=== PATIENT | female | born 1940 | race Caucasian/White ===

== ENCOUNTER 2016-05-06 10:27 | Inpatient (IN) | payer MEDICARE, OTHER ==
[2016-05-06 11:56] LABS: Glucose,Whole Blood 160 mg/dL (75-99)
--- NOTE | 2016-05-06 14:18 | XR ---
EXAMINATION TYPE: XR chest 2V DATE OF EXAM: 05/06/2016 2:14 PM COMPARISON: 09/24/2015 HISTORY: Cough and congestion FINDINGS: The lungs are clear and there is no pneumothorax, pleural effusion, or focal pneumonia. The heart is enlarged. Hypertrophic and degenerative changes spine noted. Postsurgical change in the right upper quadrant. No overt failure. IMPRESSION: 1. No acute process.
[2016-05-06] MEDS: BUDESONIDE 0.5 MG/2 ML NEBU INHALATION SCH ×2 (15:05→19:31)
[2016-05-06] MEDS: SODIUM CHLORIDE 0.9% 1,000 ML IV SCH (15:09)
[2016-05-06] MEDS: methylPREDNISolone SOD SUCCI 125 MG/2 ML VIAL IV SCH ×3 (15:10→18:05)
[2016-05-06] MEDS: HEPARIN SODIUM,PORCINE 5,000 UNIT/ML 1 ML VIAL SQ SCH (15:11)
[2016-05-06] MEDS: FAMOTIDINE 20 MG TAB PO SCH (15:11)
[2016-05-06] MEDS: IPRATROPIUM-ALBUTEROL 3 ML NEB INHALATION SCH ×2 (15:38→19:31)
[2016-05-06 15:57] LABS: Basophils % (A) 1 %; CH 28.9; Eosinophils # (A) 0.2 k/uL (0-0.7); Eosinophils % (A) 4 %; HDW 2.58; HGB 11.7 gm/dL (11.4-16.0); Luc # (Auto) 0.14; Luc % (Auto) 4; Lymphocytes # (A) 0.8 k/uL (1.0-4.8); Lymphocytes % (A) 20 %; MCH 28.5 pg (25.0-35.0); MCHC 32.4 g/dL (31.0-37.0); Mean Platelet Volume 7.7; Monocytes # (A) 0.3 k/uL (0-1.0); Monocytes % (A) 8 %; Neutrophils # (A) 2.5 k/uL (1.3-7.7); Neutrophils % (A) 63 %; RBC 4.09 m/uL (3.80-5.40); RDW 15.6 % (11.5-15.5); WBC 3.9 k/uL (3.8-10.6); WBC (Perox) 3.89
[2016-05-06 16:11] LABS: Potassium 5.2 mmol/L (3.5-5.1); Total Bilirubin 0.6 mg/dL (0.2-1.3); Total Protein 6.2 g/dL (6.3-8.2)
[2016-05-06] MEDS ORDERED: REPAGLINIDE 1 MG TAB PO SCH ×2 (17:30→20:25)
[2016-05-06 17:39] LABS: Glucose,Whole Blood 237 mg/dL (75-99)
[2016-05-06] MEDS ORDERED: LEVOFLOXACIN 500MG-D5W PMX 500 MG in DEXTROSE/WATER 1 100ML.BAG IVPB SCH (18:30)
[2016-05-06 20:15] LABS: Glucose,Whole Blood 384 mg/dL (75-99)
[2016-05-06] MEDS: MONTELUKAST 10 MG TAB PO SCH (20:36)
[2016-05-06] MEDS ORDERED: INSULIN LISPRO (humaLOG) 300 UNIT/3 ML VIAL SQ SCH (21:00)
[2016-05-06 21:25] LABS: Hemoglobin A1C 7.6 % (4.2-6.1)
[2016-05-06 21:32] LABS: Glucose,Whole Blood 418 mg/dL (75-99)
[2016-05-06] MEDS ORDERED: INSULIN REGULAR BOLUS (FROM DRIP BAG) IV ONE (21:33)
[2016-05-06 22:24] LABS: Glucose,Whole Blood 400 mg/dL (75-99)
[2016-05-06] MEDS: INSULIN REGULAR 100 UNIT in SODIUM CHLORIDE 0.9% 100 ML IV SCH (22:27)
[2016-05-06 22:51] LABS: Glucose,Whole Blood 397 mg/dL (75-99)
[2016-05-06 23:35] LABS: Glucose,Whole Blood 352 mg/dL (75-99)
[2016-05-06 23:50] LABS: Glucose,Whole Blood 350 mg/dL (75-99)
[2016-05-07 00:29] LABS: Glucose,Whole Blood 252 mg/dL (75-99)
[2016-05-07 01:02] LABS: Glucose,Whole Blood 240 mg/dL (75-99)
[2016-05-07] MEDS: methylPREDNISolone SOD SUCCI 125 MG/2 ML VIAL IV SCH ×4 (02:17→17:24)
[2016-05-07] MEDS: HEPARIN SODIUM,PORCINE 5,000 UNIT/ML 1 ML VIAL SQ SCH ×3 (02:17→15:50)
[2016-05-07 02:56] LABS: Glucose,Whole Blood 143 mg/dL (75-99)
[2016-05-07 05:05] LABS: Glucose,Whole Blood 168 mg/dL (75-99)
[2016-05-07] MEDS: SODIUM CHLORIDE 0.9% 1,000 ML IV SCH ×2 (05:13→16:49)
[2016-05-07 06:32] LABS: Glucose,Whole Blood 222 mg/dL (75-99)
[2016-05-07] MEDS: IPRATROPIUM-ALBUTEROL 3 ML NEB INHALATION SCH ×4 (07:29→19:30)
[2016-05-07] MEDS: BUDESONIDE 0.5 MG/2 ML NEBU INHALATION SCH ×2 (07:29→19:30)
[2016-05-07] MEDS ORDERED: INSULIN LISPRO (humaLOG) 300 UNIT/3 ML VIAL SQ SCH (07:30)
[2016-05-07] MEDS: amLODIPine 5 MG TAB PO SCH (08:14)
[2016-05-07] MEDS: ATORVASTATIN 40 MG TAB PO SCH (08:14)
[2016-05-07] MEDS: FAMOTIDINE 20 MG TAB PO SCH (08:15)
[2016-05-07] MEDS: VALSARTAN 160 MG TAB PO SCH (08:15)
[2016-05-07] MEDS: INSULIN LISPRO (humaLOG) 300 UNIT/3 ML VIAL SQ SCH ×3 (08:16→17:26)
[2016-05-07 08:21] LABS: Glucose,Whole Blood 237 mg/dL (75-99)
[2016-05-07 10:37] LABS: Glucose,Whole Blood 186 mg/dL (75-99)
--- NOTE | 2016-05-07 10:58 | HP ---
DATE OF ADMISSION: CHIEF COMPLAINT: A 76-year-old white female with significant respiratory distress. HISTORY OF PRESENT ILLNESS: This is a 76-year-old white female who failed outpatient treatment with antibiotics and steroids and updraft treatments. She developed audible wheezing and shortness of breath. Seen in my office due to significant shortness of breath. She was sent to the hospital due to significant audible wheezing and near syncope. Boyfriend states he has never seen her with this short of breath before. Respiratory rate was increased to 25 to 35 and she was sent to the hospital for direct admission for acute COPD exacerbation/asthma exacerbation after failing outpatient treatment and significant audible wheezing, respiratory distress. She has a history of proliferative drop in her breathing on a short-term basis and needs admission for IV steroids and antibiotics at this time and close monitoring for 24 to 48 hours. Cough is with brown-green phlegm over the past week worsening. As mentioned, she failed multiple outpatient medications prior to admission. She has history of asthma, COPD, for which she sees Dr. Valdivia. No hemoptysis. Increased tachypnea, tachycardia. No chest pain. Near syncope, lightheadedness, dizziness. Allergies to PENICILLIN, LATEX, CODEINE, BENADRYL, ERYTHROMYCIN, IODINE, SULFA, TETANUS, ASPIRIN. MEDICATIONS AT HOME: 1. Albuterol and Atrovent q.i.d. 2. Pulmicort 0.5 b.i.d. 3. Pepcid 20 b.i.d. 4. Atorvastatin 40 daily. 5. Amlodipine 5 mg daily. 6. Singulair 10 mg daily. 7. Diovan 320 daily. History of hypertension, asthma/COPD, dyslipidemia, diabetes mellitus, osteopenia. REVIEW OF SYSTEMS: Fourteen-point review of systems negative except for as mentioned in HPI. PHYSICAL EXAM: Blood pressure is 140 over 60 to 70. O2 sat was 92 on room air, temp 97.5, pulse is in the 80s to 90s. CARDIOVASCULAR: S1, S2. Regular rate and rhythm. Lungs show scattered wheeze x4. Decreased breath sounds x4. Audible wheezing is heard with any talking. Lightheaded, dizziness with ambulation out of a chair. CONSTITUTIONAL: She looks weak, tired, and fatigued from breathing. ABDOMEN: Distended due to obesity. No mass or organomegaly. EXTREMITIES: 1 to 2+ pedal edema bilaterally. MUSCULOSKELETAL: Range of motion full x4. ENT shows some mild thyromegaly. Integument shows decreased skin turgor, dry mucous membranes. ASSESSMENT: 1. Acute asthma/chronic obstructive pulmonary disease exacerbation. 2. Dehydration. 3. Failed outpatient therapy. 4. Diabetes mellitus. 5. Acute respiratory distress secondary to asthma and chronic obstructive pulmonary disease exacerbation. 6. Acute tracheobronchitis, rule out pneumonia. PLAN: IV steroids, updrafts with albuterol and Atrovent and Pulmicort will be needed, IV antibiotics. [facility] Home medicines will be reordered.
[2016-05-07 12:30] LABS: Glucose,Whole Blood 162 mg/dL (75-99)
[2016-05-07 17:02] LABS: Glucose,Whole Blood 315 mg/dL (75-99)
[2016-05-07] MEDS: LEVOFLOXACIN 250 MG TAB PO SCH (17:23)
--- NOTE | 2016-05-07 18:29 | P.CNPUL ---
History of Present Illness Consult date: 05/07/16 Reason for consult: COPD History of present illness: 76-year-old female patient an ex-smoker, coming in for increased shortness of breath. The patient started expressing shortness of breath approximately 3-4 days ago and her breathing progressively got worse to include symptoms of cough congestion wheezing along with dyspnea. No chest pain. No pleurisy. It is a phone acute COPD exacerbation was approximately 6 months ago. She follows up with Dr. Valdivia. Apparently, during this current episode, the patient had taken outpatient antibiotics and steroids and nebulized albuterol treatment without much of an help and for that reason she decided to come into the hospital for further treatment. At this point in time, the patient is on bronchodilators and systemic steroids. Clinically improved. She has still some hyperglycemia and for that reason she was placed on insulin drip at 2 units an hour for tighter blood sugar control. Review of Systems 12 point review of system was done and the positive findings are almost above Past Medical History Past Medical History: COPD, Diabetes Mellitus, Hyperlipidemia, Hypertension, Osteoarthritis (OA), Renal Disease Additional Past Medical History / Comment(s): COPD, NIDDM type II, diverticulitis, lower GI bleed, bowel obstructions with surgery, ckd stage I History of Any Multi-Drug Resistant Organisms: None Reported Past Surgical History: Cholecystectomy, Hysterectomy, Tonsillectomy, Tubal Ligation Additional Past Surgical History / Comment(s): EGDs/colonoscopies, bowel resections due to obstruction x2, bilateral cataracts removed. Past Anesthesia/Blood Transfusion Reactions: No Reported Reaction Past Psychological History: No Psychological Hx Reported Additional Psychological History / Comment(s): Pt resides alone in an apartment. She uses no assistive device. She drives. Smoking Status: Never smoker Past Alcohol Use History: None Reported Past Drug Use History: None Reported - Past Family History Mother Family Medical History: No Reported History Additional Family Medical History / Comment(s): Mother was healthy and lived to be 79yrs old. Brother(s) Family Medical History: Diabetes Mellitus Medications and Allergies Home Medications Medication Instructions Recorded Confirmed Type amLODIPine/VALSARTAN 1 tab PO DAILY 09/24/15 05/06/16 History [amLODIPine/VALSARTAN 5-320 mg] Atorvastatin [Lipitor] 40 mg PO DAILY 09/25/15 05/06/16 History Calcium Carbonate [Calcium] 600 mg PO DAILY 05/06/16 05/06/16 History Linagliptin/Metformin HCl 1 tab PO BID 05/06/16 05/06/16 History [Jentadueto 2.5 mg-500 mg Tab] Repaglinide [Prandin] 4 mg PO AC-TID 05/06/16 05/06/16 History Allergies Allergy/AdvReac Type Severity Reaction Status Date / Time Penicillins Allergy Severe Rash/Hives Verified 05/06/16 20:13 latex Allergy Unknown Rash/Hives/ Verified 05/06/16 20:13 Blisters codeine Allergy Rash/Hives Verified 05/06/16 20:13 diphenhydramine HCl Allergy Swelling Verified 05/06/16 20:13 [From Benadryl] erythromycin base Allergy Rash/Hives Verified 05/06/16 20:13 Iodinated Contrast Media - Allergy Rash/Hives Verified 05/06/16 20:13 Oral and [Iodinated Contrast Media - IV Dye] iodine Allergy Rash/Hives Verified 05/06/16 20:13 Sulfa (Sulfonamide Allergy Rash/Hives Verified 05/06/16 20:13 Antibiotics) Tetanus Vaccines and Toxoid Allergy Unknown Verified 05/06/16 20:13 [Tetanus Vaccines & Toxoid] Tetracyclines Allergy Rash/Hives Verified 05/06/16 20:13 aspirin AdvReac GI Bleed Verified 05/06/16 20:13 Physical Exam Vitals: Vital Signs Temp Pulse Pulse Pulse Resp BP Pulse Ox 05/07/16 16:00 101 H 84 18 05/07/16 14:27 97.7 F 84 18 136/67 94 L 05/07/16 11:31 80 05/07/16 11:20 80 95 05/07/16 08:00 101 H 75 18 05/07/16 07:00 97.5 F L 75 18 134/64 95 05/06/16 21:40 98.7 F 98 16 136/68 96 05/06/16 19:47 81 05/06/16 19:34 81 Intake and Output 05/07/16 05/07/16 05/07/16 06:59 14:59 22:59 Intake Total 676.791 22.709 1.5 Balance 676.791 22.709 1.5 Intake: IV 600 Sodium Chloride 0.9% 1, 600 000 ml @ 75 mls/hr IV . [id number] [facility] Rx#:[id number] Intake, IV Titration 76.791 22.709 1.5 Amount Insulin Regular 100 unit 76.791 22.709 1.5 In Sodium Chloride 0.9% 100 ml @ Titrate IV .Q0M [facility] Rx#:[id number] Other: Voiding Method Toilet Toilet # Voids 2 1 Head exam was generally normal. There was no scleral icterus or corneal arcus. Mucous membranes were moist.Neck was supple and without jugular venous distension, thyromegaly, or carotid bruits. Carotids were easily palpable bilaterally. There was no adenopathy. Lung sounds are diminished bilaterally along with some few scattered external wheeze.Cardiac exam revealed the PMI to be normally situated and sized. The rhythm was regular and no extrasystoles were noted during several minutes of auscultation. The first and second heart sounds were normal and physiologic splitting of the second heart sound was noted. There were no murmurs, rubs, clicks, or gallops.Abdominal exam revealed normal bowel sounds. The abdomen was soft, non-tender, and without masses, organomegaly, or appreciable enlargement of the abdominal aorta.Examination of the extremities revealed easily palpable radial, femoral and pedal pulses. There was no cyanosis, clubbing or edema. Results - Laboratory Findings CBC and BMP: 05/06/16 15:31 05/06/16 15:31 Abnormal lab findings: Abnormal Labs 05/06/16 05/06/16 05/06/16 11:48 15:31 15:31 RDW 15.6 H Lymphocytes # 0.8 L Potassium 5.2 H BUN 30 H Creatinine 1.58 H Glucose 248 H POC Glucose (mg/dL) 160 H Hemoglobin A1c Total Protein 6.2 L 05/06/16 05/06/16 05/06/16 15:31 17:27 20:13 RDW Lymphocytes # Potassium BUN Creatinine Glucose POC Glucose (mg/dL) 237 H 384 H Hemoglobin A1c 7.6 H Total Protein 05/06/16 05/06/16 05/06/16 21:30 22:23 22:50 RDW Lymphocytes # Potassium BUN Creatinine Glucose POC Glucose (mg/dL) 418 H 400 H 397 H Hemoglobin A1c Total Protein 05/06/16 05/06/16 05/07/16 23:34 23:49 00:27 RDW Lymphocytes # Potassium BUN Creatinine Glucose POC Glucose (mg/dL) 352 H 350 H 252 H Hemoglobin A1c Total Protein 05/07/16 05/07/16 05/07/16 01:01 02:44 04:59 RDW Lymphocytes # Potassium BUN Creatinine Glucose POC Glucose (mg/dL) 240 H 143 H 168 H Hemoglobin A1c Total Protein 05/07/16 05/07/16 05/07/16 06:27 08:20 10:34 RDW Lymphocytes # Potassium BUN Creatinine Glucose POC Glucose (mg/dL) 222 H 237 H 186 H Hemoglobin A1c Total Protein 05/07/16 05/07/16 12:29 17:00 RDW Lymphocytes # Potassium BUN Creatinine Glucose POC Glucose (mg/dL) 162 H 315 H Hemoglobin A1c Total Protein - Diagnostic Findings Chest x-ray: image reviewed Assessment and Plan Plan: Assessment 1 acute COPD exacerbation, recovering 2 shortness of breath secondary to above, recovering 3 chronic renal insufficiency, currently stable 4 diabetes mellitus currently on insulin drip for blood sugar control due to steroid-induced hyperglycemia 5 hypertension 6 hyperlipidemia Plan Agree on the current treatment. Recommend outpatient maintenance medication for this patient and my recommendation would include Spiriva 1 addition day along albuterol nebulized treatments or HFA on an as needed basis. Clinically much improved and the patient can be switched to prednisone burst taper with the next 24 hours. Encourage ablation in the hallway. We'll likely, of insulin drip once the IV Solu Medrol was discontinued. We'll follow.
[2016-05-07 18:59] LABS: Glucose,Whole Blood 301 mg/dL (75-99)
[2016-05-07] MEDS: INSULIN REGULAR 100 UNIT in SODIUM CHLORIDE 0.9% 100 ML IV SCH (19:27)
[2016-05-07] MEDS: MONTELUKAST 10 MG TAB PO SCH (19:30)
[2016-05-07] MEDS ORDERED: SODIUM CHLORIDE 0.65% NASAL SPRAY 44 ML BTL NASAL PRN (21:01)
[2016-05-07 21:04] LABS: Glucose,Whole Blood 238 mg/dL (75-99)
[2016-05-07 22:55] LABS: Glucose,Whole Blood 170 mg/dL (75-99)
[2016-05-08] MEDS: methylPREDNISolone SOD SUCCI 125 MG/2 ML VIAL IV SCH ×5 (00:02→23:08)
[2016-05-08] MEDS: HEPARIN SODIUM,PORCINE 5,000 UNIT/ML 1 ML VIAL SQ SCH ×4 (00:02→23:08)
[2016-05-08 01:00] LABS: Glucose,Whole Blood 177 mg/dL (75-99)
[2016-05-08 03:02] LABS: Glucose,Whole Blood 183 mg/dL (75-99)
[2016-05-08] MEDS: IPRATROPIUM-ALBUTEROL 3 ML NEB INHALATION SCH ×5 (04:14→19:35)
[2016-05-08 05:04] LABS: Glucose,Whole Blood 190 mg/dL (75-99)
[2016-05-08] MEDS: INSULIN REGULAR 100 UNIT in SODIUM CHLORIDE 0.9% 100 ML IV SCH ×2 (05:21→21:24)
[2016-05-08] MEDS: SODIUM CHLORIDE 0.9% 1,000 ML IV SCH ×2 (06:08→20:30)
[2016-05-08 07:50] LABS: Glucose,Whole Blood 221 mg/dL (75-99)
[2016-05-08] MEDS: BUDESONIDE 0.5 MG/2 ML NEBU INHALATION SCH ×2 (08:07→19:33)
[2016-05-08] MEDS: FAMOTIDINE 20 MG TAB PO SCH (08:42)
[2016-05-08] MEDS: INSULIN LISPRO (humaLOG) 300 UNIT/3 ML VIAL SQ SCH ×3 (08:42→17:16)
[2016-05-08] MEDS: amLODIPine 5 MG TAB PO SCH (08:44)
[2016-05-08] MEDS: ATORVASTATIN 40 MG TAB PO SCH (08:44)
[2016-05-08] MEDS: VALSARTAN 160 MG TAB PO SCH (08:44)
[2016-05-08 09:29] LABS: Glucose,Whole Blood 322 mg/dL (75-99)
--- NOTE | 2016-05-08 10:13 | CDI ---
In responding to this query, please exercise your independent professional judgment. The [facility] Coding Staff and Clinical Documentation Specialists appreciate your assistance in clarifying documentation, maintaining compliance with coding guidelines, accurately documenting patients condition and capturing severity of illness. The fact that a question is asked does not imply that any particular answer is desired or expected. Communication forms are a method of clarifying documentation and are not made part of the Legal Health Record. Thank you in advance for your clarification. Last Revision, June 2015 Judy Wilkes [address] [facility] [place] [address] Documentation Clarification Form Date: 05/08/2016 9:54:00 AM From: Kristen Khan Admit Date: 05/06/2016 11:00:00 AM Patient Name: Page Travis Visit Number: [id number] Discharge Date: Dr. Alexander Sarkar/Tata Welch [employer] Asthma is documented in the H&P Patient history/risk factors: Asthma, COPD, Diabetes mellitus, Hypertension Clinical Indicators: Developed audible wheezing and shortness of breath, Cough productive. Chest x-ray: no acute process Vital Signs: 136/77 101 18 97.0 98 RA Treatment: Updrafts: with Albuterol and Atrovent and Pulmicort Solu-Medrol IV Levaquin PO IV @ 75/ml hrs Singular PO Consults: Pulmonary: Acute COPD exacerbation In your professional opinion, can you please further specify Asthma, if known? With Acute Exacerbation Status asthmaticus Acute lower respiratory infection COPD (specify with or without exacerbation) Chronic obstructive bronchitis Other, please specify Unable to determine Severity Mild intermittent Mild persistent Moderate persistent Severe persistent Other, please specify Unable to determine Form or Type Cough variant Childhood Exercise induced bronchospasm Extrinsic allergic Idiosyncratic Intrinsic nonallergic Late-onset Mixed Other, please specify Unable to determine Please document in your progress notes and discharge summary in order to capture severity of illness and risk of mortality. Include clinical findings that support your diagnosis. FYI: Press F11 to launch patient chart. Place X here if this finding has no clinical significance, is not applicable or if you are not able to provide any additional documentation. MTDD
[2016-05-08 11:47] LABS: Glucose,Whole Blood 370 mg/dL (75-99)
--- NOTE | 2016-05-08 13:48 | P.PN ---
Subjective 76-year-old being seen with the attending. Patient stated that she had a bad night last night with very short of breath. Patient has audible wheezing noted this morning. Patients being followed by pulmonology service for acute exacerbation COPD currently patient is on an insulin drip per protocol secondary to steroid-induced hyperglycemia. Currently on IV Solu-Medrol 60 every 6 hours per pulmonology's recommendation Patient is stating that she lives in an apartment complex in which the patient states is exposed to secondhand smoke Objective - Vital Signs Vital signs: Vital Signs Temp 97.5 F L 05/08/16 07:00 Pulse 92 05/08/16 11:08 Resp 18 05/08/16 08:00 BP 131/70 05/08/16 07:00 Pulse Ox 97 05/08/16 07:00 Intake & Output 05/07/16 05/08/16 05/08/16 18:59 06:59 18:59 Intake Total 24.209 794.991 32.078 Balance 24.209 794.991 32.078 Intake: Intake, IV Titration 24.209 34.991 32.078 Amount Insulin Regular 100 unit 24.209 34.991 32.078 In Sodium Chloride 0.9% 100 ml @ Titrate IV .Q0M [facility] Rx#:[id number] Oral 760 Other: Voiding Method Toilet Toilet Toilet # Voids 1 2 - Exam Physical exam 76-year-old female sitting up in bed currently taking a lunch diet talkative states feels short of breath with any exertion Lungs coarse rhonchi throughout with audible prolonged expiratory wheezing noted current nasal cannula 2 L Heart S1-S2 audible regular no murmur abdomen soft nondistended no nausea vomiting Extremities no edema noted - Labs CBC & Chem 7: 05/06/16 15:31 05/06/16 15:31 Labs: Abnormal Lab Results - Last 24 Hours (Table) 05/07/16 05/07/16 05/07/16 Range/Units 17:00 18:57 20:52 POC Glucose (mg/dL) 315 H 301 H 238 H (75-99) mg/dL 05/07/16 05/08/16 05/08/16 Range/Units 22:53 00:56 03:01 POC Glucose (mg/dL) 170 H 177 H 183 H (75-99) mg/dL 05/08/16 05/08/16 05/08/16 Range/Units 04:59 07:25 09:21 POC Glucose (mg/dL) 190 H 221 H 322 H (75-99) mg/dL 05/08/16 Range/Units 11:42 POC Glucose (mg/dL) 370 H (75-99) mg/dL Assessment and Plan Plan: Impression Hypertension Present on admission shortness of breath due to an acute exacerbation of COPD Hyperglycemic episodes suspect due to IV steroids Hyperlipidemia Present on admission shortness of breath suspect due to an exacerbation COPD Anxiety disorder nonspecified suspect worse with IV Solu-Medrol Shortness of breath suspect unspecified bronchial asthma triggered by exposure to secondhand smoke Plan Continue with recommendations by pulmonology service defer to Continue IV Solu-Medrol per pulmonology's recommendations DVT and GI prophylaxis Resume home meds as appropriate Further recommendations pending will follow The above dictated assessment and findings were discussed with dr altamirano Impression and the plan of care have been dictated as directed. Tata Welch nurse practitioner acting as a scribe for dr altamirano
[2016-05-08 14:26] LABS: Glucose,Whole Blood 375 mg/dL (75-99)
--- NOTE | 2016-05-08 16:03 | P.PN ---
Subjective This is a very pleasant 76-year-old female patient who follows with Dr. Alexander Sarkar as her primary care physician. She also follows with Dr. Valdivia in our office for chronic obstructive pulmonary disease. She presented here with complaints of increasing shortness of breath cough and congestion. She is treated for COPD exacerbation. She is seen again today 05/08/2016 in follow- up. She is awake and alert in no acute distress. She states she does have a continued tightness in her chest and shortness of breath on exertion. She is a dry nonproductive cough. No chills or night sweats. She is maintaining good O2 saturations in the upper 90s on room air. She is afebrile. Objective - Vital Signs Vital signs: Vital Signs Temp 98.1 F 05/08/16 15:00 Pulse 96 05/08/16 15:41 Resp 18 05/08/16 15:00 BP 117/58 05/08/16 15:00 Pulse Ox 98 05/08/16 15:00 Intake & Output 05/07/16 05/08/16 05/08/16 18:59 06:59 18:59 Intake Total 24.209 794.991 32.078 Balance 24.209 794.991 32.078 Intake: Intake, IV Titration 24.209 34.991 32.078 Amount Insulin Regular 100 unit 24.209 34.991 32.078 In Sodium Chloride 0.9% 100 ml @ Titrate IV .Q0M [facility] Rx#:[id number] Oral 760 Other: Voiding Method Toilet Toilet Toilet # Voids 1 2 3 - Exam GENERAL EXAM: Alert, comfortable in no apparent distress. HEAD: Normocephalic. EYES: Normal reaction of pupils, equal size. NOSE: Clear with pink turbinates. THROAT: No erythema or exudates. NECK: No masses, no JVD. CHEST: No chest wall deformity. LUNGS: Equal air entry with no crackles, wheeze, rhonchi or dullness. CVS: S1 and S2 normal with no audible mumurs, regular rhythm. ABDOMEN: No hepatosplenomegaly, normal bowel sounds, no guarding or rigidity. SPINE: No scoliosis or deformity SKIN: No rashes CENTRAL NERVOUS SYSTEM: No focal deficits, tone is normal in all 4 extremities. Extremities: There is no significant peripheral edema. No clubbing, no cyanosis. Peripheral pulses are intact. - Labs CBC & Chem 7: 05/06/16 15:31 05/06/16 15:31 Labs: Abnormal Lab Results - Last 24 Hours (Table) 05/07/16 05/07/16 05/07/16 Range/Units 17:00 18:57 20:52 POC Glucose (mg/dL) 315 H 301 H 238 H (75-99) mg/dL 05/07/16 05/08/16 05/08/16 Range/Units 22:53 00:56 03:01 POC Glucose (mg/dL) 170 H 177 H 183 H (75-99) mg/dL 05/08/16 05/08/16 05/08/16 Range/Units 04:59 07:25 09:21 POC Glucose (mg/dL) 190 H 221 H 322 H (75-99) mg/dL 05/08/16 05/08/16 Range/Units 11:42 14:21 POC Glucose (mg/dL) 370 H 375 H (75-99) mg/dL Assessment and Plan Plan: Impression: #1 Acute exacerbation of chronic obstructive pulmonary disease. #2 Dyspnea secondary to above. #3 Chronic renal insufficiency, currently stable. #4 Diabetes mellitus with steroid-induced hyperglycemia maintained on insulin drip. #5 Hypertension. #6 Hyperlipidemia. Plan: The patient was seen and evaluated by Dr. Rodriguez. She is improved today as compared to yesterday but not quite back to her baseline. We'll continue with her current pulmonary medications. We will increase her activity as tolerated. We'll continue to follow make further recommendations based on her clinical status.
[2016-05-08 17:12] LABS: Glucose,Whole Blood 349 mg/dL (75-99)
[2016-05-08] MEDS: LEVOFLOXACIN 250 MG TAB PO SCH (17:16)
[2016-05-08 19:07] LABS: Glucose,Whole Blood 296 mg/dL (75-99)
[2016-05-08] MEDS: MONTELUKAST 10 MG TAB PO SCH (20:29)
[2016-05-08 21:18] LABS: Glucose,Whole Blood 282 mg/dL (75-99)
[2016-05-08 23:08] LABS: Glucose,Whole Blood 293 mg/dL (75-99)
[2016-05-08] MEDS: IPRATROPIUM-ALBUTEROL 3 ML NEB INHALATION PRN (23:20)
[2016-05-09 01:10] LABS: Glucose,Whole Blood 282 mg/dL (75-99)
[2016-05-09] MEDS: IPRATROPIUM-ALBUTEROL 3 ML NEB INHALATION PRN (03:50)
[2016-05-09 04:12] LABS: Glucose,Whole Blood 197 mg/dL (75-99)
[2016-05-09 05:11] LABS: Glucose,Whole Blood 183 mg/dL (75-99)
[2016-05-09] MEDS: methylPREDNISolone SOD SUCCI 125 MG/2 ML VIAL IV SCH ×3 (05:15→17:08)
[2016-05-09 07:13] LABS: Glucose,Whole Blood 214 mg/dL (75-99)
[2016-05-09] MEDS: IPRATROPIUM-ALBUTEROL 3 ML NEB INHALATION SCH ×4 (07:31→19:53)
[2016-05-09] MEDS: BUDESONIDE 0.5 MG/2 ML NEBU INHALATION SCH ×2 (07:31→19:52)
[2016-05-09] MEDS: INSULIN LISPRO (humaLOG) 300 UNIT/3 ML VIAL SQ SCH ×3 (08:13→17:07)
[2016-05-09] MEDS: HEPARIN SODIUM,PORCINE 5,000 UNIT/ML 1 ML VIAL SQ SCH ×2 (08:14→17:07)
[2016-05-09 08:15] LABS: Calcium 9.2 mg/dL (8.4-10.2); Potassium 4.9 mmol/L (3.5-5.1); Total Bilirubin 0.4 mg/dL (0.2-1.3); Total Protein 5.7 g/dL (6.3-8.2)
[2016-05-09] MEDS: ATORVASTATIN 40 MG TAB PO SCH (08:15)
[2016-05-09] MEDS: FAMOTIDINE 20 MG TAB PO SCH (08:15)
[2016-05-09] MEDS: amLODIPine 5 MG TAB PO SCH (08:16)
[2016-05-09] MEDS: VALSARTAN 160 MG TAB PO SCH (08:17)
[2016-05-09 10:52] LABS: Glucose,Whole Blood 300 mg/dL (75-99)
[2016-05-09] MEDS: SODIUM CHLORIDE 0.9% 1,000 ML IV SCH (10:53)
[2016-05-09] MEDS ORDERED: FUROSEMIDE 10 MG/ML 4 ML VIAL IV STA (11:08)
[2016-05-09] MEDS ORDERED: guaiFENesin-DM 100-10MG/5ML 10 ML CUP PO SCH (11:15)
--- NOTE | 2016-05-09 11:43 | P.PN ---
Subjective Principal diagnosis: Acute exacerbation of COPD Patient seen and examined covering for Dr. Alexander Sarkar. The patient states that she does not feel good. Her breathing is worse today. She does not feel better since coming in. She does follow with Dr. Rodriguez. Objective - Vital Signs Vital signs: Vital Signs Temp 97.5 F L 05/09/16 07:00 Pulse 88 05/09/16 11:35 Resp 18 05/09/16 08:00 BP 135/65 05/09/16 07:00 Pulse Ox 98 05/09/16 07:00 Intake & Output 05/08/16 05/09/16 05/09/16 18:59 06:59 18:59 Intake Total 82.578 271.982 16.386 Balance 82.578 271.982 16.386 Intake: IV 160 Sodium Chloride 0.9% 1, 160 000 ml @ 75 mls/hr IV . [id number] [facility] Rx#:[id number] Intake, IV Titration 82.578 61.982 16.386 Amount Insulin Regular 100 unit 82.578 61.982 16.386 In Sodium Chloride 0.9% 100 ml @ Titrate IV .Q0M [facility] Rx#:[id number] Oral 50 Other: Voiding Method Toilet Toilet Toilet # Voids 3 1 - Exam Gen.: Patient is retired 3, no acute distress, overweight Cardiovascular: Regular rate and rhythm, S1/S2 Lungs: Coarse breath sounds bilaterally with expiratory wheezing Abdomen: Soft nontender nondistended positive bowel sounds Extremities: No edema - Labs CBC & Chem 7: 05/06/16 15:31 05/09/16 07:14 Labs: Abnormal Lab Results - Last 24 Hours (Table) 05/08/16 05/08/16 05/08/16 Range/Units 11:42 14:21 17:10 Sodium (137-145) mmol/L Carbon Dioxide (22-30) mmol/L BUN (7-17) mg/dL Creatinine (0.52-1.04) mg/dL Glucose (74-99) mg/dL POC Glucose (mg/dL) 370 H 375 H 349 H (75-99) mg/dL Total Protein (6.3-8.2) g/dL 05/08/16 05/08/16 05/08/16 Range/Units 19:03 20:57 23:07 Sodium (137-145) mmol/L Carbon Dioxide (22-30) mmol/L BUN (7-17) mg/dL Creatinine (0.52-1.04) mg/dL Glucose (74-99) mg/dL POC Glucose (mg/dL) 296 H 282 H 293 H (75-99) mg/dL Total Protein (6.3-8.2) g/dL 05/09/16 05/09/16 05/09/16 Range/Units 00:56 04:10 04:59 Sodium (137-145) mmol/L Carbon Dioxide (22-30) mmol/L BUN (7-17) mg/dL Creatinine (0.52-1.04) mg/dL Glucose (74-99) mg/dL POC Glucose (mg/dL) 282 H 197 H 183 H (75-99) mg/dL Total Protein (6.3-8.2) g/dL 05/09/16 05/09/16 05/09/16 Range/Units 07:04 07:14 10:50 Sodium 136 L (137-145) mmol/L Carbon Dioxide 18 L (22-30) mmol/L BUN 45 H (7-17) mg/dL Creatinine 1.76 H (0.52-1.04) mg/dL Glucose 205 H (74-99) mg/dL POC Glucose (mg/dL) 214 H 300 H (75-99) mg/dL Total Protein 5.7 L (6.3-8.2) g/dL Assessment and Plan Plan: Acute exacerbation of COPD Hypertension Present on admission shortness of breath due to an acute exacerbation of COPD Hyperglycemic episodes suspect due to IV steroids Hyperlipidemia Anxiety disorder nonspecified suspect worse with IV Solu-Medrol Shortness of breath suspect unspecified bronchial asthma triggered by exposure to secondhand smoke Plan Continue with recommendations by pulmonology service defer to Continue IV Solu-Medrol per pulmonology's recommendations DVT and GI prophylaxis Resume home meds as appropriate Further recommendations pending will follow
[2016-05-09] MEDS: guaiFENesin-DM 100-10MG/5ML 10 ML CUP PO SCH ×2 (12:17→17:08)
--- NOTE | 2016-05-09 12:47 | XR ---
EXAMINATION TYPE: XR chest 2V DATE OF EXAM: 05/09/2016 12:03 PM COMPARISON: 05/06/2016 HISTORY: 76 year-old female shortness of breath, dyspnea TECHNIQUE: Frontal and lateral views FINDINGS: Heart remains borderline enlarged with elongation of the thoracic aorta. Diffuse interstitial promine nce persists. No consolidation or pleural effusion. IMPRESSION: Overall stable borderline cardiomegaly and diffuse interstitial prominence. Correlate for possible et iologies including mild CHF, bronchitis, or chronic asthma.
[2016-05-09 13:47] LABS: Glucose,Whole Blood 246 mg/dL (75-99)
--- NOTE | 2016-05-09 13:59 | P.PN ---
Subjective This is a very pleasant 76-year-old female patient who follows with Dr. Alexander Sarkar as her primary care physician. She also follows with Dr. Valdivia in our office for chronic obstructive pulmonary disease. She presented here with complaints of increasing shortness of breath cough and congestion. She is treated for COPD exacerbation. She is seen again today 05/09/2016 in follow- up. She is awake and alert in no acute distress. she does state that she is not much improved today as compared to yesterday. She states she does have trouble in the evening and needs to request additional updraft treatments. Her chest x-ray today remains without acute pulmonary process. She is still bronchospastic and wheezy. She has a dry nonproductive cough. Objective - Vital Signs Vital signs: Vital Signs Temp 97.5 F L 05/09/16 07:00 Pulse 88 05/09/16 11:35 Resp 18 05/09/16 08:00 BP 135/65 05/09/16 07:00 Pulse Ox 98 05/09/16 07:00 Intake & Output 05/08/16 05/09/16 05/09/16 18:59 06:59 18:59 Intake Total 82.578 271.982 16.386 Balance 82.578 271.982 16.386 Intake: IV 160 Sodium Chloride 0.9% 1, 160 000 ml @ 75 mls/hr IV . [id number] [facility] Rx#:[id number] Intake, IV Titration 82.578 61.982 16.386 Amount Insulin Regular 100 unit 82.578 61.982 16.386 In Sodium Chloride 0.9% 100 ml @ Titrate IV .Q0M [facility] Rx#:[id number] Oral 50 Other: Voiding Method Toilet Toilet Toilet # Voids 3 1 - Exam GENERAL EXAM: Alert, comfortable in no apparent distress. HEAD: Normocephalic. EYES: Normal reaction of pupils, equal size. NOSE: Clear with pink turbinates. THROAT: No erythema or exudates. NECK: No masses, no JVD. CHEST: No chest wall deformity. LUNGS: Equal air entry with bilateral wheeze. CVS: S1 and S2 normal with no audible murmurs, regular rhythm. ABDOMEN: No hepatosplenomegaly, normal bowel sounds, no guarding or rigidity. SPINE: No scoliosis or deformity SKIN: No rashes CENTRAL NERVOUS SYSTEM: No focal deficits, tone is normal in all 4 extremities. Extremities: There is no significant peripheral edema. No clubbing, no cyanosis. Peripheral pulses are intact. - Labs CBC & Chem 7: 05/06/16 15:31 05/09/16 07:14 Labs: Abnormal Lab Results - Last 24 Hours (Table) 05/08/16 05/08/16 05/08/16 Range/Units 14:21 17:10 19:03 Sodium (137-145) mmol/L Carbon Dioxide (22-30) mmol/L BUN (7-17) mg/dL Creatinine (0.52-1.04) mg/dL Glucose (74-99) mg/dL POC Glucose (mg/dL) 375 H 349 H 296 H (75-99) mg/dL Total Protein (6.3-8.2) g/dL 05/08/16 05/08/16 05/09/16 Range/Units 20:57 23:07 00:56 Sodium (137-145) mmol/L Carbon Dioxide (22-30) mmol/L BUN (7-17) mg/dL Creatinine (0.52-1.04) mg/dL Glucose (74-99) mg/dL POC Glucose (mg/dL) 282 H 293 H 282 H (75-99) mg/dL Total Protein (6.3-8.2) g/dL 05/09/16 05/09/16 05/09/16 Range/Units 04:10 04:59 07:04 Sodium (137-145) mmol/L Carbon Dioxide (22-30) mmol/L BUN (7-17) mg/dL Creatinine (0.52-1.04) mg/dL Glucose (74-99) mg/dL POC Glucose (mg/dL) 197 H 183 H 214 H (75-99) mg/dL Total Protein (6.3-8.2) g/dL 05/09/16 05/09/16 Range/Units 07:14 10:50 Sodium 136 L (137-145) mmol/L Carbon Dioxide 18 L (22-30) mmol/L BUN 45 H (7-17) mg/dL Creatinine 1.76 H (0.52-1.04) mg/dL Glucose 205 H (74-99) mg/dL POC Glucose (mg/dL) 300 H (75-99) mg/dL Total Protein 5.7 L (6.3-8.2) g/dL Assessment and Plan Plan: Impression: #1 Acute exacerbation of chronic obstructive pulmonary disease. On 05/09/2016 she continues to be bronchospastic and wheezing. Chest x-ray reveals no acute pulmonary process. #2 Dyspnea secondary to above. #3 Chronic renal insufficiency, currently stable. #4 Diabetes mellitus with steroid-induced hyperglycemia maintained on insulin drip. #5 Hypertension. #6 Hyperlipidemia. Plan: The patient was seen and evaluated by Dr. Rodriguez. She continues with a dry nonproductive cough and wheezing. Chest x-ray reveals no acute pulmonary process. We'll continue with her current pulmonary medications including DuoNeb inhalations 4 times a day and when necessary, IV Solu-Medrol 60 mg every 6 hours, empiric antibiotics in the form of Levaquin. We'll add Pulmicort and Perforomist inhalations twice a day. We'll also add Robitussin-DM every 6 hours. We will increase her activity as tolerated. We'll continue to follow and make further recommendations based on her clinical status.
[2016-05-09 15:26] LABS: Glucose,Whole Blood 253 mg/dL (75-99)
[2016-05-09] MEDS: INSULIN REGULAR 100 UNIT in SODIUM CHLORIDE 0.9% 100 ML IV SCH (17:03)
[2016-05-09] MEDS: LEVOFLOXACIN 250 MG TAB PO SCH (17:08)
[2016-05-09 17:17] LABS: Glucose,Whole Blood 277 mg/dL (75-99)
[2016-05-09 19:16] LABS: Glucose,Whole Blood 309 mg/dL (75-99)
[2016-05-09] MEDS: FORMOTEROL FUMARATE 20 MCG/2 ML NEBU INHALATION SCH (19:52)
[2016-05-09] MEDS ORDERED: BUDESONIDE 0.5 MG/2 ML NEBU INHALATION SCH (20:00)
[2016-05-09] MEDS: MONTELUKAST 10 MG TAB PO SCH (20:53)
[2016-05-09 21:02] LABS: Glucose,Whole Blood 330 mg/dL (75-99)
[2016-05-09 23:07] LABS: Glucose,Whole Blood 279 mg/dL (75-99)
[2016-05-10] MEDS: HEPARIN SODIUM,PORCINE 5,000 UNIT/ML 1 ML VIAL SQ SCH ×3 (00:08→15:17)
[2016-05-10] MEDS: guaiFENesin-DM 100-10MG/5ML 10 ML CUP PO SCH ×4 (00:08→17:02)
[2016-05-10] MEDS: methylPREDNISolone SOD SUCCI 125 MG/2 ML VIAL IV SCH ×4 (00:08→17:02)
[2016-05-10 01:26] LABS: Glucose,Whole Blood 186 mg/dL (75-99)
[2016-05-10 03:13] LABS: Glucose,Whole Blood 159 mg/dL (75-99)
[2016-05-10 05:09] LABS: Glucose,Whole Blood 162 mg/dL (75-99)
[2016-05-10] MEDS: SODIUM CHLORIDE 0.9% 1,000 ML IV SCH ×4 (05:13→15:16)
[2016-05-10] MEDS: IPRATROPIUM-ALBUTEROL 3 ML NEB INHALATION SCH ×4 (07:21→19:22)
[2016-05-10] MEDS: BUDESONIDE 0.5 MG/2 ML NEBU INHALATION SCH ×2 (07:21→19:22)
[2016-05-10] MEDS: FORMOTEROL FUMARATE 20 MCG/2 ML NEBU INHALATION SCH ×2 (07:21→19:22)
[2016-05-10 07:22] LABS: Glucose,Whole Blood 190 mg/dL (75-99)
[2016-05-10] MEDS: FAMOTIDINE 20 MG TAB PO SCH (07:24)
[2016-05-10] MEDS: VALSARTAN 160 MG TAB PO SCH (07:25)
[2016-05-10] MEDS: ATORVASTATIN 40 MG TAB PO SCH (07:25)
[2016-05-10] MEDS: amLODIPine 5 MG TAB PO SCH (07:25)
[2016-05-10] MEDS: INSULIN LISPRO (humaLOG) 300 UNIT/3 ML VIAL SQ SCH ×3 (07:25→17:02)
[2016-05-10 09:14] LABS: Glucose,Whole Blood 251 mg/dL (75-99)
[2016-05-10 11:31] LABS: Glucose,Whole Blood 247 mg/dL (75-99)
[2016-05-10 13:32] LABS: Glucose,Whole Blood 211 mg/dL (75-99)
--- NOTE | 2016-05-10 14:50 | P.PN ---
Subjective 76-year-old female patient an ex-smoker, coming in for increased shortness of breath. The patient started expressing shortness of breath approximately 3-4 days ago and her breathing progressively got worse to include symptoms of cough congestion wheezing along with dyspnea. No chest pain. No pleurisy. It is a phone acute COPD exacerbation was approximately 6 months ago. She follows up with Dr. Valdivia. Apparently, during this current episode, the patient had taken outpatient antibiotics and steroids and nebulized albuterol treatment without much of an help and for that reason she decided to come into the hospital for further treatment. At this point in time, the patient is on bronchodilators and systemic steroids. Clinically improved. She has still some hyperglycemia and for that reason she was placed on insulin drip at 2 units an hour for tighter blood sugar control. On 05/10/2016, the patient is being seen in follow-up. She remains bronchus spastic and wheezy and there is been limited improvement in her acute COPD exacerbation with a past 24-48 hours. He is on this, I opted to put the patient a combination of Perforomist and Pulmicort neb last treatment twice a day, albuterol and Atrovent about treatments 4 times a day, IV Solu-Medrol. The patient remains on 40 units of insulin for blood sugar control. Chest x- ray remains free of any pulmonary infiltrates or pneumonia. Objective - Vital Signs Vital signs: Vital Signs Temp 97 F L 05/10/16 07:00 Pulse 84 05/10/16 11:15 Resp 20 05/10/16 07:59 BP 154/78 05/10/16 07:00 Pulse Ox 100 05/10/16 07:00 Intake & Output 05/09/16 05/10/16 05/10/16 18:59 06:59 18:59 Intake Total 120.558 67.705 96.731 Balance 120.558 67.705 96.731 Intake: IV 70 70 Sodium Chloride 0.9% 1, 70 70 000 ml @ 10 mls/hr IV . Q24H [facility] Rx#:[id number] Intake, IV Titration 50.558 67.705 26.731 Amount Insulin Regular 100 unit 50.558 67.705 26.731 In Sodium Chloride 0.9% 100 ml @ Titrate IV .Q0M [facility] Rx#:[id number] Other: Voiding Method Toilet Toilet Toilet # Voids 1 - Exam Head exam was generally normal. There was no scleral icterus or corneal arcus. Mucous membranes were moist.Neck was supple and without jugular venous distension, thyromegaly, or carotid bruits. Carotids were easily palpable bilaterally. There was no adenopathy. Lung sounds are diminished bilaterally along with diffuse expiratory wheezes throughout the lung grimes.Cardiac exam revealed the PMI to be normally situated and sized. The rhythm was regular and no extrasystoles were noted during several minutes of auscultation. The first and second heart sounds were normal and physiologic splitting of the second heart sound was noted. There were no murmurs, rubs, clicks, or gallops.Abdominal exam revealed normal bowel sounds. The abdomen was soft, non- tender, and without masses, organomegaly, or appreciable enlargement of the abdominal aorta.Examination of the extremities revealed easily palpable radial, femoral and pedal pulses. There was no cyanosis, clubbing or edema. - Labs CBC & Chem 7: 05/06/16 15:31 05/09/16 07:14 Labs: Abnormal Lab Results - Last 24 Hours (Table) 05/09/16 05/09/16 05/09/16 Range/Units 15:23 17:00 19:12 POC Glucose (mg/dL) 253 H 277 H 309 H (75-99) mg/dL 05/09/16 05/09/16 05/10/16 Range/Units 21:00 22:52 01:13 POC Glucose (mg/dL) 330 H 279 H 186 H (75-99) mg/dL 05/10/16 05/10/16 05/10/16 Range/Units 03:00 05:01 07:15 POC Glucose (mg/dL) 159 H 162 H 190 H (75-99) mg/dL 05/10/16 05/10/16 05/10/16 Range/Units 09:11 11:29 13:31 POC Glucose (mg/dL) 251 H 247 H 211 H (75-99) mg/dL Assessment and Plan Plan: Assessment 1 acute COPD exacerbation On 05/10/2016, the patient has showed limited improvement in her COPD exacerbation. She still quite bronchospastic and wheezy and short of breath. Chest x-ray remains clear. Rule out acute viral bronchitis with secondary to COPD exacerbation. 2 shortness of breath secondary to above, recovering 3 chronic renal insufficiency, currently stable 4 diabetes mellitus currently on insulin drip for blood sugar control due to steroid-induced hyperglycemia 5 hypertension 6 hyperlipidemia Plan Into same treatment. Reevaluate this patient in a.m. Solu-Medrol be kept at a high dose. Continue the insulin drip for blood sugar control. Anticipate improvement with the next 24-48 hours.
[2016-05-10] MEDS: INSULIN REGULAR 100 UNIT in SODIUM CHLORIDE 0.9% 100 ML IV SCH (15:07)
[2016-05-10 15:14] LABS: Glucose,Whole Blood 232 mg/dL (75-99)
[2016-05-10 16:58] LABS: Glucose,Whole Blood 288 mg/dL (75-99)
--- NOTE | 2016-05-10 16:59 | P.PN ---
Subjective Principal diagnosis: Acute exacerbation of COPD Patient seen and examined. Patient states that her breathing is still not good. She still wheezing and having shortness of breath. She states she feels like she cannot go home because her shortness of breath with exertion. Objective - Vital Signs Vital signs: Vital Signs Temp 98 F 05/10/16 15:00 Pulse 82 05/10/16 15:15 Resp 16 05/10/16 15:14 BP 148/80 05/10/16 15:00 Pulse Ox 94 L 05/10/16 15:00 Intake & Output 05/09/16 05/10/16 05/10/16 18:59 06:59 18:59 Intake Total 120.558 67.705 102.033 Balance 120.558 67.705 102.033 Intake: IV 70 70 Sodium Chloride 0.9% 1, 70 70 000 ml @ 10 mls/hr IV . Q24H [facility] Rx#:[id number] Intake, IV Titration 50.558 67.705 32.033 Amount Insulin Regular 100 unit 50.558 67.705 32.033 In Sodium Chloride 0.9% 100 ml @ Titrate IV .Q0M [facility] Rx#:[id number] Other: Voiding Method Toilet Toilet Toilet # Voids 1 - Exam Gen.: Patient is retired 3, no acute distress, overweight Cardiovascular: Regular rate and rhythm, S1/S2 Lungs: Coarse breath sounds bilaterally with expiratory wheezing Abdomen: Soft nontender nondistended positive bowel sounds Extremities: No edema - Labs CBC & Chem 7: 05/06/16 15:31 05/09/16 07:14 Labs: Abnormal Lab Results - Last 24 Hours (Table) 05/09/16 05/09/16 05/09/16 Range/Units 17:00 19:12 21:00 POC Glucose (mg/dL) 277 H 309 H 330 H (75-99) mg/dL 05/09/16 05/10/16 05/10/16 Range/Units 22:52 01:13 03:00 POC Glucose (mg/dL) 279 H 186 H 159 H (75-99) mg/dL 05/10/16 05/10/16 05/10/16 Range/Units 05:01 07:15 09:11 POC Glucose (mg/dL) 162 H 190 H 251 H (75-99) mg/dL 05/10/16 05/10/16 05/10/16 Range/Units 11:29 13:31 15:13 POC Glucose (mg/dL) 247 H 211 H 232 H (75-99) mg/dL Assessment and Plan Plan: Acute exacerbation of COPD Hypertension Present on admission shortness of breath due to an acute exacerbation of COPD Hyperglycemic episodes suspect due to IV steroids Hyperlipidemia Anxiety disorder nonspecified suspect worse with IV Solu-Medrol Shortness of breath suspect unspecified bronchial asthma triggered by exposure to secondhand smoke Plan Continue with recommendations by pulmonology service defer to Continue IV Solu-Medrol per pulmonology's recommendations DVT and GI prophylaxis Resume home meds as appropriate Blood sugar control
[2016-05-10] MEDS: LEVOFLOXACIN 250 MG TAB PO SCH (17:02)
[2016-05-10 19:14] LABS: Glucose,Whole Blood 285 mg/dL (75-99)
[2016-05-10 21:03] LABS: Glucose,Whole Blood 359 mg/dL (75-99)
[2016-05-10] MEDS: MONTELUKAST 10 MG TAB PO SCH (21:14)
[2016-05-10 23:08] LABS: Glucose,Whole Blood 213 mg/dL (75-99)
[2016-05-11] MEDS: methylPREDNISolone SOD SUCCI 125 MG/2 ML VIAL IV SCH ×5 (00:09→23:37)
[2016-05-11] MEDS: HEPARIN SODIUM,PORCINE 5,000 UNIT/ML 1 ML VIAL SQ SCH ×4 (00:09→23:37)
[2016-05-11] MEDS: guaiFENesin-DM 100-10MG/5ML 10 ML CUP PO SCH ×5 (00:09→23:37)
[2016-05-11 01:06] LABS: Glucose,Whole Blood 162 mg/dL (75-99)
[2016-05-11 03:08] LABS: Glucose,Whole Blood 143 mg/dL (75-99)
[2016-05-11 05:03] LABS: Glucose,Whole Blood 184 mg/dL (75-99)
[2016-05-11] MEDS: BUDESONIDE 0.5 MG/2 ML NEBU INHALATION SCH ×2 (07:49→20:34)
[2016-05-11] MEDS: FORMOTEROL FUMARATE 20 MCG/2 ML NEBU INHALATION SCH ×2 (07:49→20:34)
[2016-05-11] MEDS: IPRATROPIUM-ALBUTEROL 3 ML NEB INHALATION SCH ×4 (07:50→20:34)
[2016-05-11 08:03] LABS: Glucose,Whole Blood 172 mg/dL (75-99)
[2016-05-11] MEDS: INSULIN LISPRO (humaLOG) 300 UNIT/3 ML VIAL SQ SCH ×3 (08:14→17:41)
[2016-05-11] MEDS: ATORVASTATIN 40 MG TAB PO SCH ×2 (08:15→08:20)
[2016-05-11] MEDS: amLODIPine 5 MG TAB PO SCH (08:15)
[2016-05-11] MEDS: FAMOTIDINE 20 MG TAB PO SCH (08:15)
[2016-05-11] MEDS: VALSARTAN 160 MG TAB PO SCH (08:15)
[2016-05-11 09:14] LABS: Glucose,Whole Blood 186 mg/dL (75-99)
[2016-05-11 11:21] LABS: Glucose,Whole Blood 159 mg/dL (75-99)
[2016-05-11 13:22] LABS: Glucose,Whole Blood 147 mg/dL (75-99)
--- NOTE | 2016-05-11 13:34 | P.PN ---
Subjective 76-year-old female being seen on rounds this morning currently is sitting up in bed. Continues to report having shortness of breath with any exertion. Patient states the symptoms are the same. Patient states she is audibly wheezing. Patient currently is on an insulin drip per protocol for hyperglycemic episodes suspect due to IV Solu-Medrol being used. Patient states she's still not ready to go home. Patients being followed by pulmonology service Objective - Vital Signs Vital signs: Vital Signs Temp 98.1 F 05/11/16 07:00 Pulse 88 05/11/16 08:08 Resp 16 05/11/16 07:00 BP 142/73 05/11/16 07:00 Pulse Ox 100 05/11/16 07:00 Intake & Output 05/10/16 05/11/16 05/11/16 18:59 06:59 18:59 Intake Total 109.103 895.763 13.325 Balance 109.103 895.763 13.325 Intake: IV 70 130 Sodium Chloride 0.9% 1, 70 130 000 ml @ 10 mls/hr IV . Q24H [facility] Rx#:[id number] Intake, IV Titration 39.103 125.763 13.325 Amount Insulin Regular 100 unit 39.103 65.763 13.325 In Sodium Chloride 0.9% 100 ml @ Titrate IV .Q0M [facility] Rx#:[id number] Sodium Chloride 0.9% 1, 60 000 ml @ 10 mls/hr IV . Q24H [facility] Rx#:[id number] Oral 640 Other: Voiding Method Toilet Toilet Toilet # Voids 2 - Exam Physical exam Alert and oriented 3 sitting up in bed talkative appears in no acute distress Lungs forced bilateral prolonged expiratory wheezing noted coarse rhonchi no cough noted no use of accessory muscles to breathe Heart S1 and S2 audible and regular Abdomen soft nontender reports no nausea vomiting Extremities no edema noted - Labs CBC & Chem 7: 05/06/16 15:31 05/09/16 07:14 Labs: Abnormal Lab Results - Last 24 Hours (Table) 05/10/16 05/10/16 05/10/16 Range/Units 13:31 15:13 16:57 POC Glucose (mg/dL) 211 H 232 H 288 H (75-99) mg/dL 05/10/16 05/10/16 05/10/16 Range/Units 19:11 21:01 23:06 POC Glucose (mg/dL) 285 H 359 H 213 H (75-99) mg/dL 05/11/16 05/11/16 05/11/16 Range/Units 01:02 03:05 05:02 POC Glucose (mg/dL) 162 H 143 H 184 H (75-99) mg/dL 05/11/16 05/11/16 05/11/16 Range/Units 07:51 09:06 11:20 POC Glucose (mg/dL) 172 H 186 H 159 H (75-99) mg/dL 05/11/16 Range/Units 13:19 POC Glucose (mg/dL) 147 H (75-99) mg/dL Assessment and Plan Plan: Impression Hypertension Present on admission shortness of breath due to an acute exacerbation of COPD Hyperglycemic episodes suspect due to IV steroids Hyperlipidemia Present on admission shortness of breath suspect due to an exacerbation COPD Anxiety disorder nonspecified suspect worse with IV Solu-Medrol Shortness of breath suspect unspecified bronchial asthma triggered by exposure to secondhand smoke Plan The timing of the discharge defer to pulmonology service Continue with recommendations by pulmonology service defer to Continue IV Solu-Medrol per pulmonology's recommendations DVT and GI prophylaxis Resume home meds as appropriate Further recommendations pending will follow The above dictated assessment and findings were discussed with dr summers covering for dr altamirano Impression and the plan of care have been dictated as directed. Tata Welch nurse practitioner acting as a scribe for dr summers covering for dr altamirano
[2016-05-11] MEDS: SODIUM CHLORIDE 0.9% 1,000 ML IV SCH (15:19)
[2016-05-11 15:21] LABS: Glucose,Whole Blood 114 mg/dL (75-99)
--- NOTE | 2016-05-11 15:34 | P.PN ---
Subjective Principal diagnosis: Acute exacerbation of COPD 76-year-old female patient an ex-smoker, coming in for increased shortness of breath. The patient started expressing shortness of breath approximately 3-4 days ago and her breathing progressively got worse to include symptoms of cough congestion wheezing along with dyspnea. No chest pain. No pleurisy. It is a phone acute COPD exacerbation was approximately 6 months ago. She follows up with Dr. Valdivia. Apparently, during this current episode, the patient had taken outpatient antibiotics and steroids and nebulized albuterol treatment without much of an help and for that reason she decided to come into the hospital for further treatment. At this point in time, the patient is on bronchodilators and systemic steroids. Clinically improved. She has still some hyperglycemia and for that reason she was placed on insulin drip at 2 units an hour for tighter blood sugar control. On 05/10/2016, the patient is being seen in follow-up. She remains bronchus spastic and wheezy and there is been limited improvement in her acute COPD exacerbation with a past 24-48 hours. He is on this, I opted to put the patient a combination of Perforomist and Pulmicort neb last treatment twice a day, albuterol and Atrovent about treatments 4 times a day, IV Solu-Medrol. The patient remains on 40 units of insulin for blood sugar control. Chest x- ray remains free of any pulmonary infiltrates or pneumonia. On 05/11/2016, patient continues to have cough wheezing shortness of breath, and on physical examination continues to have significant wheezing, patient is back on Solu-Medrol, and she is not quite ready for discharge planning at this point. Objective - Vital Signs Vital signs: Vital Signs Temp 98.1 F 05/11/16 07:00 Pulse 88 05/11/16 08:08 Resp 16 05/11/16 07:00 BP 142/73 05/11/16 07:00 Pulse Ox 100 05/11/16 07:00 Intake & Output 05/10/16 05/11/16 05/11/16 18:59 06:59 18:59 Intake Total 109.103 895.763 20.108 Balance 109.103 895.763 20.108 Intake: IV 70 130 Sodium Chloride 0.9% 1, 70 130 000 ml @ 10 mls/hr IV . Q24H [facility] Rx#:[id number] Intake, IV Titration 39.103 125.763 20.108 Amount Insulin Regular 100 unit 39.103 65.763 20.108 In Sodium Chloride 0.9% 100 ml @ Titrate IV .Q0M [facility] Rx#:[id number] Sodium Chloride 0.9% 1, 60 000 ml @ 10 mls/hr IV . Q24H [facility] Rx#:[id number] Oral 640 Other: Voiding Method Toilet Toilet Toilet # Voids 2 - Exam Head exam was generally normal. There was no scleral icterus or corneal arcus. Mucous membranes were moist.Neck was supple and without jugular venous distension, thyromegaly, or carotid bruits. Carotids were easily palpable bilaterally. There was no adenopathy. Lung sounds are diminished bilaterally along with diffuse expiratory wheezes throughout the lung grimes.Cardiac exam revealed the PMI to be normally situated and sized. The rhythm was regular and no extrasystoles were noted during several minutes of auscultation. The first and second heart sounds were normal and physiologic splitting of the second heart sound was noted. There were no murmurs, rubs, clicks, or gallops.Abdominal exam revealed normal bowel sounds. The abdomen was soft, non- tender, and without masses, organomegaly, or appreciable enlargement of the abdominal aorta.Examination of the extremities revealed easily palpable radial, femoral and pedal pulses. There was no cyanosis, clubbing or edema. - Labs CBC & Chem 7: 05/06/16 15:31 05/09/16 07:14 Labs: Abnormal Lab Results - Last 24 Hours (Table) 05/10/16 05/10/16 05/10/16 Range/Units 16:57 19:11 21:01 POC Glucose (mg/dL) 288 H 285 H 359 H (75-99) mg/dL 05/10/16 05/11/16 05/11/16 Range/Units 23:06 01:02 03:05 POC Glucose (mg/dL) 213 H 162 H 143 H (75-99) mg/dL 05/11/16 05/11/16 05/11/16 Range/Units 05:02 07:51 09:06 POC Glucose (mg/dL) 184 H 172 H 186 H (75-99) mg/dL 05/11/16 05/11/16 05/11/16 Range/Units 11:20 13:19 15:13 POC Glucose (mg/dL) 159 H 147 H 114 H (75-99) mg/dL Assessment and Plan Plan: 1 acute COPD exacerbation On 05/10/2016, the patient has showed limited improvement in her COPD exacerbation. She still quite bronchospastic and wheezy and short of breath. Chest x-ray remains clear. Rule out acute viral bronchitis with secondary to COPD exacerbation. On 05/11/2016, continues to have symptoms of acute exacerbation of COPD, not quite ready for any discharge planning. 2 shortness of breath secondary to above, recovering 3 chronic renal insufficiency, currently stable 4 diabetes mellitus currently on insulin drip for blood sugar control due to steroid-induced hyperglycemia 5 hypertension 6 hyperlipidemia Plan Into same treatment. Reevaluate this patient in a.m. Solu-Medrol be kept at a high dose. Continue the insulin drip for blood sugar control. Anticipate improvement with the next 24-48 hours. Time with Patient: Less than 30
[2016-05-11 16:32] LABS: Glucose,Whole Blood 114 mg/dL (75-99)
[2016-05-11 17:10] LABS: Glucose,Whole Blood 121 mg/dL (75-99)
[2016-05-11] MEDS: LEVOFLOXACIN 250 MG TAB PO SCH (17:39)
[2016-05-11 18:30] LABS: Glucose,Whole Blood 171 mg/dL (75-99)
[2016-05-11 21:07] LABS: Glucose,Whole Blood 162 mg/dL (75-99)
[2016-05-11] MEDS: INSULIN REGULAR 100 UNIT in SODIUM CHLORIDE 0.9% 100 ML IV SCH (21:48)
[2016-05-11] MEDS: MONTELUKAST 10 MG TAB PO SCH (21:49)
[2016-05-11 23:17] LABS: Glucose,Whole Blood 217 mg/dL (75-99)
[2016-05-12 01:14] LABS: Glucose,Whole Blood 210 mg/dL (75-99)
[2016-05-12 03:17] LABS: Glucose,Whole Blood 213 mg/dL (75-99)
[2016-05-12 05:17] LABS: Glucose,Whole Blood 213 mg/dL (75-99)
[2016-05-12] MEDS: methylPREDNISolone SOD SUCCI 125 MG/2 ML VIAL IV SCH (05:32)
[2016-05-12] MEDS: guaiFENesin-DM 100-10MG/5ML 10 ML CUP PO SCH ×3 (05:34→17:49)
[2016-05-12] MEDS: IPRATROPIUM-ALBUTEROL 3 ML NEB INHALATION SCH ×4 (07:07→19:00)
[2016-05-12] MEDS: BUDESONIDE 0.5 MG/2 ML NEBU INHALATION SCH ×2 (07:07→18:59)
[2016-05-12] MEDS: FORMOTEROL FUMARATE 20 MCG/2 ML NEBU INHALATION SCH ×2 (07:08→19:00)
[2016-05-12 07:40] LABS: Glucose,Whole Blood 195 mg/dL (75-99)
[2016-05-12] MEDS: INSULIN LISPRO (humaLOG) 300 UNIT/3 ML VIAL SQ SCH ×3 (08:17→17:49)
[2016-05-12] MEDS: amLODIPine 5 MG TAB PO SCH (08:17)
[2016-05-12] MEDS: HEPARIN SODIUM,PORCINE 5,000 UNIT/ML 1 ML VIAL SQ SCH ×2 (08:17→15:52)
[2016-05-12] MEDS: ATORVASTATIN 40 MG TAB PO SCH (08:18)
[2016-05-12] MEDS: FAMOTIDINE 20 MG TAB PO SCH (08:18)
[2016-05-12] MEDS: VALSARTAN 160 MG TAB PO SCH (08:18)
[2016-05-12 09:18] LABS: Glucose,Whole Blood 233 mg/dL (75-99)
--- NOTE | 2016-05-12 11:04 | P.PN ---
Subjective 76-year-old female sitting up in bed. Patient continues to report having shortness of breath with exertion. Patient states her breathing feels slightly improved but "still feeling short of breath not ready to go home. Patients being followed by pulmonology for management of acute exacerbation of COPD. Currently patient continues on Solu-Medrol per recommendations of pulmonology. Hyperglycemic episodes persist patient's on protocol to address the hyperglycemic episodes. Objective - Vital Signs Vital signs: Vital Signs Temp 97.6 F 05/12/16 07:00 Pulse 94 05/12/16 10:50 Resp 16 05/12/16 08:00 BP 172/81 05/12/16 07:00 Pulse Ox 95 05/12/16 07:00 Intake & Output 05/11/16 05/12/16 05/12/16 18:59 06:59 18:59 Intake Total 100.108 218.344 12.799 Balance 100.108 218.344 12.799 Intake: IV 80 Sodium Chloride 0.9% 1, 80 000 ml @ 10 mls/hr IV . Q24H [facility] Rx#:[id number] Intake, IV Titration 20.108 18.344 12.799 Amount Insulin Regular 100 unit 20.108 18.344 12.799 In Sodium Chloride 0.9% 100 ml @ Titrate IV .Q0M [facility] Rx#:[id number] Oral 200 Other: Voiding Method Toilet Toilet # Voids 1 - Exam Physical exam 76 -year-old female sitting up in bed does not appear in any acute distress watching television talkative Lungs bilateral forced prolonged expiratory wheezing noted no cough noted on room air Heart S1-S2 audible and regular no murmur noted denying chest pain Abdomen soft nontender no reports frequent stooling no nausea vomiting Extremities no edema noted - Labs CBC & Chem 7: 05/06/16 15:31 05/09/16 07:14 Labs: Abnormal Lab Results - Last 24 Hours (Table) 05/11/16 05/11/16 05/11/16 Range/Units 11:20 13:19 15:13 POC Glucose (mg/dL) 159 H 147 H 114 H (75-99) mg/dL 05/11/16 05/11/16 05/11/16 Range/Units 16:28 17:00 18:28 POC Glucose (mg/dL) 114 H 121 H 171 H (75-99) mg/dL 05/11/16 05/11/16 05/12/16 Range/Units 21:06 23:14 01:12 POC Glucose (mg/dL) 162 H 217 H 210 H (75-99) mg/dL 05/12/16 05/12/16 05/12/16 Range/Units 03:13 05:15 07:10 POC Glucose (mg/dL) 213 H 213 H 195 H (75-99) mg/dL 05/12/16 Range/Units 09:06 POC Glucose (mg/dL) 233 H (75-99) mg/dL Assessment and Plan Plan: Impression Hypertension Present on admission shortness of breath due to an acute exacerbation of COPD Hyperglycemic episodes suspect due to IV steroids Hyperlipidemia Present on admission shortness of breath suspect due to an exacerbation COPD Anxiety disorder nonspecified suspect worse with IV Solu-Medrol Shortness of breath suspect unspecified bronchial asthma triggered by exposure to secondhand smoke Plan Increase Humalog to 12 units before meals and monitor the response The timing of the discharge defer to pulmonology service Continue with recommendations by pulmonology service defer to Continue IV Solu-Medrol per pulmonology's recommendations DVT and GI prophylaxis Resume home meds as appropriate Further recommendations pending will follow The above dictated assessment and findings were discussed with dr summers covering for dr altamirano Impression and the plan of care have been dictated as directed. Tata Welch nurse practitioner acting as a scribe for dr summers covering for dr altamirano
[2016-05-12 11:07] LABS: Glucose,Whole Blood 183 mg/dL (75-99)
--- NOTE | 2016-05-12 11:54 | P.PN ---
Subjective This is a very pleasant 76-year-old female patient who follows with Dr. Alexander Sarkar as her primary care physician. She also follows with Dr. Valdivia in our office for chronic obstructive pulmonary disease. She presented here with complaints of increasing shortness of breath cough and congestion. She is treated for COPD exacerbation. She is seen again today 05/12/2016 in follow- up. She is awake and alert in no acute distress. She is doing better today as compared to yesterday. She is still dyspneic on minimal exertion. She still has a faint end expiratory wheeze but definitely with improved aeration. She remains afebrile. She is maintaining good O2 saturations in the mid 90s on room air. Objective - Vital Signs Vital signs: Vital Signs Temp 97.6 F 05/12/16 07:00 Pulse 94 05/12/16 10:50 Resp 16 05/12/16 08:00 BP 172/81 05/12/16 07:00 Pulse Ox 95 05/12/16 07:00 Intake & Output 05/11/16 05/12/16 05/12/16 18:59 06:59 18:59 Intake Total 100.108 218.344 19.332 Balance 100.108 218.344 19.332 Intake: IV 80 Sodium Chloride 0.9% 1, 80 000 ml @ 10 mls/hr IV . Q24H DORI Rx#:[id number] Intake, IV Titration 20.108 18.344 19.332 Amount Insulin Regular 100 unit 20.108 18.344 19.332 In Sodium Chloride 0.9% 100 ml @ Titrate IV .Q0M DORI Rx#:[id number] Oral 200 Other: Voiding Method Toilet Toilet # Voids 1 - Exam GENERAL EXAM: Alert, comfortable in no apparent distress. HEAD: Normocephalic. EYES: Normal reaction of pupils, equal size. NOSE: Clear with pink turbinates. THROAT: No erythema or exudates. NECK: No masses, no JVD. CHEST: No chest wall deformity. LUNGS: Equal air entry with bilateral wheeze. CVS: S1 and S2 normal with no audible murmurs, regular rhythm. ABDOMEN: No hepatosplenomegaly, normal bowel sounds, no guarding or rigidity. SPINE: No scoliosis or deformity SKIN: No rashes CENTRAL NERVOUS SYSTEM: No focal deficits, tone is normal in all 4 extremities. Extremities: There is no significant peripheral edema. No clubbing, no cyanosis. Peripheral pulses are intact. - Labs CBC & Chem 7: 05/06/16 15:31 05/09/16 07:14 Labs: Abnormal Lab Results - Last 24 Hours (Table) 05/11/16 05/11/16 05/11/16 Range/Units 13:19 15:13 16:28 POC Glucose (mg/dL) 147 H 114 H 114 H (75-99) mg/dL 05/11/16 05/11/16 05/11/16 Range/Units 17:00 18:28 21:06 POC Glucose (mg/dL) 121 H 171 H 162 H (75-99) mg/dL 05/11/16 05/12/16 05/12/16 Range/Units 23:14 01:12 03:13 POC Glucose (mg/dL) 217 H 210 H 213 H (75-99) mg/dL 05/12/16 05/12/16 05/12/16 Range/Units 05:15 07:10 09:06 POC Glucose (mg/dL) 213 H 195 H 233 H (75-99) mg/dL 05/12/16 Range/Units 11:05 POC Glucose (mg/dL) 183 H (75-99) mg/dL Assessment and Plan Plan: Impression: #1 Acute exacerbation of chronic obstructive pulmonary disease. Chest x-ray revealed no acute cardiopulmonary process. There is evidence of cardiomegaly and diffuse interstitial prominence secondary to suspected bronchitis/chronic asthma. #2 Dyspnea secondary to above. #3 Chronic renal insufficiency, currently stable. #4 Diabetes mellitus with steroid-induced hyperglycemia maintained on insulin drip currently at 3.5 units per hour. #5 Hypertension. #6 Hyperlipidemia. Plan: The patient was seen and evaluated by Dr. Valdivia. She continues with a dry nonproductive cough and mild wheezing. Chest x-ray reveals no acute pulmonary process. We'll continue with her current pulmonary medications including DuoNeb inhalations 4 times a day and when necessary, empiric antibiotics in the form of Levaquin. We'll add Pulmicort and Perforomist inhalations twice a day. We'll also add Robitussin-DM every 6 hours. We'll start to titrate down her IV Solu-Medrol to 40 mg every 8 hours. We will increase her activity as tolerated. We'll continue to follow and make further recommendations based on her clinical status.
[2016-05-12 13:23] LABS: Glucose,Whole Blood 219 mg/dL (75-99)
[2016-05-12] MEDS: SODIUM CHLORIDE 0.9% 1,000 ML IV SCH (15:50)
[2016-05-12] MEDS: methylPREDNISolone SOD SUCCI 40 MG/ML 1 ML VIAL IV SCH (15:54)
[2016-05-12 15:57] LABS: Glucose,Whole Blood 145 mg/dL (75-99)
[2016-05-12] MEDS: LEVOFLOXACIN 250 MG TAB PO SCH (17:49)
[2016-05-12 17:52] LABS: Glucose,Whole Blood 140 mg/dL (75-99)
[2016-05-12 19:17] LABS: Glucose,Whole Blood 129 mg/dL (75-99)
[2016-05-12 20:10] LABS: Glucose,Whole Blood 111 mg/dL (75-99)
[2016-05-12] MEDS: MONTELUKAST 10 MG TAB PO SCH (20:15)
[2016-05-12 21:23] LABS: Glucose,Whole Blood 134 mg/dL (75-99)
[2016-05-12 22:10] LABS: Glucose,Whole Blood 177 mg/dL (75-99)
[2016-05-13 00:11] LABS: Glucose,Whole Blood 225 mg/dL (75-99)
[2016-05-13] MEDS: guaiFENesin-DM 100-10MG/5ML 10 ML CUP PO SCH ×5 (00:22→23:31)
[2016-05-13] MEDS: HEPARIN SODIUM,PORCINE 5,000 UNIT/ML 1 ML VIAL SQ SCH ×4 (00:22→23:31)
[2016-05-13] MEDS: methylPREDNISolone SOD SUCCI 40 MG/ML 1 ML VIAL IV SCH ×2 (00:23→07:50)
[2016-05-13 01:14] LABS: Glucose,Whole Blood 222 mg/dL (75-99)
[2016-05-13 03:12] LABS: Glucose,Whole Blood 219 mg/dL (75-99)
[2016-05-13 05:02] LABS: Glucose,Whole Blood 220 mg/dL (75-99)
[2016-05-13] MEDS: FORMOTEROL FUMARATE 20 MCG/2 ML NEBU INHALATION SCH ×2 (07:31→19:22)
[2016-05-13] MEDS: BUDESONIDE 0.5 MG/2 ML NEBU INHALATION SCH ×2 (07:32→19:22)
[2016-05-13] MEDS: IPRATROPIUM-ALBUTEROL 3 ML NEB INHALATION SCH ×4 (07:32→19:22)
[2016-05-13 07:46] LABS: Glucose,Whole Blood 213 mg/dL (75-99)
[2016-05-13] MEDS: VALSARTAN 160 MG TAB PO SCH (07:51)
[2016-05-13] MEDS: ATORVASTATIN 40 MG TAB PO SCH (07:51)
[2016-05-13] MEDS: amLODIPine 5 MG TAB PO SCH (07:51)
[2016-05-13] MEDS: FAMOTIDINE 20 MG TAB PO SCH (07:51)
[2016-05-13] MEDS: INSULIN LISPRO (humaLOG) 300 UNIT/3 ML VIAL SQ SCH ×3 (07:52→17:49)
[2016-05-13 09:42] LABS: Glucose,Whole Blood 196 mg/dL (75-99)
--- NOTE | 2016-05-13 10:54 | P.PN ---
Subjective This is a very pleasant 76-year-old female patient who follows with Dr. Alexander Sarkar as her primary care physician. She also follows with Dr. Valdivia in our office for chronic obstructive pulmonary disease. She presented here with complaints of increasing shortness of breath cough and congestion. She is treated for COPD exacerbation. She is seen again today 05/13/2016 in follow- up. She is awake and alert in no acute distress. She is doing better today as compared to yesterday. She is still dyspneic on minimal exertion. She still has a faint end expiratory wheeze but definitely with improved aeration. She remains afebrile. She is maintaining good O2 saturations in the mid 90s on room air. She continues with some element of anxiety. She is to be up in the shower today and out in the hallway. The plan is for discharge in the a.m. Objective - Vital Signs Vital signs: Vital Signs Temp 96.8 F L 05/13/16 07:00 Pulse 92 05/13/16 08:00 Resp 18 05/13/16 07:00 BP 159/89 05/13/16 07:00 Pulse Ox 98 05/13/16 07:00 Intake & Output 05/12/16 05/13/16 05/13/16 18:59 06:59 18:59 Intake Total 113.173 365.200 248.766 Balance 113.173 365.200 248.766 Intake: IV 80 110 Sodium Chloride 0.9% 1, 80 110 000 ml @ 10 mls/hr IV . Q24H DORI Rx#:[id number] Intake, IV Titration 33.173 15.200 8.766 Amount Insulin Regular 100 unit 33.173 15.200 8.766 In Sodium Chloride 0.9% 100 ml @ Titrate IV .Q0M DORI Rx#:[id number] Oral 240 240 Other: Voiding Method Toilet Toilet # Voids 2 # Bowel Movements 1 - Exam GENERAL EXAM: Alert, comfortable in no apparent distress. HEAD: Normocephalic. EYES: Normal reaction of pupils, equal size. NOSE: Clear with pink turbinates. THROAT: No erythema or exudates. NECK: No masses, no JVD. CHEST: No chest wall deformity. LUNGS: Equal air entry with bilateral wheeze. CVS: S1 and S2 normal with no audible murmurs, regular rhythm. ABDOMEN: No hepatosplenomegaly, normal bowel sounds, no guarding or rigidity. SPINE: No scoliosis or deformity SKIN: No rashes CENTRAL NERVOUS SYSTEM: No focal deficits, tone is normal in all 4 extremities. Extremities: There is no significant peripheral edema. No clubbing, no cyanosis. Peripheral pulses are intact. - Labs CBC & Chem 7: 05/06/16 15:31 05/09/16 07:14 Labs: Abnormal Lab Results - Last 24 Hours (Table) 05/12/16 05/12/16 05/12/16 Range/Units 11:05 13:03 15:45 POC Glucose (mg/dL) 183 H 219 H 145 H (75-99) mg/dL 05/12/16 05/12/16 05/12/16 Range/Units 17:06 19:04 20:09 POC Glucose (mg/dL) 140 H 129 H 111 H (75-99) mg/dL 05/12/16 05/12/16 05/13/16 Range/Units 21:06 22:08 00:00 POC Glucose (mg/dL) 134 H 177 H 225 H (75-99) mg/dL 05/13/16 05/13/16 05/13/16 Range/Units 01:02 03:11 04:59 POC Glucose (mg/dL) 222 H 219 H 220 H (75-99) mg/dL 05/13/16 05/13/16 Range/Units 07:45 09:33 POC Glucose (mg/dL) 213 H 196 H (75-99) mg/dL Assessment and Plan Plan: Impression: #1 Acute exacerbation of chronic obstructive pulmonary disease. Chest x-ray revealed no acute cardiopulmonary process. There is evidence of cardiomegaly and diffuse interstitial prominence secondary to suspected bronchitis/chronic asthma. Slow to improve but better today as compared to yesterday. #2 Dyspnea secondary to above. #3 Chronic renal insufficiency, currently stable. #4 Diabetes mellitus with steroid-induced hyperglycemia maintained on insulin drip currently at 3.5 units per hour. #5 Hypertension. #6 Hyperlipidemia. Plan: The patient was seen and evaluated by Dr. Valdivia. She continues with a dry nonproductive cough and mild wheezing. Chest x-ray reveals no acute pulmonary process. We'll continue with her current pulmonary medications including DuoNeb inhalations 4 times a day and when necessary, empiric antibiotics in the form of Levaquin. We'll continue Pulmicort and Perforomist inhalations twice a day. We'll also continue Robitussin-DM every 6 hours. We'll continue to titrate down her IV Solu-Medrol to 40 mg every 12 hours. We will increase her activity as tolerated. She is encouraged to be up into the shower. Up in the hallway ambulating. The plan is for discharge home tomorrow. We'll continue to follow and make further recommendations based on her clinical status.
[2016-05-13 11:27] LABS: Glucose,Whole Blood 171 mg/dL (75-99)
--- NOTE | 2016-05-13 12:36 | P.PN ---
Subjective 76-year-old female being seen on rounds this morning sitting up in bed. Patient stating that "I feel very anxious about going home. I don't want to come back. Patient states steroids make her anxious. Patient states she feels like her breathing is better compared to yesterday. Patient is stating issues given 1 more day the steroids are stopped and switched to oral will Tiffany ready to go home tomorrow. Patient states she has been up ambulating in the esquivel. Patient appears anxious. Pulmonology at the bedside. They agree that the patient could be discharged within the next 24 hours we'll stop the IV Solu- Medrol and start oral prednisone. The plan of care was discussed with the patient receptive to the plan questions answered Objective - Vital Signs Vital signs: Vital Signs Temp 96.8 F L 05/13/16 07:00 Pulse 88 05/13/16 12:21 Resp 18 05/13/16 07:00 BP 159/89 05/13/16 07:00 Pulse Ox 98 05/13/16 07:00 Intake & Output 05/12/16 05/13/16 05/13/16 18:59 06:59 18:59 Intake Total 113.173 365.200 252.591 Balance 113.173 365.200 252.591 Intake: IV 80 110 Sodium Chloride 0.9% 1, 80 110 000 ml @ 10 mls/hr IV . Q24H [facility]ORI Rx#:[id number] Intake, IV Titration 33.173 15.200 12.591 Amount Insulin Regular 100 unit 33.173 15.200 12.591 In Sodium Chloride 0.9% 100 ml @ Titrate IV .Q0M DORI Rx#:[id number] Oral 240 240 Other: Voiding Method Toilet Toilet # Voids 2 # Bowel Movements 1 - Exam Physical exam 76 year old female sitting up on the edge of the bed appears comfortable talkative oriented 3 Lungs bilateral forced faint expiratory wheezing noted no use of accessory muscles to breathe no cough noted currently on room air sats greater than 95% Heart S1-S2 audible and regular denying chest pain Abdomen soft nontender reports no nausea vomiting Extremities no edema noted - Labs CBC & Chem 7: 05/06/16 15:31 05/09/16 07:14 Labs: Abnormal Lab Results - Last 24 Hours (Table) 05/12/16 05/12/16 05/12/16 Range/Units 13:03 15:45 17:06 POC Glucose (mg/dL) 219 H 145 H 140 H (75-99) mg/dL 05/12/16 05/12/16 05/12/16 Range/Units 19:04 20:09 21:06 POC Glucose (mg/dL) 129 H 111 H 134 H (75-99) mg/dL 05/12/16 05/13/16 05/13/16 Range/Units 22:08 00:00 01:02 POC Glucose (mg/dL) 177 H 225 H 222 H (75-99) mg/dL 05/13/16 05/13/16 05/13/16 Range/Units 03:11 04:59 07:45 POC Glucose (mg/dL) 219 H 220 H 213 H (75-99) mg/dL 05/13/16 05/13/16 Range/Units 09:33 11:22 POC Glucose (mg/dL) 196 H 171 H (75-99) mg/dL Assessment and Plan Plan: Impression Hypertension Present on admission shortness of breath due to an acute exacerbation of COPD Hyperglycemic episodes suspect due to IV steroids Hyperlipidemia Present on admission shortness of breath suspect due to an exacerbation COPD Anxiety disorder nonspecified suspect worse with IV Solu-Medrol Shortness of breath suspect unspecified bronchial asthma triggered by exposure to secondhand smoke Plan Increase Humalog to 12 units before meals and monitor the response The timing of the discharge defer to pulmonology service Prepped for discharge in the next 24 hours Solu-Medrol 40 IV every 12 DVT and GI prophylaxis Resume home meds as appropriate Further recommendations pending will follow The above dictated assessment and findings were discussed with dr summers covering for dr altamirano Impression and the plan of care have been dictated as directed. Tata Welch nurse practitioner acting as a scribe for dr summers covering for dr altamirano
[2016-05-13 13:15] LABS: Glucose,Whole Blood 247 mg/dL (75-99)
[2016-05-13 14:28] VITALS: BMI 29.2
[2016-05-13 16:04] LABS: Glucose,Whole Blood 169 mg/dL (75-99)
[2016-05-13] MEDS: SODIUM CHLORIDE 0.9% 1,000 ML IV SCH (16:34)
[2016-05-13] MEDS: predniSONE 10 MG TAB PO SCH (16:34)
[2016-05-13 17:05] LABS: Glucose,Whole Blood 186 mg/dL (75-99)
[2016-05-13] MEDS: LEVOFLOXACIN 250 MG TAB PO SCH (17:49)
[2016-05-13 19:41] LABS: Glucose,Whole Blood 113 mg/dL (75-99)
[2016-05-13] MEDS: MONTELUKAST 10 MG TAB PO SCH (20:31)
[2016-05-13] MEDS ORDERED: methylPREDNISolone SOD SUCCI 40 MG/ML 1 ML VIAL IV SCH (21:00)
[2016-05-13 21:24] LABS: Glucose,Whole Blood 136 mg/dL (75-99)
[2016-05-13 22:26] VITALS: RESP 18
[2016-05-13 22:43] LABS: Glucose,Whole Blood 189 mg/dL (75-99)
[2016-05-14 00:01] LABS: Glucose,Whole Blood 175 mg/dL (75-99)
[2016-05-14 02:04] LABS: Glucose,Whole Blood 199 mg/dL (75-99)
[2016-05-14] MEDS: INSULIN REGULAR 100 UNIT in SODIUM CHLORIDE 0.9% 100 ML IV SCH (03:05)
[2016-05-14 04:16] LABS: Glucose,Whole Blood 201 mg/dL (75-99)
[2016-05-14] MEDS: guaiFENesin-DM 100-10MG/5ML 10 ML CUP PO SCH ×2 (06:07→13:09)
[2016-05-14 06:16] LABS: Glucose,Whole Blood 185 mg/dL (75-99)
[2016-05-14 07:47] LABS: Glucose,Whole Blood 201 mg/dL (75-99)
[2016-05-14] MEDS: amLODIPine 5 MG TAB PO SCH (07:52)
[2016-05-14] MEDS: VALSARTAN 160 MG TAB PO SCH (07:52)
[2016-05-14] MEDS: FAMOTIDINE 20 MG TAB PO SCH (07:52)
[2016-05-14] MEDS: predniSONE 10 MG TAB PO SCH (07:53)
[2016-05-14] MEDS: HEPARIN SODIUM,PORCINE 5,000 UNIT/ML 1 ML VIAL SQ SCH (07:53)
[2016-05-14] MEDS: ATORVASTATIN 40 MG TAB PO SCH (07:53)
[2016-05-14] MEDS: INSULIN LISPRO (humaLOG) 300 UNIT/3 ML VIAL SQ SCH ×2 (08:30→13:09)
[2016-05-14] MEDS: BUDESONIDE 0.5 MG/2 ML NEBU INHALATION SCH (08:36)
[2016-05-14] MEDS: IPRATROPIUM-ALBUTEROL 3 ML NEB INHALATION SCH ×2 (08:36→12:33)
[2016-05-14] MEDS: FORMOTEROL FUMARATE 20 MCG/2 ML NEBU INHALATION SCH (08:37)
[2016-05-14 09:59] LABS: Glucose,Whole Blood 140 mg/dL (75-99)
[2016-05-14 11:52] LABS: Glucose,Whole Blood 123 mg/dL (75-99)
--- NOTE | 2016-05-14 12:11 | P.DS ---
Providers Date of admission: 05/06/16 11:00 Expected date of discharge: 05/14/16 Attending physician: Alexander Sarkar Consults: 05/06/16 13:29 Consult Physician Urgent Consulting Provider: Yulissa Valdivia Consult Reason/Comments: copd Do you want consulting provider notified?: Yes Primary care physician: [facility] Course: 76-year-old female patient an ex-smoker, coming in for increased shortness of breath. The patient started expressing shortness of breath approximately 3-4 days ago and her breathing progressively got worse to include symptoms of cough congestion wheezing along with dyspnea. Patient states she lives in the apartment complex and is exposed to secondhand smo No chest pain. No pleurisy. Treated for acute COPD exacerbation last admission was approximately 6 months ago. She follows up with Dr. Valdivia. Apparently, during this current episode, the patient had taken outpatient antibiotics and steroids and nebulized albuterol treatment without much of an help and for that reason she decided to come into the hospital for further treatment. , the patient was started on bronchodilators and systemic steroids. A pulmonology consultation request Clinically improved. She has still some hyperglycemia and was started on an insulin drip per protocol. Chest x-rays remained free of any pneumonia. Over the course of the hospitalization patient's symptoms significantly improved. The insulin drip was able to be stopped and patient was started on oral steroids on the day of discharge was felt to be stable and appropriate to proceed Patient was discharged on 30 mg of prednisone daily in which pulmonology will address and taper in the outpatient setting and a follow-up visit Impression discharge diagnosed Present on admission acute COPD exacerbation Shortness of breath suspect unspecified bronchial moderate persistent asthma triggered by exposure to secondhand smoke . History of bronchospasms chronic renal insufficiency, currently stable diabetes mellitus currently on insulin drip for blood sugar control due to steroid-induced hyperglycemia hypertension hyperlipidemia Hyperglycemic episodes likely due to IV steroids Anxiety disorder nonspecified worse on steroids The above dictated assessment and findings were discussed with dr juarez covering for Dr. Sarkar Impression and the plan of care have been dictated as directed. Tata Welch nurse practitioner acting as a scribe for dr juarez Plan - Discharge Summary New Discharge Prescriptions: Levofloxacin [Levaquin] 250 mg PO DAILY@1800 #5 tab Montelukast [Singulair] 10 mg PO HS #30 tab predniSONE 30 mg PO DAILY #60 tab Discharge Medication List amLODIPine/VALSARTAN [amLODIPine/VALSARTAN 5-320 mg] 1 tab PO DAILY 09/24/15 [ History] Atorvastatin [Lipitor] 40 mg PO DAILY 09/25/15 [History] Calcium Carbonate [Calcium] 600 mg PO DAILY 05/06/16 [History] Linagliptin/Metformin HCl [Jentadueto 2.5 mg-500 mg Tab] 1 tab PO BID 05/06/16 [ History] Repaglinide [Prandin] 4 mg PO AC-TID 05/06/16 [History] Formoterol Fumarate [Perforomist] 20 mcg INHALATION RT-BID nebu 05/14/16 [Rx] Levofloxacin [Levaquin] 250 mg PO DAILY@1800 #5 tab 05/14/16 [Rx] Montelukast [Singulair] 10 mg PO HS #30 tab 05/14/16 [Rx] predniSONE 30 mg PO DAILY #60 tab 05/14/16 [Rx] Follow up Appointment(s)/Referral(s): Alexander Sarkar MD [Primary Care Provider] - 1 Week Yulissa Valdivia MD [STAFF PHYSICIAN] - 1 Week Discharge Disposition: HOME SELF-CARE
[2016-05-14] MEDS: SODIUM CHLORIDE 0.9% 1,000 ML IV SCH (13:08)
--- NOTE | 2016-05-14 13:16 | P.PN ---
Subjective Principal diagnosis: Acute exacerbation of COPD 76-year-old female patient an ex-smoker, coming in for increased shortness of breath. The patient started expressing shortness of breath approximately 3-4 days ago and her breathing progressively got worse to include symptoms of cough congestion wheezing along with dyspnea. No chest pain. No pleurisy. It is a phone acute COPD exacerbation was approximately 6 months ago. She follows up with Dr. Valdivia. Apparently, during this current episode, the patient had taken outpatient antibiotics and steroids and nebulized albuterol treatment without much of an help and for that reason she decided to come into the hospital for further treatment. At this point in time, the patient is on bronchodilators and systemic steroids. Clinically improved. She has still some hyperglycemia and for that reason she was placed on insulin drip at 2 units an hour for tighter blood sugar control. On 05/10/2016, the patient is being seen in follow-up. She remains bronchus spastic and wheezy and there is been limited improvement in her acute COPD exacerbation with a past 24-48 hours. He is on this, I opted to put the patient a combination of Perforomist and Pulmicort neb last treatment twice a day, albuterol and Atrovent about treatments 4 times a day, IV Solu-Medrol. The patient remains on 40 units of insulin for blood sugar control. Chest x- ray remains free of any pulmonary infiltrates or pneumonia. On 05/11/2016, patient continues to have cough wheezing shortness of breath, and on physical examination continues to have significant wheezing, patient is back on Solu-Medrol, and she is not quite ready for discharge planning at this point. Reevaluated today on 05/14/2016, patient is doing quite well, and I have even clear the patient for discharge yesterday. Today the patient even sounds better , and I will clear her again for discharge today. Patient is walking down the hallway, no cough no wheezing no shortness of breath. Objective - Vital Signs Vital signs: Vital Signs Temp 97.8 F 05/14/16 07:00 Pulse 96 05/14/16 12:55 Resp 18 05/14/16 07:00 BP 165/89 05/14/16 07:00 Pulse Ox 94 L 05/14/16 07:00 Intake & Output 05/13/16 05/14/16 05/14/16 18:59 06:59 18:59 Intake Total 343.474 495.982 493.167 Balance 343.474 495.982 493.167 Weight 72.575 kg Intake: IV 80 Sodium Chloride 0.9% 1, 80 000 ml @ 10 mls/hr IV . Q24H DORI Rx#:[id number] Intake, IV Titration 23.474 15.982 13.167 Amount Insulin Regular 100 unit 23.474 15.982 13.167 In Sodium Chloride 0.9% 100 ml @ Titrate IV .Q0M DORI Rx#:[id number] Oral 240 480 480 Other: Voiding Method Toilet Toilet # Voids 3 2 - Exam Physical Exam HEENT:[Neck is supple.] [No neck masses.] [No thyromegaly.] [No JVD.] Chest: [Clear throughout, no crackles, no rhonchi, no wheezes.] Cardiac Exam: [Normal S1 and S2, no S3 gallop, no murmur.] Abdomen: [Soft, nontender, no megaly, no rebound, no guarding, normal bowel sounds.] Extremities: [No clubbing, no edema, no cyanosis.] Neurological Exam: [No focal neurologic deficit.] - Labs CBC & Chem 7: 05/06/16 15:31 05/09/16 07:14 Labs: Abnormal Lab Results - Last 24 Hours (Table) 05/13/16 05/13/16 05/13/16 Range/Units 13:11 15:59 17:03 POC Glucose (mg/dL) 247 H 169 H 186 H (75-99) mg/dL 05/13/16 05/13/16 05/13/16 Range/Units 19:39 21:23 22:32 POC Glucose (mg/dL) 113 H 136 H 189 H (75-99) mg/dL 05/13/16 05/14/16 05/14/16 Range/Units 23:49 01:58 04:05 POC Glucose (mg/dL) 175 H 199 H 201 H (75-99) mg/dL 05/14/16 05/14/16 05/14/16 Range/Units 06:04 07:46 09:53 POC Glucose (mg/dL) 185 H 201 H 140 H (75-99) mg/dL 01/19/17 Range/Units 11:42 POC Glucose (mg/dL) 123 H (75-99) mg/dL Assessment and Plan Plan: 1 acute COPD exacerbation On 05/10/2016, the patient has showed limited improvement in her COPD exacerbation. She still quite bronchospastic and wheezy and short of breath. Chest x-ray remains clear. Rule out acute viral bronchitis with secondary to COPD exacerbation. On 05/11/2016, continues to have symptoms of acute exacerbation of COPD, not quite ready for any discharge planning. On 05/14/2016, patient is doing well, and she'll be cleared for discharge today. 2 shortness of breath secondary to above, recovering 3 chronic renal insufficiency, currently stable 4 diabetes mellitus currently on insulin drip for blood sugar control due to steroid-induced hyperglycemia 5 hypertension 6 hyperlipidemia Plan Switch patient to oral prednisone at 30 mg daily, continue the rest of the bronchodilators, discharge home today, and follow-up with me on outpatient basis. Discussed her condition with Tata Welch. Time with Patient: Less than 30
[2016-05-14 14:18] VITALS: BP 176/82; PULSE 107; TEMP 97.7
== END 2016-05-14 15:15 | disposition home or self-care (01) | DRG 191 ==
LOC: 5MS5E 11:00
PROVIDERS: ADMIT Family Medicine; ATTEND Family Medicine
DX: J44.1 Chronic obstructive pulmonary disease with (acute) exacerbation (principal); J45.41 Moderate persistent asthma with (acute) exacerbation; E11.22 Type 2 diabetes mellitus with diabetic chronic kidney disease; E11.65 Type 2 diabetes mellitus with hyperglycemia; E78.5 Hyperlipidemia, unspecified; E86.0 Dehydration; F41.9 Anxiety disorder, unspecified; I51.7 Cardiomegaly; M19.90 Unspecified osteoarthritis, unspecified site; M85.80 Other specified disorders of bone density and structure, unspecified site; I12.9 Hypertensive chronic kidney disease with stage 1 through stage 4 chronic kidney disease, or unspecified chronic kidney disease; N18.1 Chronic kidney disease, stage 1; T38.0X5A Adverse effect of glucocorticoids and synthetic analogues, initial encounter; Z87.891 Personal history of nicotine dependence; Z88.0 Allergy status to penicillin; Z79.899 Other long term (current) drug therapy; Z88.5 Allergy status to narcotic agent; Z88.7 Allergy status to serum and vaccine; Z88.1 Allergy status to other antibiotic agents; Z91.040 Latex allergy status
CPT/HCPCS: 71020; 80053; 82009; 83036; 85025; 87502; 94640; 94760

== ENCOUNTER 2017-04-25 22:58 | Emergency (ER) | payer MEDICARE, OTHER ==
[2017-04-25 23:16] VITALS: RESP 18; TEMP 96.8
[2017-04-25] MEDS ORDERED: ONDANSETRON 4 MG/2 ML VIAL IVP STA (23:19)
[2017-04-25] MEDS ORDERED: SODIUM CHLORIDE 0.9% 1,000 ML IV STA (23:19)
--- NOTE | 2017-04-25 23:25 | ED ---
General Adult HPI - General Chief complaint: Alcohol Stated complaint: ETOH Time Seen by Provider: 04/25/17 23:08 Source: patient, family, EMS, RN notes reviewed Mode of arrival: EMS Limitations: altered mental status, physical limitation - History of Present Illness Initial comments: 77-year-old female presents to the emergency department with a chief complaint of EtOH intoxication. The patient does not drink on a regular basis and she was at the [facility]. She was given 4 glasses of mild low. The daughter states that she proceeded to vomit for the last hour or so and then she appeared to pass out. She states that she was hard to arouse so she became concerned about her safety. She states she brought her here just to have her evaluated to ensure safety. The patient is sleepy in the room. She is unable to give a history.Patient denies any recent fever, chills, shortness of breath, chest pain, back pain, abdominal pain, nausea vomiting, numbness or tingling, dysuria or hematuria, constipation or diarrhea, headaches or visual changes, or any other current symptoms. - Related Data Home Medications Medication Instructions Recorded Confirmed Amlodipine Besylate/Valsartan 1 tab PO DAILY 09/24/15 05/06/16 [amLODIPine/VALSARTAN 5-320 mg] Atorvastatin [Lipitor] 40 mg PO DAILY 09/25/15 05/06/16 Calcium Carbonate [Calcium] 600 mg PO DAILY 05/06/16 05/06/16 Linagliptin/Metformin HCl 1 tab PO BID 05/06/16 05/06/16 [Jentadueto 2.5 mg-500 mg Tab] Repaglinide [Prandin] 4 mg PO AC-TID 05/06/16 05/06/16 Previous Rx's Medication Instructions Recorded Formoterol Fumarate [Perforomist] 20 mcg INHALATION RT-BID nebu 05/14/16 Levofloxacin [Levaquin] 250 mg PO DAILY@1800 #5 tab 05/14/16 Montelukast [Singulair] 10 mg PO HS #30 tab 05/14/16 predniSONE 30 mg PO DAILY #60 tab 05/14/16 Allergies Allergy/AdvReac Type Severity Reaction Status Date / Time Penicillins Allergy Severe Rash/Hives Verified 04/25/17 23:27 latex Allergy Unknown Rash/Hives/ Verified 04/25/17 23:27 Blisters codeine Allergy Rash/Hives Verified 04/25/17 23:27 diphenhydramine HCl Allergy Swelling Verified 04/25/17 23:27 [From Benadryl] erythromycin base Allergy Rash/Hives Verified 04/25/17 23:27 Iodinated Contrast- Oral and Allergy Rash/Hives Verified 04/25/17 23:27 IV Dye [Iodinated Contrast Media - IV Dye] iodine Allergy Rash/Hives Verified 04/25/17 23:27 Sulfa (Sulfonamide Allergy Rash/Hives Verified 04/25/17 23:27 Antibiotics) Tetanus Vaccines and Toxoid Allergy Unknown Verified 04/25/17 23:27 [Tetanus Vaccines & Toxoid] Tetracyclines Allergy Rash/Hives Verified 04/25/17 23:27 aspirin AdvReac GI Bleed Verified 04/25/17 23:27 Review of Systems ROS Statement: Those systems with pertinent positive or pertinent negative responses have been documented in the HPI. ROS Other: All systems not noted in ROS Statement are negative. Past Medical History Past Medical History: COPD, Diabetes Mellitus, Hyperlipidemia, Hypertension, Osteoarthritis (OA), Renal Disease Additional Past Medical History / Comment(s): COPD, NIDDM type II, diverticulitis, lower GI bleed, bowel obstructions with surgery, ckd stage I History of Any Multi-Drug Resistant Organisms: None Reported Past Surgical History: Cholecystectomy, Hysterectomy, Tonsillectomy, Tubal Ligation Additional Past Surgical History / Comment(s): EGDs/colonoscopies, bowel resections due to obstruction x2, bilateral cataracts removed. Past Anesthesia/Blood Transfusion Reactions: No Reported Reaction Past Psychological History: No Psychological Hx Reported Smoking Status: Never smoker Past Alcohol Use History: None Reported Past Drug Use History: None Reported - Past Family History Mother Family Medical History: No Reported History Additional Family Medical History / Comment(s): Mother was healthy and lived to be 79yrs old. Brother(s) Family Medical History: Diabetes Mellitus General Exam Limitations: altered mental status, physical limitation General appearance: alert Head exam: Present: atraumatic, normocephalic, normal inspection Eye exam: Present: normal appearance, PERRL, EOMI. Absent: scleral icterus, conjunctival injection, periorbital swelling ENT exam: Present: normal exam, mucous membranes moist Respiratory exam: Present: normal lung sounds bilaterally. Absent: respiratory distress, wheezes, rales, rhonchi, stridor Cardiovascular Exam: Present: regular rate, normal rhythm, normal heart sounds. Absent: systolic murmur, diastolic murmur, rubs, gallop, clicks GI/Abdominal exam: Present: soft, normal bowel sounds. Absent: distended, tenderness, guarding, rebound, rigid Neurological exam: Present: alert, oriented X3 Psychiatric exam: Present: normal affect, normal mood Skin exam: Present: warm, dry, intact, normal color. Absent: rash Course Vital Signs 04/25/17 04/26/17 23:11 03:10 Temperature 96.8 F L Pulse Rate 94 75 Respiratory 18 18 Rate Blood Pressure 160/83 126/69 O2 Sat by Pulse 95 92 L Oximetry Medical Decision Making - Medical Decision Making 77-year-old female presents for EtOH intoxication. At this time patient's nausea vomiting has subsided. We did give her liter of fluid. Patient is resting bed however she is still very tired. At this time we did discuss fci. We did discuss return parameters discussed outpatient family's questions. They stated they understood and management this plan. All questions have been answered. This time the patient and family will be discharged. - Lab Data Result diagrams: 04/26/17 00:04 04/26/17 00:04 Lab Results 04/26/17 04/26/17 04/26/17 Range/Units 00:04 00:04 00:04 WBC 6.9 (3.8-10.6) k/uL RBC 3.85 (3.80-5.40) m/uL Hgb 11.3 L (11.4-16.0) gm/dL Hct 35.2 (34.0-46.0) % MCV 91.4 (80.0-100.0) fL MCH 29.4 (25.0-35.0) pg MCHC 32.1 (31.0-37.0) g/dL RDW 15.6 H (11.5-15.5) % Plt Count 312 (150-450) k/uL Neutrophils % 71 % Lymphocytes % 20 % Monocytes % 5 % Eosinophils % 2 % Basophils % 1 % Neutrophils # 4.9 (1.3-7.7) k/uL Lymphocytes # 1.4 (1.0-4.8) k/uL Monocytes # 0.3 (0-1.0) k/uL Eosinophils # 0.2 (0-0.7) k/uL Basophils # 0.1 (0-0.2) k/uL PT 10.3 (9.0-12.0) sec INR 1.1 (<1.2) APTT 21.4 L (22.0-30.0) sec Sodium 140 (137-145) mmol/L Potassium 4.6 (3.5-5.1) mmol/L Chloride 104 (98-107) mmol/L Carbon Dioxide 24 (22-30) mmol/L Anion Gap 12 mmol/L BUN 26 H (7-17) mg/dL Creatinine 1.50 H (0.52-1.04) mg/dL Est GFR (MDRD) Af Amer 41 (>60 ml/min/1.73 sqM) Est GFR (MDRD) Non-Af 34 (>60 ml/min/1.73 sqM) Glucose 210 H (74-99) mg/dL Calcium 8.9 (8.4-10.2) mg/dL Phosphorus 4.3 (2.5-4.5) mg/dL Magnesium 1.8 (1.6-2.3) mg/dL Total Bilirubin 0.4 (0.2-1.3) mg/dL AST 24 (14-36) U/L ALT 42 (9-52) U/L Alkaline Phosphatase 100 (38-126) U/L Total Protein 6.3 (6.3-8.2) g/dL Albumin 4.0 (3.5-5.0) g/dL Amylase 75 (30-110) U/L Lipase 736 H (23-300) U/L Serum Alcohol 152 mg/dL Disposition Clinical Impression: Alcohol intoxication, Elevated lipase Disposition: HOME SELF-CARE Condition: Stable Instructions: Alcohol Intoxication (ED) Additional Instructions: Please use medication as discussed. Please follow up with family doctor if symptoms have not improved over the next two days. Please return to the emergency room if your symptoms increase or worsen or for any other concerns. If she starts to complain of abdominal pain please return to the emergency department. Referrals: Alexander Sarkar MD [Primary Care Provider] - 1-2 days
[2017-04-26] MEDS ORDERED: LORazepam 2 MG/ML INJ IV STA
[2017-04-26 00:30] LABS: Basophils # (A) 0.1 k/uL (0-0.2); Basophils % (A) 1 %; Eosinophils # (A) 0.2 k/uL (0-0.7); Eosinophils % (A) 2 %; HCT 35.2 % (34.0-46.0); HGB 11.3 gm/dL (11.4-16.0); Lymphocytes # (A) 1.4 k/uL (1.0-4.8); Lymphocytes % (A) 20 %; MCH 29.4 pg (25.0-35.0); MCHC 32.1 g/dL (31.0-37.0); MCV 91.4 fL (80.0-100.0); Mean Platelet Volume 7.6; Monocytes # (A) 0.3 k/uL (0-1.0); Monocytes % (A) 5 %; Neutrophils # (A) 4.9 k/uL (1.3-7.7); Neutrophils % (A) 71 %; Platelet Count 312 k/uL (150-450); RBC 3.85 m/uL (3.80-5.40); RDW 15.6 % (11.5-15.5); WBC 6.9 k/uL (3.8-10.6)
[2017-04-26 00:39] LABS: Calcium 8.9 mg/dL (8.4-10.2); Magnesium 1.8 mg/dL (1.6-2.3); Phosphorus 4.3 mg/dL (2.5-4.5); Total Bilirubin 0.4 mg/dL (0.2-1.3); Total Protein 6.3 g/dL (6.3-8.2)
[2017-04-26 00:41] LABS: INR 1.1 (<1.2); Prothrombin Time 10.3 sec (9.0-12.0)
[2017-04-26 00:56] LABS: Potassium 4.6 mmol/L (3.5-5.1)
[2017-04-26 01:29] LABS: Partial Thromboplastin Time 21.4 sec (22.0-30.0)
[2017-04-26 04:32] VITALS: BP 139/81; PULSE 65
== END 2017-04-26 04:46 | disposition home or self-care (01) ==
LOC: EC 22:58
DX: F10.129 Alcohol abuse with intoxication, unspecified (principal); R74.8 Abnormal levels of other serum enzymes; E78.5 Hyperlipidemia, unspecified; E11.22 Type 2 diabetes mellitus with diabetic chronic kidney disease; I12.9 Hypertensive chronic kidney disease with stage 1 through stage 4 chronic kidney disease, or unspecified chronic kidney disease; N18.1 Chronic kidney disease, stage 1; Z88.5 Allergy status to narcotic agent; Z88.0 Allergy status to penicillin; Z91.040 Latex allergy status; Z88.1 Allergy status to other antibiotic agents; Z91.041 Radiographic dye allergy status; Z91.048 Other nonmedicinal substance allergy status; Z88.2 Allergy status to sulfonamides; Z88.7 Allergy status to serum and vaccine; Z88.6 Allergy status to analgesic agent; Z79.84 Long term (current) use of oral hypoglycemic drugs; Z79.899 Other long term (current) drug therapy
CPT/HCPCS: 36415; 80053; 82150; 83690; 83735; 84100; 85025; 85610; 85730; 80320; 99284; 96374; 96375; 96361; J2060; J2405

== ENCOUNTER 2018-08-11 18:53 | Emergency (ER) | payer MEDICARE, OTHER ==
[2018-08-11 19:03] VITALS: BP 160/81; PULSE 82; RESP 18; TEMP 98.8
[2018-08-11] MEDS ORDERED: ACETAMINOPHEN TAB 500 MG TAB PO STA (19:22)
--- NOTE | 2018-08-11 19:52 | XR ---
EXAMINATION TYPE: XR ankle complete RT DATE OF EXAM: 08/11/2018 COMPARISON: NONE HISTORY: Pain TECHNIQUE: 3 views FINDINGS: There is a plantar calcaneal spur. Ankle mortise is anatomic. I see no fracture. IMPRESSION: Calcaneal spurring. No fracture seen.
--- NOTE | 2018-08-11 19:53 | XR ---
EXAMINATION TYPE: XR foot complete RT DATE OF EXAM: 08/11/2018 COMPARISON: NONE HISTORY: Pain TECHNIQUE: 3 views FINDINGS: There is a plantar calcaneal spur. Metatarsals are intact. I see no fracture nor dislocatio n. There are no erosions. IMPRESSION: Calcaneal spurring. No fracture seen.
--- NOTE | 2018-08-11 20:26 | ED ---
General Adult HPI - General Chief complaint: Extremity Injury, Lower Stated complaint: Fall, ankle pain Time Seen by Provider: 08/11/18 19:04 Source: patient, RN notes reviewed Mode of arrival: wheelchair Limitations: no limitations - History of Present Illness Initial comments: 78-year-old female presents to the emergency department for a chief complaint of right foot pain. Patient states that about one hour prior to arrival she was in the parking lot of the hospital when she stepped in a pot hole and twisted her right foot. Patient did not hit her head or sustain any other injuries. Patient states she is able to walk on it but it is somewhat painful.Patient has no other complaints at this time including shortness of breath, chest pain, abdo josephine pain, nausea or vomiting, headache, or visual changes. - Related Data Home Medications Medication Instructions Recorded Confirmed Amlodipine Besylate/Valsartan 1 tab PO DAILY 09/24/15 05/06/16 [amLODIPine/VALSARTAN 5-320 mg] Atorvastatin [Lipitor] 40 mg PO DAILY 09/25/15 05/06/16 Calcium Carbonate [Calcium] 600 mg PO DAILY 05/06/16 05/06/16 Linagliptin/Metformin HCl 1 tab PO BID 05/06/16 05/06/16 [Jentadueto 2.5 mg-500 mg Tab] Repaglinide [Prandin] 4 mg PO AC-TID 05/06/16 05/06/16 Previous Rx's Medication Instructions Recorded Formoterol Fumarate [Perforomist] 20 mcg INHALATION RT-BID nebu 05/14/16 Levofloxacin [Levaquin] 250 mg PO DAILY@1800 #5 tab 05/14/16 Montelukast [Singulair] 10 mg PO HS #30 tab 05/14/16 predniSONE 30 mg PO DAILY #60 tab 05/14/16 Allergies Allergy/AdvReac Type Severity Reaction Status Date / Time Penicillins Allergy Severe Rash/Hives Verified 08/11/18 19:03 latex Allergy Unknown Rash/Hives/ Verified 08/11/18 19:03 Blisters codeine Allergy Rash/Hives Verified 08/11/18 19:03 diphenhydramine HCl Allergy Swelling Verified 08/11/18 19:03 [From Benadryl] erythromycin base Allergy Rash/Hives Verified 08/11/18 19:03 Iodinated Contrast- Oral and Allergy Rash/Hives Verified 08/11/18 19:03 IV Dye [Iodinated Contrast Media - IV Dye] iodine Allergy Rash/Hives Verified 08/11/18 19:03 Sulfa (Sulfonamide Allergy Rash/Hives Verified 08/11/18 19:03 Antibiotics) Tetanus Vaccines and Toxoid Allergy Unknown Verified 08/11/18 19:03 [Tetanus Vaccines & Toxoid] Tetracyclines Allergy Rash/Hives Verified 08/11/18 19:03 aspirin AdvReac GI Bleed Verified 08/11/18 19:03 Review of Systems ROS Statement: Those systems with pertinent positive or pertinent negative responses have been documented in the HPI. ROS Other: All systems not noted in ROS Statement are negative. Past Medical History Past Medical History: COPD, Diabetes Mellitus, Hyperlipidemia, Hypertension, Osteoarthritis (OA), Renal Disease Additional Past Medical History / Comment(s): COPD, NIDDM type II, diverticulitis, lower GI bleed, bowel obstructions with surgery, ckd stage I History of Any Multi-Drug Resistant Organisms: None Reported Past Surgical History: Cholecystectomy, Hysterectomy, Tonsillectomy, Tubal Ligat ion Additional Past Surgical History / Comment(s): EGDs/colonoscopies, bowel resections due to obstruction x2, bilateral cataracts removed. Past Anesthesia/Blood Transfusion Reactions: No Reported Reaction Past Psychological History: No Psychological Hx Reported Smoking Status: Never smoker Past Alcohol Use History: None Reported Past Drug Use History: None Reported - Past Family History Mother Family Medical History: No Reported History Additional Family Medical History / Comment(s): Mother was healthy and lived to be 79yrs old. Brother(s) Family Medical History: Diabetes Mellitus General Exam Limitations: no limitations General appearance: alert, in no apparent distress Head exam: Present: atraumatic, normocephalic, normal inspection Eye exam: Present: normal appearance, PERRL, EOMI. Absent: scleral icterus, conjunctival injection, periorbital swelling ENT exam: Present: normal exam, mucous membranes moist Neck exam: Present: normal inspection, full ROM. Absent: tenderness, meningismus, lymphadenopathy Respiratory exam: Present: normal lung sounds bilaterally. Absent: respiratory distress, wheezes, rales, rhonchi, stridor Cardiovascular Exam: Present: regular rate, normal rhythm, normal heart sounds. Absent: systolic murmur, diastolic murmur, rubs, gallop, clicks Extremities exam: Present: full ROM (Full range motion of the right ankle and digits in the right foot), tenderness (Tenderness to the lateral malleolus and just inferior to the right lateral malleolus), normal capillary refill (Capillary refill less than 2 seconds, PT pulse 2+ in the right lower extremity), joint swelling (Patient does have some edema noted to the left lateral malleolus and just inferior to the lateral malleolus), other (Sensation intact and right lower extremity, no abrasions or lacerations.). Absent: calf tenderness Neurological exam: Present: alert, oriented X3, CN II-XII intact Psychiatric exam: Present: normal affect, normal mood Course Vital Signs 08/11/18 19:01 Temperature 98.8 F Pulse Rate 82 Respiratory 18 Rate Blood Pressure 160/81 O2 Sat by Pulse 98 Oximetry Medical Decision Making - Medical Decision Making 78-year-old female presents for right foot and ankle pain after fall in parking lot. Patient stepped in a pothole. Did not sustain any other injuries. Minimal edema noted to the lateral aspect of the right foot. Patient is able to him today. Neurovascular is intact. X-ray of the right foot and ankle show no acute fractures she likely has a sprain. Dr. Vazquez also examined the patient. Patient will follow up with orthopedics in one to 2 days. She will return here if she has any worsening symptoms. Disposition Clinical Impression: Ankle pain, right Disposition: HOME SELF-CARE Condition: Good Instructions (If sedation given, give patient instructions): Ankle Sprain (ED) Additional Instructions: Please take Tylenol or Motrin for pain. Please rest ice and elevate the right ankle. Use Juan wrap to apply compression. Follow-up with primary care or orthopedics in one to 2 days. Return here to the emergency department if you have any worsening symptoms. Is patient prescribed a controlled substance at d/c from ED?: No Referrals: Alexander Sarkar MD [Primary Care Provider] - 1-2 days Dipesh Chavez DO [Medical Doctor] - 1-2 days Time of Disposition: 20:26
== END 2018-08-11 20:35 | disposition home or self-care (01) ==
LOC: EC 18:53
DX: M25.571 Pain in right ankle and joints of right foot (principal); E78.5 Hyperlipidemia, unspecified; E11.22 Type 2 diabetes mellitus with diabetic chronic kidney disease; I12.9 Hypertensive chronic kidney disease with stage 1 through stage 4 chronic kidney disease, or unspecified chronic kidney disease; N18.1 Chronic kidney disease, stage 1; Z79.84 Long term (current) use of oral hypoglycemic drugs; Z79.899 Other long term (current) drug therapy; Z91.040 Latex allergy status; Z88.0 Allergy status to penicillin; Z91.041 Radiographic dye allergy status; Z88.7 Allergy status to serum and vaccine; Z88.1 Allergy status to other antibiotic agents; Z88.5 Allergy status to narcotic agent; Z88.6 Allergy status to analgesic agent; Z88.8 Allergy status to other drugs, medicaments and biological substances; Z88.2 Allergy status to sulfonamides; W01.0XXA Fall on same level from slipping, tripping and stumbling without subsequent striking against object, initial encounter; Y92.481 Parking lot as the place of occurrence of the external cause
CPT/HCPCS: 99283

== ENCOUNTER → 2018-09-21 | Outpatient (CLI) | payer MEDICARE, OTHER ==
--- NOTE | 2018-09-22 08:54 | XR ---
Right foot and right ankle HISTORY: Trauma and pain 3 views of the right foot and 3 views of the right ankle correlated to previous exam dated 08/11/2018 Exam is stable. There is a plantar calcaneal spur present. Bone mineralization is reduced. There is s oft tissue swelling present. IMPRESSION: No fracture or dislocation of the right foot or ankle.
== END ==
LOC: RADXRMAIN 16:09
PROVIDERS: ATTEND Family Medicine
DX: T14.90XA Injury, unspecified, initial encounter (principal)

== ENCOUNTER 2019-05-03 11:11 | Inpatient (IN) | payer MEDICARE, OTHER ==
[2019-05-03] MEDS: SODIUM CHLORIDE 0.9% 1,000 ML IV SCH (14:06)
[2019-05-03] MEDS ORDERED: IPRATROPIUM-ALBUTEROL 3 ML NEB INHALATION PRN (14:24)
[2019-05-03] MEDS: IPRATROPIUM-ALBUTEROL 3 ML NEB INHALATION SCH ×2 (15:09→20:45)
[2019-05-03] MEDS: methylPREDNISolone SOD SUCCI 125 MG/2 ML VIAL IV SCH (15:35)
[2019-05-03] MEDS: PANTOPRAZOLE 40 MG/10 ML VIAL IVP SCH (15:35)
[2019-05-03] MEDS: FUROSEMIDE 40 MG TAB PO SCH (15:47)
[2019-05-03] MEDS: ACETAMINOPHEN TAB 325 MG TAB PO PRN ×2 (16:02→22:35)
[2019-05-03 16:49] LABS: Glucose,Whole Blood 184 mg/dL (75-99)
[2019-05-03 20:26] LABS: Glucose,Whole Blood 430 mg/dL (75-99)
[2019-05-03 20:41] LABS: Glucose,Whole Blood 444 mg/dL (75-99)
[2019-05-03] MEDS: INSULIN ASPART (NovoLOG) 100 UNIT/ML VIAL SQ SCH (21:35)
[2019-05-04] MEDS: methylPREDNISolone SOD SUCCI 125 MG/2 ML VIAL IV SCH ×3 (00:19→16:05)
[2019-05-04] MEDS: SODIUM CHLORIDE 0.9% 1,000 ML IV SCH ×2 (06:44→08:23)
[2019-05-04 07:04] LABS: Glucose,Whole Blood 360 mg/dL (75-99)
[2019-05-04] MEDS: INSULIN ASPART (NovoLOG) 100 UNIT/ML VIAL SQ SCH ×4 (07:12→21:24)
--- NOTE | 2019-05-04 07:48 | XR ---
EXAMINATION TYPE: XR chest 2V DATE OF EXAM: 05/04/2019 COMPARISON: Chest x-ray May 09, 2016. HISTORY: History of COPD with chest pain. TECHNIQUE: Frontal and lateral views of the chest are obtained. FINDINGS: There is chronic parenchymal changes without suspicious new focal air space opacity, pleur al effusion, or pneumothorax seen. Some eventration anterior aspect right hemidiaphragm redemonstrat ed. The cardiac silhouette size remains enlarged with slightly ectatic thoracic aorta. The osseous structures are demineralized. Cholecystectomy clips are redemonstrated. IMPRESSION: Chronic changes and cardiomegaly without acute pulmonary process.
[2019-05-04 07:57] LABS: Basophils # (A) 0.1 k/uL (0-0.2); Basophils % (A) 1 %; Eosinophils % (A) 0 %; HCT 32.9 % (34.0-46.0); HGB 10.6 gm/dL (11.4-16.0); Lymphocytes # (A) 0.7 k/uL (1.0-4.8); Lymphocytes % (A) 8 %; MCH 29.7 pg (25.0-35.0); MCHC 32.4 g/dL (31.0-37.0); MCV 91.9 fL (80.0-100.0); Mean Platelet Volume 7.9; Monocytes # (A) 0.1 k/uL (0-1.0); Monocytes % (A) 1 %; Neutrophils # (A) 7.6 k/uL (1.3-7.7); Neutrophils % (A) 89 %; Platelet Count 376 k/uL (150-450); RBC 3.58 m/uL (3.80-5.40); RDW 13.8 % (11.5-15.5); WBC 8.6 k/uL (3.8-10.6)
[2019-05-04 08:04] LABS: Albumin 3.6 g/dL (3.5-5.0); Calcium 9.1 mg/dL (8.4-10.2); Potassium 5.7 mmol/L (3.5-5.1); Total Bilirubin 0.3 mg/dL (0.2-1.3); Total Protein 6.2 g/dL (6.3-8.2)
[2019-05-04] MEDS: POTASSIUM CHLORIDE ER 20 MEQ TAB.ER PO SCH (08:16)
[2019-05-04] MEDS: FUROSEMIDE 40 MG TAB PO SCH ×2 (08:16→16:05)
[2019-05-04] MEDS: PANTOPRAZOLE 40 MG/10 ML VIAL IVP SCH (08:17)
[2019-05-04] MEDS: IPRATROPIUM-ALBUTEROL 3 ML NEB INHALATION SCH ×4 (08:23→19:42)
--- NOTE | 2019-05-04 09:17 | HP ---
HISTORY AND PHYSICAL This is a 79-year-old, white female with past medical history of hypertension who developed cough, congestion, severe shortness of breath at rest, saturating in the high 80s to low 90s on room air, failing outpatient treatment with antibiotics and steroids. She came in to the hospital with possible community-acquired pneumonia versus tracheobronchitis with possible COPD exacerbation. The patient was started on IV Solu- Medrol, DuoNeb, and IV antibiotics. The patient was extremely short of breath. Home medications were reordered for hypertension. Due to significant shortness of breath, she was admitted to the hospital. REVIEW OF SYSTEMS: Fourteen-point review of systems, weakness, fatigue, near syncope, congested cough nonstop, unable to breathe at rest. Fourteen-point review of systems negative except for mentioned in HPI. PHYSICAL EXAMINATION: LUNGS: Scattered rhonchi and wheeze, severe, with shortness of breath at rest. CARDIOVASCULAR: S1, S2. Tachycardic. HEMATOLOGIC: Negative Homans. PSYCH: Anxious and nervous. NEUROLOGIC: Cranial nerves are intact. OPHTHALMOLOGIC: Pupils equal, round, and reactive to light and accommodation. GI: Soft, distended, obesity. ASSESSMENT: Acute hypoxic respiratory failure secondary to community-acquired pneumonia versus tracheobronchitis and asthma/chronic obstructive pulmonary disease exacerbation. Chest x-ray was ordered. IV steroids were ordered. IV antibiotics were ordered. The patient was started on broad-spectrum antibiotics. Please see further orders. Possible pulmonary consult if patient does not improve. Order a D-dimer. MMODL / IJN: [id number] /
[2019-05-04 11:52] LABS: Glucose,Whole Blood 245 mg/dL (75-99)
--- NOTE | 2019-05-04 13:05 | NM ---
EXAMINATION TYPE: NM pul vent and perfuse DATE OF EXAM: 05/04/2019 COMPARISON: Chest x-ray 05/04/2019, VQ scan 09/26/2015 HISTORY: Shortness of breath TECHNIQUE: Utilizing inhalation of 34.9 mCi Tc 99m DTPA aerosol and intravenous injection of 5.06 mC i of Tc 99m MAA, ventilation and perfusion images are acquired post injection in multiple projections . FINDINGS: Ventilation images are somewhat limited due to central clumping of radiotracer. There are no sizable mismatch ventilation perfusion defects. There is a tiny subsegmental matched defect right lower lobe. IMPRESSION: Low probability for pulmonary embolism
[2019-05-04] MEDS: ACETAMINOPHEN TAB 325 MG TAB PO PRN ×2 (14:21→23:03)
[2019-05-04] MEDS: PIOGLITAZONE 30 MG TAB PO SCH (16:35)
[2019-05-04 16:38] LABS: Glucose,Whole Blood 457 mg/dL (75-99)
[2019-05-04 20:04] LABS: Glucose,Whole Blood 414 mg/dL (75-99)
[2019-05-04] MEDS: methylPREDNISolone SOD SUCCI 40 MG/ML 1 ML VIAL IV SCH (23:06)
[2019-05-05] MEDS: SODIUM CHLORIDE 0.9% 1,000 ML IV SCH (03:03)
[2019-05-05 07:11] LABS: Glucose,Whole Blood 296 mg/dL (75-99)
[2019-05-05] MEDS: INSULIN ASPART (NovoLOG) 100 UNIT/ML VIAL SQ SCH ×4 (07:27→20:18)
[2019-05-05] MEDS: FUROSEMIDE 40 MG TAB PO SCH (07:28)
[2019-05-05] MEDS: PANTOPRAZOLE 40 MG TABLET PO SCH (07:28)
[2019-05-05] MEDS: ACETAMINOPHEN TAB 325 MG TAB PO PRN ×2 (07:28→20:10)
[2019-05-05] MEDS: ATORVASTATIN 40 MG TAB PO SCH (07:28)
[2019-05-05] MEDS: VALSARTAN 160 MG TAB PO SCH (07:28)
[2019-05-05] MEDS: amLODIPine 5 MG TAB PO SCH (07:29)
[2019-05-05] MEDS: PIOGLITAZONE 30 MG TAB PO SCH (07:29)
[2019-05-05] MEDS: POTASSIUM CHLORIDE ER 20 MEQ TAB.ER PO SCH (07:32)
[2019-05-05] MEDS: methylPREDNISolone SOD SUCCI 40 MG/ML 1 ML VIAL IV SCH ×3 (07:33→23:39)
[2019-05-05] MEDS: IPRATROPIUM-ALBUTEROL 3 ML NEB INHALATION SCH ×4 (07:44→20:49)
[2019-05-05 08:03] LABS: Basophils % (A) 0 %; Eosinophils % (A) 0 %; HCT 31.5 % (34.0-46.0); HGB 10.3 gm/dL (11.4-16.0); Lymphocytes # (A) 0.8 k/uL (1.0-4.8); Lymphocytes % (A) 6 %; MCH 29.6 pg (25.0-35.0); MCHC 32.7 g/dL (31.0-37.0); MCV 90.6 fL (80.0-100.0); Mean Platelet Volume 7.8; Monocytes # (A) 0.2 k/uL (0-1.0); Monocytes % (A) 2 %; Neutrophils % (A) 92 %; Platelet Count 444 k/uL (150-450); RBC 3.48 m/uL (3.80-5.40); RDW 13.6 % (11.5-15.5); WBC 15.2 k/uL (3.8-10.6)
[2019-05-05 08:21] LABS: Albumin 3.5 g/dL (3.5-5.0); Potassium 5.4 mmol/L (3.5-5.1); Total Bilirubin 0.3 mg/dL (0.2-1.3)
[2019-05-05] MEDS ORDERED: AMLODIPINE PO SCH (09:00)
[2019-05-05] MEDS ORDERED: VALSARTAN PO SCH (09:00)
--- NOTE | 2019-05-05 10:56 | P.NPCON ---
History of Present Illness - Reason for Consult acute renal failure, chronic renal failure - History of Present Illness Reason for consultation: Acute kidney injury on chronic kidney disease History of present illness: Patient is a 79-year-old female seen in renal consultation for acute kidney injury on chronic kidney disease. Patient has chronic kidney disease stage III with baseline creatinine near 1.5 from April 2017. This admission her kidney function has been stable with creatinine near 2.4. Patient presented to the hospital with dyspnea. She is currently maintained on IV steroids and bro nchodilators for COPD exacerbation. Patient has history of diabetes mellitus and is maintained on oral medications. She denies use of nonsteroidals. Denies family history of renal disease. No hematuria or dysuria. She admits to good urine output. Patient is also receiving Lasix 40 mg orally twice daily which she takes at home as well. Chest x-ray is not suggestive of fluid overload. She denies history of coronary artery disease. No vomiting or diarrhea. Oral intake is good. 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 Vital signs are stable. General: The patient appeared well nourished and normally developed. HEENT: Head exam is unremarkable. Neck is without jugular venous distension. LUNGS: Breath sounds decreased. HEART: Rate and Rhythm are regular. First and second heart sounds normal. No murmurs, rubs or gallops. ABDOMEN: Abdominal exam reveals normal bowel sounds. Non-tender and non- distended. No evidence of peritonitis. EXTREMITITES: No clubbing, cyanosis, or edema. Past Medical History Past Medical History: COPD, Diabetes Mellitus, Hyperlipidemia, Hypertension, Osteoarthritis (OA), Renal Disease Additional Past Medical History / Comment(s): COPD, NIDDM type II, diverticulitis, lower GI bleed, bowel obstructions with surgery, ckd stage I History of Any Multi-Drug Resistant Organisms: None Reported Past Surgical History: Cholecystectomy, Hysterectomy, Tonsillectomy, Tubal Ligation Additional Past Surgical History / Comment(s): EGDs/colonoscopies, bowel resections due to obstruction x2, bilateral cataracts removed. Past Anesthesia/Blood Transfusion Reactions: No Reported Reaction Past Psychological History: No Psychological Hx Reported Additional Psychological History / Comment(s): Pt resides alone in an apartment. She uses no assistive device. She drives. Smoking Status: Never smoker Past Alcohol Use History: None Reported Past Drug Use History: None Reported - Past Family History Mother Family Medical History: No Reported History Additional Family Medical History / Comment(s): Mother was healthy and lived to be 79yrs old. Brother(s) Family Medical History: Diabetes Mellitus Medications and Allergies Home Medications Medication Instructions Recorded Confirmed Type Furosemide [Lasix] 40 mg PO BID 05/03/19 05/03/19 History Potassium Chloride ER [K-Dur 20] 20 meq PO DAILY 05/03/19 05/03/19 History Atorvastatin [Lipitor] 40 mg PO DAILY 05/04/19 05/04/19 History Pioglitazone [Actos] 1 tab PO DAILY 05/04/19 05/04/19 History amLODIPine/VALSARTAN [Exforge 1 tab PO DAILY 05/04/19 05/04/19 History 5-320 MG] Allergies Allergy/AdvReac Type Severity Reaction Status Date / Time Penicillins Allergy Severe Rash/Hives Verified 05/03/19 13:56 latex Allergy Unknown Rash/Hives/ Verified 05/03/19 13:56 Blisters codeine Allergy Rash/Hives Verified 05/03/19 13:56 diphenhydramine HCl Allergy Swelling Verified 05/03/19 13:56 [From Benadryl] erythromycin base Allergy Rash/Hives Verified 05/03/19 13:56 Iodinated Contrast Media Allergy Rash/Hives Verified 05/03/19 13:56 [Iodinated Contrast Media - IV Dye] iodine Allergy Rash/Hives Verified 05/03/19 13:56 Sulfa (Sulfonamide Allergy Rash/Hives Verified 05/03/19 13:56 Antibiotics) Tetanus Vaccines and Toxoid Allergy Unknown Verified 05/03/19 13:56 [Tetanus Vaccines & Toxoid] Tetracyclines Allergy Rash/Hives Verified 05/03/19 13:56 aspirin AdvReac GI Bleed Verified 05/03/19 13:56 Physical Exam Vitals: Vital Signs Temp Pulse Pulse Resp BP Pulse Ox 05/05/19 08:00 16 05/05/19 07:56 96 05/05/19 07:44 94 05/05/19 06:31 98.0 F 115 H 16 178/86 94 L 05/05/19 01:56 98.0 F 88 19 128/72 94 L 05/05/19 00:00 99 19 05/04/19 21:30 99 19 05/04/19 19:59 102 H 01/09/20 19:43 102 H 05/04/19 19:37 98.1 F 99 19 138/62 96 05/04/19 16:07 100 05/04/19 15:57 100 05/04/19 15:00 97.8 F 99 17 139/65 93 L 05/04/19 13:28 110 H 05/04/19 13:15 92 Intake and Output 05/04/19 05/05/19 05/05/19 22:59 06:59 14:59 Intake Total 540 Balance 540 Intake: Intake, IV Titration 300 Amount Sodium Chloride 0.9% 1, 300 000 ml @ 100 mls/hr IV . Q10H [facility] Rx#:[id number] Oral 240 Other: Voiding Method Toilet Toilet Toilet # Voids 1 2 Results - Lab Results Most recent lab results Calcium 9.0 mg/dL (8.4-10.2) 05/05/19 07:12 05/05/19 07:12 05/05/19 07:12 Assessment and Plan Plan: Assessment: 1. Acute kidney injury mostly prerenal secondary to diuresis. Concern for progression of underlying chronic kidney disease. Renal function stable. Creatinine 2.4 today. 2. Chronic kidney disease stage III with baseline creatinine near 1.5 from April 2017. 3. Dyspnea secondary to acute COPD exacerbation. 4. Hyponatremia secondary to hyperglycemia and diuresis. 5. Metabolic acidosis secondary to acute kidney injury. 6. Diabetes mellitus. Plan: Hep-Lock IV fluids. Discontinue diuretics. Check urinalysis. Check renal ultrasound. Repeat electrolytes in the morning. Avoid nephrotoxins. Maintain Diovan for now as blood pressure is high. Tight blood sugar control. Thank you for the consultation. I will continue to follow the patient with you during her hospital stay.
[2019-05-05 11:33] LABS: Glucose,Whole Blood 284 mg/dL (75-99)
--- NOTE | 2019-05-05 13:24 | US ---
EXAMINATION TYPE: US kidneys/renal and bladder DATE OF EXAM: 05/05/2019 COMPARISON: NONE CLINICAL HISTORY: pablo. PABLO renal failure EXAM MEASUREMENTS: Right Kidney: 9.3 x 5.4 x 4.3 cm Left Kidney: 8.0 x 4.5 x 3.3 cm Right Kidney: Cortical thinning Left Kidney: Cortical thinning anechoic area seen mid pole 1.5 cm. Suggestive of of a simple cyst. Bladder: Anechoic . Bladder is limited due to incomplete distention Bilateral Jets seen: No No nephrolithiasis is seen. The urinary bladder is anechoic. IMPRESSION: Findings compatible with chronic medical renal disease.
[2019-05-05 16:57] LABS: Glucose,Whole Blood 370 mg/dL (75-99)
[2019-05-05 20:16] LABS: Glucose,Whole Blood 368 mg/dL (75-99)
[2019-05-05 20:25] LABS: Appearance,Urine Clear (Clear); Bilirubin,Urine Negative (Negative); Blood,Urine Negative (Negative); Color,Urine Light Yellow; Glucose,Urine (UA) Trace (Negative); Ketones,Urine Negative (Negative); Leukocyte Esterase,Urine Negative (Negative); Nitrite,Urine Negative (Negative); Protein,Urine Trace (Negative); Specific Gravity,Urine 1.006 (1.001-1.035); Urobilinogen,Urine <2.0 mg/dL (<2.0)
--- NOTE | 2019-05-05 21:08 | PN ---
PROGRESS NOTE 79-year-old white female admitted with bronchospasm and dyspnea. She has large amounts of expiratory and inspiratory wheezing. CARDIOVASCULAR: S1, S2. She feels slightly improved since yesterday. Respiratory rate is 25-30. Vital signs otherwise reviewed. Her sodium is 131, potassium 5.4, white count 15.2, hemoglobin 10.3. She had abdominal ultrasound for chronic renal failure stage 4, shows chronic medical renal disease. Chest x-ray now suggestive of fluid overload. She denies history of coronary artery disease. No vomiting or diarrhea. She is for COPD exacerbation, tracheobronchitis, history of diabetes mellitus. Renal ultrasound as mentioned above. Plan is Hep-Lock IV fluids. Discontinue diuretics. Check urinalysis. Renal ultrasound as mentioned above, Diovan for blood pressure. Tight sugar control. ASSESSMENT: 1. Acute renal injury secondary to diuresis. 2. 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 3. Chronic obstructive pulmonary disease exacerbation. 4. Tracheobronchitis. 5. Hyponatremia. 6. Metabolic acidosis. 7. Diabetes mellitus. Please see further orders in the chart. MMODL / IJN: [id number] /
[2019-05-06 06:41] LABS: Basophils # (A) 0.1 k/uL (0-0.2); Basophils % (A) 0 %; Eosinophils % (A) 0 %; HCT 29.7 % (34.0-46.0); HGB 9.7 gm/dL (11.4-16.0); Lymphocytes # (A) 0.5 k/uL (1.0-4.8); Lymphocytes % (A) 4 %; MCH 29.8 pg (25.0-35.0); MCHC 32.6 g/dL (31.0-37.0); MCV 91.2 fL (80.0-100.0); Mean Platelet Volume 7.8; Monocytes # (A) 0.3 k/uL (0-1.0); Monocytes % (A) 3 %; Neutrophils # (A) 10.8 k/uL (1.3-7.7); Neutrophils % (A) 92 %; Platelet Count 395 k/uL (150-450); RBC 3.26 m/uL (3.80-5.40); RDW 13.9 % (11.5-15.5); WBC 11.7 k/uL (3.8-10.6)
[2019-05-06 06:50] LABS: Glucose,Whole Blood 361 mg/dL (75-99)
[2019-05-06 07:05] LABS: Albumin 3.4 g/dL (3.5-5.0); Calcium 8.8 mg/dL (8.4-10.2); Magnesium 2.1 mg/dL (1.6-2.3); Potassium 5.8 mmol/L (3.5-5.1); Total Bilirubin 0.3 mg/dL (0.2-1.3); Total Protein 5.7 g/dL (6.3-8.2)
[2019-05-06] MEDS: IPRATROPIUM-ALBUTEROL 3 ML NEB INHALATION SCH ×4 (07:31→19:02)
[2019-05-06] MEDS: INSULIN ASPART (NovoLOG) 100 UNIT/ML VIAL SQ SCH ×4 (07:58→21:16)
[2019-05-06] MEDS: methylPREDNISolone SOD SUCCI 40 MG/ML 1 ML VIAL IV SCH ×3 (07:58→23:42)
[2019-05-06] MEDS: PANTOPRAZOLE 40 MG TABLET PO SCH (07:59)
[2019-05-06] MEDS: ATORVASTATIN 40 MG TAB PO SCH (07:59)
[2019-05-06] MEDS: POTASSIUM CHLORIDE ER 20 MEQ TAB.ER PO SCH ×2 (07:59→10:37)
[2019-05-06] MEDS: amLODIPine 5 MG TAB PO SCH (07:59)
[2019-05-06] MEDS: PIOGLITAZONE 30 MG TAB PO SCH (08:00)
[2019-05-06] MEDS: VALSARTAN 160 MG TAB PO SCH (08:00)
[2019-05-06] MEDS ORDERED: FUROSEMIDE 10 MG/ML 4 ML VIAL IV STA (09:53)
--- NOTE | 2019-05-06 09:55 | P.PN ---
Subjective Patient is seen in follow-up for acute kidney injury on chronic kidney disease. Patient has chronic kidney disease stage III with baseline creatinine near 1.5 from April 2017. Renal function fairly stable. Creatinine 2.47 today. She admits to swelling in her legs. She's been drinking quite a bit of water. Blood sugars are on the higher side. Sodium level 126 today. States she became short of breath last night and improved with breathing treatments. Vital signs are stable. General: The patient appeared well nourished and normally developed. HEENT: Head exam is unremarkable. Neck is without jugular venous distension. LUNGS: Breath sounds decreased. HEART: Rate and Rhythm are regular. First and second heart sounds normal. No murmurs, rubs or gallops. ABDOMEN: Abdominal exam reveals normal bowel sounds. Non-tender and non-diste nded. No evidence of peritonitis. EXTREMITITES: No clubbing, cyanosis, or edema. Objective - Vital Signs Vital signs: Vital Signs Temp 98.7 F 05/06/19 07:09 Pulse 107 H 05/06/19 07:44 Resp 20 05/06/19 07:09 BP 160/88 05/06/19 07:09 Pulse Ox 98 05/06/19 07:09 Intake & Output 05/05/19 05/06/19 05/06/19 18:59 06:59 18:59 Intake Total 450 900 Balance 450 900 Intake: Intake, IV Titration 450 Amount Sodium Chloride 0.9% 1, 400 000 ml @ 100 mls/hr IV . Q10H DORI Rx#:[id number] cefTRIAXone 1 gm In 50 Sodium Chloride 0.9% 50 ml @ 100 mls/hr IVPB Q24HR DORI Rx#:[id number] Oral 900 Other: Voiding Method Toilet Toilet # Voids 1 - Labs CBC & Chem 7: 05/06/19 06:13 05/06/19 06:13 Labs: Abnormal Lab Results - Last 24 Hours (Table) 05/05/19 05/05/19 05/05/19 Range/Units 11:28 16:55 16:59 WBC (3.8-10.6) k/uL RBC (3.80-5.40) m/uL Hgb (11.4-16.0) gm/dL Hct (34.0-46.0) % Neutrophils # (1.3-7.7) k/uL Lymphocytes # (1.0-4.8) k/uL Sodium (137-145) mmol/L Potassium (3.5-5.1) mmol/L Chloride (98-107) mmol/L Carbon Dioxide (22-30) mmol/L BUN (7-17) mg/dL Creatinine (0.52-1.04) mg/dL Glucose (74-99) mg/dL POC Glucose (mg/dL) 284 H 370 H (75-99) mg/dL Total Protein (6.3-8.2) g/dL Albumin (3.5-5.0) g/dL Urine Protein Trace H (Negative) Urine Glucose (UA) Trace H (Negative) 05/05/19 05/06/19 05/06/19 Range/Units 20:13 06:13 06:13 WBC 11.7 H (3.8-10.6) k/uL RBC 3.26 L (3.80-5.40) m/uL Hgb 9.7 L (11.4-16.0) gm/dL Hct 29.7 L (34.0-46.0) % Neutrophils # 10.8 H (1.3-7.7) k/uL Lymphocytes # 0.5 L (1.0-4.8) k/uL Sodium 126 L (137-145) mmol/L Potassium 5.8 H (3.5-5.1) mmol/L Chloride 95 L (98-107) mmol/L Carbon Dioxide 20 L (22-30) mmol/L BUN 59 H (7-17) mg/dL Creatinine 2.47 H (0.52-1.04) mg/dL Glucose 325 H (74-99) mg/dL POC Glucose (mg/dL) 368 H (75-99) mg/dL Total Protein 5.7 L (6.3-8.2) g/dL Albumin 3.4 L (3.5-5.0) g/dL Urine Protein (Negative) Urine Glucose (UA) (Negative) 05/06/19 Range/Units 06:42 WBC (3.8-10.6) k/uL RBC (3.80-5.40) m/uL Hgb (11.4-16.0) gm/dL Hct (34.0-46.0) % Neutrophils # (1.3-7.7) k/uL Lymphocytes # (1.0-4.8) k/uL Sodium (137-145) mmol/L Potassium (3.5-5.1) mmol/L Chloride (98-107) mmol/L Carbon Dioxide (22-30) mmol/L BUN (7-17) mg/dL Creatinine (0.52-1.04) mg/dL Glucose (74-99) mg/dL POC Glucose (mg/dL) 361 H (75-99) mg/dL Total Protein (6.3-8.2) g/dL Albumin (3.5-5.0) g/dL Urine Protein (Negative) Urine Glucose (UA) (Negative) Assessment and Plan Plan: Assessment: 1. Acute kidney injury mostly prerenal secondary to diuresis. Concern for progression of underlying chronic kidney disease. Renal function stable. Creatinine 2.47 today. No hydronephrosis noted on kidney ultrasound. Left kidney noted to be small in size. 2. Chronic kidney disease stage III with baseline creatinine near 1.5 from April 2017. Trace proteinuria noted on UA. 3. Dyspnea secondary to acute COPD exacerbation. 4. Hyponatremia secondary to hyperglycemia, metabolic acidosis and potassium supplementation. Patient is also on valsartan. 5. Metabolic acidosis secondary to acute kidney injury. 6. Diabetes mellitus. Plan: Lasix 40 mg IV once today. 1200 mL fluid restriction. Discontinue potassium supplementation. Maintain Diovan for now as blood pressure is high. Tight blood sugar control. Check urine osmolality and urine sodium level. Repeat potassium level this evening. Add oral sodium bicarbonate.
[2019-05-06] MEDS: SODIUM BICARBONATE TAB 650 MG TAB PO SCH ×2 (10:29→21:16)
[2019-05-06] MEDS: ACETAMINOPHEN TAB 325 MG TAB PO PRN (10:32)
[2019-05-06 12:14] LABS: Glucose,Whole Blood 444 mg/dL (75-99)
[2019-05-06] MEDS ORDERED: INSULIN ASPART (NovoLOG) 100 UNIT/ML VIAL SQ ONE ×2 (12:30→18:09)
[2019-05-06 17:07] LABS: Glucose,Whole Blood 413 mg/dL (75-99)
[2019-05-06 20:50] LABS: Glucose,Whole Blood 334 mg/dL (75-99)
--- NOTE | 2019-05-06 22:08 | CT ---
EXAMINATION TYPE: CT chest wo con DATE OF EXAM: 05/06/2019 COMPARISON: None HISTORY: dyspnea, cough CT DLP: 319.8 mGycm Automated exposure control for dose reduction was used. Multiple axial sections were obtained from the thoracic inlet to the diaphragm with no contrast. The lungs are clear of consolidation. There is no pleural effusion. There is mild subsegmental atelec tasis left lung base. There is no pericardial effusion. There is coronary artery calcification. There is bronchial cartilage calcification. There is no mediastinal adenopathy. There are no hilar masses. There is no evidence of a pulmonary mass. Thoracic spine is intact. Ribs appear intact. IMPRESSION: Mild atherosclerotic vascular disease. Minimal scarring and subsegmental atelectasis left lung base. No evidence of a pulmonary mass.
--- NOTE | 2019-05-06 22:27 | PN ---
PROGRESS NOTE This is a 79-year-old white female with tracheobronchitis, cough, congestion, shortness of breath; continues to improve. Her wheezing has diminished since yesterday. She admits to swelling in her legs. Creatinine is 2.47. Sugars are high due to steroids. Sodium 126. Short of breath last night with breathing treatments. Heart: S1, S2. Abdomen is soft, nontender. Extremities with no cyanosis, clubbing, edema. Temp 98.7, pulse 107, respiratory rate 20, blood pressure 160/88, O2 98. LABS: Are reviewed. Sodium 126, potassium 5.8, BUN is 59, white count 11.7, hemoglobin is 9.7, creatinine is 2.47, glucose 325, albumin is 3.4, glucose 361. ASSESSMENT: 1. Acute kidney injury, most likely prerenal secondary to diuresis. 2. Chronic kidney disease stage 3. 3. Chronic obstructive pulmonary disease exacerbation. 4. Hyponatremia secondary to hyperglycemia. 5. Metabolic acidosis. 6. Diabetes mellitus. 7. Fluid restriction and diuresis. 8. Hypertension, controlled. Diabetes will be controlled. Continue with IV antibiotics, IV steroids, updraft treatments for breathing difficulties due to her tracheobronchitis and COPD exacerbation, as she has chronic kidney disease which is made worse possibly by infection and shortness of breath due to COPD exacerbation. MMODL / IJN: [id number] /
[2019-05-07 06:58] LABS: Glucose,Whole Blood 323 mg/dL (75-99)
[2019-05-07 07:13] LABS: Magnesium 2.2 mg/dL (1.6-2.3); Potassium 5.5 mmol/L (3.5-5.1)
[2019-05-07] MEDS: PANTOPRAZOLE 40 MG TABLET PO SCH (07:14)
[2019-05-07] MEDS: INSULIN ASPART (NovoLOG) 100 UNIT/ML VIAL SQ SCH ×4 (07:14→17:55)
[2019-05-07] MEDS: methylPREDNISolone SOD SUCCI 40 MG/ML 1 ML VIAL IV SCH ×2 (07:14→17:54)
[2019-05-07] MEDS: IPRATROPIUM-ALBUTEROL 3 ML NEB INHALATION SCH ×4 (08:04→19:42)
[2019-05-07] MEDS: SODIUM BICARBONATE TAB 650 MG TAB PO SCH ×2 (09:46→21:02)
[2019-05-07] MEDS: ATORVASTATIN 40 MG TAB PO SCH (09:46)
[2019-05-07] MEDS: amLODIPine 5 MG TAB PO SCH (09:46)
[2019-05-07] MEDS: PIOGLITAZONE 30 MG TAB PO SCH (09:46)
[2019-05-07] MEDS: VALSARTAN 160 MG TAB PO SCH (09:46)
--- NOTE | 2019-05-07 10:14 | P.PN ---
Subjective Patient is seen in follow-up for acute kidney injury on chronic kidney disease. Patient has chronic kidney disease stage III with baseline creatinine near 1.5 from April 2017. Renal function is worse today which is due to diuresis. She admits to heavy legs. She received Lasix 40 mg IV once yesterday. Complaining of a nonproductive cough. Blood sugars remain elevated. Vital signs are stable. General: The patient appeared well nourished and normally developed. HEENT: Head exam is unremarkable. Neck is without jugular venous distension. LUNGS: Breath sounds decreased. Scattered wheezing. HEART: Rate and Rhythm are regular. First and second heart sounds normal. No murmurs, rubs or gallops. ABDOMEN: Abdominal exam reveals normal bowel sounds. Non-tender and non- distended. No evidence of peritonitis. EXTREMITITES: Trace edema. Objective - Vital Signs Vital signs: Vital Signs Temp 98.2 F 05/07/19 07:00 Pulse 99 05/07/19 08:06 Resp 16 05/07/19 07:00 BP 155/75 05/07/19 07:00 Pulse Ox 96 05/07/19 07:00 Intake & Output 05/06/19 05/07/19 05/07/19 18:59 06:59 18:59 Intake Total 480 120 Balance 480 120 Intake: Oral 480 120 Other: Voiding Method Toilet Toilet # Voids 1 1 - Labs CBC & Chem 7: 05/06/19 06:13 05/07/19 06:40 Labs: Abnormal Lab Results - Last 24 Hours (Table) 05/06/19 05/06/19 05/06/19 Range/Units 11:28 16:47 17:41 Sodium (137-145) mmol/L Potassium 5.7 H (3.5-5.1) mmol/L Carbon Dioxide (22-30) mmol/L BUN (7-17) mg/dL Creatinine (0.52-1.04) mg/dL Glucose (74-99) mg/dL POC Glucose (mg/dL) 444 H 413 H (75-99) mg/dL 05/06/19 05/07/19 05/07/19 Range/Units 20:48 06:40 06:54 Sodium 130 L (137-145) mmol/L Potassium 5.5 H (3.5-5.1) mmol/L Carbon Dioxide 21 L (22-30) mmol/L BUN 72 H (7-17) mg/dL Creatinine 2.95 H (0.52-1.04) mg/dL Glucose 279 H (74-99) mg/dL POC Glucose (mg/dL) 334 H 323 H (75-99) mg/dL Assessment and Plan Plan: Assessment: 1. Acute kidney injury mostly prerenal secondary to diuresis. Concern for progression of underlying chronic kidney disease. Cr 2.95 today. No hydronephrosis noted on kidney ultrasound. Left kidney noted to be small in size. 2. Chronic kidney disease stage III with baseline creatinine near 1.5 from Alexandr garcia 2018. Trace proteinuria noted on UA. 3. Dyspnea secondary to acute COPD exacerbation. 4. Hyperkalemia secondary to hyperglycemia, metabolic acidosis and potassium supplementation. Patient is also on valsartan. Better. 5. Metabolic acidosis secondary to acute kidney injury maintained on oral sodium bicarbonate. 6. Diabetes mellitus. Blood sugars high partially due to IV steroids. 7. Hyponatremia secondary to hyperglycemia and poor solute intake. Urine osmolality noted to be on the lower side at 238. Better with fluid restriction. Plan: Hold diuretics today. 1200 mL fluid restriction. Discontinued potassium supplementation. Maintain Diovan for now as blood pressure is high. Tight blood sugar control. Low potassium diet. Repeat electrolytes in the morning.
[2019-05-07 11:49] LABS: Glucose,Whole Blood 368 mg/dL (75-99)
[2019-05-07] MEDS: BENZONATATE 100 MG CAP PO SCH ×3 (12:05→21:02)
[2019-05-07] MEDS ORDERED: INSULIN REGULAR BOLUS (FROM DRIP BAG) IV ONE (12:34)
--- NOTE | 2019-05-07 12:34 | P.CNPUL ---
History of Present Illness Consult date: 05/07/19 Reason for consult: dyspnea History of present illness: 79-year-old female patient was hospitalized with symptoms and acute bronchitis. No clear-cut history of COPD or asthma. She is a lifetime nonsmoker. She had a similar hospitalization approximately 2 years ago when she developed taken bronchitis with reactive bronchospasm wheezing. She has been using any follow make necessary medication outpatient basis. She is known to have chronic stage III kidney disease. Creatinine approximately is out 1.5 back in general 2018. She is diabetic. She has been taken Lasix 40 mg twice a day on outpatient basis. Since admission, the patient was subjected to a combination of bronchodilators and steroids and antibiotics. Her renal functions got a worsening creatinine is up to 2.9 and diuretics has been stopped. She has developed some hyperglycemia in the blood sugars are still running high above 300. No significant sputum production. CAT scan of the chest SHOWS NO EVIDENCE OF A PNEUMONIA OR CHRONIC LUNG DISEASE. Review of Systems Constitutional: Denies chills, Denies fever Eyes: denies as per HPI, denies blurred vision, denies bulging eye, denies decreased vision, denies diplopia, denies discharge, denies dry eye, denies irritation, denies itching, denies pain, denies photophobia, denies loss of peripheral vision, denies loss of vision, denies tunnel vision/blind spots Ears: deny: decreased hearing, ear discharge, earache, tinnitus Ears, nose, mouth and throat: Denies headache, Denies sore throat Breasts: right: as per HPI, absent: change in shape, gynecomastia, masses, nipple discharge, pain, skin changes, swelling Cardiovascular: Reports leg edema, Reports shortness of breath Respiratory: Reports cough, Reports dyspnea, Reports wheezing Gastrointestinal: Reports as per HPI Genitourinary: Reports as per HPI Menstruation: Reports as per HPI Musculoskeletal: Reports as per HPI Musculoskeletal: bilateral: ankle swelling, absent: ankle pain, ankle stiffness Neurological: Reports as per HPI Psychiatric: Reports as per HPI Endocrine: Reports as per HPI Hematologic/Lymphatic: Reports as per HPI Allergic/Immunologic: Reports as per HPI Past Medical History Past Medical History: COPD, Diabetes Mellitus, Hyperlipidemia, Hypertension, Ost eoarthritis (OA), Renal Disease Additional Past Medical History / Comment(s): COPD, NIDDM type II, diverticulitis, lower GI bleed, bowel obstructions with surgery, ckd stage 3 History of Any Multi-Drug Resistant Organisms: None Reported Past Surgical History: Cholecystectomy, Hysterectomy, Tonsillectomy, Tubal Ligation Additional Past Surgical History / Comment(s): EGDs/colonoscopies, bowel resect ions due to obstruction x2, bilateral cataracts removed. Past Anesthesia/Blood Transfusion Reactions: No Reported Reaction Past Psychological History: No Psychological Hx Reported Additional Psychological History / Comment(s): Pt resides alone in an apartment. She uses no assistive device. She drives. Smoking Status: Never smoker Past Alcohol Use History: None Reported Past Drug Use History: None Reported - Past Family History Mother Family Medical History: No Reported History Additional Family Medical History / Comment(s): Mother was healthy and lived to be 79yrs old. Brother(s) Family Medical History: Diabetes Mellitus Medications and Allergies Home Medications Medication Instructions Recorded Confirmed Type Furosemide [Lasix] 40 mg PO BID 05/03/19 05/03/19 History Potassium Chloride ER [K-Dur 20] 20 meq PO DAILY 05/03/19 05/03/19 History Atorvastatin [Lipitor] 40 mg PO DAILY 05/04/19 05/04/19 History Pioglitazone [Actos] 1 tab PO DAILY 05/04/19 05/04/19 History amLODIPine/VALSARTAN [Exforge 1 tab PO DAILY 05/04/19 05/04/19 History 5-320 MG] Allergies Allergy/AdvReac Type Severity Reaction Status Date / Time Penicillins Allergy Severe Rash/Hives Verified 05/03/19 13:56 latex Allergy Unknown Rash/Hives/ Verified 05/03/19 13:56 Blisters codeine Allergy Rash/Hives Verified 05/03/19 13:56 diphenhydramine HCl Allergy Swelling Verified 05/03/19 13:56 [From Benadryl] erythromycin base Allergy Rash/Hives Verified 05/03/19 13:56 Iodinated Contrast Media Allergy Rash/Hives Verified 05/03/19 13:56 [Iodinated Contrast Media - IV Dye] iodine Allergy Rash/Hives Verified 05/03/19 13:56 Sulfa (Sulfonamide Allergy Rash/Hives Verified 05/03/19 13:56 Antibiotics) Tetanus Vaccines and Toxoid Allergy Unknown Verified 05/03/19 13:56 [Tetanus Vaccines & Toxoid] Tetracyclines Allergy Rash/Hives Verified 05/03/19 13:56 aspirin AdvReac GI Bleed Verified 05/03/19 13:56 Physical Exam Vitals: Vital Signs Temp Pulse Pulse Resp BP Pulse Ox 05/07/19 11:52 100 05/07/19 11:44 96 05/07/19 08:15 100 05/07/19 08:06 99 05/07/19 07:00 98.2 F 100 16 155/75 96 05/07/19 02:25 97.8 F 78 137/69 96 05/06/19 19:35 98.1 F 108 H 18 168/77 96 05/06/19 19:16 100 05/06/19 19:03 100 05/06/19 15:26 100 05/06/19 15:14 100 05/06/19 15:00 98.6 F 99 18 158/88 99 Intake and Output 05/06/19 05/07/19 05/07/19 22:59 06:59 14:59 Intake Total 600 Balance 600 Intake: Oral 600 Other: Voiding Method Toilet Toilet # Voids 1 GENERAL EXAM: Alert, comfortable in no apparent distress. HEAD: Normocephalic. EYES: Normal reaction of pupils, equal size. NOSE: Clear with pink turbinates. THROAT: No erythema or exudates. NECK: No masses, no JVD. CHEST: No chest wall deformity. LUNGS: Equal air entry with bilateral wheeze. CVS: S1 and S2 normal with no audible murmurs, regular rhythm. ABDOMEN: No hepatosplenomegaly, normal bowel sounds, no guarding or rigidity. SPINE: No scoliosis or deformity SKIN: No rashes CENTRAL NERVOUS SYSTEM: No focal deficits, tone is normal in all 4 extremities. Extremities: There is significant peripheral edema. No clubbing, no cyanosis. Peripheral pulses are intact. Results - Laboratory Findings CBC and BMP: 05/06/19 06:13 05/07/19 06:40 PT/INR, D-dimer D-Dimer 0.66 mg/L FEU (<0.60) H 05/04/19 07:23 Abnormal lab findings: Abnormal Labs 05/03/19 05/03/19 05/03/19 16:41 20:24 20:31 WBC RBC Hgb Hct Neutrophils # Lymphocytes # D-Dimer Sodium Potassium Chloride Carbon Dioxide BUN Creatinine Glucose POC Glucose (mg/dL) 184 H 430 H 444 H Plasma Lactic Acid Brendan Total Protein Albumin Urine Protein Urine Glucose (UA) 05/04/19 05/04/19 05/04/19 07:02 07:23 07:23 WBC RBC 3.58 L Hgb 10.6 L Hct 32.9 L Neutrophils # Lymphocytes # 0.7 L D-Dimer 0.66 H Sodium Potassium Chloride Carbon Dioxide BUN Creatinine Glucose POC Glucose (mg/dL) 360 H Plasma Lactic Acid Brendan Total Protein Albumin Urine Protein Urine Glucose (UA) 05/04/19 05/04/19 05/04/19 07:23 07:23 11:17 WBC RBC Hgb Hct Neutrophils # Lymphocytes # D-Dimer Sodium 133 L Potassium 5.7 H Chloride Carbon Dioxide BUN 41 H Creatinine 2.41 H Glucose 302 H POC Glucose (mg/dL) Plasma Lactic Acid Brendan 3.3 H* 2.1 H* Total Protein 6.2 L Albumin Urine Protein Urine Glucose (UA) 05/04/19 05/04/19 05/04/19 11:50 16:34 20:01 WBC RBC Hgb Hct Neutrophils # Lymphocytes # D-Dimer Sodium Potassium Chloride Carbon Dioxide BUN Creatinine Glucose POC Glucose (mg/dL) 245 H 457 H 414 H Plasma Lactic Acid Brendan Total Protein Albumin Urine Protein Urine Glucose (UA) 05/05/19 05/05/19 05/05/19 07:07 07:12 07:12 WBC 15.2 H RBC 3.48 L Hgb 10.3 L Hct 31.5 L Neutrophils # 14.0 H Lymphocytes # 0.8 L D-Dimer Sodium 131 L Potassium 5.4 H Chloride Carbon Dioxide 19 L BUN 46 H Creatinine 2.40 H Glucose 255 H POC Glucose (mg/dL) 296 H Plasma Lactic Acid Brendan Total Protein 6.0 L Albumin Urine Protein Urine Glucose (UA) 05/05/19 05/05/19 05/05/19 11:28 16:55 16:59 WBC RBC Hgb Hct Neutrophils # Lymphocytes # D-Dimer Sodium Potassium Chloride Carbon Dioxide BUN Creatinine Glucose POC Glucose (mg/dL) 284 H 370 H Plasma Lactic Acid Brendan Total Protein Albumin Urine Protein Trace H Urine Glucose (UA) Trace H 05/05/19 05/06/19 05/06/19 20:13 06:13 06:13 WBC 11.7 H RBC 3.26 L Hgb 9.7 L Hct 29.7 L Neutrophils # 10.8 H Lymphocytes # 0.5 L D-Dimer Sodium 126 L Potassium 5.8 H Chloride 95 L Carbon Dioxide 20 L BUN 59 H Creatinine 2.47 H Glucose 325 H POC Glucose (mg/dL) 368 H Plasma Lactic Acid Brendan Total Protein 5.7 L Albumin 3.4 L Urine Protein Urine Glucose (UA) 05/06/19 05/06/19 05/06/19 06:42 11:28 16:47 WBC RBC Hgb Hct Neutrophils # Lymphocytes # D-Dimer Sodium Potassium Chloride Carbon Dioxide BUN Creatinine Glucose POC Glucose (mg/dL) 361 H 444 H 413 H Plasma Lactic Acid Brendan Total Protein Albumin Urine Protein Urine Glucose (UA) 05/06/19 05/06/19 05/07/19 17:41 20:48 06:40 WBC RBC Hgb Hct Neutrophils # Lymphocytes # D-Dimer Sodium 130 L Potassium 5.7 H 5.5 H Chloride Carbon Dioxide 21 L BUN 72 H Creatinine 2.95 H Glucose 279 H POC Glucose (mg/dL) 334 H Plasma Lactic Acid Brendan Total Protein Albumin Urine Protein Urine Glucose (UA) 05/07/19 05/07/19 06:54 11:40 WBC RBC Hgb Hct Neutrophils # Lymphocytes # D-Dimer Sodium Potassium Chloride Carbon Dioxide BUN Creatinine Glucose POC Glucose (mg/dL) 323 H 368 H Plasma Lactic Acid Brendan Total Protein Albumin Urine Protein Urine Glucose (UA) Assessment and Plan Plan: #1 Acute Tracheobronchitis. There is no evidence of any pneumonia. The possibility of a chronic lung disease such as COPD and asthma is possible although less likely. The patient similar episode back in 2016 and she recovered nicely. She will need a pulmonary function test following her for recovery. She is currently on a combination of bronchodilators and steroids. #2 Dyspnea secondary to above. #3 Chronic renal insufficiency, the patient is an acute on top of chronic renal insufficiency and currently she is under the care of nephrology. #4 Diabetes mellitus with steroid-induced hyperglycemia #5 Hypertension. #6 Hyperlipidemia. #7 lower extremity edema Plan Continue same treatment. Monitor renal function. Continue steroids. Insulin drip for blood sugar control. Influenza screen has not been done at time of admission. This will be ordered although intermittently but at least it may indicate influenza positive.Bronchoscopy if there is no improvement.
[2019-05-07] MEDS ORDERED: INSULIN REGULAR 100 UNIT in SODIUM CHLORIDE 0.9% 100 ML IV SCH (13:00)
[2019-05-07] MEDS: LEVOFLOXACIN 250MG-D5W PMX 250 MG in DEXTROSE/WATER 1 50ML.BAG IVPB SCH (13:58)
--- NOTE | 2019-05-07 16:12 | PN ---
PROGRESS NOTE 79-year-old white female has large amount wheezing, cough, congestion, persistent. I ordered Tessalon Perles and added low-dose second antibiotic for tracheobronchitis as she does not appear to be responding for 2 to 3 days. Lungs show scattered rhonchi and wheeze. Hematology negative Homans. Psych: Fair mood and affect. Neurological: Alert and oriented x3. ASSESSMENT: 1. Tracheobronchitis. 2. Bronchospasm. 3. Possible chronic obstructive pulmonary disease. 4. Chronic renal disease stage 3-4. Continue current treatment. Steroids. Antibiotics. Updrafts. Discussed Dr. Rodriguez's and Dr. Aguiar's reports with the patient. Hopefully the patient will improve over the next 24 to 48 hours. MMCINDYL / ENEN: [id number] /
[2019-05-07 17:08] LABS: Glucose,Whole Blood 204 mg/dL (75-99)
[2019-05-07 18:23] LABS: Glucose,Whole Blood 242 mg/dL (75-99)
[2019-05-07 19:08] LABS: Glucose,Whole Blood 183 mg/dL (75-99)
[2019-05-07 20:56] LABS: Glucose,Whole Blood 133 mg/dL (75-99)
[2019-05-07 22:19] LABS: Glucose,Whole Blood 159 mg/dL (75-99)
[2019-05-07 23:32] LABS: Glucose,Whole Blood 207 mg/dL (75-99)
[2019-05-08] MEDS: methylPREDNISolone SOD SUCCI 40 MG/ML 1 ML VIAL IV SCH ×3 (00:35→17:43)
[2019-05-08 01:45] LABS: Glucose,Whole Blood 146 mg/dL (75-99)
[2019-05-08 03:43] LABS: Glucose,Whole Blood 198 mg/dL (75-99)
[2019-05-08 05:47] LABS: Glucose,Whole Blood 144 mg/dL (75-99)
[2019-05-08] MEDS: IPRATROPIUM-ALBUTEROL 3 ML NEB INHALATION SCH ×4 (07:52→20:36)
[2019-05-08 07:53] LABS: Glucose,Whole Blood 145 mg/dL (75-99)
[2019-05-08] MEDS: INSULIN ASPART (NovoLOG) 100 UNIT/ML VIAL SQ SCH ×5 (08:04→22:09)
[2019-05-08] MEDS: ATORVASTATIN 40 MG TAB PO SCH (08:05)
[2019-05-08] MEDS: PANTOPRAZOLE 40 MG TABLET PO SCH (08:05)
[2019-05-08] MEDS: BENZONATATE 100 MG CAP PO SCH ×3 (08:05→21:09)
[2019-05-08] MEDS: SODIUM BICARBONATE TAB 650 MG TAB PO SCH ×2 (08:05→21:09)
[2019-05-08] MEDS: amLODIPine 5 MG TAB PO SCH (08:05)
[2019-05-08 08:06] LABS: Calcium 9.3 mg/dL (8.4-10.2); Potassium 5.8 mmol/L (3.5-5.1)
[2019-05-08] MEDS: VALSARTAN 160 MG TAB PO SCH (08:06)
[2019-05-08] MEDS: PIOGLITAZONE 30 MG TAB PO SCH (08:06)
[2019-05-08 10:05] LABS: Glucose,Whole Blood 225 mg/dL (75-99)
[2019-05-08 11:29] VITALS: BMI 32.4
[2019-05-08 11:53] LABS: Glucose,Whole Blood 208 mg/dL (75-99)
--- NOTE | 2019-05-08 12:07 | P.PN ---
Subjective Progress Note Date: 05/08/19 Principal diagnosis: acute tracheobronchitis, without evidence of any pneumonia, dyspnea 79-year-old female patient was hospitalized with symptoms and acute bronchitis. No clear-cut history of COPD or asthma. She is a lifetime nonsmoker. She had a similar hospitalization approximately 2 years ago when she developed taken bronchitis with reactive bronchospasm wheezing. She has been using any follow make necessary medication outpatient basis. She is known to have chronic stage III kidney disease. Creatinine approximately is out 1.5 back in general 2018. She is diabetic. She has been taken Lasix 40 mg twice a day on outpatient basis. Since admission, the patient was subjected to a combination of bronchodilators and steroids and antibiotics. Her renal functions got a worsening creatinine is up to 2.9 and diuretics has been stopped. She has developed some hyperglycemia in the blood sugars are still running high above 300. No significant sputum production. CAT scan of the chest SHOWS NO EVIDENCE OF A PNEUMONIA OR CHRONIC LUNG DISEASE. On 05/08/2019 patient is seen in follow-up on the surgical floor. Patient was able to get up and get in the shower, she still complains of coughing and wheezing, room air pulse ox is 95%, she is afebrile, hemodynamically stable, patient seems to be somewhat agitated this morning, and upset regarding the type of breakfast she got, and her infiltrated IV and about water from the tap. We'll have the manager of community relations speak to her. physical exam reveals bronchospastic lung sounds, and patient is complaining of increased lower extremity swelling, his labs have been reviewed, showing worsening of patient's renal profile, nephrology is following, Lasix remains on hold, CT chest on 05/06/2019 showed minimal scarring and subsegmental atelectasis at the lung bases no evidence of a pulmonary mass. Objective - Vital Signs Vital signs: Vital Signs Temp 98.5 F 05/08/19 07:00 Pulse 94 05/08/19 11:27 Resp 16 05/08/19 07:00 BP 176/91 05/08/19 07:00 Pulse Ox 95 05/08/19 07:00 Intake & Output 05/07/19 05/08/19 05/08/19 18:59 06:59 18:59 Intake Total 720 1190.817 248.733 Balance 720 1190.817 248.733 Weight 80.5 kg Intake: Intake, IV Titration 330.817 8.733 Amount Insulin Regular 100 unit 30.817 8.733 In Sodium Chloride 0.9% 100 ml @ Titrate IV .Q0M DORI Rx#:[id number] Levofloxacin 250Mg-D5w 300 Pmx 250 mg In Dextrose/ Water 1 50ml.bag @ 50 mls /hr IVPB Q48H DORI Rx#: [id number] Oral 720 860 240 Other: Voiding Method Toilet Toilet # Voids 1 - Exam GENERAL EXAM: Alert, 79-year-old white female, on room air, quite agitated and upset, but comfortable in no apparent distress. HEAD: Normocephalic/atraumatic. EYES: Normal reaction of pupils, equal size. Conjunctiva pink, sclera white. NOSE: Clear with pink turbinates. THROAT: No erythema or exudates. NECK: No masses, no JVD, no thyroid enlargement, no adenopathy. CHEST: No chest wall deformity. Symmetrical expansion. LUNGS: Equal air entry with diffuse wheezes CVS: Regular rate and rhythm, normal S1 and S2, no gallops, no murmurs, no rubs ABDOMEN: Soft, nontender. No hepatosplenomegaly, normal bowel sounds, no gua rding or rigidity. EXTREMITIES: No clubbing, mild pretibial edema, no cyanosis, 2+ pulses and upper and lower extremities. MUSCULOSKELETAL: Muscle strength and tone normal. SPINE: No scoliosis or deformity SKIN: No rashes CENTRAL NERVOUS SYSTEM: Alert and oriented -3. No focal deficits, tone is no rmal in all 4 extremities. PSYCHIATRIC: Alert and oriented -3. Appropriate affect. Intact judgment and insight. - Labs CBC & Chem 7: 05/06/19 06:13 05/08/19 07:18 Labs: Abnormal Lab Results - Last 24 Hours (Table) 05/07/19 05/07/19 05/07/19 Range/Units 16:33 16:56 18:13 Sodium (137-145) mmol/L Potassium 5.3 H (3.5-5.1) mmol/L Carbon Dioxide (22-30) mmol/L BUN (7-17) mg/dL Creatinine (0.52-1.04) mg/dL Glucose (74-99) mg/dL POC Glucose (mg/dL) 204 H 242 H (75-99) mg/dL 05/07/19 05/07/19 05/07/19 Range/Units 19:03 20:55 22:18 Sodium (137-145) mmol/L Potassium (3.5-5.1) mmol/L Carbon Dioxide (22-30) mmol/L BUN (7-17) mg/dL Creatinine (0.52-1.04) mg/dL Glucose (74-99) mg/dL POC Glucose (mg/dL) 183 H 133 H 159 H (75-99) mg/dL 05/07/19 05/08/19 05/08/19 Range/Units 23:30 01:44 03:42 Sodium (137-145) mmol/L Potassium (3.5-5.1) mmol/L Carbon Dioxide (22-30) mmol/L BUN (7-17) mg/dL Creatinine (0.52-1.04) mg/dL Glucose (74-99) mg/dL POC Glucose (mg/dL) 207 H 146 H 198 H (75-99) mg/dL 05/08/19 05/08/19 05/08/19 Range/Units 05:46 07:18 07:51 Sodium 135 L (137-145) mmol/L Potassium 5.8 H (3.5-5.1) mmol/L Carbon Dioxide 21 L (22-30) mmol/L BUN 86 H (7-17) mg/dL Creatinine 3.20 H (0.52-1.04) mg/dL Glucose 126 H (74-99) mg/dL POC Glucose (mg/dL) 144 H 145 H (75-99) mg/dL 05/08/19 Range/Units 10:03 Sodium (137-145) mmol/L Potassium (3.5-5.1) mmol/L Carbon Dioxide (22-30) mmol/L BUN (7-17) mg/dL Creatinine (0.52-1.04) mg/dL Glucose (74-99) mg/dL POC Glucose (mg/dL) 225 H (75-99) mg/dL Assessment and Plan Plan: #1 Acute Tracheobronchitis. There is no evidence of any pneumonia. The possibility of a chronic lung disease such as COPD and asthma is possible although less likely. The patient similar episode back in 2017 and she recovered nicely. She will need a pulmonary function test following her for recovery. She is currently on a combination of bronchodilators and steroids. #2 Dyspnea secondary to above. #3 Chronic renal insufficiency, the patient is an acute on top of chronic renal insufficiency and currently she is under the care of nephrology. #4 Diabetes mellitus with steroid-induced hyperglycemia #5 Hypertension. #6 Hyperlipidemia. #7 lower extremity edema Plan: We'll obtain a follow-up chest x-ray today, she is still coughing and bronchospastic on today's exam. There is a concern about worsening renal function, and patient is complaining of increasing lower extremity edema. Nephrology is following, she may need Lasix for signs of fluid overload. Will add BNP. Echocardiogram is pending. I performed a history & physical examination of the patient and discussed their management with my nurse practitioner, Zulma Rasheed. I reviewed the nurse practitioner's note and agree with the documented findings and plan of care. Lung sounds are positive for diffuse wheezes throughout the lung grimes. The findings and the impression was discussed with the patient. I attest to the documentation by the nurse practitioner. Time with Patient: Less than 30
--- NOTE | 2019-05-08 12:49 | ECHOF ---
Referral Reason:chf MEASUREMENTS -------- HEIGHT: 157.5 cm WEIGHT: 80.3 kg BP: RVIDd: 2.4 cm (< 3.3) IVSd: 1.5 cm (0.6 - 1.1) LVIDd: 2.4 cm (3.9 - 5.3) LVPWd: 1.7 cm (0.6 - 1.1) IVSs: 2.0 cm LVIDs: 1.9 cm LVPWs: 1.7 cm LAESV Index (A-L): 30.54 ml/m Ao Diam: 2.4 cm (2.0 - 3.7) AV Cusp: 1.3 cm (1.5 - 2.6) LA Diam: 3.9 cm (2.7 - 3.8) MV EXCURSION: 13.883 mm (> 18.000) MV EF SLOPE: 65 mm/s (70 - 150) EPSS: 0.4 cm MV E Maldonado: 1.51 m/s MV DecT: 126 ms MV A Maldonado: 0.97 m/s MV E/A Ratio: 1.56 AV maxP.08 mmHg AV meanP.28 mmHg RAP: 5.00 mmHg RVSP: 55.53 mmHg TAPSE: 29.15 mm FINDINGS -------- Resting tachycardia (HR>100bpm). This was a technically good study. The left ventricular size is normal. There is severe concentric left ventricular hypertrophy. Ove rall left ventricular systolic function is normal with, an EF between 60 - 65 %. Increased LAP Grad e 2 Diastolic Dysfunction. The right ventricle is normal in size. The right ventricular systolic function is normal. LA is midly dilated 29-33ml/m2. The right atrial size is normal. Aortic valve is trileaflet and is moderately thickened. Trace amount of aortic regurgitation. Th ere is moderate aortic stenosis present. Peak/mean gradient across the Aortic Valve is 29.08mmHg / 18.28mmHg. The mitral valve is normal. The mitral valve leaflets are mildly thickened. Mild mitral regurgita tion is present. The tricuspid valve appears structurally normal. Mild tricuspid regurgitation present. There is m oderate pulmonary hypertension. The right ventricular systolic pressure, as measured by Doppler, is 55.53mmHg. There is no pulmonic regurgitation present. The aortic root size is normal. Normal inferior vena cava with normal inspiratory collapse consistent with estimated right atrial pre ssure of 5 mmHg. There is no pericardial effusion. CONCLUSIONS -------- 1. Resting tachycardia (HR>100bpm). 2. This was a technically good study. 3. The left ventricular size is normal. 4. There is severe concentric left ventricular hypertrophy. 5. Overall left ventricular systolic function is normal with, an EF between 60 - 65 %. 6. Increased LAP Grade 2 Diastolic Dysfunction. 7. The right ventricle is normal in size. 8. The right ventricular systolic function is normal. 9. LA is midly dilated 29-33ml/m2. 10. The right atrial size is normal. 11. Aortic valve is trileaflet and is moderately thickened. 12. Trace amount of aortic regurgitation. 13. There is moderate aortic stenosis present. 14. Peak/mean gradient across the Aortic Valve is 29.08mmHg / 18.28mmHg. 15. The mitral valve is normal. 16. The mitral valve leaflets are mildly thickened. 17. Mild mitral regurgitation is present. 18. The tricuspid valve appears structurally normal. 19. Mild tricuspid regurgitation present. 20. There is moderate pulmonary hypertension. 21. The right ventricular systolic pressure, as measured by Doppler, is 55.53mmHg. 22. There is no pulmonic regurgitation present. 23. The aortic root size is normal. 24. Normal inferior vena cava with normal inspiratory collapse consistent with estimated right atrial pressure of 5 mmHg. 25. There is no pericardial effusion. PURSE SEINER: Jennifer Garrido RDCS
[2019-05-08 14:52] LABS: Glucose,Whole Blood 192 mg/dL (75-99)
--- NOTE | 2019-05-08 15:50 | XR ---
EXAMINATION TYPE: XR chest 2V DATE OF EXAM: 05/08/2019 COMPARISON: Prior chest x-ray 05/04/2019 HISTORY: Shortness of breath TECHNIQUE: Frontal and lateral views of the chest are obtained. FINDINGS: There is eventration of the right hemidiaphragm as on prior. There is retrocardiac density with obscured posterior aspect of the left hemidiaphragm which is developed in the interval. The card iac silhouette size is stable, enlarged. The osseous structures are intact. Surgical clips are pres ent in the right upper quadrant. IMPRESSION: Left lower lobe atelectasis, correlate to exclude pneumonia. Cardiomegaly.
--- NOTE | 2019-05-08 15:58 | PN ---
PROGRESS NOTE Patient is seen for followup for chronic kidney disease and acute kidney injury. Patient was being diuresed. However, her Lasix was held yesterday. The serum creatinine is at 3.2 from 2.9 yesterday. Initial creatinine was 2.4. This morning patient is complaining of her diet not being appropriate. She feels she is getting significantly less food. PHYSICAL EXAMINATION: On examination today, blood pressure was 176/91 heart rate of 102 per minute. Patient is afebrile. EXAMINATION OF THE HEART: S1 and S2. EXAMINATION OF LUNGS: Bilateral breath sounds are heard. ABDOMEN: Soft, non-tender. Examination of lower extremities shows edema 1+ bilaterally. ELECTRONIC GLUER exam is grossly intact. LABS: Sodium 135, potassium 5.8, chloride 102, BUN 86, creatinine 3.2 today. ASSESSMENT: 1. Acute kidney injury, cardiorenal. Lasix was held yesterday. We can resume her diuretics, possibly tomorrow. 2. Chronic kidney disease, stage III. Baseline creatinine about 1.5 secondary to nephrosclerosis. 3. Chronic obstructive pulmonary disease exacerbation, now improved. 4. Hyperkalemia associated with acute kidney injury and hyperglycemia and metabolic acidosis, currently off of potassium supplementation, maintained on low-potassium diet, currently maintained on Diovan, as her blood pressure has been uncontrolled. If the serum potassium continues to remain elevated, we may have to discontinue the Diovan. In the meantime, I have discussed with nursing staff to maintain adequate blood sugar control. There are no nephrotoxic medications on board or medications to induce hyperkalemia. 5. Possible pneumonia, maintained on antibiotics. PLAN: Continue to hold diuretics today. Repeat labs in a.m. Agree with chest x-ray. If patient remains hyperkalemic, we may need to discontinue the Diovan. MMODL / IJN: [id number] /
[2019-05-08 17:00] LABS: Glucose,Whole Blood 159 mg/dL (75-99)
[2019-05-08 20:01] LABS: Glucose,Whole Blood 215 mg/dL (75-99)
[2019-05-08 22:09] LABS: Glucose,Whole Blood 257 mg/dL (75-99)
[2019-05-08] MEDS: ATENOLOL 25 MG TAB PO SCH (23:36)
--- NOTE | 2019-05-09 05:15 | PN ---
PROGRESS NOTE SUBJECTIVE: A 79-year-old white female with chronic renal disease, stage 3 to 4 with tracheobronchitis, pulmonary bronchospasm. She is still remains with large amount wheezing. She wants all of her IV steroids. She wants fluid restriction. She wants carb restriction stopped. She wants to get some real food. She wants to get some real care from the nurses. She is frustrated with everything. She started getting all the specialists in here. She wants to go home. I am going to try to wean her off the steroids. Take her off all her restrictions. Stop her Solu-Medrol, give her an oral prednisone. Get her moving around. Continue with antibiotics and oral steroids, insulin to scale. Stop Diovan due to hyperkalemia. Add Tenormin as when she is upset and screaming her pulses goes up to 140. beta debbie and Norvasc for hypertension. Take her off Diovan due to hyperkalemia and worsening renal failure. , I believe she is dehydrated, give her normal saline at 75 an hour. LUNGS: Show wheezes moderate, rhonchi moderate, cough is better with Tessalon Perles. HEART: S1, S2. Tachycardic. ABDOMEN: Soft. HEMATOLOGY: Shows edematous lower legs. Possible restart Lasix tomorrow. Will talk to renal physician. Possible discharge home next 24 to 48 hours. ROSSL / ENEN: [id number] /
[2019-05-09 06:59] LABS: Glucose,Whole Blood 262 mg/dL (75-99)
[2019-05-09] MEDS: SODIUM CHLORIDE 0.9% 1,000 ML IV SCH ×2 (07:23→12:21)
[2019-05-09] MEDS: INSULIN ASPART (NovoLOG) 100 UNIT/ML VIAL SQ SCH ×7 (07:34→20:54)
[2019-05-09] MEDS: PANTOPRAZOLE 40 MG TABLET PO SCH (07:35)
[2019-05-09 07:39] LABS: Basophils # (A) 0.1 k/uL (0-0.2); Basophils % (A) 1 %; Eosinophils % (A) 0 %; HCT 30.4 % (34.0-46.0); HGB 9.6 gm/dL (11.4-16.0); Lymphocytes # (A) 0.3 k/uL (1.0-4.8); Lymphocytes % (A) 3 %; MCH 28.9 pg (25.0-35.0); MCHC 31.7 g/dL (31.0-37.0); MCV 91.3 fL (80.0-100.0); Monocytes # (A) 0.4 k/uL (0-1.0); Monocytes % (A) 4 %; Neutrophils # (A) 8.8 k/uL (1.3-7.7); Neutrophils % (A) 90 %; Platelet Count 366 k/uL (150-450); RBC 3.33 m/uL (3.80-5.40); RDW 14.5 % (11.5-15.5); WBC 9.9 k/uL (3.8-10.6)
[2019-05-09 08:00] LABS: Albumin 3.2 g/dL (3.5-5.0); Calcium 8.6 mg/dL (8.4-10.2); Total Bilirubin 0.4 mg/dL (0.2-1.3); Total Protein 5.4 g/dL (6.3-8.2)
[2019-05-09 08:10] LABS: Potassium 6.2 mmol/L (3.5-5.1)
[2019-05-09] MEDS: IPRATROPIUM-ALBUTEROL 3 ML NEB INHALATION SCH ×4 (08:27→21:24)
[2019-05-09] MEDS: ATENOLOL 25 MG TAB PO SCH ×2 (09:41→20:54)
[2019-05-09] MEDS: PIOGLITAZONE 30 MG TAB PO SCH (09:43)
[2019-05-09] MEDS: amLODIPine 5 MG TAB PO SCH (09:43)
[2019-05-09] MEDS: BENZONATATE 100 MG CAP PO SCH ×3 (09:45→20:54)
[2019-05-09] MEDS: ATORVASTATIN 40 MG TAB PO SCH (09:45)
[2019-05-09] MEDS: predniSONE 20 MG TAB PO SCH ×2 (09:46→20:54)
[2019-05-09] MEDS: SODIUM BICARBONATE TAB 650 MG TAB PO SCH ×2 (09:46→20:54)
[2019-05-09] MEDS ORDERED: SODIUM POLYSTYRENE SULFONATE 15 GM/60 ML BOTTLE PO STA (09:54)
[2019-05-09] MEDS ORDERED: FUROSEMIDE 10 MG/ML 4 ML VIAL IV STA (09:55)
[2019-05-09 11:30] LABS: Glucose,Whole Blood 222 mg/dL (75-99)
[2019-05-09] MEDS: LEVOFLOXACIN 250MG-D5W PMX 250 MG in DEXTROSE/WATER 1 50ML.BAG IVPB SCH (12:20)
--- NOTE | 2019-05-09 12:23 | P.PN ---
Subjective Progress Note Date: 05/09/19 Principal diagnosis: acute tracheobronchitis, without evidence of any pneumonia, dyspnea 79-year-old female patient was hospitalized with symptoms and acute bronchitis. No clear-cut history of COPD or asthma. She is a lifetime nonsmoker. She had a similar hospitalization approximately 2 years ago when she developed taken bronchitis with reactive bronchospasm wheezing. She has been using any follow make necessary medication outpatient basis. She is known to have chronic stage III kidney disease. Creatinine approximately is out 1.5 back in general 2018. She is diabetic. She has been taken Lasix 40 mg twice a day on outpatient basis. Since admission, the patient was subjected to a combination of bronchodilators and steroids and antibiotics. Her renal functions got a worsening creatinine is up to 2.9 and diuretics has been stopped. She has developed some hyperglycemia in the blood sugars are still running high above 300. No significant sputum production. CAT scan of the chest SHOWS NO EVIDENCE OF A PNEUMONIA OR CHRONIC LUNG DISEASE. On 05/08/2019 patient is seen in follow-up on the surgical floor. Patient was able to get up and get in the shower, she still complains of coughing and wheezing, room air pulse ox is 95%, she is afebrile, hemodynamically stable, patient seems to be somewhat agitated this morning, and upset regarding the type of breakfast she got, and her infiltrated IV and about water from the tap. We'll have the hospital unit clerk speak to her. physical exam reveals bronchospastic lung sounds, and patient is complaining of increased lower extremity swelling, his labs have been reviewed, showing worsening of patient's renal profile, nephrology is following, Lasix remains on hold, CT chest on 05/06/2019 showed minimal scarring and subsegmental atelectasis at the lung bases no evidence of a pulmonary mass. On 05/09/2019 patient seen in follow-up on medical surgical floor. He sounds better on today's exam, less bronchospastic, although there are still some scattered wheezes, she states she is breathing easier, there have been no fever, no chills. Labs have been reviewed, showing no leukocytosis, low blood cell count is 9.9, hemoglobin is 9.6, serum sodium was 131, potassium is 6.2, and patient was given a dose of Kayexalate, nephrology is following, patient's renal profile is somewhat improved on today's labs, with B1 of 94 and creatinine is 2.8, IV steroids have been transitioned to oral prednisone, patient remains on room air sats of 95%, no fever, no chills, no complaints of chest pain, since echocardiogram has been reviewed showing preserved EF of 60-65%, trace aortic regurg, moderate aortic stenosis, with peak/mean gradient across the aortic valve of 29 mmHg/18.2 mmHg. Mild mitral regurgitation, and mild tricuspid regurgitation with moderate pulmonary hypertension with right-sided pressures of 55.5 mmHg. Objective - Vital Signs Vital signs: Vital Signs Temp 97.8 F 05/09/19 07:00 Pulse 90 05/09/19 08:49 Resp 15 05/09/19 07:00 BP 168/74 05/09/19 07:00 Pulse Ox 95 05/09/19 07:00 Intake & Output 05/08/19 05/09/19 05/09/19 18:59 06:59 18:59 Intake Total 267.667 200 Balance 267.667 200 Weight 80.5 kg Intake: Intake, IV Titration 27.667 Amount Insulin Regular 100 unit 27.667 In Sodium Chloride 0.9% 100 ml @ Titrate IV .Q0M DORI Rx#:[id number] Oral 240 200 Other: # Voids 1 1 - Exam GENERAL EXAM: Alert, 79-year-old white female, on room air, comfortable in no apparent distress. HEAD: Normocephalic/atraumatic. EYES: Normal reaction of pupils, equal size. Conjunctiva pink, sclera white. NOSE: Clear with pink turbinates. THROAT: No erythema or exudates. NECK: No masses, no JVD, no thyroid enlargement, no adenopathy. CHEST: No chest wall deformity. Symmetrical expansion. LUNGS: Equal air entry with scattered wheezes CVS: Regular rate and rhythm, normal S1 and S2, no gallops, positive systolic murmur, no rubs ABDOMEN: Soft, nontender. No hepatosplenomegaly, normal bowel sounds, no guard ing or rigidity. EXTREMITIES: No clubbing, mild pretibial edema, no cyanosis, 2+ pulses and upper and lower extremities. MUSCULOSKELETAL: Muscle strength and tone normal. SPINE: No scoliosis or deformity SKIN: No rashes CENTRAL NERVOUS SYSTEM: Alert and oriented -3. No focal deficits, tone is norm al in all 4 extremities. PSYCHIATRIC: Alert and oriented -3. Appropriate affect. Intact judgment and insight. - Labs CBC & Chem 7: 05/09/19 07:06 05/09/19 07:06 Labs: Abnormal Lab Results - Last 24 Hours (Table) 05/08/19 05/08/19 05/08/19 Range/Units 14:49 16:57 17:56 RBC (3.80-5.40) m/uL Hgb (11.4-16.0) gm/dL Hct (34.0-46.0) % Neutrophils # (1.3-7.7) k/uL Lymphocytes # (1.0-4.8) k/uL Sodium (137-145) mmol/L Potassium 5.6 H (3.5-5.1) mmol/L Carbon Dioxide (22-30) mmol/L BUN (7-17) mg/dL Creatinine (0.52-1.04) mg/dL Glucose (74-99) mg/dL POC Glucose (mg/dL) 192 H 159 H (75-99) mg/dL Total Protein (6.3-8.2) g/dL Albumin (3.5-5.0) g/dL 05/08/19 05/08/19 05/09/19 Range/Units 19:59 22:08 06:58 RBC (3.80-5.40) m/uL Hgb (11.4-16.0) gm/dL Hct (34.0-46.0) % Neutrophils # (1.3-7.7) k/uL Lymphocytes # (1.0-4.8) k/uL Sodium (137-145) mmol/L Potassium (3.5-5.1) mmol/L Carbon Dioxide (22-30) mmol/L BUN (7-17) mg/dL Creatinine (0.52-1.04) mg/dL Glucose (74-99) mg/dL POC Glucose (mg/dL) 215 H 257 H 262 H (75-99) mg/dL Total Protein (6.3-8.2) g/dL Albumin (3.5-5.0) g/dL 05/09/19 05/09/19 05/09/19 Range/Units 07:06 07:06 11:28 RBC 3.33 L (3.80-5.40) m/uL Hgb 9.6 L (11.4-16.0) gm/dL Hct 30.4 L (34.0-46.0) % Neutrophils # 8.8 H (1.3-7.7) k/uL Lymphocytes # 0.3 L (1.0-4.8) k/uL Sodium 131 L (137-145) mmol/L Potassium 6.2 H* (3.5-5.1) mmol/L Carbon Dioxide 20 L (22-30) mmol/L BUN 94 H (7-17) mg/dL Creatinine 2.80 H (0.52-1.04) mg/dL Glucose 241 H (74-99) mg/dL POC Glucose (mg/dL) 222 H (75-99) mg/dL Total Protein 5.4 L (6.3-8.2) g/dL Albumin 3.2 L (3.5-5.0) g/dL Assessment and Plan Plan: #1 Acute Tracheobronchitis. There is no evidence of any pneumonia. The possibility of a chronic lung disease such as COPD and asthma is possible although less likely. The patient similar episode back in 2017 and she recovered nicely. She will need a pulmonary function test following her for recovery. She is currently on a combination of bronchodilators and steroids. #2 Dyspnea secondary to above. #3 Chronic renal insufficiency, the patient is an acute on top of chronic renal insufficiency and currently she is under the care of nephrology. #4 Diabetes mellitus with steroid-induced hyperglycemia #5 Hypertension. #6 Hyperlipidemia. #7 lower extremity edema Plan: Continue current medical treatment, patient seems to be improving on today's exam, still somewhat bronchospastic, less dyspneic, renal profile is improving, hyperkalemia has been treated, nephrology is following, will continue with steroids and bronchodilators. Yesterday chest x-ray has been reviewed showing some left lower lobe atelectasis. Doubt pneumonia. Patient continues on empiric antibiotics with a combination of Rocephin and Levaquin, we can stop the Rocephin. Patient will need outpatient follow-up in the office for outpatient PFT, underlying chronic bronchial asthma is suspected. I performed a history & physical examination of the patient and discussed their management with my nurse practitioner, Zulma Wili. I reviewed the nurse practitioner's note and agree with the documented findings and plan of care. Lung sounds are positive for diffuse wheezes throughout the lung grimes. The findings and the impression was discussed with the patient. I attest to the documentation by the nurse practitioner. Time with Patient: Less than 30
--- NOTE | 2019-05-09 12:31 | PN ---
PROGRESS NOTE Patient is seen for followup for chronic kidney disease and acute kidney injury and hyperkalemia. Her serum creatinine has improved. However, potassium was noted to be 6.2 today. The Diovan was held secondary to persistent hyperkalemia. PHYSICAL EXAMINATION: On examination today, blood pressure was 168/74, heart rate 92 per minute, patient is afebrile. Examination of the heart S1, S2. Examination of the lungs, bilateral breath sounds are heard. Abdomen is soft, non-tender. Examination of lower extremities shows edema 1+ bilaterally. TITLE I DIRECTOR exam is grossly intact. LABS: Show sodium 131, potassium 6.2, chloride 102 BUN 94, creatinine 2.8, hemoglobin 9.6 g/dL. ASSESSMENT: 1. Chronic kidney disease, NKF stage III. Baseline creatinine about 1.5 secondary to nephrosclerosis. 2. Acute kidney injury mainly cardiorenal and status post recent diuresis, given the significant hyperkalemia, I will resume the Lasix. She may continue with the sodium bicarb as well. 3. Hyperkalemia associated with acute kidney injury, hyperglycemia and metabolic acidosis currently off of potassium supplements. Potassium remains elevated. Agree with discontinuation of Diovan and we will continue the low-potassium diet. I will also add loop diuretics to help with the hyperkalemia and I will give her a dose of Kayexalate today. 4. Chronic obstructive pulmonary disease exacerbation, now improved. 5. Possible pneumonia, maintained on antibiotics. PLAN: Continue off IV fluids. Resume loop diuretics. Continue off Diovan. Blood pressure remains elevated. We can continue with the Tenormin and Norvasc. I will increase the Norvasc to 10 mg and repeat labs in a.m. Continue low-potassium diet. MMODL / IJN: [id number] /
--- NOTE | 2019-05-09 15:00 | P.CRDCN ---
History of Present Illness History of present illness: HISTORY OF PRESENTING ILLNESS This is a pleasant 79-year-old female past medical history significant for COPD, diabetes mellitus, hypertension, dyslipidemia and chronic kidney dise ase. She denies prior history of coronary artery disease and does not follow with a gas leak inspector for any reason. We have been asked to see in consultation for valvular heart disease. She presented to the hospital on Wednesday of last week as a direct admit from Dr. Sarkar's office for cough, hypoxia and shortness of breath. She had been initiated on steroids and antibiotics in the outpatient setting with little to no improvement. On arrival she was noted to have acute on chronic renal failure. She is being treated for tracheobronchitis. Echocardiogram obtained revealed preserved LV systolic function with EF 60-65%, grade II diastolic dysfunction, mildly dilated LA, moderate with mean grad ient of 18 mmHg, mild MR, mild TR and moderate pulmonary hypertension with RVSP 55 mmHg. DIAGNOSTICS No EKG on admission. Chest xray on admission unremarkable, repeat yesterday showed left lower lobe atelectasis, correlate to exclude pneumonia. Chest CT reveals mild atherosclerotic vascular disease, minimal scarring of the left lung base and no evidence of pulmonary mass. VQ scan low probability for PE. Laboratory reviewed, WBC 9.9, hgb 9.6, plt 366, sodium 131, potassium 6.2, creatinine 2.8, NTproBNP 5800, lactic acid on admission 3.3 repeat on 1.7. Current cardiac medications include amlodipine/valsartan 5/320 mg daily, atorvastatin 40 mg daily and lasix 40 mg BID. REVIEW OF SYSTEMS At the time of my exam: CONSTITUTIONAL: Denies fever or chills. CARDIOVASCULAR: Denies chest pain, shortness of breath, orthopnea, PND or palpitations. RESPIRATORY: Denies cough. GASTROINTESTINAL: Denies abdominal pain, diarrhea, constipation, nausea or vomiting. MUSCULOSKELETAL: Denies myalgias. NEUROLOGIC: Denies numbness, tingling or weakness. ENDOCRINE: Denies fatigue, weight change, polydipsia or polyurina. GENITOURINARY: Denies burning, hematuria or urgency with micturation. HEMATOLOGIC: Denies history of anemia or bleeding. PHYSICAL EXAMINATION Blood pressure 146/69 heart rate 71 afebrile and maintaining oxygen saturation on room air. CONSTITUTIONAL: No apparent distress. HEENT: Head is normocephalic. Pupils are equal, round. Sclerae anicteric. Mucous membranes of the mouth are moist. No JVD. No carotid bruit. CHEST EXAMINATION: Scattered rhonchi and expiratory wheezes, no rales. No chest wall tenderness is noted on palpation or with deep breathing. HEART EXAMINATION: Regular rate and rhythm. S1, S2 heard. Systolic ejection murmur at the base, no gallops or rub. ABDOMEN: Soft, nontender. Positive bowel sounds. EXTREMITIES: 2+ peripheral pulses, no lower extremity edema and no calf tenderness. NEUROLOGIC EXAMINATION: Patient is awake, alert and oriented x3. ASSESSMENT Aortic stenosis, mild-moderate Acute hypoxic respiratory failure secondary to tracheobronchitis Acute on chronic renal failure Hyperkalemia Diabetes mellitus Hypertension Dyslipidemia PLAN Obtain baseline EKG. Ongoing medical management and treatment of underlying respiratory illness and acute kidney injury and diuretic management per nephrology. Aortic stenosis is only mild and not the etiology of her shortness of breath. Thank you kindly for this consultation. Nurse Practitioner note has been reviewed, I agree with a documented findings and plan of care. Patient was seen and examined. Past Medical History Past Medical History: COPD, Diabetes Mellitus, Hyperlipidemia, Hypertension, Osteoarthritis (OA), Renal Disease Additional Past Medical History / Comment(s): COPD, NIDDM type II, diverticulitis, lower GI bleed, bowel obstructions with surgery, ckd stage 3 History of Any Multi-Drug Resistant Organisms: None Reported Past Surgical History: Cholecystectomy, Hysterectomy, Tonsillectomy, Tubal Ligation Additional Past Surgical History / Comment(s): EGDs/colonoscopies, bowel resections due to obstruction x2, bilateral cataracts removed. Past Anesthesia/Blood Transfusion Reactions: No Reported Reaction Past Psychological History: No Psychological Hx Reported Additional Psychological History / Comment(s): Pt resides alone in an apartment. She uses no assistive device. She drives. Smoking Status: Never smoker Past Alcohol Use History: None Reported Past Drug Use History: None Reported - Past Family History Mother Family Medical History: No Reported History Additional Family Medical History / Comment(s): Mother was healthy and lived to be 79yrs old. Brother(s) Family Medical History: Diabetes Mellitus Medications and Allergies Home Medications Medication Instructions Recorded Confirmed Type Furosemide [Lasix] 40 mg PO BID 05/03/19 05/03/19 History Potassium Chloride ER [K-Dur 20] 20 meq PO DAILY 05/03/19 05/03/19 History Atorvastatin [Lipitor] 40 mg PO DAILY 05/04/19 05/04/19 History Pioglitazone [Actos] 1 tab PO DAILY 05/04/19 05/04/19 History amLODIPine/VALSARTAN [Exforge 1 tab PO DAILY 05/04/19 05/04/19 History 5-320 MG] Allergies Allergy/AdvReac Type Severity Reaction Status Date / Time Penicillins Allergy Severe Rash/Hives Verified 05/03/19 13:56 latex Allergy Unknown Rash/Hives/ Verified 05/03/19 13:56 Blisters codeine Allergy Rash/Hives Verified 05/03/19 13:56 diphenhydramine HCl Allergy Swelling Verified 05/03/19 13:56 [From Benadryl] erythromycin base Allergy Rash/Hives Verified 05/03/19 13:56 Iodinated Contrast Media Allergy Rash/Hives Verified 05/03/19 13:56 [Iodinated Contrast Media - IV Dye] iodine Allergy Rash/Hives Verified 05/03/19 13:56 Sulfa (Sulfonamide Allergy Rash/Hives Verified 05/03/19 13:56 Antibiotics) Tetanus Vaccines and Toxoid Allergy Unknown Verified 05/03/19 13:56 [Tetanus Vaccines & Toxoid] Tetracyclines Allergy Rash/Hives Verified 05/03/19 13:56 aspirin AdvReac GI Bleed Verified 05/03/19 13:56 Physical Exam Vitals: Vital Signs Temp Pulse Pulse Resp BP Pulse Ox 05/09/19 12:42 84 05/09/19 12:28 88 05/09/19 08:49 90 05/09/19 08:27 92 05/09/19 07:00 97.8 F 65 15 168/74 95 05/09/19 02:35 97.6 F 75 165/85 96 05/08/19 20:45 100 05/08/19 20:36 100 05/08/19 19:50 98.2 F 96 141/67 95 05/08/19 16:15 98 05/08/19 16:03 96 05/08/19 15:00 98.1 F 90 16 153/73 97 Intake and Output 05/08/19 05/09/19 05/09/19 22:59 06:59 14:59 Intake Total 211.267 Balance 211.267 Intake: Intake, IV Titration 11.267 Amount Insulin Regular 100 unit 11.267 In Sodium Chloride 0.9% 100 ml @ Titrate IV .Q0M [facility] Rx#:[id number] Oral 200 Other: # Voids 1 1 1 Results 05/09/19 07:06 05/09/19 07:06 Cardiac Enzymes 05/09/19 Range/Units 07:06 AST 20 (14-36) U/L CBC 05/09/19 Range/Units 07:06 WBC 9.9 (3.8-10.6) k/uL RBC 3.33 L (3.80-5.40) m/uL Hgb 9.6 L (11.4-16.0) gm/dL Hct 30.4 L (34.0-46.0) % Plt Count 366 (150-450) k/uL Comprehensive Metabolic Panel 05/08/19 05/09/19 Range/Units 17:56 07:06 Sodium 131 L (137-145) mmol/L Potassium 5.6 H 6.2 H* (3.5-5.1) mmol/L Chloride 102 (98-107) mmol/L Carbon Dioxide 20 L (22-30) mmol/L BUN 94 H (7-17) mg/dL Creatinine 2.80 H (0.52-1.04) mg/dL Glucose 241 H (74-99) mg/dL Calcium 8.6 (8.4-10.2) mg/dL AST 20 (14-36) U/L ALT 24 (4-34) U/L Alkaline Phosphatase 47 (38-126) U/L Total Protein 5.4 L (6.3-8.2) g/dL Albumin 3.2 L (3.5-5.0) g/dL Current Medications Generic Name Dose Route Start Last Admin Trade Name Freq PRN Reason Stop Dose Admin Acetaminophen 650 mg 05/03/19 15:52 05/06/19 10:32 Tylenol Tab PO 650 mg Q6HR PRN Administration Fever and/ or Pain Albuterol/Ipratropium 3 ml 05/03/19 14:24 05/06/19 01:41 Duoneb 0.5 Mg-3 Mg/3 Ml Soln INHALATION 3 ml RT-Q2H PRN Administration Shortness Of Breath Or Wheezing Albuterol/Ipratropium 3 ml 05/04/19 08:00 05/09/19 12:28 Duoneb 0.5 Mg-3 Mg/3 Ml Soln INHALATION 3 ml RT-QID DORI Administration Amlodipine Besylate 10 mg 05/10/19 09:00 Norvasc PO DAILY [facility] Atenolol 25 mg 05/08/19 23:15 05/09/19 09:41 Tenormin PO Not Given BID [facility] Atorvastatin Calcium 40 mg 05/05/19 09:00 05/09/19 09:45 Lipitor PO 40 mg DAILY [facility] Administration Benzonatate 100 mg 05/07/19 11:30 05/09/19 09:45 Tessalon Perles PO 100 mg TID [facility] Administration Furosemide 40 mg 05/10/19 09:00 Lasix PO DAILY [facility] Levofloxacin/Dextrose 250 mg/ 50 mls @ 50 mls/hr 05/07/19 12:00 05/09/19 12:20 IV Solution IVPB 50 mls/hr Q48H DORI Administration Sodium Chloride 1,000 mls @ 75 mls/hr 05/08/19 23:00 05/09/19 12:21 Saline 0.9% IV Not Given .[id number] [facility] Insulin Aspart 0 unit 05/08/19 17:30 05/09/19 12:20 Novolog SQ 3 unit ACHS [facility] Administration Protocol Insulin Aspart 5 unit 05/08/19 17:30 05/09/19 12:20 Novolog SQ 5 unit AC-TID DORI Administration Pantoprazole Sodium 40 mg 05/05/19 07:30 05/09/19 07:35 Protonix PO 40 mg AC-BRKFST DORI Administration Pioglitazone HCl 30 mg 05/04/19 15:30 05/09/19 09:43 Actos PO 30 mg DAILY [facility] Administration Prednisone 20 mg 05/09/19 09:00 05/09/19 09:46 PO 20 mg BID DORI Administration Sodium Bicarbonate 650 mg 05/06/19 10:00 05/09/19 09:46 Sodium Bicarbonate Tab PO 650 mg BID DORI Administration Intake and Output 05/08/19 05/09/19 05/09/19 22:59 06:59 14:59 Intake Total 211.267 Balance 211.267 Intake: Intake, IV Titration 11.267 Amount Insulin Regular 100 unit 11.267 In Sodium Chloride 0.9% 100 ml @ Titrate IV .Q0M [facility] Rx#:[id number] Oral 200 Other: # Voids 1 1 1 05/09/19 07:06 05/09/19 07:06
[2019-05-09 16:41] LABS: Glucose,Whole Blood 213 mg/dL (75-99)
[2019-05-09 20:37] LABS: Glucose,Whole Blood 191 mg/dL (75-99)
--- NOTE | 2019-05-09 22:14 | PN ---
PROGRESS NOTE Creatinine is down to 2.9 today. She feels much better since I gave her fluids overnight with normal saline. She was started back on her Lasix for peripheral edema and swelling in her lower extremities. We will check electrolytes in the morning and renal function. She was switched to oral prednisone and ACEs and arbs stopped due to hyperkalemia. Kayexalate was given 10 mg x1 today due to hyperkalemia. Cardiovascular: S1-S2. Lungs clear. GI soft. Hematology negative Homans. Psych: Fair mood and affect. ASSESSMENT: 1. Hyperkalemia. 2. Tracheobronchitis. 3. Bronchospasm. 4. Acute tubular necrosis. 5. Chronic renal failure 3B. Continue current treatment. Follow up in the next 24-48 hours for possible discharge as patient is slowly improving. MMODL / IJN: [id number] /
[2019-05-10 06:53] LABS: Glucose,Whole Blood 239 mg/dL (75-99)
[2019-05-10] MEDS: SODIUM CHLORIDE 0.9% 1,000 ML IV SCH ×3 (06:55→23:20)
[2019-05-10 07:20] LABS: Calcium 8.4 mg/dL (8.4-10.2); Potassium 5.7 mmol/L (3.5-5.1); Total Bilirubin 0.4 mg/dL (0.2-1.3); Total Protein 5.2 g/dL (6.3-8.2)
[2019-05-10 07:27] LABS: Basophils # (A) 0.1 k/uL (0-0.2); Basophils % (A) 1 %; Eosinophils % (A) 0 %; HCT 31.5 % (34.0-46.0); HGB 10.3 gm/dL (11.4-16.0); Lymphocytes # (A) 0.3 k/uL (1.0-4.8); Lymphocytes % (A) 3 %; MCH 29.8 pg (25.0-35.0); MCHC 32.7 g/dL (31.0-37.0); MCV 91.1 fL (80.0-100.0); Mean Platelet Volume 7.8; Monocytes # (A) 0.3 k/uL (0-1.0); Monocytes % (A) 3 %; Neutrophils # (A) 8.6 k/uL (1.3-7.7); Neutrophils % (A) 92 %; Platelet Count 364 k/uL (150-450); RBC 3.45 m/uL (3.80-5.40); RDW 14.6 % (11.5-15.5); WBC 9.4 k/uL (3.8-10.6)
[2019-05-10] MEDS: SODIUM BICARBONATE TAB 650 MG TAB PO SCH ×2 (07:58→21:51)
[2019-05-10] MEDS: PANTOPRAZOLE 40 MG TABLET PO SCH (07:58)
[2019-05-10] MEDS: predniSONE 20 MG TAB PO SCH ×2 (07:58→21:51)
[2019-05-10] MEDS: INSULIN ASPART (NovoLOG) 100 UNIT/ML VIAL SQ SCH ×7 (07:59→21:53)
[2019-05-10] MEDS: BENZONATATE 100 MG CAP PO SCH ×3 (07:59→21:51)
[2019-05-10] MEDS: ATORVASTATIN 40 MG TAB PO SCH (07:59)
[2019-05-10] MEDS: FUROSEMIDE 40 MG TAB PO SCH (07:59)
[2019-05-10] MEDS: ATENOLOL 25 MG TAB PO SCH ×2 (07:59→21:51)
[2019-05-10] MEDS: amLODIPine 10 MG TAB PO SCH (07:59)
[2019-05-10] MEDS: PIOGLITAZONE 30 MG TAB PO SCH (08:00)
[2019-05-10] MEDS: IPRATROPIUM-ALBUTEROL 3 ML NEB INHALATION SCH ×4 (08:29→21:08)
[2019-05-10 11:47] LABS: Glucose,Whole Blood 241 mg/dL (75-99)
--- NOTE | 2019-05-10 15:41 | PN ---
PROGRESS NOTE Patient was seen this morning. However, she was in the shower. Patient was upset that her renal function had worsened. Her BUN was elevated at 105. However, her serum creatinine was down to 2.69 mg/dL. Patient is also maintained on steroids, which will cause her BUN to be higher. The serum potassium still is staying at about 5.8-5.7 mEq/L. The patient could not be examined. Her blood pressure this morning was noted to be 92/53, heart rate 72 per minute. LABS: Show sodium of 134, potassium 5.7, chloride 103, BUN 105, creatinine 2.69. ASSESSMENT: 1. Acute kidney injury with improvement in renal function as creatinine has decreased to 2.69. BUN is disproportionately elevated secondary to steroids. Need to rule out underlying gastrointestinal bleed as well. I will send out stool for occult blood. Patient should continue at least with 40 mg of Lasix p.o. daily. This will help with the hyperkalemia as well. 2. Volume overload, currently somewhat improved. 3. Hyperkalemia associated with chronic kidney disease. Rule out underlying gastrointestinal bleed. 4. Anemia of chronic disease. Hemoglobin is at 10.3. PLAN: Check stool for occult blood. Continue off of IV fluids. Continue Lasix 40 mg daily p.o. and consider decreasing prednisone secondary to disproportionately elevated BUN. MMODL / IJN: [id number] /
[2019-05-10 16:39] LABS: Glucose,Whole Blood 276 mg/dL (75-99)
[2019-05-10 20:26] LABS: Glucose,Whole Blood 178 mg/dL (75-99)
--- NOTE | 2019-05-11 04:56 | PN ---
PROGRESS NOTE This is a 79-year-old white female is improving with breathing, less cough, congestion. Her BUN is 105, creatinine down to 2.69, which is improved since yesterday. Sugars in the mid 200s. Blood pressure is 130s to 140s over 60 to 70, oxygen level is 92 on room air, temp 98.4, pulse 60s to 70s, respiratory rate 16 to 20. LUNGS: Show scattered wheeze and rhonchi. HEMATOLOGY: Negative Homans. PSYCH: Better mood or affect. NEURO EXAM: Alert and oriented x3. ASSESSMENT: Acute renal injury, worsening renal function is improving since yesterday. The IV steroids have been switched to oral steroids. for occult blood. Continue with Lasix. Volume overload is improving. Anemia chronic disease. Hemoglobin is 10.3. Possible discharge home in next 24 to 48 hours. MMODL / IJN: [id number] /
[2019-05-11] MEDS: FUROSEMIDE 40 MG TAB PO SCH (06:36)
[2019-05-11 06:45] LABS: Glucose,Whole Blood 276 mg/dL (75-99)
[2019-05-11 07:03] LABS: Basophils % (A) 0 %; Eosinophils % (A) 0 %; HCT 30.1 % (34.0-46.0); HGB 9.8 gm/dL (11.4-16.0); Lymphocytes # (A) 0.3 k/uL (1.0-4.8); Lymphocytes % (A) 3 %; MCH 29.7 pg (25.0-35.0); MCHC 32.5 g/dL (31.0-37.0); MCV 91.3 fL (80.0-100.0); Mean Platelet Volume 8.1; Monocytes # (A) 0.3 k/uL (0-1.0); Monocytes % (A) 4 %; Neutrophils % (A) 92 %; Platelet Count 338 k/uL (150-450); RBC 3.29 m/uL (3.80-5.40); RDW 14.4 % (11.5-15.5); WBC 9.8 k/uL (3.8-10.6)
[2019-05-11 07:16] LABS: Albumin 3.1 g/dL (3.5-5.0); Calcium 8.2 mg/dL (8.4-10.2); Total Bilirubin 0.5 mg/dL (0.2-1.3); Total Protein 5.3 g/dL (6.3-8.2)
[2019-05-11] MEDS: ATORVASTATIN 40 MG TAB PO SCH (07:49)
[2019-05-11] MEDS: predniSONE 20 MG TAB PO SCH (07:49)
[2019-05-11] MEDS: amLODIPine 10 MG TAB PO SCH (07:49)
[2019-05-11] MEDS: SODIUM BICARBONATE TAB 650 MG TAB PO SCH (07:49)
[2019-05-11] MEDS: ATENOLOL 25 MG TAB PO SCH (07:49)
[2019-05-11] MEDS: PIOGLITAZONE 30 MG TAB PO SCH (07:50)
[2019-05-11] MEDS: BENZONATATE 100 MG CAP PO SCH ×2 (07:50→16:31)
[2019-05-11] MEDS: INSULIN ASPART (NovoLOG) 100 UNIT/ML VIAL SQ SCH ×4 (07:50→12:04)
[2019-05-11] MEDS: PANTOPRAZOLE 40 MG TABLET PO SCH (07:50)
[2019-05-11] MEDS: IPRATROPIUM-ALBUTEROL 3 ML NEB INHALATION SCH ×3 (10:14→16:40)
[2019-05-11 11:46] LABS: Glucose,Whole Blood 305 mg/dL (75-99)
[2019-05-11] MEDS ORDERED: LEVOFLOXACIN 250 MG TAB PO SCH (12:00)
[2019-05-11 15:44] VITALS: BP 145/73; PULSE 62; RESP 16; TEMP 98.6
--- NOTE | 2019-05-11 15:45 | P.DS ---
Providers Date of admission: 05/03/19 11:57 Expected date of discharge: 05/11/19 Attending physician: Alexander Sarkar Consults: 05/04/19 14:47 Consult Physician Routine Consulting Provider: Eliza Fontana Consult Reason/Comments: renal insufficiency Do you want consulting provider notified?: Yes 05/07/19 11:11 Consult Physician Routine Consulting Provider: Pan Rodriguez Consult Reason/Comments: copd/tracheobronchitis Do you want consulting provider notified?: Yes 05/08/19 15:57 Consult Physician Routine Consulting Provider: Zaire Collier Consult Reason/Comments: valvular heart dz Do you want consulting provider notified?: Yes, Notify in am 05/08/19 16:26 Consult Physician Routine Consulting Provider: Chema Coronel Consult Reason/Comments: as,pulm htn Do you want consulting provider notified?: Yes Primary care physician: [facility] Hospital Course: Final Diagnoses: - Acute Tracheobronchitis. No pneumonia as per pulmonary. -Possible acute COPD exacerbation. -Acute on chronic renal failure, stage IV -Anemia of chronic disease - Diabetes mellitus with steroid-induced hyperglycemia -Hypertension. -Hyperlipidemia. Hospital course: This a 75-year-old female admitted with dyspnea, acute tracheobronchitis, acute renal failure and multiple other medical issues. Evaluated by nephrology, cardiology, pulmonary. Please refer to H&P and consult notes for specific details. Significant clinical improvement. Cleared for discharge by cardiology, pulmonary. Patient will be discharged home in a stable condition with fair prognosis pending nephrology clearance. EXAM: GEN: Alert and oriented 3, no acute distress CV: Regular S1, S2, positive systolic murmur LUNGS: Essentially clear to auscultation, occasional expiratory scattered wheeze ABD: Soft, nontender, positive bowel sounds NEURO: No focal deficits The impression and plan of care has been dictated as directed. : I performed a history and examination of this patient, discussed the same with the dictator. I agree with the dictator's note ,documented as a scribe. Any additional findings or plans will be noted. Patient Condition at Discharge: Stable Plan - Discharge Summary Discharge Rx Participant: Yes New Discharge Prescriptions: New Levofloxacin [Levaquin] 250 mg PO Q48H #5 tab Pantoprazole [Protonix] 40 mg PO AC-BRKFST #30 tablet. Sodium Bicarbonate Tab 650 mg PO BID #20 tab amLODIPine [Norvasc] 10 mg PO DAILY #30 tab predniSONE 10 mg PO DIRECTED #18 tab Atenolol [Tenormin] 25 mg PO BID #30 tab Continue Potassium Chloride ER [K-Dur 20] 20 meq PO DAILY Pioglitazone [Actos] 1 tab PO DAILY Atorvastatin [Lipitor] 40 mg PO DAILY Changed Furosemide [Lasix] 40 mg PO DAILY #0 Discontinued amLODIPine/VALSARTAN [Exforge 5-320 MG] 1 tab PO DAILY Discharge Medication List Potassium Chloride ER [K-Dur 20] 20 meq PO DAILY 05/03/19 [History] Atorvastatin [Lipitor] 40 mg PO DAILY 05/04/19 [History] Pioglitazone [Actos] 1 tab PO DAILY 05/04/19 [History] Atenolol [Tenormin] 25 mg PO BID #30 tab 05/11/19 [Rx] Furosemide [Lasix] 40 mg PO DAILY #0 05/11/19 [Rx] Levofloxacin [Levaquin] 250 mg PO Q48H #5 tab 05/11/19 [Rx] Pantoprazole [Protonix] 40 mg PO AC-BRKFST #30 tablet. 05/11/19 [Rx] Sodium Bicarbonate Tab 650 mg PO BID #20 tab 05/11/19 [Rx] amLODIPine [Norvasc] 10 mg PO DAILY #30 tab 05/11/19 [Rx] predniSONE 10 mg PO DIRECTED #18 tab 05/11/19 [Rx] Follow up Appointment(s)/Referral(s): Eliza Fontana MD [STAFF PHYSICIAN] - 05/17/19 2:00 pm Alexander Sarkar MD [Primary Care Provider] - 3 Days Pan Rodriguez MD [STAFF PHYSICIAN] - 05/29/19 3:00 pm (With kendall ) Trisha Russell MD [STAFF PHYSICIAN] - 2 Weeks Ambulatory/Diagnostic Orders: Complete Blood Count w/diff [LAB.AMB] Time Frame: 3 Days, Location: None Selected
--- NOTE | 2019-05-11 15:57 | PN ---
PROGRESS NOTE Patient is seen for followup for chronic kidney disease and acute kidney injury. Her creatinine has decreased over the last 3 days. However, BUN is disproportionately elevated. Patient received a dose of IV Lasix 2 days ago and is maintained on oral Lasix 40 mg daily. Volume status has improved. This is also helping with the hyperkalemia. The patient is maintained on steroids for COPD exacerbation. She states she continues to feel congested and has a cough with wheezing. PHYSICAL EXAMINATION: On examination today, blood pressure was 150/72, heart rate 68 per minute. She is afebrile. EXAMINATION OF THE HEART: S1 and S2. EXAMINATION OF LUNGS: Decreased breath sounds at bases. ABDOMEN: Soft, non-tender. Examination of lower extremities shows trace edema bilaterally. [employer]INEERING [employer]ER exam is grossly intact. LABS: Sodium 134, potassium 5.0, chloride 103. CO2 is 21, BUN 112, creatinine 2.7. ASSESSMENT: 1. Acute kidney injury, cardiorenal, with serum creatinine slightly better, down from 3.2 to 2.6 and 2.7 for the last couple of days. BUN is disproportionately elevated secondary to steroids. Consider GI bleed, given the anemia. However, stool for occult blood has been ordered and there is no active bleeding noted. I will hold the p.o. Lasix dose tomorrow. However, it has helped with the hyperkalemia. 2. Hyperkalemia associated with chronic kidney disease, maintained on sodium bicarb and oral Lasix along with potassium restriction and diet. Currently improved. However, blood sugars remain elevated, which will contribute to the hyperkalemia as well. 3. Tracheobronchitis, maintained on updraft treatments and steroids with consideration for possible underlying chronic obstructive pulmonary disease; being followed by Pulmonology. 4. Type 2 diabetes. 5. Hyperglycemia associated with steroids. 6. Volume overload, now improved. PLAN: Hold Lasix in a.m. Continue low-potassium diet. Follow up with Pulmonology. Check chest x-ray. At this time, I believe her volume status has improved and is most likely not contributing significantly to her ongoing dyspnea. She is maintained on steroids and updraft treatments. MMODL / IJN: [id number] /
== END 2019-05-11 17:44 | disposition home or self-care (01) | DRG 190 ==
LOC: 4SSUR 11:57
PROVIDERS: ADMIT Family Medicine; ATTEND Family Medicine
DX: J44.0 Chronic obstructive pulmonary disease with (acute) lower respiratory infection (principal); J96.01 Acute respiratory failure with hypoxia; N17.0 Acute kidney failure with tubular necrosis; N18.4 Chronic kidney disease, stage 4 (severe); E87.1 Hypo-osmolality and hyponatremia; E87.2 Acidosis; J98.11 Atelectasis; J44.1 Chronic obstructive pulmonary disease with (acute) exacerbation; I27.20 Pulmonary hypertension, unspecified; E11.22 Type 2 diabetes mellitus with diabetic chronic kidney disease; D63.1 Anemia in chronic kidney disease; J20.9 Acute bronchitis, unspecified; E66.9 Obesity, unspecified; I12.9 Hypertensive chronic kidney disease with stage 1 through stage 4 chronic kidney disease, or unspecified chronic kidney disease; E78.5 Hyperlipidemia, unspecified; T50.2X5A Adverse effect of carbonic-anhydrase inhibitors, benzothiadiazides and other diuretics, initial encounter; E11.65 Type 2 diabetes mellitus with hyperglycemia; T38.0X5A Adverse effect of glucocorticoids and synthetic analogues, initial encounter; I08.3 Combined rheumatic disorders of mitral, aortic and tricuspid valves; E87.5 Hyperkalemia; E86.0 Dehydration; E87.70 Fluid overload, unspecified; M19.90 Unspecified osteoarthritis, unspecified site; Z68.32 Body mass index [BMI] 32.0-32.9, adult; Z79.84 Long term (current) use of oral hypoglycemic drugs; Z79.899 Other long term (current) drug therapy; Z90.710 Acquired absence of both cervix and uterus; Z90.49 Acquired absence of other specified parts of digestive tract; Z98.890 Other specified postprocedural states; Z87.19 Personal history of other diseases of the digestive system; Z98.42 Cataract extraction status, left eye; Z98.41 Cataract extraction status, right eye; Z88.5 Allergy status to narcotic agent; Z88.0 Allergy status to penicillin; Z88.2 Allergy status to sulfonamides; Z88.7 Allergy status to serum and vaccine; Z88.8 Allergy status to other drugs, medicaments and biological substances; Z91.041 Radiographic dye allergy status; Z88.1 Allergy status to other antibiotic agents; Z91.040 Latex allergy status; Z83.3 Family history of diabetes mellitus
CPT/HCPCS: 71046; 71250; 76770; 78582; 80048; 80053; 81003; 83036; 83605; 83735; 83880; 83930; 83935; 84132; 84300; 85025; 85379; 87502; 93005; 93306; 94640; 94760

== ENCOUNTER 2019-05-23 11:55 | Inpatient (IN) | payer MEDICARE, OTHER ==
[2019-05-23] MEDS ORDERED: IPRATROPIUM-ALBUTEROL 3 ML NEB INHALATION PRN (13:45)
[2019-05-23 14:33] LABS: Basophils % (A) 0 %; Eosinophils # (A) 0.1 k/uL (0-0.7); Eosinophils % (A) 2 %; HCT 31.8 % (34.0-46.0); HGB 10.5 gm/dL (11.4-16.0); Lymphocytes # (A) 0.5 k/uL (1.0-4.8); Lymphocytes % (A) 7 %; MCH 29.6 pg (25.0-35.0); MCV 89.7 fL (80.0-100.0); Mean Platelet Volume 8.8; Monocytes # (A) 0.3 k/uL (0-1.0); Monocytes % (A) 4 %; Neutrophils % (A) 87 %; Platelet Count 191 k/uL (150-450); RBC 3.54 m/uL (3.80-5.40); RDW 15.1 % (11.5-15.5); WBC 6.9 k/uL (3.8-10.6)
[2019-05-23 14:43] LABS: Albumin 3.5 g/dL (3.5-5.0); Calcium 8.3 mg/dL (8.4-10.2); Potassium 5.1 mmol/L (3.5-5.1); Total Bilirubin 1.1 mg/dL (0.2-1.3); Total Protein 5.8 g/dL (6.3-8.2)
[2019-05-23] MEDS: IPRATROPIUM-ALBUTEROL 3 ML NEB INHALATION SCH ×2 (15:38→19:21)
[2019-05-23] MEDS: SODIUM CHLORIDE 0.9% 1,000 ML IV SCH (15:50)
[2019-05-23] MEDS: FUROSEMIDE 40 MG TAB PO SCH (15:50)
--- NOTE | 2019-05-23 16:07 | XR ---
EXAMINATION TYPE: XR chest 2V DATE OF EXAM: 05/23/2019 COMPARISON: Prior chest x-ray 05/08/[address] 05/06/2019 HISTORY: Hypoxia TECHNIQUE: Frontal and lateral views of the chest are obtained. FINDINGS: Heart is enlarged. Probable subsegmental basilar atelectatic changes are present. No evide nt pneumothorax. Aorta is dense. No evident pleural effusion. Prominent lung volumes and lidocaine he midiaphragms may be indicative of underlying COPD. Surgical clips present right upper quadrant. Thora cic spondylosis is present. There are overlying artifacts. IMPRESSION: Cardiomegaly, correlate for COPD, probable subsegmental basilar atelectatic changes
--- NOTE | 2019-05-23 16:52 | P.CNPUL ---
History of Present Illness Consult date: 05/23/19 Requesting physician: Alexander Sarkar Reason for consult: dyspnea Chief complaint: Shortness of breath, weakness History of present illness: 79-year-old white female patient of Dr. Alexander Sarkar, with past medical history of hypertension, hyperlipidemia, osteoarthritis, diabetes mellitus type 2, chronic kidney disease stage III, lifetime nonsmoker, chronic congestive heart failure with diastolic dysfunction with EF between 60-65%, moderate aortic stenosis, mild MR, mild TR, moderate pulmonary hypertension with right-sided pressures of 55 mmHg. Patient was recently hospitalized in early April for shortness of breath related to acute tracheobronchitis. Patient was managed with IV steroids, nebulized bronchodilators. Patient also had worsening of her renal function during that admission related to diuretic therapy, she follows with Dr. Fontana for her history of CK-MB, she clinically improved and was discharged home. On 05/23/2019 patient presented to her PCPs office with complaints of worsening dyspnea, fatigue, exertional dyspnea and orthopnea, she denies any chest pain, denies any fever or chills, she states she has no appetite, but no nausea vomiting or diarrhea. She states she can hardly get dressed because she is so fatigued and weak. She denies any weight gain, howev er she has significant amount of lower extremity edema 2+ pitting edema. Chest x-ray was obtained, showing cardiomegaly, and probable subsegmental basilar atelectatic changes. No acute pulmonary process, lab work showed a white blood cell count is 6.9, hemoglobin of 10.5, sodium is 131, the rest of the electrolytes were within normal limits, BUN 62, creatinine is 2.23 glucose was 323, proBNP was 8840. Room air pulse ox is 91%, patient is afebrile, hemodynamically patient is stable. D-dimer and troponins are pending, patient has some end expiratory wheezes, no significant cough or congestion. Breathing treatments have been started. Review of Systems All systems: negative Constitutional: Reports sweats, Denies chills, Denies fever Eyes: denies blurred vision, denies pain Ears, nose, mouth and throat: Denies headache, Denies sore throat Cardiovascular: Reports dyspnea on exertion, Reports edema, Reports leg edema, Reports orthopnea, Reports shortness of breath, Denies chest pain Respiratory: Reports dyspnea, Denies cough Gastrointestinal: Denies abdominal pain, Denies diarrhea, Denies nausea, Denies vomiting Genitourinary: Denies dysuria, Denies hematuria Musculoskeletal: Denies myalgias Integumentary: Denies pruritus, Denies rash Neurological: Denies numbness, Denies weakness Psychiatric: Denies anxiety, Denies depression Endocrine: Denies fatigue, Denies weight change Past Medical History Past Medical History: COPD, Diabetes Mellitus, Hyperlipidemia, Hypertension, Osteoarthritis (OA), Pneumonia, Renal Disease Additional Past Medical History / Comment(s): COPD, NIDDM type II, diverticulitis, lower GI bleed, bowel obstructions with surgery, ckd stage 3 History of Any Multi-Drug Resistant Organisms: None Reported Past Surgical History: Cholecystectomy, Hysterectomy, Tonsillectomy, Tubal Ligation Additional Past Surgical History / Comment(s): EGDs/colonoscopies, bowel resections due to obstruction x2, bilateral cataracts removed. Past Anesthesia/Blood Transfusion Reactions: No Reported Reaction Past Psychological History: No Psychological Hx Reported Additional Psychological History / Comment(s): Pt resides alone in an apartment. She uses no assistive device. She drives. Smoking Status: Never smoker Past Alcohol Use History: None Reported Past Drug Use History: None Reported - Past Family History Mother Family Medical History: No Reported History Additional Family Medical History / Comment(s): Mother was healthy and lived to be 79yrs old. Brother(s) Family Medical History: Diabetes Mellitus Medications and Allergies Home Medications Medication Instructions Recorded Confirmed Type Potassium Chloride ER [K-Dur 20] 20 meq PO DAILY 05/03/19 05/23/19 History Atorvastatin [Lipitor] 40 mg PO DAILY 05/04/19 05/23/19 History Pioglitazone [Actos] 30 mg PO DAILY 05/04/19 05/23/19 History Atenolol [Tenormin] 25 mg PO BID #30 tab 05/11/19 05/23/19 Rx Pantoprazole [Protonix] 40 mg PO ASTRID-CAMIKFSRobert #30 isidro. 05/11/19 05/23/19 Rx Sodium Bicarbonate Tab 650 mg PO BID #20 tab 05/11/19 05/23/19 Rx amLODIPine [Norvasc] 10 mg PO DAILY #30 tab 05/11/19 05/23/19 Rx Albuterol Nebulized [Ventolin 2.5 mg INHALATION RT-TID PRN 05/23/19 05/23/19 History Nebulized] Benzonatate [Tessalon Perles] 100 mg PO TID PRN 05/23/19 05/23/19 History Furosemide [Lasix] 40 mg PO AC-BID 05/23/19 05/23/19 History Allergies Allergy/AdvReac Type Severity Reaction Status Date / Time Penicillins Allergy Severe Rash/Hives Verified 05/23/19 14:04 latex Allergy Unknown Rash/Hives/ Verified 05/23/19 14:04 Blisters codeine Allergy Rash/Hives Verified 05/23/19 14:04 diphenhydramine HCl Allergy Swelling Verified 05/23/19 14:04 [From Benadryl] erythromycin base Allergy Rash/Hives Verified 05/23/19 14:04 Iodinated Contrast Media Allergy Rash/Hives Verified 05/23/19 14:04 [Iodinated Contrast Media - IV Dye] iodine Allergy Rash/Hives Verified 05/23/19 14:04 Sulfa (Sulfonamide Allergy Rash/Hives Verified 05/23/19 14:04 Antibiotics) Tetanus Vaccines and Toxoid Allergy Unknown Verified 05/23/19 14:04 [Tetanus Vaccines & Toxoid] Tetracyclines Allergy Rash/Hives Verified 05/23/19 14:04 aspirin AdvReac GI Bleed Verified 05/23/19 14:04 Physical Exam Vitals: Vital Signs Temp Pulse Pulse Resp BP Pulse Ox 05/23/19 15:48 68 16 05/23/19 15:38 68 16 05/23/19 13:30 98.0 F 71 16 145/71 91 L Intake and Output 05/23/19 05/23/19 05/23/19 06:59 14:59 22:59 Other: Weight 84 kg GENERAL EXAM: Alert, very pleasant, 79-year-old white female, speaks with a [place] accent room air pulse ox is 91% comfortable in no apparent distress. HEAD: Normocephalic/atraumatic. EYES: Normal reaction of pupils, equal size. Conjunctiva pink, sclera white. NOSE: Clear with pink turbinates. THROAT: No erythema or exudates. NECK: No masses, no JVD, no thyroid enlargement, no adenopathy. CHEST: No chest wall deformity. Symmetrical expansion. LUNGS: Diminished air entry with end expiratory wheezes CVS: Regular rate and rhythm, normal S1 and S2, no gallops, no murmurs, no rubs ABDOMEN: Soft, nontender. No hepatosplenomegaly, normal bowel sounds, no guarding or rigidity. EXTREMITIES: No clubbing, significant lower extremity edema no cyanosis, 2+ pulses and upper and lower extremities. MUSCULOSKELETAL: Muscle strength and tone normal. SPINE: No scoliosis or deformity SKIN: No rashes CENTRAL NERVOUS SYSTEM: Alert and oriented -3. No focal deficits, tone is nor mal in all 4 extremities. PSYCHIATRIC: Alert and oriented -3. Appropriate affect. Intact judgment and insight. Results - Laboratory Findings CBC and BMP: 05/23/19 14:20 05/23/19 14:20 Abnormal lab findings: Abnormal Labs 05/23/19 05/23/19 14:20 14:20 RBC 3.54 L Hgb 10.5 L Hct 31.8 L Lymphocytes # 0.5 L Sodium 131 L BUN 62 H Creatinine 2.23 H Glucose 323 H Calcium 8.3 L ALT 37 H Total Protein 5.8 L - Diagnostic Findings Chest x-ray: report reviewed, image reviewed Assessment and Plan Plan: Assessment: #1. Acute dyspnea related to acute exacerbation of diastolic congestive heart failure #2. Recent hospitalization for acute tracheobronchitis #3. Suspect underlying bronchial asthma, however patient has not been following up in the outpatient clinic for outpatient PFT #4. Moderate aortic stenosis #5. Chronic congestive heart failure with diastolic dysfunction and EF of 60- 65% #6. Diabetes mellitus type 2, poorly controlled #7. Chronic kidney disease stage III #8. Lifetime nonsmoker #9. History of diverticulitis #10. History of bowel obstruction with surgical repair #11. Hypertension #12. Hyperlipidemia #13. Lower extremity edema Plan: We'll decrease IV fluids to 10 ML per hour, continue oral dose Lasix, patient is on room air, chest x-ray did not show any acute pulmonary process, troponin and EKG as well as a d-dimer are pending. Continue nebulized bronchodilators, we'll hold off on IV steroids in view of patient's hyperglycemia, and having recently completed a course of steroids. No fever or chills, no cough or congestion, no evidence of leukocytosis. We will continue to follow. I performed a history & physical examination of the patient and discussed their management with my nurse practitioner, Zulma Rasheed. I reviewed the nurse practitioner's note and agree with the documented findings and plan of care. Lung sounds are positive for diminished breath sounds with end expiratory wheezing. The findings and the impression was discussed with the patient. I attest to the documentation by the nurse practitioner. Time with Patient: Greater than 30
[2019-05-23 17:09] LABS: Glucose,Whole Blood 315 mg/dL (75-99)
[2019-05-23] MEDS ORDERED: FUROSEMIDE 40 MG TAB PO SCH (17:30)
[2019-05-23] MEDS: INSULIN ASPART (NovoLOG) 100 UNIT/ML VIAL SQ SCH ×2 (17:49→22:23)
[2019-05-23] MEDS: SODIUM BICARBONATE TAB 650 MG TAB PO SCH (19:32)
[2019-05-23] MEDS: ATENOLOL 25 MG TAB PO SCH (19:32)
[2019-05-23 20:27] LABS: Glucose,Whole Blood 172 mg/dL (75-99)
[2019-05-23 22:06] LABS: Glucose,Whole Blood 162 mg/dL (75-99)
[2019-05-24 07:13] LABS: Glucose,Whole Blood 180 mg/dL (75-99)
[2019-05-24] MEDS: IPRATROPIUM-ALBUTEROL 3 ML NEB INHALATION SCH ×4 (08:21→21:40)
[2019-05-24] MEDS: ATENOLOL 25 MG TAB PO SCH ×2 (08:52→21:06)
[2019-05-24] MEDS: PANTOPRAZOLE 40 MG TABLET PO SCH (08:52)
[2019-05-24] MEDS: POTASSIUM CHLORIDE ER 20 MEQ TAB.ER PO SCH (08:52)
[2019-05-24] MEDS: SODIUM BICARBONATE TAB 650 MG TAB PO SCH ×2 (08:52→21:06)
[2019-05-24] MEDS: amLODIPine 10 MG TAB PO SCH (08:52)
[2019-05-24] MEDS: FUROSEMIDE 40 MG TAB PO SCH ×2 (08:52→09:01)
[2019-05-24] MEDS: PIOGLITAZONE 30 MG TAB PO SCH (08:53)
[2019-05-24] MEDS: ATORVASTATIN 40 MG TAB PO SCH (08:53)
[2019-05-24] MEDS: INSULIN ASPART (NovoLOG) 100 UNIT/ML VIAL SQ SCH ×4 (08:53→21:10)
[2019-05-24] MEDS: FUROSEMIDE 10 MG/ML 10 ML VIAL IV SCH ×2 (10:00→21:06)
[2019-05-24] MEDS: hydrALAZINE HCL 50 MG TAB PO SCH ×3 (10:00→21:10)
[2019-05-24] MEDS: ISOSORBIDE MONONITRATE ER 30 MG TAB.ER.24H PO SCH (11:24)
[2019-05-24] MEDS: SODIUM CHLORIDE 0.9% 1,000 ML IV SCH (11:25)
--- NOTE | 2019-05-24 11:36 | P.CRDCN ---
History of Present Illness History of present illness: HISTORY OF PRESENTING ILLNESS This is a pleasant 79-year-old female past medical history significant for COPD, diabetes mellitus, hypertension, chronic kidney disease, chronic [place] heart failure, pulmonary hypertension and aortic stenosis. She denies prior history of coronary artery disease and does not follow in the office with a tilt tray driver. We have been asked to see in consultation for elevated troponin. She was sent in as a direct admit from her PCP. She is seen and examined sitting up in bed in no acute distress. She states she has been feeling increasingly short of breath, weak, fatigued, lower extremity edema and having orthopnea. She was recently admitted in the hospital with tracheobronchitis and had adjustments made to her diuretics due to worsening renal function. She is concerned regarding her renal function and is unaware of having this issue in the past. Review of her records indicate her creatinine has been chronically elevated since 2014. She denies chest pain, dizziness or palpitations. Echocardiogram obtained 05/09/2019 reveals preserved LV systolic function with ejection fraction 60-65%, severe concentric LVH, grade 2 diastolic dysfunction, mildly dilated left atrium, moderate aortic stenosis with a mean gradient of 18 mmHg, mild MR, mild TR and moderate pulmonary hypertension with an RVSP of 55 mmHg. During her last admission she was non-compliant with medications and refusing to take certain medications or have her blood drawn. DIAGNOSTICS EKG reveals sinus mechansim with no acute ST or T-wave changes. Chest xray cardiomegaly, subsegmental basilar atelectasis and COPD. Laboratory reviewed, troponin 0.039, 0.036 and 0.038, WBC 6.9, hgb 10.5, plt 191, sodium 131, potassium 5.1, creatinine 2.23, NTpro BNP 8840 and d-dimer 3 .14. Current cardiac medications include atenolol 25 mg BID, atorvastatin 40 mg daily, lasix 40 mg BID and amlodipine 10 mg daily. REVIEW OF SYSTEMS At the time of my exam: CONSTITUTIONAL: Denies fever or chills. CARDIOVASCULAR: Complains of shortness of breath and orthopnea. Denies chest pain, PND or palpitations. RESPIRATORY: Denies cough. GASTROINTESTINAL: Denies abdominal pain, diarrhea, constipation, nausea or vomiting. MUSCULOSKELETAL: Denies myalgias. NEUROLOGIC: Denies numbness, tingling or weakness. ENDOCRINE: Denies fatigue, weight change, polydipsia or polyurina. GENITOURINARY: Denies burning, hematuria or urgency with micturation. HEMATOLOGIC: Denies history of anemia or bleeding. PHYSICAL EXAMINATION Blood pressure 150/70 heart rate 72 afebrile and maintaining oxygen saturation on nasal cannula. CONSTITUTIONAL: No apparent distress. HEENT: Head is normocephalic. Pupils are equal, round. Sclerae anicteric. Mucous membranes of the mouth are moist. JVD is evident bilaterally. No carotid bruit. CHEST EXAMINATION: Lungs are clear to auscultation. No chest wall tenderness is noted on palpation or with deep breathing. HEART EXAMINATION: Regular rate and rhythm. S1, S2 heard. Systolic ejection murmur at the base, no gallops or rub. ABDOMEN: Soft, nontender. Positive bowel sounds. EXTREMITIES: 2+ peripheral pulses, 2+ bilateral lower extremity pitting edema and no calf tenderness. NEUROLOGIC EXAMINATION: Patient is awake, alert and oriented x3. ASSESSMENT Acute on chronic diastolic heart failure Hypertension, uncontrolled Acute on chronic renal failure Elevated troponin secondary to chronic renal failure. Enzymes are flat and not suggestive of an acute event. Diabetes mellitus Valvular heart disease Pulmonary hypertension COPD PLAN Change lasix to 60 mg IV BID. Initiate hydralazine 50 mg TID and imdur 30 mg daily for blood pressure control. Follow renal function and electrolytes in the morning. Advised her of strict compliance with this regimen in order to improve her blood pressure and remove excess fluid. She verbalized understanding and is in agreement. Further recommendations to follow based on clinical course. Thank you kindly for this consultation. Nurse Practitioner note has been reviewed, I agree with a documented findings and plan of care. Patient was seen and examined. Past Medical History Past Medical History: COPD, Diabetes Mellitus, Hyperlipidemia, Hypertension, Osteoarthritis (OA), Pneumonia, Renal Disease Additional Past Medical History / Comment(s): COPD, NIDDM type II, diverticulitis, lower GI bleed, bowel obstructions with surgery, ckd stage 3 History of Any Multi-Drug Resistant Organisms: None Reported Past Surgical History: Cholecystectomy, Hysterectomy, Tonsillectomy, Tubal Ligation Additional Past Surgical History / Comment(s): EGDs/colonoscopies, bowel resecti ons due to obstruction x2, bilateral cataracts removed. Past Anesthesia/Blood Transfusion Reactions: No Reported Reaction Past Psychological History: No Psychological Hx Reported Additional Psychological History / Comment(s): Pt resides alone in an apartment. She uses no assistive device. She drives. Smoking Status: Never smoker Past Alcohol Use History: None Reported Past Drug Use History: None Reported - Past Family History Mother Family Medical History: No Reported History Additional Family Medical History / Comment(s): Mother was healthy and lived to be 79yrs old. Brother(s) Family Medical History: Diabetes Mellitus Medications and Allergies Home Medications Medication Instructions Recorded Confirmed Type Potassium Chloride ER [K-Dur 20] 20 meq PO DAILY 05/03/19 05/23/19 History Atorvastatin [Lipitor] 40 mg PO DAILY 05/04/19 05/23/19 History Pioglitazone [Actos] 30 mg PO DAILY 05/04/19 05/23/19 History Atenolol [Tenormin] 25 mg PO BID #30 tab 05/11/19 05/23/19 Rx Pantoprazole [Protonix] 40 mg PO AC-BRKFST #30 tablet.dr 05/11/19 05/23/19 Rx Sodium Bicarbonate Tab 650 mg PO BID #20 tab 05/11/19 05/23/19 Rx amLODIPine [Norvasc] 10 mg PO DAILY #30 tab 05/11/19 05/23/19 Rx Albuterol Nebulized [Ventolin 2.5 mg INHALATION RT-TID PRN 05/23/19 05/23/19 His tory Nebulized] Benzonatate [Tessalon Perles] 100 mg PO TID PRN 05/23/19 05/23/19 History Furosemide [Lasix] 40 mg PO AC-BID 05/23/19 05/23/19 History Allergies Allergy/AdvReac Type Severity Reaction Status Date / Time Penicillins Allergy Severe Rash/Hives Verified 05/23/19 14:04 latex Allergy Unknown Rash/Hives/ Verified 05/23/19 14:04 Blisters codeine Allergy Rash/Hives Verified 05/23/19 14:04 diphenhydramine HCl Allergy Swelling Verified 05/23/19 14:04 [From Benadryl] erythromycin base Allergy Rash/Hives Verified 05/23/19 14:04 Iodinated Contrast Media Allergy Rash/Hives Verified 05/23/19 14:04 [Iodinated Contrast Media - IV Dye] iodine Allergy Rash/Hives Verified 05/23/19 14:04 Sulfa (Sulfonamide Allergy Rash/Hives Verified 05/23/19 14:04 Antibiotics) Tetanus Vaccines and Toxoid Allergy Unknown Verified 05/23/19 14:04 [Tetanus Vaccines & Toxoid] Tetracyclines Allergy Rash/Hives Verified 05/23/19 14:04 aspirin AdvReac GI Bleed Verified 05/23/19 14:04 Physical Exam Vitals: Vital Signs Temp Pulse Pulse Resp BP Pulse Ox 05/24/19 08:33 72 05/24/19 08:21 68 05/24/19 05:00 97.0 F L 68 20 150/70 91 L 05/23/19 21:00 97.7 F 74 20 161/78 98 05/23/19 19:34 75 16 05/23/19 19:21 73 16 05/23/19 15:48 68 16 05/23/19 15:38 68 16 05/23/19 13:30 98.0 F 71 16 145/71 91 L Intake and Output 05/23/19 05/24/19 05/24/19 22:59 06:59 14:59 Intake Total 250 300 Balance 250 300 Intake: Oral 250 300 Other: Voiding Method Toilet # Voids 1 2 Results 05/23/19 14:20 05/23/19 14:20 Cardiac Enzymes 05/23/19 05/23/19 05/23/19 Range/Units 14:20 16:51 22:44 AST 17 (14-36) U/L Troponin I 0.039 H* 0.038 H* (0.000-0.034) ng/mL 05/24/19 Range/Units 05:19 AST (14-36) U/L Troponin I 0.036 H* (0.000-0.034) ng/mL CBC 05/23/19 Range/Units 14:20 WBC 6.9 (3.8-10.6) k/uL RBC 3.54 L (3.80-5.40) m/uL Hgb 10.5 L (11.4-16.0) gm/dL Hct 31.8 L (34.0-46.0) % Plt Count 191 (150-450) k/uL Comprehensive Metabolic Panel 05/23/19 Range/Units 14:20 Sodium 131 L (137-145) mmol/L Potassium 5.1 (3.5-5.1) mmol/L Chloride 100 (98-107) mmol/L Carbon Dioxide 22 (22-30) mmol/L BUN 62 H (7-17) mg/dL Creatinine 2.23 H (0.52-1.04) mg/dL Glucose 323 H (74-99) mg/dL Calcium 8.3 L (8.4-10.2) mg/dL AST 17 (14-36) U/L ALT 37 H (4-34) U/L Alkaline Phosphatase 72 (38-126) U/L Total Protein 5.8 L (6.3-8.2) g/dL Albumin 3.5 (3.5-5.0) g/dL Current Medications Generic Name Dose Route Start Last Admin Trade Name Freq PRN Reason Stop Dose Admin Albuterol/Ipratropium 3 ml 05/23/19 16:00 05/24/19 08:21 Duoneb 0.5 Mg-3 Mg/3 Ml Soln INHALATION 3 ml RT-QID DORI Administration Albuterol/Ipratropium 3 ml 05/23/19 13:45 Duoneb 0.5 Mg-3 Mg/3 Ml Soln INHALATION RT-QID PRN Shortness Of Breath Or Wheezing Amlodipine Besylate 10 mg 05/24/19 09:00 05/24/19 08:52 Norvasc PO 10 mg DAILY DORI Administration Atenolol 25 mg 05/23/19 21:00 05/24/19 08:52 Tenormin PO 25 mg BID DORI Administration Atorvastatin Calcium 40 mg 05/24/19 09:00 05/24/19 08:53 Lipitor PO 40 mg DAILY DORI Administration Benzonatate 100 mg 05/23/19 13:46 Tessalon Perles PO TID PRN Cough Furosemide 60 mg 05/24/19 09:15 Lasix IV Q12HR DORI Hydralazine HCl 50 mg 05/24/19 09:15 Apresoline PO TID DORI Sodium Chloride 1,000 mls @ 10 mls/hr 05/23/19 14:00 05/23/19 15:50 Saline 0.9% IV 50 mls/hr .Q24H DORI Administration Insulin Aspart 0 unit 05/23/19 17:30 05/24/19 08:53 Novolog SQ 2 unit ACHS DORI Administration Protocol Isosorbide Mononitrate 30 mg 05/24/19 09:15 Imdur PO DAILY DORI Pantoprazole Sodium 40 mg 05/24/19 07:30 05/24/19 08:52 Protonix PO 40 mg AC-BRKFST DORI Administration Pioglitazone HCl 30 mg 05/24/19 09:00 05/24/19 08:53 Actos PO 30 mg DAILY DORI Administration Potassium Chloride 20 meq 05/24/19 09:00 05/24/19 08:52 K-Dur 20 PO 20 meq DAILY DORI Administration Sodium Bicarbonate 650 mg 05/23/19 21:00 05/24/19 08:52 Sodium Bicarbonate Tab PO 650 mg BID DORI Administration Intake and Output 05/23/19 05/24/19 05/24/19 22:59 06:59 14:59 Intake Total 250 300 Balance 250 300 Intake: Oral 250 300 Other: Voiding Method Toilet # Voids 1 2 05/23/19 14:20 05/23/19 14:20
[2019-05-24 11:52] LABS: Glucose,Whole Blood 245 mg/dL (75-99)
--- NOTE | 2019-05-24 13:00 | P.PN ---
Subjective Progress Note Date: 05/24/19 Principal diagnosis: Shortness of breath, weakness 79-year-old white female patient of Dr. Alexander Sarkar, with past medical history of hypertension, hyperlipidemia, osteoarthritis, diabetes mellitus type 2, chronic kidney disease stage III, lifetime nonsmoker, chronic congestive heart failure with diastolic dysfunction with EF between 60-65%, moderate aortic stenosis, mild MR, mild TR, moderate pulmonary hypertension with right-sided pressures of 55 mmHg. Patient was recently hospitalized in early April for shortness of breath related to acute tracheobronchitis. Patient was managed with IV steroids, nebulized bronchodilators. Patient also had worsening of her renal function during that admission related to diuretic therapy, she follows with Dr. Fontana for her history of CK-MB, she clinically improved and was discharged home. On 05/23/2019 patient presented to her PCPs office with complaints of worsening dyspnea, fatigue, exertional dyspnea and orthopnea, she denies any chest pain, denies any fever or chills, she states she has no appetite, but no nausea vomiting or diarrhea. She states she can hardly get dressed because she is so fatigued and weak. She denies any weight gain, however she has significant amount of lower extremity edema 2+ pitting edema. Chest x-ray was obtained, showing cardiomegaly, and probable subsegmental basilar atelectatic changes. No acute pulmonary process, lab work showed a white blood cell count is 6.9, hemoglobin of 10.5, sodium is 131, the rest of the electrolytes were within normal limits, BUN 62, creatinine is 2.23 glucose was 323, proBNP was 8840. Room air pulse ox is 91%, patient is afebrile, hemodynamically patient is stable. D-dimer and troponins are pending, patient has some end expiratory wheezes, no significant cough or congestion. Breathing treatments have been started. On 05/24/2019 patient seen in follow-up on the general medical floor, she still states she is dyspneic with exertion, does not appear to be in any acute distress, she is on room air, no complaints of chest pain, still significant edema in bilateral lower extremities 1-2+, patient has been on oral diuretics, she has been transitioned to IV diuretics and 60 mg twice daily per cardiology. Lung sounds are clear, no rhonchi, no wheezing, no rales. Cardiology is following. Troponins were mildly elevated at 0.039, 0.036, 0.037. Objective - Vital Signs Vital signs: Vital Signs Temp 97.0 F L 05/24/19 05:00 Pulse 75 05/24/19 12:04 Resp 20 05/24/19 05:00 BP 150/70 05/24/19 05:00 Pulse Ox 91 L 05/24/19 05:00 Intake & Output 05/23/19 05/24/19 05/24/19 18:59 06:59 18:59 Intake Total 550 Balance 550 Weight 84 kg Intake: Oral 550 Other: Voiding Method Toilet # Voids 2 - Exam GENERAL EXAM: Alert, very pleasant, 79-year-old white female, speaks with a G erman accent room air pulse ox is 91% comfortable in no apparent distress. HEAD: Normocephalic/atraumatic. EYES: Normal reaction of pupils, equal size. Conjunctiva pink, sclera white. NOSE: Clear with pink turbinates. THROAT: No erythema or exudates. NECK: No masses, no JVD, no thyroid enlargement, no adenopathy. CHEST: No chest wall deformity. Symmetrical expansion. LUNGS: Diminished air entry with end expiratory wheezes CVS: Regular rate and rhythm, normal S1 and S2, no gallops, no murmurs, no rubs ABDOMEN: Soft, nontender. No hepatosplenomegaly, normal bowel sounds, no guarding or rigidity. EXTREMITIES: No clubbing, significant lower extremity edema no cyanosis, 2+ pulses and upper and lower extremities. MUSCULOSKELETAL: Muscle strength and tone normal. SPINE: No scoliosis or deformity SKIN: No rashes CENTRAL NERVOUS SYSTEM: Alert and oriented -3. No focal deficits, tone is norm al in all 4 extremities. PSYCHIATRIC: Alert and oriented -3. Appropriate affect. Intact judgment and insight. - Labs CBC & Chem 7: 05/23/19 14:20 05/23/19 14:20 Labs: Abnormal Lab Results - Last 24 Hours (Table) 05/23/19 05/23/19 05/23/19 Range/Units 14:20 14:20 16:51 RBC 3.54 L (3.80-5.40) m/uL Hgb 10.5 L (11.4-16.0) gm/dL Hct 31.8 L (34.0-46.0) % Lymphocytes # 0.5 L (1.0-4.8) k/uL D-Dimer 3.14 H (<0.60) mg/L FEU Sodium 131 L (137-145) mmol/L BUN 62 H (7-17) mg/dL Creatinine 2.23 H (0.52-1.04) mg/dL Glucose 323 H (74-99) mg/dL POC Glucose (mg/dL) (75-99) mg/dL Calcium 8.3 L (8.4-10.2) mg/dL ALT 37 H (4-34) U/L Troponin I (0.000-0.034) ng/mL Total Protein 5.8 L (6.3-8.2) g/dL 05/23/19 05/23/19 05/23/19 Range/Units 16:51 17:06 20:20 RBC (3.80-5.40) m/uL Hgb (11.4-16.0) gm/dL Hct (34.0-46.0) % Lymphocytes # (1.0-4.8) k/uL D-Dimer (<0.60) mg/L FEU Sodium (137-145) mmol/L BUN (7-17) mg/dL Creatinine (0.52-1.04) mg/dL Glucose (74-99) mg/dL POC Glucose (mg/dL) 315 H 172 H (75-99) mg/dL Calcium (8.4-10.2) mg/dL ALT (4-34) U/L Troponin I 0.039 H* (0.000-0.034) ng/mL Total Protein (6.3-8.2) g/dL 05/23/19 05/23/19 05/24/19 Range/Units 22:05 22:44 05:19 RBC (3.80-5.40) m/uL Hgb (11.4-16.0) gm/dL Hct (34.0-46.0) % Lymphocytes # (1.0-4.8) k/uL D-Dimer (<0.60) mg/L FEU Sodium (137-145) mmol/L BUN (7-17) mg/dL Creatinine (0.52-1.04) mg/dL Glucose (74-99) mg/dL POC Glucose (mg/dL) 162 H (75-99) mg/dL Calcium (8.4-10.2) mg/dL ALT (4-34) U/L Troponin I 0.038 H* 0.036 H* (0.000-0.034) ng/mL Total Protein (6.3-8.2) g/dL 05/24/19 05/24/19 Range/Units 07:11 11:50 RBC (3.80-5.40) m/uL Hgb (11.4-16.0) gm/dL Hct (34.0-46.0) % Lymphocytes # (1.0-4.8) k/uL D-Dimer (<0.60) mg/L FEU Sodium (137-145) mmol/L BUN (7-17) mg/dL Creatinine (0.52-1.04) mg/dL Glucose (74-99) mg/dL POC Glucose (mg/dL) 180 H 245 H (75-99) mg/dL Calcium (8.4-10.2) mg/dL ALT (4-34) U/L Troponin I (0.000-0.034) ng/mL Total Protein (6.3-8.2) g/dL Assessment and Plan Plan: Assessment: #1. Acute dyspnea related to acute exacerbation of diastolic congestive heart failure #2. Recent hospitalization for acute tracheobronchitis #3. Suspect underlying bronchial asthma, however patient has not been following up in the outpatient clinic for outpatient PFT #4. Moderate aortic stenosis #5. Chronic congestive heart failure with diastolic dysfunction and EF of 60- 65% #6. Diabetes mellitus type 2, poorly controlled #7. Chronic kidney disease stage III #8. Lifetime nonsmoker #9. History of diverticulitis #10. History of bowel obstruction with surgical repair #11. Hypertension #12. Hyperlipidemia #13. Lower extremity edema Plan: Agree with IV diuretics, continue nebulized bronchodilators, patient's asthma is stable right now, and patient's shortness of breath is explained by acute exacerbation of CHF with diastolic dysfunction, patient did have evidence of mod erate aortic stenosis on her previous echocardiogram, will await further cardiology recommendations, and possibility of transesophageal echocardiogram. I performed a history & physical examination of the patient and discussed their management with my nurse practitioner, Zulma Rasheed. I reviewed the nurse practitioner's note and agree with the documented findings and plan of care. Lung sounds are positive for diminished breath sounds with end expiratory wheezing. The findings and the impression was discussed with the patient. I attest to the documentation by the nurse practitioner. Time with Patient: Less than 30
--- NOTE | 2019-05-24 15:01 | HP ---
HISTORY AND PHYSICAL A 79-year-old white female, hypertension, dyslipidemia, osteoarthritis, diabetes mellitus, recent chronic kidney disease stage 3 to 4, recent diastolic CHF, heart failure 60% to 65%, came in with significant shortness of breath. She apparently did not get her breathing treatments ordered at home. She is not getting her medications. She apparently could not afford it. She came in with increasing respiratory distress at rest, saturating low 90s. She has a history of moderate aortic stenosis with moderate pulmonary hypertension, right-sided heart failure with pressure at 55. She was started on IV Lasix, steroids, updraft treatments, and admitted to the hospital. Labs are reviewed. Pulmonary consult is reviewed. 14 POINT REVIEW OF SYSTEMS: Negative except for as mentioned in HPI. MEDICATIONS: As mentioned. She has been noncompliant with her updraft treatments. Otherwise, see list. PAST MEDICAL HISTORY: Right-sided heart failure, COPD, hypertension, osteoarthritis, renal disease. SURGERIES: Cholecystectomy, hysterectomy, tonsillectomy, tubal ligation, bowel resection, EGD, colonoscopies, bilateral cataracts. SOCIAL HISTORY: No smoking. No alcohol. No illicit drugs. FAMILY MEDICAL HISTORY: Brother diabetes mellitus. MEDICATIONS: See list. ALLERGIES: CODEINE, BENADRYL, IV DYE, SULFAS, TETRACYCLINE, ASPIRIN Respiratory 16 to 25, pulse 60s to 70s, temperature 98, blood pressure 140s/70s, 91% on room air. She looks to be short of breath at rest. HEAD: Normocephalic, atraumatic. NECK: Supple. No JVD. Lungs show scattered rhonchi and wheeze. Rales at the bases. HEART: S1, S2. ABDOMEN: Distended due to obesity. EXTREMITIES: 2+ pedal edema. Negative Homans. Muscle strength and tone is okay. SPINE: No scoliosis. SKIN: No rashes. RED HAT ENGINEER: Cranial nerves are intact. White count 6.9, hemoglobin is 10.5, BUN 62, creatinine 2.23. ASSESSMENT: Acute diastolic heart failure, acute on chronic, acute tracheobronchitis, suspect chronic obstructive pulmonary disease. Noncompliant with updraft treatments. Monitor aortic stenosis, diabetes mellitus, chronic kidney disease stage 3 to 4, diverticulosis, history of bowel obstruction with surgical repair, hypertension, dyslipidemia. Continue medications as mentioned above. Updraft treatments. Antibiotics. Increased diuresis. Cardiology and Pulmonary consult. She has refused a V/Q scan for elevated D-dimer, possibly elevated due to renal insufficiency. Wait for Pulmonary recommendations. Continue diuresis. Make sure she gets her updraft treatments at home. MMODL / IJN: [id number] /
[2019-05-24 17:20] LABS: Glucose,Whole Blood 270 mg/dL (75-99)
[2019-05-24 20:20] LABS: Glucose,Whole Blood 247 mg/dL (75-99)
[2019-05-25 07:05] LABS: Glucose,Whole Blood 203 mg/dL (75-99)
[2019-05-25] MEDS: IPRATROPIUM-ALBUTEROL 3 ML NEB INHALATION SCH ×4 (07:22→19:21)
[2019-05-25] MEDS: SODIUM BICARBONATE TAB 650 MG TAB PO SCH ×2 (08:38→22:11)
[2019-05-25] MEDS: POTASSIUM CHLORIDE ER 20 MEQ TAB.ER PO SCH (08:39)
[2019-05-25] MEDS: PANTOPRAZOLE 40 MG TABLET PO SCH (08:39)
[2019-05-25] MEDS: ISOSORBIDE MONONITRATE ER 30 MG TAB.ER.24H PO SCH (08:40)
[2019-05-25] MEDS: ATORVASTATIN 40 MG TAB PO SCH (08:40)
[2019-05-25] MEDS: PIOGLITAZONE 30 MG TAB PO SCH (08:40)
[2019-05-25] MEDS: hydrALAZINE HCL 50 MG TAB PO SCH ×3 (08:41→22:36)
[2019-05-25] MEDS: ATENOLOL 25 MG TAB PO SCH ×2 (08:42→22:11)
[2019-05-25] MEDS: INSULIN ASPART (NovoLOG) 100 UNIT/ML VIAL SQ SCH ×4 (08:44→22:34)
[2019-05-25] MEDS: amLODIPine 10 MG TAB PO SCH (08:48)
[2019-05-25] MEDS: SODIUM CHLORIDE 0.9% 1,000 ML IV SCH (09:45)
[2019-05-25] MEDS: FUROSEMIDE 10 MG/ML 10 ML VIAL IV SCH ×2 (09:45→22:11)
[2019-05-25 09:54] LABS: Potassium 4.4 mmol/L (3.5-5.1)
[2019-05-25 12:17] LABS: Glucose,Whole Blood 294 mg/dL (75-99)
--- NOTE | 2019-05-25 13:58 | P.PN ---
Subjective Progress Note Date: 05/25/19 79-year-old white female patient of Dr. Alexander Sarkar, with past medical history of hypertension, hyperlipidemia, osteoarthritis, diabetes mellitus type 2, chronic kidney disease stage III, lifetime nonsmoker, chronic congestive heart failure with diastolic dysfunction with EF between 60-65%, moderate aortic stenosis, mild MR, mild TR, moderate pulmonary hypertension with right-sided pressures of 55 mmHg. Patient was recently hospitalized in early April for shortness of breath related to acute tracheobronchitis. Patient was managed with IV steroids, nebulized bronchodilators. Patient also had worsening of her renal function during that admission related to diuretic therapy, she follows with Dr. Fontana for her history of CK-MB, she clinically improved and was discharged home. On 05/23/2019 patient presented to her PCPs office with complaints of worsening dyspnea, fatigue, exertional dyspnea and orthopnea, she denies any chest pain, denies any fever or chills, she states she has no appet ite, but no nausea vomiting or diarrhea. She states she can hardly get dressed because she is so fatigued and weak. She denies any weight gain, however she has significant amount of lower extremity edema 2+ pitting edema. Chest x-ray was obtained, showing cardiomegaly, and probable subsegmental basilar atelectatic changes. No acute pulmonary process, lab work showed a white blood cell count is 6.9, hemoglobin of 10.5, sodium is 131, the rest of the electrolytes were within normal limits, BUN 62, creatinine is 2.23 glucose was 323, proBNP was 8840. Room air pulse ox is 91%, patient is afebrile, hemodynamically patient is stable. D-dimer and troponins are pending, patient has some end expiratory wheezes, no significant cough or congestion. Breathing treatments have been started. On 05/24/2019 patient seen in follow-up on the general medical floor, she still states she is dyspneic with exertion, does not appear to be in any acute distress, she is on room air, no complaints of chest pain, still significant edema in bilateral lower extremities 1-2+, patient has been on oral diuretics, she has been transitioned to IV diuretics and 60 mg twice daily per cardiology. Lung sounds are clear, no rhonchi, no wheezing, no rales. Cardiology is following. Troponins were mildly elevated at 0.039, 0.036, 0.037. On 05/25/2019, the patient is feeling better compared to yesterday. She still has edema in lower extremities. Over, based on the fluid balance, the patient has lost approximately 2 kg since yesterday. She is less short of breath compared to yesterday. She is on IV Lasix milligrams IV push every 12 hours. Creatinine is up to 2.5. ProBNP level was elevated in the 8000 range. No chest pain. No angina. There is a cardiac murmur that was noted and the patient has moderate degree of pulmonary hypertension along with moderate degree of aortic stenosis. Her ejection fraction is in the order of 60-65% and she has diastolic heart failure in addition to chronic stage III kidney disease. Other comorbidities including hypertension and hyperlipidemia and diabetes mellitus type 2. Objective - Vital Signs Vital signs: Vital Signs Temp 98.4 F 05/25/19 12:20 Pulse 83 05/25/19 12:20 Resp 18 05/25/19 12:20 BP 127/72 05/25/19 12:20 Pulse Ox 94 L 05/25/19 12:20 Intake & Output 05/24/19 05/25/19 05/25/19 18:59 06:59 18:59 Intake Total 450 720 Output Total 194 630 6837 Balance -450 -50 -480 Weight 86 kg 83.2 kg Intake: Oral 450 720 Output: Urine 554 378 5014 Other: Voiding Method Toilet Toilet # Voids 1 # Bowel Movements 1 - Exam GENERAL EXAM: Alert, very pleasant, 79-year-old white female, speaks with a Sammarinese accent room air pulse ox is 91% comfortable in no apparent distress. HEAD: Normocephalic/atraumatic. EYES: Normal reaction of pupils, equal size. Conjunctiva pink, sclera white. NOSE: Clear with pink turbinates. THROAT: No erythema or exudates. NECK: No masses, no JVD, no thyroid enlargement, no adenopathy. CHEST: No chest wall deformity. Symmetrical expansion. LUNGS: Diminished air entry with end expiratory wheezes CVS: Regular rate and rhythm, normal S1 and S2, no gallops, no murmurs, no rubs ABDOMEN: Soft, nontender. No hepatosplenomegaly, normal bowel sounds, no guarding or rigidity. EXTREMITIES: No clubbing, significant lower extremity edema no cyanosis, 2+ pulses and upper and lower extremities. MUSCULOSKELETAL: Muscle strength and tone normal. SPINE: No scoliosis or deformity SKIN: No rashes CENTRAL NERVOUS SYSTEM: Alert and oriented -3. No focal deficits, tone is normal in all 4 extremities. PSYCHIATRIC: Alert and oriented -3. Appropriate affect. Intact judgment and insight. - Labs CBC & Chem 7: 05/23/19 14:20 05/25/19 08:30 Labs: Abnormal Lab Results - Last 24 Hours (Table) 05/24/19 05/24/19 05/25/19 Range/Units 17:19 20:10 07:04 Sodium (137-145) mmol/L BUN (7-17) mg/dL Creatinine (0.52-1.04) mg/dL Glucose (74-99) mg/dL POC Glucose (mg/dL) 270 H 247 H 203 H (75-99) mg/dL Calcium (8.4-10.2) mg/dL 05/25/19 05/25/19 Range/Units 08:30 12:15 Sodium 134 L (137-145) mmol/L BUN 51 H (7-17) mg/dL Creatinine 2.59 H (0.52-1.04) mg/dL Glucose 225 H (74-99) mg/dL POC Glucose (mg/dL) 294 H (75-99) mg/dL Calcium 8.0 L (8.4-10.2) mg/dL Assessment and Plan Plan: #1. Acute dyspnea related to acute exacerbation of diastolic congestive heart failure , improving with diuretics #2. Recent hospitalization for acute tracheobronchitis #3. Suspect underlying bronchial asthma, however patient has not been following up in the outpatient clinic for outpatient PFT #4. Moderate aortic stenosis with moderate to severe pulmonary hypertension related to her valvular heart disease. The patient has hypertensive heart disease with concentric LVH. Left ventricular ejection fraction is preserved. #5. Chronic congestive heart failure with diastolic dysfunction and EF of 60- 65% #6. Diabetes mellitus type 2, poorly controlled #7. Chronic stage III kidney disease with a component of acute kidney injury in the creatinine is up to 2.5 currently on IV Lasix #8. Lifetime nonsmoker #9. History of diverticulitis #10. History of bowel obstruction with surgical repair #11. Hypertension #12. Hyperlipidemia #13. Lower extremity edema Plan Monitor renal function Continue IV Lasix Discussed with supply specialist the possibility of a RODRIGO regarding her ALS severity We'll continue to follow.
--- NOTE | 2019-05-25 14:49 | P.PN ---
Subjective HISTORY OF PRESENTING ILLNESS This is a pleasant 79-year-old female past medical history significant for COPD, diabetes mellitus, hypertension, chronic kidney disease, chronic diastolic heart failure, pulmonary hypertension and aortic stenosis. She denies prior history of coronary artery disease and does not follow in the office with a autoglazier. She is seen and examined sitting up in bed with daughter at the bedside. She continues to feel short of breath with exertion. In fact she is just attempting to get up to the bathroom and feels dyspneic. She denies chest pain, dizziness or palpitations. Blood pressure 127/72 heart rate 83 afebrile maintaining oxygen saturation on nasal cannula. Laboratory data reviewed, sodium 134, potassium 4.4, creatinine 2.59. Currently maintained on amlodipine 10 mg daily, atenolol 25 mg twice a day, atorvastatin 40 mg daily, Lasix 60 mg IV twice a day, hydralazine 50 mg 3 times a day and Imdur 30 mg daily. Weight is down 1 kg from admission. PHYSICAL EXAMINATION CONSTITUTIONAL: No apparent distress. HEENT: Head is normocephalic. Pupils are equal, round. Sclerae anicteric. Mucous membranes of the mouth are moist. JVD is evident bilaterally. No carotid bruit. CHEST EXAMINATION: Lungs are clear to auscultation. No chest wall tenderness is noted on palpation or with deep breathing. HEART EXAMINATION: Regular rate and rhythm. S1, S2 heard. Systolic ejection murmur at the base, no gallops or rub. EXTREMITIES: 2+ peripheral pulses, 1+ bilateral lower extremity pitting edema and no calf tenderness. ASSESSMENT Acute on chronic diastolic heart failure Hypertension, uncontrolled Acute on chronic renal failure Elevated troponin secondary to chronic renal failure. Enzymes are flat and not suggestive of an acute event. Diabetes mellitus Valvular heart disease Pulmonary hypertension COPD PLAN Continue current medical regimen and diuresis for another 24 hours. Follow renal function and electrolytes in the morning. Apply bilateral knee-high ANAI hose. Advised the patient to elevate her feet when recumbent. Nurse Practitioner note has been reviewed, I agree with a documented findings and plan of care. Patient was seen and examined. Objective - Vital Signs Vital signs: Vital Signs Temp 98.4 F 05/25/19 12:20 Pulse 83 05/25/19 12:20 Resp 18 05/25/19 12:20 BP 127/72 01/30/20 12:20 Pulse Ox 94 L 05/25/19 12:20 Intake & Output 05/24/19 05/25/19 05/25/19 18:59 06:59 18:59 Intake Total 450 1200 Output Total 282 984 7149 Balance -450 -50 0 Weight 86 kg 83.2 kg Intake: Oral 450 1200 Output: Urine 339 924 3046 Other: Voiding Method Toilet Toilet # Voids 1 # Bowel Movements 1 - Labs CBC & Chem 7: 05/23/19 14:20 05/25/19 08:30 Labs: Abnormal Lab Results - Last 24 Hours (Table) 05/24/19 05/24/19 05/25/19 Range/Units 17:19 20:10 07:04 Sodium (137-145) mmol/L BUN (7-17) mg/dL Creatinine (0.52-1.04) mg/dL Glucose (74-99) mg/dL POC Glucose (mg/dL) 270 H 247 H 203 H (75-99) mg/dL Calcium (8.4-10.2) mg/dL 05/25/19 05/25/19 Range/Units 08:30 12:15 Sodium 134 L (137-145) mmol/L BUN 51 H (7-17) mg/dL Creatinine 2.59 H (0.52-1.04) mg/dL Glucose 225 H (74-99) mg/dL POC Glucose (mg/dL) 294 H (75-99) mg/dL Calcium 8.0 L (8.4-10.2) mg/dL
--- NOTE | 2019-05-25 16:07 | P.PN ---
Subjective Progress Note Date: 05/25/19 This is a 79-year-old female admitted with acute diastolic CHF exacerbation, tracheobronchitis and multiple other medical issues. Diuresing well on Lasix IV push with 24-hour I&O reflecting a negative fluid balance. Renal function mildly worsened, creatinine 2.59. Feels better today, less shortness of breath. Denies chest pain or palpitations. Objective - Vital Signs Vital signs: Vital Signs Temp 98.4 F 05/25/19 12:20 Pulse 83 05/25/19 12:20 Resp 18 05/25/19 12:20 BP 127/72 05/25/19 12:20 Pulse Ox 94 L 05/25/19 12:20 Intake & Output 05/24/19 05/25/19 05/25/19 18:59 06:59 18:59 Intake Total 450 1200 Output Total 791 578 9501 Balance -450 -50 0 Weight 86 kg 83.2 kg Intake: Oral 450 1200 Output: Urine 541 126 9275 Other: Voiding Method Toilet Toilet # Voids 1 # Bowel Movements 1 - Exam PHYSICAL EXAM: VITAL SIGNS: As above GENERAL: Sitting up in bed, no acute distress HEENT: Conjunctivae normal. eyes normal. Oral mucosa moist NECK: No JVD. No thyroid enlargement. No LNs CARDIOVASCULAR: S1, S2 regular. Systolic murmur RESPIRATION: Breath sounds diminished in the bases. Expiratory wheezing ABDOMEN: Soft, nontender . No guarding. no masses palpable. No ascites, No hepatosplenomegaly.Bowel sounds heard. LEGS: Positive edema, 2+ pulses PSYCHIATRY: Alert and oriented X3, mood and affect normal. NERVOUS SYSTEM: Cranial N 2-12 grossly normal. Moves all 4 limbs. Diffuse weakness No focal deficits. Strength and sensation grossly intact.. Skin: no rash Lymphatic system. No LN neck axilla. - Labs CBC & Chem 7: 05/23/19 14:20 05/25/19 08:30 Labs: Abnormal Lab Results - Last 24 Hours (Table) 05/24/19 05/24/19 05/25/19 Range/Units 17:19 20:10 07:04 Sodium (137-145) mmol/L BUN (7-17) mg/dL Creatinine (0.52-1.04) mg/dL Glucose (74-99) mg/dL POC Glucose (mg/dL) 270 H 247 H 203 H (75-99) mg/dL Calcium (8.4-10.2) mg/dL 05/25/19 05/25/19 Range/Units 08:30 12:15 Sodium 134 L (137-145) mmol/L BUN 51 H (7-17) mg/dL Creatinine 2.59 H (0.52-1.04) mg/dL Glucose 225 H (74-99) mg/dL POC Glucose (mg/dL) 294 H (75-99) mg/dL Calcium 8.0 L (8.4-10.2) mg/dL Assessment and Plan Assessment: Acute on chronic CHF exacerbation, diastolic dysfunction Acute on chronic renal failure, stage IV Acute tracheobronchitis Diabetes mellitus Hypertension Dyslipidemia Moderate aortic stenosis Severe pulmonary hypertension Ongoing nicotine dependence Plan: Continue on current medication regime ,monitoring and symptomatic treatment. Patient declined VQ scan. Continue diuresing as per cardiology. P ossible RODRIGO being discussed. Thigh-high teds. Maintain nebulized bronchodilators. Close monitoring of renal function with repeat labs ordered for a.m. Increase ambulation as tolerated. The impression and plan of care has been dictated as directed. : I performed a history and examination of this patient, discussed the same with the dictator. I agree with the dictator's note ,documented as a scribe. Any additional findings or plans will be noted.
[2019-05-25 17:04] LABS: Glucose,Whole Blood 317 mg/dL (75-99)
[2019-05-25 20:55] LABS: Glucose,Whole Blood 282 mg/dL (75-99)
[2019-05-26 07:17] LABS: Glucose,Whole Blood 238 mg/dL (75-99)
[2019-05-26] MEDS: IPRATROPIUM-ALBUTEROL 3 ML NEB INHALATION SCH ×4 (07:51→19:49)
[2019-05-26] MEDS: amLODIPine 10 MG TAB PO SCH (08:26)
[2019-05-26] MEDS: SODIUM BICARBONATE TAB 650 MG TAB PO SCH ×2 (08:26→21:04)
[2019-05-26] MEDS: PIOGLITAZONE 30 MG TAB PO SCH (08:26)
[2019-05-26] MEDS: ATENOLOL 25 MG TAB PO SCH ×2 (08:26→21:04)
[2019-05-26] MEDS: FUROSEMIDE 10 MG/ML 10 ML VIAL IV SCH ×2 (08:26→21:03)
[2019-05-26] MEDS: POTASSIUM CHLORIDE ER 20 MEQ TAB.ER PO SCH (08:26)
[2019-05-26] MEDS: ATORVASTATIN 40 MG TAB PO SCH (08:27)
[2019-05-26] MEDS: ISOSORBIDE MONONITRATE ER 30 MG TAB.ER.24H PO SCH (08:27)
[2019-05-26] MEDS: INSULIN ASPART (NovoLOG) 100 UNIT/ML VIAL SQ SCH ×4 (08:27→21:05)
[2019-05-26] MEDS: hydrALAZINE HCL 50 MG TAB PO SCH ×3 (08:27→21:04)
[2019-05-26] MEDS: PANTOPRAZOLE 40 MG TABLET PO SCH (08:27)
[2019-05-26 08:34] LABS: HCT 25.7 % (34.0-46.0); MCH 28.2 pg (25.0-35.0); MCHC 31.5 g/dL (31.0-37.0); MCV 89.5 fL (80.0-100.0); Platelet Count 180 k/uL (150-450); RBC 2.87 m/uL (3.80-5.40); RDW 14.8 % (11.5-15.5); WBC 4.4 k/uL (3.8-10.6)
[2019-05-26 08:45] LABS: HGB 8.1 gm/dL (11.4-16.0)
[2019-05-26 08:48] LABS: Calcium 7.8 mg/dL (8.4-10.2); Potassium 4.5 mmol/L (3.5-5.1)
--- NOTE | 2019-05-26 10:35 | P.PN ---
Subjective Progress Note Date: 05/26/19 79-year-old white female patient of Dr. Alexander Sarkar, with past medical history of hypertension, hyperlipidemia, osteoarthritis, diabetes mellitus type 2, chronic kidney disease stage III, lifetime nonsmoker, chronic congestive heart failure with diastolic dysfunction with EF between 60-65%, moderate aortic stenosis, mild MR, mild TR, moderate pulmonary hypertension with right-sided pressures of 55 mmHg. Patient was recently hospitalized in early April for shortness of breath related to acute tracheobronchitis. Patient was managed with IV steroids, nebulized bronchodilators. Patient also had worsening of her renal function during that admission related to diuretic therapy, she follows with Dr. Fontana for her history of CK-MB, she clinically improved and was discharged home. On 05/23/2019 patient presented to her PCPs office with complaints of worsening dyspnea, fatigue, exertional dyspnea and orthopnea, she denies any chest pain, denies any fever or chills, she states she has no appet ite, but no nausea vomiting or diarrhea. She states she can hardly get dressed because she is so fatigued and weak. She denies any weight gain, however she has significant amount of lower extremity edema 2+ pitting edema. Chest x-ray was obtained, showing cardiomegaly, and probable subsegmental basilar atelectatic changes. No acute pulmonary process, lab work showed a white blood cell count is 6.9, hemoglobin of 10.5, sodium is 131, the rest of the electrolytes were within normal limits, BUN 62, creatinine is 2.23 glucose was 323, proBNP was 8840. Room air pulse ox is 91%, patient is afebrile, hemodynamically patient is stable. D-dimer and troponins are pending, patient has some end expiratory wheezes, no significant cough or congestion. Breathing treatments have been started. On 05/24/2019 patient seen in follow-up on the general medical floor, she still states she is dyspneic with exertion, does not appear to be in any acute distress, she is on room air, no complaints of chest pain, still significant edema in bilateral lower extremities 1-2+, patient has been on oral diuretics, she has been transitioned to IV diuretics and 60 mg twice daily per cardiology. Lung sounds are clear, no rhonchi, no wheezing, no rales. Cardiology is following. Troponins were mildly elevated at 0.039, 0.036, 0.037. On 05/25/2019, the patient is feeling better compared to yesterday. She still has edema in lower extremities. Over, based on the fluid balance, the patient has lost approximately 2 kg since yesterday. She is less short of breath compared to yesterday. She is on IV Lasix milligrams IV push every 12 hours. Creatinine is up to 2.5. ProBNP level was elevated in the 8000 range. No chest pain. No angina. There is a cardiac murmur that was noted and the patient has moderate degree of pulmonary hypertension along with moderate degree of aortic stenosis. Her ejection fraction is in the order of 60-65% and she has diastolic heart failure in addition to chronic stage III kidney disease. Other comorbidities including hypertension and hyperlipidemia and diabetes mellitus type 2. On 05/26/2019 and seeing the patient for a follow-up. She is resting comfortably in bed. Reportedly improvement in her shortness of breath. She is also reporting improvement in the lower extremity edema. No fever. No chills. Creatinine is stable at 2.5. She is taking Lasix 60 mg IV push every 12 hours. She had a negative fluid balance. She has diabetes another liter since yesterday. No other significant complaints. No fever. No chills. No cough. No sputum production. No symptoms of bronchitis or pneumonia at this point in time. The patient is no other complaints. Objective - Vital Signs Vital signs: Vital Signs Temp 98.4 F 05/26/19 06:58 Pulse 80 05/26/19 08:02 Resp 16 05/26/19 08:02 BP 128/72 05/26/19 06:58 Pulse Ox 96 05/26/19 07:52 Intake & Output 05/25/19 05/26/19 05/26/19 18:59 06:59 18:59 Intake Total 1200 Output Total 1600 600 Balance -400 -600 Weight 83.2 kg 82.9 kg Intake: Oral 1200 Output: Urine 1600 600 Other: Voiding Method Toilet Toilet # Voids 1 400 # Bowel Movements 0 - Exam GENERAL EXAM: Alert, very pleasant, 79-year-old white female, speaks with a [place] accent room air pulse ox is 91% comfortable in no apparent distress. HEAD: Normocephalic/atraumatic. EYES: Normal reaction of pupils, equal size. Conjunctiva pink, sclera white. NOSE: Clear with pink turbinates. THROAT: No erythema or exudates. NECK: No masses, no JVD, no thyroid enlargement, no adenopathy. CHEST: No chest wall deformity. Symmetrical expansion. LUNGS: Diminished air entry with end expiratory wheezes CVS: Regular rate and rhythm, normal S1 and S2, no gallops, no murmurs, no rubs ABDOMEN: Soft, nontender. No hepatosplenomegaly, normal bowel sounds, no guarding or rigidity. EXTREMITIES: No clubbing, significant lower extremity edema no cyanosis, 2+ pulses and upper and lower extremities. MUSCULOSKELETAL: Muscle strength and tone normal. SPINE: No scoliosis or deformity SKIN: No rashes CENTRAL NERVOUS SYSTEM: Alert and oriented -3. No focal deficits, tone is normal in all 4 extremities. PSYCHIATRIC: Alert and oriented -3. Appropriate affect. Intact judgment and insight. - Labs CBC & Chem 7: 05/26/19 07:36 05/26/19 07:36 Labs: Abnormal Lab Results - Last 24 Hours (Table) 05/25/19 05/25/19 05/25/19 Range/Units 12:15 17:03 20:53 RBC (3.80-5.40) m/uL Hgb (11.4-16.0) gm/dL Hct (34.0-46.0) % Sodium (137-145) mmol/L BUN (7-17) mg/dL Creatinine (0.52-1.04) mg/dL Glucose (74-99) mg/dL POC Glucose (mg/dL) 294 H 317 H 282 H (75-99) mg/dL Calcium (8.4-10.2) mg/dL 05/26/19 05/26/19 05/26/19 Range/Units 07:15 07:36 07:36 RBC 2.87 L (3.80-5.40) m/uL Hgb 8.1 L D (11.4-16.0) gm/dL Hct 25.7 L (34.0-46.0) % Sodium 133 L (137-145) mmol/L BUN 50 H (7-17) mg/dL Creatinine 2.52 H (0.52-1.04) mg/dL Glucose 199 H (74-99) mg/dL POC Glucose (mg/dL) 238 H (75-99) mg/dL Calcium 7.8 L (8.4-10.2) mg/dL Assessment and Plan Plan: #1. Acute dyspnea related to acute exacerbation of diastolic congestive heart failure , improving with diuretics and there is improvement in lower extremity edema. There is improvement in her shortness of breath and the patient is responding nicely to diuretics. #2. Recent hospitalization for acute tracheobronchitis #3. Suspect underlying bronchial asthma, however patient has not been following up in the outpatient clinic for outpatient PFT #4. Moderate aortic stenosis with moderate to severe pulmonary hypertension related to her valvular heart disease. The patient has hypertensive heart disease with concentric LVH. Left ventricular ejection fraction is preserved. #5. Chronic congestive heart failure with diastolic dysfunction and EF of 60- 65% #6. Diabetes mellitus type 2, poorly controlled #7. Chronic stage III kidney disease with a component of acute kidney injury in the creatinine is up to 2.5 currently on IV Lasix #8. Lifetime nonsmoker #9. History of diverticulitis #10. History of bowel obstruction with surgical repair #11. Hypertension #12. Hyperlipidemia #13. Lower extremity edema Plan Monitor renal function Continue IV Lasix Discussed with environmental health and safety manager the possibility of a RODRIGO regarding her severity Renal function is stable. Edema is improving. Shortness of breath is improving We'll continue to follow.
--- NOTE | 2019-05-26 11:11 | P.PN ---
Subjective HISTORY OF PRESENTING ILLNESS This is a pleasant 79-year-old female past medical history significant for COPD, diabetes mellitus, hypertension, chronic kidney disease, chronic diastolic heart failure, pulmonary hypertension and aortic stenosis. She denies prior history of coronary artery disease and does not follow in the office with a front end technician. She is seen and examined sitting up in bed. She continues to feel short of breath with exertion however she has noticed some slight improvement. Lower extremity edema is improving but still ongoing. Weight is down another 1 kg today for a total of 2 since admission. Maintaining negative fluid balance. Laboratory data reviewed, hgb 8.1, plt 180, sodium 133, potassium 4.5, creatinine 2.52. Blood pressure 128/72 heart rate 84 afebrile. Currently maintained on lasix 60 mg IV BID, amlodipine 10 mg daily, atenolol 25 mg BID, atorvastatin 40 mg daily, imdur 30 mg daily and hydralazine 50 mg TID. PHYSICAL EXAMINATION CONSTITUTIONAL: No apparent distress. HEENT: Head is normocephalic. Pupils are equal, round. Sclerae anicteric. Mucous membranes of the mouth are moist. JVD is evident bilaterally. No carotid bruit. CHEST EXAMINATION: Lungs are clear to auscultation. No chest wall tenderness is noted on palpation or with deep breathing. HEART EXAMINATION: Regular rate and rhythm. S1, S2 heard. Systolic ejection murmur at the base, no gallops or rub. EXTREMITIES: 2+ peripheral pulses, 1+ bilateral lower extremity pitting edema and no calf tenderness. ASSESSMENT Acute on chronic diastolic heart failure Hypertension, uncontrolled Acute on chronic renal failure Elevated troponin secondary to chronic renal failure. Enzymes are flat and not suggestive of an acute event. Diabetes mellitus Valvular heart disease Pulmonary hypertension COPD PLAN Continue to diurese. Follow renal function and electrolytes in the morning. Echocardiogram from earlier this month reviewed, aortic stenosis is mild and not significant appearing. There is no need for RODRIGO. Nurse Practitioner note has been reviewed, I agree with a documented findings and plan of care. Patient was seen and examined. Objective - Vital Signs Vital signs: Vital Signs Temp 98.4 F 05/26/19 06:58 Pulse 80 05/26/19 08:02 Resp 20 05/26/19 10:47 BP 128/72 05/26/19 06:58 Pulse Ox 89 L 05/26/19 10:47 Intake & Output 05/25/19 05/26/19 05/26/19 18:59 06:59 18:59 Intake Total 1200 Output Total 1600 600 Balance -400 -600 Weight 83.2 kg 82.9 kg Intake: Oral 1200 Output: Urine 1600 600 Other: Voiding Method Toilet Toilet # Voids 1 400 # Bowel Movements 0 - Labs CBC & Chem 7: 05/26/19 07:36 05/26/19 07:36 Labs: Abnormal Lab Results - Last 24 Hours (Table) 05/25/19 05/25/19 05/25/19 Range/Units 12:15 17:03 20:53 RBC (3.80-5.40) m/uL Hgb (11.4-16.0) gm/dL Hct (34.0-46.0) % Sodium (137-145) mmol/L BUN (7-17) mg/dL Creatinine (0.52-1.04) mg/dL Glucose (74-99) mg/dL POC Glucose (mg/dL) 294 H 317 H 282 H (75-99) mg/dL Calcium (8.4-10.2) mg/dL 05/26/19 05/26/19 05/26/19 Range/Units 07:15 07:36 07:36 RBC 2.87 L (3.80-5.40) m/uL Hgb 8.1 L D (11.4-16.0) gm/dL Hct 25.7 L (34.0-46.0) % Sodium 133 L (137-145) mmol/L BUN 50 H (7-17) mg/dL Creatinine 2.52 H (0.52-1.04) mg/dL Glucose 199 H (74-99) mg/dL POC Glucose (mg/dL) 238 H (75-99) mg/dL Calcium 7.8 L (8.4-10.2) mg/dL
--- NOTE | 2019-05-26 12:06 | P.PN ---
Subjective Progress Note Date: 05/26/19 This is a 79-year-old female admitted with acute diastolic CHF exacerbation, tracheobronchitis and multiple other medical issues. Diuresing well on Lasix IV push with 24-hour I&O reflecting a negative fluid balance. Renal function mildly worsened, creatinine 2.59. Feels better today, less shortness of breath. Denies chest pain or palpitations. 05/26/2019 diuresing well on Lasix IV push with 24-hour I&O reflecting a negative fluid balance. Breathing continues to improve. Creatinine maintaining at 2.52. Hemoglobin 8.1. Vital signs stable, maintaining O2 sats in the 90s on 2 L nasal cannula, 89% on room air. Complains of decreased appetite, nausea, no emesis. Denies chest pain, palpitations or worsening shortness of breath. Objective - Vital Signs Vital signs: Vital Signs Temp 98.4 F 05/26/19 06:58 Pulse 80 05/26/19 08:02 Resp 20 05/26/19 10:47 BP 128/72 05/26/19 06:58 Pulse Ox 89 L 05/26/19 10:47 Intake & Output 05/25/19 05/26/19 05/26/19 18:59 06:59 18:59 Intake Total 1200 Output Total 1600 600 Balance -400 -600 Weight 83.2 kg 82.9 kg Intake: Oral 1200 Output: Urine 1600 600 Other: Voiding Method Toilet Toilet # Voids 1 400 # Bowel Movements 0 - Exam PHYSICAL EXAM: VITAL SIGNS: As above GENERAL: Sitting up in bed, no acute distress HEENT: Conjunctivae normal. eyes normal. Oral mucosa moist NECK: No JVD. No thyroid enlargement. No LNs CARDIOVASCULAR: S1, S2 regular. Systolic murmur RESPIRATION: Breath sounds diminished in the bases. ABDOMEN: Soft, nontender . No guarding. no masses palpable. No ascites, No hepatosplenomegaly.Bowel sounds heard. LEGS: Decreasing edema, 2+ pulses PSYCHIATRY: Alert and oriented X3, mood and affect normal. NERVOUS SYSTEM: Cranial N 2-12 grossly normal. Moves all 4 limbs. No focal deficits. Strength and sensation grossly intact.. Skin: no rash - Labs CBC & Chem 7: 05/26/19 07:36 05/26/19 07:36 Labs: Abnormal Lab Results - Last 24 Hours (Table) 05/25/19 05/25/19 05/25/19 Range/Units 12:15 17:03 20:53 RBC (3.80-5.40) m/uL Hgb (11.4-16.0) gm/dL Hct (34.0-46.0) % Sodium (137-145) mmol/L BUN (7-17) mg/dL Creatinine (0.52-1.04) mg/dL Glucose (74-99) mg/dL POC Glucose (mg/dL) 294 H 317 H 282 H (75-99) mg/dL Calcium (8.4-10.2) mg/dL 05/26/19 05/26/19 05/26/19 Range/Units 07:15 07:36 07:36 RBC 2.87 L (3.80-5.40) m/uL Hgb 8.1 L D (11.4-16.0) gm/dL Hct 25.7 L (34.0-46.0) % Sodium 133 L (137-145) mmol/L BUN 50 H (7-17) mg/dL Creatinine 2.52 H (0.52-1.04) mg/dL Glucose 199 H (74-99) mg/dL POC Glucose (mg/dL) 238 H (75-99) mg/dL Calcium 7.8 L (8.4-10.2) mg/dL Assessment and Plan Assessment: Acute on chronic CHF exacerbation, diastolic dysfunction Acute on chronic renal failure, stage IV Elevated troponin secondary to chronic renal failure, not suggestive of cardiac event as per cardiology Acute tracheobronchitis Diabetes mellitus Hypertension Dyslipidemia Mild to Moderate aortic stenosis Severe pulmonary hypertension Ongoing nicotine dependence Plan:Continue on current medication regime ,monitoring and symptomatic treatment. Diuresing as per cardiology. Close monitoring of renal function with repeat labs ordered for a.m. No RODRIGO recommended at this time as per cardiology. Encourage patient to increase in relation as tolerated. The impression and plan of care has been dictated as directed. : I performed a history and examination of this patient, discussed the same with the dictator. I agree with the dictator's note ,documented as a scribe. Any additional findings or plans will be noted.
[2019-05-26 12:09] LABS: Glucose,Whole Blood 363 mg/dL (75-99)
[2019-05-26] MEDS: SODIUM CHLORIDE 0.9% 1,000 ML IV SCH (12:37)
[2019-05-26 17:09] LABS: Glucose,Whole Blood 184 mg/dL (75-99)
[2019-05-26 20:53] LABS: Glucose,Whole Blood 252 mg/dL (75-99)
[2019-05-27 07:10] LABS: Calcium 7.8 mg/dL (8.4-10.2); Potassium 4.2 mmol/L (3.5-5.1)
[2019-05-27 07:16] LABS: Glucose,Whole Blood 180 mg/dL (75-99)
[2019-05-27] MEDS: IPRATROPIUM-ALBUTEROL 3 ML NEB INHALATION SCH ×4 (07:19→20:04)
[2019-05-27] MEDS: PANTOPRAZOLE 40 MG TABLET PO SCH (07:22)
[2019-05-27] MEDS: INSULIN ASPART (NovoLOG) 100 UNIT/ML VIAL SQ SCH ×4 (07:33→23:04)
[2019-05-27] MEDS: SODIUM BICARBONATE TAB 650 MG TAB PO SCH ×2 (09:05→20:40)
[2019-05-27] MEDS: ATORVASTATIN 40 MG TAB PO SCH (09:06)
[2019-05-27] MEDS: POTASSIUM CHLORIDE ER 20 MEQ TAB.ER PO SCH (09:06)
[2019-05-27] MEDS: FUROSEMIDE 10 MG/ML 10 ML VIAL IV SCH ×2 (09:06→20:39)
[2019-05-27] MEDS: hydrALAZINE HCL 50 MG TAB PO SCH ×3 (09:06→23:04)
[2019-05-27] MEDS: ISOSORBIDE MONONITRATE ER 30 MG TAB.ER.24H PO SCH (09:06)
[2019-05-27] MEDS: amLODIPine 10 MG TAB PO SCH (09:06)
[2019-05-27] MEDS: PIOGLITAZONE 30 MG TAB PO SCH (09:06)
[2019-05-27] MEDS: ATENOLOL 25 MG TAB PO SCH ×2 (09:06→20:39)
--- NOTE | 2019-05-27 10:02 | P.PN ---
Subjective Progress Note Date: 05/27/19 79-year-old white female patient of Dr. Alexander Sarkar, with past medical history of hypertension, hyperlipidemia, osteoarthritis, diabetes mellitus type 2, chronic kidney disease stage III, lifetime nonsmoker, chronic congestive heart failure with diastolic dysfunction with EF between 60-65%, moderate aortic stenosis, mild MR, mild TR, moderate pulmonary hypertension with right-sided pressures of 55 mmHg. Patient was recently hospitalized in early April for shortness of breath related to acute tracheobronchitis. Patient was managed with IV steroids, nebulized bronchodilators. Patient also had worsening of her renal function during that admission related to diuretic therapy, she follows with Dr. Fontana for her history of CK-MB, she clinically improved and was discharged home. On 05/23/2019 patient presented to her PCPs office with complaints of worsening dyspnea, fatigue, exertional dyspnea and orthopnea, she denies any chest pain, denies any fever or chills, she states she has no appet ite, but no nausea vomiting or diarrhea. She states she can hardly get dressed because she is so fatigued and weak. She denies any weight gain, however she has significant amount of lower extremity edema 2+ pitting edema. Chest x-ray was obtained, showing cardiomegaly, and probable subsegmental basilar atelectatic changes. No acute pulmonary process, lab work showed a white blood cell count is 6.9, hemoglobin of 10.5, sodium is 131, the rest of the electrolytes were within normal limits, BUN 62, creatinine is 2.23 glucose was 323, proBNP was 8840. Room air pulse ox is 91%, patient is afebrile, hemodynamically patient is stable. D-dimer and troponins are pending, patient has some end expiratory wheezes, no significant cough or congestion. Breathing treatments have been started. On 05/24/2019 patient seen in follow-up on the general medical floor, she still states she is dyspneic with exertion, does not appear to be in any acute distress, she is on room air, no complaints of chest pain, still significant edema in bilateral lower extremities 1-2+, patient has been on oral diuretics, she has been transitioned to IV diuretics and 60 mg twice daily per cardiology. Lung sounds are clear, no rhonchi, no wheezing, no rales. Cardiology is following. Troponins were mildly elevated at 0.039, 0.036, 0.037. On 05/25/2019, the patient is feeling better compared to yesterday. She still has edema in lower extremities. Over, based on the fluid balance, the patient has lost approximately 2 kg since yesterday. She is less short of breath compared to yesterday. She is on IV Lasix milligrams IV push every 12 hours. Creatinine is up to 2.5. ProBNP level was elevated in the 8000 range. No chest pain. No angina. There is a cardiac murmur that was noted and the patient has moderate degree of pulmonary hypertension along with moderate degree of aortic stenosis. Her ejection fraction is in the order of 60-65% and she has diastolic heart failure in addition to chronic stage III kidney disease. Other comorbidities including hypertension and hyperlipidemia and diabetes mellitus type 2. On 05/26/2019 and seeing the patient for a follow-up. She is resting comfortably in bed. Reportedly improvement in her shortness of breath. She is also reporting improvement in the lower extremity edema. No fever. No chills. Creatinine is stable at 2.5. She is taking Lasix 60 mg IV push every 12 hours. She had a negative fluid balance. She has diabetes another liter since yesterday. No other significant complaints. No fever. No chills. No cough. No sputum production. No symptoms of bronchitis or pneumonia at this point in time. The patient is no other complaints. On 05/27/2019 and seeing the patient for a follow-up. Gradually improving. Lower extremity edema is nearly recovered. Creatinine stable at 2.6. Still on IV Lasix. Most of the shortness of breath. I took her off the oxygen and I want to see if she is able to maintain her pulse ox above 90%. No significant sputum production. No chest pain. No pleurisy. No cardiac arrhythmias. Objective - Vital Signs Vital signs: Vital Signs Temp 98.8 F 05/27/19 05:19 Pulse 80 05/27/19 07:29 Resp 15 05/27/19 05:19 BP 129/68 05/27/19 05:19 Pulse Ox 95 05/27/19 05:19 Intake & Output 05/26/19 05/27/19 05/27/19 18:59 06:59 18:59 Intake Total 480 Balance 480 Weight 85 kg Intake: Oral 480 Other: Voiding Method Toilet # Voids 2 - Exam GENERAL EXAM: Alert, very pleasant, 79-year-old white female, speaks with a [place] accent room air pulse ox is 91% comfortable in no apparent distress. HEAD: Normocephalic/atraumatic. EYES: Normal reaction of pupils, equal size. Conjunctiva pink, sclera white. NOSE: Clear with pink turbinates. THROAT: No erythema or exudates. NECK: No masses, no JVD, no thyroid enlargement, no adenopathy. CHEST: No chest wall deformity. Symmetrical expansion. LUNGS: Diminished air entry with end expiratory wheezes CVS: Regular rate and rhythm, normal S1 and S2, no gallops, no murmurs, no rubs ABDOMEN: Soft, nontender. No hepatosplenomegaly, normal bowel sounds, no guarding or rigidity. EXTREMITIES: No clubbing, no cyanosis, 2+ pulses and upper and lower extremities. Lower extremity edema is improved significantly MUSCULOSKELETAL: Muscle strength and tone normal. SPINE: No scoliosis or deformity SKIN: No rashes CENTRAL NERVOUS SYSTEM: Alert and oriented -3. No focal deficits, tone is no rmal in all 4 extremities. PSYCHIATRIC: Alert and oriented -3. Appropriate affect. Intact judgment and insight. - Labs CBC & Chem 7: 05/26/19 07:36 05/27/19 06:33 Labs: Abnormal Lab Results - Last 24 Hours (Table) 05/26/19 05/26/19 05/26/19 Range/Units 12:06 16:59 20:48 Sodium (137-145) mmol/L BUN (7-17) mg/dL Creatinine (0.52-1.04) mg/dL Glucose (74-99) mg/dL POC Glucose (mg/dL) 363 H 184 H 252 H (75-99) mg/dL Calcium (8.4-10.2) mg/dL 05/27/19 05/27/19 Range/Units 06:33 07:15 Sodium 132 L (137-145) mmol/L BUN 51 H (7-17) mg/dL Creatinine 2.60 H (0.52-1.04) mg/dL Glucose 157 H (74-99) mg/dL POC Glucose (mg/dL) 180 H (75-99) mg/dL Calcium 7.8 L (8.4-10.2) mg/dL Assessment and Plan Plan: #1. Acute dyspnea related to acute exacerbation of diastolic congestive heart failure , improving with diuretics and there is improvement in lower extremity edema. There is improvement in her shortness of breath and the patient is responding nicely to diuretics. #2. Recent hospitalization for acute tracheobronchitis #3. Suspect underlying bronchial asthma, however patient has not been following up in the outpatient clinic for outpatient PFT #4. Moderate aortic stenosis with moderate to severe pulmonary hypertension related to her valvular heart disease. The patient has hypertensive heart disease with concentric LVH. Left ventricular ejection fraction is preserved. #5. Chronic congestive heart failure with diastolic dysfunction and EF of 60- 65% #6. Diabetes mellitus type 2, poorly controlled #7. Chronic stage III kidney disease with a component of acute kidney injury in the creatinine is up to 2.5 currently on IV Lasix #8. Lifetime nonsmoker #9. History of diverticulitis #10. History of bowel obstruction with surgical repair #11. Hypertension #12. Hyperlipidemia #13. Lower extremity edema Plan Monitor renal function with creatinine stable at 2.6 Continue IV Lasix for another 24 hours and switch her to oral as of tomorrow Discussed with inside account representative the possibility of a RODRIGO regarding her severity Renal function is stable. Edema is improving. In fact lower extremity edema is much improved Shortness of breath is improving , assessment the patient's oxygenation on room air with activity and at rest We'll continue to follow.
[2019-05-27] MEDS: SODIUM CHLORIDE 0.9% 1,000 ML IV SCH (11:41)
[2019-05-27 12:12] LABS: Glucose,Whole Blood 302 mg/dL (75-99)
[2019-05-27] MEDS: ACETAMINOPHEN TAB 325 MG TAB PO PRN (16:26)
[2019-05-27 16:44] LABS: Glucose,Whole Blood 261 mg/dL (75-99)
--- NOTE | 2019-05-27 19:20 | P.PN ---
Subjective Progress Note Date: 05/27/19 This nice 79-year-old female with history of diastolic CHF is admitted to the hospital with increasing shortness of breath, wheezing and also pedal edema. Patient is treated with IV diuretics along with antibiotic and steroids. Patient is feeling better. Less short of breath. Her echo Cardigan showed p reserved LV function with moderate aortic stenosis. There is concern regarding possibility of severe aortic stenosis. A RODRIGO examination is requested. Patient however doesn't want to have any procedures. We'll continue current medical therapy. switched to by mouth diuretics Objective - Vital Signs Vital signs: Vital Signs Temp 98.5 F 05/27/19 14:29 Pulse 84 05/27/19 15:58 Resp 16 05/27/19 15:22 BP 120/71 05/27/19 14:29 Pulse Ox 91 L 05/27/19 14:29 Intake & Output 05/27/19 05/27/19 05/28/19 06:59 18:59 06:59 Weight 85 kg Other: Voiding Method Toilet Toilet # Voids 1 - Exam GENERAL EXAM: Patient is alert and oriented and doesn't appear to be in any acute distress HEENT: Normocephalic. Normal reaction of pupils, equal size, normal range of extraocular motion. No erythema or exudates in the throat. NECK: No masses, no nuchal rigidity. CHEST: No chest wall deformity. LUNGS: Expiratory wheezes but appeared to be less intense HEART: S1 and S2 normal with no audible mumurs or gallops. Regular rhythm, femorals equal on both sides.. ABDOMEN: No hepatosplenomegaly, normal bowel sounds, no guarding or rigidity. SKIN: No rashes CENTRAL NERVOUS SYSTEM: No focal deficits. EXTREMITIES: No cyanosis, clubbing or edema. - Labs CBC & Chem 7: 05/26/19 07:36 05/27/19 06:33 Labs: Abnormal Lab Results - Last 24 Hours (Table) 05/26/19 05/27/19 05/27/19 Range/Units 20:48 06:33 07:15 Sodium 132 L (137-145) mmol/L BUN 51 H (7-17) mg/dL Creatinine 2.60 H (0.52-1.04) mg/dL Glucose 157 H (74-99) mg/dL POC Glucose (mg/dL) 252 H 180 H (75-99) mg/dL Calcium 7.8 L (8.4-10.2) mg/dL 05/27/19 05/27/19 Range/Units 12:10 16:42 Sodium (137-145) mmol/L BUN (7-17) mg/dL Creatinine (0.52-1.04) mg/dL Glucose (74-99) mg/dL POC Glucose (mg/dL) 302 H 261 H (75-99) mg/dL Calcium (8.4-10.2) mg/dL Assessment and Plan (1) Aortic stenosis Current Visit: Yes Status: Acute Code(s): I35.0 - NONRHEUMATIC AORTIC (VALVE) STENOSIS SNOMED Code(s): 76308529 (2) CHF exacerbation Current Visit: Yes Status: Acute Code(s): I50.9 - HEART FAILURE, UNSPECIFIED SNOMED Code(s): 365449563 (3) Acute exacerbation of chronic obstructive airways disease Current Visit: No Status: Acute Code(s): J44.1 - CHRONIC OBSTRUCTIVE PULMONARY DISEASE W (ACUTE) EXACERBATION SNOMED Code(s): 345229804 (4) Diabetes mellitus Current Visit: No Status: Acute Code(s): E11.9 - TYPE 2 DIABETES MELLITUS WITHOUT COMPLICATIONS SNOMED Code(s): 15489234 Plan: Continue current medical therapy. Patient had lost weight and edema is down. Patient doesn't want to have a RODRIGO. Prognosis is guarded
[2019-05-27 22:22] LABS: Glucose,Whole Blood 203 mg/dL (75-99)
--- NOTE | 2019-05-27 23:16 | PN ---
PROGRESS NOTE This is a 79-year-old white female, COPD exacerbation, hypoxemia, diastolic heart failure, chronic renal disease stage IV. Leg edema is decreasing with IV Lasix. Breathing treatments are being given. Antibiotics are being given. Patient is slowly improving. Cardiovascular: S1, S2. Lungs are clear. GI soft. Hematology: Negative Homans. She has 2+ pedal edema. She has ANAI hoses on. Psych: Fair mood and affect. ASSESSMENT: 1. Acute diastolic heart failure. 2. Chronic obstructive pulmonary disease exacerbation. 3. Acute on chronic hypoxemic respiratory failure. Continue current treatment and breathing treatments, Lasix, antibiotics. PROGNOSIS: Guarded. Follow up in the next 24-48 hours. Continue PT/OT and ambulation. MMODL / IJN: [id number] /
[2019-05-28 06:40] LABS: Potassium 4.2 mmol/L (3.5-5.1)
[2019-05-28 07:10] LABS: Glucose,Whole Blood 183 mg/dL (75-99)
[2019-05-28] MEDS: IPRATROPIUM-ALBUTEROL 3 ML NEB INHALATION SCH ×4 (07:23→21:03)
[2019-05-28] MEDS: INSULIN ASPART (NovoLOG) 100 UNIT/ML VIAL SQ SCH ×4 (08:16→21:16)
[2019-05-28] MEDS: FUROSEMIDE 10 MG/ML 10 ML VIAL IV SCH (08:16)
[2019-05-28] MEDS: ISOSORBIDE MONONITRATE ER 30 MG TAB.ER.24H PO SCH (08:17)
[2019-05-28] MEDS: hydrALAZINE HCL 50 MG TAB PO SCH ×3 (08:17→21:16)
[2019-05-28] MEDS: ATORVASTATIN 40 MG TAB PO SCH (08:17)
[2019-05-28] MEDS: BENZONATATE 100 MG CAP PO PRN (08:17)
[2019-05-28] MEDS: amLODIPine 10 MG TAB PO SCH (08:17)
[2019-05-28] MEDS: PANTOPRAZOLE 40 MG TABLET PO SCH (08:17)
[2019-05-28] MEDS: POTASSIUM CHLORIDE ER 20 MEQ TAB.ER PO SCH (08:17)
[2019-05-28] MEDS: ATENOLOL 25 MG TAB PO SCH ×2 (08:17→21:15)
[2019-05-28] MEDS: SODIUM BICARBONATE TAB 650 MG TAB PO SCH ×2 (08:17→21:16)
[2019-05-28] MEDS: PIOGLITAZONE 30 MG TAB PO SCH (08:18)
[2019-05-28] MEDS ORDERED: IPRATROPIUM-ALBUTEROL 3 ML NEB INHALATION PRN (11:20)
[2019-05-28] MEDS ORDERED: guaiFENesin-Coden 100-10MG/5ML 10 ML CUP PO PRN (11:22)
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
[2019-05-28 12:20] LABS: Glucose,Whole Blood 218 mg/dL (75-99)
--- NOTE | 2019-05-28 12:23 | P.PN ---
Subjective Progress Note Date: 05/28/19 79-year-old white female patient of Dr. Alexander Sarkar, with past medical history of hypertension, hyperlipidemia, osteoarthritis, diabetes mellitus type 2, chronic kidney disease stage III, lifetime nonsmoker, chronic congestive heart failure with diastolic dysfunction with EF between 60-65%, moderate aortic stenosis, mild MR, mild TR, moderate pulmonary hypertension with right-sided pressures of 55 mmHg. Patient was recently hospitalized in early April for shortness of breath related to acute tracheobronchitis. Patient was managed with IV steroids, nebulized bronchodilators. Patient also had worsening of her renal function during that admission related to diuretic therapy, she follows with Dr. Fontana for her history of CK-MB, she clinically improved and was discharged home. On 05/23/2019 patient presented to her PCPs office with complaints of worsening dyspnea, fatigue, exertional dyspnea and orthopnea, she denies any chest pain, denies any fever or chills, she states she has no appeti te, but no nausea vomiting or diarrhea. She states she can hardly get dressed because she is so fatigued and weak. She denies any weight gain, however she has significant amount of lower extremity edema 2+ pitting edema. Chest x-ray was obtained, showing cardiomegaly, and probable subsegmental basilar atelectatic changes. No acute pulmonary process, lab work showed a white blood cell count is 6.9, hemoglobin of 10.5, sodium is 131, the rest of the electrolytes were within normal limits, BUN 62, creatinine is 2.23 glucose was 323, proBNP was 8840. Room air pulse ox is 91%, patient is afebrile, hemodynamically patient is stable. D-dimer and troponins are pending, patient has some end expiratory wheezes, no significant cough or congestion. Breathing treatments have been started. On 05/24/2019 patient seen in follow-up on the general medical floor, she still states she is dyspneic with exertion, does not appear to be in any acute distress, she is on room air, no complaints of chest pain, still significant edema in bilateral lower extremities 1-2+, patient has been on oral diuretics, she has been transitioned to IV diuretics and 60 mg twice daily per cardiology. Lung sounds are clear, no rhonchi, no wheezing, no rales. Cardiology is following. Troponins were mildly elevated at 0.039, 0.036, 0.037. On 05/25/2019, the patient is feeling better compared to yesterday. She still has edema in lower extremities. Over, based on the fluid balance, the patient has lost approximately 2 kg since yesterday. She is less short of breath compared to yesterday. She is on IV Lasix milligrams IV push every 12 hours. Creatinine is up to 2.5. ProBNP level was elevated in the 8000 range. No chest pain. No angina. There is a cardiac murmur that was noted and the patient has moderate degree of pulmonary hypertension along with moderate degree of aortic stenosis. Her ejection fraction is in the order of 60-65% and she has diastolic heart failure in addition to chronic stage III kidney disease. Other comorbidities including hypertension and hyperlipidemia and diabetes mellitus type 2. On 05/26/2019 and seeing the patient for a follow-up. She is resting comfortably in bed. Reportedly improvement in her shortness of breath. She is also reporting improvement in the lower extremity edema. No fever. No chills. Creatinine is stable at 2.5. She is taking Lasix 60 mg IV push every 12 hours. She had a negative fluid balance. She has diabetes another liter since yesterday. No other significant complaints. No fever. No chills. No cough. No sputum production. No symptoms of bronchitis or pneumonia at this point in time. The patient is no other complaints. On 05/27/2019 and seeing the patient for a follow-up. Gradually improving. Lower extremity edema is nearly recovered. Creatinine stable at 2.6. Still on IV Lasix. Most of the shortness of breath. I took her off the oxygen and I want to see if she is able to maintain her pulse ox above 90%. No significant sputum production. No chest pain. No pleurisy. No cardiac arrhythmias. The patient is seen today 05/28/2019 in follow-up on the regular medical floor. She is awake and alert in no acute distress. She is continuing to utilize oxygen at 2 L/m per nasal cannula with low O2 saturations on room air. She states her breathing is improved. She has a dry nonproductive cough. No fever, chills or night sweats. She does have worsening renal failure with a creatinine of 2.94. She is currently on Lasix 60 mg by mouth twice a day. Objective - Vital Signs Vital signs: Vital Signs Temp 98.1 F 05/28/19 06:27 Pulse 79 05/28/19 11:06 Resp 17 05/28/19 06:27 BP 135/63 05/28/19 06:27 Pulse Ox 94 L 05/28/19 07:23 Intake & Output 05/27/19 05/28/19 05/28/19 18:59 06:59 18:59 Weight 85.5 kg Other: Voiding Method Toilet Toilet Toilet # Voids 1 - Exam GENERAL EXAM: Alert, very pleasant, 79-year-old female, comfortable in no apparent distress. HEAD: Normocephalic/atraumatic. EYES: Normal reaction of pupils, equal size. Conjunctiva pink, sclera white. NOSE: Clear with pink turbinates. THROAT: No erythema or exudates. NECK: No masses, no JVD, no thyroid enlargement, no adenopathy. CHEST: No chest wall deformity. Symmetrical expansion. LUNGS: Diminished air entry with end expiratory wheezes CVS: Regular rate and rhythm, normal S1 and S2, no gallops, no murmurs, no rubs ABDOMEN: Soft, nontender. No hepatosplenomegaly, normal bowel sounds, no guarding or rigidity. EXTREMITIES: No clubbing, no cyanosis, 2+ pulses and upper and lower extremities. Lower extremity edema is improved significantly MUSCULOSKELETAL: Muscle strength and tone normal. SPINE: No scoliosis or deformity SKIN: No rashes CENTRAL NERVOUS SYSTEM: Alert and oriented -3. No focal deficits, tone is normal in all 4 extremities. PSYCHIATRIC: Alert and oriented -3. Appropriate affect. Intact judgment and insight. - Labs CBC & Chem 7: 05/26/19 07:36 05/28/19 06:06 Labs: Abnormal Lab Results - Last 24 Hours (Table) 05/27/19 05/27/19 05/28/19 Range/Units 16:42 22:17 06:06 Sodium 131 L (137-145) mmol/L BUN 51 H (7-17) mg/dL Creatinine 2.94 H (0.52-1.04) mg/dL Glucose 146 H (74-99) mg/dL POC Glucose (mg/dL) 261 H 203 H (75-99) mg/dL Calcium 8.0 L (8.4-10.2) mg/dL 05/28/19 Range/Units 07:06 Sodium (137-145) mmol/L BUN (7-17) mg/dL Creatinine (0.52-1.04) mg/dL Glucose (74-99) mg/dL POC Glucose (mg/dL) 183 H (75-99) mg/dL Calcium (8.4-10.2) mg/dL Assessment and Plan Assessment: #1. Acute dyspnea related to acute exacerbation of diastolic congestive heart failure , improving with diuretics and there is improvement in lower extremity edema. There is improvement in her shortness of breath and the patient is responding nicely to diuretics, however worsening renal failure with a creatinine of 2.94 today.. #2. Recent hospitalization for acute tracheobronchitis #3. Suspect underlying bronchial asthma, however patient has not been following up in the outpatient clinic for outpatient PFT #4. Moderate aortic stenosis with moderate to severe pulmonary hypertension related to her valvular heart disease. The patient has hypertensive heart disease with concentric LVH. Left ventricular ejection fraction is preserved. #5. Chronic congestive heart failure with diastolic dysfunction and EF of 60- 65% #6. Diabetes mellitus type 2, poorly controlled #7. Chronic stage III kidney disease with a component of acute kidney injury in the creatinine is up to 2.5 currently on IV Lasix #8. Lifetime nonsmoker #9. History of diverticulitis #10. History of bowel obstruction with surgical repair #11. Hypertension #12. Hyperlipidemia #13. Lower extremity edema Plan The patient was seen and evaluated by Dr. Rodriguez. She is stable from the pulmonary standpoint. She does have worsening renal function. Diuretics per cardiology. Continue current pulmonary medications. We'll continue to follow. She needs to be evaluated for possible home oxygen prior to discharge. I, the cosigning physician, performed a history & physical examination of the patient. Lungs sounds with faint bilateral end expiratory wheeze, diminished. Maintaining good O2 saturations in the 90s on 2 L/m per nasal cannula. I d iscussed the assessment and plan of care with my nurse practitioner, Jailene Clarke. I attest to the above note as dictated by her.
[2019-05-28] MEDS: SODIUM CHLORIDE 0.9% 1,000 ML IV SCH (13:26)
[2019-05-28] MEDS: FUROSEMIDE 20 MG TAB PO SCH (16:50)
[2019-05-28 16:55] LABS: Glucose,Whole Blood 147 mg/dL (75-99)
--- NOTE | 2019-05-28 17:32 | P.PN ---
Subjective Progress Note Date: 05/28/19 This nice 79-year-old female with history of diastolic CHF is admitted to the hospital with increasing shortness of breath, wheezing and also pedal edema. Patient is treated with IV diuretics along with antibiotic and steroids. Patient is feeling better. Less short of breath. Her echo Cardigan showed p reserved LV function with moderate aortic stenosis. There is concern regarding possibility of severe aortic stenosis. A RODRIGO examination is requested. Patient however doesn't want to have any procedures. We'll continue current medical therapy. switched to by mouth diuretics. 05/28/2019: This patient is a complaining of being tired and having cough. Clinically her lungs appeared to be clear with the less wheezing. Her heart is regular. Edema has gone down. Patient has lost weight. Patient will continue current medical therapy. IV diuretics discontinued. Patient is by mouth diur etics. Her creatinine has gone up that needs to be closely monitored. Patient doesn't want to have a RODRIGO. Continue current management and follow electrolytes Objective - Vital Signs Vital signs: Vital Signs Temp 98.6 F 05/28/19 13:27 Pulse 88 05/28/19 16:32 Resp 18 05/28/19 15:22 BP 108/60 05/28/19 13:27 Pulse Ox 94 L 05/28/19 13:27 Intake & Output 05/27/19 05/28/19 05/28/19 18:59 06:59 18:59 Weight 85.5 kg Other: Voiding Method Toilet Toilet Toilet # Voids 1 - Exam GENERAL EXAM: Patient is alert and oriented and doesn't appear to be in any acute distress HEENT: Normocephalic. Normal reaction of pupils, equal size, normal range of extraocular motion. No erythema or exudates in the throat. NECK: No masses, no nuchal rigidity. CHEST: No chest wall deformity. LUNGS: Expiratory wheezes but appeared to be less intense HEART: S1 and S2 normal with no audible mumurs or gallops. Regular rhythm, femorals equal on both sides.. ABDOMEN: No hepatosplenomegaly, normal bowel sounds, no guarding or rigidity. SKIN: No rashes CENTRAL NERVOUS SYSTEM: No focal deficits. EXTREMITIES: No cyanosis, clubbing resolving edema - Labs CBC & Chem 7: 05/26/19 07:36 05/28/19 06:06 Labs: Abnormal Lab Results - Last 24 Hours (Table) 05/27/19 05/28/19 05/28/19 Range/Units 22:17 06:06 07:06 Sodium 131 L (137-145) mmol/L BUN 51 H (7-17) mg/dL Creatinine 2.94 H (0.52-1.04) mg/dL Glucose 146 H (74-99) mg/dL POC Glucose (mg/dL) 203 H 183 H (75-99) mg/dL Calcium 8.0 L (8.4-10.2) mg/dL 05/28/19 05/28/19 Range/Units 12:17 16:53 Sodium (137-145) mmol/L BUN (7-17) mg/dL Creatinine (0.52-1.04) mg/dL Glucose (74-99) mg/dL POC Glucose (mg/dL) 218 H 147 H (75-99) mg/dL Calcium (8.4-10.2) mg/dL Assessment and Plan (1) Aortic stenosis Current Visit: Yes Status: Acute Code(s): I35.0 - NONRHEUMATIC AORTIC (VALVE) STENOSIS SNOMED Code(s): 62703564 (2) CHF exacerbation Current Visit: Yes Status: Acute Code(s): I50.9 - HEART FAILURE, UNSPECIFIED SNOMED Code(s): 206957543 (3) Acute exacerbation of chronic obstructive airways disease Current Visit: No Status: Acute Code(s): J44.1 - CHRONIC OBSTRUCTIVE PULMONARY DISEASE W (ACUTE) EXACERBATION SNOMED Code(s): 939515211 (4) Diabetes mellitus Current Visit: No Status: Acute Code(s): E11.9 - TYPE 2 DIABETES MELLITUS WITHOUT COMPLICATIONS SNOMED Code(s): 69879943 Plan: Change IV diuretics to by mouth diuretics. Increase activity. Patient doesn't want to have a RODRIGO.
[2019-05-28 20:20] LABS: Glucose,Whole Blood 261 mg/dL (75-99)
[2019-05-28] MEDS: BUDESONIDE 0.5 MG/2 ML NEBU INHALATION SCH (21:03)
--- NOTE | 2019-05-29 02:14 | XR ---
EXAMINATION TYPE: XR chest 1V portable DATE OF EXAM: 05/29/2019 COMPARISON: 05/23/2019 HISTORY: Hypoxemia TECHNIQUE: Single view FINDINGS: Heart is enlarged. There is pulmonary edema. There is some blunting of the costophrenic ang les. Bony thorax is intact. IMPRESSION: Congestive heart failure and pulmonary edema and pleural fluid that appears significantly increased compared to last exam.
[2019-05-29 03:51] LABS: Calcium 8.1 mg/dL (8.4-10.2); Potassium 4.8 mmol/L (3.5-5.1); Total Bilirubin 0.7 mg/dL (0.2-1.3); Total Protein 5.2 g/dL (6.3-8.2)
[2019-05-29 07:01] LABS: Glucose,Whole Blood 172 mg/dL (75-99)
[2019-05-29] MEDS: FUROSEMIDE 20 MG TAB PO SCH (07:32)
[2019-05-29] MEDS: ISOSORBIDE MONONITRATE ER 30 MG TAB.ER.24H PO SCH (07:32)
[2019-05-29] MEDS: INSULIN ASPART (NovoLOG) 100 UNIT/ML VIAL SQ SCH ×4 (07:32→21:35)
[2019-05-29] MEDS: ATORVASTATIN 40 MG TAB PO SCH (07:32)
[2019-05-29] MEDS: SODIUM BICARBONATE TAB 650 MG TAB PO SCH ×2 (07:32→21:34)
[2019-05-29] MEDS: ATENOLOL 25 MG TAB PO SCH ×2 (07:32→21:34)
[2019-05-29] MEDS: hydrALAZINE HCL 50 MG TAB PO SCH ×3 (07:32→21:34)
[2019-05-29] MEDS: amLODIPine 10 MG TAB PO SCH (07:32)
[2019-05-29] MEDS: POTASSIUM CHLORIDE ER 20 MEQ TAB.ER PO SCH (07:33)
[2019-05-29] MEDS: PANTOPRAZOLE 40 MG TABLET PO SCH (07:33)
[2019-05-29] MEDS: PIOGLITAZONE 30 MG TAB PO SCH (07:33)
[2019-05-29] MEDS: IPRATROPIUM-ALBUTEROL 3 ML NEB INHALATION SCH ×4 (08:35→19:35)
[2019-05-29] MEDS: BUDESONIDE 0.5 MG/2 ML NEBU INHALATION SCH ×2 (08:35→19:38)
--- NOTE | 2019-05-29 10:45 | P.NPCON ---
History of Present Illness - Reason for Consult acute renal failure, chronic renal failure - History of Present Illness Reason for consultation: Acute kidney injury on chronic kidney disease History of present illness: Patient is a 79-year-old female seen in renal consultation for acute kidney injury on chronic knee disease. Patient presented to the hospital on 05/23/2019 shortness of breath. Patient was also quite weak and was not able to ambulate even short distances. Patient also admitted to swelling in her lower extremities on admission. Patient was taking Lasix at home. This admission she was started on IV Lasix 60 mg twice daily which was then changed over to oral Lasix on 05/28/2019. This morning she received 60 mg of oral Lasix and all diuretics were discontinued due to worsening renal function. Patient's creatinine today is up to 3.22. Sodium level is also low at 128. Patient states last night she became short of breath and could not catch her. She is currently on 4 L nasal cannula. Patient's chest x-ray done last night is suggestive of pulmonary edema. She admits to good urine output. No hematuria or dysuria. Denies use of nonsteroidals. Hemodynamically she stable. Her blood pressure has been relatively well controlled this admission. Patient has history of chronic diastolic CHF with moderate aortic stenosis. Patient's son was on hemodialysis and is now . She denies fever or chills. No cough. Vital signs are stable. General: The patient appeared well nourished and normally developed. HEENT: Head exam is unremarkable. Neck is without jugular venous distension. LUNGS: Breath sounds decreased. HEART: Rate and Rhythm are regular. First and second heart sounds normal. No murmurs, rubs or gallops. ABDOMEN: Abdominal exam reveals normal bowel sounds. Non-tender and non- distended. No evidence of peritonitis. EXTREMITITES: Trace edema. Past Medical History Past Medical History: COPD, Diabetes Mellitus, Hyperlipidemia, Hypertension, Osteoarthritis (OA), Pneumonia, Renal Disease Additional Past Medical History / Comment(s): COPD, NIDDM type II, diverticulitis, lower GI bleed, bowel obstructions with surgery, ckd stage 3 History of Any Multi-Drug Resistant Organisms: None Reported Past Surgical History: Cholecystectomy, Hysterectomy, Tonsillectomy, Tubal Ligation Additional Past Surgical History / Comment(s): EGDs/colonoscopies, bowel resections due to obstruction x2, bilateral cataracts removed. Past Anesthesia/Blood Transfusion Reactions: No Reported Reaction Past Psychological History: No Psychological Hx Reported Additional Psychological History / Comment(s): Pt resides alone in an apartment. She uses no assistive device. She drives. Smoking Status: Never smoker Past Alcohol Use History: None Reported Past Drug Use History: None Reported - Past Family History Mother Family Medical History: No Reported History Additional Family Medical History / Comment(s): Mother was healthy and lived to be 79yrs old. Brother(s) Family Medical History: Diabetes Mellitus Medications and Allergies Home Medications Medication Instructions Recorded Confirmed Type Potassium Chloride ER [K-Dur 20] 20 meq PO DAILY 05/03/19 05/23/19 History Atorvastatin [Lipitor] 40 mg PO DAILY 05/04/19 05/23/19 History Pioglitazone [Actos] 30 mg PO DAILY 05/04/19 05/23/19 History Atenolol [Tenormin] 25 mg PO BID #30 tab 05/11/19 05/23/19 Rx Pantoprazole [Protonix] 40 mg PO AC-BRKFST #30 tablet. 05/11/19 05/23/19 Rx Sodium Bicarbonate Tab 650 mg PO BID #20 tab 05/11/19 05/23/19 Rx amLODIPine [Norvasc] 10 mg PO DAILY #30 tab 05/11/19 05/23/19 Rx Albuterol Nebulized [Ventolin 2.5 mg INHALATION RT-TID PRN 05/23/19 05/23/19 History Nebulized] Benzonatate [Tessalon Perles] 100 mg PO TID PRN 05/23/19 05/23/19 History Furosemide [Lasix] 40 mg PO AC-BID 05/23/19 05/23/19 History Allergies Allergy/AdvReac Type Severity Reaction Status Date / Time Penicillins Allergy Severe Rash/Hives Verified 05/23/19 14:04 codeine Allergy Rash/Hives Verified 05/23/19 14:04 diphenhydramine HCl Allergy Swelling Verified 05/23/19 14:04 [From Benadryl] erythromycin base Allergy Rash/Hives Verified 05/23/19 14:04 Iodinated Contrast Media Allergy Rash/Hives Verified 05/23/19 14:04 [Iodinated Contrast Media - IV Dye] iodine Allergy Rash/Hives Verified 05/23/19 14:04 Sulfa (Sulfonamide Allergy Rash/Hives Verified 05/23/19 14:04 Antibiotics) Tetanus Vaccines and Toxoid Allergy Unknown Verified 05/23/19 14:04 [Tetanus Vaccines & Toxoid] Tetracyclines Allergy Rash/Hives Verified 05/23/19 14:04 aspirin AdvReac GI Bleed Verified 05/23/19 14:04 Physical Exam Vitals: Vital Signs Temp Pulse Pulse Resp BP Pulse Ox 05/29/19 08:52 84 05/29/19 08:35 81 18 98 05/29/19 08:00 18 05/29/19 05:00 96.9 F L 82 20 132/73 96 05/29/19 01:46 88 05/29/19 01:37 83 L 05/29/19 01:29 84 05/28/19 21:19 84 05/28/19 21:05 80 05/28/19 21:00 99.5 F 82 20 119/65 95 05/28/19 16:32 88 05/28/19 16:23 84 05/28/19 15:22 18 05/28/19 13:27 98.6 F 82 18 108/60 94 L 05/28/19 11:06 79 05/28/19 10:55 78 Intake and Output 05/28/19 05/29/19 05/29/19 22:59 06:59 14:59 Other: Voiding Method Toilet Toilet Toilet Weight 84 kg Results - Lab Results Most recent lab results Calcium 8.1 mg/dL (8.4-10.2) L 05/29/19 03:18 Magnesium 1.8 mg/dL (1.6-2.3) 05/24/19 05:19 05/26/19 07:36 05/29/19 03:18 Assessment and Plan Plan: Assessment: 1. Acute kidney injury mostly prerenal secondary to cardiorenal syndrome. Creatinine up to 3.22 today. 2. Chronic kidney disease stage III with baseline creatinine in the range of 1.5-1.7 in April 2016 to April 2017. However this year her renal function has been worse with creatinine near 2.5. There is concern for progression of underlying chronic kidney disease. Ultrasound from earlier this month revealed small sized kidneys without any hydronephrosis. UA from earlier this month revealed trace proteinuria, otherwise benign. 3. Acute on chronic diastolic CHF with moderate aortic stenosis. 4. Volume overload with pulmonary edema. 5. Hyponatremia, currently hypervolemic. 6. Hypertension with chronic kidney disease. Controlled. 7. History of COPD. 8. Diabetes mellitus. Plan: Start Lasix drip at 5 mL an hour. Low-salt diet and 1500 mL fluid restriction. Repeat chest x-ray tomorrow. Avoid nephrotoxins. Strict I's and O's. Repeat electrolytes in the morning. Patient states that she does not want any form of renal replacement therapy if indicated. Discussed with the patient and her daughter present at bedside. Thank you for the consultation. I will continue to follow the patient with you during her hospital stay.
--- NOTE | 2019-05-29 11:57 | P.PN ---
Subjective HISTORY OF PRESENTING ILLNESS This is a pleasant 79-year-old female past medical history significant for COPD, diabetes mellitus, hypertension, chronic kidney disease, chronic diastolic heart failure, pulmonary hypertension and aortic stenosis. She denies prior history of coronary artery disease and does not follow in the office with a contract administrator. She is seen and examined sitting up in bed. She continues to feel short of breath with exertion however she has noticed some slight improvement. Lower extremity edema is improving but still ongoing. Weight is down another 1 kg today for a total of 2 since admission. Maintaining negative fluid balance. Laboratory data reviewed, hgb 8.1, plt 180, sodium 133, potassium 4.5, creatinine 2.52. Blood pressure 128/72 heart rate 84 afebrile. Currently maintained on lasix 60 mg IV BID, amlodipine 10 mg daily, atenolol 25 mg BID, atorvastatin 40 mg daily, imdur 30 mg daily and hydralazine 50 mg TID. 05/29/2019 She is seen and examined sitting up in bed with daughter at the bedside. She co ntinues to feel short of breath with minimal activity. Yesterday her IV lasix was transitioned to PO per primary care team. Laboratory data reviewed, sodium 128, potassium 4.8, creatinine 3.22 with GFR 13. Blood pressure 132/73 heart rate 84 afebrile and maintaining oxygen saturation on nasal cannula. Repeat chest xray today revealed CHF and pulmonary edema increased from previous exam. PHYSICAL EXAMINATION CONSTITUTIONAL: No apparent distress. HEENT: Head is normocephalic. Pupils are equal, round. Sclerae anicteric. Mucous membranes of the mouth are moist. JVD is evident bilaterally. No carotid bruit. CHEST EXAMINATION: Bibasilar rales, no rhonchi or wheezes. No chest wall tenderness is noted on palpation or with deep breathing. HEART EXAMINATION: Regular rate and rhythm. S1, S2 heard. Systolic ejection murmur at the base, no gallops or rub. EXTREMITIES: 2+ peripheral pulses, 1+ bilateral lower extremity pitting edema and no calf tenderness. ASSESSMENT Acute on chronic diastolic heart failure Hyponatremia Hypertension, uncontrolled Acute on chronic renal failure Elevated troponin secondary to chronic renal failure. Enzymes are flat and not suggestive of an acute event. Diabetes mellitus Valvular heart disease Pulmonary hypertension COPD PLAN Ongoing diuresis and lasix management per nephrology. Dr. Watts is recommend lasix infusion. Lengthy discussion with the patient and her daughter regarding heart failure and worsening kidney function. Follow renal function and electrolytes daily. Strict intake and output along with daily weights. Patient is being transferred to telemetry unit secondary to lasix infusion. Nurse Practitioner note has been reviewed, I agree with a documented findings and plan of care. Patient was seen and examined. Objective - Vital Signs Vital signs: Vital Signs Temp 96.9 F L 05/29/19 05:00 Pulse 84 05/29/19 08:52 Resp 18 05/29/19 08:35 BP 132/73 05/29/19 05:00 Pulse Ox 98 05/29/19 08:35 Intake & Output 05/28/19 05/29/19 05/29/19 18:59 06:59 18:59 Weight 84 kg Other: Voiding Method Toilet Toilet Toilet - Labs CBC & Chem 7: 05/26/19 07:36 05/29/19 03:18 Labs: Abnormal Lab Results - Last 24 Hours (Table) 05/28/19 05/28/19 05/28/19 Range/Units 12:17 16:53 20:18 Sodium (137-145) mmol/L Chloride (98-107) mmol/L BUN (7-17) mg/dL Creatinine (0.52-1.04) mg/dL Glucose (74-99) mg/dL POC Glucose (mg/dL) 218 H 147 H 261 H (75-99) mg/dL Calcium (8.4-10.2) mg/dL Total Protein (6.3-8.2) g/dL Albumin (3.5-5.0) g/dL 05/29/19 05/29/19 Range/Units 03:18 06:58 Sodium 128 L (137-145) mmol/L Chloride 95 L (98-107) mmol/L BUN 51 H (7-17) mg/dL Creatinine 3.22 H (0.52-1.04) mg/dL Glucose 177 H (74-99) mg/dL POC Glucose (mg/dL) 172 H (75-99) mg/dL Calcium 8.1 L (8.4-10.2) mg/dL Total Protein 5.2 L (6.3-8.2) g/dL Albumin 3.0 L (3.5-5.0) g/dL
--- NOTE | 2019-05-29 12:29 | P.PN ---
Subjective Progress Note Date: 05/29/19 79-year-old white female patient of Dr. Alexander Sarkar, with past medical history of hypertension, hyperlipidemia, osteoarthritis, diabetes mellitus type 2, chronic kidney disease stage III, lifetime nonsmoker, chronic congestive heart failure with diastolic dysfunction with EF between 60-65%, moderate aortic stenosis, mild MR, mild TR, moderate pulmonary hypertension with right-sided pressures of 55 mmHg. Patient was recently hospitalized in early April for shortness of breath related to acute tracheobronchitis. Patient was managed with IV steroids, nebulized bronchodilators. Patient also had worsening of her renal function during that admission related to diuretic therapy, she follows with Dr. Fontana for her history of CK-MB, she clinically improved and was discharged home. On 05/23/2019 patient presented to her PCPs office with complaints of worsening dyspnea, fatigue, exertional dyspnea and orthopnea, she denies any chest pain, denies any fever or chills, she states she has no appeti te, but no nausea vomiting or diarrhea. She states she can hardly get dressed because she is so fatigued and weak. She denies any weight gain, however she has significant amount of lower extremity edema 2+ pitting edema. Chest x-ray was obtained, showing cardiomegaly, and probable subsegmental basilar atelectatic changes. No acute pulmonary process, lab work showed a white blood cell count is 6.9, hemoglobin of 10.5, sodium is 131, the rest of the electrolytes were within normal limits, BUN 62, creatinine is 2.23 glucose was 323, proBNP was 8840. Room air pulse ox is 91%, patient is afebrile, hemodynamically patient is stable. D-dimer and troponins are pending, patient has some end expiratory wheezes, no significant cough or congestion. Breathing treatments have been started. On 05/24/2019 patient seen in follow-up on the general medical floor, she still states she is dyspneic with exertion, does not appear to be in any acute distress, she is on room air, no complaints of chest pain, still significant edema in bilateral lower extremities 1-2+, patient has been on oral diuretics, she has been transitioned to IV diuretics and 60 mg twice daily per cardiology. Lung sounds are clear, no rhonchi, no wheezing, no rales. Cardiology is following. Troponins were mildly elevated at 0.039, 0.036, 0.037. On 05/25/2019, the patient is feeling better compared to yesterday. She still has edema in lower extremities. Over, based on the fluid balance, the patient has lost approximately 2 kg since yesterday. She is less short of breath compared to yesterday. She is on IV Lasix milligrams IV push every 12 hours. Creatinine is up to 2.5. ProBNP level was elevated in the 8000 range. No chest pain. No angina. There is a cardiac murmur that was noted and the patient has moderate degree of pulmonary hypertension along with moderate degree of aortic stenosis. Her ejection fraction is in the order of 60-65% and she has diastolic heart failure in addition to chronic stage III kidney disease. Other comorbidities including hypertension and hyperlipidemia and diabetes mellitus type 2. On 05/26/2019 and seeing the patient for a follow-up. She is resting comfortably in bed. Reportedly improvement in her shortness of breath. She is also reporting improvement in the lower extremity edema. No fever. No chills. Creatinine is stable at 2.5. She is taking Lasix 60 mg IV push every 12 hours. She had a negative fluid balance. She has diabetes another liter since yesterday. No other significant complaints. No fever. No chills. No cough. No sputum production. No symptoms of bronchitis or pneumonia at this point in time. The patient is no other complaints. On 05/27/2019 and seeing the patient for a follow-up. Gradually improving. Lower extremity edema is nearly recovered. Creatinine stable at 2.6. Still on IV Lasix. Most of the shortness of breath. I took her off the oxygen and I want to see if she is able to maintain her pulse ox above 90%. No significant sputum production. No chest pain. No pleurisy. No cardiac arrhythmias. The patient is seen today 05/28/2019 in follow-up on the regular medical floor. She is awake and alert in no acute distress. She is continuing to utilize oxygen at 2 L/m per nasal cannula with low O2 saturations on room air. She states her breathing is improved. She has a dry nonproductive cough. No fever, chills or night sweats. She does have worsening renal failure with a creatinine of 2.94. She is currently on Lasix 60 mg by mouth twice a day. The patient is seen today 05/29/2019 in follow-up on the regular medical floor. She is currently sitting up in bed. Awake and alert in no acute distress. Nephrology is at the bedside explaining the plan of care. Her chest x-ray shows increase vascular congestion. Her creatinine is elevated. The plan is for a Lasix drip at 5 mg per hour. She is currently maintaining O2 saturations in the upper 90s on 4 L/m per nasal cannula. Lungs sounds with some crackles in the posterior bases. Diminished. Sodium 128. Potassium 4.8. Creatinine 3.22. Glucose 177. She is continued on DuoNeb inhalations, Tessalon Perles. Objective - Vital Signs Vital signs: Vital Signs Temp 96.9 F L 05/29/19 05:00 Pulse 88 05/29/19 12:04 Resp 18 05/29/19 08:35 BP 132/73 05/29/19 05:00 Pulse Ox 98 05/29/19 08:35 Intake & Output 05/28/19 05/29/19 05/29/19 18:59 06:59 18:59 Weight 84 kg Other: Voiding Method Toilet Toilet Toilet - Exam GENERAL EXAM: Alert, very pleasant, 79-year-old female, on 4 L nasal cannula, comfortable in no apparent distress. HEAD: Normocephalic/atraumatic. EYES: Normal reaction of pupils, equal size. Conjunctiva pink, sclera white. NOSE: Clear with pink turbinates. THROAT: No erythema or exudates. NECK: No masses, no JVD, no thyroid enlargement, no adenopathy. CHEST: No chest wall deformity. Symmetrical expansion. LUNGS: Diminished air entry with end expiratory wheezes, crackles in the posterior bases CVS: Regular rate and rhythm, normal S1 and S2, no gallops, no murmurs, no rubs ABDOMEN: Soft, nontender. No hepatosplenomegaly, normal bowel sounds, no guarding or rigidity. EXTREMITIES: No clubbing, no cyanosis, 2+ pulses and upper and lower extremities. Lower extremity edema is improved significantly MUSCULOSKELETAL: Muscle strength and tone normal. SPINE: No scoliosis or deformity SKIN: No rashes CENTRAL NERVOUS SYSTEM: No focal deficits, tone is normal in all 4 extremities. PSYCHIATRIC: Alert and oriented -3. Appropriate affect. Intact judgment and insight. - Labs CBC & Chem 7: 01/31/20 07:36 05/29/19 03:18 Labs: Abnormal Lab Results - Last 24 Hours (Table) 05/28/19 05/28/19 05/28/19 Range/Units 12:17 16:53 20:18 Sodium (137-145) mmol/L Chloride (98-107) mmol/L BUN (7-17) mg/dL Creatinine (0.52-1.04) mg/dL Glucose (74-99) mg/dL POC Glucose (mg/dL) 218 H 147 H 261 H (75-99) mg/dL Calcium (8.4-10.2) mg/dL Total Protein (6.3-8.2) g/dL Albumin (3.5-5.0) g/dL 05/29/19 05/29/19 Range/Units 03:18 06:58 Sodium 128 L (137-145) mmol/L Chloride 95 L (98-107) mmol/L BUN 51 H (7-17) mg/dL Creatinine 3.22 H (0.52-1.04) mg/dL Glucose 177 H (74-99) mg/dL POC Glucose (mg/dL) 172 H (75-99) mg/dL Calcium 8.1 L (8.4-10.2) mg/dL Total Protein 5.2 L (6.3-8.2) g/dL Albumin 3.0 L (3.5-5.0) g/dL Assessment and Plan Assessment: #1. Acute dyspnea related to acute exacerbation of diastolic congestive heart failure, had been improving with diuretics and there is improvement in lower extremity edema. Today's chest x-ray however showing recurrence of increased pulmonary vascular congestion. Some increased lower extremity edema on oral diuretics. Worsening creatinine. Currently 3.22. The plan is for a Lasix drip at 5 mg per hour per nephrology. #2. Recent hospitalization for acute tracheobronchitis #3. Suspect underlying bronchial asthma, however patient has not been following up in the outpatient clinic for outpatient PFT #4. Moderate aortic stenosis with moderate to severe pulmonary hypertension r elated to her valvular heart disease. The patient has hypertensive heart disease with concentric LVH. Left ventricular ejection fraction is preserved. #5. Chronic congestive heart failure with diastolic dysfunction and EF of 60- 65% #6. Diabetes mellitus type 2, poorly controlled #7. Chronic stage III kidney disease with a component of acute kidney injury in the creatinine is up to 2.5 currently on IV Lasix #8. Lifetime nonsmoker #9. History of diverticulitis #10. History of bowel obstruction with surgical repair #11. Hypertension #12. Hyperlipidemia #13. Lower extremity edema Plan The patient was seen and evaluated by Dr. Valdivia. Chest x-ray and labs reviewed. Recurrent pulmonary vascular congestion. Worsening renal function. Nephrology is on the case. Agree with a Lasix drip. Because of this however the patient would need selective care which is full and she may be an ICU overflow. She is stable from the pulmonary standpoint on 4 L/m per nasal cannula. Continue current pulmonary medications. She needs to be evaluated for possible home oxygen prior to discharge. We'll continue to follow. I, the cosigning physician, performed a history & physical examination of the patient. Lungs sounds with faint bilateral end expiratory wheeze, crackles in the posterior bases diminished. Maintaining good O2 saturations in the 90s on 4 L/m per nasal cannula. I discussed the assessment and plan of care with my nurse practitioner, Jailene Clarke. I attest to the above note as dictated by her.
[2019-05-29 12:31] LABS: Glucose,Whole Blood 204 mg/dL (75-99)
[2019-05-29] MEDS: FUROSEMIDE 100 MG in SODIUM CHLORIDE 0.9% 90 ML IV SCH (12:32)
[2019-05-29] MEDS: SODIUM CHLORIDE 0.9% 1,000 ML IV SCH (12:32)
[2019-05-29 17:01] LABS: Glucose,Whole Blood 305 mg/dL (75-99)
[2019-05-29 21:15] LABS: Glucose,Whole Blood 206 mg/dL (75-99)
[2019-05-30] MEDS: FUROSEMIDE 100 MG in SODIUM CHLORIDE 0.9% 90 ML IV SCH ×2 (04:51→21:53)
[2019-05-30 05:10] LABS: Calcium 7.9 mg/dL (8.4-10.2); Magnesium 1.7 mg/dL (1.6-2.3); Potassium 4.9 mmol/L (3.5-5.1)
[2019-05-30 06:15] LABS: Glucose,Whole Blood 185 mg/dL (75-99)
[2019-05-30] MEDS: INSULIN ASPART (NovoLOG) 100 UNIT/ML VIAL SQ SCH ×4 (06:17→20:17)
[2019-05-30] MEDS: PANTOPRAZOLE 40 MG TABLET PO SCH (06:17)
--- NOTE | 2019-05-30 07:59 | P.PN ---
Subjective Progress Note Date: 05/29/19 Principal diagnosis: Patient is being treated for hypoxic respiratory failure patient doesn't use any oxygen at home patient is presently on 2 L titrating fairly well and patient is wheezing quite a bit and patient does have COPD history as well as CHF patient was started on Pulmicort is unable to sleep because of cough put her on nighttime as needed the Robitussin with codeine. Patient is on Lasix patient is becoming hypernatremic at believe she is becoming hypovolemic has Pedal edema improved because of which I'll switch her Lasix to oral we'll repeat the labs tomorrow again . Creatinine has gone up a little bit today. Constitutional: Denied any fatigue denied any fever. Cardio vascular: denied any chest pain, palpitations Gastrointestinal denied any nausea vomiting Pulmonary: Still bit short of breath and still coughing 05/29/2019 Patient is sitting up in the bed stating that last night she was sitting up unable to sleep and had a brief few moments of feeling like she was unable to get any air and was placed on high flow oxygen and is currently on 4 L of oxygen via nasal cannula. Patient states that she does not use any oxygen at home and is concerned go home but this may happen again. Patient had a chest x-ray showing congestive heart failure and pulmonary edema and pleural fluid that appears significantly increased to prior exam. Patient was also seen by nephrology as her creatinine has worsened and is currently 3.22. Patient was receiving IV Lasix and is being placed on IV Lasix drip. The current unit that she is on does not manage Lasix drips and patient will be moved to the ICU in the selective overflow to be closely monitored. Objective - Vital Signs Vital signs: Vital Signs Temp 97.9 F 05/29/19 12:10 Pulse 95 05/29/19 12:10 Resp 22 05/29/19 12:10 BP 118/63 05/29/19 12:10 Pulse Ox 98 05/29/19 08:35 Intake & Output 05/28/19 05/29/19 05/29/19 18:59 06:59 18:59 Weight 84 kg Other: Voiding Method Toilet Toilet Toilet - Exam GENERAL: The patient is alert and oriented x3, not in any acute distress. Well developed, well nourished. HEENT: Pupils are round and equally reacting to light. EOMI. No scleral icterus. No conjunctival pallor. Normocephalic, atraumatic. No pharyngeal erythema. No thyromegaly. CARDIOVASCULAR: S1 and S2 present. No murmurs, rubs, or gallops. PULMONARY: Diminished breath sounds bilaterally with Expiratory wheezing bilateral significant on exam ABDOMEN: Soft, nontender, nondistended, normoactive bowel sounds. No palpable organomegaly. MUSCULOSKELETAL: No joint swelling or deformity. EXTREMITIES: No cyanosis, clubbing, or pedal edema. NEUROLOGICAL: Gross neurological examination did not reveal any focal deficits. SKIN: No rashes. - Labs CBC & Chem 7: 05/26/19 07:36 05/30/19 04:28 Labs: Abnormal Lab Results - Last 24 Hours (Table) 05/28/19 05/28/19 05/29/19 Range/Units 16:53 20:18 03:18 Sodium 128 L (137-145) mmol/L Chloride 95 L (98-107) mmol/L BUN 51 H (7-17) mg/dL Creatinine 3.22 H (0.52-1.04) mg/dL Glucose 177 H (74-99) mg/dL POC Glucose (mg/dL) 147 H 261 H (75-99) mg/dL Calcium 8.1 L (8.4-10.2) mg/dL Total Protein 5.2 L (6.3-8.2) g/dL Albumin 3.0 L (3.5-5.0) g/dL 05/29/19 05/29/19 Range/Units 06:58 12:29 Sodium (137-145) mmol/L Chloride (98-107) mmol/L BUN (7-17) mg/dL Creatinine (0.52-1.04) mg/dL Glucose (74-99) mg/dL POC Glucose (mg/dL) 172 H 204 H (75-99) mg/dL Calcium (8.4-10.2) mg/dL Total Protein (6.3-8.2) g/dL Albumin (3.5-5.0) g/dL Assessment and Plan Assessment: -Acute hypoxic respiratory failure secondary to congestive heart failure chronic diastolic dysfunction with acute exacerbation. patient is being placed on IV Lasix drip and will continue to monitor intake and output along with vital signs and labs closely -COPD with mild acute exacerbation -moderate carotid stenosis -type 2 diabetes mellitus -Chronic kidney disease stage IV: Current creatinine today has worsened and is 3.22, nephrology has been consulted -History of bowel obstruction with surgical repair in the past -Hypertension -Hyperlipidemia
[2019-05-30] MEDS: SODIUM BICARBONATE TAB 650 MG TAB PO SCH ×2 (08:03→20:18)
[2019-05-30] MEDS: amLODIPine 10 MG TAB PO SCH (08:03)
[2019-05-30] MEDS: ATORVASTATIN 40 MG TAB PO SCH (08:03)
[2019-05-30] MEDS: PIOGLITAZONE 30 MG TAB PO SCH (08:03)
[2019-05-30] MEDS: hydrALAZINE HCL 50 MG TAB PO SCH ×3 (08:03→21:28)
[2019-05-30] MEDS: ATENOLOL 25 MG TAB PO SCH ×2 (08:03→20:19)
[2019-05-30] MEDS: POTASSIUM CHLORIDE ER 20 MEQ TAB.ER PO SCH (08:03)
[2019-05-30] MEDS: ISOSORBIDE MONONITRATE ER 30 MG TAB.ER.24H PO SCH (08:05)
--- NOTE | 2019-05-30 08:23 | XR ---
EXAMINATION TYPE: XR chest 1V DATE OF EXAM: 05/30/2019 COMPARISON: Prior chest x-ray May 29, 2019 HISTORY: Shortness of breath, hypoxemia TECHNIQUE: Single frontal view of the chest is obtained. FINDINGS: Heart is enlarged. There is improvement in the interstitium, aeration within the lungs. No evident pneumothorax. Blunting of the costophrenic angles again seen. There are overlying cardiac le ads. Technique somewhat apical lordotic. IMPRESSION: Improvement in patient's volume status, aeration. Persistent cardiomegaly. Probable smal l pleural effusions.
[2019-05-30] MEDS: IPRATROPIUM-ALBUTEROL 3 ML NEB INHALATION SCH ×4 (08:26→20:53)
[2019-05-30] MEDS: BUDESONIDE 0.5 MG/2 ML NEBU INHALATION SCH ×2 (08:26→20:53)
--- NOTE | 2019-05-30 10:22 | P.PN ---
Subjective Progress Note Date: 05/30/19 Principal diagnosis: Patient is being treated for hypoxic respiratory failure patient doesn't use any oxygen at home patient is presently on 2 L titrating fairly well and patient is wheezing quite a bit and patient does have COPD history as well as CHF patient was started on Pulmicort is unable to sleep because of cough put her on nighttime as needed the Robitussin with codeine. Patient is on Lasix patient is becoming hypernatremic at believe she is becoming hypovolemic has Pedal edema improved because of which I'll switch her Lasix to oral we'll repeat the labs tomorrow again . Creatinine has gone up a little bit today. Constitutional: Denied any fatigue denied any fever. Cardio vascular: denied any chest pain, palpitations Gastrointestinal denied any nausea vomiting Pulmonary: Still bit short of breath and still coughing 05/29/2019 Patient is sitting up in the bed stating that last night she was sitting up unable to sleep and had a brief few moments of feeling like she was unable to get any air and was placed on high flow oxygen and is currently on 4 L of oxygen via nasal cannula. Patient states that she does not use any oxygen at home and is concerned go home but this may happen again. Patient had a chest x-ray showing congestive heart failure and pulmonary edema and pleural fluid that appears significantly increased to prior exam. Patient was also seen by nephrology as her creatinine has worsened and is currently 3.22. Patient was receiving IV Lasix and is being placed on IV Lasix drip. The current unit that she is on does not manage Lasix drips and patient will be moved to the ICU in the [facility] overflow to be closely monitored. 05/30/2019 Patient is sitting up in bed with no acute overnight issues. Patient states that her breathing has improved denies any worsening shortness of breath. Patient is maintained on Lasix drip at 5ml/hr with oxygen saturations of 95-97% on 4 L via nasal cannula. Repeat chest x-ray this morning shows improvement in the volume status any radiation with persistent cardiomegaly and probable small pleural effusions. Creatinine slightly improved this morning and is 3.12. Review of systems: Cardiovascular: Reports of chest pain or palpitations Respiratory: No reports of worsening shortness of breath, no reports of cough GI: No reports of nausea, vomiting, or diarrhea : No reports of dysuria or retention Objective - Vital Signs Vital signs: Vital Signs Temp 98.3 F 05/30/19 08:00 Pulse 82 05/30/19 08:40 Resp 19 05/30/19 08:00 BP 126/65 05/30/19 08:00 Pulse Ox 95 05/30/19 08:26 Intake & Output 05/29/19 05/30/19 05/30/19 18:59 06:59 18:59 Intake Total 171.583 Output Total 500 800 Balance -500 -628.417 Weight 87.3 kg Intake: Intake, IV Titration 171.583 Amount Furosemide 100 mg In 81.583 Sodium Chloride 0.9% 90 ml @ 5 MG/HR 5 mls/hr IV .Q20H DORI Rx#:[id number] Sodium Chloride 0.9% 1, 90 000 ml @ 10 mls/hr IV . Q24H DORI Rx#:[id number] Output: Urine 500 800 Other: Voiding Method Toilet Toilet Toilet - Exam GENERAL: The patient is alert and oriented x3, not in any acute distress. Well developed, well nourished. HEENT: Pupils are round and equally reacting to light. EOMI. No scleral icterus. No conjunctival pallor. Normocephalic, atraumatic. No pharyngeal erythema. No thyromegaly. CARDIOVASCULAR: S1 and S2 present. No murmurs, rubs, or gallops. PULMONARY: Diminished breath sounds bilaterally with scattered crackles noted at the bases and mild expiratory wheezing noted. Slight improvement from yesterday ABDOMEN: Soft, nontender, nondistended, normoactive bowel sounds. No palpable organomegaly. MUSCULOSKELETAL: No joint swelling or deformity. EXTREMITIES: No cyanosis, clubbing, or pedal edema. NEUROLOGICAL: Gross neurological examination did not reveal any focal deficits. SKIN: No rashes. - Labs CBC & Chem 7: 05/26/19 07:36 05/30/19 04:28 Labs: Abnormal Lab Results - Last 24 Hours (Table) 05/29/19 05/29/19 05/29/19 Range/Units 12:29 17:00 21:12 Sodium (137-145) mmol/L Chloride (98-107) mmol/L BUN (7-17) mg/dL Creatinine (0.52-1.04) mg/dL Glucose (74-99) mg/dL POC Glucose (mg/dL) 204 H 305 H 206 H (75-99) mg/dL Calcium (8.4-10.2) mg/dL 05/30/19 05/30/19 Range/Units 04:28 06:12 Sodium 127 L (137-145) mmol/L Chloride 94 L (98-107) mmol/L BUN 56 H (7-17) mg/dL Creatinine 3.12 H (0.52-1.04) mg/dL Glucose 161 H (74-99) mg/dL POC Glucose (mg/dL) 185 H (75-99) mg/dL Calcium 7.9 L (8.4-10.2) mg/dL Assessment and Plan Assessment: -Acute hypoxic respiratory failure secondary to congestive heart failure chronic diastolic dysfunction with acute exacerbation. Patient is maintained on a Lasix drip at 5 ML per hour and will continue at this time. Oxygen saturations 95-97% on 4 L via nasal cannula -COPD with mild acute exacerbation -moderate carotid stenosis -Hyponatremia possibly due to diuretic therapy. Sodium is 127 -type 2 diabetes mellitus -Chronic kidney disease stage IV: Current creatinine today has likely improved and is 3.12. Nephrology following -History of bowel obstruction with surgical repair in the past -Hypertension -Hyperlipidemia
--- NOTE | 2019-05-30 10:29 | P.PN ---
Subjective Patient is seen in follow-up for acute kidney injury on chronic kidney disease. Renal function is fairly stable. Creatinine 3.12 today. Currently maintained on Lasix drip. She is maintaining a negative fluid balance. She is on 3 L nasal cannula. Dyspnea a little improved. Vital signs are stable. General: The patient appeared well nourished and normally developed. HEENT: Head exam is unremarkable. Neck is without jugular venous distension. LUNGS: Scattered wheezing. Breath sounds decreased. HEART: Rate and Rhythm are regular. First and second heart sounds normal. No murmurs, rubs or gallops. ABDOMEN: Abdominal exam reveals normal bowel sounds. Non-tender and non- distended. No evidence of peritonitis. EXTREMITITES: No clubbing, cyanosis, or edema. Objective - Vital Signs Vital signs: Vital Signs Temp 98.3 F 05/30/19 08:00 Pulse 82 05/30/19 08:40 Resp 19 05/30/19 08:00 BP 126/65 05/30/19 08:00 Pulse Ox 95 05/30/19 08:26 Intake & Output 05/29/19 05/30/19 05/30/19 18:59 06:59 18:59 Intake Total 171.583 Output Total 500 800 Balance -500 -628.417 Weight 87.3 kg Intake: Intake, IV Titration 171.583 Amount Furosemide 100 mg In 81.583 Sodium Chloride 0.9% 90 ml @ 5 MG/HR 5 mls/hr IV .Q20H DORI Rx#:[id number] Sodium Chloride 0.9% 1, 90 000 ml @ 10 mls/hr IV . Q24H DORI Rx#:[id number] Output: Urine 500 800 Other: Voiding Method Toilet Toilet Toilet - Labs CBC & Chem 7: 05/26/19 07:36 05/30/19 04:28 Labs: Abnormal Lab Results - Last 24 Hours (Table) 05/29/19 05/29/19 05/29/19 Range/Units 12:29 17:00 21:12 Sodium (137-145) mmol/L Chloride (98-107) mmol/L BUN (7-17) mg/dL Creatinine (0.52-1.04) mg/dL Glucose (74-99) mg/dL POC Glucose (mg/dL) 204 H 305 H 206 H (75-99) mg/dL Calcium (8.4-10.2) mg/dL 05/30/19 05/30/19 Range/Units 04:28 06:12 Sodium 127 L (137-145) mmol/L Chloride 94 L (98-107) mmol/L BUN 56 H (7-17) mg/dL Creatinine 3.12 H (0.52-1.04) mg/dL Glucose 161 H (74-99) mg/dL POC Glucose (mg/dL) 185 H (75-99) mg/dL Calcium 7.9 L (8.4-10.2) mg/dL Assessment and Plan Plan: Assessment: 1. Acute kidney injury mostly prerenal secondary to cardiorenal syndrome. Creatinine peaked at 3.2 to this admission. 3.12 today. 2. Chronic kidney disease stage III with baseline creatinine in the range of 1.5-1.7 in April 2016 to April 2017. However this year her renal function has been worse with creatinine near 2.5. There is concern for progression of underlying chronic kidney disease. Ultrasound from earlier this month revealed small sized kidneys without any hydronephrosis. UA from earlier this month revealed trace proteinuria, otherwise benign. 3. Acute on chronic diastolic CHF with moderate aortic stenosis. 4. Volume overload with pulmonary edema. Better. 5. Hyponatremia, currently hypervolemic. 6. Hypertension with chronic kidney disease. Controlled. 7. History of COPD. 8. Diabetes mellitus. Plan: Maintain Lasix drip at 5 mL an hour. Low-salt diet and 1500 mL fluid restriction. Avoid nephrotoxins. Strict I's and O's. Repeat electrolytes in the morning. Patient states that she does not want any form of renal replacement therapy if indicated. Discussed with the patient and her daughter present at bedside.
[2019-05-30 11:38] LABS: Glucose,Whole Blood 240 mg/dL (75-99)
--- NOTE | 2019-05-30 12:35 | P.PN ---
Subjective Progress Note Date: 05/30/19 Principal diagnosis: Acute diastolic congestive heart failure 79-year-old white female patient of Dr. Alexander Sarkar, with past medical history of hypertension, hyperlipidemia, osteoarthritis, diabetes mellitus type 2, chronic kidney disease stage III, lifetime nonsmoker, chronic congestive heart failure with diastolic dysfunction with EF between 60-65%, moderate aortic stenosis, mild MR, mild TR, moderate pulmonary hypertension with right-sided pressures of 55 mmHg. Patient was recently hospitalized in early April for shortness of breath related to acute tracheobronchitis. Patient was managed with IV steroids, nebulized bronchodilators. Patient also had worsening of her renal function during that admission related to diuretic therapy, she follows with Dr. Fontana for her history of CK-MB, she clinically improved and was discharged home. On 05/23/2019 patient presented to her PCPs office with complaints of worsening dyspnea, fatigue, exertional dyspnea and orthopnea, she denies any chest pain, denies any fever or chills, she states she has no appetite, but no nausea vomiting or diarrhea. She states she can hardly get dressed because she is so fatigued and weak. She denies any weight gain, however she has significant amount of lower extremity edema 2+ pitting edema. Chest x-ray was obtained, showing cardiomegaly, and probable subsegmental basilar atelectatic changes. No acute pulmonary process, lab work showed a white blood cell count is 6.9, hemoglobin of 10.5, sodium is 131, the rest of the electrolytes were within normal limits, BUN 62, creatinine is 2.23 glucose was 323, proBNP was 8840. Room air pulse ox is 91%, patient is afebrile, hemody namically patient is stable. D-dimer and troponins are pending, patient has some end expiratory wheezes, no significant cough or congestion. Breathing treatments have been started. On 05/24/2019 patient seen in follow-up on the general medical floor, she still states she is dyspneic with exertion, does not appear to be in any acute distress, she is on room air, no complaints of chest pain, still significant edema in bilateral lower extremities 1-2+, patient has been on oral diuretics, she has been transitioned to IV diuretics and 60 mg twice daily per cardiology. Lung sounds are clear, no rhonchi, no wheezing, no rales. Cardiology is following. Troponins were mildly elevated at 0.039, 0.036, 0.037. On 05/25/2019, the patient is feeling better compared to yesterday. She still has edema in lower extremities. Over, based on the fluid balance, the patient has lost approximately 2 kg since yesterday. She is less short of breath compared to yesterday. She is on IV Lasix milligrams IV push every 12 hours. Creatinine is up to 2.5. ProBNP level was elevated in the 8000 range. No chest pain. No angina. There is a cardiac murmur that was noted and the patient has moderate degree of pulmonary hypertension along with moderate degree of aortic stenosis. Her ejection fraction is in the order of 60-65% and she has diastolic heart failure in addition to chronic stage III kidney disease. Other comorbidities including hypertension and hyperlipidemia and diabetes mellitus ty pe 2. On 05/26/2019 and seeing the patient for a follow-up. She is resting comfortably in bed. Reportedly improvement in her shortness of breath. She is also reporting improvement in the lower extremity edema. No fever. No chills. Creatinine is stable at 2.5. She is taking Lasix 60 mg IV push every 12 hours. She had a negative fluid balance. She has diabetes another liter since yesterday. No other significant complaints. No fever. No chills. No cough. No sputum production. No symptoms of bronchitis or pneumonia at this point in time. The patient is no other complaints. On 05/27/2019 and seeing the patient for a follow-up. Gradually improving. Lower extremity edema is nearly recovered. Creatinine stable at 2.6. Still on IV Lasix. Most of the shortness of breath. I took her off the oxygen and I want to see if she is able to maintain her pulse ox above 90%. No significant sputum production. No chest pain. No pleurisy. No cardiac arrhythmias. The patient is seen today 05/28/2019 in follow-up on the regular medical floor. She is awake and alert in no acute distress. She is continuing to utilize oxygen at 2 L/m per nasal cannula with low O2 saturations on room air. She states her breathing is improved. She has a dry nonproductive cough. No fever, chills or night sweats. She does have worsening renal failure with a creatinine of 2.94. She is currently on Lasix 60 mg by mouth twice a day. The patient is seen today 05/29/2019 in follow-up on the regular medical floor. She is currently sitting up in bed. Awake and alert in no acute distress. Neph rology is at the bedside explaining the plan of care. Her chest x-ray shows increase vascular congestion. Her creatinine is elevated. The plan is for a Lasix drip at 5 mg per hour. She is currently maintaining O2 saturations in the upper 90s on 4 L/m per nasal cannula. Lungs sounds with some crackles in the posterior bases. Diminished. Sodium 128. Potassium 4.8. Creatinine 3.22. Glucose 177. She is continued on DuoNeb inhalations, Tessalon Perles. Patient was reevaluated today in the ICU on 05/30/2019. He is an overflow in the ICU. Patient responded extremely well to diuretics, however she is developing worsening renal functioning. Chest x-ray is definitely improved, there is less interstitial edema. Patient is in negative fluid balance, and she is breathing a bit easier. Seen by nephrology, felt that her renal functioning is worse mostly because of a cardiorenal syndrome. Patient is also known to have chronic kidney disease stage III her creatinine normally is in the range of 1.5-1.7. Patient also has moderate aortic stenosis contributing to her diastolic congestive heart failure. And she is hyponatremic today. With a sodium of 127, being addressed by nephrology on the case. Objective - Vital Signs Vital signs: Vital Signs Temp 98.3 F 05/30/19 08:00 Pulse 82 05/30/19 12:00 Resp 19 05/30/19 08:00 BP 126/65 05/30/19 08:00 Pulse Ox 95 05/30/19 08:26 Intake & Output 05/29/19 05/30/19 05/30/19 18:59 06:59 18:59 Intake Total 171.583 Output Total 500 800 Balance -500 -628.417 Weight 87.3 kg Intake: Intake, IV Titration 171.583 Amount Furosemide 100 mg In 81.583 Sodium Chloride 0.9% 90 ml @ 5 MG/HR 5 mls/hr IV .Q20H DORI Rx#:[id number] Sodium Chloride 0.9% 1, 90 000 ml @ 10 mls/hr IV . Q24H DORI Rx#:[id number] Output: Urine 500 800 Other: Voiding Method Toilet Toilet Toilet - Exam GENERAL EXAM: Alert, very pleasant, 79-year-old female, on 3 L nasal cannula. HEENT: PERRLA, EOMI, no icterus. Dry mucous membranes. CHEST: No chest wall deformity. Symmetrical expansion. LUNGS: Minimal fine crackles at the bases. No rhonchi and no wheezes CVS: Regular rate and rhythm, normal S1 and S2, no gallops, 2/6 systolic murmur thought the precordium. ABDOMEN: Soft, nontender. No hepatosplenomegaly, normal bowel sounds, no guarding or rigidity. EXTREMITIES: No clubbing, no cyanosis, 2+ pulses and upper and lower extrem ities. 1+ bipedal edema. MUSCULOSKELETAL: Muscle strength and tone normal. SPINE: No scoliosis or deformity SKIN: No rashes CENTRAL NERVOUS SYSTEM: No focal deficits, tone is normal in all 4 extremities. PSYCHIATRIC: Alert and oriented -3. Appropriate affect. Intact judgment and insight. - Labs CBC & Chem 7: 05/26/19 07:36 05/30/19 04:28 Labs: Abnormal Lab Results - Last 24 Hours (Table) 05/29/19 05/29/19 05/29/19 Range/Units 12:29 17:00 21:12 Sodium (137-145) mmol/L Chloride (98-107) mmol/L BUN (7-17) mg/dL Creatinine (0.52-1.04) mg/dL Glucose (74-99) mg/dL POC Glucose (mg/dL) 204 H 305 H 206 H (75-99) mg/dL Calcium (8.4-10.2) mg/dL 05/30/19 05/30/19 05/30/19 Range/Units 04:28 06:12 11:37 Sodium 127 L (137-145) mmol/L Chloride 94 L (98-107) mmol/L BUN 56 H (7-17) mg/dL Creatinine 3.12 H (0.52-1.04) mg/dL Glucose 161 H (74-99) mg/dL POC Glucose (mg/dL) 185 H 240 H (75-99) mg/dL Calcium 7.9 L (8.4-10.2) mg/dL Assessment and Plan Assessment: Impression: Acute on chronic diastolic congestive heart failure Acute on chronic kidney injury Moderate aortic stenosis Mild intermittent asthma Moderate to severe pulmonary hypertension secondary to valvular heart disease Type 2 diabetes, poorly controlled Lifetime nonsmoker. Benign essential hypertension Chronic cor pulmonale Hyponatremia secondary to diuretics. History of bowel obstruction requiring surgical repair. Recommendation: Continue diuretics as per nephrology and cardiology. Continue bronchodilators. Continue to monitor electrolytes and renal profile on a daily basis. Dose of Lasix to be addressed by nephrology since the patient is developing worsening prerenal picture. Patient will remain as an overflow in the ICU, however should be transferred once a bed becomes available on the cardiac floor. We'll continue to follow. Time with Patient: Less than 30
--- NOTE | 2019-05-30 13:10 | PN ---
PROGRESS NOTE A 79-year-old lady who is admitted to hospital with congestive heart failure exacerbation, has acute worsening of the chronic renal insufficiency, currently on Lasix drip and is in the ICU for the same. She has had a negative fluid balance of about 1 L. She is on 5 mg an hour Lasix drip. Renal functions have not improved all that much since yesterday. She has shortness of breath with activity, but also has severe COPD. The patient has underlying aortic stenosis. Ejection fraction is around 45% to 50%. PHYSICAL EXAMINATION: On exam, she is comfortable at rest. Vital signs are stable. Chest exam reveals diminished air entry with wheezing. Heart exam reveals first and second heart sounds and ejection systolic murmur in the aortic area. Abdomen is soft. Exam of extremities did not reveal any edema. Peripheral pulses are palpable. LABS: Labs show that the BUN is 56, creatinine is 3.1, potassium is 4.9. Hemoglobin is 8.1, platelet count is 180. ASSESSMENT: 1. Acute exacerbation of chronic diastolic heart failure. 2. Chronic renal insufficiency. 3. Moderate aortic stenosis. PLAN: I will continue the patient on Lasix drip. Continue the nebulizers, hydralazine, Norvasc, Tenormin, and Lipitor. MMODL / IJN: [id number] /
[2019-05-30 17:09] LABS: Glucose,Whole Blood 253 mg/dL (75-99)
[2019-05-30] MEDS: SODIUM CHLORIDE 0.9% 1,000 ML IV SCH (19:08)
[2019-05-30 20:11] LABS: Glucose,Whole Blood 243 mg/dL (75-99)
[2019-05-31 05:30] LABS: Basophils % (A) 0 %; Eosinophils # (A) 0.3 k/uL (0-0.7); Eosinophils % (A) 11 %; HCT 22.9 % (34.0-46.0); HGB 7.4 gm/dL (11.4-16.0); Lymphocytes # (A) 0.5 k/uL (1.0-4.8); Lymphocytes % (A) 22 %; MCH 28.5 pg (25.0-35.0); MCHC 32.3 g/dL (31.0-37.0); MCV 88.2 fL (80.0-100.0); Mean Platelet Volume 8.3; Monocytes # (A) 0.2 k/uL (0-1.0); Monocytes % (A) 8 %; Neutrophils # (A) 1.4 k/uL (1.3-7.7); Neutrophils % (A) 57 %; Platelet Count 239 k/uL (150-450); RBC 2.59 m/uL (3.80-5.40); RDW 14.6 % (11.5-15.5); WBC 2.5 k/uL (3.8-10.6)
[2019-05-31 05:35] LABS: Calcium 8.1 mg/dL (8.4-10.2); Potassium 4.4 mmol/L (3.5-5.1)
[2019-05-31] MEDS: BUDESONIDE 0.5 MG/2 ML NEBU INHALATION SCH ×2 (06:55→20:17)
[2019-05-31] MEDS: IPRATROPIUM-ALBUTEROL 3 ML NEB INHALATION SCH ×4 (06:55→20:18)
[2019-05-31 06:58] LABS: Glucose,Whole Blood 178 mg/dL (75-99)
[2019-05-31] MEDS: INSULIN ASPART (NovoLOG) 100 UNIT/ML VIAL SQ SCH ×4 (07:00→20:44)
--- NOTE | 2019-05-31 08:27 | XR ---
EXAMINATION TYPE: XR chest 1V portable DATE OF EXAM: 05/31/2019 COMPARISON: Prior chest x-ray 05/30/2019 HISTORY: Shortness of breath TECHNIQUE: Single frontal view of the chest is obtained. FINDINGS: The heart is enlarged. There are overlying cardiac leads. Central vascularity and interst itium are increased. There is no evident pneumothorax. Bibasilar increased density is noted, left hem idiaphragm is obscured. There is blunting of the costophrenic angles. Aorta is dense, patient is rota arline. IMPRESSION: Correlate for congestive heart failure, possible pulmonary artery hypertension. There ma y be basilar effusions and associated edema versus atelectasis, pneumonia not excluded.
--- NOTE | 2019-05-31 09:07 | P.PN ---
Subjective Patient is seen in follow-up for acute kidney injury on chronic kidney disease. Renal function is fairly stable. Creatinine 3.11 today. Currently maintained on Lasix drip. She is maintaining a negative fluid balance but remains edematous. She is on 3 L nasal cannula. Dyspnea stable. Vital signs are stable. General: The patient appeared well nourished and normally developed. HEENT: Head exam is unremarkable. Neck is without jugular venous distension. LUNGS: Scattered wheezing. Breath sounds decreased. HEART: Rate and Rhythm are regular. First and second heart sounds normal. No murmurs, rubs or gallops. ABDOMEN: Abdominal exam reveals normal bowel sounds. Non-tender and non- distended. No evidence of peritonitis. EXTREMITITES: 1+ edema. Objective - Vital Signs Vital signs: Vital Signs Temp 98.9 F 05/31/19 04:00 Pulse 77 05/31/19 07:10 Resp 20 05/31/19 04:00 BP 131/74 05/31/19 04:00 Pulse Ox 93 L 05/31/19 04:35 Intake & Output 05/30/19 05/31/19 05/31/19 18:59 06:59 18:59 Intake Total 120 335.167 Output Total 575 320 Balance -455 15.167 Weight 86.9 kg 86.9 kg Intake: IV 120 250 Furosemide 100 mg In 40 100 Sodium Chloride 0.9% 90 ml @ 5 MG/HR 5 mls/hr IV .Q20H [facility] Rx#:[id number] Sodium Chloride 0.9% 1, 80 150 000 ml @ 10 mls/hr IV . Q24H [facility] Rx#:[id number] Intake, IV Titration 85.167 Amount Furosemide 100 mg In 85.167 Sodium Chloride 0.9% 90 ml @ 5 MG/HR 5 mls/hr IV .Q20H [facility]I Rx#:[id number] Output: Urine 575 320 Other: Voiding Method Toilet Toilet # Voids 1 # Bowel Movements 1 - Labs CBC & Chem 7: 05/31/19 05:10 05/31/19 05:10 Labs: Abnormal Lab Results - Last 24 Hours (Table) 05/30/19 05/30/19 05/30/19 Range/Units 11:37 17:07 20:09 WBC (3.8-10.6) k/uL RBC (3.80-5.40) m/uL Hgb (11.4-16.0) gm/dL Hct (34.0-46.0) % Lymphocytes # (1.0-4.8) k/uL Sodium (137-145) mmol/L Chloride (98-107) mmol/L BUN (7-17) mg/dL Creatinine (0.52-1.04) mg/dL Glucose (74-99) mg/dL POC Glucose (mg/dL) 240 H 253 H 243 H (75-99) mg/dL Calcium (8.4-10.2) mg/dL 05/31/19 05/31/19 05/31/19 Range/Units 05:10 05:10 06:57 WBC 2.5 L (3.8-10.6) k/uL RBC 2.59 L (3.80-5.40) m/uL Hgb 7.4 L (11.4-16.0) gm/dL Hct 22.9 L (34.0-46.0) % Lymphocytes # 0.5 L (1.0-4.8) k/uL Sodium 130 L (137-145) mmol/L Chloride 96 L (98-107) mmol/L BUN 59 H (7-17) mg/dL Creatinine 3.11 H (0.52-1.04) mg/dL Glucose 160 H (74-99) mg/dL POC Glucose (mg/dL) 178 H (75-99) mg/dL Calcium 8.1 L (8.4-10.2) mg/dL Assessment and Plan Plan: Assessment: 1. Acute kidney injury mostly prerenal secondary to cardiorenal syndrome. Creatinine peaked at 3.22 this admission. Stable at 3.11 today. 2. Chronic kidney disease stage III with baseline creatinine in the range of 1.5-1.7 in April 2016 to April 2017. However this year her renal function has been worse with creatinine near 2.5. There is concern for progression of underlying chronic kidney disease. Ultrasound from earlier this month revealed small sized kidneys without any hydronephrosis. UA from earlier this month revealed trace proteinuria, otherwise benign. 3. Acute on chronic diastolic CHF with moderate aortic stenosis. 4. Volume overload with pulmonary edema. Better. 5. Hyponatremia, currently hypervolemic. 6. Hypertension with chronic kidney disease. Controlled. 7. History of COPD. 8. Diabetes mellitus. 9. Anemia of chronic kidney disease. Rule out iron deficiency. Plan: Increase Lasix drip to 10 mL an hour. Low-salt diet and 1500 mL fluid restriction. Discontinue sodium bicarbonate. Check iron studies. Avoid nephrotoxins. Strict I's and O's. Repeat electrolytes in the morning. Patient states that she does not want any form of renal replacement therapy if indicated.
[2019-05-31] MEDS: ATENOLOL 25 MG TAB PO SCH ×2 (09:41→20:44)
[2019-05-31] MEDS: PANTOPRAZOLE 40 MG TABLET PO SCH (09:41)
[2019-05-31] MEDS: ISOSORBIDE MONONITRATE ER 30 MG TAB.ER.24H PO SCH (09:42)
[2019-05-31] MEDS: ATORVASTATIN 40 MG TAB PO SCH (09:42)
[2019-05-31] MEDS: POTASSIUM CHLORIDE ER 20 MEQ TAB.ER PO SCH (09:43)
[2019-05-31] MEDS: hydrALAZINE HCL 50 MG TAB PO SCH ×3 (09:43→21:02)
[2019-05-31] MEDS: PIOGLITAZONE 30 MG TAB PO SCH (09:43)
[2019-05-31] MEDS: amLODIPine 10 MG TAB PO SCH (09:44)
--- NOTE | 2019-05-31 10:22 | PN ---
PROGRESS NOTE Page is a 79-year-old lady who was admitted to hospital with complex and multiple medical problems including congestive heart failure, renal insufficiency and COPD exacerbation. She is currently on 10 mg an hour Lasix drip with improving urine output, but continues to be short of breath. PHYSICAL EXAMINATION: On exam, she is comfortable at rest and does not seem to be in respiratory distress. O2 saturation is 93% on 3 L. Heart rate is 70 beats per minute. Blood pressure is 130/70. Respiratory rate is 22. Chest exam reveals diminished air entry with occasional rhonchi with bilateral diffuse rhonchi, but this is improved compared to yesterday. Examination of the extremities did not reveal any edema. Abdomen is soft. LABS: Labs show a hemoglobin of 7.4, platelet count is 239, potassium is 4.4, BUN is 59, creatinine is 3.1. ASSESSMENT: 1. Acute exacerbation of chronic congestive heart failure. 2. Chronic obstructive pulmonary disease exacerbation. 3. Chronic renal failure. PLAN: Patient will continue with Lasix drip nebulizers and have optimal control of her blood pressure with Apresoline and Norvasc. MMODL / IJN: [id number] /
--- NOTE | 2019-05-31 11:52 | P.PN ---
Subjective Progress Note Date: 05/31/19 Principal diagnosis: Acute diastolic congestive heart failure 79-year-old white female patient of Dr. Alexander Sarkar, with past medical history of hypertension, hyperlipidemia, osteoarthritis, diabetes mellitus type 2, chronic kidney disease stage III, lifetime nonsmoker, chronic congestive heart failure with diastolic dysfunction with EF between 60-65%, moderate aortic stenosis, mild MR, mild TR, moderate pulmonary hypertension with right-sided pressures of 55 mmHg. Patient was recently hospitalized in early April for shortness of breath related to acute tracheobronchitis. Patient was managed with IV steroids, nebulized bronchodilators. Patient also had worsening of her renal function during that admission related to diuretic therapy, she follows with Dr. Fonatna for her history of CK-MB, she clinically improved and was discharged home. On 05/23/2019 patient presented to her PCPs office with complaints of worsening dyspnea, fatigue, exertional dyspnea and orthopnea, she denies any chest pain, denies any fever or chills, she states she has no appetite, but no nausea vomiting or diarrhea. She states she can hardly get dressed because she is so fatigued and weak. She denies any weight gain, however she has significant amount of lower extremity edema 2+ pitting edema. Chest x-ray was obtained, showing cardiomegaly, and probable subsegmental basilar atelectatic changes. No acute pulmonary process, lab work showed a white blood cell count is 6.9, hemoglobin of 10.5, sodium is 131, the rest of the electrolytes were within normal limits, BUN 62, creatinine is 2.23 glucose was 323, proBNP was 8840. Room air pulse ox is 91%, patient is afebrile, hemody namically patient is stable. D-dimer and troponins are pending, patient has some end expiratory wheezes, no significant cough or congestion. Breathing treatments have been started. On 05/24/2019 patient seen in follow-up on the general medical floor, she still states she is dyspneic with exertion, does not appear to be in any acute distress, she is on room air, no complaints of chest pain, still significant edema in bilateral lower extremities 1-2+, patient has been on oral diuretics, she has been transitioned to IV diuretics and 60 mg twice daily per cardiology. Lung sounds are clear, no rhonchi, no wheezing, no rales. Cardiology is following. Troponins were mildly elevated at 0.039, 0.036, 0.037. On 05/25/2019, the patient is feeling better compared to yesterday. She still has edema in lower extremities. Over, based on the fluid balance, the patient has lost approximately 2 kg since yesterday. She is less short of breath compared to yesterday. She is on IV Lasix milligrams IV push every 12 hours. Creatinine is up to 2.5. ProBNP level was elevated in the 8000 range. No chest pain. No angina. There is a cardiac murmur that was noted and the patient has moderate degree of pulmonary hypertension along with moderate degree of aortic stenosis. Her ejection fraction is in the order of 60-65% and she has diastolic heart failure in addition to chronic stage III kidney disease. Other comorbidities including hypertension and hyperlipidemia and diabetes mellitus ty pe 2. On 05/26/2019 and seeing the patient for a follow-up. She is resting comfortably in bed. Reportedly improvement in her shortness of breath. She is also reporting improvement in the lower extremity edema. No fever. No chills. Creatinine is stable at 2.5. She is taking Lasix 60 mg IV push every 12 hours. She had a negative fluid balance. She has diabetes another liter since yesterday. No other significant complaints. No fever. No chills. No cough. No sputum production. No symptoms of bronchitis or pneumonia at this point in time. The patient is no other complaints. On 05/27/2019 and seeing the patient for a follow-up. Gradually improving. Lower extremity edema is nearly recovered. Creatinine stable at 2.6. Still on IV Lasix. Most of the shortness of breath. I took her off the oxygen and I want to see if she is able to maintain her pulse ox above 90%. No significant sputum production. No chest pain. No pleurisy. No cardiac arrhythmias. The patient is seen today 05/28/2019 in follow-up on the regular medical floor. She is awake and alert in no acute distress. She is continuing to utilize oxygen at 2 L/m per nasal cannula with low O2 saturations on room air. She states her breathing is improved. She has a dry nonproductive cough. No fever, chills or night sweats. She does have worsening renal failure with a creatinine of 2.94. She is currently on Lasix 60 mg by mouth twice a day. The patient is seen today 05/29/2019 in follow-up on the regular medical floor. She is currently sitting up in bed. Awake and alert in no acute distress. Neph rology is at the bedside explaining the plan of care. Her chest x-ray shows increase vascular congestion. Her creatinine is elevated. The plan is for a Lasix drip at 5 mg per hour. She is currently maintaining O2 saturations in the upper 90s on 4 L/m per nasal cannula. Lungs sounds with some crackles in the posterior bases. Diminished. Sodium 128. Potassium 4.8. Creatinine 3.22. Glucose 177. She is continued on DuoNeb inhalations, Tessalon Perles. Patient was reevaluated today in the ICU on 05/30/2019. He is an overflow in the ICU. Patient responded extremely well to diuretics, however she is developing worsening renal functioning. Chest x-ray is definitely improved, there is less interstitial edema. Patient is in negative fluid balance, and she is breathing a bit easier. Seen by nephrology, felt that her renal functioning is worse mostly because of a cardiorenal syndrome. Patient is also known to have chronic kidney disease stage III her creatinine normally is in the range of 1.5-1.7. Patient also has moderate aortic stenosis contributing to her diastolic congestive heart failure. And she is hyponatremic today. With a sodium of 127, being addressed by nephrology on the case. Reevaluated today on 05/31/2019, patient remains in the ICU, she is an overflow. Continues on Lasix drip at 10 mg per hour. Good urine output, chest x-ray continues to show some improvement. Renal functioning is stable, creatinine is 3.11 today. Patient is maintaining a negative fluid balance. She is on 3 L nasal cannula. In no distress, she does have occasional cough. Objective - Vital Signs Vital signs: Vital Signs Temp 98.0 F 05/31/19 08:00 Pulse 71 05/31/19 11:15 Resp 21 05/31/19 10:00 BP 120/68 05/31/19 10:00 Pulse Ox 94 L 05/31/19 10:00 Intake & Output 05/30/19 05/31/19 05/31/19 18:59 06:59 18:59 Intake Total 120 335.167 Output Total 575 320 Balance -455 15.167 Weight 86.9 kg 86.9 kg Intake: IV 120 250 Furosemide 100 mg In 40 100 Sodium Chloride 0.9% 90 ml @ 5 MG/HR 5 mls/hr IV .Q20H [facility] Rx#:[id number] Sodium Chloride 0.9% 1, 80 150 000 ml @ 10 mls/hr IV . Q24H [facility] Rx#:[id number] Intake, IV Titration 85.167 Amount Furosemide 100 mg In 85.167 Sodium Chloride 0.9% 90 ml @ 5 MG/HR 5 mls/hr IV .Q20H [facility] Rx#:[id number] Output: Urine 575 320 Other: Voiding Method Toilet Toilet Toilet # Voids 1 # Bowel Movements 1 - Exam GENERAL EXAM: Alert, very pleasant, 79-year-old female, on 3 L nasal cannula. In no form of distress. HEENT: PERRLA, EOMI, no icterus. Dry mucous membranes. CHEST: No chest wall deformity. Symmetrical expansion. LUNGS: Minimal fine crackles at the bases. No rhonchi and no wheezes CVS: Regular rate and rhythm, normal S1 and S2, no gallops, 2/6 systolic murmur thought the precordium. ABDOMEN: Soft, nontender. No hepatosplenomegaly, normal bowel sounds, no guarding or rigidity. EXTREMITIES: No clubbing, no cyanosis, 2+ pulses and upper and lower ext remities. 1+ bipedal edema. MUSCULOSKELETAL: Muscle strength and tone normal. SPINE: No scoliosis or deformity SKIN: No rashes CENTRAL NERVOUS SYSTEM: No focal deficits, tone is normal in all 4 extremities. PSYCHIATRIC: Alert and oriented -3. Appropriate affect. Intact judgment and insight. - Labs CBC & Chem 7: 05/31/19 05:10 05/31/19 05:10 Labs: Abnormal Lab Results - Last 24 Hours (Table) 05/30/19 05/30/19 05/31/19 Range/Units 17:07 20:09 05:10 WBC 2.5 L (3.8-10.6) k/uL RBC 2.59 L (3.80-5.40) m/uL Hgb 7.4 L (11.4-16.0) gm/dL Hct 22.9 L (34.0-46.0) % Lymphocytes # 0.5 L (1.0-4.8) k/uL Sodium (137-145) mmol/L Chloride (98-107) mmol/L BUN (7-17) mg/dL Creatinine (0.52-1.04) mg/dL Glucose (74-99) mg/dL POC Glucose (mg/dL) 253 H 243 H (75-99) mg/dL Calcium (8.4-10.2) mg/dL 05/31/19 05/31/19 Range/Units 05:10 06:57 WBC (3.8-10.6) k/uL RBC (3.80-5.40) m/uL Hgb (11.4-16.0) gm/dL Hct (34.0-46.0) % Lymphocytes # (1.0-4.8) k/uL Sodium 130 L (137-145) mmol/L Chloride 96 L (98-107) mmol/L BUN 59 H (7-17) mg/dL Creatinine 3.11 H (0.52-1.04) mg/dL Glucose 160 H (74-99) mg/dL POC Glucose (mg/dL) 178 H (75-99) mg/dL Calcium 8.1 L (8.4-10.2) mg/dL Assessment and Plan Assessment: Impression: Acute on chronic diastolic congestive heart failure Acute on chronic kidney injury Moderate aortic stenosis Mild intermittent asthma, presently stable. Moderate to severe pulmonary hypertension secondary to valvular heart disease Type 2 diabetes, poorly controlled Lifetime nonsmoker. Benign essential hypertension Chronic cor pulmonale Hyponatremia secondary to diuretics. Improved, sodium is 130 today History of bowel obstruction requiring surgical repair. Recommendation: Continue diuretics as per nephrology and cardiology. Continue bronchodilators. Continue to monitor electrolytes and renal profile on a daily basis. Continue Lasix at 10 mg per hour. Continue to monitor her pulmonary status clinically and by chest x-ray. We'll continue to follow. Time with Patient: Less than 30
[2019-05-31 11:57] LABS: Glucose,Whole Blood 206 mg/dL (75-99)
[2019-05-31] MEDS: FUROSEMIDE 100 MG in SODIUM CHLORIDE 0.9% 90 ML IV SCH (12:11)
[2019-05-31] MEDS: SODIUM CHLORIDE 0.9% 1,000 ML IV SCH (13:46)
--- NOTE | 2019-05-31 16:03 | P.PN ---
Subjective Progress Note Date: 05/31/19 Principal diagnosis: Patient is being treated for hypoxic respiratory failure patient doesn't use any oxygen at home patient is presently on 2 L titrating fairly well and patient is wheezing quite a bit and patient does have COPD history as well as CHF patient was started on Pulmicort is unable to sleep because of cough put her on nighttime as needed the Robitussin with codeine. Patient is on Lasix patient is becoming hypernatremic at believe she is becoming hypovolemic has Pedal edema improved because of which I'll switch her Lasix to oral we'll repeat the labs tomorrow again . Creatinine has gone up a little bit today. Constitutional: Denied any fatigue denied any fever. Cardio vascular: denied any chest pain, palpitations Gastrointestinal denied any nausea vomiting Pulmonary: Still bit short of breath and still coughing 05/29/2019 Patient is sitting up in the bed stating that last night she was sitting up unable to sleep and had a brief few moments of feeling like she was unable to get any air and was placed on high flow oxygen and is currently on 4 L of oxygen via nasal cannula. Patient states that she does not use any oxygen at home and is concerned go home but this may happen again. Patient had a chest x-ray showing congestive heart failure and pulmonary edema and pleural fluid that appears significantly increased to prior exam. Patient was also seen by nephrology as her creatinine has worsened and is currently 3.22. Patient was receiving IV Lasix and is being placed on IV Lasix drip. The current unit that she is on does not manage Lasix drips and patient will be moved to the ICU in the [facility] overflow to be closely monitored. 05/30/2019 Patient is sitting up in bed with no acute overnight issues. Patient states that her breathing has improved denies any worsening shortness of breath. Patient is maintained on Lasix drip at 5ml/hr with oxygen saturations of 95-97% on 4 L via nasal cannula. Repeat chest x-ray this morning shows improvement in the volume status any radiation with persistent cardiomegaly and probable small pleural effusions. Creatinine slightly improved this morning and is 3.12. Review of systems: Cardiovascular: Reports of chest pain or palpitations Respiratory: No reports of worsening shortness of breath, no reports of cough GI: No reports of nausea, vomiting, or diarrhea : No reports of dysuria or retention 05/31/2019 Patient remains in the ICU as an overflow awaiting a bed on selective and is being closely monitored. Patient is currently maintained on a Lasix drip at 10 mg per hour as she continues to have shortness of breath with exertion and becomes severely hypoxic without oxygen. Creatinine slightly improved and is 3.11 today. Vision is currently on 3 L of oxygen via nasal cannula with saturations in the low 90s. Repeat chest x-ray today shows congestive heart failure, possibly pulmonary artery hypertension, basilar effusions and associated edema versus atelectasis. Objective - Vital Signs Vital signs: Vital Signs Temp 97.5 F L 05/31/19 12:00 Pulse 79 05/31/19 15:40 Resp 19 05/31/19 12:00 BP 116/59 05/31/19 12:00 Pulse Ox 93 L 05/31/19 12:00 Intake & Output 05/30/19 05/31/19 05/31/19 18:59 06:59 18:59 Intake Total 120 335.167 939.417 Output Total 768 215 7346 Balance -455 15.167 -60.583 Weight 86.9 kg 86.9 kg Intake: IV 120 250 Furosemide 100 mg In 40 100 Sodium Chloride 0.9% 90 ml @ 10 MG/HR 10 mls/hr IV .Q10H [facility] Rx#: [id number] Sodium Chloride 0.9% 1, 80 150 000 ml @ 10 mls/hr IV . Q24H [facility] Rx#:[id number] Intake, IV Titration 85.167 79.417 Amount Furosemide 100 mg In 85.167 79.417 Sodium Chloride 0.9% 90 ml @ 10 MG/HR 10 mls/hr IV .Q10H [facility]I Rx#: [id number] Blood Product 860 Output: Urine 358 294 8222 Other: Voiding Method Toilet Toilet Toilet # Voids 1 # Bowel Movements 1 1 - Exam GENERAL: The patient is alert and oriented x3, not in any acute distress. Well developed, well nourished. HEENT: Pupils are round and equally reacting to light. EOMI. No scleral icterus. No conjunctival pallor. Normocephalic, atraumatic. No pharyngeal erythema. No thyromegaly. CARDIOVASCULAR: S1 and S2 present. No murmurs, rubs, or gallops. PULMONARY: Diminished breath sounds bilaterally with scattered crackles noted at the bases and mild expiratory wheezing noted. Slight improvement from yesterday of wheezing ABDOMEN: Soft, nontender, nondistended, normoactive bowel sounds. No palpable organomegaly. MUSCULOSKELETAL: No joint swelling or deformity. EXTREMITIES: No cyanosis, clubbing, or pedal edema. Mild lower extremity edema bilaterally. Compression hose noted NEUROLOGICAL: Gross neurological examination did not reveal any focal deficits. SKIN: No rashes. - Labs CBC & Chem 7: 05/31/19 05:10 05/31/19 05:10 Labs: Abnormal Lab Results - Last 24 Hours (Table) 05/30/19 05/30/19 05/31/19 Range/Units 17:07 20:09 05:10 WBC 2.5 L (3.8-10.6) k/uL RBC 2.59 L (3.80-5.40) m/uL Hgb 7.4 L (11.4-16.0) gm/dL Hct 22.9 L (34.0-46.0) % Lymphocytes # 0.5 L (1.0-4.8) k/uL Sodium (137-145) mmol/L Chloride (98-107) mmol/L BUN (7-17) mg/dL Creatinine (0.52-1.04) mg/dL Glucose (74-99) mg/dL POC Glucose (mg/dL) 253 H 243 H (75-99) mg/dL Calcium (8.4-10.2) mg/dL 05/31/19 05/31/19 05/31/19 Range/Units 05:10 06:57 11:56 WBC (3.8-10.6) k/uL RBC (3.80-5.40) m/uL Hgb (11.4-16.0) gm/dL Hct (34.0-46.0) % Lymphocytes # (1.0-4.8) k/uL Sodium 130 L (137-145) mmol/L Chloride 96 L (98-107) mmol/L BUN 59 H (7-17) mg/dL Creatinine 3.11 H (0.52-1.04) mg/dL Glucose 160 H (74-99) mg/dL POC Glucose (mg/dL) 178 H 206 H (75-99) mg/dL Calcium 8.1 L (8.4-10.2) mg/dL Assessment and Plan Assessment: -Acute hypoxic respiratory failure secondary to congestive heart failure chronic diastolic dysfunction with acute exacerbation. Patient is maintained on a Lasix drip at 10 ML per hour and will continue at this time. Oxygen saturations 92- 94% on 3 L via nasal cannula -COPD with mild acute exacerbation -moderate carotid stenosis -Hyponatremia possibly due to diuretic therapy. Sodium is 130 -type 2 diabetes mellitus -Chronic kidney disease stage IV: Current creatinine today has slightly improved and is 3.11. Nephrology following -History of bowel obstruction with surgical repair in the past -Hypertension -Hyperlipidemia
[2019-05-31 16:25] LABS: Ferritin 158.2 ng/mL (10.0-291.0)
[2019-05-31 16:43] LABS: % Iron Saturation 7.25 (12.00-45.00)
[2019-05-31 16:56] LABS: Glucose,Whole Blood 243 mg/dL (75-99)
[2019-05-31 20:33] LABS: Glucose,Whole Blood 231 mg/dL (75-99)
[2019-06-01 06:09] LABS: Calcium 8.1 mg/dL (8.4-10.2); Potassium 4.3 mmol/L (3.5-5.1)
[2019-06-01] MEDS: PANTOPRAZOLE 40 MG TABLET PO SCH (06:41)
[2019-06-01] MEDS: INSULIN ASPART (NovoLOG) 100 UNIT/ML VIAL SQ SCH ×4 (07:17→20:41)
[2019-06-01] MEDS: IPRATROPIUM-ALBUTEROL 3 ML NEB INHALATION SCH ×4 (08:13→19:00)
[2019-06-01] MEDS: BUDESONIDE 0.5 MG/2 ML NEBU INHALATION SCH ×2 (08:13→19:00)
[2019-06-01] MEDS: FUROSEMIDE 100 MG in SODIUM CHLORIDE 0.9% 90 ML IV SCH ×2 (09:00→18:34)
[2019-06-01] MEDS: ATORVASTATIN 40 MG TAB PO SCH (09:01)
[2019-06-01] MEDS: ATENOLOL 25 MG TAB PO SCH ×2 (09:01→20:41)
[2019-06-01] MEDS: ISOSORBIDE MONONITRATE ER 30 MG TAB.ER.24H PO SCH (09:01)
[2019-06-01] MEDS: amLODIPine 10 MG TAB PO SCH (09:02)
[2019-06-01] MEDS: POTASSIUM CHLORIDE ER 20 MEQ TAB.ER PO SCH (09:02)
[2019-06-01] MEDS: hydrALAZINE HCL 50 MG TAB PO SCH ×3 (09:02→20:41)
[2019-06-01] MEDS: PIOGLITAZONE 30 MG TAB PO SCH (09:02)
[2019-06-01] MEDS: SODIUM CHLORIDE 0.9% 1,000 ML IV SCH (09:04)
--- NOTE | 2019-06-01 09:04 | P.PN ---
Subjective Patient is seen in follow-up for acute kidney injury on chronic kidney disease. Renal function is fairly stable. Creatinine 3.04 today. Currently maintained on Lasix drip. Edema is better. She is on 3 L nasal cannula. Dyspnea stable. Vital signs are stable. General: The patient appeared well nourished and normally developed. HEENT: Head exam is unremarkable. Neck is without jugular venous distension. LUNGS: Scattered wheezing. Breath sounds decreased. HEART: Rate and Rhythm are regular. First and second heart sounds normal. No murmurs, rubs or gallops. ABDOMEN: Abdominal exam reveals normal bowel sounds. Non-tender and non-distend ed. No evidence of peritonitis. EXTREMITITES: Trace edema. Objective - Vital Signs Vital signs: Vital Signs Temp 98.3 F 05/31/19 16:00 Pulse 76 06/01/19 08:25 Resp 21 06/01/19 04:00 BP 130/72 06/01/19 04:00 Pulse Ox 93 L 06/01/19 04:00 Intake & Output 05/31/19 06/01/19 06/01/19 18:59 06:59 18:59 Intake Total 939.417 650 Output Total 1000 800 Balance -60.583 -150 Weight 87.2 kg Intake: IV 170 Furosemide 100 mg In 50 Sodium Chloride 0.9% 90 ml @ 10 MG/HR 10 mls/hr IV .Q10H [facility] Rx#: [id number] Sodium Chloride 0.9% 1, 120 000 ml @ 10 mls/hr IV . Q24H [facility] Rx#:[id number] Intake, IV Titration 79.417 Amount Furosemide 100 mg In 79.417 Sodium Chloride 0.9% 90 ml @ 10 MG/HR 10 mls/hr IV .Q10H [facility] Rx#: [id number] Oral 240 Blood Product 860 240 Output: Urine 1000 800 Other: Voiding Method Toilet Toilet # Bowel Movements 1 1 - Labs CBC & Chem 7: 05/31/19 05:10 06/01/19 05:32 Labs: Abnormal Lab Results - Last 24 Hours (Table) 05/31/19 05/31/19 05/31/19 Range/Units 05:10 11:56 16:54 Sodium (137-145) mmol/L Chloride (98-107) mmol/L BUN (7-17) mg/dL Creatinine (0.52-1.04) mg/dL Glucose (74-99) mg/dL POC Glucose (mg/dL) 206 H 243 H (75-99) mg/dL Calcium (8.4-10.2) mg/dL Iron 19 L (50-170) ug/dL % Saturation 7.25 L (12.00-45.00) 05/31/19 06/01/19 Range/Units 20:32 05:32 Sodium 130 L (137-145) mmol/L Chloride 96 L (98-107) mmol/L BUN 59 H (7-17) mg/dL Creatinine 3.04 H (0.52-1.04) mg/dL Glucose 127 H (74-99) mg/dL POC Glucose (mg/dL) 231 H (75-99) mg/dL Calcium 8.1 L (8.4-10.2) mg/dL Iron (50-170) ug/dL % Saturation (12.00-45.00) Assessment and Plan Plan: Assessment: 1. Acute kidney injury mostly prerenal secondary to cardiorenal syndrome. Creatinine peaked at 3.22 this admission. Stable at 3.04 today. 2. Chronic kidney disease stage III with baseline creatinine in the range of 1.5-1.7 in April 2016 to April 2017. However this year her renal function has been worse with creatinine near 2.5. There is concern for progression of underlying chronic kidney disease. Ultrasound from earlier this month revealed small sized kidneys without any hydronephrosis. UA from earlier this month revealed trace proteinuria, otherwise benign. 3. Acute on chronic diastolic CHF with moderate aortic stenosis. 4. Volume overload with pulmonary edema. Better. 5. Hyponatremia, currently hypervolemic. 6. Hypertension with chronic kidney disease. Controlled. 7. History of COPD. 8. Diabetes mellitus. 9. Anemia of chronic kidney disease. Iron deficiency noted. Plan: Maintain Lasix drip at 10 mL an hour. Add metolazone 5 mg once daily. Check chest x-ray tomorrow. Low-salt diet and 1500 mL fluid restriction. IV iron 3 doses. First dose today. Avoid nephrotoxins. Strict I's and O's. Repeat electrolytes in the morning. Patient states that she does not want any form of renal replacement therapy if indicated.
[2019-06-01] MEDS: METOLAZONE 5 MG TAB PO SCH (09:35)
--- NOTE | 2019-06-01 09:42 | PN ---
PROGRESS NOTE Page is a 79-year-old lady who is admitted to hospital with congestive heart failure and COPD exacerbation. She is feeling better this morning. Shortness of breath has improved, but she is still short of breath with activity. Her O2 saturation is 91% on 3 L. Heart rate is 78 beats per minute. Blood pressure is 105/60, respiratory rate is 18. Chest exam reveals bilateral rhonchi. Heart exam reveals first and second heart sounds. No gallop. Abdomen is soft. Exam of extremities reveals bilateral 1+ pitting edema. LABS: Show a potassium of 4.3, creatinine is 3, BUN is 53, hemoglobin is 7.4, platelet count is 239. The patient's recent echocardiogram showed normal LV systolic function with severe concentric left ventricular hypertrophy and aortic stenosis. PHYSICAL EXAM: Vital signs are stable. Chest exam reveals diffuse bilateral rhonchi. Heart exam reveals first and second heart sounds and ejection systolic murmur in the aortic area. Examination of extremities reveals 1+ edema. ASSESSMENT: 1. Acute exacerbation of chronic diastolic heart failure. 2. Chronic obstructive pulmonary disease exacerbation. 3. Chronic renal failure. PLAN: Will continue with the Lasix drip. Continue the nebulizers. Consider adding steroids and continue the nebulizers. MMODL / IJN: [id number] /
[2019-06-01] MEDS: SODIUM FERRIC GLUCONAT-SUCROSE 125 MG in SODIUM CHLORIDE 0.9% 100 ML IVPB SCH (09:45)
[2019-06-01 12:05] LABS: Glucose,Whole Blood 269 mg/dL (75-99)
--- NOTE | 2019-06-01 13:26 | P.PN ---
Subjective Progress Note Date: 06/01/19 Principal diagnosis: Acute diastolic congestive heart failure 79-year-old white female patient of Dr. Alexander Sarkar, with past medical history of hypertension, hyperlipidemia, osteoarthritis, diabetes mellitus type 2, chronic kidney disease stage III, lifetime nonsmoker, chronic congestive heart failure with diastolic dysfunction with EF between 60-65%, moderate aortic stenosis, mild MR, mild TR, moderate pulmonary hypertension with right-sided pressures of 55 mmHg. Patient was recently hospitalized in early April for shortness of breath related to acute tracheobronchitis. Patient was managed with IV steroids, nebulized bronchodilators. Patient also had worsening of her renal function during that admission related to diuretic therapy, she follows with Dr. Fontana for her history of CK-MB, she clinically improved and was discharged home. On 05/23/2019 patient presented to her PCPs office with complaints of worsening dyspnea, fatigue, exertional dyspnea and orthopnea, she denies any chest pain, denies any fever or chills, she states she has no appetite, but no nausea vomiting or diarrhea. She states she can hardly get dressed because she is so fatigued and weak. She denies any weight gain, however she has significant amount of lower extremity edema 2+ pitting edema. Chest x-ray was obtained, showing cardiomegaly, and probable subsegmental basilar atelectatic changes. No acute pulmonary process, lab work showed a white blood cell count is 6.9, hemoglobin of 10.5, sodium is 131, the rest of the electrolytes were within normal limits, BUN 62, creatinine is 2.23 glucose was 323, proBNP was 8840. Room air pulse ox is 91%, patient is afebrile, hemody namically patient is stable. D-dimer and troponins are pending, patient has some end expiratory wheezes, no significant cough or congestion. Breathing treatments have been started. On 05/24/2019 patient seen in follow-up on the general medical floor, she still states she is dyspneic with exertion, does not appear to be in any acute distress, she is on room air, no complaints of chest pain, still significant edema in bilateral lower extremities 1-2+, patient has been on oral diuretics, she has been transitioned to IV diuretics and 60 mg twice daily per cardiology. Lung sounds are clear, no rhonchi, no wheezing, no rales. Cardiology is following. Troponins were mildly elevated at 0.039, 0.036, 0.037. On 05/25/2019, the patient is feeling better compared to yesterday. She still has edema in lower extremities. Over, based on the fluid balance, the patient has lost approximately 2 kg since yesterday. She is less short of breath compared to yesterday. She is on IV Lasix milligrams IV push every 12 hours. Creatinine is up to 2.5. ProBNP level was elevated in the 8000 range. No chest pain. No angina. There is a cardiac murmur that was noted and the patient has moderate degree of pulmonary hypertension along with moderate degree of aortic stenosis. Her ejection fraction is in the order of 60-65% and she has diastolic heart failure in addition to chronic stage III kidney disease. Other comorbidities including hypertension and hyperlipidemia and diabetes mellitus ty pe 2. On 05/26/2019 and seeing the patient for a follow-up. She is resting comfortably in bed. Reportedly improvement in her shortness of breath. She is also reporting improvement in the lower extremity edema. No fever. No chills. Creatinine is stable at 2.5. She is taking Lasix 60 mg IV push every 12 hours. She had a negative fluid balance. She has diabetes another liter since yesterday. No other significant complaints. No fever. No chills. No cough. No sputum production. No symptoms of bronchitis or pneumonia at this point in time. The patient is no other complaints. On 05/27/2019 and seeing the patient for a follow-up. Gradually improving. Lower extremity edema is nearly recovered. Creatinine stable at 2.6. Still on IV Lasix. Most of the shortness of breath. I took her off the oxygen and I want to see if she is able to maintain her pulse ox above 90%. No significant sputum production. No chest pain. No pleurisy. No cardiac arrhythmias. The patient is seen today 05/28/2019 in follow-up on the regular medical floor. She is awake and alert in no acute distress. She is continuing to utilize oxygen at 2 L/m per nasal cannula with low O2 saturations on room air. She states her breathing is improved. She has a dry nonproductive cough. No fever, chills or night sweats. She does have worsening renal failure with a creatinine of 2.94. She is currently on Lasix 60 mg by mouth twice a day. The patient is seen today 05/29/2019 in follow-up on the regular medical floor. She is currently sitting up in bed. Awake and alert in no acute distress. Neph rology is at the bedside explaining the plan of care. Her chest x-ray shows increase vascular congestion. Her creatinine is elevated. The plan is for a Lasix drip at 5 mg per hour. She is currently maintaining O2 saturations in the upper 90s on 4 L/m per nasal cannula. Lungs sounds with some crackles in the posterior bases. Diminished. Sodium 128. Potassium 4.8. Creatinine 3.22. Glucose 177. She is continued on DuoNeb inhalations, Tessalon Perles. Patient was reevaluated today in the ICU on 05/30/2019. He is an overflow in the ICU. Patient responded extremely well to diuretics, however she is developing worsening renal functioning. Chest x-ray is definitely improved, there is less interstitial edema. Patient is in negative fluid balance, and she is breathing a bit easier. Seen by nephrology, felt that her renal functioning is worse mostly because of a cardiorenal syndrome. Patient is also known to have chronic kidney disease stage III her creatinine normally is in the range of 1.5-1.7. Patient also has moderate aortic stenosis contributing to her diastolic congestive heart failure. And she is hyponatremic today. With a sodium of 127, being addressed by nephrology on the case. Reevaluated today on 05/31/2019, patient remains in the ICU, she is an overflow. Continues on Lasix drip at 10 mg per hour. Good urine output, chest x-ray continues to show some improvement. Renal functioning is stable, creatinine is 3.11 today. Patient is maintaining a negative fluid balance. She is on 3 L nasal cannula. In no distress, she does have occasional cough. Reevaluated today on , remains in the ICU as an overflow. Remains on Lasix drip at 10 mg per hour. Patient is -2 L in the last 2 days. Renal functioning seems to be holding in spite of aggressive diuresis. Pulmonary-mckinney she is feeling better breathing easier, hardly any cough, no wheezing, no s hortness of breath. Objective - Vital Signs Vital signs: Vital Signs Temp 98.0 F 02/06/20 08:00 Pulse 79 06/01/19 12:00 Resp 22 06/01/19 12:00 BP 108/66 06/01/19 12:00 Pulse Ox 94 L 06/01/19 12:00 Intake & Output 05/31/19 06/01/19 06/01/19 18:59 06:59 18:59 Intake Total 939.417 742.083 490 Output Total 1000 800 350 Balance -60.583 -57.917 140 Weight 87.2 kg Intake: IV 170 130 Furosemide 100 mg In 50 Sodium Chloride 0.9% 90 ml @ 10 MG/HR 10 mls/hr IV .Q10H [facility] Rx#: [id number] Sodium Chloride 0.9% 1, 120 30 000 ml @ 10 mls/hr IV . Q24H [facility] Rx#:[id number] Sodium Ferric Gluconat- 100 Sucrose 125 mg In Sodium Chloride 0.9% 100 ml @ 100 mls/hr IVPB DAILY [facility] Rx#:[id number] Intake, IV Titration 79.417 92.083 Amount Furosemide 100 mg In 79.417 92.083 Sodium Chloride 0.9% 90 ml @ 10 MG/HR 10 mls/hr IV .Q10H [facility] Rx#: [id number] Oral 240 360 Blood Product 860 240 Output: Urine 1000 800 350 Other: Voiding Method Toilet Toilet Toilet # Bowel Movements 1 1 - Exam GENERAL EXAM: Alert, very pleasant, 79-year-old female, in no distress. HEENT: PERRLA, EOMI, no icterus. Dry mucous membranes. CHEST: No chest wall deformity. Symmetrical expansion. LUNGS: Crackles at the bases no rhonchi no wheezes. CVS: Regular rate and rhythm, normal S1 and S2, no gallops, 2/6 systolic murmur thought the precordium. ABDOMEN: Soft, nontender. No hepatosplenomegaly, normal bowel sounds, no guarding or rigidity. EXTREMITIES: No clubbing, no cyanosis, 2+ pulses and upper and lower extremities. 1+ bipedal edema. MUSCULOSKELETAL: Muscle strength and tone normal. SPINE: No scoliosis or deformity SKIN: No rashes CENTRAL NERVOUS SYSTEM: No focal deficits, tone is normal in all 4 extremities. PSYCHIATRIC: Alert and oriented -3. Appropriate affect. Intact judgment and insight. - Labs CBC & Chem 7: 05/31/19 05:10 06/01/19 05:32 Labs: Abnormal Lab Results - Last 24 Hours (Table) 05/31/19 05/31/19 05/31/19 Range/Units 05:10 16:54 20:32 Sodium (137-145) mmol/L Chloride (98-107) mmol/L BUN (7-17) mg/dL Creatinine (0.52-1.04) mg/dL Glucose (74-99) mg/dL POC Glucose (mg/dL) 243 H 231 H (75-99) mg/dL Calcium (8.4-10.2) mg/dL Iron 19 L (50-170) ug/dL % Saturation 7.25 L (12.00-45.00) 06/01/19 06/01/19 Range/Units 05:32 12:04 Sodium 130 L (137-145) mmol/L Chloride 96 L (98-107) mmol/L BUN 59 H (7-17) mg/dL Creatinine 3.04 H (0.52-1.04) mg/dL Glucose 127 H (74-99) mg/dL POC Glucose (mg/dL) 269 H (75-99) mg/dL Calcium 8.1 L (8.4-10.2) mg/dL Iron (50-170) ug/dL % Saturation (12.00-45.00) Assessment and Plan Assessment: Impression: Acute on chronic diastolic congestive heart failure Acute on chronic kidney injury Moderate aortic stenosis Mild intermittent asthma, presently stable. Moderate to severe pulmonary hypertension secondary to valvular heart disease Type 2 diabetes, poorly controlled Lifetime nonsmoker. Benign essential hypertension Chronic cor pulmonale Hyponatremia secondary to diuretics. Improving. History of bowel obstruction requiring surgical repair. Recommendation: Continue diuretics as per nephrology and cardiology. Continue Lasix drip at 10 mg per hour Continue bronchodilators. Continue to monitor electrolytes and renal profile on a daily basis. Pulmonary mckinney, patient is improving slowly. And that's mostly with diuresis. Transfer out of the ICU once a monitor bed is available. We'll continue to follow. Time with Patient: Less than 30
--- NOTE | 2019-06-01 15:53 | P.PN ---
Subjective Progress Note Date: 06/01/19 Principal diagnosis: Patient is being treated for hypoxic respiratory failure patient doesn't use any oxygen at home patient is presently on 2 L titrating fairly well and patient is wheezing quite a bit and patient does have COPD history as well as CHF patient was started on Pulmicort is unable to sleep because of cough put her on nighttime as needed the Robitussin with codeine. Patient is on Lasix patient is becoming hypernatremic at believe she is becoming hypovolemic has Pedal edema improved because of which I'll switch her Lasix to oral we'll repeat the labs tomorrow again . Creatinine has gone up a little bit today. Constitutional: Denied any fatigue denied any fever. Cardio vascular: denied any chest pain, palpitations Gastrointestinal denied any nausea vomiting Pulmonary: Still bit short of breath and still coughing 05/29/2019 Patient is sitting up in the bed stating that last night she was sitting up unable to sleep and had a brief few moments of feeling like she was unable to get any air and was placed on high flow oxygen and is currently on 4 L of oxygen via nasal cannula. Patient states that she does not use any oxygen at home and is concerned go home but this may happen again. Patient had a chest x-ray showing congestive heart failure and pulmonary edema and pleural fluid that appears significantly increased to prior exam. Patient was also seen by nephrology as her creatinine has worsened and is currently 3.22. Patient was receiving IV Lasix and is being placed on IV Lasix drip. The current unit that she is on does not manage Lasix drips and patient will be moved to the ICU in the [facility] overflow to be closely monitored. 05/30/2019 Patient is sitting up in bed with no acute overnight issues. Patient states that her breathing has improved denies any worsening shortness of breath. Patient is maintained on Lasix drip at 5ml/hr with oxygen saturations of 95-97% on 4 L via nasal cannula. Repeat chest x-ray this morning shows improvement in the volume status any radiation with persistent cardiomegaly and probable small pleural effusions. Creatinine slightly improved this morning and is 3.12. Review of systems: Cardiovascular: Reports of chest pain or palpitations Respiratory: No reports of worsening shortness of breath, no reports of cough GI: No reports of nausea, vomiting, or diarrhea : No reports of dysuria or retention 05/31/2019 Patient remains in the ICU as an overflow awaiting a bed on selective and is being closely monitored. Patient is currently maintained on a Lasix drip at 10 mg per hour as she continues to have shortness of breath with exertion and becomes severely hypoxic without oxygen. Creatinine slightly improved and is 3.11 today. Vision is currently on 3 L of oxygen via nasal cannula with saturations in the low 90s. Repeat chest x-ray today shows congestive heart failure, possibly pulmonary artery hypertension, basilar effusions and associated edema versus atelectasis. 06/01/2019 In follow-up today patient remains in the ICU as an overflow and is being closely monitored. Patient remains on Lasix drip at 10 mg per hour and metolazone has been added. Patient remains on 3 L of oxygen via nasal cannula and continues to be quite winded with exertion and oxygen saturations drop below 88% if on room air. Creatinine today is 3.04 and slightly improved. Patient is receiving iron transfusions 1 of 3 today. Will continue to closely monitor and discuss with the patient and daughter about increasing activity as tolerated. Objective - Vital Signs Vital signs: Vital Signs Temp 98.0 F 06/01/19 08:00 Pulse 79 06/01/19 12:00 Resp 22 06/01/19 12:00 BP 108/66 06/01/19 12:00 Pulse Ox 94 L 06/01/19 12:00 Intake & Output 05/31/19 06/01/19 06/01/19 18:59 06:59 18:59 Intake Total 939.417 742.083 490 Output Total 1000 800 350 Balance -60.583 -57.917 140 Weight 87.2 kg Intake: IV 170 130 Furosemide 100 mg In 50 Sodium Chloride 0.9% 90 ml @ 10 MG/HR 10 mls/hr IV .Q10H [facility] Rx#: [id number] Sodium Chloride 0.9% 1, 120 30 000 ml @ 10 mls/hr IV . Q24H [facility] Rx#:[id number] Sodium Ferric Gluconat- 100 Sucrose 125 mg In Sodium Chloride 0.9% 100 ml @ 100 mls/hr IVPB DAILY [facility] Rx#:[id number] Intake, IV Titration 79.417 92.083 Amount Furosemide 100 mg In 79.417 92.083 Sodium Chloride 0.9% 90 ml @ 10 MG/HR 10 mls/hr IV .Q10H [facility]IR Rx#: [id number] Oral 240 360 Blood Product 860 240 Output: Urine 1000 800 350 Other: Voiding Method Toilet Toilet Toilet # Bowel Movements 1 1 - Exam GENERAL: The patient is alert and oriented x3, not in any acute distress. Well developed, well nourished. HEENT: Pupils are round and equally reacting to light. EOMI. No scleral icterus. No conjunctival pallor. Normocephalic, atraumatic. No pharyngeal erythema. No thyromegaly. CARDIOVASCULAR: S1 and S2 present. No murmurs, rubs, or gallops. PULMONARY: Diminished breath sounds bilaterally with scattered crackles noted at the bases and mild expiratory wheezing noted. Slight improvement from yesterday of wheezing ABDOMEN: Soft, nontender, nondistended, normoactive bowel sounds. No palpable organomegaly. MUSCULOSKELETAL: No joint swelling or deformity. EXTREMITIES: No cyanosis, clubbing, or pedal edema. Mild lower extremity edema bilaterally. Compression hose noted NEUROLOGICAL: Gross neurological examination did not reveal any focal deficits. SKIN: No rashes. - Labs CBC & Chem 7: 05/31/19 05:10 06/01/19 05:32 Labs: Abnormal Lab Results - Last 24 Hours (Table) 05/31/19 05/31/19 05/31/19 Range/Units 05:10 16:54 20:32 Sodium (137-145) mmol/L Chloride (98-107) mmol/L BUN (7-17) mg/dL Creatinine (0.52-1.04) mg/dL Glucose (74-99) mg/dL POC Glucose (mg/dL) 243 H 231 H (75-99) mg/dL Calcium (8.4-10.2) mg/dL Iron 19 L (50-170) ug/dL % Saturation 7.25 L (12.00-45.00) 06/01/19 06/01/19 Range/Units 05:32 12:04 Sodium 130 L (137-145) mmol/L Chloride 96 L (98-107) mmol/L BUN 59 H (7-17) mg/dL Creatinine 3.04 H (0.52-1.04) mg/dL Glucose 127 H (74-99) mg/dL POC Glucose (mg/dL) 269 H (75-99) mg/dL Calcium 8.1 L (8.4-10.2) mg/dL Iron (50-170) ug/dL % Saturation (12.00-45.00) Assessment and Plan Assessment: -Acute hypoxic respiratory failure secondary to congestive heart failure chronic diastolic dysfunction with acute exacerbation. Patient is maintained on a Lasix drip at 10 ML per hour and will continue at this time. Metolazone was added and will continue to monitor vital signs and labs closely. -COPD with mild acute exacerbation -moderate carotid stenosis -Hyponatremia possibly due to diuretic therapy. Sodium is 130 -type 2 diabetes mellitus -Chronic kidney disease stage IV: Current creatinine today has slightly improved and is 3.04. Nephrology following -History of bowel obstruction with surgical repair in the past -Hypertension -Hyperlipidemia
[2019-06-01 16:57] LABS: Glucose,Whole Blood 202 mg/dL (75-99)
[2019-06-01 20:15] LABS: Glucose,Whole Blood 269 mg/dL (75-99)
[2019-06-02] MEDS: FUROSEMIDE 100 MG in SODIUM CHLORIDE 0.9% 90 ML IV SCH ×3 (03:32→20:34)
[2019-06-02 05:40] LABS: Glucose,Whole Blood 169 mg/dL (75-99)
[2019-06-02] MEDS: PANTOPRAZOLE 40 MG TABLET PO SCH (06:31)
[2019-06-02] MEDS: INSULIN ASPART (NovoLOG) 100 UNIT/ML VIAL SQ SCH ×4 (06:31→20:34)
[2019-06-02 07:22] LABS: Basophils % (A) 1 %; Eosinophils # (A) 0.3 k/uL (0-0.7); Eosinophils % (A) 10 %; HCT 22.6 % (34.0-46.0); HGB 7.3 gm/dL (11.4-16.0); Lymphocytes # (A) 0.5 k/uL (1.0-4.8); Lymphocytes % (A) 18 %; MCH 28.7 pg (25.0-35.0); MCHC 32.3 g/dL (31.0-37.0); MCV 88.9 fL (80.0-100.0); Mean Platelet Volume 7.8; Monocytes # (A) 0.2 k/uL (0-1.0); Monocytes % (A) 7 %; Neutrophils # (A) 1.8 k/uL (1.3-7.7); Neutrophils % (A) 62 %; Platelet Count 280 k/uL (150-450); RBC 2.54 m/uL (3.80-5.40); RDW 14.5 % (11.5-15.5); WBC 2.9 k/uL (3.8-10.6)
[2019-06-02] MEDS: BUDESONIDE 0.5 MG/2 ML NEBU INHALATION SCH ×2 (07:34→20:15)
[2019-06-02] MEDS: IPRATROPIUM-ALBUTEROL 3 ML NEB INHALATION SCH ×4 (07:34→20:15)
[2019-06-02 07:43] LABS: Calcium 7.8 mg/dL (8.4-10.2)
[2019-06-02] MEDS: PIOGLITAZONE 30 MG TAB PO SCH (08:13)
[2019-06-02] MEDS: METOLAZONE 5 MG TAB PO SCH (08:13)
[2019-06-02] MEDS: ISOSORBIDE MONONITRATE ER 30 MG TAB.ER.24H PO SCH (08:14)
[2019-06-02] MEDS: ATORVASTATIN 40 MG TAB PO SCH (08:14)
[2019-06-02] MEDS: amLODIPine 10 MG TAB PO SCH (08:14)
[2019-06-02] MEDS: ATENOLOL 25 MG TAB PO SCH ×2 (08:14→20:34)
[2019-06-02] MEDS: hydrALAZINE HCL 50 MG TAB PO SCH ×3 (08:14→20:34)
[2019-06-02] MEDS: POTASSIUM CHLORIDE ER 20 MEQ TAB.ER PO SCH (08:14)
[2019-06-02] MEDS ORDERED: LIDOCAINE-PRILOCAINE 2.5-2.5% CREAM 5 GM TUBE TOPICAL STA (10:09)
--- NOTE | 2019-06-02 11:17 | P.PN ---
Subjective Patient is seen in follow-up for acute kidney injury on chronic kidney disease. Renal function is fairly stable. Creatinine 3.11 today. Currently maintained on Lasix drip. Still has lower extremity edema. Weight is trending down. She is on 3 L nasal cannula. Dyspnea stable. Vital signs are stable. General: The patient appeared well nourished and normally developed. HEENT: Head exam is unremarkable. Neck is without jugular venous distension. LUNGS: Scattered wheezing. Breath sounds decreased. HEART: Rate and Rhythm are regular. First and second heart sounds normal. No murmurs, rubs or gallops. ABDOMEN: Abdominal exam reveals normal bowel sounds. Non-tender and non- distended. No evidence of peritonitis. EXTREMITITES: 1+ edema. Objective - Vital Signs Vital signs: Vital Signs Temp 98.5 F 06/02/19 08:58 Pulse 82 06/02/19 08:58 Resp 20 06/02/19 08:58 BP 120/56 06/02/19 08:58 Pulse Ox 94 L 06/02/19 08:58 Intake & Output 06/01/19 06/02/19 06/02/19 18:59 06:59 18:59 Intake Total 665.667 249.667 120 Output Total 1150 400 Balance -484.333 -150.333 120 Weight 86.1 kg Intake: IV 210 160 Furosemide 100 mg In 80 Sodium Chloride 0.9% 90 ml @ 10 MG/HR 10 mls/hr IV .Q10H [facility] Rx#: [id number] Sodium Chloride 0.9% 1, 110 80 000 ml @ 10 mls/hr IV . Q24H [facility] Rx#:[id number] Sodium Ferric Gluconat- 100 Sucrose 125 mg In Sodium Chloride 0.9% 100 ml @ 100 mls/hr IVPB DAILY [facility] Rx#:[id number] Intake, IV Titration 95.667 89.667 Amount Furosemide 100 mg In 95.667 89.667 Sodium Chloride 0.9% 90 ml @ 10 MG/HR 10 mls/hr IV .Q10H [facility] Rx#: [id number] Oral 360 120 Output: Urine 1150 400 Other: Voiding Method Toilet Toilet # Voids 1 - Labs CBC & Chem 7: 06/02/19 07:04 06/02/19 07:04 Labs: Abnormal Lab Results - Last 24 Hours (Table) 06/01/19 06/01/19 06/01/19 Range/Units 12:04 16:54 20:13 WBC (3.8-10.6) k/uL RBC (3.80-5.40) m/uL Hgb (11.4-16.0) gm/dL Hct (34.0-46.0) % Lymphocytes # (1.0-4.8) k/uL Sodium (137-145) mmol/L Chloride (98-107) mmol/L BUN (7-17) mg/dL Creatinine (0.52-1.04) mg/dL Glucose (74-99) mg/dL POC Glucose (mg/dL) 269 H 202 H 269 H (75-99) mg/dL Calcium (8.4-10.2) mg/dL 06/02/19 06/02/19 06/02/19 Range/Units 05:39 07:04 07:04 WBC 2.9 L (3.8-10.6) k/uL RBC 2.54 L (3.80-5.40) m/uL Hgb 7.3 L (11.4-16.0) gm/dL Hct 22.6 L (34.0-46.0) % Lymphocytes # 0.5 L (1.0-4.8) k/uL Sodium 131 L (137-145) mmol/L Chloride 97 L (98-107) mmol/L BUN 63 H (7-17) mg/dL Creatinine 3.11 H (0.52-1.04) mg/dL Glucose 142 H (74-99) mg/dL POC Glucose (mg/dL) 169 H (75-99) mg/dL Calcium 7.8 L (8.4-10.2) mg/dL Assessment and Plan Plan: Assessment: 1. Acute kidney injury mostly prerenal secondary to cardiorenal syndrome. Creatinine peaked at 3.22 this admission. Stable at 3.11 today. 2. Chronic kidney disease stage III with baseline creatinine in the range of 1.5-1.7 in April 2016 to April 2017. However this year her renal function has been worse with creatinine near 2.5. There is concern for progression of underlying chronic kidney disease. Ultrasound from earlier this month revealed small sized kidneys without any hydronephrosis. UA from earlier this month revealed trace proteinuria, otherwise benign. 3. Acute on chronic diastolic CHF with moderate aortic stenosis. 4. Volume overload with pulmonary edema. Slowly improving. 5. Hyponatremia, currently hypervolemic. 6. Hypertension with chronic kidney disease. Controlled. 7. History of COPD. 8. Diabetes mellitus. 9. Anemia of chronic kidney disease. Iron deficiency noted. Plan: Increase Lasix drip to 15 mL an hour for 24 hours. Check chest x-ray tomorrow. Continue metolazone 5 mg once daily. Low-salt diet and 1500 mL fluid restriction. IV iron 3 doses. Second dose today. Avoid nephrotoxins. Strict I's and O's. Repeat electrolytes in the morning. Patient states that she does not want any form of renal replacement therapy if indicated.
[2019-06-02] MEDS: SODIUM FERRIC GLUCONAT-SUCROSE 125 MG in SODIUM CHLORIDE 0.9% 100 ML IVPB SCH (11:42)
[2019-06-02 11:48] LABS: Glucose,Whole Blood 208 mg/dL (75-99)
--- NOTE | 2019-06-02 12:43 | P.PN ---
Subjective Progress Note Date: 06/02/19 Principal diagnosis: Shortness of breath, weakness 79-year-old white female patient of Dr. Alexander Sarkar, with past medical history of hypertension, hyperlipidemia, osteoarthritis, diabetes mellitus type 2, chronic kidney disease stage III, lifetime nonsmoker, chronic congestive heart failure with diastolic dysfunction with EF between 60-65%, moderate aortic stenosis, mild MR, mild TR, moderate pulmonary hypertension with right-sided pressures of 55 mmHg. Patient was recently hospitalized in early April for shortness of breath related to acute tracheobronchitis. Patient was managed with IV steroids, nebulized bronchodilators. Patient also had worsening of her renal function during that admission related to diuretic therapy, she follows with Dr. Fontana for her history of CK-MB, she clinically improved and was discharged home. On 05/23/2019 patient presented to her PCPs office with complaints of worsening dyspnea, fatigue, exertional dyspnea and orthopnea, she denies any chest pain, denies any fever or chills, she states she has no appetite, but no nausea vomiting or diarrhea. She states she can hardly get dressed because she is so fatigued and weak. She denies any weight gain, however she has significant amount of lower extremity edema 2+ pitting edema. Chest x-ray was obtained, showing cardiomegaly, and probable subsegmental basilar atelectatic changes. No acute pulmonary process, lab work showed a white blood cell count is 6.9, hemoglobin of 10.5, sodium is 131, the rest of the electrolytes were within normal limits, BUN 62, creatinine is 2.23 glucose was 323, proBNP was 8840. Room air pulse ox is 91%, patient is afebrile, hemodynamically patient is stable. D-dimer and troponins are pending, patient has some end expiratory wheezes, no significant cough or congestion. Breathing treatments have been started. On 05/24/2019 patient seen in follow-up on the general medical floor, she still states she is dyspneic with exertion, does not appear to be in any acute distress, she is on room air, no complaints of chest pain, still significant edema in bilateral lower extremities 1-2+, patient has been on oral diuretics, she has been transitioned to IV diuretics and 60 mg twice daily per cardiology. Lung sounds are clear, no rhonchi, no wheezing, no rales. Cardiology is following. Troponins were mildly elevated at 0.039, 0.036, 0.037. On 06/02/2019 patient seen in follow-up on selective care unit, is transferred out of the intensive care unit yesterday, she is currently resting comfortably in bed, she is on 3 L of oxygen with a pulse ox of 94%, afebrile, no comparative chest pain, he is on IV diuretics, at 10 mg, and nephrology is planning on increasing it to 15 mg today, patient is in -634 mL fluid balance, and her weigh t is down by 1.1 kg in the last 24 hours, however she still has lower extremity edema, and shortness of breath and apparently earlier this morning she had a sensation of not being able to breathe, and the episode of respiratory distress. no new chest x-rays, today's labs have been reviewed. White blood cell count today is 2.9, hemoglobin is 7.3, sodium is 131, potassium 4.0, chloride is 97, B1 is 63 creatinine is 3.11. Apparently patient declined a RODRIGO. Cardiology is following. Lung sounds on today's exam are positive for diminished breath sounds with a few scattered wheezes Objective - Vital Signs Vital signs: Vital Signs Temp 98.2 F 06/02/19 12:06 Pulse 68 06/02/19 12:06 Resp 20 06/02/19 12:06 BP 119/58 06/02/19 12:06 Pulse Ox 94 L 06/02/19 12:06 Intake & Output 06/01/19 06/02/19 06/02/19 18:59 06:59 18:59 Intake Total 665.667 249.667 120 Output Total 1150 400 Balance -484.333 -150.333 120 Weight 86.1 kg Intake: IV 210 160 Furosemide 100 mg In 80 Sodium Chloride 0.9% 90 ml @ 10 MG/HR 10 mls/hr IV .Q10H [facility] Rx#: [id number] Sodium Chloride 0.9% 1, 110 80 000 ml @ 10 mls/hr IV . Q24H [facility] Rx#:[id number] Sodium Ferric Gluconat- 100 Sucrose 125 mg In Sodium Chloride 0.9% 100 ml @ 100 mls/hr IVPB DAILY [facility] Rx#:[id number] Intake, IV Titration 95.667 89.667 Amount Furosemide 100 mg In 95.667 89.667 Sodium Chloride 0.9% 90 ml @ 10 MG/HR 10 mls/hr IV .Q10H [facility] Rx#: [id number] Oral 360 120 Output: Urine 1150 400 Other: Voiding Method Toilet Toilet # Voids 1 - Exam GENERAL EXAM: Alert, very pleasant, 79-year-old white female, speaks with a [place]ian accent on 3 L of oxygen pulse ox is 94% comfortable in no apparent distress. HEAD: Normocephalic/atraumatic. EYES: Normal reaction of pupils, equal size. Conjunctiva pink, sclera white. NOSE: Clear with pink turbinates. THROAT: No erythema or exudates. NECK: No masses, no JVD, no thyroid enlargement, no adenopathy. CHEST: No chest wall deformity. Symmetrical expansion. LUNGS: Diminished air entry with end expiratory wheezes CVS: Regular rate and rhythm, normal S1 and S2, no gallops, systolic murmur loudest at the right sternal border, no rubs ABDOMEN: Soft, nontender. No hepatosplenomegaly, normal bowel sounds, no guarding or rigidity. EXTREMITIES: No clubbing, 1+lower extremity edema no cyanosis, 2+ pulses and upper and lower extremities. MUSCULOSKELETAL: Muscle strength and tone normal. SPINE: No scoliosis or deformity SKIN: No rashes CENTRAL NERVOUS SYSTEM: Alert and oriented -3. No focal deficits, tone is normal in all 4 extremities. PSYCHIATRIC: Alert and oriented -3. Appropriate affect. Intact judgment and insight. - Labs CBC & Chem 7: 06/02/19 07:04 06/02/19 07:04 Labs: Abnormal Lab Results - Last 24 Hours (Table) 06/01/19 06/01/19 06/02/19 Range/Units 16:54 20:13 05:39 WBC (3.8-10.6) k/uL RBC (3.80-5.40) m/uL Hgb (11.4-16.0) gm/dL Hct (34.0-46.0) % Lymphocytes # (1.0-4.8) k/uL Sodium (137-145) mmol/L Chloride (98-107) mmol/L BUN (7-17) mg/dL Creatinine (0.52-1.04) mg/dL Glucose (74-99) mg/dL POC Glucose (mg/dL) 202 H 269 H 169 H (75-99) mg/dL Calcium (8.4-10.2) mg/dL 06/02/19 06/02/19 06/02/19 Range/Units 07:04 07:04 11:45 WBC 2.9 L (3.8-10.6) k/uL RBC 2.54 L (3.80-5.40) m/uL Hgb 7.3 L (11.4-16.0) gm/dL Hct 22.6 L (34.0-46.0) % Lymphocytes # 0.5 L (1.0-4.8) k/uL Sodium 131 L (137-145) mmol/L Chloride 97 L (98-107) mmol/L BUN 63 H (7-17) mg/dL Creatinine 3.11 H (0.52-1.04) mg/dL Glucose 142 H (74-99) mg/dL POC Glucose (mg/dL) 208 H (75-99) mg/dL Calcium 7.8 L (8.4-10.2) mg/dL Assessment and Plan Plan: Assessment: #1. Acute dyspnea related to acute exacerbation of diastolic congestive heart failure #2. Recent hospitalization for acute tracheobronchitis #3. Probable underlying bronchial asthma, however patient has not been following up in the outpatient clinic for outpatient PFT #4. Moderate aortic stenosis #5. Chronic congestive heart failure with diastolic dysfunction and EF of 60- 65% #6. Diabetes mellitus type 2, poorly controlled #7. Chronic kidney disease stage III #8. Lifetime nonsmoker #9. History of diverticulitis #10. History of bowel obstruction with surgical repair #11. Hypertension #12. Hyperlipidemia #13. Lower extremity edema related to cor pulmonale Plan: Continue diuretics per nephrology recommendations, patient is maintaining negative fluid balance, still has some residual lower extremity edema, and does have exertional dyspnea. Continue breathing treatments. She may reconsider transesophageal echocardiogram. I performed a history & physical examination of the patient and discussed their management with my nurse practitioner, Zulma Rasheed. I reviewed the nurse practitioner's note and agree with the documented findings and plan of care. Lung sounds are positive for diminished breath sounds with end expiratory wheezing. The findings and the impression was discussed with the patient. I attest to the documentation by the nurse practitioner. Time with Patient: Less than 30
--- NOTE | 2019-06-02 13:41 | P.PN ---
Subjective Progress Note Date: 06/02/19 Patient seen and examined today on the telemetry unit, she was transferred out of the intensive care unit, resting comfortably in bed today, afebrile, continues to be on IV Lasix drip at 15 mg per hour which was increased by nephrology today. Patient continues to have evidence of lower extremity edema and is still somewhat short of breath. Blood pressure 120/60 with a heart rate in the 60s, 94% on 3 L of oxygen. Blood cell count 2.9, hemoglobin 7.3, platelet count 280. Sodium 131, potassium 4.0, BUN 63, creatinine 3.1. Objective - Vital Signs Vital signs: Vital Signs Temp 98.2 F 06/02/19 12:06 Pulse 68 06/02/19 12:06 Resp 20 06/02/19 12:06 BP 119/58 06/02/19 12:06 Pulse Ox 94 L 06/02/19 12:06 Intake & Output 06/01/19 06/02/19 06/02/19 18:59 06:59 18:59 Intake Total 665.667 249.667 240 Output Total 1150 400 1 Balance -484.333 -150.333 239 Weight 86.1 kg Intake: IV 210 160 Furosemide 100 mg In 80 Sodium Chloride 0.9% 90 ml @ 15 MG/HR 15 mls/hr IV .Q6H40M [facility] Rx#: [id number] Sodium Chloride 0.9% 1, 110 80 000 ml @ 10 mls/hr IV . Q24H [facility] Rx#:[id number] Sodium Ferric Gluconat- 100 Sucrose 125 mg In Sodium Chloride 0.9% 100 ml @ 100 mls/hr IVPB DAILY [facility] Rx#:[id number] Intake, IV Titration 95.667 89.667 Amount Furosemide 100 mg In 95.667 89.667 Sodium Chloride 0.9% 90 ml @ 15 MG/HR 15 mls/hr IV .Q6H40M [facility] Rx#: [id number] Oral 360 240 Output: Urine 1150 400 Stool 1 Other: Voiding Method Toilet Toilet # Voids 1 0 - Exam GENERAL EXAM: Alert, pleasant, 79-year-old white female, no acute distress at the time of my examination . HEAD: Normocephalic/atraumatic. EYES: Normal reaction of pupils, equal size. Conjunctiva pink, sclera white. NOSE: Clear with pink turbinates. THROAT: No erythema or exudates. NECK: No masses, no JVD, no thyroid enlargement, no adenopathy. CHEST: No chest wall deformity. Symmetrical expansion. LUNGS: Diminished air entry with end expiratory wheezes CVS: Regular rate and rhythm, normal S1 and S2, no gallops, systolic murmur loudest at the right sternal border, no rubs ABDOMEN: Soft, nontender. No hepatosplenomegaly, normal bowel sounds, no guarding or rigidity. EXTREMITIES: No clubbing, 1+lower extremity edema no cyanosis, 2+ pulses and upper and lower extremities. MUSCULOSKELETAL: Muscle strength and tone normal. SPINE: No scoliosis or deformity SKIN: No rashes CENTRAL NERVOUS SYSTEM: Alert and oriented -3. No focal deficits, tone is normal in all 4 extremities. PSYCHIATRIC: Alert and oriented -3. Appropriate affect. Intact judgment and insight. - Labs CBC & Chem 7: 06/02/19 07:04 06/02/19 07:04 Labs: Abnormal Lab Results - Last 24 Hours (Table) 06/01/19 06/01/19 06/02/19 Range/Units 16:54 20:13 05:39 WBC (3.8-10.6) k/uL RBC (3.80-5.40) m/uL Hgb (11.4-16.0) gm/dL Hct (34.0-46.0) % Lymphocytes # (1.0-4.8) k/uL Sodium (137-145) mmol/L Chloride (98-107) mmol/L BUN (7-17) mg/dL Creatinine (0.52-1.04) mg/dL Glucose (74-99) mg/dL POC Glucose (mg/dL) 202 H 269 H 169 H (75-99) mg/dL Calcium (8.4-10.2) mg/dL 06/02/19 06/02/19 06/02/19 Range/Units 07:04 07:04 11:45 WBC 2.9 L (3.8-10.6) k/uL RBC 2.54 L (3.80-5.40) m/uL Hgb 7.3 L (11.4-16.0) gm/dL Hct 22.6 L (34.0-46.0) % Lymphocytes # 0.5 L (1.0-4.8) k/uL Sodium 131 L (137-145) mmol/L Chloride 97 L (98-107) mmol/L BUN 63 H (7-17) mg/dL Creatinine 3.11 H (0.52-1.04) mg/dL Glucose 142 H (74-99) mg/dL POC Glucose (mg/dL) 208 H (75-99) mg/dL Calcium 7.8 L (8.4-10.2) mg/dL Assessment and Plan Plan: Assessment and plan: #1. Acute dyspnea related to acute exacerbation of diastolic congestive heart failure #2. Recent hospitalization for acute tracheobronchitis #3. Probable underlying bronchial asthma, however patient has not been fo llowing up in the outpatient clinic for outpatient PFT #4. Moderate aortic stenosis #5. Chronic congestive heart failure with diastolic dysfunction and EF of 60- 65% #6. Diabetes mellitus type 2, poorly controlled #7. Chronic kidney disease stage III #8. Lifetime nonsmoker #9. History of diverticulitis #10. History of bowel obstruction with surgical repair #11. Hypertension #12. Hyperlipidemia #13. Lower extremity edema related to cor pulmonale Plan From cardiology's perspective, we will continue IV Lasix drip as per nephrology. Continue to monitor the intake and output along with daily weights and daily lytes BUN and creatinine. DNP note has been reviewed, I agree with a documented findings and plan of care. Patient was seen and examined.
--- NOTE | 2019-06-02 15:19 | P.PN ---
Subjective Progress Note Date: 06/02/19 Principal diagnosis: Patient is being treated for hypoxic respiratory failure patient doesn't use any oxygen at home patient is presently on 2 L titrating fairly well and patient is wheezing quite a bit and patient does have COPD history as well as CHF patient was started on Pulmicort is unable to sleep because of cough put her on nighttime as needed the Robitussin with codeine. Patient is on Lasix patient is becoming hypernatremic at believe she is becoming hypovolemic has Pedal edema improved because of which I'll switch her Lasix to oral we'll repeat the labs tomorrow again . Creatinine has gone up a little bit today. Constitutional: Denied any fatigue denied any fever. Cardio vascular: denied any chest pain, palpitations Gastrointestinal denied any nausea vomiting Pulmonary: Still bit short of breath and still coughing 05/29/2019 Patient is sitting up in the bed stating that last night she was sitting up unable to sleep and had a brief few moments of feeling like she was unable to get any air and was placed on high flow oxygen and is currently on 4 L of oxygen via nasal cannula. Patient states that she does not use any oxygen at home and is concerned go home but this may happen again. Patient had a chest x-ray showing congestive heart failure and pulmonary edema and pleural fluid that appears significantly increased to prior exam. Patient was also seen by nephrology as her creatinine has worsened and is currently 3.22. Patient was receiving IV Lasix and is being placed on IV Lasix drip. The current unit that she is on does not manage Lasix drips and patient will be moved to the ICU in the [facility] overflow to be closely monitored. 05/30/2019 Patient is sitting up in bed with no acute overnight issues. Patient states that her breathing has improved denies any worsening shortness of breath. Patient is maintained on Lasix drip at 5ml/hr with oxygen saturations of 95-97% on 4 L via nasal cannula. Repeat chest x-ray this morning shows improvement in the volume status any radiation with persistent cardiomegaly and probable small pleural effusions. Creatinine slightly improved this morning and is 3.12. Review of systems: Cardiovascular: Reports of chest pain or palpitations Respiratory: No reports of worsening shortness of breath, no reports of cough GI: No reports of nausea, vomiting, or diarrhea : No reports of dysuria or retention 05/31/2019 Patient remains in the ICU as an overflow awaiting a bed on selective and is being closely monitored. Patient is currently maintained on a Lasix drip at 10 mg per hour as she continues to have shortness of breath with exertion and becomes severely hypoxic without oxygen. Creatinine slightly improved and is 3.11 today. Vision is currently on 3 L of oxygen via nasal cannula with saturations in the low 90s. Repeat chest x-ray today shows congestive heart failure, possibly pulmonary artery hypertension, basilar effusions and associated edema versus atelectasis. 06/01/2019 In follow-up today patient remains in the ICU as an overflow and is being closely monitored. Patient remains on Lasix drip at 10 mg per hour and metolazone has been added. Patient remains on 3 L of oxygen via nasal cannula and continues to be quite winded with exertion and oxygen saturations drop below 88% if on room air. Creatinine today is 3.04 and slightly improved. Patient is receiving iron transfusions 1 of 3 today. Will continue to closely monitor and discuss with the patient and daughter about increasing activity as tolerated. 06/02/2019 In follow-up today patient is on the selective floor being closely monitored. She has been transferred out of the ICU. Patient remains on a Lasix drip which has currently been increased to 15 mg per hour along with metolazone and is being closely monitored. Creatinine slightly worsened today and is currently 3.11 with a sodium of 131. Patient continues to have extreme shortness of breath with exertion and requiring 3 L of oxygen via nasal cannula. She is receiving IV iron transfusion 2 of 3 today. Discussed with the patient and daughter at the bedside about increasing activity as tolerated. Patient is somewhat anxious. Objective - Vital Signs Vital signs: Vital Signs Temp 98.2 F 06/02/19 12:06 Pulse 68 06/02/19 12:06 Resp 20 06/02/19 12:06 BP 119/58 06/02/19 12:06 Pulse Ox 94 L 06/02/19 12:06 Intake & Output 06/01/19 06/02/19 06/02/19 18:59 06:59 18:59 Intake Total 665.667 249.667 120 Output Total 1150 400 Balance -484.333 -150.333 120 Weight 86.1 kg Intake: IV 210 160 Furosemide 100 mg In 80 Sodium Chloride 0.9% 90 ml @ 10 MG/HR 10 mls/hr IV .Q10H [facility] Rx#: [id number] Sodium Chloride 0.9% 1, 110 80 000 ml @ 10 mls/hr IV . Q24H [facility] Rx#:[id number] Sodium Ferric Gluconat- 100 Sucrose 125 mg In Sodium Chloride 0.9% 100 ml @ 100 mls/hr IVPB DAILY [facility] Rx#:[id number] Intake, IV Titration 95.667 89.667 Amount Furosemide 100 mg In 95.667 89.667 Sodium Chloride 0.9% 90 ml @ 10 MG/HR 10 mls/hr IV .Q10H [facility] Rx#: [id number] Oral 360 120 Output: Urine 1150 400 Other: Voiding Method Toilet Toilet # Voids 1 - Exam GENERAL: The patient is alert and oriented x3, not in any acute distress. Well developed, well nourished. HEENT: Pupils are round and equally reacting to light. EOMI. No scleral icterus. No conjunctival pallor. Normocephalic, atraumatic. No pharyngeal erythema. No th yromegaly. CARDIOVASCULAR: S1 and S2 present. No murmurs, rubs, or gallops. PULMONARY: Diminished breath sounds bilaterally and mild expiratory wheezing noted. Slight improvement from yesterday of wheezing ABDOMEN: Soft, nontender, nondistended, normoactive bowel sounds. No palpable organomegaly. MUSCULOSKELETAL: No joint swelling or deformity. EXTREMITIES: No cyanosis, clubbing, or pedal edema. Mild lower extremity edema bilaterally. Compression hose noted NEUROLOGICAL: Gross neurological examination did not reveal any focal deficits. SKIN: No rashes. - Labs CBC & Chem 7: 06/02/19 07:04 06/02/19 07:04 Labs: Abnormal Lab Results - Last 24 Hours (Table) 06/01/19 06/01/19 06/02/19 Range/Units 16:54 20:13 05:39 WBC (3.8-10.6) k/uL RBC (3.80-5.40) m/uL Hgb (11.4-16.0) gm/dL Hct (34.0-46.0) % Lymphocytes # (1.0-4.8) k/uL Sodium (137-145) mmol/L Chloride (98-107) mmol/L BUN (7-17) mg/dL Creatinine (0.52-1.04) mg/dL Glucose (74-99) mg/dL POC Glucose (mg/dL) 202 H 269 H 169 H (75-99) mg/dL Calcium (8.4-10.2) mg/dL 06/02/19 06/02/19 06/02/19 Range/Units 07:04 07:04 11:45 WBC 2.9 L (3.8-10.6) k/uL RBC 2.54 L (3.80-5.40) m/uL Hgb 7.3 L (11.4-16.0) gm/dL Hct 22.6 L (34.0-46.0) % Lymphocytes # 0.5 L (1.0-4.8) k/uL Sodium 131 L (137-145) mmol/L Chloride 97 L (98-107) mmol/L BUN 63 H (7-17) mg/dL Creatinine 3.11 H (0.52-1.04) mg/dL Glucose 142 H (74-99) mg/dL POC Glucose (mg/dL) 208 H (75-99) mg/dL Calcium 7.8 L (8.4-10.2) mg/dL Assessment and Plan Assessment: -Acute hypoxic respiratory failure secondary to congestive heart failure chronic diastolic dysfunction with acute exacerbation. Patient is maintained on a Lasix drip at and is being increased to 15 mL per hour. -COPD with mild acute exacerbation -moderate carotid stenosis -Hyponatremia possibly due to diuretic therapy. Sodium is 131 -type 2 diabetes mellitus -Chronic kidney disease stage IV: Current creatinine today has slightly worsened and is 3.11. Nephrology following -History of bowel obstruction with surgical repair in the past -Hypertension -Hyperlipidemia
[2019-06-02 17:05] LABS: Glucose,Whole Blood 238 mg/dL (75-99)
[2019-06-02] MEDS: SODIUM CHLORIDE 0.9% 1,000 ML IV SCH (17:09)
[2019-06-02 20:16] LABS: Glucose,Whole Blood 288 mg/dL (75-99)
[2019-06-03] MEDS: FUROSEMIDE 100 MG in SODIUM CHLORIDE 0.9% 90 ML IV SCH ×3 (03:12→16:55)
[2019-06-03 06:09] LABS: Glucose,Whole Blood 196 mg/dL (75-99)
[2019-06-03] MEDS: PANTOPRAZOLE 40 MG TABLET PO SCH (06:09)
[2019-06-03] MEDS: INSULIN ASPART (NovoLOG) 100 UNIT/ML VIAL SQ SCH ×4 (06:09→20:36)
--- NOTE | 2019-06-03 06:53 | XR ---
EXAMINATION TYPE: XR chest 1V DATE OF EXAM: 06/03/2019 HISTORY: sob. REFERENCE: Previous study dated 05/31/2019. FINDINGS: The study is quite lordotic in its projection. The heart is enlarged. There is right basilar airspace disease. There are small, bilateral effusions. There is mild vascular congestion. I could not exclude mild edema. IMPRESSION: 1. CHANGES OF CONGESTIVE HEART FAILURE. 2. BIBASILAR AIRSPACE DISEASE MAY REPRESENT CONFLUENT EDEMA OR PNEUMONIA.
[2019-06-03 07:06] LABS: Calcium 7.8 mg/dL (8.4-10.2); Magnesium 1.8 mg/dL (1.6-2.3); Potassium 3.7 mmol/L (3.5-5.1)
[2019-06-03] MEDS: BUDESONIDE 0.5 MG/2 ML NEBU INHALATION SCH ×2 (07:58→20:11)
[2019-06-03] MEDS: IPRATROPIUM-ALBUTEROL 3 ML NEB INHALATION SCH ×4 (07:58→20:11)
--- NOTE | 2019-06-03 08:49 | P.PN ---
Subjective Progress Note Date: 06/03/1906/03: Patient seen and examined today on the telemetry unit, she was transferred out of the intensive care unit, resting comfortably in bed today, afebrile, continues to be on IV Lasix drip at 15 mg per hour which was increased by nephrology today. Patient continues to have evidence of lower extremity edema and is still somewhat short of breath. Blood pressure 120/60 with a heart rate in the 60s, 94% on 3 L of oxygen. Blood cell count 2.9, hemoglobin 7.3, platelet count 280. Sodium 131, potassium 4.0, BUN 63, creatinine 3.1. 06/04: Patient complains of continued difficulty breathing much worse with exertion and states she is only able to get up to the commode chair and is still dyspneic with normal movement. She states she has had no urine output and is very upset about being on a Lasix drip which she states does not help her. Patient is in fact having urine output with 675 out this morning. A chest x-ray reveals heart failure, bibasilar airspace disease may be confluent edema or pneumonia. She is been afebrile, heart rate 72, blood pressure 124/67, pulse ox 96% on 3 L. Magnesium 1.8, sodium 126, potassium 3.7, chloride 90, CO2 22. Renal function is worsening BUN 67 creatinine 3.39. Patient remains on Lasix drip at 15 mg per hour. Objective - Vital Signs Vital signs: Vital Signs Temp 97.9 F 06/03/19 03:27 Pulse 72 06/03/19 08:14 Resp 18 06/03/19 03:28 BP 124/67 06/03/19 03:27 Pulse Ox 96 06/03/19 03:27 Intake & Output 06/02/19 06/03/19 06/03/19 18:59 06:59 18:59 Intake Total 720 133.833 Output Total 1 675 100 Balance 719 -541.167 -100 Weight 87 kg Intake: IV 260 Furosemide 100 mg In 80 Sodium Chloride 0.9% 90 ml @ 15 MG/HR 15 mls/hr IV .Q6H40M [facility] Rx#: [id number] Sodium Chloride 0.9% 1, 80 000 ml @ 10 mls/hr IV . Q24H [facility] Rx#:[id number] Sodium Ferric Gluconat- 100 Sucrose 125 mg In Sodium Chloride 0.9% 100 ml @ 100 mls/hr IVPB DAILY [facility] Rx#:[id number] Intake, IV Titration 100 133.833 Amount Furosemide 100 mg In 100 133.833 Sodium Chloride 0.9% 90 ml @ 15 MG/HR 15 mls/hr IV .Q6H40M [facility] Rx#: [id number] Oral 360 Output: Urine 675 100 Stool 1 Other: Voiding Method Toilet # Voids 0 1 1 # Bowel Movements 1 - Exam GENERAL EXAM: Alert, pleasant, 79-year-old female, no acute distress at the time of my examination . HEAD: Normocephalic/atraumatic. EYES: Normal reaction of pupils, equal size. Conjunctiva pink, sclera white. NOSE: Clear with pink turbinates. NECK: No masses, no JVD, no thyroid enlargement, no adenopathy. LUNGS: Diminished air entry with bilateral end expiratory wheezes CVS: Regular rate and rhythm, normal S1 and S2, no gallops, systolic murmur loudest at the right sternal border, no rubs ABDOMEN: Soft, nontender. No hepatosplenomegaly, normal bowel sounds, no guarding or rigidity. EXTREMITIES: No clubbing, 1+lower extremity edema no cyanosis, 2+ pulses and upper and lower extremities. MUSCULOSKELETAL: Muscle strength and tone normal. SPINE: No scoliosis or deformity SKIN: No rashes CENTRAL NERVOUS SYSTEM: Alert and oriented x3. No focal deficits. PSYCHIATRIC: Appropriate affect. Intact judgment and insight. - Labs CBC & Chem 7: 06/02/19 07:04 06/03/19 05:57 Labs: Abnormal Lab Results - Last 24 Hours (Table) 06/02/19 06/02/19 06/02/19 Range/Units 11:45 17:02 20:12 Sodium (137-145) mmol/L Chloride (98-107) mmol/L BUN (7-17) mg/dL Creatinine (0.52-1.04) mg/dL Glucose (74-99) mg/dL POC Glucose (mg/dL) 208 H 238 H 288 H (75-99) mg/dL Calcium (8.4-10.2) mg/dL 06/03/19 06/03/19 Range/Units 05:57 06:07 Sodium 126 L (137-145) mmol/L Chloride 90 L (98-107) mmol/L BUN 67 H (7-17) mg/dL Creatinine 3.39 H (0.52-1.04) mg/dL Glucose 152 H (74-99) mg/dL POC Glucose (mg/dL) 196 H (75-99) mg/dL Calcium 7.8 L (8.4-10.2) mg/dL Assessment and Plan Plan: #1. Acute dyspnea related to acute exacerbation of diastolic heart failure #2. Recent hospitalization for acute tracheobronchitis #3. Probable underlying bronchial asthma, however patient has not been following up in the outpatient clinic for outpatient PFT #4. Moderate aortic stenosis #5. Chronic congestive heart failure with diastolic dysfunction and EF of 60- 65% #6. Diabetes mellitus type 2, poorly controlled #7. Acute kidney injury with Chronic kidney disease stage IV #8. Lifetime nonsmoker #9. History of diverticulitis #10. History of bowel obstruction with surgical repair #11. Hypertension #12. Hyperlipidemia #13. Lower extremity edema related to cor pulmonale Plan From cardiology's perspective, we will continue IV Lasix drip as per nephrology, currently on 15 mg per hour. Actos and amlodipine were discontinued due to potential for edema, hydralazine decreased to 25 mg twice a day . Continue to monitor the intake and output along with daily weights and daily, lytes BUN and creatinine. Bladder scan ordered by nephrology to rule out urinary retention. DNP note has been reviewed, I agree with a documented findings and plan of care. Patient was seen and examined.
[2019-06-03] MEDS: PIOGLITAZONE 30 MG TAB PO SCH (08:57)
[2019-06-03] MEDS: amLODIPine 10 MG TAB PO SCH (08:57)
[2019-06-03] MEDS: ATENOLOL 25 MG TAB PO SCH ×2 (08:57→19:56)
[2019-06-03] MEDS: hydrALAZINE HCL 50 MG TAB PO SCH (08:57)
[2019-06-03] MEDS: METOLAZONE 5 MG TAB PO SCH (08:57)
[2019-06-03] MEDS: ISOSORBIDE MONONITRATE ER 30 MG TAB.ER.24H PO SCH (08:57)
[2019-06-03] MEDS: POTASSIUM CHLORIDE ER 20 MEQ TAB.ER PO SCH (08:57)
[2019-06-03] MEDS: ATORVASTATIN 40 MG TAB PO SCH (08:57)
[2019-06-03] MEDS: SODIUM FERRIC GLUCONAT-SUCROSE 125 MG in SODIUM CHLORIDE 0.9% 100 ML IVPB SCH (09:32)
--- NOTE | 2019-06-03 11:19 | P.PN ---
Subjective Progress Note Date: 06/03/19 Follow-up for acute kidney injury. 700 ML's of urine output in the last 24 hours. Family at bedside. Still feeling short of breath and edema. Objective - Vital Signs Vital signs: Vital Signs Temp 97.9 F 06/03/19 03:27 Pulse 72 06/03/19 08:14 Resp 18 06/03/19 03:28 BP 124/67 06/03/19 03:27 Pulse Ox 96 06/03/19 03:27 Intake & Output 06/02/19 06/03/19 06/03/19 18:59 06:59 18:59 Intake Total 720 133.833 325 Output Total 1 675 100 Balance 719 -541.167 225 Weight 87 kg Intake: IV 260 Furosemide 100 mg In 80 Sodium Chloride 0.9% 90 ml @ 15 MG/HR 15 mls/hr IV .Q6H40M [facility] Rx#: [id number] Sodium Chloride 0.9% 1, 80 000 ml @ 10 mls/hr IV . Q24H [facility] Rx#:[id number] Sodium Ferric Gluconat- 100 Sucrose 125 mg In Sodium Chloride 0.9% 100 ml @ 100 mls/hr IVPB DAILY [facility] Rx#:[id number] Intake, IV Titration 100 133.833 95 Amount Furosemide 100 mg In 100 133.833 95 Sodium Chloride 0.9% 90 ml @ 15 MG/HR 15 mls/hr IV .Q6H40M [facility] Rx#: [id number] Oral 360 230 Output: Urine 675 100 Stool 1 Other: Voiding Method Toilet # Voids 0 1 1 # Bowel Movements 1 - Exam No acute distress S1-S2 heard Bilateral decreased breath sounds Edema - Labs CBC & Chem 7: 06/02/19 07:04 06/03/19 05:57 Labs: Abnormal Lab Results - Last 24 Hours (Table) 06/02/19 06/02/19 06/02/19 Range/Units 11:45 17:02 20:12 Sodium (137-145) mmol/L Chloride (98-107) mmol/L BUN (7-17) mg/dL Creatinine (0.52-1.04) mg/dL Glucose (74-99) mg/dL POC Glucose (mg/dL) 208 H 238 H 288 H (75-99) mg/dL Calcium (8.4-10.2) mg/dL 06/03/19 06/03/19 Range/Units 05:57 06:07 Sodium 126 L (137-145) mmol/L Chloride 90 L (98-107) mmol/L BUN 67 H (7-17) mg/dL Creatinine 3.39 H (0.52-1.04) mg/dL Glucose 152 H (74-99) mg/dL POC Glucose (mg/dL) 196 H (75-99) mg/dL Calcium 7.8 L (8.4-10.2) mg/dL Assessment and Plan Assessment: #1 acute kidney injury secondary to cardiorenal syndrome. #2 chronic kidney disease stage IV with a baseline creatinine of 2.5 MG per DL. #3 hyponatremia, suspect hypovolemic #4 volume overload #5 COPD #6 diabetes uncontrolled Plan: #1 renal function worsening. Continue Lasix drip. Stop metolazone for worsening hyponatremia. #2 stop Actos as it has the potential of edema. #3 decrease the dose of hydralazine to 25 mg twice a day, stop amlodipine for worsening edema. Maintain systolic blood pressure 130 to 140. #4 bladder scan to rule out urinary retention #5 off for dialysis has she is refractory volume overload not responding to diuretics but patient refused.
[2019-06-03 11:52] LABS: Glucose,Whole Blood 245 mg/dL (75-99)
[2019-06-03] MEDS: SODIUM CHLORIDE 0.9% 1,000 ML IV SCH (12:36)
[2019-06-03 16:42] LABS: Glucose,Whole Blood 244 mg/dL (75-99)
[2019-06-03] MEDS: BUMETANIDE 10 MG in DEXTROSE 5% IN WATER 60 ML IV SCH ×2 (19:55)
[2019-06-03] MEDS: hydrALAZINE HCL 25 MG TAB PO SCH (19:56)
[2019-06-03 20:26] LABS: Glucose,Whole Blood 237 mg/dL (75-99)
--- NOTE | 2019-06-03 23:16 | P.PN ---
Subjective Progress Note Date: 06/03/19 Principal diagnosis: CHF exacerbation and acute kidney injury Ms. Travis is a 79-year-old female who is a patient of Dr. Sarkar, with a past medical history of hypertension hyperlipidemia osteoarthritis, type 2 diabetes mellitus CKD, diastolic congestive heart failure, moderate aortic stenosis, mild mitral regurgitation, mild tricuspid regurgitation, moderate pulmonary hypertension with right-sided pressure of 55 mmHg coming in with difficulty in breathing, fatigue and exertional dyspnea. Chest x-ray which showed cardiomegaly and probable subsegmental basilar atelectatic changes. Patient was being actively diuresed and transferred to the ICU due to worsening shortness of breath. In the ICU she was continued on diuretics but developed acute kidney injury. Patient also has chronic kidney disease stage III and her creatinine is usually around 1.5-1.7. Patient was just transferred out of the ICU couple of days back. She is being continued on Lasix drip. On 06/03/2019: Patient is lying in bed appears to be mildly dyspneic. She has been complaining of wheezing and difficulty in breathing. Patient denied having any chest pain. She denies having any worsening of her lower extremity swelling. Patient denies having any abdominal pain nausea vomiting or diarrhea. No dysuria or hematuria. On reviewing patient's labs her creatinine has been slowly trending up today it is 3.39. And her sodium dropped from 1 31-1 26. Patient's hemoglobin is stable at 7.3. She is receiving IV iron therapy. Objective - Vital Signs Vital signs: Vital Signs Temp 98.0 F 06/03/19 08:00 Pulse 77 06/03/19 15:51 Resp 18 06/03/19 08:00 BP 126/63 06/03/19 08:00 Pulse Ox 97 06/03/19 08:00 Intake & Output 06/02/19 06/03/19 06/03/19 18:59 06:59 18:59 Intake Total 720 133.833 665 Output Total 1 675 101 Balance 719 -541.167 564 Weight 87 kg Intake: IV 260 Furosemide 100 mg In 80 Sodium Chloride 0.9% 90 ml @ 15 MG/HR 15 mls/hr IV .Q6H40M [facility] Rx#: [id number] Sodium Chloride 0.9% 1, 80 000 ml @ 10 mls/hr IV . Q24H [facility] Rx#:[id number] Sodium Ferric Gluconat- 100 Sucrose 125 mg In Sodium Chloride 0.9% 100 ml @ 100 mls/hr IVPB DAILY [facility] Rx#:[id number] Intake, IV Titration 100 133.833 195 Amount Furosemide 100 mg In 100 133.833 195 Sodium Chloride 0.9% 90 ml @ 15 MG/HR 15 mls/hr IV .Q6H40M [facility] Rx#: [id number] Oral 360 470 Output: Urine 675 100 Stool 1 1 Other: Voiding Method Toilet Toilet # Voids 0 1 1 # Bowel Movements 1 - Exam GEN. APPEARANCE: mild distress HEAD EXAM: atraumatic, normocephalic, normal inspection EYE EXAM: pallor, no icterus ENT EXAM: normal exam, mucous membranes moist RESPIRATORY EXAM: Decreased bilateral air entry. Wheezing in all lung grimes. CARDIOVASCULAR EXAM: regular rate, normal rhythm, normal heart sounds. GI/ABDOMINAL EXAM: soft, normal bowel sounds. Absent: distended, tenderness, guarding, rebound, rigid EXTREMITIES EXAM: bilateral pitting edema NEUROLOGICAL EXAM: alert, oriented X3, no focal deficits PSYCHIATRIC EXAM: normal affect, normal mood SKIN EXAM: no rash - Labs CBC & Chem 7: 06/02/19 07:04 06/03/19 05:57 Labs: Abnormal Lab Results - Last 24 Hours (Table) 06/02/19 06/03/19 06/03/19 Range/Units 20:12 05:57 06:07 Sodium 126 L (137-145) mmol/L Chloride 90 L (98-107) mmol/L BUN 67 H (7-17) mg/dL Creatinine 3.39 H (0.52-1.04) mg/dL Glucose 152 H (74-99) mg/dL POC Glucose (mg/dL) 288 H 196 H (75-99) mg/dL Calcium 7.8 L (8.4-10.2) mg/dL 06/03/19 06/03/19 Range/Units 11:51 16:41 Sodium (137-145) mmol/L Chloride (98-107) mmol/L BUN (7-17) mg/dL Creatinine (0.52-1.04) mg/dL Glucose (74-99) mg/dL POC Glucose (mg/dL) 245 H 244 H (75-99) mg/dL Calcium (8.4-10.2) mg/dL Assessment and Plan Assessment: ASSESSMENT Acute diastolic congestive heart failure exacerbation Acute kidney injury CKD stage III Hyponatremia Moderate aortic stenosis Hypertension Hyperlipidemia Pulmonary hypertension Type 2 diabetes mellitus poorly controlled Mild intermittent asthma History of bowel obstruction requiring surgical repair Obesity with BMI of 35 Anemia-iron deficiency PLAN: Patient is currently on IV Lasix drip but is not responding, as she is still in fluid overload. Nephrology on board and suggested dialysis. But the patient refused dialysis. She wants to talk with her primary care physician Dr. Sarkar before she can take that decision. I discussed another option of starting her on Bumex drip, nephrology agreed with it and patient is being started on a Bumex drip. Overall prognosis is poor due to chronic medical multiple conditions. The treatment plan was discussed in detail with the patient and her daughter in detail at the bedside today.
[2019-06-04] MEDS: BUMETANIDE 10 MG in DEXTROSE 5% IN WATER 60 ML IV SCH ×6 (02:29→21:36)
[2019-06-04 06:11] LABS: Glucose,Whole Blood 218 mg/dL (75-99)
[2019-06-04] MEDS: PANTOPRAZOLE 40 MG TABLET PO SCH (06:14)
[2019-06-04] MEDS: INSULIN ASPART (NovoLOG) 100 UNIT/ML VIAL SQ SCH ×4 (06:14→21:14)
[2019-06-04 08:05] LABS: HCT 22.3 % (34.0-46.0); HGB 7.3 gm/dL (11.4-16.0); MCHC 32.9 g/dL (31.0-37.0); Mean Platelet Volume 7.7; Platelet Count 330 k/uL (150-450); RBC 2.53 m/uL (3.80-5.40); RDW 14.6 % (11.5-15.5); WBC 3.4 k/uL (3.8-10.6)
[2019-06-04] MEDS: BUDESONIDE 0.5 MG/2 ML NEBU INHALATION SCH ×2 (08:05→19:12)
[2019-06-04] MEDS: IPRATROPIUM-ALBUTEROL 3 ML NEB INHALATION SCH ×4 (08:05→19:12)
[2019-06-04 08:11] LABS: Calcium 8.3 mg/dL (8.4-10.2); Potassium 3.6 mmol/L (3.5-5.1)
[2019-06-04] MEDS: SODIUM FERRIC GLUCONAT-SUCROSE 125 MG in SODIUM CHLORIDE 0.9% 100 ML IVPB SCH (08:30)
[2019-06-04] MEDS: hydrALAZINE HCL 25 MG TAB PO SCH ×2 (09:37→21:13)
[2019-06-04] MEDS: ATORVASTATIN 40 MG TAB PO SCH (09:37)
[2019-06-04] MEDS: POTASSIUM CHLORIDE ER 20 MEQ TAB.ER PO SCH (09:37)
[2019-06-04] MEDS: ISOSORBIDE MONONITRATE ER 30 MG TAB.ER.24H PO SCH (09:37)
[2019-06-04] MEDS: ATENOLOL 25 MG TAB PO SCH ×2 (09:37→21:13)
--- NOTE | 2019-06-04 10:48 | P.PN ---
Subjective Progress Note Date: 06/04/19 Patient seen and examined today on the telemetry unit, she was transferred out of the intensive care unit, resting comfortably in bed today, afebrile, continues to be on IV Lasix drip at 15 mg per hour which was increased by nephrology today. Patient continues to have evidence of lower extremity edema and is still somewhat short of breath. Blood pressure 120/60 with a heart rate in the 60s, 94% on 3 L of oxygen. Blood cell count 2.9, hemoglobin 7.3, platelet count 280. Sodium 131, potassium 4.0, BUN 63, creatinine 3.1. 06/03: Patient complains of continued difficulty breathing much worse with ex ertion and states she is only able to get up to the commode chair and is still dyspneic with normal movement. She states she has had no urine output and is very upset about being on a Lasix drip which she states does not help her. Patient is in fact having urine output with 675 out this morning. A chest x-ray reveals heart failure, bibasilar airspace disease may be confluent edema or pneumonia. She is been afebrile, heart rate 72, blood pressure 124/67, pulse ox 96% on 3 L. Magnesium 1.8, sodium 126, potassium 3.7, chloride 90, CO2 22. Renal function is worsening BUN 67 creatinine 3.39. Patient remains on Lasix drip at 15 mg per hour. 06/04: Patient has been seen in follow-up. Patient states that if she could only get her breath she would be doing fine. Patient does not seem to understand the complexity of her problems. She denies having any chest pain. She continues to have lower extremity edema No lightheadedness or dizziness. Patient states it is difficult for her to get onto the commode chair. She has worsening of her renal function with BUN of 69 creatinine 3.74, sodium 128, potassium 3.6, chloride 92, CO2 23. WBC 3.4, hemoglobin 7.3, platelet count 330. Patient has been afebrile, heart rate 84, blood pressure 135/74, pulse ox 94% on 3 L nasal cannula. Urine output 800 MLS in 24 hours. Patient has been transitioned from Lasix drip to Bumex drip by nephrology. Patient states that she does not want to undergo hemodialysis. Patient had a son that was on dialysis and has since passed. Objective - Vital Signs Vital signs: Vital Signs Temp 97.9 F 06/04/19 03:06 Pulse 84 06/04/19 08:25 Resp 16 06/04/19 03:06 BP 135/74 06/04/19 03:06 Pulse Ox 93 L 06/04/19 08:07 Intake & Output 06/03/19 06/04/19 06/04/19 18:59 06:59 18:59 Intake Total 905 65.667 100 Output Total 503 300 Balance 402 -234.333 100 Weight 89.8 kg Intake: Intake, IV Titration 195 65.667 Amount Bumetanide 10 mg In 65.667 Dextrose 5% in Water 60 ml @ 1 MG/HR 10 mls/hr IV .Q10H [facility] Rx#:[id number] Furosemide 100 mg In 195 Sodium Chloride 0.9% 90 ml @ 15 MG/HR 15 mls/hr IV .Q6H40M [facility] Rx#: [id number] Oral 710 100 Output: Urine 500 300 Stool 3 Other: Voiding Method Toilet Toilet # Voids 1 1 # Bowel Movements 1 - Exam GENERAL EXAM: Alert, pleasant, 79-year-old female, no acute distress at the time of my examination . HEAD: Normocephalic/atraumatic. EYES: Normal reaction of pupils, equal size. Conjunctiva pink, sclera white. NOSE: Clear with pink turbinates. NECK: No masses, no JVD, no thyroid enlargement, no adenopathy. LUNGS: Diminished air entry with bilateral end expiratory wheezes and scattered crackles CVS: Regular rate and rhythm, normal S1 and S2, no gallops, systolic murmur loudest at the right sternal border, no rubs ABDOMEN: Soft, nontender. No hepatosplenomegaly, normal bowel sounds, no guarding or rigidity. EXTREMITIES: No clubbing, 1+lower extremity edema no cyanosis, 2+ pulses and u pper and lower extremities. MUSCULOSKELETAL: Muscle strength and tone normal. SPINE: No scoliosis or deformity SKIN: No rashes CENTRAL NERVOUS SYSTEM: Alert and oriented x3. No focal deficits. PSYCHIATRIC: Appropriate affect. Intact judgment and insight. - Labs CBC & Chem 7: 06/04/19 07:47 06/04/19 07:47 Labs: Abnormal Lab Results - Last 24 Hours (Table) 06/03/19 06/03/19 06/03/19 Range/Units 11:51 16:41 20:25 WBC (3.8-10.6) k/uL RBC (3.80-5.40) m/uL Hgb (11.4-16.0) gm/dL Hct (34.0-46.0) % Sodium (137-145) mmol/L Chloride (98-107) mmol/L BUN (7-17) mg/dL Creatinine (0.52-1.04) mg/dL Glucose (74-99) mg/dL POC Glucose (mg/dL) 245 H 244 H 237 H (75-99) mg/dL Calcium (8.4-10.2) mg/dL 06/04/19 06/04/19 06/04/19 Range/Units 06:10 07:47 07:47 WBC 3.4 L (3.8-10.6) k/uL RBC 2.53 L (3.80-5.40) m/uL Hgb 7.3 L (11.4-16.0) gm/dL Hct 22.3 L (34.0-46.0) % Sodium 128 L (137-145) mmol/L Chloride 92 L (98-107) mmol/L BUN 69 H (7-17) mg/dL Creatinine 3.74 H (0.52-1.04) mg/dL Glucose 144 H (74-99) mg/dL POC Glucose (mg/dL) 218 H (75-99) mg/dL Calcium 8.3 L (8.4-10.2) mg/dL Assessment and Plan Plan: #1. Acute dyspnea related to acute exacerbation of diastolic heart failure #2. Recent hospitalization for acute tracheobronchitis #3. Probable underlying bronchial asthma, however patient has not been followi ng up in the outpatient clinic for outpatient PFT #4. Moderate aortic stenosis #5. Chronic congestive heart failure with diastolic dysfunction and EF of 60- 65% #6. Diabetes mellitus type 2, poorly controlled #7. Acute kidney injury with Chronic kidney disease stage IV #8. Lifetime nonsmoker #9. History of diverticulitis #10. History of bowel obstruction with surgical repair #11. Hypertension #12. Hyperlipidemia #13. Lower extremity edema related to cor pulmonale Plan From cardiology's perspective, we will continue IV Bumex drip as per nephrology. Actos and amlodipine were discontinued due to potential for edema Hydralazine decreased to 25 mg twice a day Continue to monitor the intake and output along with daily weights and daily, lytes BUN and creatinine. Bladder scan ordered by nephrology to rule out urinary retention. DNP note has been reviewed, I agree with a documented findings and plan of care. Patient was seen and examined.
--- NOTE | 2019-06-04 11:03 | P.PN ---
Subjective Progress Note Date: 06/04/19 Follow-up for acute kidney injury. 800 ML's of urine output in the last 24 hours. Family at bedside. Still feeling short of breath and edema. Objective - Vital Signs Vital signs: Vital Signs Temp 97.9 F 06/04/19 03:06 Pulse 84 06/04/19 08:25 Resp 16 06/04/19 03:06 BP 135/74 06/04/19 03:06 Pulse Ox 93 L 06/04/19 08:07 Intake & Output 06/03/19 06/04/19 06/04/19 18:59 06:59 18:59 Intake Total 905 65.667 100 Output Total 503 300 Balance 402 -234.333 100 Weight 89.8 kg Intake: Intake, IV Titration 195 65.667 Amount Bumetanide 10 mg In 65.667 Dextrose 5% in Water 60 ml @ 1 MG/HR 10 mls/hr IV .Q10H [facility] Rx#:[id number] Furosemide 100 mg In 195 Sodium Chloride 0.9% 90 ml @ 15 MG/HR 15 mls/hr IV .Q6H40M [facility] Rx#: [id number] Oral 710 100 Output: Urine 500 300 Stool 3 Other: Voiding Method Toilet Toilet # Voids 1 1 # Bowel Movements 1 - Exam No acute distress S1-S2 heard Bilateral decreased breath sounds Edema - Labs CBC & Chem 7: 06/04/19 07:47 06/04/19 07:47 Labs: Abnormal Lab Results - Last 24 Hours (Table) 06/03/19 06/03/19 06/03/19 Range/Units 11:51 16:41 20:25 WBC (3.8-10.6) k/uL RBC (3.80-5.40) m/uL Hgb (11.4-16.0) gm/dL Hct (34.0-46.0) % Sodium (137-145) mmol/L Chloride (98-107) mmol/L BUN (7-17) mg/dL Creatinine (0.52-1.04) mg/dL Glucose (74-99) mg/dL POC Glucose (mg/dL) 245 H 244 H 237 H (75-99) mg/dL Calcium (8.4-10.2) mg/dL 06/04/19 06/04/19 06/04/19 Range/Units 06:10 07:47 07:47 WBC 3.4 L (3.8-10.6) k/uL RBC 2.53 L (3.80-5.40) m/uL Hgb 7.3 L (11.4-16.0) gm/dL Hct 22.3 L (34.0-46.0) % Sodium 128 L (137-145) mmol/L Chloride 92 L (98-107) mmol/L BUN 69 H (7-17) mg/dL Creatinine 3.74 H (0.52-1.04) mg/dL Glucose 144 H (74-99) mg/dL POC Glucose (mg/dL) 218 H (75-99) mg/dL Calcium 8.3 L (8.4-10.2) mg/dL Assessment and Plan Assessment: #1 acute kidney injury secondary to cardiorenal syndrome. #2 chronic kidney disease stage IV with a baseline creatinine of 2.5 MG per DL. #3 hyponatremia, suspect hypervolemic #4 volume overload #5 COPD #6 diabetes uncontrolled Plan: #1 renal function worsening. Lasix drip was changed to Bumex yesterday for better response, but no gross change. #2 continue with hydralazine, goal systolic 130 to 140. #3 refused bladder scan yesterday. #4 patient was offered dialysis for refractory volume overload to diuretics and worsening kidney function. Patient doesn't want dialysis at this time.
[2019-06-04 12:20] LABS: Glucose,Whole Blood 207 mg/dL (75-99)
[2019-06-04 17:13] LABS: Glucose,Whole Blood 309 mg/dL (75-99)
[2019-06-04] MEDS: SODIUM CHLORIDE 0.9% 1,000 ML IV SCH (18:22)
[2019-06-04] MEDS: methylPREDNISolone SOD SUCCI 125 MG/2 ML VIAL IV SCH ×2 (18:24→23:18)
[2019-06-04 20:05] LABS: Glucose,Whole Blood 272 mg/dL (75-99)
[2019-06-05] MEDS: ACETAMINOPHEN TAB 325 MG TAB PO PRN (02:50)
[2019-06-05] MEDS: BUMETANIDE 10 MG in DEXTROSE 5% IN WATER 60 ML IV SCH ×6 (03:23→16:01)
[2019-06-05 06:09] LABS: Glucose,Whole Blood 302 mg/dL (75-99)
[2019-06-05] MEDS: methylPREDNISolone SOD SUCCI 125 MG/2 ML VIAL IV SCH ×3 (06:32→23:35)
[2019-06-05] MEDS: INSULIN ASPART (NovoLOG) 100 UNIT/ML VIAL SQ SCH ×6 (06:33→21:05)
[2019-06-05] MEDS: PANTOPRAZOLE 40 MG TABLET PO SCH (06:33)
[2019-06-05] MEDS: BUDESONIDE 0.5 MG/2 ML NEBU INHALATION SCH ×2 (09:12→19:55)
[2019-06-05] MEDS: IPRATROPIUM-ALBUTEROL 3 ML NEB INHALATION SCH ×4 (09:12→19:55)
[2019-06-05] MEDS: hydrALAZINE HCL 25 MG TAB PO SCH ×2 (09:42→21:05)
[2019-06-05] MEDS: POTASSIUM CHLORIDE ER 20 MEQ TAB.ER PO SCH (09:42)
[2019-06-05] MEDS: ATENOLOL 25 MG TAB PO SCH ×2 (09:42→21:05)
[2019-06-05] MEDS: ATORVASTATIN 40 MG TAB PO SCH (09:42)
[2019-06-05 09:44] LABS: Calcium 8.1 mg/dL (8.4-10.2)
[2019-06-05] MEDS: SODIUM CHLORIDE 0.9% 1,000 ML IV SCH ×2 (10:18→18:10)
[2019-06-05 11:51] LABS: Glucose,Whole Blood 383 mg/dL (75-99)
[2019-06-05] MEDS ORDERED: INSULIN ASPART (NovoLOG) 100 UNIT/ML VIAL SQ ONE (12:01)
[2019-06-05] MEDS: ISOSORBIDE MONONITRATE ER 30 MG TAB.ER.24H PO SCH (12:19)
[2019-06-05] MEDS: INSULIN DETEMIR (LEVEMIR) 100 UNIT/ML SYR SQ SCH (12:29)
--- NOTE | 2019-06-05 14:46 | P.PN ---
Subjective Progress Note Date: 06/05/19 Patient seen and examined today on the telemetry unit, she was transferred out of the intensive care unit, resting comfortably in bed today, afebrile, continues to be on IV Lasix drip at 15 mg per hour which was increased by nephrology today. Patient continues to have evidence of lower extremity edema and is still somewhat short of breath. Blood pressure 120/60 with a heart rate in the 60s, 94% on 3 L of oxygen. Blood cell count 2.9, hemoglobin 7.3, platelet count 280. Sodium 131, potassium 4.0, BUN 63, creatinine 3.1. 06/05/2019 Patient seen and examined this morning, continues to have bilateral lower extremity edema, mild shortness of breath, denies any chest discomfort. I pressure 127/70 with a heart rate in the 70s, 93% on 3 L of oxygen. Sodium today is down to 123, BUN 77, creatinine 3.9. Objective - Vital Signs Vital signs: Vital Signs Temp 97.8 F 06/05/19 11:57 Pulse 88 06/05/19 13:15 Resp 20 06/05/19 11:57 BP 127/73 06/05/19 11:57 Pulse Ox 93 L 06/05/19 11:57 Intake & Output 06/04/19 06/05/19 06/05/19 18:59 06:59 18:59 Intake Total 400 338.833 640 Output Total 1053 300 Balance -653 338.833 340 Weight 89.9 kg Intake: IV 120 Bumetanide 10 mg In 80 Dextrose 5% in Water 60 ml @ 1 MG/HR 10 mls/hr IV .Q10H [facility] Rx#:[id number] Sodium Chloride 0.9% 1, 40 000 ml @ 10 mls/hr IV . Q24H [facility] Rx#:[id number] Intake, IV Titration 100 98.833 100 Amount Bumetanide 10 mg In 100 98.833 100 Dextrose 5% in Water 60 ml @ 1 MG/HR 10 mls/hr IV .Q10H [facility] Rx#:[id number] Oral 300 240 420 Output: Urine 1050 300 Stool 3 Other: Voiding Method Bedside Commode Bedside Commode # Voids 1 - Exam GENERAL EXAM: Alert, pleasant, 79-year-old white female, no acute distress at the time of my examination . HEAD: Normocephalic/atraumatic. EYES: Normal reaction of pupils, equal size. Conjunctiva pink, sclera white. NOSE: Clear with pink turbinates. THROAT: No erythema or exudates. NECK: No masses, no JVD, no thyroid enlargement, no adenopathy. CHEST: No chest wall deformity. Symmetrical expansion. LUNGS: Diminished air entry with end expiratory wheezes CVS: Regular rate and rhythm, normal S1 and S2, no gallops, systolic murmur loudest at the right sternal border, no rubs ABDOMEN: Soft, nontender. No hepatosplenomegaly, normal bowel sounds, no guarding or rigidity. EXTREMITIES: No clubbing, 1+lower extremity edema no cyanosis, 2+ pulses and upper and lower extremities. MUSCULOSKELETAL: Muscle strength and tone normal. SPINE: No scoliosis or deformity SKIN: No rashes CENTRAL NERVOUS SYSTEM: Alert and oriented -3. No focal deficits, tone is normal in all 4 extremities. PSYCHIATRIC: Alert and oriented -3. Appropriate affect. Intact judgment and insight. - Labs CBC & Chem 7: 06/04/19 07:47 06/05/19 09:00 Labs: Abnormal Lab Results - Last 24 Hours (Table) 06/04/19 06/04/19 06/05/19 Range/Units 17:01 20:03 06:08 Sodium (137-145) mmol/L Chloride (98-107) mmol/L Carbon Dioxide (22-30) mmol/L BUN (7-17) mg/dL Creatinine (0.52-1.04) mg/dL Glucose (74-99) mg/dL POC Glucose (mg/dL) 309 H 272 H 302 H (75-99) mg/dL Calcium (8.4-10.2) mg/dL 06/05/19 06/05/19 Range/Units 09:00 11:48 Sodium 123 L (137-145) mmol/L Chloride 89 L (98-107) mmol/L Carbon Dioxide 20 L (22-30) mmol/L BUN 77 H (7-17) mg/dL Creatinine 3.98 H (0.52-1.04) mg/dL Glucose 309 H (74-99) mg/dL POC Glucose (mg/dL) 383 H (75-99) mg/dL Calcium 8.1 L (8.4-10.2) mg/dL Assessment and Plan Plan: Assessment and plan: #1. Acute dyspnea related to acute exacerbation of diastolic congestive heart failure #2. Recent hospitalization for acute tracheobronchitis #3. Probable underlying bronchial asthma, however patient has not been following up in the outpatient clinic for outpatient PFT #4. Moderate aortic stenosis #5. Chronic congestive heart failure with diastolic dysfunction and EF of 60- 65% #6. Diabetes mellitus type 2, poorly controlled #7. Chronic kidney disease stage III #8. Lifetime nonsmoker #9. History of diverticulitis #10. History of bowel obstruction with surgical repair #11. Hypertension #12. Hyperlipidemia #13. Lower extremity edema related to cor pulmonale Plan From cardiology's perspective, we will continue IV Bumex drip as per nephrology. Continue to monitor the intake and output along with daily weights and daily lytes BUN and creatinine. DNP note has been reviewed, I agree with a documented findings and plan of care. Patient was seen and examined.
[2019-06-05] MEDS ORDERED: TOLVAPTAN 15 MG 1/2 TABLET PO ONE (15:18)
[2019-06-05 15:23] VITALS: BMI 36.2
--- NOTE | 2019-06-05 16:10 | PN ---
PROGRESS NOTE Patient is seen for followup for acute kidney injury and volume overload. Her renal function has worsened, with serum creatinine up to 3.9 from 3.7 yesterday. The patient is currently maintained on a Bumex drip. She has been talked to regarding starting dialysis, given the persistent volume overload and worsening renal function. The patient states that she would like to wait another day and is agreeable to start dialysis if her renal function is again worse tomorrow. She is currently maintained on a Bumex drip at 1 mg/hour. PHYSICAL EXAMINATION: On examination today, blood pressure was 127/73, heart rate 77 per minute. She is afebrile. EXAMINATION OF THE HEART: S1 and S2. EXAMINATION OF LUNGS: Bilateral breath sounds are heard. Decreased breath sounds at bases. Occasional wheezing is heard bilaterally. ABDOMEN: Soft, obese, non-tender. Examination of lower extremities shows edema 2+ bilaterally. DIRECTOR ORANGE exam is grossly intact. LABS: Sodium 123, potassium 4.0, chloride 89. CO2 is 20, BUN 77, creatinine 3.9. ASSESSMENT: 1. Acute kidney injury, cardiorenal, with worsening renal function and persistent volume overload. Patient states that she is agreeable to start dialysis if her renal function is again worse by tomorrow. In the meantime, I will increase the Bumex to 2 mg/hour. 2. Chronic kidney disease, stage IV; baseline creatinine about 2.5 mg/dL. 3. Hyponatremia, hypervolemic. Continue to diurese patient. I will give her a dose of tolvaptan as well. 4. Chronic obstructive pulmonary disease exacerbation, maintained on IV steroids. 5. Diabetes, uncontrolled, secondary to steroids. PLAN: Increase Bumex drip to 2 mg/hour. Repeat labs in a.m. Start dialysis if renal function is worse tomorrow. Tolvaptan x1 for hyponatremia. MMODL / IJN: [id number] /
[2019-06-05 16:35] LABS: Glucose,Whole Blood 371 mg/dL (75-99)
--- NOTE | 2019-06-05 17:20 | P.PN ---
Subjective Progress Note Date: 06/05/19 This is a 79-year-old female admitted with acute diastolic CHF exacerbation, tracheobronchitis and multiple other medical issues. Diuresing well on Lasix IV push with 24-hour I&O reflecting a negative fluid balance. Renal function mildly worsened, creatinine 2.59. Feels better today, less shortness of breath. Denies chest pain or palpitations. 05/26/2019 diuresing well on Lasix IV push with 24-hour I&O reflecting a negative fluid balance. Breathing continues to improve. Creatinine maintaining at 2.52. Hemoglobin 8.1. Vital signs stable, maintaining O2 sats in the 90s on 2 L nasal cannula, 89% on room air. Complains of decreased appetite, nausea, no emesis. Denies chest pain, palpitations or worsening shortness of breath. 06/05/2019 maintained on Bumex drip, diuresing well with 24-hour I&O reflecting a negative fluid balance. sodium trending down, 123 with worsening renal funct ion,creatinine up to 3.98. Evaluated by nephrology, hemodialysis recommended,patient initially declining-now considering.blood sugars uncontrolled on IV steroids up to 383.afebrile, vital signs stable, maintaining O2 sats in the low 90s on 3 L nasal cannula.complains of shortness of breath and edema. Objective - Vital Signs Vital signs: Vital Signs Temp 97.8 F 06/05/19 11:57 Pulse 77 06/05/19 11:57 Resp 20 06/05/19 11:57 BP 127/73 06/05/19 11:57 Pulse Ox 93 L 06/05/19 11:57 Intake & Output 06/04/19 06/05/19 06/05/19 18:59 06:59 18:59 Intake Total 400 338.833 360 Output Total 1053 300 Balance -653 338.833 60 Weight 89.9 kg Intake: IV 120 Bumetanide 10 mg In 80 Dextrose 5% in Water 60 ml @ 1 MG/HR 10 mls/hr IV .Q10H [facility] Rx#:[id number] Sodium Chloride 0.9% 1, 40 000 ml @ 10 mls/hr IV . Q24H [facility] Rx#:[id number] Intake, IV Titration 100 98.833 Amount Bumetanide 10 mg In 100 98.833 Dextrose 5% in Water 60 ml @ 1 MG/HR 10 mls/hr IV .Q10H [facility] Rx#:[id number] Oral 300 240 240 Output: Urine 1050 300 Stool 3 Other: Voiding Method Bedside Commode Bedside Commode # Voids 1 - Exam PHYSICAL EXAM: VITAL SIGNS: As above GENERAL: Sitting up in bed, no acute distress HEENT: Conjunctivae normal. eyes normal. Oral mucosa moist NECK: No JVD. No thyroid enlargement. No LNs CARDIOVASCULAR: S1, S2 regular. Systolic murmur RESPIRATION: Breath sounds diminished in the bases. scattered crackles with fine expiratory wheezing. ABDOMEN: Soft, nontender . No guarding. no masses palpable. No ascites, No hepatosplenomegaly.Bowel sounds heard. LEGS: positive edema, 2+ pulses.no cyanosis. PSYCHIATRY: Alert and oriented X3, mood and affect normal. NERVOUS SYSTEM: Cranial N 2-12 grossly normal. Moves all 4 limbs. No focal deficits. Strength and sensation grossly intact.. Skin: no rash - Labs CBC & Chem 7: 06/04/19 07:47 06/05/19 09:00 Labs: Abnormal Lab Results - Last 24 Hours (Table) 06/04/19 06/04/19 06/04/19 Range/Units 12:04 17:01 20:03 Sodium (137-145) mmol/L Chloride (98-107) mmol/L Carbon Dioxide (22-30) mmol/L BUN (7-17) mg/dL Creatinine (0.52-1.04) mg/dL Glucose (74-99) mg/dL POC Glucose (mg/dL) 207 H 309 H 272 H (75-99) mg/dL Calcium (8.4-10.2) mg/dL 06/05/19 06/05/19 06/05/19 Range/Units 06:08 09:00 11:48 Sodium 123 L (137-145) mmol/L Chloride 89 L (98-107) mmol/L Carbon Dioxide 20 L (22-30) mmol/L BUN 77 H (7-17) mg/dL Creatinine 3.98 H (0.52-1.04) mg/dL Glucose 309 H (74-99) mg/dL POC Glucose (mg/dL) 302 H 383 H (75-99) mg/dL Calcium 8.1 L (8.4-10.2) mg/dL Assessment and Plan Assessment: Acute on chronic CHF exacerbation, diastolic dysfunction,EF 60-65% Acute on chronic renal failure, stage IV,secondary to cardiorenal syndrome. Baseline 2.5. Elevated troponin secondary to chronic renal failure, not suggestive of cardiac event as per cardiology Recently hospitalized for Acute tracheobronchitis Diabetes mellitus,uncontrolled, hyperglycemia, steroid-induced Hypertension Dyslipidemia moderate aortic stenosis Mild to Moderate aortic stenosis Severe pulmonary hypertension Ongoing nicotine dependence hyponatremia, hypervolemic,fluid volume overload. Plan:Continue on current medication regime ,monitoring and symptomatic treatme nt. maintained on IV Bumex drip as per nephrology.as mentioned above patient now considering hemodialysis as recommended per nephrology. antihypertensives adjusted as per cardiology yesterday.long-acting insulin added to med regime along with pre-meal insulin with parameters.patient refusing bladder scan.Close monitoring of renal function with repeat labs ordered for a.m.prognosis guarded given multiple complex medical issues. The impression and plan of care has been dictated as directed. : I performed a history and examination of this patient, discussed the same with the dictator. I agree with the dictator's note ,documented as a scribe. Any additional findings or plans will be noted.
[2019-06-05 20:59] LABS: Glucose,Whole Blood 375 mg/dL (75-99)
[2019-06-05] MEDS: BENZONATATE 100 MG CAP PO PRN (21:05)
--- NOTE | 2019-06-05 22:32 | P.PN ---
Subjective Progress Note Date: 06/04/19 Principal diagnosis: CHF exacerbation and acute kidney injury Ms. Travis is a 79-year-old female who is a patient of Dr. Sarkar, with a past medical history of hypertension hyperlipidemia osteoarthritis, type 2 diabetes mellitus CKD, diastolic congestive heart failure, moderate aortic stenosis, mild mitral regurgitation, mild tricuspid regurgitation, moderate pulmonary hypertension with right-sided pressure of 55 mmHg coming in with difficulty in breathing, fatigue and exertional dyspnea. Chest x-ray which showed cardiomegaly and probable subsegmental basilar atelectatic changes. Patient was being actively diuresed and transferred to the ICU due to worsening shortness of breath. In the ICU she was continued on diuretics but developed acute kidney injury. Patient also has chronic kidney disease stage III and her creatinine is usually around 1.5-1.7. Patient was just transferred out of the ICU couple of days back. She is being continued on Lasix drip. On 06/03/2019: Patient is lying in bed appears to be mildly dyspneic. She has been complaining of wheezing and difficulty in breathing. Patient denied having any chest pain. She denies having any worsening of her lower extremity swelling. Patient denies having any abdominal pain nausea vomiting or diarrhea. No dysuria or hematuria. On reviewing patient's labs her creatinine has been slowly trending up today it is 3.39. And her sodium dropped from 1 31-1 26. Patient's hemoglobin is stable at 7.3. She is receiving IV iron therapy. On 06/04/2019 : Patient is lying in bed appears to be having mild difficulty in breathing. Patient's IV Lasix drip is changed to IV Bumex drip yesterday. On reviewing her labs patient's sodium is trending down it is 128 and her creatin ine has been creeping up to 3.74. Nephrology on board and suggesting that the patient be on dialysis but she is been refusing. Objective - Vital Signs Vital signs: Vital Signs Temp 97.2 F L 06/04/19 12:00 Pulse 82 06/04/19 16:01 Resp 22 06/04/19 16:00 BP 121/60 06/04/19 12:00 Pulse Ox 91 L 06/04/19 12:00 Intake & Output 06/03/19 06/04/19 06/04/19 18:59 06:59 18:59 Intake Total 905 65.667 100 Output Total 503 300 753 Balance 402 -234.333 -653 Weight 89.8 kg Intake: Intake, IV Titration 195 65.667 Amount Bumetanide 10 mg In 65.667 Dextrose 5% in Water 60 ml @ 1 MG/HR 10 mls/hr IV .Q10H [facility] Rx#:[id number] Furosemide 100 mg In 195 Sodium Chloride 0.9% 90 ml @ 15 MG/HR 15 mls/hr IV .Q6H40M [facility] Rx#: [id number] Oral 710 100 Output: Urine 500 300 750 Stool 3 3 Other: Voiding Method Toilet Toilet Bedside Commode # Voids 1 1 1 # Bowel Movements 1 - Exam GEN. APPEARANCE: mild distress HEAD EXAM: atraumatic, normocephalic, normal inspection EYE EXAM: pallor, no icterus ENT EXAM: normal exam, mucous membranes moist RESPIRATORY EXAM: Decreased bilateral air entry. Wheezing in all lung grimes. CARDIOVASCULAR EXAM: regular rate, normal rhythm, normal heart sounds. GI/ABDOMINAL EXAM: soft, normal bowel sounds. Absent: distended, tenderness, guarding, rebound, rigid EXTREMITIES EXAM: bilateral pitting edema NEUROLOGICAL EXAM: alert, oriented X3, no focal deficits - Labs CBC & Chem 7: 06/04/19 07:47 06/05/19 09:00 Labs: Abnormal Lab Results - Last 24 Hours (Table) 06/03/19 06/04/19 06/04/19 Range/Units 20:25 06:10 07:47 WBC 3.4 L (3.8-10.6) k/uL RBC 2.53 L (3.80-5.40) m/uL Hgb 7.3 L (11.4-16.0) gm/dL Hct 22.3 L (34.0-46.0) % Sodium (137-145) mmol/L Chloride (98-107) mmol/L BUN (7-17) mg/dL Creatinine (0.52-1.04) mg/dL Glucose (74-99) mg/dL POC Glucose (mg/dL) 237 H 218 H (75-99) mg/dL Calcium (8.4-10.2) mg/dL 06/04/19 06/04/19 Range/Units 07:47 12:04 WBC (3.8-10.6) k/uL RBC (3.80-5.40) m/uL Hgb (11.4-16.0) gm/dL Hct (34.0-46.0) % Sodium 128 L (137-145) mmol/L Chloride 92 L (98-107) mmol/L BUN 69 H (7-17) mg/dL Creatinine 3.74 H (0.52-1.04) mg/dL Glucose 144 H (74-99) mg/dL POC Glucose (mg/dL) 207 H (75-99) mg/dL Calcium 8.3 L (8.4-10.2) mg/dL Assessment and Plan Assessment: ASSESSMENT Acute diastolic congestive heart failure exacerbation Acute kidney injury CKD stage III Hyponatremia Moderate aortic stenosis Hypertension Hyperlipidemia Pulmonary hypertension Type 2 diabetes mellitus poorly controlled Mild intermittent asthma History of bowel obstruction requiring surgical repair Obesity with BMI of 35 Anemia-iron deficiency PLAN: Patient's IV Lasix drip has been changed to IV Bumex drip. She seems to be responding a little better to Bumex but still in fluid overload. Nephrology suggesting dialysis but patient has been refusing it. She wants to discuss with her primary care physician Dr. Sarkar in order to take a decision regarding dialysis. She mentions that her son was on dialysis and passed after 1 year of being on dialysis and that she is concerned about it. Overall prognosis is poor due to multiple chronic medical conditions. We will continue with current treatment plan. Dr. Sarkar to follow the patient from tomorrow.
[2019-06-05] MEDS: methylPREDNISolone SOD SUCCI 40 MG/ML 1 ML VIAL IV SCH (22:51)
[2019-06-06 02:48] LABS: Hepatitis B Surface Antibody Non-Reactive (Non-Reactive); Hepatitis B Surface Antigen Non-Reactive (Non-Reactive)
[2019-06-06] MEDS: SODIUM CHLORIDE 0.9% 1,000 ML IV SCH (04:23)
[2019-06-06] MEDS: PANTOPRAZOLE 40 MG TABLET PO SCH (05:56)
[2019-06-06 06:38] LABS: Glucose,Whole Blood 340 mg/dL (75-99)
[2019-06-06 06:47] LABS: Basophils % (A) 0 %; Eosinophils % (A) 0 %; HCT 24.9 % (34.0-46.0); Lymphocytes # (A) 0.7 k/uL (1.0-4.8); Lymphocytes % (A) 9 %; MCH 28.4 pg (25.0-35.0); MCHC 32.2 g/dL (31.0-37.0); MCV 88.1 fL (80.0-100.0); Mean Platelet Volume 8.1; Monocytes # (A) 0.2 k/uL (0-1.0); Monocytes % (A) 3 %; Neutrophils # (A) 6.3 k/uL (1.3-7.7); Neutrophils % (A) 87 %; Platelet Count 535 k/uL (150-450); RBC 2.83 m/uL (3.80-5.40); RDW 14.6 % (11.5-15.5); WBC 7.3 k/uL (3.8-10.6)
[2019-06-06] MEDS: INSULIN DETEMIR (LEVEMIR) 100 UNIT/ML SYR SQ SCH ×2 (06:59→09:45)
[2019-06-06] MEDS: INSULIN ASPART (NovoLOG) 100 UNIT/ML VIAL SQ SCH ×7 (06:59→21:09)
[2019-06-06 07:06] LABS: Albumin 3.4 g/dL (3.5-5.0); Calcium 8.5 mg/dL (8.4-10.2); Potassium 4.8 mmol/L (3.5-5.1); Total Bilirubin 0.4 mg/dL (0.2-1.3); Total Protein 5.8 g/dL (6.3-8.2)
[2019-06-06] MEDS: IPRATROPIUM-ALBUTEROL 3 ML NEB INHALATION SCH ×4 (07:34→20:09)
[2019-06-06] MEDS: BUDESONIDE 0.5 MG/2 ML NEBU INHALATION SCH ×2 (07:34→20:08)
[2019-06-06] MEDS ORDERED: INSULIN DETEMIR (LEVEMIR) 100 UNIT/ML SYR SQ ONE (09:09)
[2019-06-06] MEDS: ATORVASTATIN 40 MG TAB PO SCH (09:25)
[2019-06-06] MEDS: ATENOLOL 25 MG TAB PO SCH ×2 (09:25→21:07)
[2019-06-06] MEDS: methylPREDNISolone SOD SUCCI 40 MG/ML 1 ML VIAL IV SCH ×3 (09:25→23:16)
--- NOTE | 2019-06-06 10:03 | P.PN ---
Subjective Progress Note Date: 06/06/19 This is a 79-year-old female admitted with acute diastolic CHF exacerbation, tracheobronchitis and multiple other medical issues. Diuresing well on Lasix IV push with 24-hour I&O reflecting a negative fluid balance. Renal function mildly worsened, creatinine 2.59. Feels better today, less shortness of breath. Denies chest pain or palpitations. 05/26/2019 diuresing well on Lasix IV push with 24-hour I&O reflecting a negative fluid balance. Breathing continues to improve. Creatinine maintaining at 2.52. Hemoglobin 8.1. Vital signs stable, maintaining O2 sats in the 90s on 2 L nasal cannula, 89% on room air. Complains of decreased appetite, nausea, no emesis. Denies chest pain, palpitations or worsening shortness of breath. 06/05/2019 maintained on Bumex drip, diuresing well with 24-hour I&O reflecting a negative fluid balance. sodium trending down, 123 with worsening renal funct ion,creatinine up to 3.98. Evaluated by nephrology, hemodialysis recommended,patient initially declining-now considering.blood sugars uncontrolled on IV steroids up to 383.afebrile, vital signs stable, maintaining O2 sats in the low 90s on 3 L nasal cannula.complains of shortness of breath and edema. 06/06/2019 Bumex drip discontinued last night, fluids initiated at 75 MLS per hour. Marginal urine output overnight approximately to 240 mL. nonproductive cough .complains of exertional shortness of breath .hemoglobin 8. Maintaining O2 sats in the mid 90s on 3 L nasal cannula. chest x-ray ordered, pending. Creatinine continues to worsen, 4.46. Sodium remains at 123. Hyperglycemic. Objective - Vital Signs Vital signs: Vital Signs Temp 97.4 F L 06/06/19 08:00 Pulse 76 06/06/19 08:00 Resp 10 L 06/06/19 08:00 BP 118/59 06/06/19 08:00 Pulse Ox 95 06/06/19 08:00 Intake & Output 06/05/19 06/06/19 06/06/19 18:59 06:59 18:59 Intake Total 903 525 360 Output Total 300 250 Balance 603 275 360 Weight 89.9 kg 91.4 kg Intake: IV 120 Bumetanide 10 mg In 80 Dextrose 5% in Water 60 ml @ 2 MG/HR 20 mls/hr IV .Q5H [facility] Rx#:[id number] Sodium Chloride 0.9% 1, 40 000 ml @ 5 mls/hr IV . Q24H [facility] Rx#:[id number] Intake, IV Titration 123 525 Amount Bumetanide 10 mg In 123 Dextrose 5% in Water 60 ml @ 2 MG/HR 20 mls/hr IV .Q5H [facility] Rx#:[id number] Sodium Chloride 0.9% 1, 525 000 ml @ 75 mls/hr IV . [id number] [facility] Rx#:[id number] Oral 660 360 Output: Urine 300 250 Other: Voiding Method Bedside Commode Bedside Commode # Bowel Movements 1 1 - Exam PHYSICAL EXAM: VITAL SIGNS: As above GENERAL: Sitting up in bed, no acute distress HEENT: Conjunctivae normal. eyes normal. Oral mucosa moist NECK: No JVD. No thyroid enlargement. No LNs CARDIOVASCULAR: S1, S2 regular. Systolic murmur RESPIRATION: Breath sounds diminished in the bases. scattered crackles with fine expiratory wheezing. ABDOMEN: Soft, nontender . No guarding. no masses palpable. No ascites, No hepatosplenomegaly.Bowel sounds heard. LEGS: positive edema, 2+ pulses.no cyanosis. PSYCHIATRY: Alert and oriented X3, mood and affect normal. NERVOUS SYSTEM: Cranial N 2-12 grossly normal. Moves all 4 limbs. No focal deficits. Strength and sensation grossly intact.. Skin: no rash - Labs CBC & Chem 7: 06/06/19 05:54 06/06/19 05:54 Labs: Abnormal Lab Results - Last 24 Hours (Table) 06/05/19 06/05/19 06/05/19 Range/Units 09:00 11:48 16:31 RBC (3.80-5.40) m/uL Hgb (11.4-16.0) gm/dL Hct (34.0-46.0) % Plt Count (150-450) k/uL Lymphocytes # (1.0-4.8) k/uL Sodium 123 L (137-145) mmol/L Chloride 89 L (98-107) mmol/L Carbon Dioxide 20 L (22-30) mmol/L BUN 77 H (7-17) mg/dL Creatinine 3.98 H (0.52-1.04) mg/dL Glucose 309 H (74-99) mg/dL POC Glucose (mg/dL) 383 H 371 H (75-99) mg/dL Calcium 8.1 L (8.4-10.2) mg/dL Total Protein (6.3-8.2) g/dL Albumin (3.5-5.0) g/dL 06/05/19 06/06/19 06/06/19 Range/Units 20:49 05:54 05:54 RBC 2.83 L (3.80-5.40) m/uL Hgb 8.0 L (11.4-16.0) gm/dL Hct 24.9 L (34.0-46.0) % Plt Count 535 H (150-450) k/uL Lymphocytes # 0.7 L (1.0-4.8) k/uL Sodium 123 L (137-145) mmol/L Chloride 87 L (98-107) mmol/L Carbon Dioxide 19 L (22-30) mmol/L BUN 86 H (7-17) mg/dL Creatinine 4.46 H (0.52-1.04) mg/dL Glucose 283 H (74-99) mg/dL POC Glucose (mg/dL) 375 H (75-99) mg/dL Calcium (8.4-10.2) mg/dL Total Protein 5.8 L (6.3-8.2) g/dL Albumin 3.4 L (3.5-5.0) g/dL 06/06/19 Range/Units 06:37 RBC (3.80-5.40) m/uL Hgb (11.4-16.0) gm/dL Hct (34.0-46.0) % Plt Count (150-450) k/uL Lymphocytes # (1.0-4.8) k/uL Sodium (137-145) mmol/L Chloride (98-107) mmol/L Carbon Dioxide (22-30) mmol/L BUN (7-17) mg/dL Creatinine (0.52-1.04) mg/dL Glucose (74-99) mg/dL POC Glucose (mg/dL) 340 H (75-99) mg/dL Calcium (8.4-10.2) mg/dL Total Protein (6.3-8.2) g/dL Albumin (3.5-5.0) g/dL Assessment and Plan Assessment: Acute on chronic CHF exacerbation, diastolic dysfunction,EF 60-65% Acute on chronic renal failure, stage IV,secondary to cardiorenal syndrome. Baseline 2.5. Elevated troponin secondary to chronic renal failure, not suggestive of cardiac event as per cardiology Recently hospitalized for Acute tracheobronchitis Diabetes mellitus,uncontrolled, hyperglycemia, steroid-induced Hypertension Dyslipidemia moderate aortic stenosis Mild to Moderate aortic stenosis Severe pulmonary hypertension Ongoing nicotine dependence hyponatremia, hypervolemic,fluid volume overload. Plan:Continue on current medication regime ,monitoring and symptomatic treatment.off Bumex drip, chest x-ray pending , continued worsening renal function, hemodialysis initiation/consult vascular surgery for temporary dialysis catheter, as per nephrology. hyperglycemic, increased long-acting insulin.Close monitoring of renal function with repeat labs ordered for a.m.prognosis guarded given multiple complex medical issues. The impression and plan of care has been dictated as directed. : I performed a history and examination of this patient, discussed the same with the dictator. I agree with the dictator's note ,documented as a scribe. Any additional findings or plans will be noted.
--- NOTE | 2019-06-06 10:12 | XR ---
EXAMINATION TYPE: XR chest 1V portable DATE OF EXAM: 06/06/2019 COMPARISON: Prior chest x-ray dated 06/03/2019 HISTORY: Congestive heart failure TECHNIQUE: Single frontal view of the chest is obtained. FINDINGS: The heart remains enlarged. Bibasilar increased density with obscured hemidiaphragms blunt ing of the costophrenic angles again noted. Central vascularity is increased. There is improvement in the interstitium. No pneumothorax. There are overlying cardiac leads. IMPRESSION: Improvement in aeration, volume status.
[2019-06-06 12:04] LABS: Glucose,Whole Blood 303 mg/dL (75-99)
[2019-06-06] MEDS: ISOSORBIDE MONONITRATE ER 30 MG TAB.ER.24H PO SCH (12:21)
[2019-06-06] MEDS: hydrALAZINE HCL 25 MG TAB PO SCH ×2 (12:21→21:07)
--- NOTE | 2019-06-06 12:44 | PN ---
PROGRESS NOTE Patient is seen for followup for acute kidney injury on top of chronic kidney disease. I had discussed renal replacement therapy with the patient yesterday and she was agreeable if her renal function is further worsened. Last night, patient was started on IV fluids and the Bumex drip was discontinued this morning. I have discussed with Dr. Sarkar and plan is to proceed with dialysis and we will decrease the IV fluids. I have advised the patient that this may help prevent repeated readmissions and it will help with the volume overload as well. Her renal function may actually improve down the road and she may be able to come off dialysis. PHYSICAL EXAMINATION: On examination today, blood pressure was 124/70, heart rate 74 per minute, patient is afebrile. Examination of the heart S1, S2. Examination of lungs, decreased breath sounds at the bases, basal crackles are heard. Abdomen is soft, non-tender. Examination of lower extremities shows edema 2+ bilaterally. [employer] exam grossly intact. LABS: Show sodium 123, potassium 4.8, chloride 87, BUN 86, serum creatinine 4.46, hemoglobin 8.0 g/dL. ASSESSMENT: 1. Acute kidney injury, cardiorenal with worsening renal function along with volume overload. Discussed with the patient regarding starting renal replacement therapy and at this time, she would like me to discuss with Dr. Sarkar as well. I have talked with Dr. Sarkar and he is in agreement to proceed with dialysis. I will also decrease the IV fluids. 2. Hypervolemic hyponatremia, expect worsening with IV fluids. I will discontinue the saline. 3. Anemia with evidence of severe iron deficiency with iron saturation at 7% on 05/31/2019. Patient will be started on IV iron. No active bleeding noted. 4. Non-gap metabolic acidosis secondary to renal failure. 5. Congestive heart failure volume overload, mainly diastolic dysfunction, ejection fraction 60% to 65% on echocardiogram in April of 2019. PLAN: DC IV fluids. Proceed with Vascular Surgery consult and I will discuss with the patient regarding starting possible dialysis tomorrow if she is agreeable. MMODL / IJN: [id number] /
--- NOTE | 2019-06-06 13:22 | P.PN ---
Subjective Progress Note Date: 06/06/19 Patient seen and examined today on the telemetry unit, she was transferred out of the intensive care unit, resting comfortably in bed today, afebrile, continues to be on IV Lasix drip at 15 mg per hour which was increased by nephrology today. Patient continues to have evidence of lower extremity edema and is still somewhat short of breath. Blood pressure 120/60 with a heart rate in the 60s, 94% on 3 L of oxygen. Blood cell count 2.9, hemoglobin 7.3, platelet count 280. Sodium 131, potassium 4.0, BUN 63, creatinine 3.1. 06/05/2019 Patient seen and examined this morning, continues to have bilateral lower extremity edema, mild shortness of breath, denies any chest discomfort. I pressure 127/70 with a heart rate in the 70s, 93% on 3 L of oxygen. Sodium today is down to 123, BUN 77, creatinine 3.9. 06/06/2019 Patient seen and examined this morning, her Bumex drip was discontinued and patient was initiated on IV fluids. IV fluids were stopped today, nephrology had a discussion with the patient regarding renal replacement therapy which may help to prevent recurrent readmissions and help with her fluid overload and the patient is in agreement to proceed with this. Blood pressure 124/70 with a heart rate in the 70s, 93% on 3 L of oxygen. White blood cell count 7.3, hemoglobin 8.0, platelet count 535. Sodium 123, potassium 4.8, BUN 86, creatinine 4.4. Objective - Vital Signs Vital signs: Vital Signs Temp 98 F 06/06/19 12:00 Pulse 74 06/06/19 12:00 Resp 20 06/06/19 12:00 BP 124/70 06/06/19 12:00 Pulse Ox 93 L 06/06/19 12:00 Intake & Output 06/05/19 06/06/19 06/06/19 18:59 06:59 18:59 Intake Total 903 525 360 Output Total 300 250 Balance 603 275 360 Weight 89.9 kg 91.4 kg Intake: IV 120 Bumetanide 10 mg In 80 Dextrose 5% in Water 60 ml @ 2 MG/HR 20 mls/hr IV .Q5H [facility] Rx#:[id number] Sodium Chloride 0.9% 1, 40 000 ml @ 5 mls/hr IV . Q24H [facility] Rx#:[id number] Intake, IV Titration 123 525 Amount Bumetanide 10 mg In 123 Dextrose 5% in Water 60 ml @ 2 MG/HR 20 mls/hr IV .Q5H [facility] Rx#:[id number] Sodium Chloride 0.9% 1, 525 000 ml @ 75 mls/hr IV . [id number] [facility] Rx#:[id number] Oral 660 360 Output: Urine 300 250 Other: Voiding Method Bedside Commode Bedside Commode Bedside Commode # Bowel Movements 1 1 - Exam GENERAL EXAM: Alert, pleasant, 79-year-old white female, no acute distress at the time of my examination . HEAD: Normocephalic/atraumatic. EYES: Normal reaction of pupils, equal size. Conjunctiva pink, sclera white. NOSE: Clear with pink turbinates. THROAT: No erythema or exudates. NECK: No masses, no JVD, no thyroid enlargement, no adenopathy. CHEST: No chest wall deformity. Symmetrical expansion. LUNGS: Diminished air entry with end expiratory wheezes CVS: Regular rate and rhythm, normal S1 and S2, no gallops, systolic murmur loudest at the right sternal border, no rubs ABDOMEN: Soft, nontender. No hepatosplenomegaly, normal bowel sounds, no guarding or rigidity. EXTREMITIES: No clubbing, 1+lower extremity edema no cyanosis, 2+ pulses and upper and lower extremities. MUSCULOSKELETAL: Muscle strength and tone normal. SPINE: No scoliosis or deformity SKIN: No rashes CENTRAL NERVOUS SYSTEM: Alert and oriented -3. No focal deficits, tone is normal in all 4 extremities. PSYCHIATRIC: Alert and oriented -3. Appropriate affect. Intact judgment and insight. - Labs CBC & Chem 7: 06/06/19 05:54 06/06/19 05:54 Labs: Abnormal Lab Results - Last 24 Hours (Table) 06/05/19 06/05/19 06/06/19 Range/Units 16:31 20:49 05:54 RBC 2.83 L (3.80-5.40) m/uL Hgb 8.0 L (11.4-16.0) gm/dL Hct 24.9 L (34.0-46.0) % Plt Count 535 H (150-450) k/uL Lymphocytes # 0.7 L (1.0-4.8) k/uL Sodium (137-145) mmol/L Chloride (98-107) mmol/L Carbon Dioxide (22-30) mmol/L BUN (7-17) mg/dL Creatinine (0.52-1.04) mg/dL Glucose (74-99) mg/dL POC Glucose (mg/dL) 371 H 375 H (75-99) mg/dL Total Protein (6.3-8.2) g/dL Albumin (3.5-5.0) g/dL 06/06/19 06/06/19 06/06/19 Range/Units 05:54 06:37 12:00 RBC (3.80-5.40) m/uL Hgb (11.4-16.0) gm/dL Hct (34.0-46.0) % Plt Count (150-450) k/uL Lymphocytes # (1.0-4.8) k/uL Sodium 123 L (137-145) mmol/L Chloride 87 L (98-107) mmol/L Carbon Dioxide 19 L (22-30) mmol/L BUN 86 H (7-17) mg/dL Creatinine 4.46 H (0.52-1.04) mg/dL Glucose 283 H (74-99) mg/dL POC Glucose (mg/dL) 340 H 303 H (75-99) mg/dL Total Protein 5.8 L (6.3-8.2) g/dL Albumin 3.4 L (3.5-5.0) g/dL Assessment and Plan Plan: Assessment and plan: #1. Acute dyspnea related to acute exacerbation of diastolic congestive heart failure #2. Recent hospitalization for acute tracheobronchitis #3. Probable underlying bronchial asthma, however patient has not been following up in the outpatient clinic for outpatient PFT #4. Moderate aortic stenosis #5. Chronic congestive heart failure with diastolic dysfunction and EF of 60- 65% #6. Diabetes mellitus type 2, poorly controlled #7. Chronic kidney disease stage III #8. Lifetime nonsmoker #9. History of diverticulitis #10. History of bowel obstruction with surgical repair #11. Hypertension #12. Hyperlipidemia #13. Lower extremity edema related to cor pulmonale Plan From cardiology's perspective, we'll continue this patient on her current medications. She has agreed to renal replacement therapy, which was discussed with her by nephrology. We will continue to follow. DNP note has been reviewed, I agree with a documented findings and plan of care. Patient was seen and examined.
[2019-06-06 14:20] LABS: Amorphous Sediment,Urine Rare /hpf; Appearance,Urine Cloudy (Clear); Bacteria,Urine Rare /hpf; Bilirubin,Urine Negative (Negative); Blood,Urine Negative (Negative); Color,Urine Yellow; Glucose,Urine (UA) Trace (Negative); Hyaline Casts,Urine 16 /lpf (0-2); Ketones,Urine Negative (Negative); Leukocyte Esterase,Urine Negative (Negative); Mucus,Urine Rare /hpf; Nitrite,Urine Negative (Negative); Protein,Urine 1+ (Negative); RBC,Urine 1 /hpf (0-5); Specific Gravity,Urine 1.014 (1.001-1.035); Squamous Epithelial Cell,Urine 1 /hpf (0-4); Urobilinogen,Urine <2.0 mg/dL (<2.0); WBC,Urine 4 /hpf (0-5)
[2019-06-06] MEDS: POTASSIUM CHLORIDE ER 20 MEQ TAB.ER PO SCH (15:14)
[2019-06-06 16:53] LABS: Glucose,Whole Blood 224 mg/dL (75-99)
[2019-06-06] MEDS ORDERED: MIDAZOLAM 2 MG/2 ML VIAL IV ONE (18:20)
[2019-06-06] MEDS ORDERED: LIDOCAINE 1% INJ 10MG/ML (20 ML MDV) SQ ONE (18:27)
[2019-06-06] MEDS ORDERED: IV FLUID CONTINUATION 1,000 ML IV ONE (18:27)
[2019-06-06] MEDS ORDERED: methylPREDNISolone SOD SUCCI 125 MG/2 ML VIAL IV ONE (18:41)
[2019-06-06] MEDS ORDERED: diphenhydrAMINE 50 MG/ML 1 ML VIAL IVP ONE (18:42)
[2019-06-06] MEDS ORDERED: IOPAMIDOL-370 50ML BTL INJ ONE (18:43)
[2019-06-06] MEDS ORDERED: fentaNYL (PF) 50 MCG/ML 2 ML AMP IV ONE (19:02)
--- NOTE | 2019-06-06 20:04 | XR ---
EXAMINATION TYPE: XR chest 1V portable DATE OF EXAM: 06/06/2019 COMPARISON: Today HISTORY: Possible free air. TECHNIQUE: FINDINGS: Heart is enlarged. There is pulmonary vascular congestion. There is no sign of pneumoperito neum. There is right central venous catheter with tip in the superior vena cava. There are chest lead s. IMPRESSION: Congestive heart failure with pleural effusions unchanged. No evidence of pneumoperitoneu m.
[2019-06-06 21:06] LABS: Glucose,Whole Blood 203 mg/dL (75-99)
[2019-06-06] MEDS: ACETAMINOPHEN TAB 325 MG TAB PO PRN (21:08)
--- NOTE | 2019-06-06 22:19 | IR ---
EXAMINATION TYPE: IR cvc insert central tunneled DATE OF EXAM: 06/06/2019 COMPARISON: NONE HISTORY: Fluoroscopy time. Fluoroscopy was provided to the referring clinician. 4 minutes of fluoroscopy provided.
--- NOTE | 2019-06-07 02:35 | CONS ---
CONSULTATION This is a 79-year-old female. The patient was seen on consultation for placement of dialysis catheter. The patient has an acute kidney injury and BUN and creatinine is high and patient is short of breath. MEDICAL HISTORY: History of hypertension, diabetes, acute chronic renal failure. PHYSICAL EXAMINATION: Patient was seen in her room. Patient in sitting position. Patient has some short of breath. NECK: Supple. CHEST: Few crackles at the lung bases. ABDOMEN: Soft. Femoral pulses are present. The patient has some swelling of the both lower extremities. LAB FINDINGS: Sodium is 123, potassium 4.8, BUN is 86, creatinine is 4.46, hemoglobin is 8. IMPRESSION: Acute kidney injury. PLAN: Placement of the dialysis catheter. Risks and complications of bleeding, infection, thrombosis have been discussed. MMODL / IJN: [id number] /
[2019-06-07 06:50] LABS: Basophils % (A) 0 %; Eosinophils % (A) 0 %; HCT 20.6 % (34.0-46.0); Lymphocytes # (A) 0.4 k/uL (1.0-4.8); Lymphocytes % (A) 9 %; MCH 29.4 pg (25.0-35.0); MCHC 33.8 g/dL (31.0-37.0); MCV 86.9 fL (80.0-100.0); Mean Platelet Volume 7.9; Monocytes # (A) 0.1 k/uL (0-1.0); Monocytes % (A) 3 %; Neutrophils # (A) 3.8 k/uL (1.3-7.7); Neutrophils % (A) 86 %; Platelet Count 459 k/uL (150-450); RBC 2.37 m/uL (3.80-5.40); RDW 14.8 % (11.5-15.5); WBC 4.4 k/uL (3.8-10.6)
[2019-06-07 06:58] LABS: Albumin 3.1 g/dL (3.5-5.0); Calcium 7.9 mg/dL (8.4-10.2); Potassium 5.1 mmol/L (3.5-5.1); Total Bilirubin 0.5 mg/dL (0.2-1.3)
[2019-06-07] MEDS ORDERED: INSULIN DETEMIR (LEVEMIR) 100 UNIT/ML SYR SQ SCH (07:00)
[2019-06-07 07:09] LABS: Glucose,Whole Blood 219 mg/dL (75-99)
--- NOTE | 2019-06-07 07:42 | PCN ---
PROCEDURE NOTE PREOPERATIVE DIAGNOSIS: Acute on chronic renal failure. POSTOPERATIVE DIAGNOSIS: Acute on chronic renal failure. PROCEDURE: Placement of the dialysis catheter right jugular approach, ultrasound-guided and also superior vena cavogram. DESCRIPTION OF PROCEDURE: This patient was brought to the laboratory scientist. Right side of the neck and chest was prepped and drapes were applied in the usual sterile manner and 1% lidocaine was infiltrated in the neck and chest area. Ultrasound-guided micropuncture into the right jugular vein. Micropuncture guidewire was passed. Guidewire was going to the subclavian vein. Then under fluoroscopy we changed the guidewire going towards the superior vena cava. There was some concern about any stenosis superior vena cavogram. The superior vena cava was found to be patent. Patient has a very short neck and after that we created a tunnel. Through the tunnel we brought the 19 cm dialysis catheter. After that, we passed a guidewire which was parked at the inferior vena cava. After that the dilator was brought and sheath was advanced on the top of the guidewire. Through the sheath we introduced the catheter. Tip of the catheter in superior vena cava and atrial junction. After that, we checked under fluoroscopy. The catheter was in good position. This was flushed with heparin saline and hep-locked. Incision was closed with Vicryl and nylon. Dressing applied. Patient tolerated the procedure well. MMODL / IJN: [id number] /
[2019-06-07] MEDS: methylPREDNISolone SOD SUCCI 40 MG/ML 1 ML VIAL IV SCH ×2 (07:43→17:00)
[2019-06-07] MEDS: INSULIN ASPART (NovoLOG) 100 UNIT/ML VIAL SQ SCH ×7 (07:43→22:12)
[2019-06-07] MEDS: INSULIN DETEMIR (LEVEMIR) 100 UNIT/ML SYR SQ SCH (07:43)
[2019-06-07] MEDS: PANTOPRAZOLE 40 MG TABLET PO SCH (07:44)
[2019-06-07] MEDS: ACETAMINOPHEN TAB 325 MG TAB PO PRN (07:54)
[2019-06-07] MEDS: SODIUM CHLORIDE 0.9% 1,000 ML IV SCH ×2 (07:55→22:12)
[2019-06-07] MEDS: IPRATROPIUM-ALBUTEROL 3 ML NEB INHALATION SCH ×4 (08:09→20:49)
[2019-06-07] MEDS: BUDESONIDE 0.5 MG/2 ML NEBU INHALATION SCH ×2 (08:09→20:49)
[2019-06-07] MEDS: POTASSIUM CHLORIDE ER 20 MEQ TAB.ER PO SCH (11:05)
[2019-06-07] MEDS: hydrALAZINE HCL 25 MG TAB PO SCH ×2 (11:05→22:11)
[2019-06-07] MEDS: ATENOLOL 25 MG TAB PO SCH ×2 (11:05→22:11)
[2019-06-07] MEDS: ISOSORBIDE MONONITRATE ER 30 MG TAB.ER.24H PO SCH (11:05)
[2019-06-07] MEDS: ATORVASTATIN 40 MG TAB PO SCH (11:06)
[2019-06-07 11:46] LABS: Glucose,Whole Blood 263 mg/dL (75-99)
--- NOTE | 2019-06-07 12:11 | P.PN ---
Subjective Progress Note Date: 06/07/19 Patient seen and examined today on the telemetry unit, she was transferred out of the intensive care unit, resting comfortably in bed today, afebrile, continues to be on IV Lasix drip at 15 mg per hour which was increased by nephrology today. Patient continues to have evidence of lower extremity edema and is still somewhat short of breath. Blood pressure 120/60 with a heart rate in the 60s, 94% on 3 L of oxygen. Blood cell count 2.9, hemoglobin 7.3, platelet count 280. Sodium 131, potassium 4.0, BUN 63, creatinine 3.1. 06/05/2019 Patient seen and examined this morning, continues to have bilateral lower extremity edema, mild shortness of breath, denies any chest discomfort. I pressure 127/70 with a heart rate in the 70s, 93% on 3 L of oxygen. Sodium today is down to 123, BUN 77, creatinine 3.9. 06/06/2019 Patient seen and examined this morning, her Bumex drip was discontinued and patient was initiated on IV fluids. IV fluids were stopped today, nephrology had a discussion with the patient regarding renal replacement therapy which may help to prevent recurrent readmissions and help with her fluid overload and the patient is in agreement to proceed with this. Blood pressure 124/70 with a heart rate in the 70s, 93% on 3 L of oxygen. White blood cell count 7.3, hemoglobin 8.0, platelet count 535. Sodium 123, potassium 4.8, BUN 86, creatinine 4.4. 06/07/2019 Patient seen and examined this morning, scheduled today to undergo implantation of a dialysis catheter, hemodynamically stable. White blood cell count 4.4 hemoglobin 7.0, Platelet count 459. Sodium 122, potassium 5.1, BUN 102, creatinine 4.4. Objective - Vital Signs Vital signs: Vital Signs Temp 98.3 F 06/07/19 07:56 Pulse 78 06/07/19 11:29 Resp 18 06/07/19 08:00 BP 124/63 06/07/19 07:56 Pulse Ox 91 L 06/07/19 07:56 Intake & Output 06/06/19 06/07/19 06/07/19 18:59 06:59 18:59 Intake Total 1128 40 420 Output Total 80 0 200 Balance 1048 40 220 Weight 93 kg Intake: IV 650 40 180 Sodium Chloride 0.9% 1, 600 40 180 000 ml @ 20 mls/hr IV . Q24H [facility] Rx#:[id number] Oral 478 240 Output: Urine 80 0 200 Other: Voiding Method Bedside Commode Bedside Commode - Exam GENERAL EXAM: Alert, pleasant, 79-year-old white female, no acute distress at the time of my examination . HEAD: Normocephalic/atraumatic. EYES: Normal reaction of pupils, equal size. Conjunctiva pink, sclera white. NOSE: Clear with pink turbinates. THROAT: No erythema or exudates. NECK: No masses, no JVD, no thyroid enlargement, no adenopathy. CHEST: No chest wall deformity. Symmetrical expansion. LUNGS: Diminished air entry with end expiratory wheezes CVS: Regular rate and rhythm, normal S1 and S2, no gallops, systolic murmur loudest at the right sternal border, no rubs ABDOMEN: Soft, nontender. No hepatosplenomegaly, normal bowel sounds, no guarding or rigidity. EXTREMITIES: No clubbing, 1+lower extremity edema no cyanosis, 2+ pulses and upper and lower extremities. MUSCULOSKELETAL: Muscle strength and tone normal. SPINE: No scoliosis or deformity SKIN: No rashes CENTRAL NERVOUS SYSTEM: Alert and oriented -3. No focal deficits, tone is normal in all 4 extremities. PSYCHIATRIC: Alert and oriented -3. Appropriate affect. Intact judgment and insight. - Labs CBC & Chem 7: 06/07/19 06:25 06/07/19 06:25 Labs: Abnormal Lab Results - Last 24 Hours (Table) 06/06/19 06/06/19 06/06/19 Range/Units 13:30 16:52 21:04 RBC (3.80-5.40) m/uL Hgb (11.4-16.0) gm/dL Hct (34.0-46.0) % Plt Count (150-450) k/uL Lymphocytes # (1.0-4.8) k/uL Sodium (137-145) mmol/L Chloride (98-107) mmol/L Carbon Dioxide (22-30) mmol/L BUN (7-17) mg/dL Creatinine (0.52-1.04) mg/dL Glucose (74-99) mg/dL POC Glucose (mg/dL) 224 H 203 H (75-99) mg/dL Calcium (8.4-10.2) mg/dL Total Protein (6.3-8.2) g/dL Albumin (3.5-5.0) g/dL Urine Appearance Cloudy H (Clear) Urine Protein 1+ H (Negative) Urine Glucose (UA) Trace H (Negative) Amorphous Sediment Rare H (None) /hpf Urine Bacteria Rare H (None) /hpf Hyaline Casts 16 H (0-2) /lpf Urine Mucus Rare H (None) /hpf 06/07/19 06/07/19 06/07/19 Range/Units 06:25 06:25 06:48 RBC 2.37 L (3.80-5.40) m/uL Hgb 7.0 L (11.4-16.0) gm/dL Hct 20.6 L (34.0-46.0) % Plt Count 459 H (150-450) k/uL Lymphocytes # 0.4 L (1.0-4.8) k/uL Sodium 122 L (137-145) mmol/L Chloride 90 L (98-107) mmol/L Carbon Dioxide 15 L (22-30) mmol/L BUN 102 H* (7-17) mg/dL Creatinine 4.43 H (0.52-1.04) mg/dL Glucose 166 H (74-99) mg/dL POC Glucose (mg/dL) 219 H (75-99) mg/dL Calcium 7.9 L (8.4-10.2) mg/dL Total Protein 5.0 L (6.3-8.2) g/dL Albumin 3.1 L (3.5-5.0) g/dL Urine Appearance (Clear) Urine Protein (Negative) Urine Glucose (UA) (Negative) Amorphous Sediment (None) /hpf Urine Bacteria (None) /hpf Hyaline Casts (0-2) /lpf Urine Mucus (None) /hpf 06/07/19 Range/Units 11:45 RBC (3.80-5.40) m/uL Hgb (11.4-16.0) gm/dL Hct (34.0-46.0) % Plt Count (150-450) k/uL Lymphocytes # (1.0-4.8) k/uL Sodium (137-145) mmol/L Chloride (98-107) mmol/L Carbon Dioxide (22-30) mmol/L BUN (7-17) mg/dL Creatinine (0.52-1.04) mg/dL Glucose (74-99) mg/dL POC Glucose (mg/dL) 263 H (75-99) mg/dL Calcium (8.4-10.2) mg/dL Total Protein (6.3-8.2) g/dL Albumin (3.5-5.0) g/dL Urine Appearance (Clear) Urine Protein (Negative) Urine Glucose (UA) (Negative) Amorphous Sediment (None) /hpf Urine Bacteria (None) /hpf Hyaline Casts (0-2) /lpf Urine Mucus (None) /hpf Assessment and Plan Plan: Assessment and plan: #1. Acute dyspnea related to acute exacerbation of diastolic congestive heart failure #2. Recent hospitalization for acute tracheobronchitis #3. Probable underlying bronchial asthma, however patient has not been following up in the outpatient clinic for outpatient PFT #4. Moderate aortic stenosis #5. Chronic congestive heart failure with diastolic dysfunction and EF of 60- 65% #6. Diabetes mellitus type 2, poorly controlled #7. Chronic kidney disease stage III #8. Lifetime nonsmoker #9. History of diverticulitis #10. History of bowel obstruction with surgical repair #11. Hypertension #12. Hyperlipidemia #13. Lower extremity edema related to cor pulmonale Plan From cardiology's perspective, we'll continue this patient on her current medica tions. We will go for him dialysis catheter today. We will follow along with her now on an as-needed basis only, please don't hesitate to call if you have any questions at all. DNP note has been reviewed, I agree with a documented findings and plan of care. Patient was seen and examined.
[2019-06-07 16:57] LABS: Glucose,Whole Blood 264 mg/dL (75-99)
--- NOTE | 2019-06-07 17:40 | P.PN ---
Subjective Progress Note Date: 06/07/19 This is a 79-year-old female admitted with acute diastolic CHF exacerbation, tracheobronchitis and multiple other medical issues. Diuresing well on Lasix IV push with 24-hour I&O reflecting a negative fluid balance. Renal function mildly worsened, creatinine 2.59. Feels better today, less shortness of breath. Denies chest pain or palpitations. 05/26/2019 diuresing well on Lasix IV push with 24-hour I&O reflecting a negative fluid balance. Breathing continues to improve. Creatinine maintaining at 2.52. Hemoglobin 8.1. Vital signs stable, maintaining O2 sats in the 90s on 2 L nasal cannula, 89% on room air. Complains of decreased appetite, nausea, no emesis. Denies chest pain, palpitations or worsening shortness of breath. 06/05/2019 maintained on Bumex drip, diuresing well with 24-hour I&O reflecting a negative fluid balance. sodium trending down, 123 with worsening renal funct ion,creatinine up to 3.98. Evaluated by nephrology, hemodialysis recommended,patient initially declining-now considering.blood sugars uncontrolled on IV steroids up to 383.afebrile, vital signs stable, maintaining O2 sats in the low 90s on 3 L nasal cannula.complains of shortness of breath and edema. 06/06/2019 Bumex drip discontinued last night, fluids initiated at 75 MLS per hour. Marginal urine output overnight approximately to 240 mL. nonproductive cough .complains of exertional shortness of breath .hemoglobin 8. Maintaining O2 sats in the mid 90s on 3 L nasal cannula. chest x-ray ordered, pending. Creatinine continues to worsen, 4.46. Sodium remains at 123. Hyperglycemic. 06/07/2019 status post placement of temporary dialysis catheter as per vascular surgery, tolerated procedure well. Hemodialysis scheduled for today. Creatinine 4.43, BUN 102. Hemoglobin 7. Afebrile, WBC 4.4. Objective - Vital Signs Vital signs: Vital Signs Temp 98.1 F 06/07/19 15:46 Pulse 82 06/07/19 17:02 Resp 18 06/07/19 16:00 BP 128/59 06/07/19 15:46 Pulse Ox 92 L 06/07/19 15:46 Intake & Output 02/03/1506/07/19 06/07/19 18:59 06:59 18:59 Intake Total 1128 40 740 Output Total 80 0 200 Balance 1048 40 540 Weight 93 kg Intake: IV 650 40 180 Sodium Chloride 0.9% 1, 600 40 180 000 ml @ 20 mls/hr IV . Q24H [facility] Rx#:[id number] Intake, IV Titration 80 Amount Sodium Chloride 0.9% 1, 80 000 ml @ 20 mls/hr IV . Q24H [facility] Rx#:[id number] Oral 478 480 Output: Urine 80 0 200 Other: Voiding Method Bedside Commode Bedside Commode - Exam PHYSICAL EXAM: VITAL SIGNS: As above GENERAL: Sitting up in bed, no acute distress HEENT: Conjunctivae normal. eyes normal. Oral mucosa moist NECK: No JVD. No thyroid enlargement. No LNs CARDIOVASCULAR: S1, S2 regular. Systolic murmur RESPIRATION: Breath sounds diminished in the bases. fine expiratory wheezing. ABDOMEN: Soft, nontender . No guarding. no masses palpable. No ascites, No hepatosplenomegaly.Bowel sounds heard. LEGS: positive edema, 2+ pulses.no cyanosis. PSYCHIATRY: Alert and oriented X3, mood and affect normal. NERVOUS SYSTEM: Cranial N 2-12 grossly normal. Moves all 4 limbs. No focal deficits. Strength and sensation grossly intact.. Skin: no rash - Labs CBC & Chem 7: 06/07/19 06:25 06/07/19 06:25 Labs: Abnormal Lab Results - Last 24 Hours (Table) 06/06/19 06/07/19 06/07/19 Range/Units 21:04 06:25 06:25 RBC 2.37 L (3.80-5.40) m/uL Hgb 7.0 L (11.4-16.0) gm/dL Hct 20.6 L (34.0-46.0) % Plt Count 459 H (150-450) k/uL Lymphocytes # 0.4 L (1.0-4.8) k/uL Sodium 122 L (137-145) mmol/L Chloride 90 L (98-107) mmol/L Carbon Dioxide 15 L (22-30) mmol/L BUN 102 H* (7-17) mg/dL Creatinine 4.43 H (0.52-1.04) mg/dL Glucose 166 H (74-99) mg/dL POC Glucose (mg/dL) 203 H (75-99) mg/dL Calcium 7.9 L (8.4-10.2) mg/dL Total Protein 5.0 L (6.3-8.2) g/dL Albumin 3.1 L (3.5-5.0) g/dL 06/07/19 06/07/19 06/07/19 Range/Units 06:48 11:45 16:49 RBC (3.80-5.40) m/uL Hgb (11.4-16.0) gm/dL Hct (34.0-46.0) % Plt Count (150-450) k/uL Lymphocytes # (1.0-4.8) k/uL Sodium (137-145) mmol/L Chloride (98-107) mmol/L Carbon Dioxide (22-30) mmol/L BUN (7-17) mg/dL Creatinine (0.52-1.04) mg/dL Glucose (74-99) mg/dL POC Glucose (mg/dL) 219 H 263 H 264 H (75-99) mg/dL Calcium (8.4-10.2) mg/dL Total Protein (6.3-8.2) g/dL Albumin (3.5-5.0) g/dL Assessment and Plan Assessment: Acute on chronic CHF exacerbation, diastolic dysfunction,EF 60-65% Acute on chronic renal failure, stage IV,secondary to cardiorenal syndrome. Baseline 2.5. Status post temporary dialysis catheter placement with initiation of hemodialysis Elevated troponin secondary to chronic renal failure, not suggestive of cardiac event as per cardiology Recently hospitalized for Acute tracheobronchitis Diabetes mellitus,uncontrolled, hyperglycemia, steroid-induced Hypertension Dyslipidemia moderate aortic stenosis Mild to Moderate aortic stenosis Severe pulmonary hypertension Ongoing nicotine dependence hyponatremia, hypervolemic,fluid volume overload. Plan:Continue on current medication regime ,monitoring and symptomatic treatment.hemodialysis scheduled for today. Mildly hyperglycemic, monitor how patient responds to dialysis and possibly increase long-acting insulin in a.m. Close monitoring of renal function with repeat labs ordered for a.m.prognosis guarded given multiple complex medical issues. Patient may transfer off of telemetry unit to [facility] with remote telemetry. Case management arranging outpatient dialysis center as per discussion with nephrology. Discharge planning in progress for the next 48 hours, pending nephrology clearance. The impression and plan of care has been dictated as directed. : I performed a history and examination of this patient, discussed the same with the dictator. I agree with the dictator's note ,documented as a scribe. Any additional findings or plans will be noted.
[2019-06-07] MEDS ORDERED: DARBEPOETIN ALFA 60 MCG/0.3 ML SYRINGE SQ SCH (20:00)
--- NOTE | 2019-06-07 20:05 | PN ---
PROGRESS NOTE Patient is seen for followup for acute kidney injury on top of chronic kidney disease. Patient will be started on hemodialysis today. Her BUN is up to 102. Creatinine has increased to 4.4 mg/dL. Patient continues to be quite short of breath. Her 24-hour urine output is documented at about 550 mL. Patient had her PermCath placed. She is agreeable to proceed with dialysis. PHYSICAL EXAMINATION: On examination today, blood pressure is 128/59, heart rate 80 per minute. She is afebrile. EXAMINATION OF THE HEART: S1 and S2. EXAMINATION OF LUNGS: Decreased breath sounds at bases. Crackles are heard at the bases. ABDOMEN: Soft, non-tender. Examination of lower extremities shows edema 2+ bilaterally. ANALOG IC DESIGN ENGINEER exam is grossly intact. LABS: Sodium 122, potassium 5.1, chloride 90. CO2 is 15. BUN 102, serum creatinine 4.43. ASSESSMENT: 1. Acute kidney injury; acute tubular necrosis versus cardiorenal syndrome, progressively worsening along with significant volume overload. Patient will be started on dialysis today. She will have another treatment tomorrow. At this time I am unsure if the patient will be able to come off of dialysis. However, I hope there will be recovery of renal function, as this is mostly acute kidney injury on top of chronic kidney disease. 2. Severe volume overload. Expect improvement with dialysis. Currently off of Bumex drip. 3. Hypervolemic hyponatremia. Expect improvement with dialysis. 4. Anion gap metabolic acidosis, mostly associated with renal failure. 5. Diastolic heart failure. 6. Anemia, maintained on Aranesp, with evidence of significant iron deficiency noted as well. I will give her IV iron starting tomorrow if she has not had any IV iron recently. PLAN: Repeat dialysis tomorrow. Add IV iron if the patient has not received any parenteral iron recently. Repeat labs in a.m. MMODL / IJN: [id number] /
[2019-06-07 20:25] LABS: Glucose,Whole Blood 191 mg/dL (75-99)
[2019-06-07 22:07] LABS: Glucose,Whole Blood 232 mg/dL (75-99)
[2019-06-08] MEDS: methylPREDNISolone SOD SUCCI 40 MG/ML 1 ML VIAL IV SCH ×4 (00:03→23:34)
[2019-06-08 06:58] LABS: Glucose,Whole Blood 276 mg/dL (75-99)
[2019-06-08] MEDS: INSULIN ASPART (NovoLOG) 100 UNIT/ML VIAL SQ SCH ×7 (07:12→20:26)
[2019-06-08] MEDS: PANTOPRAZOLE 40 MG TABLET PO SCH (07:12)
[2019-06-08] MEDS: INSULIN DETEMIR (LEVEMIR) 100 UNIT/ML SYR SQ SCH (07:12)
[2019-06-08] MEDS: IPRATROPIUM-ALBUTEROL 3 ML NEB INHALATION SCH ×4 (08:08→21:10)
[2019-06-08] MEDS: BUDESONIDE 0.5 MG/2 ML NEBU INHALATION SCH ×2 (08:08→21:10)
[2019-06-08 10:03] LABS: Calcium 7.6 mg/dL (8.4-10.2); Potassium 4.4 mmol/L (3.5-5.1)
[2019-06-08 10:20] LABS: HCT 21.3 % (34.0-46.0); MCH 28.5 pg (25.0-35.0); MCHC 32.7 g/dL (31.0-37.0); Mean Platelet Volume 8.2; Platelet Count 325 k/uL (150-450); RBC 2.45 m/uL (3.80-5.40); RDW 15.2 % (11.5-15.5); WBC 4.5 k/uL (3.8-10.6)
[2019-06-08] MEDS: POTASSIUM CHLORIDE ER 20 MEQ TAB.ER PO SCH (11:35)
[2019-06-08] MEDS: hydrALAZINE HCL 25 MG TAB PO SCH ×2 (11:35→20:26)
[2019-06-08] MEDS: ISOSORBIDE MONONITRATE ER 30 MG TAB.ER.24H PO SCH (11:35)
[2019-06-08] MEDS: ATORVASTATIN 40 MG TAB PO SCH (11:35)
[2019-06-08] MEDS: ATENOLOL 25 MG TAB PO SCH ×2 (11:35→20:26)
[2019-06-08 11:56] LABS: Glucose,Whole Blood 251 mg/dL (75-99)
[2019-06-08] MEDS ORDERED: INSULIN DETEMIR (LEVEMIR) 100 UNIT/ML SYR SQ ONE (15:53)
--- NOTE | 2019-06-08 15:56 | P.PN ---
Subjective Progress Note Date: 06/15/19 This is a 79-year-old female admitted with acute diastolic CHF exacerbation, tracheobronchitis and multiple other medical issues. Diuresing well on Lasix IV push with 24-hour I&O reflecting a negative fluid balance. Renal function mildly worsened, creatinine 2.59. Feels better today, less shortness of breath. Denies chest pain or palpitations. 05/26/2019 diuresing well on Lasix IV push with 24-hour I&O reflecting a negative fluid balance. Breathing continues to improve. Creatinine maintaining at 2.52. Hemoglobin 8.1. Vital signs stable, maintaining O2 sats in the 90s on 2 L nasal cannula, 89% on room air. Complains of decreased appetite, nausea, no emesis. Denies chest pain, palpitations or worsening shortness of breath. 06/05/2019 maintained on Bumex drip, diuresing well with 24-hour I&O reflecting a negative fluid balance. sodium trending down, 123 with worsening renal funct ion,creatinine up to 3.98. Evaluated by nephrology, hemodialysis recommended,patient initially declining-now considering.blood sugars uncontrolled on IV steroids up to 383.afebrile, vital signs stable, maintaining O2 sats in the low 90s on 3 L nasal cannula.complains of shortness of breath and edema. 06/06/2019 Bumex drip discontinued last night, fluids initiated at 75 MLS per hour. Marginal urine output overnight approximately to 240 mL. nonproductive cough .complains of exertional shortness of breath .hemoglobin 8. Maintaining O2 sats in the mid 90s on 3 L nasal cannula. chest x-ray ordered, pending. Creatinine continues to worsen, 4.46. Sodium remains at 123. Hyperglycemic. 06/07/2019 status post placement of temporary dialysis catheter as per vascular surgery, tolerated procedure well. Hemodialysis scheduled for today. Creatinine 4.43, BUN 102. Hemoglobin 7. Afebrile, WBC 4.4. Denies chest pain, palpitations or increasing shortness of breath. Objective - Vital Signs Vital signs: Vital Signs Temp 97.3 F L 06/08/19 07:10 Pulse 70 06/08/19 08:25 Resp 17 06/08/19 07:10 BP 151/72 06/08/19 07:10 Pulse Ox 96 06/08/19 08:08 Intake & Output 06/07/19 06/08/19 06/08/19 18:59 06:59 18:59 Intake Total 980 50 Output Total 200 2000 Balance 780 -1951 Weight 94.5 kg Intake: IV 180 Sodium Chloride 0.9% 1, 180 000 ml @ 20 mls/hr IV . Q24H [facility] Rx#:[id number] Intake, IV Titration 80 Amount Sodium Chloride 0.9% 1, 80 000 ml @ 20 mls/hr IV . Q24H [facility] Rx#:[id number] Oral 720 50 Output: Urine 200 Stool 1 Hemodialysis 1999 Other: Voiding Method Bedside Commode Bedside Commode - Exam PHYSICAL EXAM: VITAL SIGNS: As above GENERAL: Sitting up in bed, no acute distress HEENT: Conjunctivae normal. eyes normal. Oral mucosa moist NECK: No JVD. No thyroid enlargement. No LNs CARDIOVASCULAR: S1, S2 regular. Systolic murmur RESPIRATION: Breath sounds diminished in the bases. fine expiratory wheezing. ABDOMEN: Soft, nontender . No guarding. no masses palpable. Bowel sounds heard. LEGS: positive edema, 2+ pulses.no cyanosis. PSYCHIATRY: Alert and oriented X3, mood and affect normal. NERVOUS SYSTEM: Cranial N 2-12 grossly normal. Moves all 4 limbs. No focal deficits. Strength and sensation grossly intact.. Skin: no rash - Labs CBC & Chem 7: 06/08/19 10:00 06/08/19 08:15 Labs: Abnormal Lab Results - Last 24 Hours (Table) 06/07/19 06/07/19 06/07/19 Range/Units 11:45 16:49 20:23 RBC (3.80-5.40) m/uL Hgb (11.4-16.0) gm/dL Hct (34.0-46.0) % Sodium (137-145) mmol/L Chloride (98-107) mmol/L Carbon Dioxide (22-30) mmol/L BUN (7-17) mg/dL Creatinine (0.52-1.04) mg/dL Glucose (74-99) mg/dL POC Glucose (mg/dL) 263 H 264 H 191 H (75-99) mg/dL Calcium (8.4-10.2) mg/dL 06/07/19 06/08/19 06/08/19 Range/Units 22:00 06:51 08:15 RBC (3.80-5.40) m/uL Hgb (11.4-16.0) gm/dL Hct (34.0-46.0) % Sodium 127 L (137-145) mmol/L Chloride 94 L (98-107) mmol/L Carbon Dioxide 19 L (22-30) mmol/L BUN 91 H (7-17) mg/dL Creatinine 4.13 H (0.52-1.04) mg/dL Glucose 266 H (74-99) mg/dL POC Glucose (mg/dL) 232 H 276 H (75-99) mg/dL Calcium 7.6 L (8.4-10.2) mg/dL 06/08/19 Range/Units 10:00 RBC 2.45 L (3.80-5.40) m/uL Hgb 7.0 L (11.4-16.0) gm/dL Hct 21.3 L (34.0-46.0) % Sodium (137-145) mmol/L Chloride (98-107) mmol/L Carbon Dioxide (22-30) mmol/L BUN (7-17) mg/dL Creatinine (0.52-1.04) mg/dL Glucose (74-99) mg/dL POC Glucose (mg/dL) (75-99) mg/dL Calcium (8.4-10.2) mg/dL Assessment and Plan Assessment: Acute on chronic CHF exacerbation, diastolic dysfunction,EF 60-65% Acute on chronic renal failure, stage IV,secondary to cardiorenal syndrome. Baseline 2.5. Status post temporary dialysis catheter placement with initiation of hemodialysis Elevated troponin secondary to chronic renal failure, not suggestive of cardiac event as per cardiology Recently hospitalized for Acute tracheobronchitis Diabetes mellitus,uncontrolled, hyperglycemia, steroid-induced Hypertension Dyslipidemia moderate aortic stenosis Mild to Moderate aortic stenosis Severe pulmonary hypertension Ongoing nicotine dependence hyponatremia, hypervolemic,fluid volume overload. Plan:Continue on current medication regime ,monitoring and symptomatic treatment.hemodialysis scheduled for today. Blood sugars uncontrolled, Levemir insulin increased.Close monitoring of renal function, electrolytes with repeat labs ordered for a.m.prognosis guarded given multiple complex medical issues. Case management arranging outpatient dialysis center as per discussion with nephrology. The impression and plan of care has been dictated as directed. : I performed a history and examination of this patient, discussed the same with the dictator. I agree with the dictator's note ,documented as a scribe. Any additional findings or plans will be noted.
--- NOTE | 2019-06-08 16:24 | PN ---
PROGRESS NOTE Patient is seen for followup for acute kidney injury on top of chronic kidney disease and volume overload. She was dialyzed yesterday. We had about 2 L of ultrafiltration. Today we are going for about 3 L. Patient is complaining of edema. She states she may be feeling slightly better, but she is not sure. PHYSICAL EXAMINATION: On examination today, blood pressure was 128/54, heart rate 68 per minute. She is afebrile. EXAMINATION OF THE HEART: S1 and S2. EXAMINATION OF LUNGS: Decreased breath sounds at bases. ABDOMEN: Soft, obese, non-tender. Examination of lower extremities shows edema 2+ bilaterally, upper and lower extremities. WIRE COMMUNICATIONS ENGINEER exam is grossly intact. LABS: Sodium 127, potassium 4.4. CO2 is 19, BUN 91, creatinine 4.1. ASSESSMENT: 1. Acute kidney injury on top of chronic kidney disease, mainly cardiorenal, with persistent volume overload; started on dialysis. Patient tolerated her treatment very well yesterday. She is being dialyzed again today and we will plan for dialysis again tomorrow. So far we will have about 5 L of ultrafiltration and will plan for another 3-4 L tomorrow. 2. Volume overload, diastolic heart failure. Expect further improvement with ongoing dialysis and ultrafiltration. 3. Anemia. No active bleeding noted. Maintained on Aranesp, with evidence of iron deficiency, status post IV iron this hospitalization. 4. Hyponatremia which is hypervolemic, improved with dialysis. PLAN: Repeat hemodialysis in a.m. Discontinue potassium supplementation. Arrange for outpatient treatment and repeat labs in a.m. Continue with the Aranesp. MMODL / IJN: [id number] /
[2019-06-08 16:53] LABS: Glucose,Whole Blood 219 mg/dL (75-99)
[2019-06-08 20:05] LABS: Glucose,Whole Blood 249 mg/dL (75-99)
[2019-06-08] MEDS: SODIUM CHLORIDE 0.9% 1,000 ML IV SCH (20:30)
[2019-06-09 06:55] LABS: Glucose,Whole Blood 245 mg/dL (75-99)
[2019-06-09] MEDS: methylPREDNISolone SOD SUCCI 40 MG/ML 1 ML VIAL IV SCH ×2 (07:29→17:20)
[2019-06-09] MEDS: PANTOPRAZOLE 40 MG TABLET PO SCH (07:29)
[2019-06-09] MEDS: INSULIN DETEMIR (LEVEMIR) 100 UNIT/ML SYR SQ SCH (07:29)
[2019-06-09] MEDS: INSULIN ASPART (NovoLOG) 100 UNIT/ML VIAL SQ SCH ×7 (07:30→21:21)
[2019-06-09] MEDS: IPRATROPIUM-ALBUTEROL 3 ML NEB INHALATION SCH ×4 (07:54→21:45)
[2019-06-09] MEDS: BUDESONIDE 0.5 MG/2 ML NEBU INHALATION SCH ×2 (07:54→21:45)
--- NOTE | 2019-06-09 10:39 | P.PN ---
Subjective Patient is seen in follow-up for acute kidney injury on chronic kidney disease. She is currently hemodialysis dependent. Still gets short of breath intermittently. Currently seen while undergoing hemodialysis. Tolerating ultrafiltration well. Vital signs are stable. General: The patient appeared well nourished and normally developed. HEENT: Head exam is unremarkable. Neck is without jugular venous distension. LUNGS: Lungs are clear to auscultation and percussion. Breath sounds decreased. HEART: Rate and Rhythm are regular. First and second heart sounds normal. No murmurs, rubs or gallops. ABDOMEN: Abdominal exam reveals normal bowel sounds. Non-tender and non- distended. No evidence of peritonitis. EXTREMITITES: No clubbing, cyanosis, or edema. Objective - Vital Signs Vital signs: Vital Signs Temp 98.2 F 06/09/19 06:50 Pulse 64 06/09/19 08:09 Resp 15 06/09/19 06:50 BP 136/73 06/09/19 06:50 Pulse Ox 97 06/09/19 07:57 Intake & Output 06/08/19 06/09/19 06/09/19 18:59 06:59 18:59 Intake Total 60 Output Total 3250 600 Balance -3250 -540 Weight 94.5 kg Intake: IV 60 Sodium Chloride 0.9% 1, 60 000 ml @ 20 mls/hr IV . Q24H [facility] Rx#:[id number] Output: Urine 250 600 Hemodialysis 3000 Other: Voiding Method Bedside Commode # Voids 0 1 # Bowel Movements 1 - Labs CBC & Chem 7: 06/08/19 10:00 06/08/19 08:15 Labs: Abnormal Lab Results - Last 24 Hours (Table) 06/08/19 06/08/19 06/08/19 Range/Units 11:43 16:52 20:03 POC Glucose (mg/dL) 251 H 219 H 249 H (75-99) mg/dL 06/09/19 Range/Units 06:54 POC Glucose (mg/dL) 245 H (75-99) mg/dL Assessment and Plan Plan: Assessment: 1. Acute kidney injury mostly prerenal secondary to cardiorenal syndrome. Currently hemodialysis dependent. 2. Chronic kidney disease stage III with baseline creatinine in the range of 1.5-1.7 in April 2016 to April 2017. However this year her renal function has been worse with creatinine near 2.5. There is concern for progression of underlying chronic kidney disease. Ultrasound from earlier this month revealed small sized kidneys without any hydronephrosis. UA from earlier this month revealed trace proteinuria, otherwise benign. 3. Acute on chronic diastolic CHF with moderate aortic stenosis. 4. Volume overload with pulmonary edema. Improving with ultrafiltration. 5. Hyponatremia, currently hypervolemic. 6. Hypertension with chronic kidney disease. Controlled. 7. History of COPD. 8. Diabetes mellitus. 9. Anemia of chronic kidney disease. Status post IV iron. Maintained on Aranesp. Plan: Currently seen while undergoing hemodialysis. Another treatment tomorrow. She will be maintained on a Wednesday schedule outpatient. Monitor for renal recovery outpatient.
[2019-06-09 12:02] LABS: Glucose,Whole Blood 222 mg/dL (75-99)
[2019-06-09] MEDS: hydrALAZINE HCL 25 MG TAB PO SCH ×2 (12:04→21:20)
[2019-06-09] MEDS: ATENOLOL 25 MG TAB PO SCH ×2 (12:04→21:21)
[2019-06-09] MEDS: ATORVASTATIN 40 MG TAB PO SCH (12:04)
[2019-06-09] MEDS: ISOSORBIDE MONONITRATE ER 30 MG TAB.ER.24H PO SCH (12:05)
--- NOTE | 2019-06-09 14:48 | P.DS ---
Providers Date of admission: 05/23/19 12:48 Expected date of discharge: 06/09/19 Attending physician: Alexander Sarkar Consults: 05/23/19 13:49 Consult Physician Routine Consulting Provider: Yulissa Valdivia Consult Reason/Comments: hypoxia Do you want consulting provider notified?: Yes 05/23/19 18:13 Consult Physician Urgent Consulting Provider: Jaylin Vinson Consult Reason/Comments: elevated trops/d-dimer Do you want consulting provider notified?: Yes 05/29/19 08:51 Consult Physician Stat Consulting Provider: Chapo Aguiar Consult Reason/Comments: elevated creatinine Do you want consulting provider notified?: Yes 06/06/19 13:26 Consult Physician Routine Consulting Provider: Thuan Elizabeth Consult Reason/Comments: hemodialysis catheter today for HD tomorrow Do you want consulting provider notified?: Yes Primary care physician: [facility] Course: Final Diagnoses: Acute on chronic CHF exacerbation, diastolic dysfunction,EF 60-65% Acute on chronic renal failure, stage IV,secondary to cardiorenal syndrome. Baseline 2.5. Status post temporary dialysis catheter placement with initiation of hemodialysis Elevated troponin secondary to chronic renal failure, not suggestive of cardiac event as per cardiology Recently hospitalized for Acute tracheobronchitis Diabetes mellitus,uncontrolled, hyperglycemia, steroid-induced Hypertension Dyslipidemia moderate aortic stenosis Mild to Moderate aortic stenosis Severe pulmonary hypertension Ongoing nicotine dependence hyponatremia, hypervolemic,fluid volume overload. Hospital course:This is a 79-year-old female admitted with acute diastolic CHF exacerbation, tracheobronchitis and multiple other medical issues. Diuresing well on Lasix IV push with 24-hour I&O reflecting a negative fluid balance. Renal function mildly worsened, creatinine 2.59. Feels better today, less shortness of breath. Denies chest pain or palpitations. 05/26/2019 diuresing well on Lasix IV push with 24-hour I&O reflecting a negative fluid balance. Breathing continues to improve. Creatinine maintaining at 2.52. Hemoglobin 8.1. Vital signs stable, maintaining O2 sats in the 90s on 2 L nasal cannula, 89% on room air. Complains of decreased appetite, nausea, no emesis. Denies chest pain, palpitations or worsening shortness of breath. 06/05/2019 maintained on Bumex drip, diuresing well with 24-hour I&O reflecting a negative fluid balance. sodium trending down, 123 with worsening renal function,creatinine up to 3.98. Evaluated by nephrology, hemodialysis recommended,patient initially declining-now considering.blood sugars uncontrolled on IV steroids up to 383.afebrile, vital signs stable, maintaining O2 sats in the low 90s on 3 L nasal cannula.complains of shortness of breath and edema. 06/06/2019 Bumex drip discontinued last night, fluids initiated at 75 MLS per hour. Marginal urine output overnight approximately to 240 mL. nonproductive cough .complains of exertional shortness of breath .hemoglobin 8. Maintaining O2 sats in the mid 90s on 3 L nasal cannula. chest x-ray ordered, pending. Creatinine continues to worsen, 4.46. Sodium remains at 123. Hyperglycemic. 06/07/2019 status post placement of temporary dialysis catheter as per vascular surgery, tolerated procedure well. Hemodialysis scheduled for today. Creatinine 4.43, BUN 102. Hemoglobin 7. Afebrile, WBC 4.4. Denies chest pain, palpitations or increasing shortness of breath. Tolerating hemodialysis well. Case management has arranged for outpatient hemodialysis. Significant clinical improvement. Cleared by all consults for discharge. Patient is being discharged home in a stable condition with guarded prognosis. O2 sat on room air after ambulation pending. Patient being sent home on Levemir insulin, will require further dosing once steroid taper completed. General: Alert and oriented 3, no acute distress HEENT: No jugular venous distension. LUNGS: Lungs are clear to auscultation and percussion. Breath sounds decreased. HEART: Rate and Rhythm are regular. First and second heart sounds normal. No murmurs, rubs or gallops. ABDOMEN: Abdominal exam reveals normal bowel sounds. Non-tender and non- distended. No evidence of peritonitis. EXTREMITITES: No clubbing, cyanosis, or edema. The impression and plan of care has been dictated as directed. : I performed a history and examination of this patient, discussed the same with the dictator. I agree with the dictator's note ,documented as a scribe. Any additional findings or plans will be noted. Patient Condition at Discharge: Stable Plan - Discharge Summary Discharge Rx Participant: No New Discharge Prescriptions: New hydrALAZINE HCL [Apresoline] 25 mg PO BID #60 tab Darbepoetin Tien [Aranesp] 60 mcg SQ Q7D syringe Isosorbide Mononitrate ER [Imdur] 30 mg PO DAILY #30 tab.er.24h predniSONE 10 mg PO DIRECTED #30 tab Insulin Detemir (Levemir) [Levemir] 35 unit SQ DAILY@0700 #1 syr Continue Atorvastatin [Lipitor] 40 mg PO DAILY Pantoprazole [Protonix] 40 mg PO AC-BRKFST #30 tablet. Atenolol [Tenormin] 25 mg PO BID #30 tab Benzonatate [Tessalon Perles] 100 mg PO TID PRN PRN Reason: Cough Albuterol Nebulized [Ventolin Nebulized] 2.5 mg INHALATION RT-TID PRN PRN Reason: Shortness Of Breath Discontinued Potassium Chloride ER [K-Dur 20] 20 meq PO DAILY Pioglitazone [Actos] 30 mg PO DAILY Sodium Bicarbonate Tab 650 mg PO BID #20 tab amLODIPine [Norvasc] 10 mg PO DAILY #30 tab Furosemide [Lasix] 40 mg PO AC-BID Discharge Medication List Atorvastatin [Lipitor] 40 mg PO DAILY 05/04/19 [History] Atenolol [Tenormin] 25 mg PO BID #30 tab 05/11/19 [Rx] Pantoprazole [Protonix] 40 mg PO AC-BRKFST #30 tablet. 05/11/19 [Rx] Albuterol Nebulized [Ventolin Nebulized] 2.5 mg INHALATION RT-TID PRN 05/23/19 [History] Benzonatate [Tessalon Perles] 100 mg PO TID PRN 05/23/19 [History] Darbepoetin Tien [Aranesp] 60 mcg SQ Q7D syringe 06/09/19 [Rx] Insulin Detemir (Levemir) [Levemir] 35 unit SQ DAILY@0700 #1 syr 06/09/19 [Rx] Isosorbide Mononitrate ER [Imdur] 30 mg PO DAILY #30 tab.er.24h 06/09/19 [Rx] hydrALAZINE HCL [Apresoline] 25 mg PO BID #60 tab 06/09/19 [Rx] predniSONE 10 mg PO DIRECTED #30 tab 06/09/19 [Rx] Follow up Appointment(s)/Referral(s): Alexander Sarkar MD [Primary Care Provider] - 3 Days (office not answering Please call to make appointment) Trisha Russell MD [STAFF PHYSICIAN] - 06/23/19 10:15 am Patient Instructions/Handouts: Heart Failure (DC), Type 2 Diabetes in Adults: New Diagnosis (DC), COPD (Chronic Obstructive Pulmonary Disease) (DC) Activity/Diet/Wound Care/Special Instructions: Lasix 80mg bid, as per nephrology, manual RX given. Hemodialysis at [facility] on Mondays, Wednesdays, and Fridays. Address: [address] [place] [address], [place] [address]. . Chair time: 5:20 p.m. Diabetic supplies, diabetic teaching Accu-Cheks before meals and at bedtime, maintain log intake to follow-up visit with PCP for further recommendations. Will need further dose adjustment once off of steroid taper. O2 sat on room air after ambulation pending PT evaluation pending
[2019-06-09 16:55] LABS: Glucose,Whole Blood 150 mg/dL (75-99)
[2019-06-09] MEDS: SODIUM CHLORIDE 0.9% 1,000 ML IV SCH (19:50)
[2019-06-09 19:52] LABS: Glucose,Whole Blood 178 mg/dL (75-99)
[2019-06-10] MEDS: methylPREDNISolone SOD SUCCI 40 MG/ML 1 ML VIAL IV SCH ×3 (00:51→17:47)
[2019-06-10 07:04] LABS: Glucose,Whole Blood 229 mg/dL (75-99)
[2019-06-10] MEDS: IPRATROPIUM-ALBUTEROL 3 ML NEB INHALATION SCH ×4 (07:36→18:59)
[2019-06-10] MEDS: BUDESONIDE 0.5 MG/2 ML NEBU INHALATION SCH ×2 (07:36→18:59)
[2019-06-10] MEDS: hydrALAZINE HCL 25 MG TAB PO SCH ×2 (08:05→20:18)
[2019-06-10] MEDS: ATENOLOL 25 MG TAB PO SCH ×2 (08:05→20:18)
[2019-06-10] MEDS: ISOSORBIDE MONONITRATE ER 30 MG TAB.ER.24H PO SCH (08:05)
[2019-06-10] MEDS: INSULIN DETEMIR (LEVEMIR) 100 UNIT/ML SYR SQ SCH (08:05)
[2019-06-10] MEDS: PANTOPRAZOLE 40 MG TABLET PO SCH (08:06)
[2019-06-10] MEDS: INSULIN ASPART (NovoLOG) 100 UNIT/ML VIAL SQ SCH ×7 (08:06→20:18)
[2019-06-10] MEDS: ATORVASTATIN 40 MG TAB PO SCH (08:07)
--- NOTE | 2019-06-10 09:28 | P.PN ---
Subjective Patient is seen in follow-up for acute kidney injury on chronic kidney disease. She is currently hemodialysis dependent. Still gets short of breath intermittently. Currently seen while undergoing hemodialysis. Tolerating ultrafiltration well. No changes overnight. Hemodynamically stable. Vital signs are stable. General: The patient appeared well nourished and normally developed. HEENT: Head exam is unremarkable. Neck is without jugular venous distension. LUNGS: Lungs are clear to auscultation and percussion. Breath sounds decreased. HEART: Rate and Rhythm are regular. First and second heart sounds normal. No murmurs, rubs or gallops. ABDOMEN: Abdominal exam reveals normal bowel sounds. Non-tender and non- distended. No evidence of peritonitis. EXTREMITITES: 1+ edema. Objective - Vital Signs Vital signs: Vital Signs Temp 90.1 F L 06/10/19 07:00 Pulse 68 06/10/19 07:54 Resp 17 06/10/19 07:00 BP 143/70 06/10/19 07:00 Pulse Ox 93 L 06/10/19 07:00 Intake & Output 06/09/19 06/10/19 06/10/19 18:59 06:59 18:59 Output Total 3400 Balance -3400 Weight 92.5 kg Output: Urine 400 Hemodialysis 3000 Other: Voiding Method Bedside Commode # Bowel Movements 1 - Labs CBC & Chem 7: 06/08/19 10:00 06/08/19 08:15 Labs: Abnormal Lab Results - Last 24 Hours (Table) 06/09/19 06/09/19 06/09/19 Range/Units 11:54 16:53 19:51 POC Glucose (mg/dL) 222 H 150 H 178 H (75-99) mg/dL 06/10/19 Range/Units 07:00 POC Glucose (mg/dL) 229 H (75-99) mg/dL Assessment and Plan Plan: Assessment: 1. Acute kidney injury mostly prerenal secondary to cardiorenal syndrome. Currently hemodialysis dependent. 2. Chronic kidney disease stage III with baseline creatinine in the range of 1.5-1.7 in April 2016 to April 2017. However this year her renal function has been worse with creatinine near 2.5. There is concern for progression of underlying chronic kidney disease. Ultrasound from earlier this month revealed small sized kidneys without any hydronephrosis. UA from earlier this month revealed trace proteinuria, otherwise benign. 3. Acute on chronic diastolic CHF with moderate aortic stenosis. 4. Volume overload with pulmonary edema. Improving with ultrafiltration. 5. Hyponatremia, currently hypervolemic. 6. Hypertension with chronic kidney disease. Controlled. 7. History of COPD. 8. Diabetes mellitus. 9. Anemia of chronic kidney disease. Status post IV iron. Maintained on Aranesp. Plan: Currently seen while undergoing hemodialysis. She will be maintained on a Wednesday schedule outpatient. Monitor for renal recovery outpatient. Scheduled for discharge after dialysis today. Add Lasix 80 mg orally twice daily.
[2019-06-10 11:35] LABS: Glucose,Whole Blood 209 mg/dL (75-99)
[2019-06-10 16:29] LABS: Glucose,Whole Blood 174 mg/dL (75-99)
[2019-06-10] MEDS: FUROSEMIDE 80 MG TAB PO SCH (17:48)
[2019-06-10 20:13] LABS: Glucose,Whole Blood 275 mg/dL (75-99)
[2019-06-10] MEDS: SODIUM CHLORIDE 0.9% 1,000 ML IV SCH (21:12)
[2019-06-10] MEDS: predniSONE 20 MG TAB PO SCH (21:15)
--- NOTE | 2019-06-11 01:19 | PN ---
PROGRESS NOTE 79-year-old white female, crying, very aggravated, stressed out, scared about her entire health care thing including possible long-term dialysis. She qualified for oxygen today, we are starting that up. She refused a wheelchair to go home in. She has got a walker here. We are going to switch her IV prednisone to oral prednisone today. Remains on Lasix 40 b.i.d. Psych: She is very anxious, crying, complaining about everything. Respiratory rate 16-20, pulse 60-68, temp 98.4, blood pressure 160s/68, O2 97% on 2 L. Cardiovascular: S1, S2. Lungs show scattered wheeze x4, mild. Abdomen is soft, nontender. Extremities show generalized edema, 2+ stasis edema. She has ANAI hose on. ASSESSMENT: 1. Severe anxiety and adjustment disorder. 2. End-stage renal disease versus stage IV. 3. Hypertension acceleration. 4. Diastolic congestive heart failure. 5. Chronic obstructive pulmonary disease. Home oxygen will be given, Lasix is 80 b.i.d. prednisone will be switched to 20 b.i.d. orally, PT/OT, possible discharge home as soon as family can arrange everything at home, possibly tomorrow. Set up dialysis. She has a dialysis catheter temporary for which she will get temporary dialysis for 3 times a week and then possibly stop dialysis if not needed anymore. She states the renal doctor told her dialysis is permanent today, although this note does not reflect this. She wants to talk to him again before discharge. She is very anxious and crying. MMCINDYL / IJN: [id number] /
[2019-06-11 06:51] LABS: Glucose,Whole Blood 260 mg/dL (75-99)
[2019-06-11 06:57] LABS: Basophils # (A) 0.1 k/uL (0-0.2); Basophils % (A) 1 %; Eosinophils % (A) 0 %; HCT 24.6 % (34.0-46.0); Lymphocytes # (A) 0.8 k/uL (1.0-4.8); Lymphocytes % (A) 9 %; MCH 28.8 pg (25.0-35.0); MCHC 32.4 g/dL (31.0-37.0); MCV 88.8 fL (80.0-100.0); Mean Platelet Volume 8.4; Monocytes # (A) 0.5 k/uL (0-1.0); Monocytes % (A) 5 %; Neutrophils # (A) 7.3 k/uL (1.3-7.7); Neutrophils % (A) 83 %; Platelet Count 283 k/uL (150-450); RBC 2.77 m/uL (3.80-5.40); RDW 15.4 % (11.5-15.5); WBC 8.8 k/uL (3.8-10.6)
[2019-06-11 07:07] LABS: Calcium 8.3 mg/dL (8.4-10.2); Potassium 4.7 mmol/L (3.5-5.1); Total Bilirubin 0.5 mg/dL (0.2-1.3); Total Protein 5.2 g/dL (6.3-8.2)
[2019-06-11] MEDS: hydrALAZINE HCL 25 MG TAB PO SCH (07:47)
[2019-06-11] MEDS: predniSONE 20 MG TAB PO SCH (07:47)
[2019-06-11] MEDS: ATENOLOL 25 MG TAB PO SCH (07:47)
[2019-06-11] MEDS: ATORVASTATIN 40 MG TAB PO SCH (07:47)
[2019-06-11] MEDS: PANTOPRAZOLE 40 MG TABLET PO SCH (07:47)
[2019-06-11] MEDS: INSULIN ASPART (NovoLOG) 100 UNIT/ML VIAL SQ SCH ×2 (07:48)
[2019-06-11] MEDS: FUROSEMIDE 80 MG TAB PO SCH (07:48)
[2019-06-11] MEDS: ISOSORBIDE MONONITRATE ER 30 MG TAB.ER.24H PO SCH (07:48)
[2019-06-11] MEDS: INSULIN DETEMIR (LEVEMIR) 100 UNIT/ML SYR SQ SCH (07:49)
[2019-06-11] MEDS: IPRATROPIUM-ALBUTEROL 3 ML NEB INHALATION SCH (08:15)
[2019-06-11] MEDS: BUDESONIDE 0.5 MG/2 ML NEBU INHALATION SCH (08:16)
[2019-06-11 08:31] VITALS: BP 147/78; RESP 16; TEMP 98.4
[2019-06-11 08:35] VITALS: PULSE 66
--- NOTE | 2019-06-11 09:52 | P.PN ---
Subjective Patient is seen in follow-up for acute kidney injury on chronic kidney disease. She is currently hemodialysis dependent. Still gets short of breath intermittently. No changes overnight. Hemodynamically stable. Vital signs are stable. General: The patient appeared well nourished and normally developed. HEENT: Head exam is unremarkable. Neck is without jugular venous distension. LUNGS: Lungs are clear to auscultation and percussion. Breath sounds decreased. HEART: Rate and Rhythm are regular. First and second heart sounds normal. No murmurs, rubs or gallops. ABDOMEN: Abdominal exam reveals normal bowel sounds. Non-tender and non-disten ded. No evidence of peritonitis. EXTREMITITES: 1+ edema. Objective - Vital Signs Vital signs: Vital Signs Temp 98.4 F 06/11/19 07:00 Pulse 66 06/11/19 08:34 Resp 16 06/11/19 07:00 BP 147/78 06/11/19 07:00 Pulse Ox 97 06/11/19 07:00 Intake & Output 06/10/19 06/11/19 06/11/19 18:59 06:59 18:59 Intake Total 240 Output Total 3400 Balance -3400 240 Weight 90 kg Intake: Intake, IV Titration 40 Amount Sodium Chloride 0.9% 1, 40 000 ml @ 20 mls/hr IV . Q24H [facility] Rx#:[id number] Oral 200 Output: Urine 400 Hemodialysis 3000 Other: Voiding Method Bedside Commode - Labs CBC & Chem 7: 06/11/19 06:01 06/11/19 06:01 Labs: Abnormal Lab Results - Last 24 Hours (Table) 06/10/19 06/10/19 06/10/19 Range/Units 11:33 16:28 20:11 RBC (3.80-5.40) m/uL Hgb (11.4-16.0) gm/dL Hct (34.0-46.0) % Lymphocytes # (1.0-4.8) k/uL Sodium (137-145) mmol/L Chloride (98-107) mmol/L BUN (7-17) mg/dL Creatinine (0.52-1.04) mg/dL Glucose (74-99) mg/dL POC Glucose (mg/dL) 209 H 174 H 275 H (75-99) mg/dL Calcium (8.4-10.2) mg/dL Total Protein (6.3-8.2) g/dL Albumin (3.5-5.0) g/dL 06/11/19 06/11/19 06/11/19 Range/Units 06:01 06:01 06:49 RBC 2.77 L (3.80-5.40) m/uL Hgb 8.0 L (11.4-16.0) gm/dL Hct 24.6 L (34.0-46.0) % Lymphocytes # 0.8 L (1.0-4.8) k/uL Sodium 130 L (137-145) mmol/L Chloride 95 L (98-107) mmol/L BUN 68 H (7-17) mg/dL Creatinine 2.83 H (0.52-1.04) mg/dL Glucose 224 H (74-99) mg/dL POC Glucose (mg/dL) 260 H (75-99) mg/dL Calcium 8.3 L (8.4-10.2) mg/dL Total Protein 5.2 L (6.3-8.2) g/dL Albumin 3.0 L (3.5-5.0) g/dL Assessment and Plan Plan: Assessment: 1. Acute kidney injury mostly prerenal secondary to cardiorenal syndrome. Currently hemodialysis dependent. 2. Chronic kidney disease stage III with baseline creatinine in the range of 1.5-1.7 in April 2016 to April 2017. However this year her renal function has been worse with creatinine near 2.5. There is concern for progression of u nderlying chronic kidney disease. Ultrasound from earlier this month revealed small sized kidneys without any hydronephrosis. UA from earlier this month revealed trace proteinuria, otherwise benign. 3. Acute on chronic diastolic CHF with moderate aortic stenosis. 4. Volume overload with pulmonary edema. Improving with ultrafiltration. 5. Hyponatremia, currently hypervolemic. 6. Hypertension with chronic kidney disease. Controlled. 7. History of COPD. 8. Diabetes mellitus. 9. Anemia of chronic kidney disease. Status post IV iron. Maintained on Aranesp. Plan: Hemodialysis tomorrow. She will be maintained on a Wednesday schedule outpatient. Monitor for renal recovery outpatient. Maintain oral Lasix. Stable for discharge from nephrology standpoint.
== END 2019-06-11 10:57 | disposition home health service (06) | DRG 291 ==
LOC: 6NMEDSUR 12:48 → 2SICU 05-29 11:45 → 3SCARD 06-02 00:09 → 4SSUR 06-07 21:20
PROVIDERS: ADMIT Family Medicine; ATTEND Family Medicine
PROC: 0JH63XZ Insertion of Tunneled Vascular Access Device into Chest Subcutaneous Tissue and Fascia, Percutaneous Approach (ICD-10-PCS; principal; 2019-06-06 14:35)
PROC: 05HM33Z Insertion of Infusion Device into Right Internal Jugular Vein, Percutaneous Approach (ICD-10-PCS; principal; 2019-06-06 14:35)
PROC: 5A1D70Z Performance of Urinary Filtration, Intermittent, Less than 6 Hours Per Day (ICD-10-PCS; 2019-06-07)
DX: I13.0 Hypertensive heart and chronic kidney disease with heart failure and stage 1 through stage 4 chronic kidney disease, or unspecified chronic kidney disease (principal); I50.33 Acute on chronic diastolic (congestive) heart failure; J96.21 Acute and chronic respiratory failure with hypoxia; E87.0 Hyperosmolality and hypernatremia; E87.1 Hypo-osmolality and hyponatremia; E87.2 Acidosis; J44.0 Chronic obstructive pulmonary disease with (acute) lower respiratory infection; J44.1 Chronic obstructive pulmonary disease with (acute) exacerbation; J98.11 Atelectasis; N17.9 Acute kidney failure, unspecified; N18.4 Chronic kidney disease, stage 4 (severe); I15.8 Other secondary hypertension; I27.29 Other secondary pulmonary hypertension; I27.81 Cor pulmonale (chronic); I08.3 Combined rheumatic disorders of mitral, aortic and tricuspid valves; D50.9 Iron deficiency anemia, unspecified; D63.1 Anemia in chronic kidney disease; E11.22 Type 2 diabetes mellitus with diabetic chronic kidney disease; E11.65 Type 2 diabetes mellitus with hyperglycemia; E78.5 Hyperlipidemia, unspecified; E86.1 Hypovolemia; F17.210 Nicotine dependence, cigarettes, uncomplicated; R79.89 Other specified abnormal findings of blood chemistry; F43.22 Adjustment disorder with anxiety; I50.82 Biventricular heart failure; I65.29 Occlusion and stenosis of unspecified carotid artery; J20.9 Acute bronchitis, unspecified; J45.20 Mild intermittent asthma, uncomplicated; K57.90 Diverticulosis of intestine, part unspecified, without perforation or abscess without bleeding; M19.90 Unspecified osteoarthritis, unspecified site; T38.0X5A Adverse effect of glucocorticoids and synthetic analogues, initial encounter; T50.2X5A Adverse effect of carbonic-anhydrase inhibitors, benzothiadiazides and other diuretics, initial encounter; Z79.52 Long term (current) use of systemic steroids; Z79.84 Long term (current) use of oral hypoglycemic drugs; Z79.899 Other long term (current) drug therapy; Z83.3 Family history of diabetes mellitus; Z90.710 Acquired absence of both cervix and uterus; Z91.19 Patient's noncompliance with other medical treatment and regimen; Z91.120 Patient's intentional underdosing of medication regimen due to financial hardship; Z99.2 Dependence on renal dialysis; Z84.1 Family history of disorders of kidney and ureter; Z90.49 Acquired absence of other specified parts of digestive tract; Z98.51 Tubal ligation status; Z60.2 Problems related to living alone; Z98.42 Cataract extraction status, left eye; Z98.41 Cataract extraction status, right eye; Z88.5 Allergy status to narcotic agent; Z88.0 Allergy status to penicillin; Z88.2 Allergy status to sulfonamides; Z88.7 Allergy status to serum and vaccine; Z88.8 Allergy status to other drugs, medicaments and biological substances; Z88.1 Allergy status to other antibiotic agents; Z91.041 Radiographic dye allergy status; Z91.040 Latex allergy status; Z88.6 Allergy status to analgesic agent; Z87.19 Personal history of other diseases of the digestive system
CPT/HCPCS: 36558; 71045; 71046; 76937; 77001; 80048; 80053; 81001; 82728; 83540; 83550; 83735; 83880; 84484; 85025; 85027; 85379; 86704; 86706; 87340; 90935; 93005; 94640; 94760

== ENCOUNTER 2019-06-25 14:17 | Inpatient (IN) | payer MEDICARE, OTHER ==
[2019-06-25] MEDS ORDERED: NITROGLYCERIN OINT 1 INCH/GM PACKET TOPICAL STA (14:56)
--- NOTE | 2019-06-25 14:59 | ED ---
General Adult HPI - General Chief complaint: Chest Pain Stated complaint: Chest Time Seen by Provider: 06/25/19 14:32 Source: patient, family, RN notes reviewed Mode of arrival: wheelchair Limitations: no limitations - History of Present Illness Initial comments: Patient is a pleasant 79-year-old female presenting to the emergency department with family with complaints of chest discomfort. Onset of symptoms was this morning. Symptoms have been waxing and waning. Discomfort is mid chest and described as pressure. No radiation. Patient does feel a little bit short of breath at times. No nausea. Patient was a little bit sweaty earlier. No his tory of similar symptoms previously. Patient does have history of end-stage renal disease and is on dialysis. Patient also has history of congestive heart failure. - Related Data Home Medications Medication Instructions Recorded Confirmed Atorvastatin [Lipitor] 40 mg PO DAILY 05/04/19 06/25/19 Semaglutide [Ozempic] 0.25 mg SQ WE@1100 06/25/19 06/25/19 Previous Rx's Medication Instructions Recorded Atenolol [Tenormin] 25 mg PO BID #30 tab 05/11/19 Pantoprazole [Protonix] 40 mg PO AC-BRKFST #30 tablet.dr 05/11/19 Albuterol Nebulized [Ventolin 2.5 mg INHALATION RT-TID #0 06/09/19 Nebulized] Furosemide [Lasix] 80 mg PO BID #60 tablet 06/09/19 Isosorbide Mononitrate ER [Imdur] 30 mg PO DAILY #30 tab.er.24h 06/09/19 hydrALAZINE HCL [Apresoline] 25 mg PO BID #60 tab 06/09/19 Allergies Allergy/AdvReac Type Severity Reaction Status Date / Time Penicillins Allergy Severe Rash/Hives Verified 06/25/19 15:45 codeine Allergy Rash/Hives Verified 06/25/19 15:45 diphenhydramine HCl Allergy Swelling Verified 06/25/19 15:45 [From Benadryl] erythromycin base Allergy Rash/Hives Verified 06/25/19 15:45 Iodinated Contrast Media Allergy Rash/Hives Verified 06/25/19 15:45 [Iodinated Contrast Media - IV Dye] iodine Allergy Rash/Hives Verified 06/25/19 15:45 Sulfa (Sulfonamide Allergy Rash/Hives Verified 06/25/19 15:45 Antibiotics) Tetanus Vaccines and Toxoid Allergy Unknown Verified 06/25/19 15:45 [Tetanus Vaccines & Toxoid] Tetracyclines Allergy Rash/Hives Verified 06/25/19 15:45 aspirin AdvReac GI Bleed Verified 06/25/19 15:45 Review of Systems ROS Statement: Those systems with pertinent positive or pertinent negative responses have been documented in the HPI. ROS Other: All systems not noted in ROS Statement are negative. Constitutional: Denies: fever Eyes: Denies: eye pain ENT: Denies: ear pain Respiratory: Reports: as per HPI Cardiovascular: Reports: as per HPI, chest pain Endocrine: Denies: fatigue Gastrointestinal: Denies: abdominal pain Genitourinary: Denies: dysuria Musculoskeletal: Denies: back pain Skin: Denies: rash Neurological: Denies: weakness Past Medical History Past Medical History: COPD, Diabetes Mellitus, Hyperlipidemia, Hypertension, Osteoarthritis (OA), Pneumonia, Renal Disease Additional Past Medical History / Comment(s): COPD, NIDDM type II, diverticulitis, lower GI bleed, bowel obstructions with surgery, ckd stage 3 History of Any Multi-Drug Resistant Organisms: None Reported Past Surgical History: Cholecystectomy, Hysterectomy, Tonsillectomy, Tubal Ligation Additional Past Surgical History / Comment(s): EGDs/colonoscopies, bowel resections due to obstruction x2, bilateral cataracts removed. Past Anesthesia/Blood Transfusion Reactions: No Reported Reaction Past Psychological History: No Psychological Hx Reported Smoking Status: Never smoker Past Alcohol Use History: None Reported Past Drug Use History: None Reported - Past Family History Mother Family Medical History: No Reported History Additional Family Medical History / Comment(s): Mother was healthy and lived to be 79yrs old. Brother(s) Family Medical History: Diabetes Mellitus General Exam Limitations: no limitations General appearance: alert, in no apparent distress Head exam: Present: normocephalic Eye exam: Present: normal appearance Neck exam: Present: normal inspection Respiratory exam: Present: normal lung sounds bilaterally Cardiovascular Exam: Present: irregular rhythm Expanded Peripheral pulses: 2+: Radial (R), Radial (L), Dorsalis Pedis (R), Dorsalis Pedis (L) GI/Abdominal exam: Present: soft. Absent: distended, tenderness Extremities exam: Present: normal inspection. Absent: calf tenderness Neurological exam: Present: alert Psychiatric exam: Present: normal affect, normal mood Skin exam: Present: normal color Course Vital Signs 06/25/19 06/25/19 14:18 15:00 Temperature 98.9 F Pulse Rate 108 H 93 Respiratory 18 18 Rate Blood Pressure 126/66 109/77 O2 Sat by Pulse 94 L 94 L Oximetry EKG Findings - EKG Comments: EKG Findings:: Atrial flutter with a rate of 110. QRS 72. QT 348. QTC 470. Normal axis. Inferior and lateral T wave inversion. Medical Decision Making - Medical Decision Making Patient reevaluated and resting comfortably in bed. Heart rate 103. Patient and family updated. Case also discussed with Dr. Sarkar, who will admit his patient. Consults will be placed for nephrology and cardiology. - Lab Data Result diagrams: 06/25/19 14:48 06/25/19 14:48 Lab Results 06/25/19 06/25/19 06/25/19 Range/Units 14:48 14:48 14:48 WBC 5.8 (3.8-10.6) k/uL RBC 2.86 L (3.80-5.40) m/uL Hgb 8.7 L (11.4-16.0) gm/dL Hct 26.2 L (34.0-46.0) % MCV 91.6 (80.0-100.0) fL MCH 30.5 (25.0-35.0) pg MCHC 33.3 (31.0-37.0) g/dL RDW 17.3 H (11.5-15.5) % Plt Count 155 (150-450) k/uL Neutrophils % 77 % Lymphocytes % 14 % Monocytes % 4 % Eosinophils % 3 % Basophils % 0 % Neutrophils # 4.5 (1.3-7.7) k/uL Lymphocytes # 0.8 L (1.0-4.8) k/uL Monocytes # 0.2 (0-1.0) k/uL Eosinophils # 0.2 (0-0.7) k/uL Basophils # 0.0 (0-0.2) k/uL Anisocytosis Slight PT 10.9 (9.0-12.0) sec INR 1.1 (<1.2) APTT 21.6 L (22.0-30.0) sec Sodium 128 L (137-145) mmol/L Potassium 2.9 L (3.5-5.1) mmol/L Chloride 89 L (98-107) mmol/L Carbon Dioxide 28 (22-30) mmol/L Anion Gap 11 mmol/L BUN 39 H (7-17) mg/dL Creatinine 3.07 H (0.52-1.04) mg/dL Est GFR (CKD-EPI)AfAm 16 (>60 ml/min/1.73 sqM) Est GFR (CKD-EPI)NonAf 14 (>60 ml/min/1.73 sqM) Glucose 423 H (74-99) mg/dL Calcium 7.3 L (8.4-10.2) mg/dL Magnesium 1.4 L (1.6-2.3) mg/dL Total Bilirubin 1.0 (0.2-1.3) mg/dL AST 21 (14-36) U/L ALT 31 (4-34) U/L Alkaline Phosphatase 75 (38-126) U/L Troponin I (0.000-0.034) ng/mL NT-Pro-B Natriuret Pep pg/mL Total Protein 5.4 L (6.3-8.2) g/dL Albumin 3.3 L (3.5-5.0) g/dL 06/25/19 06/25/19 Range/Units 14:48 14:48 WBC (3.8-10.6) k/uL RBC (3.80-5.40) m/uL Hgb (11.4-16.0) gm/dL Hct (34.0-46.0) % MCV (80.0-100.0) fL MCH (25.0-35.0) pg MCHC (31.0-37.0) g/dL RDW (11.5-15.5) % Plt Count (150-450) k/uL Neutrophils % % Lymphocytes % % Monocytes % % Eosinophils % % Basophils % % Neutrophils # (1.3-7.7) k/uL Lymphocytes # (1.0-4.8) k/uL Monocytes # (0-1.0) k/uL Eosinophils # (0-0.7) k/uL Basophils # (0-0.2) k/uL Anisocytosis PT (9.0-12.0) sec INR (<1.2) APTT (22.0-30.0) sec Sodium (137-145) mmol/L Potassium (3.5-5.1) mmol/L Chloride (98-107) mmol/L Carbon Dioxide (22-30) mmol/L Anion Gap mmol/L BUN (7-17) mg/dL Creatinine (0.52-1.04) mg/dL Est GFR (CKD-EPI)AfAm (>60 ml/min/1.73 sqM) Est GFR (CKD-EPI)NonAf (>60 ml/min/1.73 sqM) Glucose (74-99) mg/dL Calcium (8.4-10.2) mg/dL Magnesium (1.6-2.3) mg/dL Total Bilirubin (0.2-1.3) mg/dL AST (14-36) U/L ALT (4-34) U/L Alkaline Phosphatase (38-126) U/L Troponin I 0.061 H* (0.000-0.034) ng/mL NT-Pro-B Natriuret Pep 28803 pg/mL Total Protein (6.3-8.2) g/dL Albumin (3.5-5.0) g/dL - Radiology Data Radiology results: image reviewed (Chest x-ray shows cardiomegaly without acute process.) Critical Care Time Critical Care Time: Yes Total Critical Care Time: 33 Disposition Clinical Impression: Atrial flutter, Chest pain Disposition: ADMITTED IP TO THIS [facility] Is patient prescribed a controlled substance at d/c from ED?: No Referrals: Alexander Sarkar MD [Primary Care Provider] - 1-2 days Decision Time: 16:27
[2019-06-25 15:15] LABS: Anisocytosis Slight; Basophils % (A) 0 %; Eosinophils # (A) 0.2 k/uL (0-0.7); Eosinophils % (A) 3 %; HCT 26.2 % (34.0-46.0); HGB 8.7 gm/dL (11.4-16.0); Lymphocytes # (A) 0.8 k/uL (1.0-4.8); Lymphocytes % (A) 14 %; MCH 30.5 pg (25.0-35.0); MCHC 33.3 g/dL (31.0-37.0); MCV 91.6 fL (80.0-100.0); Mean Platelet Volume 8.5; Monocytes # (A) 0.2 k/uL (0-1.0); Monocytes % (A) 4 %; Neutrophils # (A) 4.5 k/uL (1.3-7.7); Neutrophils % (A) 77 %; Platelet Count 155 k/uL (150-450); RBC 2.86 m/uL (3.80-5.40); RDW 17.3 % (11.5-15.5); WBC 5.8 k/uL (3.8-10.6)
[2019-06-25 15:26] LABS: Albumin 3.3 g/dL (3.5-5.0); Calcium 7.3 mg/dL (8.4-10.2); Magnesium 1.4 mg/dL (1.6-2.3); Potassium 2.9 mmol/L (3.5-5.1); Total Protein 5.4 g/dL (6.3-8.2)
--- NOTE | 2019-06-25 15:30 | XR ---
EXAMINATION TYPE: XR chest 2V DATE OF EXAM: 06/25/2019 COMPARISON: Chest x-ray June 06, 2009. HISTORY: Chest pain. TECHNIQUE: Frontal and lateral views of the chest are obtained. FINDINGS: Improved inspiration on current study. Stable right internal jugular dialysis catheter. Th ere is persistent cardiomegaly with improved aeration in the bases. No persistent pleural effusion on current study. The osseous structures remain demineralized. Cholecystectomy clips noted on lateral view. IMPRESSION: Cardiomegaly without acute pulmonary process on current study.
[2019-06-25 15:32] LABS: INR 1.1 (<1.2); Prothrombin Time 10.9 sec (9.0-12.0)
[2019-06-25 15:33] LABS: Partial Thromboplastin Time 21.6 sec (22.0-30.0)
[2019-06-25] MEDS ORDERED: POTASSIUM CHLORIDE ER 20 MEQ TAB.ER PO STA (16:02)
[2019-06-25] MEDS ORDERED: MAGNESIUM OXIDE 400 MG TAB PO STA (16:02)
[2019-06-25] MEDS ORDERED: HEPARIN SODIUM,PORCINE 5,000 UNIT/ML 1 ML VIAL IV ONE (16:28)
[2019-06-25] MEDS ORDERED: NITROGLYCERIN SL TABS 0.4 MG TAB SUBLINGUAL PRN (16:28)
[2019-06-25] MEDS ORDERED: HEPARIN SODIUM,PORCINE 5,000 UNIT/ML 1 ML VIAL IV PRN (16:34)
[2019-06-25] MEDS ORDERED: ASPIRIN 81 MG PO STA (16:34)
[2019-06-25] MEDS ORDERED: HEPARIN SOD,PORK IN 0.45% NACL 25,000 UNIT in 0.45% NACL 1 250ML.BAG IV SCH (16:45)
--- NOTE | 2019-06-25 20:04 | HP ---
HISTORY AND PHYSICAL A 79-year-old white female coming in with chest discomfort started this morning, waxing and waning. She was found to have new onset atrial fibrillation and atrial flutter. She was admitted to hospital. Cardiology consult and pulmonary consult. She was also found to have severely low magnesium and potassium levels. She has been getting dialysis 3 times a week as an outpatient. HOME MEDICATIONS: See list includin. Hydralazine 25 b.i.d. 2. Imdur 30 mg daily. 3. Lasix 80 b.i.d. 4. Albuterol updraft t.i.d. 5. Tenormin 25 b.i.d. 6. Protonix 40 mg daily. ALLERGIES: PENICILLIN, CODEINE, BENADRYL, ERYTHROMYCIN, IODINE, SULFA, TETANUS TOXOID, TETRACYCLINE, ASPIRIN. REVIEW OF SYMPTOMS: 14-point review of systems as mentioned. Pleuritic-type chest pain with deep breathing. Otherwise, fourteen-point review of systems negative except for mentioned in HPI. PAST MEDICAL HISTORY: COPD, diabetes mellitus, dyslipidemia, diastolic heart failure, hypertension, osteoarthritis, prior pneumonia, chronic renal disease, diverticulosis, history of GI bleed, bowel obstruction with surgery, chronic kidney disease stage 3. PAST SURGICAL HISTORY: Cholecystectomy, hysterectomy, tonsillectomy, tubal ligation. She has had a bowel resection due to obstruction x2, EGD, colonoscopies. SOCIAL HISTORY: No smoking, no alcohol. No illicit drugs. FAMILY HISTORY: Mother lived to 79, brother with diabetes mellitus. PHYSICAL EXAM: Vital signs reviewed. Psych: She appears anxious and nervous. CARDIOVASCULAR: Irregular irregularly rhythm. LUNGS shows mild wheeze at the bases. EXTREMITIES: 2 to 3+ pedal edema bilaterally. Absent calf tenderness. PSYCH: Fair mood and affect except for anxiety and agitation. SKIN: She has some pallor and dry mucous membranes. VITAL SIGNS: Temp 98.9, pulse rate is 93-108, respiratory 18-22, blood pressure 109- 126/60s to 70s, O2 94%. EKG shows atrial flutter, inferior lateral ST-T wave inversion. LABORATORY DATA: Hemoglobin is 8.7, white count 5.8. Sodium 128, potassium 2.9, BUN 39, creatinine 3.07. ASSESSMENT: 1. New onset atrial fibrillation. 2. Elevated troponin. 3. Elevated BNP. 4. Diastolic heart failure. 5. Chronic renal disease. 6. End-stage renal disease. 7. Atrial flutter, rapid ventricular response. Cardiology, Pulmonary consult. Replace potassium, magnesium for low potassium, low magnesium. Continue current medications from home. Potassium replacement protocol. Prognosis guarded. MMODL / ENEN: [id number] /
[2019-06-25] MEDS: ALBUTEROL NEBULIZED 2.5 MG/3 ML INHALATION SCH (20:12)
[2019-06-25 20:40] LABS: Glucose,Whole Blood 411 mg/dL (75-99)
[2019-06-25] MEDS: NITROGLYCERIN OINT 1 INCH/GM PACKET TOPICAL SCH (20:49)
[2019-06-25] MEDS: FUROSEMIDE 80 MG TAB PO SCH (20:49)
[2019-06-25] MEDS: INSULIN ASPART (NovoLOG) 100 UNIT/ML VIAL SQ SCH (20:49)
[2019-06-25] MEDS: POTASSIUM CHLORIDE ER 20 MEQ TAB.ER PO SCH (20:49)
[2019-06-25] MEDS: ATENOLOL 25 MG TAB PO SCH (20:49)
[2019-06-25] MEDS: hydrALAZINE HCL 25 MG TAB PO SCH (20:49)
[2019-06-26] MEDS: NITROGLYCERIN OINT 1 INCH/GM PACKET TOPICAL SCH ×2 (05:31→12:15)
[2019-06-26 06:16] LABS: Glucose,Whole Blood 280 mg/dL (75-99)
[2019-06-26] MEDS: PANTOPRAZOLE 40 MG TABLET PO SCH (06:35)
[2019-06-26] MEDS: INSULIN ASPART (NovoLOG) 100 UNIT/ML VIAL SQ SCH ×4 (06:35→20:35)
[2019-06-26 06:41] LABS: Anisocytosis Slight; Basophils % (A) 0 %; Eosinophils # (A) 0.2 k/uL (0-0.7); Eosinophils % (A) 4 %; HCT 25.4 % (34.0-46.0); HGB 8.2 gm/dL (11.4-16.0); Lymphocytes # (A) 0.8 k/uL (1.0-4.8); Lymphocytes % (A) 18 %; MCH 29.9 pg (25.0-35.0); MCHC 32.5 g/dL (31.0-37.0); MCV 92.2 fL (80.0-100.0); Mean Platelet Volume 8.2; Monocytes # (A) 0.2 k/uL (0-1.0); Monocytes % (A) 5 %; Neutrophils # (A) 3.2 k/uL (1.3-7.7); Neutrophils % (A) 71 %; Platelet Count 149 k/uL (150-450); RBC 2.75 m/uL (3.80-5.40); RDW 17.6 % (11.5-15.5); WBC 4.5 k/uL (3.8-10.6)
[2019-06-26 06:50] LABS: Calcium 7.1 mg/dL (8.4-10.2); Magnesium 1.5 mg/dL (1.6-2.3); Potassium 3.5 mmol/L (3.5-5.1); Total Bilirubin 0.6 mg/dL (0.2-1.3); Total Protein 5.1 g/dL (6.3-8.2)
[2019-06-26] MEDS: FUROSEMIDE 80 MG TAB PO SCH ×2 (08:20→20:35)
[2019-06-26] MEDS: hydrALAZINE HCL 25 MG TAB PO SCH ×2 (08:20→20:35)
[2019-06-26] MEDS: ATENOLOL 25 MG TAB PO SCH (08:20)
[2019-06-26] MEDS: POTASSIUM CHLORIDE ER 20 MEQ TAB.ER PO SCH ×2 (08:21→20:35)
[2019-06-26] MEDS: ATORVASTATIN 40 MG TAB PO SCH (08:21)
[2019-06-26] MEDS: ALBUTEROL NEBULIZED 2.5 MG/3 ML INHALATION SCH ×3 (08:53→20:25)
[2019-06-26] MEDS ORDERED: ASPIRIN 325 MG TAB PO SCH (09:00)
[2019-06-26] MEDS ORDERED: ISOSORBIDE MONONITRATE ER 30 MG TAB.ER.24H PO SCH (09:00)
--- NOTE | 2019-06-26 10:01 | P.NPCON ---
History of Present Illness - Reason for Consult end stage renal disease - History of Present Illness Reason for consultation: End-stage renal disease History of present illness: Patient is a 79-year-old female seen in renal consultation for end-stage renal disease. She is maintained on hemodialysis on Wednesday schedule. Patient was started on dialysis within the last 1 month and has been tolerating it well. Patient's edema has significantly improved. She currently denies any shortness of breath. Patient came to the hospital due to chest pain which radiates from the right side to her left. She describes the pain as sharp. She also complains of fluttering in her chest. No vomiting or diarrhea. Hemodynamically stable. She was noted to be in A. fib and is currently maintained on IV heparin. Cardiology has been consulted. Vital signs are stable. General: The patient appeared well nourished and normally developed. HEENT: Head exam is unremarkable. Neck is without jugular venous distension. LUNGS: Lungs are clear to auscultation and percussion. Breath sounds decreased. HEART: Rate and Rhythm are regular. First and second heart sounds normal. No murmurs, rubs or gallops. ABDOMEN: Abdominal exam reveals normal bowel sounds. Non-tender and non- distended. No evidence of peritonitis. EXTREMITITES: No clubbing, cyanosis, or edema. Past Medical History Past Medical History: COPD, Diabetes Mellitus, Hyperlipidemia, Hypertension, Osteoarthritis (OA), Pneumonia, Renal Disease Additional Past Medical History / Comment(s): COPD, NIDDM type II, diverticulitis, lower GI bleed, bowel obstructions with surgery, ckd stage 3 History of Any Multi-Drug Resistant Organisms: None Reported Past Surgical History: Cholecystectomy, Hysterectomy, Tonsillectomy, Tubal Ligation Additional Past Surgical History / Comment(s): EGDs/colonoscopies, bowel resections due to obstruction x2, bilateral cataracts removed. Past Anesthesia/Blood Transfusion Reactions: No Reported Reaction Past Psychological History: No Psychological Hx Reported Additional Psychological History / Comment(s): Pt resides alone in an apartment. She uses no assistive device. She drives. Smoking Status: Never smoker Past Alcohol Use History: None Reported Past Drug Use History: None Reported - Past Family History Mother Family Medical History: No Reported History Additional Family Medical History / Comment(s): Mother was healthy and lived to be 79yrs old. Brother(s) Family Medical History: Diabetes Mellitus Medications and Allergies Home Medications Medication Instructions Recorded Confirmed Type Atorvastatin [Lipitor] 40 mg PO DAILY 05/04/19 06/25/19 History Atenolol [Tenormin] 25 mg PO BID #30 tab 05/11/19 06/25/19 Rx Pantoprazole [Protonix] 40 mg PO AC-BRKFST #30 tablet.dr 05/11/19 06/25/19 Rx Albuterol Nebulized [Ventolin 2.5 mg INHALATION RT-TID #0 06/09/19 06/25/19 Rx Nebulized] Furosemide [Lasix] 80 mg PO BID #60 tablet 06/09/19 06/25/19 Rx Isosorbide Mononitrate ER [Imdur] 30 mg PO DAILY #30 tab.er.24h 06/09/1905/15 Rx hydrALAZINE HCL [Apresoline] 25 mg PO BID #60 tab 06/09/19 06/25/19 Rx Semaglutide [Ozempic] 0.25 mg SQ WE@1100 06/25/19 06/25/19 History Allergies Allergy/AdvReac Type Severity Reaction Status Date / Time Penicillins Allergy Severe Rash/Hives Verified 06/25/19 15:45 codeine Allergy Rash/Hives Verified 06/25/19 15:45 diphenhydramine HCl Allergy Swelling Verified 06/25/19 15:45 [From Benadryl] erythromycin base Allergy Rash/Hives Verified 06/25/19 15:45 Iodinated Contrast Media Allergy Rash/Hives Verified 06/25/19 15:45 [Iodinated Contrast Media - IV Dye] iodine Allergy Rash/Hives Verified 06/25/19 15:45 Sulfa (Sulfonamide Allergy Rash/Hives Verified 06/25/19 15:45 Antibiotics) Tetanus Vaccines and Toxoid Allergy Unknown Verified 06/25/19 15:45 [Tetanus Vaccines & Toxoid] Tetracyclines Allergy Rash/Hives Verified 06/25/19 15:45 aspirin AdvReac GI Bleed Verified 06/25/19 15:45 Physical Exam Vitals: Vital Signs Temp Pulse Pulse Resp BP BP Pulse Ox 06/26/19 09:05 84 06/26/19 08:56 78 95 06/26/19 08:00 98.6 F 98 16 119/76 93 L 06/26/19 02:49 99.3 F 99 18 131/86 94 L 06/26/19 00:00 98.7 F 95 18 137/77 95 06/25/19 20:21 92 06/25/19 20:12 96 06/25/19 20:00 99 F 102 H 18 120/64 95 06/25/19 17:00 94 18 122/95 94 L 06/25/19 15:00 93 18 109/77 94 L 06/25/19 14:18 98.9 F 108 H 18 126/66 94 L Intake and Output 06/25/19 06/26/19 06/26/19 22:59 06:59 14:59 Intake Total 540 240 129.177 Output Total 200 Balance 540 40 129.177 Intake: Intake, IV Titration 129.177 Amount Heparin Sod,Pork in 0.45% 129.177 NaCl 25,000 unit In 0.45 % NaCl 1 250ml.bag @ 12 UNITS/KG/HR 8.981 mls/hr IV .Q24H [facility] Rx#: [id number] Oral 540 240 Output: Urine 200 Other: # Voids 1 Weight 74.843 kg 76.3 kg Results - Lab Results Most recent lab results Calcium 7.1 mg/dL (8.4-10.2) L 06/26/19 06:08 Magnesium 1.5 mg/dL (1.6-2.3) L 06/26/19 06:08 06/26/19 06:08 06/26/19 06:08 Assessment and Plan Plan: Assessment: 1. End-stage renal disease maintained on hemodialysis on Wednesday y schedule. 2. A. fib with RVR. Currently rate controlled. Maintained on IV heparin. 3. Hypertension with chronic kidney disease. Controlled. 4. Hypokalemia secondary to diuresis. Status post placement. Better. 5. Hypomagnesemia secondary to diuresis. 6. Chronic diastolic CHF with moderate pulmonary hypertension. 7. Anemia of chronic kidney disease. Rule out iron deficiency. Plan: Hemodialysis today with goal 1-1/2-2 L of hydration. Replace magnesium. 2 g IV today. Maintain potassium supplementation. Maintain oral Lasix. Check iron studies. Add Juni. Thank you for the consultation. I will continue to follow the patient with you during her hospital stay.
[2019-06-26] MEDS: MAGNESIUM SULFATE-D5W PMX 1 GM in DEXTROSE/WATER 1 100ML.BAG IVPB SCH ×2 (10:04→12:03)
[2019-06-26 11:49] LABS: Glucose,Whole Blood 258 mg/dL (75-99)
--- NOTE | 2019-06-26 11:58 | P.CRDCN ---
History of Present Illness Consult date: 06/26/19 Requesting physician: Alexander Sarkar Consult reason: atrial fibrillation Chief complaint: Chest pain History of present illness: This is a 79-year-old female with past medical history significant for diabetes, hypertension, hyperlipidemia, chronic kidney disease, now undergoes dialysis as an outpatient, COPD, pulmonary hypertension, aortic stenosis. She had a recent admission to the hospital in April of this year, for diastolic congestive heart failure. Patient is noted to the hospital on this occasion because of symptoms of chest pain. Patient states that she had a pain in her chest which she described as a severe pain, sharp in nature, she states it was hard to take a deep breath when she had the symptoms, it appeared to make it worse. She also felt that she had very feeling in her chest, like anxiety. She came to the hospital for further evaluation and treatment. Her initial EKG on presentation here showed atrial fibrillation with a moderately rapid ventricular response. Chest x-ray showed cardiomegaly without any acute pulmonary process. Blood pressure 120/70 with a heart rate in the 70s to 80s, 93% on room air. White blood cell count 4.5, hemoglobin 8.2, platelet count 149. Sodium on admission 128 with a potassium of 2.9, BUN 39, creatinine 3.07. Magnesium 1.4, troponins 0.06, 0.06, 0.05. BNP level 23,800. At the time of my examination this morning, patient denies any chest discomfort, she still feels a mild fluttering sensation in her chest, continues to be in atrial fibrillation this morning. Past Medical History Past Medical History: COPD, Diabetes Mellitus, Hyperlipidemia, Hypertension, Osteoarthritis (OA), Pneumonia, Renal Disease Additional Past Medical History / Comment(s): COPD, NIDDM type II, diverticulitis, lower GI bleed, bowel obstructions with surgery, ckd stage 3 History of Any Multi-Drug Resistant Organisms: None Reported Past Surgical History: Cholecystectomy, Hysterectomy, Tonsillectomy, Tubal Ligation Additional Past Surgical History / Comment(s): EGDs/colonoscopies, bowel r esections due to obstruction x2, bilateral cataracts removed. Past Anesthesia/Blood Transfusion Reactions: No Reported Reaction Past Psychological History: No Psychological Hx Reported Additional Psychological History / Comment(s): Pt resides alone in an apartment. She uses no assistive device. She drives. Smoking Status: Never smoker Past Alcohol Use History: None Reported Past Drug Use History: None Reported - Past Family History Mother Family Medical History: No Reported History Additional Family Medical History / Comment(s): Mother was healthy and lived to be 79yrs old. Brother(s) Family Medical History: Diabetes Mellitus Medications and Allergies Home Medications Medication Instructions Recorded Confirmed Type Atorvastatin [Lipitor] 40 mg PO DAILY 05/04/19 06/25/19 History Atenolol [Tenormin] 25 mg PO BID #30 tab 05/11/19 06/25/19 Rx Pantoprazole [Protonix] 40 mg PO AC-BRKFST #30 tablet.dr 05/11/19 06/25/19 Rx Albuterol Nebulized [Ventolin 2.5 mg INHALATION RT-TID #0 06/09/19 06/25/19 Rx Nebulized] Furosemide [Lasix] 80 mg PO BID #60 tablet 06/09/19 06/25/19 Rx Isosorbide Mononitrate ER [Imdur] 30 mg PO DAILY #30 tab.er.24h 06/09/19 06/25/19 Rx hydrALAZINE HCL [Apresoline] 25 mg PO BID #60 tab 06/09/19 06/25/19 Rx Semaglutide [Ozempic] 0.25 mg SQ WE@1100 06/25/19 06/25/19 History Allergies Allergy/AdvReac Type Severity Reaction Status Date / Time Penicillins Allergy Severe Rash/Hives Verified 06/25/19 15:45 codeine Allergy Rash/Hives Verified 06/25/19 15:45 diphenhydramine HCl Allergy Swelling Verified 06/25/19 15:45 [From Benadryl] erythromycin base Allergy Rash/Hives Verified 06/25/19 15:45 Iodinated Contrast Media Allergy Rash/Hives Verified 06/25/19 15:45 [Iodinated Contrast Media - IV Dye] iodine Allergy Rash/Hives Verified 06/25/19 15:45 Sulfa (Sulfonamide Allergy Rash/Hives Verified 06/25/19 15:45 Antibiotics) Tetanus Vaccines and Toxoid Allergy Unknown Verified 06/25/19 15:45 [Tetanus Vaccines & Toxoid] Tetracyclines Allergy Rash/Hives Verified 06/25/19 15:45 aspirin AdvReac GI Bleed Verified 06/25/19 15:45 Physical Exam Vitals: Vital Signs Temp Pulse Pulse Resp BP BP Pulse Ox 06/26/19 09:05 84 06/26/19 08:56 78 95 06/26/19 08:00 98.6 F 98 16 119/76 93 L 06/26/19 02:49 99.3 F 99 18 131/86 94 L 06/26/19 00:00 98.7 F 95 18 137/77 95 06/25/19 20:21 92 06/25/19 20:12 96 06/25/19 20:00 99 F 102 H 18 120/64 95 06/25/19 17:00 94 18 122/95 94 L 06/25/19 15:00 93 18 109/77 94 L 06/25/19 14:18 98.9 F 108 H 18 126/66 94 L Intake and Output 06/25/19 06/26/19 06/26/19 22:59 06:59 14:59 Intake Total 540 240 129.177 Output Total 200 Balance 540 40 129.177 Intake: Intake, IV Titration 129.177 Amount Heparin Sod,Pork in 0.45% 129.177 NaCl 25,000 unit In 0.45 % NaCl 1 250ml.bag @ 12 UNITS/KG/HR 8.981 mls/hr IV .Q24H [facility] Rx#: [id number] Oral 540 240 Output: Urine 200 Other: # Voids 1 Weight 74.843 kg 76.3 kg PHYSICAL EXAMINATION: GENERAL: 79-year-old female in no acute distress at the time of my examination HEENT: Head is atraumatic, normocephalic. Pupils equal, round. Sclera anicteric. Conjunctiva are clear. Mucous membranes of the mouth are moist. Neck is supple. There is no elevated jugular venous pressure. No carotid bruit is heard. HEART EXAMINATION: Heart S1 and S2 irregularly irregular, systolic murmur is heard CHEST EXAMINATION: Lungs reveal diminished air entry to the bases bilaterally ABDOMEN: Soft, nontender. Bowel sounds are heard. No organomegaly noted. EXTREMITIES: 2+ peripheral pulses with evidence of peripheral edema and no calf tenderness noted. NEUROLOGIC patient is awake, alert and oriented 3 . Results 06/26/19 06:08 06/26/19 06:08 Cardiac Enzymes 06/25/19 06/25/19 06/25/19 Range/Units 14:48 14:48 22:07 AST 21 (14-36) U/L Troponin I 0.061 H* 0.060 H* (0.000-0.034) ng/mL 06/26/19 06/26/19 Range/Units 02:44 06:08 AST 20 (14-36) U/L Troponin I 0.059 H* (0.000-0.034) ng/mL Coagulation 06/25/19 06/25/19 06/26/19 Range/Units 14:48 22:07 06:08 PT 10.9 (9.0-12.0) sec APTT 21.6 L 56.0 H 31.6 H (22.0-30.0) sec Lipids 06/26/19 Range/Units 06:08 Triglycerides 194 H (<150) mg/dL Cholesterol 149 (<200) mg/dL HDL Cholesterol 89 H (40-60) mg/dL CBC 06/25/19 06/26/19 Range/Units 14:48 06:08 WBC 5.8 4.5 (3.8-10.6) k/uL RBC 2.86 L 2.75 L (3.80-5.40) m/uL Hgb 8.7 L 8.2 L (11.4-16.0) gm/dL Hct 26.2 L 25.4 L (34.0-46.0) % Plt Count 155 149 L (150-450) k/uL Comprehensive Metabolic Panel 06/25/19 06/26/19 Range/Units 14:48 06:08 Sodium 128 L 132 L (137-145) mmol/L Potassium 2.9 L 3.5 (3.5-5.1) mmol/L Chloride 89 L 96 L (98-107) mmol/L Carbon Dioxide 28 27 (22-30) mmol/L BUN 39 H 46 H (7-17) mg/dL Creatinine 3.07 H 3.20 H (0.52-1.04) mg/dL Glucose 423 H 252 H (74-99) mg/dL Calcium 7.3 L 7.1 L (8.4-10.2) mg/dL AST 21 20 (14-36) U/L ALT 31 28 (4-34) U/L Alkaline Phosphatase 75 68 (38-126) U/L Total Protein 5.4 L 5.1 L (6.3-8.2) g/dL Albumin 3.3 L 3.0 L (3.5-5.0) g/dL Current Medications Generic Name Dose Route Start Last Admin Trade Name Freq PRN Reason Stop Dose Admin Albuterol Sulfate 2.5 mg 06/25/19 20:00 06/26/19 08:53 Ventolin Nebulized INHALATION 2.5 mg RT-TID [facility] Administration Aspirin 325 mg 06/26/19 09:00 06/26/19 08:21 Aspirin PO 325 mg DAILY [facility] Administration Atenolol 25 mg 06/25/19 21:00 06/26/19 08:20 Tenormin PO 25 mg BID [facility] Administration Atorvastatin Calcium 40 mg 06/26/19 09:00 06/26/19 08:21 Lipitor PO 40 mg DAILY [facility] Administration Darbepoetin Tien 40 mcg 06/26/19 12:00 Aranesp SQ Q7D [facility] Furosemide 80 mg 06/25/19 21:00 06/26/19 08:20 Lasix PO 80 mg BID [facility] Administration Heparin Sodium (Porcine) 0 unit 06/25/19 16:34 Heparin IV Q6HR PRN Low PTT Protocol Hydralazine HCl 25 mg 06/25/19 21:00 06/26/19 08:20 Apresoline PO 25 mg BID [facility] Administration Heparin Sodium/Sodium Chloride 250 mls @ 8.981 mls/hr 06/25/19 16:45 06/26/19 07:08 25,000 unit/ Sodium Chloride IV 15 units/kg/hr .Q24H [facility] 11.226 mls/hr Titration Protocol 12 UNITS/KG/HR Insulin Aspart 0 unit 06/25/19 21:00 06/26/19 06:35 Novolog SQ 4 unit ACHS [facility] Administration Protocol Isosorbide Mononitrate 30 mg 06/26/19 09:00 06/26/19 08:21 Imdur PO 30 mg DAILY [facility] Administration Nitroglycerin 0.4 mg 06/25/19 16:28 Nitrostat SUBLINGUAL Q5M PRN Chest Pain Nitroglycerin 1 inch 06/25/19 22:00 06/26/19 05:31 Nitro-Bid Oint TOPICAL 1 inch Q6H [facility] Administration Non-Formulary Medication 0.25 mg 06/28/19 11:00 Semaglutide [Ozempic] SQ WE@1100 [facility] Pantoprazole Sodium 40 mg 06/26/19 07:30 06/26/19 06:35 Protonix PO 40 mg AC-BRKFST [facility] Administration Potassium Chloride 20 meq 06/25/19 21:00 06/26/19 08:21 K-Dur 20 PO 20 meq BID [facility] Administration Intake and Output 06/25/19 06/26/19 06/26/19 22:59 06:59 14:59 Intake Total 540 240 129.177 Output Total 200 Balance 540 40 129.177 Intake: Intake, IV Titration 129.177 Amount Heparin Sod,Pork in 0.45% 129.177 NaCl 25,000 unit In 0.45 % NaCl 1 250ml.bag @ 12 UNITS/KG/HR 8.981 mls/hr IV .Q24H [facility] Rx#: [id number] Oral 540 240 Output: Urine 200 Other: # Voids 1 Weight 74.843 kg 76.3 kg 06/26/19 06:08 06/26/19 06:08 EKG Interpretations (text) EKG shows atrial fibrillation with moderately rapid ventricular Assessment and Plan Plan: Assessment and plan #1 Atrial fibrillation, appears to be of new onset for the patient, paroxysmal. #2. Recent hospitalization for acute tracheobronchitis and congestive heart failure, diastolic #3. History of asthma #4. Moderate aortic stenosis #5. Chronic congestive heart failure with diastolic dysfunction and EF of 60- 65% #6. Diabetes mellitus type 2 #7. Chronic kidney disease stage III, on hemodialysis as an outpatient #8. Lifetime nonsmoker #9. History of diverticulitis #10. History of bowel obstruction with surgical repair #11. Hypertension #12. Hyperlipidemia Plan We will obtain a TSH level, patient just had an echocardiogram with Doppler study performed in April which revealed a normal left ventricular systolic function, moderate aortic stenosis, moderate pulmonary hypertension. Patient is currently on IV heparin, we will start the patient on Eliquis, discontinue the Nitropaste, discontinue the aspirin. Increase dose of beta debbie . DNP note has been reviewed, I agree with a documented findings and plan of care. Patient was seen and examined.
[2019-06-26] MEDS ORDERED: DARBEPOETIN ALFA 40 MCG/0.4 ML SYRINGE SQ SCH (12:00)
[2019-06-26] MEDS: APIXABAN 5 MG TAB PO SCH ×2 (13:01→20:35)
[2019-06-26] MEDS ORDERED: AMIODARONE 360 MG in DEXTROSE 5% IN WATER 200 ML IV ONE ×2 (14:12)
[2019-06-26] MEDS ORDERED: DEXTROSE 5% IN WATER 100 ML with AMIODARONE 150 MG IV ONE (14:12)
[2019-06-26 16:45] LABS: Glucose,Whole Blood 210 mg/dL (75-99)
--- NOTE | 2019-06-26 16:49 | P.PN ---
Subjective Progress Note Date: 06/26/19 This is a 79-year-old female admitted with new onset atrial fibrillation, atrial flutter and multiple other medical issues. Scheduled for hemodialysis today. Maintained on amiodarone / heparin drips, oral Lasix. Telemetry reporting atrial fibrillation/flutter with heart rates up into the 130s throughout the night, currently 110s. Denies any chest pain, palpitations or shortness of breath. Receiving supplementation for magnesium of 1.5. Blood sugars uncontrolled, hemoglobin A1c 9. Currently denies any chest pain, reports chest fluttering/palpitations. Denies increased shortness of breath. Objective - Vital Signs Vital signs: Vital Signs Temp 98.5 F 06/26/19 12:00 Pulse 80 06/26/19 13:24 Resp 16 06/26/19 12:00 BP 97/67 06/26/19 12:00 Pulse Ox 95 06/26/19 12:00 Intake & Output 06/25/19 06/26/19 06/26/19 18:59 06:59 18:59 Intake Total 540 240 369.177 Output Total 200 Balance 540 40 369.177 Weight 74.843 kg 76.3 kg Intake: Intake, IV Titration 129.177 Amount Heparin Sod,Pork in 0.45% 129.177 NaCl 25,000 unit In 0.45 % NaCl 1 250ml.bag @ 12 UNITS/KG/HR 8.981 mls/hr IV .Q24H [facility] Rx#: [id number] Oral 540 240 240 Output: Urine 200 Other: # Voids 1 1 - Exam PHYSICAL EXAM: VITAL SIGNS: As above GENERAL: Sitting up in bed, no acute distress HEENT: Conjunctivae normal. eyes normal. Oral mucosa moist NECK: No JVD. No thyroid enlargement. No LNs CARDIOVASCULAR: S1, S2 irregular. Systolic murmur RESPIRATION: Breath sounds diminished in the bases. ABDOMEN: Soft, nontender . No guarding. no masses palpable. Bowel sounds heard. LEGS: positive edema, 2+ pulses.no cyanosis. No tenderness. PSYCHIATRY: Alert and oriented X3, mood and affect normal. NERVOUS SYSTEM: Cranial N 2-12 grossly normal. Moves all 4 limbs. No focal deficits. Strength and sensation grossly intact.. Skin: no rash - Labs CBC & Chem 7: 06/26/19 06:08 03/02/20 06:08 Labs: Abnormal Lab Results - Last 24 Hours (Table) 06/25/19 06/25/19 06/25/19 Range/Units 14:48 20:39 22:07 RBC (3.80-5.40) m/uL Hgb (11.4-16.0) gm/dL Hct (34.0-46.0) % RDW (11.5-15.5) % Plt Count (150-450) k/uL Lymphocytes # (1.0-4.8) k/uL APTT (22.0-30.0) sec Sodium (137-145) mmol/L Chloride (98-107) mmol/L BUN (7-17) mg/dL Creatinine (0.52-1.04) mg/dL Glucose (74-99) mg/dL POC Glucose (mg/dL) 411 H (75-99) mg/dL Hemoglobin A1c (4.0-6.0) % Calcium (8.4-10.2) mg/dL Magnesium (1.6-2.3) mg/dL Troponin I 0.061 H* 0.060 H* (0.000-0.034) ng/mL Total Protein (6.3-8.2) g/dL Albumin (3.5-5.0) g/dL Triglycerides (<150) mg/dL HDL Cholesterol (40-60) mg/dL 06/25/19 06/26/19 06/26/19 Range/Units 22:07 02:44 06:08 RBC (3.80-5.40) m/uL Hgb (11.4-16.0) gm/dL Hct (34.0-46.0) % RDW (11.5-15.5) % Plt Count (150-450) k/uL Lymphocytes # (1.0-4.8) k/uL APTT 56.0 H 31.6 H (22.0-30.0) sec Sodium (137-145) mmol/L Chloride (98-107) mmol/L BUN (7-17) mg/dL Creatinine (0.52-1.04) mg/dL Glucose (74-99) mg/dL POC Glucose (mg/dL) (75-99) mg/dL Hemoglobin A1c (4.0-6.0) % Calcium (8.4-10.2) mg/dL Magnesium (1.6-2.3) mg/dL Troponin I 0.059 H* (0.000-0.034) ng/mL Total Protein (6.3-8.2) g/dL Albumin (3.5-5.0) g/dL Triglycerides (<150) mg/dL HDL Cholesterol (40-60) mg/dL 06/26/19 06/26/19 06/26/19 Range/Units 06:08 06:08 06:08 RBC 2.75 L (3.80-5.40) m/uL Hgb 8.2 L (11.4-16.0) gm/dL Hct 25.4 L (34.0-46.0) % RDW 17.6 H (11.5-15.5) % Plt Count 149 L (150-450) k/uL Lymphocytes # 0.8 L (1.0-4.8) k/uL APTT (22.0-30.0) sec Sodium 132 L (137-145) mmol/L Chloride 96 L (98-107) mmol/L BUN 46 H (7-17) mg/dL Creatinine 3.20 H (0.52-1.04) mg/dL Glucose 252 H (74-99) mg/dL POC Glucose (mg/dL) (75-99) mg/dL Hemoglobin A1c 9.0 H (4.0-6.0) % Calcium 7.1 L (8.4-10.2) mg/dL Magnesium 1.5 L (1.6-2.3) mg/dL Troponin I (0.000-0.034) ng/mL Total Protein 5.1 L (6.3-8.2) g/dL Albumin 3.0 L (3.5-5.0) g/dL Triglycerides 194 H (<150) mg/dL HDL Cholesterol 89 H (40-60) mg/dL 06/26/19 06/26/19 06/26/19 Range/Units 06:15 11:42 12:50 RBC (3.80-5.40) m/uL Hgb (11.4-16.0) gm/dL Hct (34.0-46.0) % RDW (11.5-15.5) % Plt Count (150-450) k/uL Lymphocytes # (1.0-4.8) k/uL APTT 48.6 H (22.0-30.0) sec Sodium (137-145) mmol/L Chloride (98-107) mmol/L BUN (7-17) mg/dL Creatinine (0.52-1.04) mg/dL Glucose (74-99) mg/dL POC Glucose (mg/dL) 280 H 258 H (75-99) mg/dL Hemoglobin A1c (4.0-6.0) % Calcium (8.4-10.2) mg/dL Magnesium (1.6-2.3) mg/dL Troponin I (0.000-0.034) ng/mL Total Protein (6.3-8.2) g/dL Albumin (3.5-5.0) g/dL Triglycerides (<150) mg/dL HDL Cholesterol (40-60) mg/dL Assessment and Plan Assessment: Paroxysmal atrial fibrillation, atrial flutter, new onset chronic CHF exacerbation, diastolic dysfunction,EF 60-65% End-stage renal disease, on hemodialysis Elevated troponin secondary to chronic renal failure Diabetes mellitus,uncontrolled, hyperglycemia, hemoglobin A1c 9 Hypertension Dyslipidemia moderate aortic stenosis Mild to Moderate aortic stenosis Severe pulmonary hypertension Ongoing nicotine dependence Plan: Continue on current medication regime ,monitoring and symptomatic treatment. Hemodialysis today. Diuretics as per nephrology. Lantus insulin initiated. Close monitoring of Accu-Cheks. Antiarrhythmics as per cardiology. PT/OT consulted. The impression and plan of care has been dictated as directed. : I performed a history and examination of this patient, discussed the same with the dictator. I agree with the dictator's note ,documented as a scribe. Any additional findings or plans will be noted.
[2019-06-26 17:36] LABS: % Iron Saturation 23.48 (12.00-45.00); Ferritin 656.7 ng/mL (10.0-291.0)
[2019-06-26] MEDS: AMIODARONE 300 MG in DEXTROSE 5% IN WATER 250 ML IV SCH ×2 (20:15)
[2019-06-26 20:23] LABS: Glucose,Whole Blood 314 mg/dL (75-99)
[2019-06-26] MEDS: INSULIN DETEMIR (LEVEMIR) 100 UNIT/ML SYR SQ SCH (20:35)
[2019-06-26] MEDS: ATENOLOL 50 MG TAB PO SCH (20:35)
[2019-06-27 06:08] LABS: Glucose,Whole Blood 183 mg/dL (75-99)
[2019-06-27] MEDS: PANTOPRAZOLE 40 MG TABLET PO SCH (06:37)
[2019-06-27] MEDS: AMIODARONE 300 MG in DEXTROSE 5% IN WATER 250 ML IV SCH ×2 (06:37)
[2019-06-27] MEDS: INSULIN ASPART (NovoLOG) 100 UNIT/ML VIAL SQ SCH ×4 (06:38→21:23)
[2019-06-27 07:00] LABS: Mean Platelet Volume 8.6; Platelet Count 167 k/uL (150-450)
[2019-06-27 07:16] LABS: Calcium 7.8 mg/dL (8.4-10.2); Magnesium 1.8 mg/dL (1.6-2.3); Potassium 4.4 mmol/L (3.5-5.1)
[2019-06-27] MEDS: ALBUTEROL NEBULIZED 2.5 MG/3 ML INHALATION SCH ×3 (07:59→19:26)
[2019-06-27] MEDS: ATENOLOL 50 MG TAB PO SCH ×2 (08:35→21:24)
[2019-06-27] MEDS: hydrALAZINE HCL 25 MG TAB PO SCH ×2 (08:35→21:24)
[2019-06-27] MEDS: ATORVASTATIN 40 MG TAB PO SCH (08:35)
[2019-06-27] MEDS: POTASSIUM CHLORIDE ER 20 MEQ TAB.ER PO SCH (08:36)
[2019-06-27] MEDS: APIXABAN 5 MG TAB PO SCH ×2 (08:36→21:24)
[2019-06-27] MEDS: FUROSEMIDE 80 MG TAB PO SCH ×2 (08:36→21:24)
[2019-06-27 10:37] VITALS: BMI 30.8
--- NOTE | 2019-06-27 11:20 | P.PN ---
Subjective Patient is seen in follow-up for end-stage renal disease. She is currently on amiodarone drip. Tolerated hemodialysis well yesterday. No vomiting or diarrhea. No chest pain or shortness of breath. Vital signs are stable. General: The patient appeared well nourished and normally developed. HEENT: Head exam is unremarkable. Neck is without jugular venous distension. LUNGS: Lungs are clear to auscultation and percussion. Breath sounds decreased. HEART: Irregular rate and rhythm. ABDOMEN: Abdominal exam reveals normal bowel sounds. Non-tender and non- distended. No evidence of peritonitis. EXTREMITITES: No clubbing, cyanosis, or edema. Objective - Vital Signs Vital signs: Vital Signs Temp 99.5 F 06/27/19 08:00 Pulse 118 H 06/27/19 08:11 Resp 20 06/27/19 08:00 BP 97/55 06/27/19 08:00 Pulse Ox 97 06/27/19 08:01 Intake & Output 06/26/19 06/27/19 06/27/19 18:59 06:59 18:59 Intake Total 909.177 480 240 Output Total 2000 300 Balance 909.177 -1520 -60 Weight 76.5 kg 76.5 kg Intake: IV 80 0.9 80 Intake, IV Titration 429.177 400 Amount Amiodarone 300 mg In 400 Dextrose 5% in Water 250 ml @ 0.5 MG/MIN 25 mls/hr IV .Q10H [facility] Rx#: [id number] Dextrose 5% in Water 100 100 ml @ 618 mls/hr IV .Q10M [facility] with Amiodarone 150 mg Rx#:[id number] Heparin Sod,Pork in 0.45% 129.177 NaCl 25,000 unit In 0.45 % NaCl 1 250ml.bag @ 12 UNITS/KG/HR 8.981 mls/hr IV .Q24H [facility] Rx#: [id number] Magnesium Sulfate-D5w Pmx 200 1 gm In Dextrose/Water 1 100ml.bag @ 100 mls/hr IVPB Q1H [facility] Rx#: [id number] Oral 480 240 Output: Urine 300 Hemodialysis 2000 Other: Voiding Method Toilet Toilet # Voids 1 - Labs CBC & Chem 7: 06/27/19 06:04 06/27/19 06:04 Labs: Abnormal Lab Results - Last 24 Hours (Table) 06/26/19 06/26/19 06/26/19 Range/Units 06:08 06:08 11:42 APTT (22.0-30.0) sec Sodium (137-145) mmol/L BUN (7-17) mg/dL Creatinine (0.52-1.04) mg/dL Glucose (74-99) mg/dL POC Glucose (mg/dL) 258 H (75-99) mg/dL Hemoglobin A1c 9.0 H (4.0-6.0) % Calcium (8.4-10.2) mg/dL Ferritin 656.7 H (10.0-291.0) ng/mL 06/26/19 06/26/19 06/26/19 Range/Units 12:50 16:34 20:22 APTT 48.6 H (22.0-30.0) sec Sodium (137-145) mmol/L BUN (7-17) mg/dL Creatinine (0.52-1.04) mg/dL Glucose (74-99) mg/dL POC Glucose (mg/dL) 210 H 314 H (75-99) mg/dL Hemoglobin A1c (4.0-6.0) % Calcium (8.4-10.2) mg/dL Ferritin (10.0-291.0) ng/mL 06/27/19 06/27/19 Range/Units 06:04 06:07 APTT (22.0-30.0) sec Sodium 132 L (137-145) mmol/L BUN 20 H (7-17) mg/dL Creatinine 2.36 H (0.52-1.04) mg/dL Glucose 161 H (74-99) mg/dL POC Glucose (mg/dL) 183 H (75-99) mg/dL Hemoglobin A1c (4.0-6.0) % Calcium 7.8 L (8.4-10.2) mg/dL Ferritin (10.0-291.0) ng/mL Assessment and Plan Plan: Assessment: 1. End-stage renal disease maintained on hemodialysis on Wednesday schedule. 2. A. fib with RVR. Currently rate controlled. Maintained on amiodarone and anticoagulation. 3. Hypertension with chronic kidney disease. Controlled. 4. Hypokalemia secondary to diuresis. Status post placement. Better. 5. Hypomagnesemia secondary to diuresis. Better post replacement. 6. Chronic diastolic CHF with moderate pulmonary hypertension. 7. Anemia of chronic kidney disease Maintained on Aranesp. Plan: Hemodialysis tomorrow with goal 1-1/2-2 L of hydration. Maintain oral Lasix. Decrease dose of potassium supplementation.
[2019-06-27 12:06] LABS: Glucose,Whole Blood 254 mg/dL (75-99)
--- NOTE | 2019-06-27 16:17 | P.PN ---
Subjective Progress Note Date: 06/27/19 This is a 79-year-old female with past medical history significant for diabetes, hypertension, hyperlipidemia, chronic kidney disease, now undergoes dialysis as an outpatient, COPD, pulmonary hypertension, aortic stenosis. She had a recent admission to the hospital in April of this year, for diastolic congestive heart failure. Patient is noted to the hospital on this occasion because of symptoms of chest pain. Patient states that she had a pain in her chest which she described as a severe pain, sharp in nature, she states it was hard to take a deep breath when she had the symptoms, it appeared to make it worse. She also felt that she had very feeling in her chest, like anxiety. She came to the hospital for further evaluation and treatment. Her initial EKG on presentation here showed atrial fibrillation with a moderately rapid ventricular response. Chest x-ray showed cardiomegaly without any acute pulmonary process. Blood pressure 120/70 with a heart rate in the 70s to 80s, 93% on room air. White blood cell count 4.5, hemoglobin 8.2, platelet count 149. Sodium on admis glen 128 with a potassium of 2.9, BUN 39, creatinine 3.07. Magnesium 1.4, troponins 0.06, 0.06, 0.05. BNP level 23,800. At the time of my examination this morning, patient denies any chest discomfort, she still feels a mild fluttering sensation in her chest, continues to be in atrial fibrillation this morning. 07/14/2019 Patient seen and examined this morning, sitting up at bedside today, overall looking significantly better. Denies any further discomfort in the jaws or in her chest. Blood pressure 125/70 with a heart rate in the 80s today, atrial fib/flutter. Sodium 132, potassium 4.4, BUN 20, creatinine 2.3, magnesium 1.8. Objective - Vital Signs Vital signs: Vital Signs Temp 98.7 F 06/27/19 11:25 Pulse 98 06/27/19 12:52 Resp 18 06/27/19 11:25 BP 125/72 06/27/19 11:25 Pulse Ox 97 06/27/19 11:25 Intake & Output 06/26/19 06/27/19 06/27/19 18:59 06:59 18:59 Intake Total 909.177 480 480 Output Total 2000 300 Balance 909.177 -1520 180 Weight 76.5 kg 76.5 kg Intake: IV 80 0.9 80 Intake, IV Titration 429.177 400 Amount Amiodarone 300 mg In 400 Dextrose 5% in Water 250 ml @ 0.5 MG/MIN 25 mls/hr IV .Q10H [facility] Rx#: [id number] Dextrose 5% in Water 100 100 ml @ 618 mls/hr IV .Q10M ONE with Amiodarone 150 mg Rx#:[id number] Heparin Sod,Pork in 0.45% 129.177 NaCl 25,000 unit In 0.45 % NaCl 1 250ml.bag @ 12 UNITS/KG/HR 8.981 mls/hr IV .Q24H [facility] Rx#: [id number] Magnesium Sulfate-D5w Pmx 200 1 gm In Dextrose/Water 1 100ml.bag @ 100 mls/hr IVPB Q1H [facility] Rx#: [id number] Oral 480 480 Output: Urine 300 Hemodialysis 1999 Other: Voiding Method Toilet Toilet # Voids 1 - Exam PHYSICAL EXAMINATION: GENERAL: 79-year-old female in no acute distress at the time of my examination HEENT: Head is atraumatic, normocephalic. Pupils equal, round. Sclera anicteric. Conjunctiva are clear. Mucous membranes of the mouth are moist. Neck is supple. There is no elevated jugular venous pressure. No carotid bruit is heard. HEART EXAMINATION: Heart S1 and S2 irregularly irregular, systolic murmur is heard CHEST EXAMINATION: Lungs reveal diminished air entry to the bases bilaterally ABDOMEN: Soft, nontender. Bowel sounds are heard. No organomegaly noted. EXTREMITIES: 2+ peripheral pulses with evidence of peripheral edema and no calf tenderness noted. NEUROLOGIC patient is awake, alert and oriented 3 - Labs CBC & Chem 7: 06/27/19 06:04 06/27/19 06:04 Labs: Abnormal Lab Results - Last 24 Hours (Table) 06/26/19 06/26/19 06/26/19 Range/Units 06:08 16:34 20:22 Sodium (137-145) mmol/L BUN (7-17) mg/dL Creatinine (0.52-1.04) mg/dL Glucose (74-99) mg/dL POC Glucose (mg/dL) 210 H 314 H (75-99) mg/dL Calcium (8.4-10.2) mg/dL Ferritin 656.7 H (10.0-291.0) ng/mL 06/27/19 06/27/19 06/27/19 Range/Units 06:04 06:07 11:37 Sodium 132 L (137-145) mmol/L BUN 20 H (7-17) mg/dL Creatinine 2.36 H (0.52-1.04) mg/dL Glucose 161 H (74-99) mg/dL POC Glucose (mg/dL) 183 H 254 H (75-99) mg/dL Calcium 7.8 L (8.4-10.2) mg/dL Ferritin (10.0-291.0) ng/mL Assessment and Plan Plan: Assessment and plan #1 Atrial fibrillation, appears to be of new onset for the patient, paroxysmal. #2. Recent hospitalization for acute tracheobronchitis and congestive heart failure, diastolic #3. History of asthma #4. Moderate aortic stenosis #5. Chronic congestive heart failure with diastolic dysfunction and EF of 60- 65% #6. Diabetes mellitus type 2 #7. Chronic kidney disease stage III, on hemodialysis as an outpatient #8. Lifetime nonsmoker #9. History of diverticulitis #10. History of bowel obstruction with surgical repair #11. Hypertension #12. Hyperlipidemia Plan We will start the patient on by mouth amiodarone now that the drip was infused. Continue to monitor. DNP note has been reviewed, I agree with a documented findings and plan of care. Patient was seen and examined.
[2019-06-27 16:59] LABS: Glucose,Whole Blood 239 mg/dL (75-99)
[2019-06-27 20:41] LABS: Glucose,Whole Blood 195 mg/dL (75-99)
[2019-06-27] MEDS: AMIODARONE 200 MG TAB PO SCH (21:24)
[2019-06-27] MEDS: INSULIN DETEMIR (LEVEMIR) 100 UNIT/ML SYR SQ SCH (21:37)
[2019-06-28 06:08] LABS: Glucose,Whole Blood 130 mg/dL (75-99)
[2019-06-28 06:37] LABS: Mean Platelet Volume 8.9; Platelet Count 188 k/uL (150-450)
[2019-06-28] MEDS: INSULIN ASPART (NovoLOG) 100 UNIT/ML VIAL SQ SCH ×5 (06:44→21:07)
[2019-06-28] MEDS: PANTOPRAZOLE 40 MG TABLET PO SCH (06:44)
[2019-06-28] MEDS: hydrALAZINE HCL 25 MG TAB PO SCH ×2 (08:01→21:06)
[2019-06-28] MEDS: AMIODARONE 200 MG TAB PO SCH ×2 (08:01→21:06)
[2019-06-28] MEDS: APIXABAN 5 MG TAB PO SCH ×2 (08:01→21:06)
[2019-06-28] MEDS: POTASSIUM CHLORIDE ER 20 MEQ TAB.ER PO SCH (08:01)
[2019-06-28] MEDS: ATORVASTATIN 40 MG TAB PO SCH (08:01)
[2019-06-28] MEDS: FUROSEMIDE 80 MG TAB PO SCH ×2 (08:02→21:06)
[2019-06-28] MEDS: ATENOLOL 50 MG TAB PO SCH ×2 (08:02→21:07)
[2019-06-28] MEDS: ALBUTEROL NEBULIZED 2.5 MG/3 ML INHALATION SCH ×3 (08:17→19:44)
--- NOTE | 2019-06-28 10:48 | P.PN ---
Subjective Patient is seen in follow-up for end-stage renal disease. Heart rate is controlled. She is maintained on oral atenolol and amiodarone. No vomiting or diarrhea. No chest pain or shortness of breath. Does complain of left-sided neck pain. Vital signs are stable. General: The patient appeared well nourished and normally developed. HEENT: Head exam is unremarkable. Neck is without jugular venous distension. LUNGS: Lungs are clear to auscultation and percussion. Breath sounds decreased. HEART: Irregular rate and rhythm. ABDOMEN: Abdominal exam reveals normal bowel sounds. Non-tender and non- distended. No evidence of peritonitis. EXTREMITITES: No clubbing, cyanosis, or edema. Objective - Vital Signs Vital signs: Vital Signs Temp 98.2 F 06/28/19 07:59 Pulse 88 06/28/19 08:29 Resp 18 06/28/19 08:00 BP 113/67 06/28/19 07:59 Pulse Ox 97 06/28/19 07:59 Intake & Output 06/27/19 06/28/19 06/28/19 18:59 06:59 18:59 Intake Total 720 360 240 Output Total 400 400 Balance 320 360 -160 Weight 76.5 kg 76.4 kg Intake: Oral 720 360 240 Output: Urine 400 400 Other: Voiding Method Toilet Toilet Toilet # Voids 0 # Bowel Movements 1 - Labs CBC & Chem 7: 06/28/19 05:29 06/27/19 06:04 Labs: Abnormal Lab Results - Last 24 Hours (Table) 06/27/19 06/27/19 06/27/19 Range/Units 11:37 16:49 20:39 POC Glucose (mg/dL) 254 H 239 H 195 H (75-99) mg/dL 06/28/19 Range/Units 06:07 POC Glucose (mg/dL) 130 H (75-99) mg/dL Assessment and Plan Plan: Assessment: 1. End-stage renal disease maintained on hemodialysis on Wednesday schedule. 2. A. fib with RVR. Currently rate controlled. Maintained on amiodarone and anticoagulation. 3. Hypertension with chronic kidney disease. Controlled. 4. Hypokalemia secondary to diuresis. Status post placement. Better. 5. Hypomagnesemia secondary to diuresis. Better post replacement. 6. Chronic diastolic CHF with moderate pulmonary hypertension. 7. Anemia of chronic kidney disease Maintained on Aranesp. Plan: Hemodialysis today with goal 1-1/2-2 L of hydration. Maintain oral Lasix. Check carotid ultrasound.
[2019-06-28 11:39] LABS: Glucose,Whole Blood 164 mg/dL (75-99)
--- NOTE | 2019-06-28 12:20 | P.PN ---
Subjective Progress Note Date: 06/28/19 This is a 79-year-old female with past medical history significant for diabetes, hypertension, hyperlipidemia, chronic kidney disease, now undergoes dialysis as an outpatient, COPD, pulmonary hypertension, aortic stenosis. She had a recent admission to the hospital in April of this year, for diastolic congestive heart failure. Patient is noted to the hospital on this occasion because of symptoms of chest pain. Patient states that she had a pain in her chest which she described as a severe pain, sharp in nature, she states it was hard to take a deep breath when she had the symptoms, it appeared to make it worse. She also felt that she had very feeling in her chest, like anxiety. She came to the hospital for further evaluation and treatment. Her initial EKG on presentation here showed atrial fibrillation with a moderately rapid ventricular response. Chest x-ray showed cardiomegaly without any acute pulmonary process. Blood pressure 120/70 with a heart rate in the 70s to 80s, 93% on room air. White blood cell count 4.5, hemoglobin 8.2, platelet count 149. Sodium on admis [place] 128 with a potassium of 2.9, BUN 39, creatinine 3.07. Magnesium 1.4, troponins 0.06, 0.06, 0.05. BNP level 23,800. At the time of my examination this morning, patient denies any chest discomfort, she still feels a mild fluttering sensation in her chest, continues to be in atrial fibrillation this morning. 06/27/2019 Patient seen and examined this morning, sitting up at bedside today, overall looking significantly better. Denies any further discomfort in the jaws or in her chest. Blood pressure 125/70 with a heart rate in the 80s today, atrial fib/flutter. Sodium 132, potassium 4.4, BUN 20, creatinine 2.3, magnesium 1.8. 06/28/2019 Patient was seen and examined this morning, currently undergoing dialysis. She does state to the night last night that she had some pain in her neck and one episode of a sharp pain in her chest. Because of the recurrence of discomfort in the chest and neck and jaw region with the abnormality in troponin patient has been advised to undergo stress testing. We will schedule the patient for Persantine stress test tomorrow. Objective - Vital Signs Vital signs: Vital Signs Temp 98 F 03/04/20 11:51 Pulse 76 06/28/19 11:52 Resp 18 06/28/19 11:52 BP 108/71 06/28/19 11:51 Pulse Ox 96 06/28/19 11:51 Intake & Output 06/27/19 06/28/19 06/28/19 18:59 06:59 18:59 Intake Total 720 360 240 Output Total 400 400 Balance 320 360 -160 Weight 76.5 kg 76.4 kg Intake: Oral 720 360 240 Output: Urine 400 400 Other: Voiding Method Toilet Toilet Toilet # Voids 0 # Bowel Movements 1 - Exam PHYSICAL EXAMINATION: GENERAL: 79-year-old female in no acute distress at the time of my examination HEENT: Head is atraumatic, normocephalic. Pupils equal, round. Sclera anicteric. Conjunctiva are clear. Mucous membranes of the mouth are moist. Neck is supple. There is no elevated jugular venous pressure. No carotid bruit is heard. HEART EXAMINATION: Heart S1 and S2 irregularly irregular, systolic murmur is heard CHEST EXAMINATION: Lungs reveal diminished air entry to the bases bilaterally ABDOMEN: Soft, nontender. Bowel sounds are heard. No organomegaly noted. EXTREMITIES: 2+ peripheral pulses with evidence of peripheral edema and no calf tenderness noted. NEUROLOGIC patient is awake, alert and oriented 3 - Labs CBC & Chem 7: 06/28/19 05:29 06/27/19 06:04 Labs: Abnormal Lab Results - Last 24 Hours (Table) 06/27/19 06/27/19 06/28/19 Range/Units 16:49 20:39 06:07 POC Glucose (mg/dL) 239 H 195 H 130 H (75-99) mg/dL 06/28/19 Range/Units 11:31 POC Glucose (mg/dL) 164 H (75-99) mg/dL Assessment and Plan Plan: Assessment and plan #1 Atrial fibrillation, appears to be of new onset for the patient, paroxysmal. #2. Recent hospitalization for acute tracheobronchitis and congestive heart failure, diastolic #3. History of asthma #4. Moderate aortic stenosis #5. Chronic congestive heart failure with diastolic dysfunction and EF of 60- 65% #6. Diabetes mellitus type 2 #7. Chronic kidney disease stage III, on hemodialysis as an outpatient #8. Lifetime nonsmoker #9. History of diverticulitis #10. History of bowel obstruction with surgical repair #11. Hypertension #12. Hyperlipidemia Plan Patient will be scheduled tomorrow to undergo a Persantine stress test. Continue current medications. DNP note has been reviewed, I agree with a documented findings and plan of care. Patient was seen and examined.
--- NOTE | 2019-06-28 12:41 | US ---
EXAMINATION TYPE: US carotid duplex BILAT DATE OF EXAM: 06/28/2019 COMPARISON: NONE CLINICAL HISTORY: Left sided neck pain; syncope. IJV catheter right neck for renal dialysis and was p laced here 06/06/19. EXAM MEASUREMENTS: RIGHT: Peak Systolic Velocity (PSV) cm/sec ----- Right CCA: 77.3 ----- Right ICA: 61.6 ----- Right ECA: 29.6 ICA/CCA ratio: 0.8 RIGHT: End Diastole cm/sec ----- Right CCA: 30.2 ----- Right ICA: 21.5 ----- Right ECA: 0.0 LEFT: Peak Systolic Velocity (PSV) cm/sec ----- Left CCA: 43.3 ----- Left ICA: 80.8 ----- Left ECA: 43.3 ICA/CCA ratio: 1.9 LEFT: End Diastole cm/sec ----- Left CCA: 11.9 ----- Left ICA: 31.1 ----- Left ECA: 0.0 VERTEBRALS (direction of flow): Right Vertebral: Antegrade Left Vertebral: Antegrade Rhythm: Arrhythmia Mild to moderate intimal wall changes are noted in bilateral carotid bifurcations, but PSV is wnl paul aterally. Incidental finding of internal IJV echoes (thrombosis) noted surrounding indwelling IJV catheter site w/cuff. Venous flow is noted around IJV thrombosis. Renal dialysis technologist stated flow is perfu sing still in Right IJV catheter. IMPRESSION: 1. No significant hemodynamic stenosis. Intimal thickening noted. 2. 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 Correlate clinically. 3. Cardiac dysrhythmia Criteria for Assigning % of Stenosis / Diameter reduction (Estimation based on the indirect measurements of the internal carotid artery velocities (ICA PSV). 1. Normal (no stenosis)=ICA PSV < 125 cm/s: ratio < 2.0: ICA EDV<40 cm/s. 2. Less than 50% stenosis=ICA PSV < 125 cm/s: ratio < 2.0: ICA EDV<40 cm/s. 3. 50 to 69% stenosis=ICA PSV of 125 to 230 cm/s: ration 2.0 ? 4.0: ICA EDV 40-100 cm/s. 4. Greater than 70% stenosis to near occlusion= ICA PSV > 230 cm/s: ratio > 4.0: ICA EDV > 100 cm/s. 5. Near occlusion= ICA PSV velocities may be low or undetectable: variable ratio and ICA EDV. 6. Total occlusion=unable to detect flow.
--- NOTE | 2019-06-28 14:00 | P.PN ---
Subjective Progress Note Date: 06/27/19 This is a 79-year-old female admitted with new onset atrial fibrillation, atrial flutter and multiple other medical issues. Scheduled for hemodialysis today. Maintained on amiodarone / heparin drips, oral Lasix. Telemetry reporting atrial fibrillation/flutter with heart rates up into the 130s throughout the night, currently 110s. Denies any chest pain, palpitations or shortness of breath. Receiving supplementation for magnesium of 1.5. Blood sugars uncontrolled, hemoglobin A1c 9. Currently denies any chest pain, reports chest fluttering/palpitations. Denies increased shortness of breath. 06/27/2019 yesterday afternoon amiodarone drip initiated related to heart rate uncontrolled. Telemetry atrial fibrillation/flutter with rate controlled currently. IV drip being converted to oral amiodarone. Continues on oral Lasix, Tolerated hemodialysis yesterday well. Denies chest pain, shortness of breath. Objective - Vital Signs Vital signs: Vital Signs Temp 98.7 F 06/27/19 11:25 Pulse 98 06/27/19 12:52 Resp 18 06/27/19 11:25 BP 125/72 06/27/19 11:25 Pulse Ox 97 06/27/19 11:25 Intake & Output 06/26/19 06/27/19 06/27/19 18:59 06:59 18:59 Intake Total 909.177 480 480 Output Total 2000 300 Balance 909.177 -1520 180 Weight 76.5 kg 76.5 kg Intake: IV 80 0.9 80 Intake, IV Titration 429.177 400 Amount Amiodarone 300 mg In 400 Dextrose 5% in Water 250 ml @ 0.5 MG/MIN 25 mls/hr IV .Q10H DORI Rx#: [id number] Dextrose 5% in Water 100 100 ml @ 618 mls/hr IV .Q10M ONE with Amiodarone 150 mg Rx#:[id number] Heparin Sod,Pork in 0.45% 129.177 NaCl 25,000 unit In 0.45 % NaCl 1 250ml.bag @ 12 UNITS/KG/HR 8.981 mls/hr IV .Q24H DORI Rx#: [id number] Magnesium Sulfate-D5w Pmx 200 1 gm In Dextrose/Water 1 100ml.bag @ 100 mls/hr IVPB Q1H DORI Rx#: [id number] Oral 480 480 Output: Urine 300 Hemodialysis 2000 Other: Voiding Method Toilet Toilet # Voids 1 - Exam PHYSICAL EXAM: VITAL SIGNS: As above GENERAL: Sitting up in bed, no acute distress HEENT: Conjunctivae normal. eyes normal. Oral mucosa moist NECK: No JVD. No thyroid enlargement. No LNs CARDIOVASCULAR: S1, S2 irregular. Systolic murmur. RESPIRATION: Breath sounds diminished in the bases. ABDOMEN: Soft, nontender . No guarding. no masses palpable. Bowel sounds heard . LEGS: positive edema, 2+ pulses.no cyanosis. No tenderness. PSYCHIATRY: Alert and oriented X3, mood and affect normal. NERVOUS SYSTEM: Cranial N 2-12 grossly normal. Moves all 4 limbs. No focal de ficits. Strength and sensation grossly intact.. Skin: no rash - Labs CBC & Chem 7: 06/28/19 05:29 06/27/19 06:04 Labs: Abnormal Lab Results - Last 24 Hours (Table) 06/26/19 06/26/19 06/26/19 Range/Units 06:08 06:08 16:34 Sodium (137-145) mmol/L BUN (7-17) mg/dL Creatinine (0.52-1.04) mg/dL Glucose (74-99) mg/dL POC Glucose (mg/dL) 210 H (75-99) mg/dL Hemoglobin A1c 9.0 H (4.0-6.0) % Calcium (8.4-10.2) mg/dL Ferritin 656.7 H (10.0-291.0) ng/mL 06/26/19 06/27/19 06/27/19 Range/Units 20:22 06:04 06:07 Sodium 132 L (137-145) mmol/L BUN 20 H (7-17) mg/dL Creatinine 2.36 H (0.52-1.04) mg/dL Glucose 161 H (74-99) mg/dL POC Glucose (mg/dL) 314 H 183 H (75-99) mg/dL Hemoglobin A1c (4.0-6.0) % Calcium 7.8 L (8.4-10.2) mg/dL Ferritin (10.0-291.0) ng/mL 06/27/19 Range/Units 11:37 Sodium (137-145) mmol/L BUN (7-17) mg/dL Creatinine (0.52-1.04) mg/dL Glucose (74-99) mg/dL POC Glucose (mg/dL) 254 H (75-99) mg/dL Hemoglobin A1c (4.0-6.0) % Calcium (8.4-10.2) mg/dL Ferritin (10.0-291.0) ng/mL Assessment and Plan Assessment: Paroxysmal atrial fibrillation, atrial flutter, new onset chronic CHF exacerbation, diastolic dysfunction,EF 60-65% End-stage renal disease, on hemodialysis Elevated troponin secondary to chronic renal failure Diabetes mellitus,uncontrolled, hyperglycemia, hemoglobin A1c 9 Hypertension Dyslipidemia moderate aortic stenosis Mild to Moderate aortic stenosis Severe pulmonary hypertension Ongoing nicotine dependence Plan: Continue on current medication regime ,monitoring and symptomatic treatment. Antiarrhythmics as per cardiology. Diuretics/hemodialysis as per nephrology. PT. The impression and plan of care has been dictated as directed. .: I performed a history and examination of this patient, discussed the same with the dictator. I agree with the dictator's note ,documented as a scribe. Any additional findings or plans will be noted.
--- NOTE | 2019-06-28 14:14 | P.PN ---
Subjective Progress Note Date: 06/28/19 This is a 79-year-old female admitted with new onset atrial fibrillation, atrial flutter and multiple other medical issues. Scheduled for hemodialysis today. Maintained on amiodarone / heparin drips, oral Lasix. Telemetry reporting atrial fibrillation/flutter with heart rates up into the 130s throughout the night, currently 110s. Denies any chest pain, palpitations or shortness of breath. Receiving supplementation for magnesium of 1.5. Blood sugars uncontrolled, hemoglobin A1c 9. Currently denies any chest pain, reports chest fluttering/palpitations. Denies increased shortness of breath. 06/27/2019 yesterday afternoon amiodarone drip initiated related to heart rate uncontrolled. Telemetry atrial fibrillation/flutter with rate controlled currently. IV drip being converted to oral amiodarone. Continues on oral Lasix, Tolerated hemodialysis yesterday well. Denies chest pain, shortness of breath. 06/28/2019 currently receiving hemodialysis, tolerating well. Complains of right neck pain, carotid ultrasound completed, results pending. Telemetry A. fib /Rate controlled on oral amiodarone and atenolol. Anticoagulated on Eliquis. Currently denies chest pain, states she did have some last night which resolved. Radiology recommending Persantine stress test. Objective - Vital Signs Vital signs: Vital Signs Temp 98 F 06/28/19 11:51 Pulse 76 06/28/19 11:52 Resp 18 06/28/19 11:52 BP 108/71 06/28/19 11:51 Pulse Ox 96 06/28/19 11:51 Intake & Output 06/27/19 06/28/19 06/28/19 18:59 06:59 18:59 Intake Total 720 360 240 Output Total 400 400 Balance 320 360 -160 Weight 76.5 kg 76.4 kg Intake: Oral 720 360 240 Output: Urine 400 400 Other: Voiding Method Toilet Toilet Toilet # Voids 0 # Bowel Movements 1 - Exam PHYSICAL EXAM: VITAL SIGNS: As above GENERAL: Sitting up in bed, no acute distress HEENT: Conjunctivae normal. eyes normal. Oral mucosa moist NECK: No JVD. No thyroid enlargement. No LNs. CARDIOVASCULAR: S1, S2 irregular. Systolic murmur. RESPIRATION: Breath sounds diminished in the bases. ABDOMEN: Soft, nontender . No guarding. no masses palpable. Bowel sounds heard. LEGS: positive edema, 2+ pulses.no cyanosis. No tenderness. PSYCHIATRY: Alert and oriented X3, mood and affect normal. NERVOUS SYSTEM: Cranial N 2-12 grossly normal. Moves all 4 limbs. No focal deficits. Skin: no rash - Labs CBC & Chem 7: 06/28/19 05:29 06/27/19 06:04 Labs: Abnormal Lab Results - Last 24 Hours (Table) 06/27/19 06/27/19 06/28/19 Range/Units 16:49 20:39 06:07 POC Glucose (mg/dL) 239 H 195 H 130 H (75-99) mg/dL 06/28/19 Range/Units 11:31 POC Glucose (mg/dL) 164 H (75-99) mg/dL Assessment and Plan Assessment: Paroxysmal atrial fibrillation, atrial flutter, new onset chronic CHF exacerbation, diastolic dysfunction,EF 60-65% End-stage renal disease, on hemodialysis Elevated troponin secondary to chronic renal failure Diabetes mellitus,uncontrolled, hyperglycemia, hemoglobin A1c 9 Hypertension Dyslipidemia moderate aortic stenosis Mild to Moderate aortic stenosis Severe pulmonary hypertension Ongoing nicotine dependence Plan: Continue on current medication regime ,monitoring and symptomatic treatment. Carotid ultrasound results pending. Persantine stress test scheduled for tomorrow. Anticoagulation/antiarrhythmics as per cardiology. Hemodialysis as per nephrology. Close monitoring of electrolytes, renal function with repeat labs ordered for a.m. The impression and plan of care has been dictated as directed. : I performed a history and examination of this patient, discussed the same with the dictator. I agree with the dictator's note ,documented as a scribe. Any additional findings or plans will be noted.
[2019-06-28 16:32] LABS: Glucose,Whole Blood 183 mg/dL (75-99)
[2019-06-28 20:36] LABS: Glucose,Whole Blood 220 mg/dL (75-99)
--- NOTE | 2019-06-28 21:06 | CONS ---
DATE OF CONSULTATION: 06/28/2019 This is a 79-year-old female. The patient is known to me. Patient came with acute renal failure. We put a dialysis catheter 2 weeks ago. The patient came with new onset of atrial fibrillation with rapid ventricular response. Patient was anticoagulated by Cardiology and she had an ultrasound of the carotid which was found to be normal. There was some clot seen along the dialysis catheter. Today, patient had dialysis without any problem and the patient has no symptom of chest pain. PHYSICAL EXAMINATION: Patient was seen in her room, lying comfortably in bed. NECK: Supple. Trachea central. CHEST: Clear. ABDOMEN: Soft. Femoral pulses are present. Patient is on anticoagulation. We will watch very closely. Follow with you. Thank you for the consultation. MMCINDYL / ENEN: [id number] / MTDD
[2019-06-28] MEDS: INSULIN DETEMIR (LEVEMIR) 100 UNIT/ML SYR SQ SCH (21:07)
[2019-06-29 05:47] LABS: Glucose,Whole Blood 142 mg/dL (75-99)
[2019-06-29] MEDS: PANTOPRAZOLE 40 MG TABLET PO SCH (06:09)
[2019-06-29] MEDS: INSULIN ASPART (NovoLOG) 100 UNIT/ML VIAL SQ SCH ×4 (06:14→20:20)
[2019-06-29 06:19] LABS: Anisocytosis Slight; Basophils % (A) 1 %; Eosinophils # (A) 0.2 k/uL (0-0.7); Eosinophils % (A) 6 %; HCT 27.1 % (34.0-46.0); HGB 8.7 gm/dL (11.4-16.0); Lymphocytes # (A) 0.9 k/uL (1.0-4.8); Lymphocytes % (A) 27 %; MCH 29.9 pg (25.0-35.0); MCHC 31.9 g/dL (31.0-37.0); MCV 93.7 fL (80.0-100.0); Mean Platelet Volume 8.6; Monocytes # (A) 0.2 k/uL (0-1.0); Monocytes % (A) 7 %; Neutrophils # (A) 1.9 k/uL (1.3-7.7); Neutrophils % (A) 56 %; Platelet Count 197 k/uL (150-450); RDW 17.6 % (11.5-15.5); WBC 3.4 k/uL (3.8-10.6)
[2019-06-29 06:33] LABS: Calcium 8.4 mg/dL (8.4-10.2); Potassium 4.8 mmol/L (3.5-5.1)
[2019-06-29] MEDS: ALBUTEROL NEBULIZED 2.5 MG/3 ML INHALATION SCH ×3 (08:32→20:55)
[2019-06-29] MEDS ORDERED: DIPYRIDAMOLE 44 MG in SODIUM CHLORIDE 0.9% 41.2 ML IV ONE (09:00)
[2019-06-29] MEDS ORDERED: CAFFEINE CITRATE 60 MG/3 ML VIAL IV PRN (09:00)
[2019-06-29] MEDS ORDERED: AMINOPHYLLINE 500 MG/20 ML VIAL IV PRN (09:00)
[2019-06-29] MEDS ORDERED: AMINOPHYLLINE 500 MG/20 ML VIAL IV ONE (11:10)
[2019-06-29] MEDS ORDERED: ONDANSETRON 4 MG/2 ML VIAL ONE (11:10)
--- NOTE | 2019-06-29 11:53 | NM ---
EXAMINATION TYPE: NM stress persantine cardiolit DATE OF EXAM: 06/29/2019 COMPARISON: NONE HISTORY: Chest pain TECHNIQUE: After the intravenous administration of 10.2 mCi Tc 99m Sestamibi - Cardiolite resting SP ECT images acquired 85 minutes post injection. The patient received 44 mg Persantine, 24.6 mCi Tc 99m Sestamibi - Stress images obtained 30 minutes post injection FINDINGS: Review of stress and rest SPECT images demonstrates no distinct perfusion abnormality. Gated analysi s shows normal wall motion with an estimated left ventricular ejection fraction of 60 %. IMPRESSION: No scintigraphic evidence for reversible ischemia.
[2019-06-29] MEDS: ATENOLOL 50 MG TAB PO SCH ×2 (11:56→20:19)
[2019-06-29] MEDS: APIXABAN 5 MG TAB PO SCH ×2 (11:56→20:19)
[2019-06-29] MEDS: AMIODARONE 200 MG TAB PO SCH ×2 (11:56→20:19)
[2019-06-29 12:02] LABS: Glucose,Whole Blood 149 mg/dL (75-99)
--- NOTE | 2019-06-29 12:07 | EST ---
EXERCISE STRESS AGE: 79 SEX: F HT: 62" WT: 168 PROTOCOL: Persantine Cardiolite Stress Test HEART RATE REST: 102 BLOOD PRESSURE REST: 121/70 MAXIMUM HEART RATE ACHIEVED: 97 MAXIMUM BLOOD PRESSURE: 121/70 INDICATIONS: Atrial flutter CLINICAL INFORMATION: Baseline EKG shows atrial fibrillation with atypical atrial flutter with nonspecific ST- T wave changes. Patient was given intravenous Lexiscan as per protocol. Did not have chest pain or diagnostic ST-segment depression. CONCLUSION: 1. Inconclusive EKG part of the stress test due to baseline EKG abnormalities. 2. Cardiolite portion of the stress test will be reported separately. MMODL / IJN: [id number] /
[2019-06-29] MEDS: hydrALAZINE HCL 25 MG TAB PO SCH ×2 (12:13→20:19)
[2019-06-29] MEDS: ATORVASTATIN 40 MG TAB PO SCH (12:17)
[2019-06-29] MEDS: FUROSEMIDE 80 MG TAB PO SCH ×2 (12:17→20:19)
[2019-06-29] MEDS: POTASSIUM CHLORIDE ER 20 MEQ TAB.ER PO SCH (12:17)
--- NOTE | 2019-06-29 12:59 | PN ---
PROGRESS NOTE Ms. Travis is a 79-year-old female with end-stage renal disease, on hemodialysis, who presented with atrial fibrillation and rapid ventricular response. She had mild jaw and chest discomfort. She is feeling better today. Her breathing is stable. She denies any dizziness. No palpitation. She denies any nausea. She continued to be in atrial fibrillation with controlled ventricular response. She underwent a myocardial perfusion imaging today that revealed no evidence of inducible ischemia. She continues to be on amiodarone 200 mg twice a day, Eliquis 2.5 mg twice a day, Tenormin 50 mg twice a day, Lipitor 40 mg daily, furosemide 80 mg twice a day, hydralazine 25 mg twice a day, isosorbide mononitrate 30 mg daily, Protonix and Ozempic. PHYSICAL EXAMINATION: Blood pressure 119/70 with a heart rate in the 70s. LUNGS: Clear. HEART: Irregular, regular, S1, S2. No S3 with systolic murmur, no diastolic murmur, no rub. ABDOMEN: Soft, nontender. EXTREMITIES: No edema. IMPRESSION: 1. Atrial fibrillation, rate controlled, anticoagulated. 2. End-stage renal disease, on hemodialysis. 3. Hypertension. 4. Diabetes mellitus. 5. Moderate aortic stenosis. RECOMMENDATION: From the cardiac standpoint, she is stable. Will continue present therapy. Probable discharge home soon and follow up as an outpatient. MMODL / IJN: [id number] /
--- NOTE | 2019-06-29 13:30 | P.PN ---
Subjective Progress Note Date: 06/29/19 This is a 79-year-old female admitted with new onset atrial fibrillation, atrial flutter and multiple other medical issues. Scheduled for hemodialysis today. Maintained on amiodarone / heparin drips, oral Lasix. Telemetry reporting atrial fibrillation/flutter with heart rates up into the 130s throughout the night, currently 110s. Denies any chest pain, palpitations or shortness of breath. Receiving supplementation for magnesium of 1.5. Blood sugars uncontrolled, hemoglobin A1c 9. Currently denies any chest pain, reports chest fluttering/palpitations. Denies increased shortness of breath. 06/27/2019 yesterday afternoon amiodarone drip initiated related to heart rate uncontrolled. Telemetry atrial fibrillation/flutter with rate controlled currently. IV drip being converted to oral amiodarone. Continues on oral Lasix, Tolerated hemodialysis yesterday well. Denies chest pain, shortness of breath. 06/28/2019 currently receiving hemodialysis, tolerating well. Complains of right neck pain, carotid ultrasound completed, results pending. Telemetry A. fib /Rate controlled on oral amiodarone and atenolol. Anticoagulated on Eliquis. Currently denies chest pain, states she did have some last night which resolved. Radiology recommending Persantine stress test. 06/29/2019 maintained on Tenormin, amiodarone, rate controlled. Diuresing well on oral Lasix. Creatinine 2.45. 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 Anticoagulated on Eliquis. Evaluated by vascular surgery with recommendations to continue monitoring on current anticoagulation. Neck Feels better today .Stress test reported inconclusive EKG due to the baseline EKG abnormalities. Persantine stress reporting no scintigraphic evidence for reversible ischemia. Denies any chest pain, palpitations or shortness of breath. Denies any nausea, vomiting, diarrhea. Denies any lightheadedness dizziness focal deficits. Objective - Vital Signs Vital signs: Vital Signs Temp 97.6 F 06/29/19 11:52 Pulse 75 06/29/19 11:52 Resp 20 06/29/19 11:52 BP 119/77 06/29/19 11:52 Pulse Ox 96 06/29/19 11:52 Intake & Output 06/28/19 06/29/19 06/29/19 18:59 06:59 18:59 Intake Total 240 360 Output Total 2400 250 Balance -2160 360 -250 Weight 74.7 kg 74.7 kg Intake: Oral 240 360 Output: Urine 400 250 Hemodialysis 2000 Other: Voiding Method Toilet Toilet Toilet # Bowel Movements 1 - Exam PHYSICAL EXAM: VITAL SIGNS: As above GENERAL: Sitting up in bed, no acute distress HEENT: Conjunctivae normal. eyes normal. Oral mucosa moist NECK: No JVD. No thyroid enlargement. No LNs. CARDIOVASCULAR: S1, S2 irregular. Systolic murmur. RESPIRATION: Breath sounds diminished in the bases. ABDOMEN: Soft, nontender . No guarding. no masses palpable. Bowel sounds heard. LEGS: positive edema, 2+ pulses.no cyanosis. No tenderness. PSYCHIATRY: Alert and oriented X3, mood and affect normal. NERVOUS SYSTEM: Cranial N 2-12 grossly normal. Moves all 4 limbs. No focal deficits. Skin: no rash - Labs CBC & Chem 7: 06/29/19 05:42 06/29/19 05:42 Labs: Abnormal Lab Results - Last 24 Hours (Table) 06/28/19 06/28/19 06/29/19 Range/Units 16:19 20:34 05:42 WBC 3.4 L (3.8-10.6) k/uL RBC 2.90 L (3.80-5.40) m/uL Hgb 8.7 L (11.4-16.0) gm/dL Hct 27.1 L (34.0-46.0) % RDW 17.6 H (11.5-15.5) % Lymphocytes # 0.9 L (1.0-4.8) k/uL Sodium (137-145) mmol/L Creatinine (0.52-1.04) mg/dL Glucose (74-99) mg/dL POC Glucose (mg/dL) 183 H 220 H (75-99) mg/dL 06/29/19 06/29/19 06/29/19 Range/Units 05:42 05:46 12:00 WBC (3.8-10.6) k/uL RBC (3.80-5.40) m/uL Hgb (11.4-16.0) gm/dL Hct (34.0-46.0) % RDW (11.5-15.5) % Lymphocytes # (1.0-4.8) k/uL Sodium 134 L (137-145) mmol/L Creatinine 2.45 H (0.52-1.04) mg/dL Glucose 135 H (74-99) mg/dL POC Glucose (mg/dL) 142 H 149 H (75-99) mg/dL Assessment and Plan Assessment: Paroxysmal atrial fibrillation, atrial flutter, new onset chronic CHF exacerbation, diastolic dysfunction,EF 60-65% Thrombus around dialysis catheter End-stage renal disease, on hemodialysis Elevated troponin secondary to chronic renal failure Diabetes mellitus,uncontrolled, hyperglycemia, hemoglobin A1c 9 Hypertension Dyslipidemia moderate aortic stenosis Severe pulmonary hypertension Ongoing nicotine dependence Plan: Continue on current medication regime ,monitoring and symptomatic treatment. Continue on anticoagulation with close monitoring dialysis cath.as per vascular surgery. Discharge planning in progress pending clearance from cardiology, nephrology. The impression and plan of care has been dictated as directed. : I performed a history and examination of this patient, discussed the same with the dictator. I agree with the dictator's note ,documented as a scribe. Any additional findings or plans will be noted.
[2019-06-29 17:16] LABS: Glucose,Whole Blood 217 mg/dL (75-99)
--- NOTE | 2019-06-29 18:34 | PN ---
PROGRESS NOTE Patient is seen for followup for end-stage renal disease. She is maintained on dialysis on a Wednesday, Wednesday, Wednesday schedule. The patient is going for a stress test today. She denies any significant complaints. PHYSICAL EXAMINATION: This morning blood pressure was 117/69. Patient is afebrile. Heart rate about 70 per minute. Examination of the heart S1, S2. Examination of the lungs, bilateral breath sounds are heard. ABDOMEN: Soft, nontender. Examination of lower extremities shows trace edema bilaterally. FEDERAL MEDIATOR exam grossly intact. LABS SHOW: Hemoglobin 8.7, sodium 134, potassium 4.8, BUN 16, creatinine 2.45. ASSESSMENT: 1. End-stage renal disease, currently on hemodialysis on a Wednesday, Wednesday, Wednesday schedule. We will plan for dialysis in a.m. 2. Volume overload from last admission currently improved. 3. Hypokalemia currently maintained on supplementation. 4. Atrial fibrillation with RVR now with controlled ventricular response. 5. Moderate pulmonary hypertension. 6. Anemia of chronic disease maintained on Aranesp. PLAN: Continue with dialysis for now. We will monitor for recovery of renal function as outpatient. MMODL / IJN: [id number] /
[2019-06-29 20:08] LABS: Glucose,Whole Blood 189 mg/dL (75-99)
[2019-06-29] MEDS: INSULIN DETEMIR (LEVEMIR) 100 UNIT/ML SYR SQ SCH (20:19)
[2019-06-30 06:22] LABS: Glucose,Whole Blood 169 mg/dL (75-99)
[2019-06-30] MEDS: INSULIN ASPART (NovoLOG) 100 UNIT/ML VIAL SQ SCH ×4 (06:25→20:59)
[2019-06-30] MEDS: PANTOPRAZOLE 40 MG TABLET PO SCH (06:25)
[2019-06-30] MEDS: APIXABAN 5 MG TAB PO SCH ×2 (08:30→19:24)
[2019-06-30] MEDS: ATENOLOL 50 MG TAB PO SCH ×2 (08:30→19:24)
[2019-06-30] MEDS: AMIODARONE 200 MG TAB PO SCH ×2 (08:30→19:24)
[2019-06-30] MEDS: ATORVASTATIN 40 MG TAB PO SCH (08:30)
[2019-06-30] MEDS: ALBUTEROL NEBULIZED 2.5 MG/3 ML INHALATION SCH ×3 (09:09→21:27)
[2019-06-30 11:44] LABS: Glucose,Whole Blood 156 mg/dL (75-99)
--- NOTE | 2019-06-30 12:21 | PN ---
PROGRESS NOTE Mrs. Travis is a 79-year-old female with end-stage renal disease, on hemodialysis, who presented with atrial fibrillation, rapid ventricular response. She is feeling better at this point. She underwent a myocardial perfusion imaging that she revealed no evidence of inducible ischemia. She has no chest pain. She is ambulating without difficulty. No dizziness. No palpitation. She continues to be on amiodarone 200 mg twice a day, Eliquis 2.5 mg twice a day, atenolol 50 mg twice a day, Lipitor 40 mg daily, insulin, isosorbide mononitrate 30 mg daily, and potassium. PHYSICAL EXAMINATION: Blood pressure 103/60 with a heart rate in the 80s. LUNGS: Clear. HEART: Irregular, regular, S1, S2. No S3. No rub. ABDOMEN: Soft, nontender. EXTREMITIES: No edema. IMPRESSION: 1. Atrial fibrillation with controlled ventricular response, anticoagulated. 2. End-stage renal disease, on hemodialysis. 3. Hypertension. 4. Diabetes. 5. Moderate aortic stenosis. RECOMMENDATION: From the cardiac standpoint, she is stable. I would expect she should be able to be discharged home within the next 24 hours. Will see her on as-needed basis. Please feel free to call us for any question. MMODL / IJN: [id number] /
--- NOTE | 2019-06-30 12:27 | PN ---
PROGRESS NOTE Patient is seen for followup for end-stage renal disease. She will be dialyzed today. She is currently comfortable. Patient had a stress test done yesterday which showed no evidence of reversible ischemia. PHYSICAL EXAMINATION: On examination today, blood pressure is 103/69, heart rate 63 per minute. She is afebrile Examination of the heart S1, S2. Examination of the lungs, bilateral breath sounds are heard. Abdomen is soft, non-tender. Examination of the lower extremities shows edema 1+ bilaterally. CRANKSHAFT GRINDER exam grossly intact. LABS: Show hemoglobin 8.7, sodium 134, potassium 4.8, chloride 102, CO2 is 26. ASSESSMENT: 1. End-stage renal disease, on hemodialysis on a Wednesday, Wednesday, Wednesday schedule. 2. Volume overload, now significantly improved. 3. Atrial fibrillation with controlled ventricular response. 4. CKD mineral bone disorder. 5. Hypertension, currently controlled. 6. Anemia of chronic disease, maintained on Aranesp. PLAN: Hemodialysis today. Patient can be discharged from nephrology standpoint with followup as outpatient for dialysis on Wednesday. MMODL / IJN: [id number] /
[2019-06-30] MEDS: hydrALAZINE HCL 25 MG TAB PO SCH ×2 (14:52→19:24)
[2019-06-30] MEDS: POTASSIUM CHLORIDE ER 20 MEQ TAB.ER PO SCH (14:52)
[2019-06-30] MEDS: FUROSEMIDE 80 MG TAB PO SCH ×2 (14:52→19:24)
[2019-06-30 17:01] LABS: Glucose,Whole Blood 183 mg/dL (75-99)
--- NOTE | 2019-06-30 18:06 | P.PN ---
Subjective Progress Note Date: 06/30/19 This is a 79-year-old female admitted with new onset atrial fibrillation, atrial flutter and multiple other medical issues. Scheduled for hemodialysis today. Maintained on amiodarone / heparin drips, oral Lasix. Telemetry reporting atrial fibrillation/flutter with heart rates up into the 130s throughout the night, currently 110s. Denies any chest pain, palpitations or shortness of breath. Receiving supplementation for magnesium of 1.5. Blood sugars uncontrolled, hemoglobin A1c 9. Currently denies any chest pain, reports chest fluttering/palpitations. Denies increased shortness of breath. 06/27/2019 yesterday afternoon amiodarone drip initiated related to heart rate uncontrolled. Telemetry atrial fibrillation/flutter with rate controlled currently. IV drip being converted to oral amiodarone. Continues on oral Lasix, Tolerated hemodialysis yesterday well. Denies chest pain, shortness of breath. 06/28/2019 currently receiving hemodialysis, tolerating well. Complains of right neck pain, carotid ultrasound completed, results pending. Telemetry A. fib /Rate controlled on oral amiodarone and atenolol. Anticoagulated on Eliquis. Currently denies chest pain, states she did have some last night which resolved. Radiology recommending Persantine stress test. 06/29/2019 maintained on Tenormin, amiodarone, rate controlled. Diuresing well on oral Lasix. Creatinine 2.45. 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 Anticoagulated on Eliquis. Evaluated by vascular surgery with recommendations to continue monitoring on current anticoagulation. Neck Feels better today .Stress test reported inconclusive EKG due to the baseline EKG abnormalities. Persantine stress reporting no scintigraphic evidence for reversible ischemia. Denies any chest pain, palpitations or shortness of breath. Denies any nausea, vomiting, diarrhea. Denies any lightheadedness dizziness focal deficits. 06/30/2019 ambulating without difficulty, denies lightheadedness dizziness, no focal deficits. Currently chest pain-free. Vital signs stable. Blood sugars controlled. Scheduled for hemodialysis today. Objective - Vital Signs Vital signs: Vital Signs Temp 98.4 F 06/30/19 14:24 Pulse 78 06/30/19 14:50 Resp 18 06/30/19 14:50 BP 100/52 06/30/19 14:24 Pulse Ox 95 06/30/19 08:10 Intake & Output 06/29/19 06/30/19 06/30/19 18:59 06:59 18:59 Intake Total 240 Output Total 250 3000 Balance -10 -3000 Weight 74.7 kg 75.5 kg Intake: Oral 240 Output: Urine 250 Hemodialysis 3000 Other: Voiding Method Toilet Toilet Toilet # Voids 1 # Bowel Movements 1 - Exam PHYSICAL EXAM: VITAL SIGNS: As above GENERAL: Sitting up in bed, no acute distress HEENT: Conjunctivae normal. eyes normal. Oral mucosa moist NECK: No JVD. No thyroid enlargement. No LNs. CARDIOVASCULAR: S1, S2 irregular. Systolic murmur. RESPIRATION: Breath sounds diminished in the bases. No rhonchi, no crackles, No wheezes ABDOMEN: Soft, nontender . No guarding. no masses palpable. Bowel sounds heard. LEGS: Mild edema, 2+ pulses.no cyanosis. No tenderness. PSYCHIATRY: Alert and oriented X3, mood and affect normal. NERVOUS SYSTEM: Cranial N 2-12 grossly normal. Moves all 4 limbs. No focal deficits. Skin: no rash - Labs CBC & Chem 7: 06/29/19 05:42 06/29/19 05:42 Labs: Abnormal Lab Results - Last 24 Hours (Table) 06/29/19 06/30/19 06/30/19 Range/Units 20:07 06:20 11:38 POC Glucose (mg/dL) 189 H 169 H 156 H (75-99) mg/dL 06/30/19 Range/Units 16:55 POC Glucose (mg/dL) 183 H (75-99) mg/dL Assessment and Plan Assessment: Paroxysmal atrial fibrillation, atrial flutter, new onset, with controlled ventricular rate chronic CHF exacerbation, diastolic dysfunction,EF 60-65% Thrombus around dialysis catheter End-stage renal disease, on hemodialysis Elevated troponin secondary to chronic renal failure Diabetes mellitus, hemoglobin A1c 9, currently controlled. Hypertension Dyslipidemia moderate aortic stenosis Severe pulmonary hypertension Ongoing nicotine dependence Plan: Continue on current medication regime ,monitoring and symptomatic treatment. Continue monitoring overnight as per cardiology. Hemodialysis today. Cleared for discharge as per nephrology Discharge planning in progress for tomorrow pending clearance from cardiology. The impression and plan of care has been dictated as directed. : I performed a history and examination of this patient, discussed the same with the dictator. I agree with the dictator's note ,documented as a scribe. Any additional findings or plans will be noted.
[2019-06-30 20:54] LABS: Glucose,Whole Blood 227 mg/dL (75-99)
[2019-06-30] MEDS: INSULIN DETEMIR (LEVEMIR) 100 UNIT/ML SYR SQ SCH (20:59)
[2019-07-01 06:07] LABS: Glucose,Whole Blood 99 mg/dL (75-99)
[2019-07-01] MEDS: INSULIN ASPART (NovoLOG) 100 UNIT/ML VIAL SQ SCH ×2 (06:44→12:27)
[2019-07-01] MEDS: PANTOPRAZOLE 40 MG TABLET PO SCH (06:44)
[2019-07-01] MEDS: ALBUTEROL NEBULIZED 2.5 MG/3 ML INHALATION SCH ×2 (08:12→13:38)
[2019-07-01] MEDS: hydrALAZINE HCL 25 MG TAB PO SCH (08:22)
[2019-07-01] MEDS: POTASSIUM CHLORIDE ER 20 MEQ TAB.ER PO SCH (08:22)
[2019-07-01] MEDS: ATENOLOL 50 MG TAB PO SCH (08:22)
[2019-07-01] MEDS: ATORVASTATIN 40 MG TAB PO SCH (08:22)
[2019-07-01] MEDS: AMIODARONE 200 MG TAB PO SCH (08:22)
[2019-07-01] MEDS: FUROSEMIDE 80 MG TAB PO SCH (08:23)
[2019-07-01] MEDS: APIXABAN 5 MG TAB PO SCH (08:23)
[2019-07-01 10:35] VITALS: BP 104/60; PULSE 62; RESP 18; TEMP 98.2
--- NOTE | 2019-07-01 11:11 | P.PN ---
Subjective Progress Note Date: 07/01/19 Follow-up for ESRD. Objective - Vital Signs Vital signs: Vital Signs Temp 98.2 F 07/01/19 08:35 Pulse 62 07/01/19 08:35 Resp 18 07/01/19 08:35 BP 104/60 07/01/19 08:35 Pulse Ox 100 07/01/19 08:35 Intake & Output 06/30/19 07/01/19 07/01/19 18:59 06:59 18:59 Intake Total 300 560 Output Total 3300 Balance -3000 560 Weight 77 kg Intake: Oral 300 560 Output: Urine 300 Hemodialysis 3000 Other: Voiding Method Toilet Toilet # Voids 2 - Exam No acute distress S1-S2 heard Lungs clear Right jugular permacath Trace edema - Labs CBC & Chem 7: 06/29/19 05:42 06/29/19 05:42 Labs: Abnormal Lab Results - Last 24 Hours (Table) 06/30/19 06/30/19 06/30/19 Range/Units 11:38 16:55 20:53 POC Glucose (mg/dL) 156 H 183 H 227 H (75-99) mg/dL Assessment and Plan Assessment: #1 ESRD on hemodialysis MWF schedule #2 volume overload improved with dialysis #3 atrial fibrillation #4 anemia with ESRD #5 metabolic bone disease with ESRD #6 hypertension with ESRD Plan: #1 hemodialysis MWF schedule #2 ESRD medications
[2019-07-01 11:51] LABS: Glucose,Whole Blood 135 mg/dL (75-99)
[2019-07-01] MEDS ORDERED: APIXABAN 2.5 MG TABLET PO SCH (21:00)
== END 2019-07-01 14:10 | disposition home health service (06) | DRG 308 ==
LOC: EC 14:17 → 3SCARD 16:28
PROVIDERS: ADMIT Family Medicine; ATTEND Family Medicine
PROC: 5A1D70Z Performance of Urinary Filtration, Intermittent, Less than 6 Hours Per Day (ICD-10-PCS; principal; 2019-06-26)
DX: I48.0 Paroxysmal atrial fibrillation (principal); N18.6 End stage renal disease; I50.33 Acute on chronic diastolic (congestive) heart failure; I13.2 Hypertensive heart and chronic kidney disease with heart failure and with stage 5 chronic kidney disease, or end stage renal disease; N17.9 Acute kidney failure, unspecified; I27.20 Pulmonary hypertension, unspecified; E83.9 Disorder of mineral metabolism, unspecified; D63.1 Anemia in chronic kidney disease; I48.4 Atypical atrial flutter; E11.22 Type 2 diabetes mellitus with diabetic chronic kidney disease; E11.65 Type 2 diabetes mellitus with hyperglycemia; E87.6 Hypokalemia; I35.0 Nonrheumatic aortic (valve) stenosis; E78.5 Hyperlipidemia, unspecified; J44.9 Chronic obstructive pulmonary disease, unspecified; E83.42 Hypomagnesemia; T50.2X5A Adverse effect of carbonic-anhydrase inhibitors, benzothiadiazides and other diuretics, initial encounter; M54.2 Cervicalgia; M19.90 Unspecified osteoarthritis, unspecified site; Z99.2 Dependence on renal dialysis; Z79.84 Long term (current) use of oral hypoglycemic drugs; Z79.899 Other long term (current) drug therapy; Z87.01 Personal history of pneumonia (recurrent); Z90.49 Acquired absence of other specified parts of digestive tract; Z90.710 Acquired absence of both cervix and uterus; Z98.51 Tubal ligation status; Z87.19 Personal history of other diseases of the digestive system; Z98.890 Other specified postprocedural states; Z98.42 Cataract extraction status, left eye; Z98.41 Cataract extraction status, right eye; Z88.5 Allergy status to narcotic agent; Z88.0 Allergy status to penicillin; Z88.2 Allergy status to sulfonamides; Z88.7 Allergy status to serum and vaccine; Z88.8 Allergy status to other drugs, medicaments and biological substances; Z88.6 Allergy status to analgesic agent; Z88.1 Allergy status to other antibiotic agents; Z91.041 Radiographic dye allergy status; Z83.3 Family history of diabetes mellitus
CPT/HCPCS: 36415; 71046; 78452; 80048; 80053; 80061; 82728; 83036; 83540; 83550; 83735; 83880; 84443; 84484; 85025; 85049; 85610; 85730; 90935; 93005; 93017; 93880; 94640; 94760; 96365; 96376; 99291

== ENCOUNTER 2020-06-22 16:22 | Inpatient (IN) | payer MEDICARE, OTHER ==
[2020-06-22 17:06] LABS: Glucose,Whole Blood 206 mg/dL (75-99)
--- NOTE | 2020-06-22 17:53 | ED ---
Weakness HPI - General Chief complaint: Weakness Stated complaint: Weakness, High BP Time Seen by Provider: 06/22/20 16:40 Source: patient Mode of arrival: wheelchair Limitations: no limitations - History of Present Illness Initial comments: 80-year-old female past medical history of A. fib, heart failure, COPD, diabetes, end-stage renal disease on hemodialysis who presents emergency room with reported weakness. Patient states that she's been feeling weak for the past several days. She did see her primary care in office who put her on an inhaler. He was concerned that the patient may need admission to the hospital however they were given a see if the inhaler helped the patient. Reports to shortness of breath and inability to ambulate. No fevers or chills. Does get dialysis Wednesday. Denies missing any doses. Denies any a bdominal pain. Admits nausea without vomiting. No other alleviating, precipitating or modifying factors - Related Data Home Medications Medication Instructions Recorded Confirmed Atorvastatin [Lipitor] 40 mg PO DAILY 05/04/19 06/22/20 Semaglutide [Ozempic] 0.25 mg SQ Q14D 06/25/19 06/22/20 Nephro-Rosario 0.8mg 1 tab PO DAILY 07/18/19 06/22/20 Apixaban [Eliquis] 2.5 mg PO BID 06/22/20 06/22/20 Furosemide [Lasix] 20 mg PO BID 06/22/20 06/22/20 Levothyroxine Sodium [Synthroid] 88 mcg PO DAILY 06/22/20 06/22/20 Potassium Chloride ER [K-Dur 10] 10 meq PO DAILY 06/22/20 06/22/20 Previous Rx's Medication Instructions Recorded Pantoprazole [Protonix] 40 mg PO AC-BRKFST #30 tablet.dr 05/11/19 Isosorbide Mononitrate ER [Imdur] 30 mg PO DAILY #30 tab.er.24h 06/09/19 hydrALAZINE HCL [Apresoline] 25 mg PO BID #60 tab 06/09/19 Amiodarone [Cordarone] 200 mg PO BID tab 07/01/19 Darbepoetin Tien [Aranesp] 40 mcg SQ Q7D syringe 07/01/19 Allergies Allergy/AdvReac Type Severity Reaction Status Date / Time Penicillins Allergy Severe Rash/Hives Verified 06/22/20 20:12 codeine Allergy Rash/Hives Verified 06/22/20 20:12 diphenhydramine HCl Allergy Swelling Verified 06/22/20 20:12 [From Benadryl] erythromycin base Allergy Rash/Hives Verified 06/22/20 20:12 Iodinated Contrast Media Allergy Rash/Hives Verified 06/22/20 20:12 [Iodinated Contrast Media - IV Dye] iodine Allergy Rash/Hives Verified 06/22/20 20:12 latex Allergy Rash/Hives Verified 06/22/20 20:12 Sulfa (Sulfonamide Allergy Rash/Hives Verified 06/22/20 20:12 Antibiotics) Tetanus Vaccines and Toxoid Allergy Unknown Verified 06/22/20 20:12 [Tetanus Vaccines & Toxoid] Tetracyclines Allergy Rash/Hives Verified 06/22/20 20:12 aspirin AdvReac GI Bleed Verified 06/22/20 20:12 Review of Systems ROS Statement: Those systems with pertinent positive or pertinent negative responses have been documented in the HPI. ROS Other: All systems not noted in ROS Statement are negative. Past Medical History Past Medical History: Atrial Fibrillation, Heart Failure, COPD, Diabetes Mellitus, Dialysis, Deep Vein Thrombosis (DVT), Hyperlipidemia, Hypertension, Osteoarthritis (OA), Pneumonia, Renal Disease, Syncope Additional Past Medical History / Comment(s): Pt recently admitted to [facility] on 06/25/19 with Afib RVR, diastolic heart failure, ESRD with hemodialysis, blood clot candelario port area in her chest. Other hx: NIDDM type II, ESRD with hemodialysis on //, chronic anemia, chronic CHF, moderate pulmonary HTN, diverticulitis, lower GI bleed, bowel obstructions with surgery twice. History of Any Multi-Drug Resistant Organisms: None Reported Past Surgical History: Cholecystectomy, Hysterectomy, Tonsillectomy, Tubal Ligation Additional Past Surgical History / Comment(s): R chest dialysis catheter, EGDs/colonoscopies, bowel resections due to obstruction x2, bilateral cataracts removed. Past Anesthesia/Blood Transfusion Reactions: No Reported Reaction Past Psychological History: No Psychological Hx Reported Smoking Status: Never smoker Past Alcohol Use History: None Reported Past Drug Use History: None Reported - Past Family History Mother Family Medical History: No Reported History Additional Family Medical History / Comment(s): Mother was healthy and lived to be 79yrs old. Son(s) Family Medical History: Diabetes Mellitus, Dialysis, Renal Disease Additional Family Medical History / Comment(s): Son had renal failure/dialysis and at the age of 52 yrs. Brother(s) Family Medical History: Diabetes Mellitus General Exam Limitations: no limitations General appearance: alert, in no apparent distress Head exam: Present: atraumatic, normocephalic, normal inspection Eye exam: Present: normal appearance, PERRL, EOMI. Absent: scleral icterus, conjunctival injection, periorbital swelling ENT exam: Present: normal exam, mucous membranes moist Neck exam: Present: normal inspection. Absent: tenderness, meningismus, lymphadenopathy Respiratory exam: Present: rales, other (anterior right sided dialysis catheter). Absent: respiratory distress, wheezes, rhonchi, stridor Cardiovascular Exam: Present: regular rate, normal rhythm, normal heart sounds. Absent: systolic murmur, diastolic murmur, rubs, gallop, clicks GI/Abdominal exam: Present: soft, normal bowel sounds. Absent: distended, tenderness, guarding, rebound, rigid Extremities exam: Present: normal inspection, full ROM, normal capillary refill. Absent: tenderness, pedal edema, joint swelling, calf tenderness Back exam: Present: normal inspection Neurological exam: Present: alert, oriented X3, CN II-XII intact Psychiatric exam: Present: normal affect, normal mood Skin exam: Present: warm, dry, intact, normal color. Absent: rash Course Vital Signs 06/22/20 06/22/20 06/22/20 16:38 17:10 17:14 Temperature 98.7 F Pulse Rate 79 Pulse Rate [ 68 Code Enforcement Inspector ] Respiratory 16 18 18 Rate Blood Pressure 181/79 O2 Sat by Pulse 97 Oximetry 06/22/20 06/22/20 20:00 20:01 Temperature Pulse Rate 76 Pulse Rate [ Code Enforcement Inspector ] Respiratory 18 18 Rate Blood Pressure 190/91 O2 Sat by Pulse 96 Oximetry EKG Findings - EKG Comments: EKG Findings:: EKG demonstrates sinus rhythm with PACs. Rate of 72. NE normal 186. QRS 86. QTC 399. No acute ST segment elevation or depressions Medical Decision Making - Medical Decision Making Upon arrival patient was placed into room 5. A thorough history and physical exam was performed. Laboratory studies are conducted. Patient does report to recent high blood pressure. Vitals continued to demonstrate elevated blood pressures. aboratory studies are reviewed. Sodium 131. Potassium 3.3. BNP 6580. Chest x-ray does demonstrate mild congestive heart failure. I did discuss results with the patient. Patient will need dialysis for fluid overload. I will give her 40 of Lasix to attempt diuresis that she does state she normally urinates in the morning. I spoke with Dr. Nagel who agreed to admit the patient. Will place nephro on consult. She currently awaiting a bed on the floor - Lab Data Result diagrams: 06/24/20 05:09 06/24/20 05:09 Lab Results 06/22/20 06/22/20 06/22/20 Range/Units 17:05 17:55 17:55 WBC 4.1 (3.8-10.6) k/uL RBC 3.04 L (3.80-5.40) m/uL Hgb 9.3 L (11.4-16.0) gm/dL Hct 27.5 L (34.0-46.0) % MCV 90.4 (80.0-100.0) fL MCH 30.8 (25.0-35.0) pg MCHC 34.0 (31.0-37.0) g/dL RDW 15.3 (11.5-15.5) % Plt Count 260 (150-450) k/uL MPV 7.2 Neutrophils % 69 % Lymphocytes % 16 % Monocytes % 9 % Eosinophils % 4 % Basophils % 1 % Neutrophils # 2.8 (1.3-7.7) k/uL Lymphocytes # 0.7 L (1.0-4.8) k/uL Monocytes # 0.4 (0-1.0) k/uL Eosinophils # 0.2 (0-0.7) k/uL Basophils # 0.0 (0-0.2) k/uL PT 11.9 (9.0-12.0) sec INR 1.1 (<1.2) APTT 24.2 (22.0-30.0) sec Sodium (137-145) mmol/L Potassium (3.5-5.1) mmol/L Chloride (98-107) mmol/L Carbon Dioxide (22-30) mmol/L Anion Gap mmol/L BUN (7-17) mg/dL Creatinine (0.52-1.04) mg/dL Est GFR (CKD-EPI)AfAm (>60 ml/min/1.73 sqM) Est GFR (CKD-EPI)NonAf (>60 ml/min/1.73 sqM) Glucose (74-99) mg/dL POC Glucose (mg/dL) 206 H (75-99) mg/dL POC Glu Breast Worker ID Lavere, Ali Plasma Lactic Acid Brendan (0.7-2.0) mmol/L Calcium (8.4-10.2) mg/dL Magnesium (1.6-2.3) mg/dL Total Bilirubin (0.2-1.3) mg/dL AST (14-36) U/L ALT (4-34) U/L Alkaline Phosphatase (38-126) U/L Creatine Kinase (30-135) U/L Troponin I (0.000-0.034) ng/mL NT-Pro-B Natriuret Pep pg/mL Total Protein (6.3-8.2) g/dL Albumin (3.5-5.0) g/dL TSH (0.465-4.680) mIU/L Free T4 (0.78-2.19) ng/dL 06/22/20 06/22/20 06/22/20 Range/Units 17:55 17:55 17:55 WBC (3.8-10.6) k/uL RBC (3.80-5.40) m/uL Hgb (11.4-16.0) gm/dL Hct (34.0-46.0) % MCV (80.0-100.0) fL MCH (25.0-35.0) pg MCHC (31.0-37.0) g/dL RDW (11.5-15.5) % Plt Count (150-450) k/uL MPV Neutrophils % % Lymphocytes % % Monocytes % % Eosinophils % % Basophils % % Neutrophils # (1.3-7.7) k/uL Lymphocytes # (1.0-4.8) k/uL Monocytes # (0-1.0) k/uL Eosinophils # (0-0.7) k/uL Basophils # (0-0.2) k/uL PT (9.0-12.0) sec INR (<1.2) APTT (22.0-30.0) sec Sodium 131 L (137-145) mmol/L Potassium 3.3 L (3.5-5.1) mmol/L Chloride 93 L (98-107) mmol/L Carbon Dioxide 30 (22-30) mmol/L Anion Gap 8 mmol/L BUN 21 H (7-17) mg/dL Creatinine 2.61 H (0.52-1.04) mg/dL Est GFR (CKD-EPI)AfAm 19 (>60 ml/min/1.73 sqM) Est GFR (CKD-EPI)NonAf 17 (>60 ml/min/1.73 sqM) Glucose 194 H (74-99) mg/dL POC Glucose (mg/dL) (75-99) mg/dL POC Glu Breast Worker ID Plasma Lactic Acid Brendan 1.9 (0.7-2.0) mmol/L Calcium 8.6 (8.4-10.2) mg/dL Magnesium 1.7 (1.6-2.3) mg/dL Total Bilirubin 0.9 (0.2-1.3) mg/dL AST 35 (14-36) U/L ALT 38 H (4-34) U/L Alkaline Phosphatase 87 (38-126) U/L Creatine Kinase 55 (30-135) U/L Troponin I 0.020 (0.000-0.034) ng/mL NT-Pro-B Natriuret Pep pg/mL Total Protein 6.1 L (6.3-8.2) g/dL Albumin 3.4 L (3.5-5.0) g/dL TSH 7.190 H (0.465-4.680) mIU/L Free T4 (0.78-2.19) ng/dL 06/22/20 06/22/20 Range/Units 17:55 17:55 WBC (3.8-10.6) k/uL RBC (3.80-5.40) m/uL Hgb (11.4-16.0) gm/dL Hct (34.0-46.0) % MCV (80.0-100.0) fL MCH (25.0-35.0) pg MCHC (31.0-37.0) g/dL RDW (11.5-15.5) % Plt Count (150-450) k/uL MPV Neutrophils % % Lymphocytes % % Monocytes % % Eosinophils % % Basophils % % Neutrophils # (1.3-7.7) k/uL Lymphocytes # (1.0-4.8) k/uL Monocytes # (0-1.0) k/uL Eosinophils # (0-0.7) k/uL Basophils # (0-0.2) k/uL PT (9.0-12.0) sec INR (<1.2) APTT (22.0-30.0) sec Sodium (137-145) mmol/L Potassium (3.5-5.1) mmol/L Chloride (98-107) mmol/L Carbon Dioxide (22-30) mmol/L Anion Gap mmol/L BUN (7-17) mg/dL Creatinine (0.52-1.04) mg/dL Est GFR (CKD-EPI)AfAm (>60 ml/min/1.73 sqM) Est GFR (CKD-EPI)NonAf (>60 ml/min/1.73 sqM) Glucose (74-99) mg/dL POC Glucose (mg/dL) (75-99) mg/dL POC Glu Breast Worker ID Plasma Lactic Acid Brendan (0.7-2.0) mmol/L Calcium (8.4-10.2) mg/dL Magnesium (1.6-2.3) mg/dL Total Bilirubin (0.2-1.3) mg/dL AST (14-36) U/L ALT (4-34) U/L Alkaline Phosphatase (38-126) U/L Creatine Kinase (30-135) U/L Troponin I (0.000-0.034) ng/mL NT-Pro-B Natriuret Pep 6580 pg/mL Total Protein (6.3-8.2) g/dL Albumin (3.5-5.0) g/dL TSH (0.465-4.680) mIU/L Free T4 2.14 (0.78-2.19) ng/dL Disposition Clinical Impression: CHF exacerbation, ESRD (end stage renal disease) on dialysis, Weakness, High blood pressure Disposition: ADMITTED IP TO THIS HOSP Condition: Stable Is patient prescribed a controlled substance at d/c from ED?: No Decision to Admit Reason: Admit from EC Decision Date: 06/22/20 Decision Time: 19:32
[2020-06-22 18:03] LABS: Basophils % (A) 1 %; Eosinophils # (A) 0.2 k/uL (0-0.7); Eosinophils % (A) 4 %; HCT 27.5 % (34.0-46.0); HGB 9.3 gm/dL (11.4-16.0); Lymphocytes # (A) 0.7 k/uL (1.0-4.8); Lymphocytes % (A) 16 %; MCH 30.8 pg (25.0-35.0); MCV 90.4 fL (80.0-100.0); Mean Platelet Volume 7.2; Monocytes # (A) 0.4 k/uL (0-1.0); Monocytes % (A) 9 %; Neutrophils # (A) 2.8 k/uL (1.3-7.7); Neutrophils % (A) 69 %; Platelet Count 260 k/uL (150-450); RBC 3.04 m/uL (3.80-5.40); RDW 15.3 % (11.5-15.5); WBC 4.1 k/uL (3.8-10.6)
[2020-06-22 18:13] LABS: INR 1.1 (<1.2); Partial Thromboplastin Time 24.2 sec (22.0-30.0); Prothrombin Time 11.9 sec (9.0-12.0)
[2020-06-22 18:35] LABS: Albumin 3.4 g/dL (3.5-5.0); Calcium 8.6 mg/dL (8.4-10.2); Magnesium 1.7 mg/dL (1.6-2.3); Total Bilirubin 0.9 mg/dL (0.2-1.3); Total Protein 6.1 g/dL (6.3-8.2)
--- NOTE | 2020-06-22 18:42 | XR ---
EXAMINATION TYPE: XR chest 2V DATE OF EXAM: 06/22/2020 COMPARISON: 06/25/2019 HISTORY: Chest pain TECHNIQUE: 2 views FINDINGS: Heart is enlarged. There is blunting of the costophrenic angles. There is pulmonary vascula r congestion. There is right central venous catheter with tip in the superior vena cava. The bony tho rax is intact. IMPRESSION: Mild congestive heart failure with pleural effusions. Pulmonary congestion and fluid incr eased compared to old exam.
[2020-06-22 19:01] LABS: Potassium 3.3 mmol/L (3.5-5.1)
[2020-06-22] MEDS ORDERED: NALOXONE 0.4 MG/ML 1 ML VIAL IV PRN (19:34)
[2020-06-22] MEDS ORDERED: POTASSIUM CHLORIDE 20 MEQ in WATER FOR INJECTION 1 100ML.BAG IVPB STA (21:44)
[2020-06-22] MEDS ORDERED: FUROSEMIDE 10 MG/ML 4 ML VIAL IV STA (21:44)
[2020-06-22] MEDS ORDERED: Potassium Replacement Protocol 1 EACH MISC MISCELLANE PRN (22:27)
[2020-06-22] MEDS: ATORVASTATIN 40 MG TAB PO SCH (22:35)
[2020-06-22] MEDS: APIXABAN 2.5 MG TABLET PO SCH (22:35)
[2020-06-22] MEDS: AMIODARONE 200 MG TAB PO SCH (22:35)
[2020-06-22] MEDS: hydrALAZINE HCL 25 MG TAB PO SCH (22:35)
[2020-06-23] MEDS: POTASSIUM CHLORIDE ER 20 MEQ TAB.ER PO SCH ×2 (00:23→13:48)
[2020-06-23] MEDS: POTASSIUM CHLORIDE 10 MEQ in WATER FOR INJECTION 1 100ML.BAG IVPB SCH ×2 (00:23→00:24)
[2020-06-23] MEDS ORDERED: ONDANSETRON 4 MG/2 ML VIAL IVP PRN (00:35)
[2020-06-23] MEDS: hydrALAZINE HCL 20 MG/ML 1 ML VIAL IVP PRN (00:59)
[2020-06-23] MEDS ORDERED: LEVOTHYROXINE 88 MCG TAB PO SCH (06:30)
[2020-06-23 07:21] LABS: Glucose,Whole Blood 155 mg/dL (75-99)
[2020-06-23] MEDS: ISOSORBIDE MONONITRATE ER 30 MG TAB.ER.24H PO SCH (08:07)
[2020-06-23] MEDS: ATORVASTATIN 40 MG TAB PO SCH (08:07)
[2020-06-23] MEDS: APIXABAN 2.5 MG TABLET PO SCH ×2 (08:07→21:38)
[2020-06-23] MEDS: AMIODARONE 200 MG TAB PO SCH ×2 (08:07→21:38)
[2020-06-23] MEDS: PANTOPRAZOLE 40 MG TABLET PO SCH (08:07)
[2020-06-23] MEDS: hydrALAZINE HCL 25 MG TAB PO SCH ×2 (08:07→21:38)
[2020-06-23] MEDS ORDERED: NEPHRO VITE 0.8 MG PO SCH (09:00)
[2020-06-23 09:46] LABS: African American GFR (CKD) 15.7 (60.0-200.0); Anion Gap 6.6 mmol/L (4.00-12.00); BUN/Creat Ratio 7.42 Ratio (12.00-20.00); Basophils # (A) 0.02 X 10*3/uL (0.00-0.10); Basophils % (A) 0.3 %; Calcium 8.6 mg/dL (8.7-10.3); Carbon Dioxide 31.4 mmol/L (21.6-31.8); Eosinophils # (A) 0.13 X 10*3/uL (0.04-0.35); Eosinophils % (A) 1.9 %; HCT 28.3 % (37.2-46.3); HGB 9.2 g/dL (12.0-15.0); Lymphocytes # (A) 0.51 X 10*3/uL (0.90-5.00); Lymphocytes % (A) 7.3 %; MCH 30.2 pg (27.0-32.0); MCHC 32.5 g/dL (32.0-37.0); MCV 92.8 fL (80.0-97.0); Mean Platelet Volume 10.6 fL (9.5-12.2); Monocytes # (A) 0.43 X 10*3/uL (0.20-1.00); Monocytes % (A) 6.2 %; Neutrophils # (A) 5.83 X 10*3/uL (1.80-7.70); Non-African American GFR(CKD) 13.5 (60.0-200.0); Platelet Count 291 X 10*3/uL (140-440); Potassium 4.2 mmol/L (3.5-5.5); RBC 3.05 X 10*6/uL (4.10-5.20); RDW 15.3 % (11.5-14.5); WBC 6.94 X 10*3/uL (4.50-10.00)
--- NOTE | 2020-06-23 10:33 | P.NPCON ---
History of Present Illness - Reason for Consult end stage renal disease - History of Present Illness Reason for consultation: End-stage renal disease History of present illness: Patient is a 80-year-old female seen in renal consultation for end-stage renal disease. She is maintained on hemodialysis on Wednesday schedule. Last hemodialysis was on Wednesday. Patient states she felt weak yesterday and decided to come to the hospital. Her blood pressure was over to her systolic on admission. This morning he was 135/60. She denies any dizziness or syncopal episodes. She is currently only on hydralazine and Imdur for blood pressure control. Chest x-ray was suggestive of mild CHF. Patient does have history of COPD. She is currently on 2 L nasal cannula. Afebrile. No chills. COVID PCR negative. Hemoglobin 9.2 this morning. No melena or hematochezia. No abdominal pain. Oral intake is fair. Vital signs are stable. General: The patient appeared well nourished and normally developed. HEENT: Head exam is unremarkable. Neck is without jugular venous distension. LUNGS: Breath sounds decreased. HEART: Rate and Rhythm are regular. ABDOMEN: Soft, nontender. EXTREMITITES: No edema. Past Medical History Past Medical History: Atrial Fibrillation, Heart Failure, COPD, Diabetes Mellitus, Dialysis, Deep Vein Thrombosis (DVT), Hyperlipidemia, Hypertension, Osteoarthritis (OA), Pneumonia, Renal Disease, Syncope Additional Past Medical History / Comment(s): Pt recently admitted to [facility] on 06/25/19 with Afib RVR, diastolic heart failure, ESRD with hemodialysis, blood clot candelario port area in her chest. Other hx: NIDDM type II, ESRD with hemodialysis on //, chronic anemia, chronic CHF, moderate pulmonary HTN, diverticulitis, lower GI bleed, bowel obstructions with surgery twice. History of Any Multi-Drug Resistant Organisms: None Reported Past Surgical History: Cholecystectomy, Hysterectomy, Tonsillectomy, Tubal Ligation Additional Past Surgical History / Comment(s): R chest dialysis catheter, EGDs/colonoscopies, bowel resections due to obstruction x2, bilateral cataracts removed. Past Anesthesia/Blood Transfusion Reactions: No Reported Reaction Past Psychological History: No Psychological Hx Reported Smoking Status: Never smoker Past Alcohol Use History: None Reported Past Drug Use History: None Reported - Past Family History Mother Family Medical History: No Reported History Additional Family Medical History / Comment(s): Mother was healthy and lived to be 79yrs old. Son(s) Family Medical History: Diabetes Mellitus, Dialysis, Renal Disease Additional Family Medical History / Comment(s): Son had renal failure/dialysis and at the age of 52 yrs. Brother(s) Family Medical History: Diabetes Mellitus Medications and Allergies Home Medications Medication Instructions Recorded Confirmed Type Atorvastatin [Lipitor] 40 mg PO DAILY 05/04/19 06/22/20 History Pantoprazole [Protonix] 40 mg PO AC-BRKFST #30 tablet.dr 05/11/19 06/22/20 Rx Isosorbide Mononitrate ER [Imdur] 30 mg PO DAILY #30 tab.er.24h 06/09/19 06/22/20 Rx hydrALAZINE HCL [Apresoline] 25 mg PO BID #60 tab 06/09/19 06/22/20 Rx Semaglutide [Ozempic] 0.25 mg SQ Q14D 06/25/19 06/22/20 History Amiodarone [Cordarone] 200 mg PO BID tab 07/01/19 06/22/20 Rx Darbepoetin Tien [Aranesp] 40 mcg SQ Q7D syringe 07/01/19 06/22/20 Rx Nephro-Rosario 0.8mg 1 tab PO DAILY 07/18/19 06/22/20 History Apixaban [Eliquis] 2.5 mg PO BID 06/22/20 06/22/20 History Furosemide [Lasix] 20 mg PO BID 06/22/20 06/22/20 History Levothyroxine Sodium [Synthroid] 88 mcg PO DAILY 06/22/20 06/22/20 History Potassium Chloride ER [K-Dur 10] 10 meq PO DAILY 06/22/20 06/22/20 History Allergies Allergy/AdvReac Type Severity Reaction Status Date / Time Penicillins Allergy Severe Rash/Hives Verified 06/22/20 20:12 codeine Allergy Rash/Hives Verified 06/22/20 20:12 diphenhydramine HCl Allergy Swelling Verified 06/22/20 20:12 [From Benadryl] erythromycin base Allergy Rash/Hives Verified 06/22/20 20:12 Iodinated Contrast Media Allergy Rash/Hives Verified 06/22/20 20:12 [Iodinated Contrast Media - IV Dye] iodine Allergy Rash/Hives Verified 06/22/20 20:12 latex Allergy Rash/Hives Verified 06/22/20 20:12 Sulfa (Sulfonamide Allergy Rash/Hives Verified 06/22/20 20:12 Antibiotics) Tetanus Vaccines and Toxoid Allergy Unknown Verified 06/22/20 20:12 [Tetanus Vaccines & Toxoid] Tetracyclines Allergy Rash/Hives Verified 06/22/20 20:12 aspirin AdvReac GI Bleed Verified 06/22/20 20:12 Physical Exam Vitals: Vital Signs Temp Pulse Pulse Pulse Resp BP BP 06/23/20 07:59 06/23/20 07:50 77 18 06/23/20 07:00 98.7 F 77 18 135/60 06/23/20 01:40 98.2 F 77 148/68 06/23/20 00:54 72 215/96 06/22/20 21:55 98.9 F 81 217/103 06/22/20 20:01 76 18 190/91 06/22/20 20:00 18 06/22/20 17:14 18 06/22/20 17:10 68 18 06/22/20 16:38 98.7 F 79 16 181/79 Pulse Ox 06/23/20 07:59 93 L 06/23/20 07:50 06/23/20 07:00 82 L 06/23/20 01:40 93 L 06/23/20 00:54 95 06/22/20 21:55 92 L 06/22/20 20:01 96 06/22/20 20:00 06/22/20 17:14 06/22/20 17:10 06/22/20 16:38 97 Intake and Output 06/22/20 06/23/20 06/23/20 22:59 06:59 14:59 Other: Weight 58.967 kg Results - Lab Results Most recent lab results Calcium 8.6 mg/dL (8.7-10.3) L 06/23/20 05:40 Magnesium 1.7 mg/dL (1.6-2.3) 06/22/20 17:55 06/23/20 05:40 06/23/20 05:40 Assessment and Plan Plan: Assessment: 1. End-stage renal disease maintained on hemodialysis on Wednesday schedule. 2. Anemia of chronic disease. Rule out iron deficiency. 3. Mild volume overload. 4. COPD. 5. Hypokalemia from diuretics. Status post placement. Improved. 6. Chronic diastolic CHF with moderate pulmonary hypertension. 7. Generalized weakness. Plan: Hemodialysis tomorrow with goal 1-1/2-2 L ultrafiltration as able to tolerate. Add oral Lasix. Check iron studies. Thank you for the consultation. I will continue to follow the patient with you during her hospital stay.
[2020-06-23] MEDS ORDERED: FUROSEMIDE 80 MG TAB PO SCH (10:45)
[2020-06-23 11:31] LABS: Glucose,Whole Blood 197 mg/dL (75-99)
--- NOTE | 2020-06-23 11:49 | HP ---
HISTORY AND PHYSICAL An 80-year-old white female with end-stage renal disease, maintained on hemodialysis 3 times a day. She came in with severe weakness, fatigue, hypertension acceleration, fluid overload. Chest x-ray shows CHF. She says she just does not feel good. She feels weak, fatigued, going to pass out. No melena, hematochezia. Oral intake is fair. Hemoglobin is 9.2. PAST MEDICAL HISTORY: Atrial fibrillation, heart failure, COPD, diabetes mellitus, dialysis, DVT, hypertension, dyslipidemia, osteoarthritis, chronic renal disease, syncope. PAST SURGICAL HISTORY: Cholecystectomy, hysterectomy, tonsillectomy, tubal ligation. SOCIAL HISTORY: Has never smoked. No alcohol. No drugs. FAMILY HISTORY: Mother healthy and lived to 79. Son with diabetes mellitus, dialysis, renal disease. Brother with diabetes mellitus. MEDICATIONS: Lipitor 40 mg daily, Protonix 40 mg daily, Imdur 30 mg daily, Apresoline 25 mg b.i.d., Ozempic 0.25 once a week, Cordarone 200 mg b.i.d., Aranesp 40 mcg every week, Nephro 1 tablet daily, Eliquis 2.5 b.i.d., Lasix 20 mg b.i.d., levothyroxine 88 mcg daily, potassium chloride 10 mEq daily. ALLERGIES: PENICILLIN, CODEINE, BENADRYL, ERYTHROMYCIN, IODINE, LATEX, SULFAS, TETANUS, TETRACYCLINE, ASPIRIN. PHYSICAL EXAM: Pulse 77 to 80, temp 98, respiratory rate 16-18, blood pressure is 190 up to 220 last night systolic over 90s. We gave her hydralazine through the IV last night. Calcium level is low at 8.6, magnesium 1.7, hemoglobin is 9.2, white count 6.94. LABORATORY DATA: BUN is 23, creatinine 3.1. ASSESSMENT: 1. End-stage renal disease. 2. Anemia of chronic disease. 3. Fluid overload. 4. Hypokalemia from diuretics. 5. Chronic obstructive pulmonary disease. 6. Diastolic heart failure. 7. Pulmonary hypertension. 8. Generalized weakness. Try to get a little bit more fluid off with dialysis. Has some diuresis orally with Lasix and replace potassium. Check iron studies. Prognosis guarded. MMODL / IJN: [id number] /
--- NOTE | 2020-06-23 12:20 | P.CRDCN ---
History of Present Illness Consult date: 06/23/20 Requesting physician: Alexander Sarkar Reason for Consult (text): high blood pressure Chief complaint: elevated blood pressure, shortness of breath History of present illness: A pleasant 80-year-old female patient who follows with Dr. Solares in the office. She has a history of hypertension, diabetes, hyperlipidemia, end-stage renal disease, undergoes hemodialysis, COPD, pulmonary hypertension and aortic stenosis. She presented to the emergency department with symptoms of shortness of breath, orthopnea and her blood pressure was elevated around 200 systolic at home. Chest x-ray on admission showed mild congestive heart failure with pleural effusions, pulmonary congestion and fluid increased compared to last exam. EKG on admission showed sinus rhythm. She is unsure if she has a history of arrhythmia however she is on amiodarone and anticoagulation at home. Patient's blood pressure was initially elevated following admission but this morning is much better controlled at 135/60. She is currently on amiodarone 200 mg by mouth twice a day, Eliquis 2.5 mg by mouth twice a day, Lipitor 40 mg by mouth daily, Lasix 80 mg by mouth daily, hydralazine 25 mg by mouth twice a day, isosorbide 30 mg by mouth daily, Synthroid, Protonix, potassium supplement. She did have echocardiogram with Doppler study performed in April 2019 which revealed a normal LV systolic function moderately S and moderate pulmonary hypertension. She follows regularly in the office with Dr. Coronel and saw him a couple months ago. Labs on admission showed an T proBNP of 6580 which in June 2019 was up to 23,800. Other labs show sodium 136, potassium 4.2 this morning which was 3.3 yesterday, BUN 23 and creatinine 3.1. She is ordered to undergo hemodialysis tomorrow. Upon examination patient is resting comfortably in bed. She does have the head of the bed somewhat elevated but feels her breathing is significantly better. Her blood pressure is under better control. She has had no chest discomfort or palpitations. Past Medical History Past Medical History: Atrial Fibrillation, Heart Failure, COPD, Diabetes Mellitus, Dialysis, Deep Vein Thrombosis (DVT), Hyperlipidemia, Hypertension, Osteoarthritis (OA), Pneumonia, Renal Disease, Syncope Additional Past Medical History / Comment(s): Pt recently admitted to [facility] on 06/25/19 with Afib RVR, diastolic heart failure, ESRD with hemodialysis, blood clot candelario port area in her chest. Other hx: NIDDM type II, ESRD with hemodialysis on M/W/, chronic anemia, chronic CHF, moderate pulmonary HTN, diverticulitis, lower GI bleed, bowel obstructions with surgery twice. History of Any Multi-Drug Resistant Organisms: None Reported Past Surgical History: Cholecystectomy, Hysterectomy, Tonsillectomy, Tubal Ligation Additional Past Surgical History / Comment(s): R chest dialysis catheter, EGDs/colonoscopies, bowel resections due to obstruction x2, bilateral cataracts removed. Past Anesthesia/Blood Transfusion Reactions: No Reported Reaction Past Psychological History: No Psychological Hx Reported Smoking Status: Never smoker Past Alcohol Use History: None Reported Past Drug Use History: None Reported - Past Family History Mother Family Medical History: No Reported History Additional Family Medical History / Comment(s): Mother was healthy and lived to be 79yrs old. Son(s) Family Medical History: Diabetes Mellitus, Dialysis, Renal Disease Additional Family Medical History / Comment(s): Son had renal failure/dialysis and at the age of 52 yrs. Brother(s) Family Medical History: Diabetes Mellitus Medications and Allergies Home Medications Medication Instructions Recorded Confirmed Type Atorvastatin [Lipitor] 40 mg PO DAILY 05/04/19 06/22/20 History Pantoprazole [Protonix] 40 mg PO ASTRID-CAMIKFSRobert #30 tablet. 05/11/19 06/22/20 Rx Isosorbide Mononitrate ER [Imdur] 30 mg PO DAILY #30 tab.er.24h 06/09/19 06/22/20 Rx hydrALAZINE HCL [Apresoline] 25 mg PO BID #60 tab 06/09/19 06/22/20 Rx Semaglutide [Ozempic] 0.25 mg SQ Q14D 06/25/19 06/22/20 History Amiodarone [Cordarone] 200 mg PO BID tab 07/01/19 06/22/20 Rx Darbepoetin Tien [Aranesp] 40 mcg SQ Q7D syringe 07/01/19 06/22/20 Rx Nephro-Rosario 0.8mg 1 tab PO DAILY 07/18/19 06/22/20 History Apixaban [Eliquis] 2.5 mg PO BID 06/22/20 06/22/20 History Furosemide [Lasix] 20 mg PO BID 06/22/20 06/22/20 History Levothyroxine Sodium [Synthroid] 88 mcg PO DAILY 06/22/20 06/22/20 History Potassium Chloride ER [K-Dur 10] 10 meq PO DAILY 06/22/20 06/22/20 History Allergies Allergy/AdvReac Type Severity Reaction Status Date / Time Penicillins Allergy Severe Rash/Hives Verified 06/22/20 20:12 codeine Allergy Rash/Hives Verified 06/22/20 20:12 diphenhydramine HCl Allergy Swelling Verified 06/22/20 20:12 [From Benadryl] erythromycin base Allergy Rash/Hives Verified 06/22/20 20:12 Iodinated Contrast Media Allergy Rash/Hives Verified 06/22/20 20:12 [Iodinated Contrast Media - IV Dye] iodine Allergy Rash/Hives Verified 06/22/20 20:12 latex Allergy Rash/Hives Verified 06/22/20 20:12 Sulfa (Sulfonamide Allergy Rash/Hives Verified 06/22/20 20:12 Antibiotics) Tetanus Vaccines and Toxoid Allergy Unknown Verified 06/22/20 20:12 [Tetanus Vaccines & Toxoid] Tetracyclines Allergy Rash/Hives Verified 06/22/20 20:12 aspirin AdvReac GI Bleed Verified 06/22/20 20:12 Physical Exam Vitals: Vital Signs Temp Pulse Pulse Pulse Resp BP BP 06/23/20 07:59 06/23/20 07:50 77 18 06/23/20 07:00 98.7 F 77 18 135/60 06/23/20 01:40 98.2 F 77 148/68 06/23/20 00:54 72 215/96 06/22/20 21:55 98.9 F 81 217/103 06/22/20 20:01 76 18 190/91 06/22/20 20:00 18 06/22/20 17:14 18 06/22/20 17:10 68 18 06/22/20 16:38 98.7 F 79 16 181/79 Pulse Ox 06/23/20 07:59 93 L 06/23/20 07:50 06/23/20 07:00 82 L 06/23/20 01:40 93 L 06/23/20 00:54 95 06/22/20 21:55 92 L 06/22/20 20:01 96 06/22/20 20:00 06/22/20 17:14 06/22/20 17:10 06/22/20 16:38 97 Intake and Output 06/22/20 06/23/20 06/23/20 22:59 06:59 14:59 Other: Weight 58.967 kg PHYSICAL EXAMINATION: This is a 80-year-old female in no apparent distress at the time of my examination. VITAL SIGNS: Blood pressure 135/60, heart rate 77, respirations 18, temp 98.7F. Patient is 93 % on 2 L via nasal cannula. HEENT: Head is atraumatic, normocephalic. Pupils are equal, round. Sclerae anicteric. Conjunctivae are clear. Mucous membranes of the mouth are moist. Neck is supple. There is no elevated jugular venous pressure. No carotid bruit is heard. CHEST EXAMINATION: Clear to auscultation bilaterally. No wheezes rales or rhonchi. Respirations even and nonlabored. HEART EXAMINATION: Heart regular, positive S1 and S2 with a grade 3/6 systolic ejection murmur. ABDOMEN: Soft, nontender. Bowel sounds are heard. No organomegaly noted. EXTREMITIES: 2+ peripheral pulses with no evidence of peripheral edema and no calf tenderness noted. NEUROLOGIC EXAMINATION: Patient is awake, alert and oriented x3. Results 06/23/20 05:40 06/23/20 05:40 Cardiac Enzymes 06/22/20 06/22/20 Range/Units 17:55 17:55 AST 35 (14-36) U/L Troponin I 0.020 (0.000-0.034) ng/mL Coagulation 06/22/20 Range/Units 17:55 PT 11.9 (9.0-12.0) sec APTT 24.2 (22.0-30.0) sec CBC 06/22/20 06/23/20 Range/Units 17:55 05:40 WBC 4.1 6.94 (3.8-10.6) k/uL RBC 3.04 L 3.05 L (3.80-5.40) m/uL Hgb 9.3 L 9.2 L (11.4-16.0) gm/dL Hct 27.5 L 28.3 L (34.0-46.0) % Plt Count 260 291 (150-450) k/uL Comprehensive Metabolic Panel 06/22/20 06/23/20 Range/Units 17:55 05:40 Sodium 131 L 136 (137-145) mmol/L Potassium 3.3 L 4.2 (3.5-5.1) mmol/L Chloride 93 L 98 (98-107) mmol/L Carbon Dioxide 30 31.4 (22-30) mmol/L BUN 21 H 23.0 (7-17) mg/dL Creatinine 2.61 H 3.1 H (0.52-1.04) mg/dL Glucose 194 H 150 H (74-99) mg/dL Calcium 8.6 8.6 L (8.4-10.2) mg/dL AST 35 (14-36) U/L ALT 38 H (4-34) U/L Alkaline Phosphatase 87 (38-126) U/L Total Protein 6.1 L (6.3-8.2) g/dL Albumin 3.4 L (3.5-5.0) g/dL Current Medications Generic Name Dose Route Start Last Admin Trade Name Freq PRN Reason Stop Dose Admin Amiodarone HCl 200 mg 06/22/20 21:45 06/23/20 08:07 Amiodarone 200 Mg Tab PO 200 mg BID DORI Administration Apixaban 2.5 mg 06/22/20 21:45 06/23/20 08:07 Apixaban 2.5 Mg Tablet PO 2.5 mg BID DORI Administration Atorvastatin Calcium 40 mg 06/22/20 21:45 06/23/20 08:07 Atorvastatin 40 Mg Tab PO 40 mg DAILY DORI Administration Furosemide 80 mg 06/23/20 10:45 Furosemide 80 Mg Tab PO DAILY DORI Hydralazine HCl 25 mg 06/22/20 21:45 06/23/20 08:07 Hydralazine Hcl 25 Mg Tab PO 25 mg BID DORI Administration Hydralazine HCl 10 mg 06/23/20 00:35 06/23/20 00:59 Hydralazine Hcl 20 Mg/Ml 1 Ml Vial IVP 10 mg Q6HR PRN Administration Blood Pressure - High Isosorbide Mononitrate 30 mg 06/23/20 09:00 06/23/20 08:07 Isosorbide Mononitrate Er 30 Mg Tab.Er.24h PO 30 mg DAILY DORI Administration Levothyroxine Sodium 100 mcg 06/24/20 06:30 Levothyroxine 100 Mcg Tab PO DAILY@0630 [facility] Miscellaneous Information 1 each 06/22/20 22:27 Potassium Replacement Protocol 1 Each Misc MISCELLANE DAILY PRN Per Protocol Protocol Naloxone HCl 0.2 mg 06/22/20 19:34 Naloxone 0.4 Mg/Ml 1 Ml Vial IV Q2M PRN Opioid Reversal Ondansetron HCl 4 mg 06/23/20 00:35 06/23/20 01:00 Ondansetron 4 Mg/2 Ml Vial IVP 4 mg Q6HR PRN Administration Nausea And Vomiting Pantoprazole Sodium 40 mg 06/23/20 07:30 06/23/20 08:07 Pantoprazole 40 Mg Tablet PO 40 mg [id number] DORI Administration Potassium Chloride 20 meq 06/23/20 10:45 Potassium Chloride Er 20 Meq Tab.Er PO DAILY DORI Intake and Output 06/22/20 06/23/20 06/23/20 22:59 06:59 14:59 Other: Weight 58.967 kg 06/23/20 05:40 06/23/20 05:40 Assessment and Plan Assessment: #1 end-stage renal disease, on hemodialysis, scheduled for tomorrow #2 hypertensive urgency, blood pressure improved this morning at 135/60 #3 paroxysmal atrial fibrillation, currently maintaining sinus mechanism #4 moderate aortic stenosis being followed regularly by Dr. 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 At this time no adjustments are warranted. FARM MANAGEMENT ADVISER note has been reviewed, I agree with a documented findings and plan of care. Patient was seen and examined.
[2020-06-23 13:37] LABS: % Iron Saturation 17.81 (12.00-45.00)
[2020-06-23] MEDS: FUROSEMIDE 40 MG TAB PO SCH (13:48)
[2020-06-23 13:49] LABS: Ferritin 922.7 ng/mL (10.0-291.0)
[2020-06-23 16:28] LABS: Glucose,Whole Blood 196 mg/dL (75-99)
[2020-06-23] MEDS: INSULIN ASPART (NovoLOG) 100 UNIT/ML VIAL SQ SCH ×2 (17:19→21:04)
[2020-06-23 20:43] LABS: Glucose,Whole Blood 123 mg/dL (75-99)
[2020-06-24] MEDS: LEVOTHYROXINE 100 MCG TAB PO SCH (05:09)
[2020-06-24 07:11] LABS: Glucose,Whole Blood 192 mg/dL (75-99)
[2020-06-24] MEDS: PANTOPRAZOLE 40 MG TABLET PO SCH (07:53)
[2020-06-24] MEDS: INSULIN ASPART (NovoLOG) 100 UNIT/ML VIAL SQ SCH ×4 (07:53→21:15)
[2020-06-24 11:05] LABS: Basophils # (A) 0.02 X 10*3/uL (0.00-0.10); Basophils % (A) 0.4 %; Eosinophils # (A) 0.25 X 10*3/uL (0.04-0.35); Eosinophils % (A) 4.8 %; HGB 9.2 g/dL (12.0-15.0); Lymphocytes # (A) 1.01 X 10*3/uL (0.90-5.00); Lymphocytes % (A) 19.5 %; MCH 30.4 pg (27.0-32.0); MCHC 31.7 g/dL (32.0-37.0); MCV 95.7 fL (80.0-97.0); Mean Platelet Volume 10.7 fL (9.5-12.2); Monocytes # (A) 0.43 X 10*3/uL (0.20-1.00); Monocytes % (A) 8.3 %; Neutrophils # (A) 3.46 X 10*3/uL (1.80-7.70); Neutrophils % (A) 66.6 %; Platelet Count 310 X 10*3/uL (140-440); RBC 3.03 X 10*6/uL (4.10-5.20); RDW 15.4 % (11.5-14.5); WBC 5.19 X 10*3/uL (4.50-10.00)
[2020-06-24 11:18] LABS: African American GFR (CKD) 12.3 (60.0-200.0); Albumin 3.3 g/dL (3.80-4.90); Albumin/Globulin Ratio 1.1 (1.60-3.17); BUN/Creat Ratio 7.89 Ratio (12.00-20.00); Calcium 8.6 mg/dL (8.7-10.3); Non-African American GFR(CKD) 10.6 (60.0-200.0); Total Bilirubin 0.4 mg/dL (0.3-1.2); Total Protein 6.3 g/dL (6.2-8.2)
--- NOTE | 2020-06-24 11:19 | P.PN ---
Subjective Patient is seen in follow-up for end-stage renal disease. She is maintained on hemodialysis on Wednesday schedule. Tolerating dialysis well. She is on 2 L nasal cannula. No chest pain or shortness of breath. No active complaints. Vital signs are stable. General: The patient appeared well nourished and normally developed. HEENT: Head exam is unremarkable. Neck is without jugular venous distension. LUNGS: Breath sounds decreased. HEART: Rate and Rhythm are regular. ABDOMEN: Soft, nontender. EXTREMITITES: No edema. Objective - Vital Signs Vital signs: Vital Signs Temp 98.0 F 06/24/20 06:50 Pulse 75 06/24/20 06:50 Resp 18 06/24/20 06:50 BP 188/87 06/24/20 06:50 Pulse Ox 91 L 06/24/20 06:50 Intake & Output 06/23/20 06/24/20 06/24/20 18:59 06:59 18:59 Other: # Voids 1 - Labs CBC & Chem 7: 06/24/20 05:09 06/23/20 05:40 Labs: Abnormal Lab Results - Last 24 Hours (Table) 06/23/20 06/23/20 06/23/20 Range/Units 05:40 11:23 16:22 RBC (4.10-5.20) X 10*6/uL Hgb (12.0-15.0) g/dL Hct (37.2-46.3) % MCHC (32.0-37.0) g/dL RDW (11.5-14.5) % POC Glucose (mg/dL) 197 H 196 H (75-99) mg/dL Iron 44 L (50-170) ug/dL Ferritin 922.7 H (10.0-291.0) ng/mL 06/23/20 06/24/20 06/24/20 Range/Units 20:42 05:09 06:52 RBC 3.03 L (4.10-5.20) X 10*6/uL Hgb 9.2 L (12.0-15.0) g/dL Hct 29.0 L (37.2-46.3) % MCHC 31.7 L (32.0-37.0) g/dL RDW 15.4 H (11.5-14.5) % POC Glucose (mg/dL) 123 H 192 H (75-99) mg/dL Iron (50-170) ug/dL Ferritin (10.0-291.0) ng/mL Assessment and Plan Plan: Assessment: 1. End-stage renal disease maintained on hemodialysis on Wednesday schedule. 2. Anemia of chronic disease. Iron deficiency present. 3. Mild volume overload. 4. COPD. 5. Hypokalemia from diuretics. Status post placement. Improved. 6. Chronic diastolic CHF with moderate pulmonary hypertension. 7. Generalized weakness. Plan: Currently seen while undergoing hemodialysis. Maintain oral Lasix. IV iron 2 doses. Blood pressure meds not given yet today - will be given after dialysis. Blood pressure currently 163/65.
[2020-06-24 11:41] LABS: Glucose,Whole Blood 148 mg/dL (75-99)
[2020-06-24] MEDS: AMIODARONE 200 MG TAB PO SCH ×2 (12:06→21:14)
[2020-06-24] MEDS: ISOSORBIDE MONONITRATE ER 30 MG TAB.ER.24H PO SCH (12:06)
[2020-06-24] MEDS: hydrALAZINE HCL 25 MG TAB PO SCH ×2 (12:06→21:14)
[2020-06-24] MEDS: FUROSEMIDE 40 MG TAB PO SCH (12:06)
[2020-06-24] MEDS: ATORVASTATIN 40 MG TAB PO SCH (12:06)
[2020-06-24] MEDS: APIXABAN 2.5 MG TABLET PO SCH ×2 (12:07→21:15)
[2020-06-24] MEDS: POTASSIUM CHLORIDE ER 20 MEQ TAB.ER PO SCH (12:07)
[2020-06-24] MEDS: SODIUM FERRIC GLUCONAT-SUCROSE 125 MG in SODIUM CHLORIDE 0.9% 100 ML IVPB SCH (13:04)
[2020-06-24] MEDS: PROPRANOLOL 10 MG TAB PO SCH ×2 (13:04→21:15)
--- NOTE | 2020-06-24 13:04 | PN ---
PROGRESS NOTE An 80-year-old white female who still remains with elevated hypertension for which [facility] saw the patient. She is maintaining 160s to 170s systolic. She has had dialysis extra done due to fluid overload. Blood pressure has been remaining quite high and she has headaches because of it. PSYCH: She remains anxious, nervous. CARDIOVASCULAR: S1, S2. LUNGS: Rales at the bases. ASSESSMENT: 1. Hypertensive urgency. Blood pressure variable during the day. 2. End-stage renal disease. 3. Paroxysmal atrial fibrillation. 4. Moderate aortic stenosis. 5. Chronic obstructive pulmonary disease. 6. Hypertension. 7. Mild fluid overload. I am going to add a beta debbie for anxiety as well as blood pressure and possible discharge home after dialysis. As mentioned, we will have to continue to follow the aortic stenosis and possibly have [place]. MMODL / IJN: [id number] /
--- NOTE | 2020-06-24 14:42 | P.PN ---
Subjective Progress Note Date: 06/24/20 HISTORY OF PRESENT ILLNESS: Patient examined this morning at the bedside. She is currently undergoing hemodialysis. She denies chest pain or pressure. Denies shortness of breath. Patient's blood pressure elevated this morning. However patient states she has not received her medications this morning yet secondary to hemodialysis. PHYSICAL EXAM: VITAL SIGNS: Reviewed. GENERAL: Well-developed in no acute distress. NECK: Supple. No JVD or thyromegaly LUNGS: Respirations even and unlabored. Lungs essentially clear to auscultation bilaterally. HEART: Regular rate and rhythm. S1 and S2 heard. Systolic murmur noted. EXTREMITIES: Normal range of motion. No clubbing or cyanosis. Peripheral pulses intact. No lower extremity edema ASSESSMENT: End-stage renal disease, on hemodialysis Hypertensive urgency Paroxysmal atrial fibrillation, currently maintaining sinus mechanism Moderate aortic stenosis COPD Pulmonary hypertension PLAN: Patient with elevated BP this morning. However she has not received her morning medications at the time of my examination. Continue to trend BP after medication administration and will make adjustments as needed Further recommendations pending patient course Nurse practitioner note has been reviewed by physician. Signing provider agrees with the documented findings, assessment, and plan of care. Objective - Vital Signs Vital signs: Vital Signs Temp 98.7 F 06/24/20 14:00 Pulse 62 06/24/20 14:00 Resp 17 06/24/20 14:00 BP 161/79 06/24/20 14:00 Pulse Ox 97 06/24/20 14:00 Intake & Output 06/23/20 06/24/20 06/24/20 18:59 06:59 18:59 Output Total 1500 Balance -1500 Weight 58.967 kg Output: Hemodialysis 1500 Other: # Voids 1 - Labs CBC & Chem 7: 06/24/20 05:09 06/24/20 05:09 Labs: Abnormal Lab Results - Last 24 Hours (Table) 06/23/20 06/23/20 06/24/20 Range/Units 16:22 20:42 05:09 RBC 3.03 L (4.10-5.20) X 10*6/uL Hgb 9.2 L (12.0-15.0) g/dL Hct 29.0 L (37.2-46.3) % MCHC 31.7 L (32.0-37.0) g/dL RDW 15.4 H (11.5-14.5) % BUN (9.0-27.0) mg/dL Creatinine (0.6-1.5) mg/dL Est GFR (CKD-EPI)AfAm (60.0-200.0) Est GFR (CKD-EPI)NonAf (60.0-200.0) BUN/Creatinine Ratio (12.00-20.00) Ratio Glucose (70-110) mg/dL POC Glucose (mg/dL) 196 H 123 H (75-99) mg/dL Calcium (8.7-10.3) mg/dL Albumin (3.80-4.90) g/dL Albumin/Globulin Ratio (1.60-3.17) g/dL 06/24/20 06/24/20 06/24/20 Range/Units 05:09 06:52 11:38 RBC (4.10-5.20) X 10*6/uL Hgb (12.0-15.0) g/dL Hct (37.2-46.3) % MCHC (32.0-37.0) g/dL RDW (11.5-14.5) % BUN 30.0 H (9.0-27.0) mg/dL Creatinine 3.8 H (0.6-1.5) mg/dL Est GFR (CKD-EPI)AfAm 12.3 L (60.0-200.0) Est GFR (CKD-EPI)NonAf 10.6 L (60.0-200.0) BUN/Creatinine Ratio 7.89 L (12.00-20.00) Ratio Glucose 151 H (70-110) mg/dL POC Glucose (mg/dL) 192 H 148 H (75-99) mg/dL Calcium 8.6 L (8.7-10.3) mg/dL Albumin 3.30 L (3.80-4.90) g/dL Albumin/Globulin Ratio 1.10 L (1.60-3.17) g/dL
[2020-06-24 16:45] LABS: Glucose,Whole Blood 232 mg/dL (75-99)
[2020-06-24 21:04] LABS: Glucose,Whole Blood 142 mg/dL (75-99)
[2020-06-25] MEDS: hydrALAZINE HCL 20 MG/ML 1 ML VIAL IVP PRN (02:53)
[2020-06-25] MEDS: LEVOTHYROXINE 100 MCG TAB PO SCH (05:37)
[2020-06-25 07:15] LABS: Glucose,Whole Blood 162 mg/dL (75-99)
[2020-06-25] MEDS: POTASSIUM CHLORIDE ER 20 MEQ TAB.ER PO SCH (07:51)
[2020-06-25] MEDS: PANTOPRAZOLE 40 MG TABLET PO SCH (07:51)
[2020-06-25] MEDS: hydrALAZINE HCL 25 MG TAB PO SCH (07:51)
[2020-06-25] MEDS: INSULIN ASPART (NovoLOG) 100 UNIT/ML VIAL SQ SCH ×4 (07:51→21:04)
[2020-06-25] MEDS: ATORVASTATIN 40 MG TAB PO SCH (07:51)
[2020-06-25] MEDS: APIXABAN 2.5 MG TABLET PO SCH ×2 (07:51→21:04)
[2020-06-25] MEDS: FUROSEMIDE 40 MG TAB PO SCH (07:52)
[2020-06-25] MEDS: PROPRANOLOL 10 MG TAB PO SCH ×2 (07:52→21:06)
[2020-06-25] MEDS: AMIODARONE 200 MG TAB PO SCH ×2 (07:52→21:04)
[2020-06-25] MEDS: ISOSORBIDE MONONITRATE ER 30 MG TAB.ER.24H PO SCH (07:52)
[2020-06-25] MEDS: SODIUM FERRIC GLUCONAT-SUCROSE 125 MG in SODIUM CHLORIDE 0.9% 100 ML IVPB SCH (09:51)
[2020-06-25] MEDS: amLODIPine 5 MG TAB PO SCH (10:00)
[2020-06-25] MEDS: hydrALAZINE HCL 50 MG TAB PO SCH ×3 (10:00→21:06)
--- NOTE | 2020-06-25 10:41 | P.PN ---
Subjective Progress Note Date: 06/25/20 Principal diagnosis: Hypertension emergency This is an 80-year-old female patient with end stage renal disease as well as hypertension as well as paroxysmal atrial fibrillation and aortic stenosis was admitted to the hospital with elevated blood pressure. She was diagnosed with hypertension emergency. The patient was seen today. She is asymptomatic from a cardiovascular sta ndpoint overview. The blood pressure continues to be elevated and the dose of hydralazine was increased by the nephrology service. Otherwise she continues to be on oral anticoagulation regarding the atrial fibrillation. She denies any chest pain or chest discomfort or shortness of breath or dizziness or lightheadedness. Objective - Vital Signs Vital signs: Vital Signs Temp 98.1 F 06/25/20 07:56 Pulse 60 06/25/20 09:49 Resp 16 06/25/20 07:56 BP 168/79 06/25/20 09:49 Pulse Ox 98 06/25/20 07:56 Intake & Output 06/24/20 06/25/20 06/25/20 18:59 06:59 18:59 Intake Total 100 Output Total 1500 Balance -1400 Weight 58.967 kg 63 kg Intake: Intake, IV Titration 100 Amount Sodium Ferric Gluconat- 100 Sucrose 125 mg In Sodium Chloride 0.9% 100 ml @ 100 mls/hr IVPB DAILY [facility] Rx#:[id number] Output: Hemodialysis 1500 Other: Voiding Method Toilet - Constitutional General appearance: Present: no acute distress - Respiratory Respiratory: bilateral: diminished - Cardiovascular Rhythm: regular Heart sounds: normal: S1, S2 Abnormal Heart Sounds: Present: systolic murmur - Labs CBC & Chem 7: 06/24/20 05:09 06/24/20 05:09 Labs: Abnormal Lab Results - Last 24 Hours (Table) 06/24/20 06/24/20 06/24/20 Range/Units 05:09 05:09 11:38 RBC 3.03 L (4.10-5.20) X 10*6/uL Hgb 9.2 L (12.0-15.0) g/dL Hct 29.0 L (37.2-46.3) % MCHC 31.7 L (32.0-37.0) g/dL RDW 15.4 H (11.5-14.5) % BUN 30.0 H (9.0-27.0) mg/dL Creatinine 3.8 H (0.6-1.5) mg/dL Est GFR (CKD-EPI)AfAm 12.3 L (60.0-200.0) Est GFR (CKD-EPI)NonAf 10.6 L (60.0-200.0) BUN/Creatinine Ratio 7.89 L (12.00-20.00) Ratio Glucose 151 H (70-110) mg/dL POC Glucose (mg/dL) 148 H (75-99) mg/dL Calcium 8.6 L (8.7-10.3) mg/dL Albumin 3.30 L (3.80-4.90) g/dL Albumin/Globulin Ratio 1.10 L (1.60-3.17) g/dL 06/24/20 06/24/20 06/25/20 Range/Units 16:44 21:02 06:56 RBC (4.10-5.20) X 10*6/uL Hgb (12.0-15.0) g/dL Hct (37.2-46.3) % MCHC (32.0-37.0) g/dL RDW (11.5-14.5) % BUN (9.0-27.0) mg/dL Creatinine (0.6-1.5) mg/dL Est GFR (CKD-EPI)AfAm (60.0-200.0) Est GFR (CKD-EPI)NonAf (60.0-200.0) BUN/Creatinine Ratio (12.00-20.00) Ratio Glucose (70-110) mg/dL POC Glucose (mg/dL) 232 H 142 H 162 H (75-99) mg/dL Calcium (8.7-10.3) mg/dL Albumin (3.80-4.90) g/dL Albumin/Globulin Ratio (1.60-3.17) g/dL Assessment and Plan Assessment: Assessment #1 into stage renal disease on hemodialysis #2 hypertension urgency #3 proximal atrial fibrillation #4 aortic stenosis Plan #1 the dose of hydralazine was increased by the nephrology service #2 continue monitor the blood pressure and adjust the dose accordingly #3 follow-up with the patient
[2020-06-25 11:17] LABS: Glucose,Whole Blood 119 mg/dL (75-99)
--- NOTE | 2020-06-25 11:31 | P.PN ---
Subjective Patient is seen in follow-up for end-stage renal disease. She is maintained on hemodialysis on Wednesday schedule. Tolerated dialysis well yesterday with 1.5 L ultrafiltration. She is currently on room air. No chest pain or shortness of breath. Blood pressure on the higher side. Vital signs are stable. General: The patient appeared well nourished and normally developed. HEENT: Head exam is unremarkable. Neck is without jugular venous distension. LUNGS: Breath sounds decreased. HEART: Rate and Rhythm are regular. ABDOMEN: Soft, nontender. EXTREMITITES: No edema. Objective - Vital Signs Vital signs: Vital Signs Temp 98.1 F 06/25/20 07:56 Pulse 60 06/25/20 09:49 Resp 16 06/25/20 07:56 BP 168/79 06/25/20 09:49 Pulse Ox 98 06/25/20 07:56 Intake & Output 06/24/20 06/25/20 06/25/20 18:59 06:59 18:59 Intake Total 100 Output Total 1500 Balance -1400 Weight 58.967 kg 63 kg Intake: Intake, IV Titration 100 Amount Sodium Ferric Gluconat- 100 Sucrose 125 mg In Sodium Chloride 0.9% 100 ml @ 100 mls/hr IVPB DAILY [facility] Rx#:[id number] Output: Hemodialysis 1500 Other: Voiding Method Toilet - Labs CBC & Chem 7: 06/24/20 05:09 06/24/20 05:09 Labs: Abnormal Lab Results - Last 24 Hours (Table) 06/24/20 06/24/20 06/24/20 Range/Units 11:38 16:44 21:02 POC Glucose (mg/dL) 148 H 232 H 142 H (75-99) mg/dL 06/25/20 06/25/20 Range/Units 06:56 11:05 POC Glucose (mg/dL) 162 H 119 H (75-99) mg/dL Assessment and Plan Plan: Assessment: 1. End-stage renal disease maintained on hemodialysis on Wednesday schedule. 2. Anemia of chronic disease. Iron deficiency present. 3. Mild volume overload. Improved with UF yesterday. 4. COPD. 5. Hypokalemia from diuretics. Status post placement. Improved. 6. Chronic diastolic CHF with moderate pulmonary hypertension. 7. Generalized weakness. 8. Hypertension with chronic kidney disease. Blood pressure high. Plan: Hemodialysis tomorrow. Maintain oral Lasix. IV iron 2 doses. Second dose today. Hydralazine dose was increased and amlodipine was added for blood pressure control. However the patient is refusing these blood pressure medication adjustments and wants to discuss with her primary attending. Also spoke to the patient's daughter. Nurse was also present. She will call the primary attending to get further recommendations for blood pressure control.
--- NOTE | 2020-06-25 12:20 | ECHOF ---
Referral Reason:dyspnea MEASUREMENTS -------- HEIGHT: 157.5 cm WEIGHT: 62.6 kg BP: IVSd: 1.3 cm (0.6 - 1.1) LVIDd: 4.1 cm (3.9 - 5.3) LVPWd: 1.6 cm (0.6 - 1.1) IVSs: 1.6 cm LVIDs: 3.0 cm LVPWs: 1.4 cm LA Diam: 3.7 cm (2.7 - 3.8) LAESV Index (A-L): 52.00 ml/m Ao Diam: 2.5 cm (2.0 - 3.7) AV Cusp: 1.3 cm (1.5 - 2.6) LA Diam: 5.0 cm (2.7 - 3.8) MV EXCURSION: 19.436 mm (> 18.000) MV EF SLOPE: 110 mm/s (70 - 150) EPSS: 0.7 cm AV maxP.98 mmHg AV maxP.98 mmHg AV meanP.23 mmHg RAP: 10.00 mmHg RVSP: 71.22 mmHg FINDINGS -------- Undetermined rhythm. This was a technically good study. The left ventricular size is normal. There is moderate concentric left ventricular hypertrophy. O verall left ventricular systolic function is low-normal with, an EF between 50 - 55 %. The right ventricle is normal in size. LA is severely dilated >40 ml/m2 The right atrial size is normal. There is ekgkspxt-dk-rjaomw aortic stenosis present. Peak/mean gradient across the Aortic Valve is 55.98mmHg / 30.23mmHg. Moderate mitral regurgitation is present. Mild tricuspid regurgitation present. There is moderate to severe pulmonary hypertension. The rig ht ventricular systolic pressure, as measured by Doppler, is 71.22mmHg. There is no pulmonic regurgitation present. The aortic root size is normal. There is a trivial pericardial effusion present. Large Pleural Effusion. CONCLUSIONS -------- 1. The left ventricular size is normal. 2. There is moderate concentric left ventricular hypertrophy. 3. Overall left ventricular systolic function is low-normal with, an EF between 50 - 55 %. 4. The right ventricle is normal in size. 5. LA is severely dilated >40 ml/m2 6. The right atrial size is normal. 7. There is agjhfpea-ga-diqhin aortic stenosis present. 8. Peak/mean gradient across the Aortic Valve is 55.98mmHg / 30.23mmHg. 9. Moderate mitral regurgitation is present. 10. Mild tricuspid regurgitation present. 11. There is moderate to severe pulmonary hypertension. 12. The right ventricular systolic pressure, as measured by Doppler, is 71.22mmHg. 13. There is no pulmonic regurgitation present. 14. The aortic root size is normal. 15. There is a trivial pericardial effusion present. 16. Large Pleural Effusion. CHARGE AIDE: Kaila Bishop RDCS
[2020-06-25] MEDS: ACETAMINOPHEN TAB 325 MG TAB PO PRN (15:53)
[2020-06-25 16:58] LABS: Glucose,Whole Blood 214 mg/dL (75-99)
--- NOTE | 2020-06-25 17:40 | PN ---
PROGRESS NOTE Blood pressure acceleration today. She was started on amlodipine and a diuretic due to hypertension acceleration. Plan is to discharge her home tomorrow. She had an echo today by cup setter lockstitch with ejection fraction of 50% to 55%. Left atrium is severely dilated, moderate to severe aortic stenosis, moderate mitral regurgitation and severe pulmonary hypertension, large pleural effusion. We are going to have to get Pulmonary to look at the pleural effusion and possibly do a CT scan on her lung to assess this prior to discharge. CARDIOVASCULAR: S1, S2. LUNGS: Clear. GI: Soft. HEMATOLOGY: Negative Homans. PSYCH: Fair mood and affect. ASSESSMENT: 1. Large pleural effusion. 2. Diastolic heart failure. 3. End-stage renal disease. 4. Hypertension acceleration secondary to pleural effusion. Prognosis guarded. Please see further orders. Get pulmonary consult. Get a CT scan of the lungs. MMODL / IJN: [id number] /
--- NOTE | 2020-06-25 18:26 | CT ---
EXAMINATION TYPE: CT chest wo con DATE OF EXAM: 06/25/2020 COMPARISON: 05/06/2019 HISTORY: Plueral effusion CT DLP: 241.4 mGycm Automated exposure control for dose reduction was used. Images obtained from the thoracic inlet to the diaphragm with no contrast. Heart is enlarged. There is mild to moderate bilateral pleural effusions. There is bilateral lower lo be pulmonary airspace infiltrate and atelectasis. There is mitral annulus calcification. There is no pericardial effusion. There are some enlarged paratracheal lymph nodes which measure up to almost 2 c m. There are no hilar masses. There is coronary artery calcification. Bony thorax is intact. Sternum is intact. IMPRESSION: Cardiomegaly. Bilateral moderate pleural effusions with lower lobe pulmonary airspace infiltrate and atelectasis. Lung disease is mostly new compared to old exam. There is some peritracheal lymphadenopathy which appears new compared to old exam.
[2020-06-25 20:50] LABS: Glucose,Whole Blood 155 mg/dL (75-99)
[2020-06-26] MEDS: hydrALAZINE HCL 20 MG/ML 1 ML VIAL IVP PRN (03:01)
[2020-06-26] MEDS: LEVOTHYROXINE 100 MCG TAB PO SCH (05:58)
[2020-06-26] MEDS: ACETAMINOPHEN TAB 325 MG TAB PO PRN (05:59)
[2020-06-26 07:35] LABS: Glucose,Whole Blood 185 mg/dL (75-99)
[2020-06-26] MEDS: hydrALAZINE HCL 50 MG TAB PO SCH ×3 (07:35→22:47)
[2020-06-26] MEDS: ATORVASTATIN 40 MG TAB PO SCH (07:36)
[2020-06-26] MEDS: AMIODARONE 200 MG TAB PO SCH ×2 (07:36→20:51)
[2020-06-26] MEDS: APIXABAN 2.5 MG TABLET PO SCH ×2 (07:36→20:51)
[2020-06-26] MEDS: ISOSORBIDE MONONITRATE ER 30 MG TAB.ER.24H PO SCH (07:36)
[2020-06-26] MEDS: FUROSEMIDE 40 MG TAB PO SCH (07:36)
[2020-06-26] MEDS: amLODIPine 5 MG TAB PO SCH (07:36)
[2020-06-26] MEDS: PANTOPRAZOLE 40 MG TABLET PO SCH (07:36)
[2020-06-26] MEDS: INSULIN ASPART (NovoLOG) 100 UNIT/ML VIAL SQ SCH ×4 (07:36→20:48)
[2020-06-26] MEDS: POTASSIUM CHLORIDE ER 20 MEQ TAB.ER PO SCH (07:36)
[2020-06-26] MEDS: PROPRANOLOL 10 MG TAB PO SCH ×2 (07:37→20:51)
[2020-06-26] MEDS: SODIUM FERRIC GLUCONAT-SUCROSE 125 MG in SODIUM CHLORIDE 0.9% 100 ML IVPB SCH (08:54)
--- NOTE | 2020-06-26 10:35 | P.PN ---
Subjective Progress Note Date: 06/26/20 Principal diagnosis: Hypertension emergency This is an 80-year-old female patient with end stage renal disease as well as hypertension as well as paroxysmal atrial fibrillation and aortic stenosis was admitted to the hospital with elevated blood pressure. She was diagnosed with hypertension emergency. The patient was seen today. Unfortunately the pressure continues to fluctuate. Initially we were going to increase the dose of hydralazine but then the pressure tended to be in the low 100s and because of that we are holding on increasing the dose of hydralazine at this point and we'll continue the current medical regimen and monitor the patient for additional 24 hours. She denies any chest pain or chest discomfort. Currently she is having dialysis. Objective - Vital Signs Vital signs: Vital Signs Temp 98.4 F 06/26/20 07:50 Pulse 66 06/26/20 07:50 Resp 20 06/26/20 09:30 BP 191/81 06/26/20 07:50 Pulse Ox 91 L 06/26/20 07:50 Intake & Output 06/25/20 06/26/20 06/26/20 18:59 06:59 18:59 Intake Total 100 Balance 100 Weight 62 kg Intake: Intake, IV Titration 100 Amount Sodium Ferric Gluconat- 100 Sucrose 125 mg In Sodium Chloride 0.9% 100 ml @ 100 mls/hr IVPB DAILY [facility] Rx#:[id number] Other: Voiding Method Toilet Toilet Toilet - Constitutional General appearance: Present: no acute distress - Respiratory Respiratory: bilateral: CTA - Cardiovascular Rhythm: regular Heart sounds: normal: S1, S2 Abnormal Heart Sounds: Present: systolic murmur - Labs CBC & Chem 7: 06/24/20 05:09 06/24/20 05:09 Labs: Abnormal Lab Results - Last 24 Hours (Table) 06/25/20 06/25/20 06/25/20 Range/Units 11:05 16:56 20:49 POC Glucose (mg/dL) 119 H 214 H 155 H (75-99) mg/dL 06/26/20 Range/Units 07:27 POC Glucose (mg/dL) 185 H (75-99) mg/dL Assessment and Plan Assessment: Assessment #1 into stage renal disease on hemodialysis #2 hypertension urgency #3 proximal atrial fibrillation #4 aortic stenosis Plan #1 continue the current medical regimen #2 continue monitor the blood pressure and adjust the dose accordingly #3 follow-up with the patient
--- NOTE | 2020-06-26 10:50 | P.CNPUL ---
History of Present Illness Consult date: 06/26/20 Reason for consult: dyspnea, pleural effusion Chief complaint: Shortness of breath History of present illness: this is a pleasant 80-year-old female with prior medical history of multiple complex medical problem including chronic atrial fibrillation COPD and diabetes has been on hemodialysis presented into the emergency department with increasing shortness of breath and weakness, symptoms started for several days, no fever or chills present, patient gets dialysis Wednesday, patient noted to have a hypertensive urgency on arrival with blood pressure 120/90, BUN/creatinine is 30 and 3.8, mid chest x-ray is suggestive of CHF-like changes a small pleural effusionThomas latest echocardiogram during this hospitalization revealed ejection fraction of 55% with dilated left atria severe pulmonary hypertension along with moderate to severe aortic stenosis, computed tomography scan of the chest performed revealed a small to moderate bilateral pleural effusion, no pericardial effusion noted, some mild tracheal lymphadenopathy noted no hilar masses seen, lower lobe pneumonia cannot be excluded, consider starting antibiotics like Rocephin, patient also has history of snoring in the past Review of Systems All systems: negative Past Medical History Past Medical History: Atrial Fibrillation, Heart Failure, COPD, Diabetes Mellitus, Dialysis, Deep Vein Thrombosis (DVT), Hyperlipidemia, Hypertension, Osteoarthritis (OA), Pneumonia, Renal Disease, Syncope Additional Past Medical History / Comment(s): Pt recently admitted to [facility] on 06/25/19 with Afib RVR, diastolic heart failure, ESRD with hemodialysis, blood clot candelario port area in her chest. Other hx: NIDDM type II, ESRD with hemodialysis on //, chronic anemia, chronic CHF, moderate pulmonary HTN, diverticulitis, lower GI bleed, bowel obstructions with surgery twice. History of Any Multi-Drug Resistant Organisms: None Reported Past Surgical History: Cholecystectomy, Hysterectomy, Tonsillectomy, Tubal Ligation Additional Past Surgical History / Comment(s): R chest dialysis catheter, EGDs/colonoscopies, bowel resections due to obstruction x2, bilateral cataracts removed. Past Anesthesia/Blood Transfusion Reactions: No Reported Reaction Past Psychological History: No Psychological Hx Reported Smoking Status: Never smoker Past Alcohol Use History: None Reported Past Drug Use History: None Reported - Past Family History Mother Family Medical History: No Reported History Additional Family Medical History / Comment(s): Mother was healthy and lived to be 79yrs old. Son(s) Family Medical History: Diabetes Mellitus, Dialysis, Renal Disease Additional Family Medical History / Comment(s): Son had renal failure/dialysis and at the age of 52 yrs. Brother(s) Family Medical History: Diabetes Mellitus Medications and Allergies Home Medications Medication Instructions Recorded Confirmed Type Atorvastatin [Lipitor] 40 mg PO DAILY 05/04/19 06/22/20 History Pantoprazole [Protonix] 40 mg PO AC-BRKFST #30 tablet.dr 05/11/19 06/22/20 Rx Isosorbide Mononitrate ER [Imdur] 30 mg PO DAILY #30 tab.er.24h 06/09/19 06/22/20 Rx hydrALAZINE HCL [Apresoline] 25 mg PO BID #60 tab 06/09/19 06/22/20 Rx Semaglutide [Ozempic] 0.25 mg SQ Q14D 06/25/19 06/22/20 History Amiodarone [Cordarone] 200 mg PO BID tab 07/01/19 06/22/20 Rx Darbepoetin Tien [Aranesp] 40 mcg SQ Q7D syringe 07/01/19 06/22/20 Rx Nephro-Rosario 0.8mg 1 tab PO DAILY 07/18/19 06/22/20 History Apixaban [Eliquis] 2.5 mg PO BID 06/22/20 06/22/20 History Furosemide [Lasix] 20 mg PO BID 06/22/20 06/22/20 History Levothyroxine Sodium [Synthroid] 88 mcg PO DAILY 06/22/20 06/22/20 History Potassium Chloride ER [K-Dur 10] 10 meq PO DAILY 06/22/20 06/22/20 History Allergies Allergy/AdvReac Type Severity Reaction Status Date / Time Penicillins Allergy Severe Rash/Hives Verified 06/22/20 20:12 codeine Allergy Rash/Hives Verified 06/22/20 20:12 diphenhydramine HCl Allergy Swelling Verified 06/22/20 20:12 [From Benadryl] erythromycin base Allergy Rash/Hives Verified 06/22/20 20:12 Iodinated Contrast Media Allergy Rash/Hives Verified 06/22/20 20:12 [Iodinated Contrast Media - IV Dye] iodine Allergy Rash/Hives Verified 06/22/20 20:12 latex Allergy Rash/Hives Verified 06/22/20 20:12 Sulfa (Sulfonamide Allergy Rash/Hives Verified 06/22/20 20:12 Antibiotics) Tetanus Vaccines and Toxoid Allergy Unknown Verified 06/22/20 20:12 [Tetanus Vaccines & Toxoid] Tetracyclines Allergy Rash/Hives Verified 06/22/20 20:12 aspirin AdvReac GI Bleed Verified 06/22/20 20:12 Physical Exam Vitals: Vital Signs Temp Pulse Resp BP Pulse Ox 06/26/20 09:30 20 06/26/20 07:50 98.4 F 66 20 191/81 91 L 06/26/20 04:40 166/82 06/26/20 02:41 97.7 F 53 L 199/88 97 06/25/20 19:06 98.1 F 52 L 171/80 97 06/25/20 14:00 97.3 F L 61 16 149/78 98 Intake and Output 06/25/20 06/26/20 06/26/20 22:59 06:59 14:59 Other: Voiding Method Toilet Toilet Weight 62 kg - Constitutional General appearance: average body habitus, cooperative, disheveled - EENT Eyes: PERRLA ENT: hard of hearing, other Ears: bilateral: normal - Neck Neck: normal ROM Carotids: bilateral: upstroke normal Thyroid: bilateral: normal size - Respiratory Respiratory: bilateral: diminished (at the bases), dullness (at the bases), rales (at the bases) - Cardiovascular Rhythm: irregularly irregular Heart sounds: normal: S1, S2 - Gastrointestinal General gastrointestinal: normal bowel sounds, soft - Integumentary Integumentary: normal turgor - Neurologic Neurologic: CNII-XII intact - Musculoskeletal Musculoskeletal: gait normal, generalized weakness, strength equal bilaterally - Psychiatric Psychiatric: A&O x's 3, appropriate affect, intact judgment & insight Results - Laboratory Findings CBC and BMP: 06/24/20 05:09 06/24/20 05:09 PT/INR, D-dimer PT 11.9 sec (9.0-12.0) 06/22/20 17:55 INR 1.1 (<1.2) 06/22/20 17:55 Abnormal lab findings: Abnormal Labs 06/22/20 06/22/20 06/22/20 17:05 17:55 17:55 RBC 3.04 L Hgb 9.3 L Hct 27.5 L MCHC RDW Lymphocytes # 0.7 L Sodium 131 L Potassium 3.3 L Chloride 93 L BUN 21 H Creatinine 2.61 H Est GFR (CKD-EPI)AfAm Est GFR (CKD-EPI)NonAf BUN/Creatinine Ratio Glucose 194 H POC Glucose (mg/dL) 206 H Calcium Iron Ferritin ALT 38 H Total Protein 6.1 L Albumin 3.4 L Albumin/Globulin Ratio TSH 7.190 H 06/23/20 06/23/20 06/23/20 05:40 05:40 05:40 RBC 3.05 L Hgb 9.2 L Hct 28.3 L MCHC RDW 15.3 H Lymphocytes # 0.51 L Sodium Potassium Chloride BUN Creatinine 3.1 H Est GFR (CKD-EPI)AfAm 15.7 L Est GFR (CKD-EPI)NonAf 13.5 L BUN/Creatinine Ratio 7.42 L Glucose 150 H POC Glucose (mg/dL) Calcium 8.6 L Iron 44 L Ferritin 922.7 H ALT Total Protein Albumin Albumin/Globulin Ratio TSH 06/23/20 06/23/20 06/23/20 07:20 11:23 16:22 RBC Hgb Hct MCHC RDW Lymphocytes # Sodium Potassium Chloride BUN Creatinine Est GFR (CKD-EPI)AfAm Est GFR (CKD-EPI)NonAf BUN/Creatinine Ratio Glucose POC Glucose (mg/dL) 155 H 197 H 196 H Calcium Iron Ferritin ALT Total Protein Albumin Albumin/Globulin Ratio [facility] 06/23/20 06/24/20 06/24/20 20:42 05:09 05:09 RBC 3.03 L Hgb 9.2 L Hct 29.0 L MCHC 31.7 L RDW 15.4 H Lymphocytes # Sodium Potassium Chloride BUN 30.0 H Creatinine 3.8 H Est GFR (CKD-EPI)AfAm 12.3 L Est GFR (CKD-EPI)NonAf 10.6 L BUN/Creatinine Ratio 7.89 L Glucose 151 H POC Glucose (mg/dL) 123 H Calcium 8.6 L Iron Ferritin ALT Total Protein Albumin 3.30 L Albumin/Globulin Ratio 1.10 L [facility] 06/24/20 06/24/20 06/24/20 06:52 11:38 16:44 RBC Hgb Hct MCHC RDW Lymphocytes # Sodium Potassium Chloride BUN Creatinine Est GFR (CKD-EPI)AfAm Est GFR (CKD-EPI)NonAf BUN/Creatinine Ratio Glucose POC Glucose (mg/dL) 192 H 148 H 232 H Calcium Iron Ferritin ALT Total Protein Albumin Albumin/Globulin Ratio TSH 06/24/20 06/25/20 06/25/20 21:02 06:56 11:05 RBC Hgb Hct MCHC RDW Lymphocytes # Sodium Potassium Chloride BUN Creatinine Est GFR (CKD-EPI)AfAm Est GFR (CKD-EPI)NonAf BUN/Creatinine Ratio Glucose POC Glucose (mg/dL) 142 H 162 H 119 H Calcium Iron Ferritin ALT Total Protein Albumin Albumin/Globulin Ratio TSH 06/25/20 06/25/20 06/26/20 16:56 20:49 07:27 RBC Hgb Hct MCHC RDW Lymphocytes # Sodium Potassium Chloride BUN Creatinine Est GFR (CKD-EPI)AfAm Est GFR (CKD-EPI)NonAf BUN/Creatinine Ratio Glucose POC Glucose (mg/dL) 214 H 155 H 185 H Calcium Iron Ferritin ALT Total Protein Albumin Albumin/Globulin Ratio TSH - Diagnostic Findings Chest x-ray: report reviewed, image reviewed CT scan - chest: report reviewed (finding as noted above), image reviewed Assessment and Plan Assessment: bilateral small to moderate pleural effusion left lower lobe pneumonia Acute exacerbation of congestive heart failure likely diastolic heart failure Valvular heart disease with moderate to severe aortic stenosis End-stage renal disease on hemodialysis Chronic atrial fibrillation dyslipidemia Hypertensive urgency Hypothyroidism Type 2 diabetes mellitus Plan: continue hemodialysis as planned With intent to remove more fluid Ultrasound of the chest bilateral Need to optimize control of blood pressure IV Rocephin Further recommendations pending plan of care as per clinical response of the patient Time with Patient: Greater than 30
[2020-06-26 11:28] LABS: Glucose,Whole Blood 116 mg/dL (75-99)
--- NOTE | 2020-06-26 11:28 | P.PN ---
Subjective Patient is seen in follow-up for end-stage renal disease. She is maintained on hemodialysis on Wednesday schedule. Tolerating dialysis well. She is currently on 2 L nasal cannula. No chest pain or shortness of breath. Blood pressure high this morning and she did receive the amlodipine and hydralazine. It is a little on the lower side during dialysis. Vital signs are stable. General: The patient appeared well nourished and normally developed. HEENT: Head exam is unremarkable. Neck is without jugular venous distension. LUNGS: Breath sounds decreased. HEART: Rate and Rhythm are regular. ABDOMEN: Soft, nontender. EXTREMITITES: No edema. Objective - Vital Signs Vital signs: Vital Signs Temp 98.4 F 06/26/20 07:50 Pulse 66 06/26/20 07:50 Resp 20 06/26/20 09:30 BP 127/63 06/26/20 11:23 Pulse Ox 91 L 06/26/20 07:50 Intake & Output 06/25/20 06/26/20 06/26/20 18:59 06:59 18:59 Intake Total 100 Balance 100 Weight 62 kg Intake: Intake, IV Titration 100 Amount Sodium Ferric Gluconat- 100 Sucrose 125 mg In Sodium Chloride 0.9% 100 ml @ 100 mls/hr IVPB DAILY [facility] Rx#:[id number] Other: Voiding Method Toilet Toilet Toilet - Labs CBC & Chem 7: 06/24/20 05:09 06/24/20 05:09 Labs: Abnormal Lab Results - Last 24 Hours (Table) 06/25/20 06/25/20 06/26/20 Range/Units 16:56 20:49 07:27 POC Glucose (mg/dL) 214 H 155 H 185 H (75-99) mg/dL Assessment and Plan Plan: Assessment: 1. End-stage renal disease maintained on hemodialysis on Wednesday schedule. 2. Anemia of chronic disease. Iron deficiency present. Status post IV iron. 3. Mild volume overload. 4. COPD. 5. Hypokalemia from diuretics. Status post placement. Improved. 6. Chronic diastolic CHF with moderate pulmonary hypertension. 7. Generalized weakness. 8. Hypertension with chronic kidney disease. Blood pressure better controlled. Plan: Currently seen while undergoing hemodialysis. Maintain oral Lasix. Maintain current antihypertensives. Hold hydralazine for systolic blood pressure less than 125.
--- NOTE | 2020-06-26 15:40 | CDI ---
Documentation Clarification Form Date: 06/26/2020 03:07:00 PM From: Kristen Khan RN, CCDS Admit Date: 06/26/2020 01:52:00 PM Patient Name: Page Travis Visit Number: [id number] Discharge Date: ATTENTION: The Clinical Documentation Specialists (CDI) and [facility] Coding Staff appreciate your assistance in clarifying documentation. Please respond to the clarification below the line at the bottom and electronically sign. The CDI & [facility] Coding staff will review the response and follow-up if needed. Please note: Queries are made part of the Legal Health Record. If you have any questions, please contact the author of this message via ITS. Dr. Alexander Sarkar Conflicting documentation has been found in the medical record: 06/24 Cardiology progress note: Hypertensive urgency 06/24 Attending: hypertensive urgency. Blood pressure variable during the day. 06/25 Cardiology progress note: She was diagnosed with hypertension emergency. Assessment notes hypertension urgency. 06/25 Attending: Hypertension acceleration secondary to pleural effusion. In order to capture the severity of the condition. Please render your opinion on the most appropriate diagnosis you are treating. History/Risk Factors: hypertension, end-stage renal disease on hemodialysis, Atrial Fibrillation, Heart Failure, Diabetes Mellitus Clinical Indicators:80-year-old female present to ED on 06/22 with complaints of weakness and high blood pressure. 227 at 16:38 vital signs: 181/79 79 16 98.7 97 % RA, Recheck at 21:55 vital signs 217/103 81 3/ at 06:50 vital signs: 188/87 75 18 98.0 91 % 2/L NC 3/ at 07:56 vital signs: 162 63 16 98.1 98 % RA 3/ at 07:50 vital signs: 191/81 66 20 98.4 91 % 2/L NC Treatment: Monitor blood pressure q 4 hrs and prn Apresoline 25 mg po bid Apresoline 10 mg IVP q 6 hrs prn Imdur 30 mg po daily In your opinion, what is the most clinically appropriate diagnosis for this patient? Hypertensive Urgency Hypertension accelerated with Hypertensive Urgency Other explanation of clinical findings Unable to determine (no explanation for clinical findings) (Last Revision: July 2017) MTDD
--- NOTE | 2020-06-26 16:00 | PN ---
PROGRESS NOTE An 80-year-old white female seen with end-stage renal disease. She was admitted with fluid overload. She has moderate to small pleural effusion. She was started on antibiotics for possible pneumonia but then await for tomorrow. She is currently on 2 L nasal cannula. No chest pain or shortness of breath. Blood pressure is high this morning. She is on amlodipine, hydralazine. Vital signs are stable. Afebrile. CARDIOVASCULAR: S1, S2. LUNGS: Clear. GI: Soft. EXTREMITIES: 2 to 3+ edema. ABDOMEN: Soft. Temperature 98.4, pulse 60 to 66, respiratory rate 18 to 20, blood pressure 127/63, O2 of 91% on room air. ASSESSMENT: 1. End-stage renal disease. 2. Anemia of chronic disease. 3. Mild fluid overload. 4. Chronic obstructive pulmonary disease. 5. Moderate pleural effusions and chronic obstructive pulmonary disease perfusion secondary to end-stage renal disease. 6. Hypokalemia from diuretics. 7. Hypertension acceleration, which has been ordered with new medications and stabilized on hydralazine, amlodipine per Cardiology. Possibly discharge home today if cleared by all specialties. MMODL / IJN: [id number] /
--- NOTE | 2020-06-26 16:28 | US ---
EXAMINATION TYPE: US chest DATE OF EXAM: 06/26/2020 COMPARISON: CT chest 06/25/2020 CLINICAL HISTORY: pleural effusions. TECHNIQUE: Targeted ultrasound of the posterior lower bilateral hemithoraces EXAM MEASUREMENTS: Right Pleural Effusion pocket size: 4.0 cm Right skin surface to fluid distance: 1.5 cm Left Pleural Effusion pocket size: 9.0 cm Left skin surface to fluid distance: 1.7 cm Lung seen within fluid pocket at a depth of 3.0cm Right side marked for possible thoracentesis outside the dept. Left side marked for possible thoracentesis outside the dept. Pulmonologists are able to review the images in the patient?s EMR. IMPRESSIONS: Bilateral pleural effusions, left greater than right
[2020-06-26 17:03] LABS: Glucose,Whole Blood 175 mg/dL (75-99)
[2020-06-26 20:45] LABS: Glucose,Whole Blood 134 mg/dL (75-99)
[2020-06-27] MEDS: LEVOTHYROXINE 100 MCG TAB PO SCH (05:51)
[2020-06-27 07:27] LABS: Glucose,Whole Blood 118 mg/dL (75-99)
[2020-06-27] MEDS: INSULIN ASPART (NovoLOG) 100 UNIT/ML VIAL SQ SCH ×4 (07:28→21:14)
[2020-06-27] MEDS: amLODIPine 5 MG TAB PO SCH ×2 (08:07→21:14)
[2020-06-27] MEDS: POTASSIUM CHLORIDE ER 20 MEQ TAB.ER PO SCH (08:07)
[2020-06-27] MEDS: PANTOPRAZOLE 40 MG TABLET PO SCH (08:07)
[2020-06-27] MEDS: AMIODARONE 200 MG TAB PO SCH ×2 (08:07→21:14)
[2020-06-27] MEDS: hydrALAZINE HCL 50 MG TAB PO SCH ×3 (08:07→21:13)
[2020-06-27] MEDS: ISOSORBIDE MONONITRATE ER 30 MG TAB.ER.24H PO SCH (08:07)
[2020-06-27] MEDS: FUROSEMIDE 40 MG TAB PO SCH (08:07)
[2020-06-27] MEDS: ATORVASTATIN 40 MG TAB PO SCH (08:07)
[2020-06-27] MEDS: PROPRANOLOL 10 MG TAB PO SCH ×2 (08:08→21:14)
[2020-06-27 09:10] LABS: Basophils # (A) 0.06 X 10*3/uL (0.00-0.10); Basophils % (A) 1.2 %; Eosinophils # (A) 0.27 X 10*3/uL (0.04-0.35); Eosinophils % (A) 5.3 %; HCT 25.4 % (37.2-46.3); HGB 8.3 g/dL (12.0-15.0); Lymphocytes # (A) 1.02 X 10*3/uL (0.90-5.00); Lymphocytes % (A) 19.9 %; MCH 31.1 pg (27.0-32.0); MCHC 32.7 g/dL (32.0-37.0); MCV 95.1 fL (80.0-97.0); Mean Platelet Volume 10.6 fL (9.5-12.2); Monocytes # (A) 0.52 X 10*3/uL (0.20-1.00); Monocytes % (A) 10.2 %; Neutrophils # (A) 3.21 X 10*3/uL (1.80-7.70); Neutrophils % (A) 62.6 %; Platelet Count 325 X 10*3/uL (140-440); RBC 2.67 X 10*6/uL (4.10-5.20); RDW 16.3 % (11.5-14.5); WBC 5.12 X 10*3/uL (4.50-10.00)
--- NOTE | 2020-06-27 09:49 | P.PN ---
Subjective Progress Note Date: 06/27/20 Principal diagnosis: Hypertension emergency This is an 80-year-old female patient with end stage renal disease as well as hypertension as well as paroxysmal atrial fibrillation and aortic stenosis was admitted to the hospital with elevated blood pressure. She was diagnosed with hypertension emergency. The patient was seen today 06/27/2020. She would like to go home. The blood pressure continues to be in the 150-160 mmHg. She is insisting on going home today. She denies any chest pain or chest discomfort. Objective - Vital Signs Vital signs: Vital Signs Temp 97.9 F 06/27/20 07:31 Pulse 54 L 06/27/20 07:31 Resp 20 06/27/20 07:31 BP 166/74 06/27/20 07:31 Pulse Ox 98 06/27/20 07:35 Intake & Output 06/26/20 06/27/20 06/27/20 18:59 06:59 18:59 Intake Total 200 470 200 Output Total 1500 Balance -1300 470 200 Weight 61 kg Intake: Oral 200 470 200 Output: Hemodialysis 1500 Other: Voiding Method Toilet Toilet # Voids 1 1 - Constitutional General appearance: Present: no acute distress - Respiratory Respiratory: bilateral: diminished - Cardiovascular Heart sounds: normal: S1, S2 Abnormal Heart Sounds: Present: systolic murmur - Labs CBC & Chem 7: 06/27/20 05:31 06/24/20 05:09 Labs: Abnormal Lab Results - Last 24 Hours (Table) 06/26/20 06/26/20 06/26/20 Range/Units 11:19 16:56 20:44 RBC (4.10-5.20) X 10*6/uL Hgb (12.0-15.0) g/dL Hct (37.2-46.3) % RDW (11.5-14.5) % POC Glucose (mg/dL) 116 H 175 H 134 H (75-99) mg/dL 06/27/20 06/27/20 Range/Units 05:31 07:04 RBC 2.67 L (4.10-5.20) X 10*6/uL Hgb 8.3 L (12.0-15.0) g/dL Hct 25.4 L (37.2-46.3) % RDW 16.3 H (11.5-14.5) % POC Glucose (mg/dL) 118 H (75-99) mg/dL Assessment and Plan Assessment: Assessment #1 into stage renal disease on hemodialysis #2 hypertension urgency #3 proximal atrial fibrillation #4 aortic stenosis Plan #1 continue the current medical regimen #2 the patient would like to be discharged home
--- NOTE | 2020-06-27 11:47 | P.PN ---
Subjective Progress Note Date: 06/27/20 Principal diagnosis: bilateral small to moderate pleural effusion left lower lobe pneumonia Acute exacerbation of congestive heart failure likely diastolic heart failure Valvular heart disease with moderate to severe aortic stenosis End-stage renal disease on hemodialysis Chronic atrial fibrillation dyslipidemia Hypertensive urgency Hypothyroidism Type 2 diabetes mellitus 06/27/2020, patient seen eval examined during the rounds labs reviewed medications reviewed care plan discussed with patient as well as the staff, bilateral pleural effusion more so on the left side compared to lites side, left-sided pleural effusion noted to be 59 cm however right side is 4 cm, options discussed with the patient she declined Thoracentesis on the left side however agreed for follow-up as outpatient, patient remains afebrile and white cell count is normal, patient will be monitor observed off of antibiotics, patient can be discharged home with follow-up in outpatient basis from pulmonary standpoint this is a pleasant 80-year-old female with prior medical history of multiple complex medical problem including chronic atrial fibrillation COPD and diabetes has been on hemodialysis presented into the emergency department with increasing shortness of breath and weakness, symptoms started for several days, no fever or chills present, patient gets dialysis Wednesday, patient noted to have a hypertensive urgency on arrival with blood pressure 120/90, BUN/c reatinine is 30 and 3.8, mid chest x-ray is suggestive of CHF-like changes a small pleural effusionThomas latest echocardiogram during this hospitalization revealed ejection fraction of 55% with dilated left atria severe pulmonary hypertension along with moderate to severe aortic stenosis, computed tomography scan of the chest performed revealed a small to moderate bilateral pleural effusion, no pericardial effusion noted, some mild tracheal lymphadenopathy noted no hilar masses seen, lower lobe pneumonia cannot be excluded, consider starting antibiotics like Rocephin, patient also has history of snoring in the past Objective - Vital Signs Vital signs: Vital Signs Temp 97.9 F 06/27/20 07:31 Pulse 54 L 06/27/20 07:31 Resp 20 06/27/20 07:31 BP 166/74 06/27/20 07:31 Pulse Ox 98 06/27/20 07:35 Intake & Output 06/26/20 06/27/20 06/27/20 18:59 06:59 18:59 Intake Total 200 470 200 Output Total 1500 Balance -1300 470 200 Weight 61 kg Intake: Oral 200 470 200 Output: Hemodialysis 1500 Other: Voiding Method Toilet Toilet # Voids 1 1 - Exam - Constitutional General appearance: average body habitus, cooperative, disheveled - EENT Eyes: PERRLA ENT: hard of hearing, other Ears: bilateral: normal - Neck Neck: normal ROM Carotids: bilateral: upstroke normal Thyroid: bilateral: normal size - Respiratory Respiratory: bilateral: diminished (at the bases), dullness (at the bases), rales (at the bases) - Cardiovascular Rhythm: irregularly irregular Heart sounds: normal: S1, S2 - Gastrointestinal General gastrointestinal: normal bowel sounds, soft - Integumentary Integumentary: normal turgor - Neurologic Neurologic: CNII-XII intact - Musculoskeletal Musculoskeletal: gait normal, generalized weakness, strength equal bilaterally - Psychiatric Psychiatric: A&O x's 3, appropriate affect, intact judgment & insight - Labs CBC & Chem 7: 06/27/20 05:31 06/24/20 05:09 Labs: Abnormal Lab Results - Last 24 Hours (Table) 06/26/20 06/26/20 06/27/20 Range/Units 16:56 20:44 05:31 RBC 2.67 L (4.10-5.20) X 10*6/uL Hgb 8.3 L (12.0-15.0) g/dL Hct 25.4 L (37.2-46.3) % RDW 16.3 H (11.5-14.5) % POC Glucose (mg/dL) 175 H 134 H (75-99) mg/dL 06/27/20 Range/Units 07:04 RBC (4.10-5.20) X 10*6/uL Hgb (12.0-15.0) g/dL Hct (37.2-46.3) % RDW (11.5-14.5) % POC Glucose (mg/dL) 118 H (75-99) mg/dL Assessment and Plan Assessment: bilateral small to moderate pleural effusion more so on the left side compared to right side left lower lobe pneumonia less likely Acute exacerbation of congestive heart failure likely diastolic heart failure Valvular heart disease with moderate to severe aortic stenosis End-stage renal disease on hemodialysis Chronic atrial fibrillation dyslipidemia Hypertensive urgency Hypothyroidism Type 2 diabetes mellitus Plan: continue hemodialysis as planned With intent to remove more fluid Ultrasound of the chest bilateral reviewed care plan discussed with the patient he she declined the thoracentesis we'll continue monitor her outpatient basis Need to optimize control of blood pressure monitor observe off of antibiotics Further recommendations pending plan of care as per clinical response of the patient Time with Patient: Greater than 30
--- NOTE | 2020-06-27 11:49 | P.PN ---
Subjective Patient is seen in follow-up for end-stage renal disease. She is maintained on hemodialysis on Wednesday schedule. No problems with dialysis yesterday. She is currently on 2 L nasal cannula. No chest pain or shortness of breath. Blood pressure has been quite labile ranging from systolic 113-175 in the last 24 hours. Vital signs are stable. General: The patient appeared well nourished and normally developed. HEENT: Head exam is unremarkable. Neck is without jugular venous distension. LUNGS: Breath sounds decreased. HEART: Rate and Rhythm are regular. ABDOMEN: Soft, nontender. EXTREMITITES: No edema. Objective - Vital Signs Vital signs: Vital Signs Temp 97.9 F 06/27/20 07:31 Pulse 54 L 06/27/20 07:31 Resp 20 06/27/20 07:31 BP 166/74 06/27/20 07:31 Pulse Ox 98 06/27/20 07:35 Intake & Output 06/26/20 06/27/20 06/27/20 18:59 06:59 18:59 Intake Total 200 470 200 Output Total 1500 Balance -1300 470 200 Weight 61 kg Intake: Oral 200 470 200 Output: Hemodialysis 1500 Other: Voiding Method Toilet Toilet # Voids 1 1 - Labs CBC & Chem 7: 06/27/20 05:31 06/24/20 05:09 Labs: Abnormal Lab Results - Last 24 Hours (Table) 06/26/20 06/26/20 06/27/20 Range/Units 16:56 20:44 05:31 RBC 2.67 L (4.10-5.20) X 10*6/uL Hgb 8.3 L (12.0-15.0) g/dL Hct 25.4 L (37.2-46.3) % RDW 16.3 H (11.5-14.5) % POC Glucose (mg/dL) 175 H 134 H (75-99) mg/dL 06/27/20 Range/Units 07:04 RBC (4.10-5.20) X 10*6/uL Hgb (12.0-15.0) g/dL Hct (37.2-46.3) % RDW (11.5-14.5) % POC Glucose (mg/dL) 118 H (75-99) mg/dL Assessment and Plan Plan: Assessment: 1. End-stage renal disease maintained on hemodialysis on Wednesday schedule. 2. Anemia of chronic disease. Iron deficiency present. Status post IV iron. 3. Volume overload. Improving with diuresis and ultrafiltration. She does have a large left-sided pleural effusion but has refused a thoracentesis. 4. COPD. 5. Hypokalemia from diuretics. Status post placement. Improved. 6. Chronic diastolic CHF with moderate pulmonary hypertension. 7. Generalized weakness. 8. Hypertension with chronic kidney disease. Blood pressure labile. Plan: Hemodialysis tomorrow - challenge ultrafiltration is able to tolerate. Maintain oral Lasix. Maintain current antihypertensives. Hold hydralazine for systolic blood pressure less than 125 and to take an extra 25 mg his blood pressure above 150/90.
[2020-06-27 12:03] LABS: Glucose,Whole Blood 166 mg/dL (75-99)
[2020-06-27] MEDS: APIXABAN 2.5 MG TABLET PO SCH ×2 (12:18→21:13)
[2020-06-27 14:13] VITALS: BMI 24.5
[2020-06-27 14:42] LABS: Glucose,Whole Blood 122 mg/dL (75-99)
[2020-06-27 17:08] LABS: Glucose,Whole Blood 166 mg/dL (75-99)
[2020-06-27 20:54] LABS: Glucose,Whole Blood 141 mg/dL (75-99)
[2020-06-27] MEDS: ONDANSETRON 4 MG TAB PO PRN (21:14)
[2020-06-28] MEDS: LEVOTHYROXINE 100 MCG TAB PO SCH (05:56)
[2020-06-28 06:40] LABS: Glucose,Whole Blood 116 mg/dL (75-99)
[2020-06-28] MEDS: INSULIN ASPART (NovoLOG) 100 UNIT/ML VIAL SQ SCH ×4 (07:19→21:43)
[2020-06-28] MEDS: amLODIPine 5 MG TAB PO SCH ×2 (08:19→20:05)
[2020-06-28] MEDS: APIXABAN 2.5 MG TABLET PO SCH ×2 (08:19→20:05)
[2020-06-28] MEDS: PANTOPRAZOLE 40 MG TABLET PO SCH (08:19)
[2020-06-28] MEDS: ATORVASTATIN 40 MG TAB PO SCH (08:19)
[2020-06-28] MEDS: ISOSORBIDE MONONITRATE ER 30 MG TAB.ER.24H PO SCH (08:19)
[2020-06-28] MEDS: FUROSEMIDE 40 MG TAB PO SCH (08:20)
[2020-06-28] MEDS: PROPRANOLOL 10 MG TAB PO SCH ×2 (08:20→20:05)
[2020-06-28] MEDS: POTASSIUM CHLORIDE ER 20 MEQ TAB.ER PO SCH (08:20)
[2020-06-28] MEDS: AMIODARONE 200 MG TAB PO SCH ×2 (08:20→20:05)
[2020-06-28] MEDS: hydrALAZINE HCL 50 MG TAB PO SCH ×3 (08:26→20:04)
--- NOTE | 2020-06-28 10:10 | P.PN ---
Subjective Progress Note Date: 06/28/20 Principal diagnosis: bilateral small to moderate pleural effusion left lower lobe pneumonia Acute exacerbation of congestive heart failure likely diastolic heart failure Valvular heart disease with moderate to severe aortic stenosis End-stage renal disease on hemodialysis Chronic atrial fibrillation dyslipidemia Hypertensive urgency Hypothyroidism Type 2 diabetes mellitus 06/28/2020, patient seen eval examined during the rounds labs reviewed medications reviewed, today patient is running slightly high blood pressure, due for dialysis today, denies any chest pain denies any shortness of breath, hemodynamic status stableblood pressure is now down to 145/69, oxygen saturation 96% on 2 L, options discussed patient is still do not want left thoracentesis however agreed to follow up on outpatient basis, I have discussed differential diagnoses with her 06/27/2020, patient seen eval examined during the rounds labs reviewed medications reviewed care plan discussed with patient as well as the staff, bilateral pleural effusion more so on the left side compared to lites side, left-sided pleural effusion noted to be 59 cm however right side is 4 cm, options discussed with the patient she declined Thoracentesis on the left side however agreed for follow-up as outpatient, patient remains afebrile and white cell count is normal, patient will be monitor observed off of antibiotics, patient can be discharged home with follow-up in outpatient basis from pulmonary standpoint this is a pleasant 80-year-old female with prior medical history of multiple complex medical problem including chronic atrial fibrillation COPD and diabetes has been on hemodialysis presented into the emergency department with increasing shortness of breath and weakness, symptoms started for several days, no fever or chills present, patient gets dialysis Wednesday, patient noted to have a hypertensive urgency on arrival with blood pressure 120/90, BUN/creatinine is 30 and 3.8, mid chest x-ray is suggestive of CHF-like changes a small pleural effusionThomas latest echocardiogram during this hospitalization revealed ejection fraction of 55% with dilated left atria severe pulmonary hypertension along with moderate to severe aortic stenosis, computed tomography scan of the chest performed revealed a small to moderate bilateral pleural effusion, no pericardial effusion noted, some mild tracheal lymphadenopathy noted no hilar masses seen, lower lobe pneumonia cannot be excluded, consider starting antibiotics like Rocephin, patient also has history of snoring in the past Objective - Vital Signs Vital signs: Vital Signs Temp 98.6 F 06/28/20 07:42 Pulse 54 L 06/28/20 07:42 Resp 18 06/28/20 07:42 BP 145/69 06/28/20 07:42 Pulse Ox 96 06/28/20 07:42 Intake & Output 06/27/20 06/28/20 06/28/20 18:59 06:59 18:59 Intake Total 200 200 Balance 200 200 Weight 61 kg 61 kg Intake: Oral 200 200 Other: Voiding Method Toilet Toilet # Voids 3 - Exam - Constitutional General appearance: average body habitus, cooperative, disheveled - EENT Eyes: PERRLA ENT: hard of hearing, other Ears: bilateral: normal - Neck Neck: normal ROM Carotids: bilateral: upstroke normal Thyroid: bilateral: normal size - Respiratory Respiratory: bilateral: diminished (at the bases), dullness (at the bases), rales (at the bases) - Cardiovascular Rhythm: irregularly irregular Heart sounds: normal: S1, S2 - Gastrointestinal General gastrointestinal: normal bowel sounds, soft - Integumentary Integumentary: normal turgor - Neurologic Neurologic: CNII-XII intact - Musculoskeletal Musculoskeletal: gait normal, generalized weakness, strength equal bilaterally - Psychiatric Psychiatric: A&O x's 3, appropriate affect, intact judgment & insight - Labs CBC & Chem 7: 06/27/20 05:31 06/24/20 05:09 Labs: Abnormal Lab Results - Last 24 Hours (Table) 06/27/20 06/27/20 06/27/20 Range/Units 11:41 14:39 17:02 POC Glucose (mg/dL) 166 H 122 H 166 H (75-99) mg/dL 06/27/20 06/28/20 Range/Units 20:43 06:38 POC Glucose (mg/dL) 141 H 116 H (75-99) mg/dL Assessment and Plan Assessment: bilateral small to moderate pleural effusion more so on the left side compared to right side left lower lobe pneumonia less likely Acute exacerbation of congestive heart failure likely diastolic heart failure Valvular heart disease with moderate to severe aortic stenosis End-stage renal disease on hemodialysis Chronic atrial fibrillation dyslipidemia Hypertensive urgency Hypothyroidism Type 2 diabetes mellitus Plan: continue hemodialysis as planned With intent to remove more fluid Ultrasound of the chest bilateral reviewed care plan discussed with the patient he she declined the thoracentesis we'll continue monitor her outpatient basis, I have discussed the differential diagnoses with her most likely effusion. To be related to multifactorial processes including hypertensive heart failure chronic renal failure but other etiologies like neoplasm cannot be excluded Need to optimize control of blood pressure monitor observe off of antibiotics Further recommendations pending plan of care as per clinical response of the patient Time with Patient: Greater than 30
--- NOTE | 2020-06-28 10:42 | CDI ---
Documentation Clarification Form Date: 06/26/2020 03:07:00 PM From: Kristen Khan RN, CCDS Admit Date: 06/26/2020 01:52:00 PM Patient Name: Page Travis Visit Number: [id number] Discharge Date: ATTENTION: The Clinical Documentation Specialists (CDI) and [facility] Coding Staff appreciate your assistance in clarifying documentation. Please respond to the clarification below the line at the bottom and electronically sign. The CDI & [facility] Coding staff will review the response and follow-up if needed. Please note: Queries are made part of the Legal Health Record. If you have any questions, please contact the author of this message via ITS. Dr. Alexander Sarkar Conflicting documentation has been found in the medical record: 06/24 Cardiology progress note: Hypertensive urgency 06/24 Attending: hypertensive urgency. Blood pressure variable during the day. 06/25 Cardiology progress note: She was diagnosed with hypertension emergency. Assessment notes hypertension urgency. 06/25 Attending: Hypertension acceleration secondary to pleural effusion. In order to capture the severity of the condition. Please render your opinion on the most appropriate diagnosis you are treating. History/Risk Factors: hypertension, end-stage renal disease on hemodialysis, Atrial Fibrillation, Heart Failure, Diabetes Mellitus Clinical Indicators: 80-year-old female present to ED on 06/22 with complaints of weakness and high blood pressure. 227 at 16:38 vital signs: 181/79 79 16 98.7 97 % RA, Recheck at 21:55 vital signs 217/103 81 3/ at 06:50 vital signs: 188/87 75 18 98.0 91 % 2/L NC 3/ at 07:56 vital signs: 162 63 16 98.1 98 % RA 3/ at 07:50 vital signs: 191/81 66 20 98.4 91 % 2/L NC Treatment: Monitor blood pressure q 4 hrs. and prn Apresoline 25 mg po bid Apresoline 10 mg IVP q 6 hrs prn Imdur 30 mg po daily In your opinion, what is the most clinically appropriate diagnosis for this patient? Hypertensive Urgency Hypertension accelerated with Hypertensive Urgency Other explanation of clinical findings Unable to determine (no explanation for clinical findings) (Last Revision: July 2017) MTDD
--- NOTE | 2020-06-28 11:07 | P.PN ---
Subjective Patient is seen in follow-up for end-stage renal disease. She is maintained on hemodialysis on Wednesday schedule. Scheduled for dialysis today. She is currently on 2 L nasal cannula. No chest pain or shortness of breath. Blood pressure remains labile. Amlodipine and hydralazine doses with both increased by the primary team yesterday. Vital signs are stable. Blood pressure labile. General: The patient appeared well nourished and normally developed. HEENT: Head exam is unremarkable. Neck is without jugular venous distension. LUNGS: Breath sounds decreased. HEART: Rate and Rhythm are regular. ABDOMEN: Soft, nontender. EXTREMITITES: No edema. Objective - Vital Signs Vital signs: Vital Signs Temp 98.6 F 06/28/20 07:42 Pulse 54 L 06/28/20 07:42 Resp 16 06/28/20 08:35 BP 145/69 06/28/20 07:42 Pulse Ox 96 06/28/20 07:42 Intake & Output 06/27/20 06/28/20 06/28/20 18:59 06:59 18:59 Intake Total 200 200 Balance 200 200 Weight 61 kg 61 kg Intake: Oral 200 200 Other: Voiding Method Toilet Toilet Toilet # Voids 3 - Labs CBC & Chem 7: 06/27/20 05:31 06/24/20 05:09 Labs: Abnormal Lab Results - Last 24 Hours (Table) 06/27/20 06/27/20 06/27/20 Range/Units 11:41 14:39 17:02 POC Glucose (mg/dL) 166 H 122 H 166 H (75-99) mg/dL 06/27/20 06/28/20 Range/Units 20:43 06:38 POC Glucose (mg/dL) 141 H 116 H (75-99) mg/dL Assessment and Plan Plan: Assessment: 1. End-stage renal disease maintained on hemodialysis on Wednesday schedule. 2. Anemia of chronic kidney disease. Iron deficiency present. Status post IV iron. 3. Volume overload. Improving with diuresis and ultrafiltration. She does have a large left-sided pleural effusion but has refused a thoracentesis. 4. COPD. 5. Hypokalemia from diuretics. Status post placement. Improved. 6. Chronic diastolic CHF with moderate pulmonary hypertension. 7. Generalized weakness. 8. Hypertension with chronic kidney disease. Blood pressure labile. Plan: Hemodialysis today - challenge ultrafiltration as able to tolerate. Maintain oral Lasix. Maintain current antihypertensives. Hydralazine and amlodipine dose is increased today. Hold hydralazine for systolic blood pressure less than 125 and to take an extra 25 mg his blood pressure above 150/90. Add Aranesp.
--- NOTE | 2020-06-28 11:15 | P.PN ---
Subjective Progress Note Date: 06/28/20 Principal diagnosis: Hypertension emergency This is an 80-year-old female patient with end stage renal disease as well as hypertension as well as paroxysmal atrial fibrillation and aortic stenosis was admitted to the hospital with elevated blood pressure. She was diagnosed with hypertension emergency. The patient was seen today June 282020. Unfortunately the blood pressure continues to be elevated and the dose of hydralazine as well as Norvasc was increased. The patient is staying overnight for additional 24 hour to monitor the blood pressure and hopefully she can be discharged tomorrow morning. If which she the systolic pressure around 150 mmHg to 160 mmHg the patient possibly can be discharged home. Objective - Vital Signs Vital signs: Vital Signs Temp 98.6 F 06/28/20 07:42 Pulse 54 L 06/28/20 07:42 Resp 16 06/28/20 08:35 BP 145/69 06/28/20 07:42 Pulse Ox 96 06/28/20 07:42 Intake & Output 06/27/20 06/28/20 06/28/20 18:59 06:59 18:59 Intake Total 200 200 Balance 200 200 Weight 61 kg 61 kg Intake: Oral 200 200 Other: Voiding Method Toilet Toilet Toilet # Voids 3 - Constitutional General appearance: Present: no acute distress - Respiratory Respiratory: bilateral: diminished - Cardiovascular Rhythm: regular Heart sounds: normal: S1, S2 Abnormal Heart Sounds: Present: systolic murmur - Labs CBC & Chem 7: 06/27/20 05:31 06/24/20 05:09 Labs: Abnormal Lab Results - Last 24 Hours (Table) 06/27/20 06/27/20 06/27/20 Range/Units 11:41 14:39 17:02 POC Glucose (mg/dL) 166 H 122 H 166 H (75-99) mg/dL 06/27/20 06/28/20 Range/Units 20:43 06:38 POC Glucose (mg/dL) 141 H 116 H (75-99) mg/dL Assessment and Plan Assessment: Assessment #1 into stage renal disease on hemodialysis #2 hypertension urgency #3 proximal atrial fibrillation #4 aortic stenosis Plan #1 continue the current medical regimen #2 continue monitoring the blood pressure #3 the patient possibly can be discharged home in the next 24 hours
[2020-06-28] MEDS ORDERED: DARBEPOETIN ALFA 40 MCG/0.4 ML SYRINGE SQ SCH (11:30)
[2020-06-28] MEDS: hydrALAZINE HCL 25 MG TAB PO PRN (12:37)
[2020-06-28 12:41] LABS: Glucose,Whole Blood 136 mg/dL (75-99)
[2020-06-28 16:33] LABS: Glucose,Whole Blood 138 mg/dL (75-99)
[2020-06-28 20:19] LABS: Glucose,Whole Blood 215 mg/dL (75-99)
[2020-06-29] MEDS: ACETAMINOPHEN TAB 325 MG TAB PO PRN (01:37)
[2020-06-29] MEDS: LEVOTHYROXINE 100 MCG TAB PO SCH (06:15)
[2020-06-29 07:40] LABS: Glucose,Whole Blood 135 mg/dL (75-99)
[2020-06-29] MEDS: hydrALAZINE HCL 50 MG TAB PO SCH ×3 (09:04→22:12)
[2020-06-29] MEDS: INSULIN ASPART (NovoLOG) 100 UNIT/ML VIAL SQ SCH ×4 (09:04→22:12)
[2020-06-29] MEDS: FUROSEMIDE 40 MG TAB PO SCH (09:04)
[2020-06-29] MEDS: ISOSORBIDE MONONITRATE ER 30 MG TAB.ER.24H PO SCH (09:04)
[2020-06-29] MEDS: APIXABAN 2.5 MG TABLET PO SCH ×2 (09:04→20:59)
[2020-06-29] MEDS: amLODIPine 5 MG TAB PO SCH ×2 (09:04→20:59)
[2020-06-29] MEDS: AMIODARONE 200 MG TAB PO SCH ×2 (09:04→20:59)
[2020-06-29] MEDS: ATORVASTATIN 40 MG TAB PO SCH (09:04)
[2020-06-29] MEDS: PANTOPRAZOLE 40 MG TABLET PO SCH (09:04)
[2020-06-29] MEDS: POTASSIUM CHLORIDE ER 20 MEQ TAB.ER PO SCH (09:04)
[2020-06-29] MEDS: PROPRANOLOL 10 MG TAB PO SCH ×2 (09:05→20:58)
[2020-06-29 11:14] LABS: Cholesterol 173 mg/dL (<200); HDL Cholesterol 97 mg/dL (40-60); LDL Cholesterol,Calculated 56 mg/dL (0-99); Triglycerides 102 mg/dL (<150)
[2020-06-29 11:56] LABS: Glucose,Whole Blood 159 mg/dL (75-99)
--- NOTE | 2020-06-29 12:09 | PN ---
PROGRESS NOTE ADDENDUM: Hypertensive urgency. MMODL / IJN: [id number] /
--- NOTE | 2020-06-29 12:16 | PN ---
PROGRESS NOTE DATE OF SERVICE: 06/28/2020 The patient was not sent home yesterday due to hypertension on date 06/28/2020. I increased her hydralazine and put her on Norvasc 5 mg b.i.d. due to hypertension acceleration. Otherwise, she is eating better. She still gets dizzy and orthostatic changes when she moves. Cardiovascular S1-S2. Lungs clear. GI soft. Hematology negative Homans. Psych fair mood and affect. ASSESSMENT: 1. Hypertension acceleration. 2. End-stage renal disease with fluid overload. 3. Chronic obstructive pulmonary disease. 4. Diabetes. 5. Hypertension. Prognosis guarded. Check orthostatic changes. Increase hydralazine to 50 t.i.d. and start Norvasc 5 mg b.i.d. for hypertension acceleration. MMODL / IJN: [id number] /
--- NOTE | 2020-06-29 12:16 | PN ---
PROGRESS NOTE DATE OF SERVICE: 06/29/2020 An 80-year-old white female who was kept overnight. Blood pressure is elevated. Norvasc and hydralazine were increased yesterday. Blood pressure today is 140s over 60s, pulse 54, respiratory 16-18, temperature 98.6, O2 96. Cardiovascular S1, S2. Lungs clear. GI soft. Hematology negative Homans. Psych fair mood and affect. ASSESSMENT: 1. Hypertension acceleration. 2. End-stage renal disease. 3. Hypertension. 4. Fluid overload. Check orthostatic changes. Possibly discharge home tomorrow. MMODL / IJN: [id number] /
[2020-06-29 14:24] LABS: T4, Free (Free Thyroxine) 1.86 ng/dL (0.78-2.19)
[2020-06-29 16:50] LABS: Glucose,Whole Blood 115 mg/dL (75-99)
--- NOTE | 2020-06-29 20:05 | P.PN ---
Subjective History of present illness: A pleasant 80-year-old female patient who follows with Dr. Solares in the office. She has a history of hypertension, diabetes, hyperlipidemia, end-stage renal disease, undergoes hemodialysis, COPD, pulmonary hypertension and aortic stenosis. She presented to the emergency department with symptoms of shortness of breath, orthopnea and her blood pressure was elevated around 200 systolic at home. Chest x-ray on admission showed mild congestive heart failure with pleural effusions, pulmonary congestion and fluid increased compared to last exam. EKG on admission showed sinus rhythm. She is unsure if she has a history of arrhythmia however she is on amiodarone and anticoagulation at home. Patient's blood pressure was initially elevated following admission but this morning is much better controlled at 135/60. She is currently on amiodarone 200 mg by mouth twice a day, Eliquis 2.5 mg by mouth twice a day, Lipitor 40 mg by mouth daily, Lasix 80 mg by mouth daily, hydralazine 25 mg by mouth twice a day, isosorbide 30 mg by mouth daily, Synthroid, Protonix, potassium supplement. She did have echocardiogram with Doppler study performed in April 2019 which revealed a normal LV systolic function moderately S and moderate pulmonary hypertension. She follows regularly in the office with Dr. Coronel and saw him a couple months ago. Labs on admission showed an T proBNP of 6580 which in June 2019 was up to 23,800. Other labs show sodium 136, potassium 4.2 this morning which was 3.3 yesterday, BUN 23 and creatinine 3.1. She is ordered to undergo hemodialysis tomorrow. Upon examination patient is resting comfortably in bed. She does have the head of the bed somewhat elevated but feels her breathing is significantly better. Her blood pressure is under better control. She has had no chest discomfort or palpitations. 06/29/20 Patient denies any chest pain or pressure. BP's systolics in the 130-150's. PHYSICAL EXAMINATION: This is a 80-year-old female in no apparent distress at the time of my examination. VITAL SIGNS: Blood pressure 135/60, heart rate 77, respirations 18, temp 98.7F. Patient is 93 % on 2 L via nasal cannula. HEENT: Head is atraumatic, normocephalic. Pupils are equal, round. Sclerae anicteric. Conjunctivae are clear. Mucous membranes of the mouth are moist. Neck is supple. There is no elevated jugular venous pressure. No carotid bruit is heard. CHEST EXAMINATION: Clear to auscultation bilaterally. No wheezes rales or rhonchi. Respirations even and nonlabored. HEART EXAMINATION: Heart regular, positive S1 and S2 with a grade 3/6 systolic ejection murmur. ABDOMEN: Soft, nontender. Bowel sounds are heard. No organomegaly noted. EXTREMITIES: 2+ peripheral pulses with no evidence of peripheral edema and no calf tenderness noted. NEUROLOGIC EXAMINATION: Patient is awake, alert and oriented x3. Assessment: #1 end-stage renal disease, on hemodialysis, scheduled for tomorrow #2 hypertensive urgency, blood pressure improving #3 paroxysmal atrial fibrillation, currently maintaining sinus mechanism #4 moderate aortic stenosis being followed regularly by Dr. Coronel #5 COPD #6 pulmonary hypertension #7 shortness of breath with orthopnea prior to admission with evidence of mild fluid overload on chest x-ray, breathing has improved Plan: Continue Amlodipine 5mg bid, Lasix 40mg daily, Hydralaizine 100mg TID, Imdur 30mg daily, Propronaolol 30mg bid. HD per nephro. Hopeful DC tomorrow Objective - Vital Signs Vital signs: Vital Signs Temp 98.3 F 06/29/20 14:00 Pulse 56 L 06/29/20 14:00 Resp 20 06/29/20 14:00 BP 158/73 06/29/20 14:00 Pulse Ox 96 06/29/20 14:00 Intake & Output 06/29/20 06/29/20 06/30/20 06:59 18:59 06:59 Intake Total 120 Balance 120 Weight 60.9 kg Intake: Oral 120 Other: Voiding Method Toilet Toilet # Voids 0 4 # Emeses 1 - Labs CBC & Chem 7: 06/27/20 05:31 06/24/20 05:09 Labs: Abnormal Lab Results - Last 24 Hours (Table) 06/27/20 06/28/20 06/29/20 Range/Units 05:31 20:17 06:57 POC Glucose (mg/dL) 215 H 135 H (75-99) mg/dL HDL Cholesterol 97 H (40-60) mg/dL TSH 8.160 H (0.465-4.680) mIU/L 06/29/20 06/29/20 Range/Units 11:30 16:39 POC Glucose (mg/dL) 159 H 115 H (75-99) mg/dL HDL Cholesterol (40-60) mg/dL TSH (0.465-4.680) mIU/L
[2020-06-29 21:15] LABS: Glucose,Whole Blood 149 mg/dL (75-99)
[2020-06-30] MEDS: ACETAMINOPHEN TAB 325 MG TAB PO PRN ×3 (03:11→22:35)
[2020-06-30] MEDS: hydrALAZINE HCL 25 MG TAB PO PRN (03:22)
[2020-06-30] MEDS: LEVOTHYROXINE 100 MCG TAB PO SCH (06:42)
[2020-06-30 07:20] LABS: Glucose,Whole Blood 155 mg/dL (75-99)
[2020-06-30] MEDS: POTASSIUM CHLORIDE ER 20 MEQ TAB.ER PO SCH (08:22)
[2020-06-30] MEDS: INSULIN ASPART (NovoLOG) 100 UNIT/ML VIAL SQ SCH ×4 (08:22→22:09)
[2020-06-30] MEDS: FUROSEMIDE 40 MG TAB PO SCH (08:22)
[2020-06-30] MEDS: ONDANSETRON 4 MG TAB PO PRN (08:22)
[2020-06-30] MEDS: hydrALAZINE HCL 50 MG TAB PO SCH ×3 (08:22→22:32)
[2020-06-30] MEDS: AMIODARONE 200 MG TAB PO SCH ×2 (08:23→22:11)
[2020-06-30] MEDS: PROPRANOLOL 10 MG TAB PO SCH ×2 (08:23→22:11)
[2020-06-30] MEDS: ATORVASTATIN 40 MG TAB PO SCH (08:23)
[2020-06-30] MEDS: amLODIPine 5 MG TAB PO SCH ×2 (08:23→22:11)
[2020-06-30] MEDS: APIXABAN 2.5 MG TABLET PO SCH ×2 (08:23→22:11)
[2020-06-30] MEDS: PANTOPRAZOLE 40 MG TABLET PO SCH (08:23)
[2020-06-30] MEDS: ISOSORBIDE MONONITRATE ER 30 MG TAB.ER.24H PO SCH (08:23)
--- NOTE | 2020-06-30 11:27 | P.PN ---
Subjective Progress Note Date: 06/30/20 Follow-up for ESRD. Feels better today. No nausea vomiting diarrhea. Objective - Vital Signs Vital signs: Vital Signs Temp 97.8 F 06/30/20 07:00 Pulse 54 L 06/30/20 07:23 Resp 18 06/30/20 07:00 BP 161/71 06/30/20 07:23 Pulse Ox 93 L 06/30/20 07:00 Intake & Output 06/29/20 06/30/20 06/30/20 18:59 06:59 18:59 Intake Total 120 200 Balance 120 200 Weight 59.5 kg Intake: Oral 120 200 Other: Voiding Method Toilet Toilet Toilet # Voids 4 # Emeses 1 1 - Exam No acute distress S1-S2 heard Lungs clear Right jugular permacath No edema - Labs CBC & Chem 7: 06/27/20 05:31 06/24/20 05:09 Labs: Abnormal Lab Results - Last 24 Hours (Table) 06/27/20 06/29/20 06/29/20 Range/Units 05:31 11:30 16:39 POC Glucose (mg/dL) 159 H 115 H (75-99) mg/dL HDL Cholesterol 97 H (40-60) mg/dL TSH 8.160 H (0.465-4.680) mIU/L 06/29/20 06/30/20 Range/Units 21:07 07:19 POC Glucose (mg/dL) 149 H 155 H (75-99) mg/dL HDL Cholesterol (40-60) mg/dL TSH (0.465-4.680) mIU/L Assessment and Plan Assessment: #1 ESRD MWF schedule #2 anemia with chronic kidney disease #3 volume overload improved with ultrafiltration #4 left pleural effusion, diffuse thoracentesis #5 COPD #6 hypertension with chronic kidney disease Plan: #1 hemodialysis MWF schedule. 2 ESRD medications
[2020-06-30 11:45] LABS: Basophils # (A) 0.05 X 10*3/uL (0.00-0.10); Basophils % (A) 0.8 %; Eosinophils # (A) 0.21 X 10*3/uL (0.04-0.35); Eosinophils % (A) 3.2 %; HCT 30.3 % (37.2-46.3); HGB 9.5 g/dL (12.0-15.0); Lymphocytes # (A) 0.86 X 10*3/uL (0.90-5.00); Lymphocytes % (A) 13.3 %; MCH 30.8 pg (27.0-32.0); MCHC 31.4 g/dL (32.0-37.0); MCV 98.4 fL (80.0-97.0); Mean Platelet Volume 10.6 fL (9.5-12.2); Monocytes # (A) 0.56 X 10*3/uL (0.20-1.00); Monocytes % (A) 8.6 %; Neutrophils # (A) 4.78 X 10*3/uL (1.80-7.70); Neutrophils % (A) 73.6 %; Platelet Count 363 X 10*3/uL (140-440); RBC 3.08 X 10*6/uL (4.10-5.20); RDW 16.5 % (11.5-14.5); WBC 6.49 X 10*3/uL (4.50-10.00)
[2020-06-30] MEDS ORDERED: CIPROFLOXACIN HCL 500 MG TAB PO SCH (12:00)
--- NOTE | 2020-06-30 12:10 | PN ---
PROGRESS NOTE 80-year-old white female. She is severely upset today over mistreatment by the nurse's aide and poor response from the nurses coming to her aide. She is very upset about this. Her blood pressure is still high in the 160s to 170s. We are going to increase her Imdur today and then start her on low-dose Cozaar. Await for Nephrology and Cardiology to contribute to her why her blood pressure is still very high. She is supposed to get dialysis tomorrow. I am starting her on Cipro, Cipro otic for her right eye orbital infection. Consult Dr. Reynoso. She is sitting up in bed, very hostile, upset, nervous, anxious. CARDIOVASCULAR: S1, S2. Vital signs reviewed. Lungs clear. GI soft. Apparently she had some emesis this morning, but she says her belly is fine. HEMATOLOGY: 2+ edema. ASSESSMENT: 1. End-stage renal disease. 2. Hypertensive encephalopathy. 3. Hypertensive urgency. 4. End-stage renal disease. 5. Fluid overload. 6. Anxiety. PLAN: As mentioned above. She has periorbital infection. Consult Dr. Reynoso. Start Cipro drops, Cipro pills. She is highly ALLERGIC TO ALL THE OTHER ANTIBIOTICS. We will up her Imdur, start on low-dose Cozaar. Hopefully her blood pressure will come down. Possibly she can go home after dialysis tomorrow. MMODL / ENEN: [id number] /
[2020-06-30 12:11] LABS: Glucose,Whole Blood 129 mg/dL (75-99)
[2020-06-30 12:14] LABS: African American GFR (CKD) 15.7 (60.0-200.0); Albumin 3.7 g/dL (3.80-4.90); Albumin/Globulin Ratio 1.61 (1.60-3.17); Anion Gap 8.4 mmol/L (4.00-12.00); BUN/Creat Ratio 9.68 Ratio (12.00-20.00); Calcium 8.8 mg/dL (8.7-10.3); Carbon Dioxide 27.6 mmol/L (21.6-31.8); Globulin 2.3 g/dL (1.6-3.3); Non-African American GFR(CKD) 13.5 (60.0-200.0); Total Bilirubin 0.4 mg/dL (0.2-1.2)
[2020-06-30] MEDS: LOSARTAN 25 MG TAB PO SCH (12:18)
[2020-06-30] MEDS: CIPROFLOXACIN 0.3% OPHTH SOLN 5 ML BTL RIGHT EYE SCH ×3 (12:19→22:09)
[2020-06-30] MEDS: ISOSORBIDE MONONITRATE ER 60 MG TAB.ER.24H PO SCH (12:20)
[2020-06-30 17:13] LABS: Glucose,Whole Blood 164 mg/dL (75-99)
--- NOTE | 2020-06-30 19:32 | P.PN ---
Subjective History of present illness: A pleasant 80-year-old female patient who follows with Dr. Solares in the office. She has a history of hypertension, diabetes, hyperlipidemia, end-stage renal disease, undergoes hemodialysis, COPD, pulmonary hypertension and aortic stenosis. She presented to the emergency department with symptoms of shortness of breath, orthopnea and her blood pressure was elevated around 200 systolic at home. Chest x-ray on admission showed mild congestive heart failure with pleural effusions, pulmonary congestion and fluid increased compared to last exam. EKG on admission showed sinus rhythm. She is unsure if she has a history of arrhythmia however she is on amiodarone and anticoagulation at home. Patient's blood pressure was initially elevated following admission but this morning is much better controlled at 135/60. She is currently on amiodarone 200 mg by mouth twice a day, Eliquis 2.5 mg by mouth twice a day, Lipitor 40 mg by mouth daily, Lasix 80 mg by mouth daily, hydralazine 25 mg by mouth twice a day, isosorbide 30 mg by mouth daily, Synthroid, Protonix, potassium supplement. She did have echocardiogram with Doppler study performed in April 2019 which revealed a normal LV systolic function moderately S and moderate pulmonary hypertension. She follows regularly in the office with Dr. Coronel and saw him a couple months ago. Labs on admission showed an T proBNP of 6580 which in June 2019 was up to 23,800. Other labs show sodium 136, potassium 4.2 this morning which was 3.3 yesterday, BUN 23 and creatinine 3.1. She is ordered to undergo hemodialysis tomorrow. Upon examination patient is resting comfortably in bed. She does have the head of the bed somewhat elevated but feels her breathing is significantly better. Her blood pressure is under better control. She has had no chest discomfort or palpitations. 06/30/20 Patient denies any chest pain or pressure. Patient with multiple complaints about the nursing not making her bed the right way. Scheduled for HD tomorrow. Hopes she can go home tomorrow. BP's somewhat elevated with systolics in the 160-170's. PHYSICAL EXAMINATION: This is a 80-year-old female in no apparent distress at the time of my examination. HEENT: Head is atraumatic, normocephalic. Pupils are equal, round. Sclerae anicteric. Conjunctivae are clear. Mucous membranes of the mouth are moist. Neck is supple. There is no elevated jugular venous pressure. No carotid bruit is heard. CHEST EXAMINATION: Clear to auscultation bilaterally. No wheezes rales or rhonchi. Respirations even and nonlabored. HEART EXAMINATION: Heart regular, positive S1 and S2 with a grade 3/6 systolic ejection murmur. ABDOMEN: Soft, nontender. Bowel sounds are heard. No organomegaly noted. EXTREMITIES: 2+ peripheral pulses with no evidence of peripheral edema and no calf tenderness noted. NEUROLOGIC EXAMINATION: Patient is awake, alert and oriented x3. Assessment: #1 end-stage renal disease, on hemodialysis, scheduled for tomorrow #2 hypertensive urgency, blood pressure improving #3 paroxysmal atrial fibrillation, currently maintaining sinus mechanism #4 moderate aortic stenosis being followed regularly by Dr. Coronel #5 COPD #6 pulmonary hypertension #7 shortness of breath with orthopnea prior to admission with evidence of mild fluid overload on chest x-ray, breathing has improved Plan: Continue Amlodipine 5mg bid, Lasix 40mg daily, Hydralaizine 100mg TID, Imdur 60mg daily, Propronaolol 30mg bid. Losartan 12.5mg daily added. HD per nephro. Hopeful DC tomorrow. Objective - Vital Signs Vital signs: Vital Signs Temp 97.8 F 06/30/20 16:22 Pulse 51 L 06/30/20 16:22 Resp 18 06/30/20 16:22 BP 177/87 06/30/20 16:22 Pulse Ox 96 06/30/20 16:22 Intake & Output 06/30/20 06/30/20 07/01/20 06:59 18:59 06:59 Intake Total 200 500 Balance 200 500 Weight 59.5 kg Intake: Oral 200 500 Other: Voiding Method Toilet Toilet # Voids 0 # Emeses 1 - Labs CBC & Chem 7: 06/30/20 06:44 06/30/20 06:44 Labs: Abnormal Lab Results - Last 24 Hours (Table) 06/29/20 06/30/20 06/30/20 Range/Units 21:07 06:44 06:44 RBC 3.08 L (4.10-5.20) X 10*6/uL Hgb 9.5 L (12.0-15.0) g/dL Hct 30.3 L (37.2-46.3) % MCV 98.4 H (80.0-97.0) fL MCHC 31.4 L (32.0-37.0) g/dL RDW 16.5 H (11.5-14.5) % Lymphocytes # 0.86 L (0.90-5.00) X 10*3/uL Sodium 133 L (135-145) mmol/L BUN 30.0 H (9.0-27.0) mg/dL Creatinine 3.1 H (0.6-1.5) mg/dL Est GFR (CKD-EPI)AfAm 15.7 L (60.0-200.0) Est GFR (CKD-EPI)NonAf 13.5 L (60.0-200.0) BUN/Creatinine Ratio 9.68 L (12.00-20.00) Ratio Glucose 137 H (70-110) mg/dL POC Glucose (mg/dL) 149 H (75-99) mg/dL AST 77 H (13-35) U/L ALT 88 H (8-44) U/L Total Protein 6.0 L (6.2-8.2) g/dL Albumin 3.70 L (3.80-4.90) g/dL 06/30/20 06/30/20 06/30/20 Range/Units 07:19 12:09 17:11 RBC (4.10-5.20) X 10*6/uL Hgb (12.0-15.0) g/dL Hct (37.2-46.3) % MCV (80.0-97.0) fL MCHC (32.0-37.0) g/dL RDW (11.5-14.5) % Lymphocytes # (0.90-5.00) X 10*3/uL Sodium (135-145) mmol/L BUN (9.0-27.0) mg/dL Creatinine (0.6-1.5) mg/dL Est GFR (CKD-EPI)AfAm (60.0-200.0) Est GFR (CKD-EPI)NonAf (60.0-200.0) BUN/Creatinine Ratio (12.00-20.00) Ratio Glucose (70-110) mg/dL POC Glucose (mg/dL) 155 H 129 H 164 H (75-99) mg/dL AST (13-35) U/L ALT (8-44) U/L Total Protein (6.2-8.2) g/dL Albumin (3.80-4.90) g/dL
[2020-06-30 20:45] LABS: Glucose,Whole Blood 149 mg/dL (75-99)
[2020-06-30] MEDS ORDERED: VANCOMYCIN IV PER PHARMACY 1 EACH MISC MISCELLANE PRN (21:47)
[2020-06-30] MEDS ORDERED: VANCOMYCIN 1,000 MG in SODIUM CHLORIDE 0.9% 250 ML IVPB ONE (23:00)
[2020-07-01] MEDS: CIPROFLOXACIN 0.3% OPHTH SOLN 5 ML BTL RIGHT EYE SCH ×4 (04:28→16:21)
--- NOTE | 2020-07-01 06:30 | CONS ---
CONSULTATION DATE OF SERVICE: 06/30/2020 REASON FOR FOLLOWUP: Right periorbital cellulitis. HISTORY OF PRESENT ILLNESS: The patient is an 80-year-old female, past medical history significant for end-stage renal disease, on hemodialysis Wednesday, Wednesday, Wednesday. The patient presented to the hospital more than a week ago, on the 22 of June for evaluation of feeling weak and shortness of breath. The patient denies having any fever. No chest pain. No significant cough or sputum production. No abdominal pain. No diarrhea. The patient appears to have some periorbital swelling and redness over the last day or two which prompted this infectious disease consultation. The patient did not have any fever during this hospital stay. She did have a CT of the chest with evidence of bilateral pleural effusion and some compressive atelectasis. She was offered thoracentesis but the patient refused. The patient denies any pain on movement of the eyeball. She did have some diffuse swelling and redness around the right periorbital area. The patient denies any history of any trauma. Did have mild dull aching pain 3 to 4/10 and no radiation. REVIEW OF SYSTEMS: Positive points have been mentioned in HPI. Rest of systems are negative. PAST MEDICAL HISTORY: End-stage renal disease on hemodialysis, atrial fibrillation, heart failure, COPD, diabetes mellitus, DVT, hyperlipidemia, hypertension, osteoarthritis, pneumonia. PAST SURGICAL HISTORY: Cholecystectomy, hysterectomy, tonsillectomy, tubal ligation. SOCIAL HISTORY: No history of smoking, drinking or drug use. FAMILY HISTORY: History of diabetes and renal insufficiency. ALLERGIES TO: PENICILLIN, CODEINE, ERYTHROMYCIN, IV CONTRAST DYE, LATEX. MEDICATIONS: The patient is currently on Tylenol, Norvasc, Eliquis, Lipitor, ciprofloxacin, Aricept, Lasix, hydralazine, NovoLog, Imdur, Synthroid, Cozaar. PHYSICAL EXAMINATION: VITAL SIGNS: Blood pressure 133/84, pulse of 50, temp 98. She is 98% on 2 L nasal cannula. GENERAL DESCRIPTION: An elderly female up in the bed in no distress. HEENT: Shows right periorbital swelling, minimal redness. No fluctuation, induration or drainage. NECK: Trachea central. No thyromegaly. LUNGS: Unlabored breathing, decreased breath sounds at the bases. HEART: S1, S2. Regular rate and rhythm. ABDOMEN: Soft, no tenderness. No guarding or rigidity. EXTREMITIES: No edema of the feet. SKIN: No rash or masses palpable. NEUROLOGICAL: The patient is awake, alert, oriented times three. Mood and affect normal. LABS: Hemoglobin 9.5, white count 6.49, BUN of 30, creatinine 3.1. DIAGNOSTIC IMPRESSION: 1. Patient with right periorbital swelling and redness in this patient who did have a lower eyelid stye with concern for possible streptococcal cellulitis with no evidence of any obvious cellulitis. No fever or elevated white count. 2. Patient has multiple antibiotic allergies that will limit the number of antibiotics safe to use. PLAN: 1. Discontinue oral Cipro. 2. The patient is started on vancomycin, Pharmacy to dose. 3. We will follow on her clinical condition and adjust antibiotics further if needed. Thank you for this consultation. Will follow this patient along with you. MMODL / IJN: [id number] / MTDD
[2020-07-01] MEDS: LEVOTHYROXINE 100 MCG TAB PO SCH (06:47)
[2020-07-01 07:08] LABS: Glucose,Whole Blood 162 mg/dL (75-99)
[2020-07-01] MEDS: INSULIN ASPART (NovoLOG) 100 UNIT/ML VIAL SQ SCH ×2 (09:26→12:22)
[2020-07-01] MEDS: amLODIPine 5 MG TAB PO SCH (10:23)
[2020-07-01] MEDS: AMIODARONE 200 MG TAB PO SCH (10:23)
[2020-07-01] MEDS: ISOSORBIDE MONONITRATE ER 60 MG TAB.ER.24H PO SCH (10:24)
[2020-07-01] MEDS: FUROSEMIDE 40 MG TAB PO SCH (10:24)
[2020-07-01] MEDS: LOSARTAN 25 MG TAB PO SCH (10:24)
[2020-07-01] MEDS: PROPRANOLOL 10 MG TAB PO SCH (10:24)
[2020-07-01] MEDS: hydrALAZINE HCL 50 MG TAB PO SCH ×2 (10:24→16:23)
--- NOTE | 2020-07-01 10:45 | P.PN ---
Subjective Progress Note Date: 07/01/20 Principal diagnosis: bilateral small to moderate pleural effusion left lower lobe pneumonia Acute exacerbation of congestive heart failure likely diastolic heart failure Valvular heart disease with moderate to severe aortic stenosis End-stage renal disease on hemodialysis Chronic atrial fibrillation dyslipidemia Hypertensive urgency Hypothyroidism Type 2 diabetes mellitus 07/01/2020, patient seen eval reexamined denies any chest pain or shortness of breath, slightly frustrated due to persistent elevated blood pressure, this morning slightly better patient currently undergoing hemodialysis, options discussed she continued to refuse thoracentesis on the left side will follow it as an outpatient basis 06/28/2020, patient seen evrich examined during the rounds labs reviewed medications reviewed, today patient is running slightly high blood pressure, due for dialysis today, denies any chest pain denies any shortness of breath, hemodynamic status stableblood pressure is now down to 145/69, oxygen saturation 96% on 2 L, options discussed patient is still do not want left thoracentesis however agreed to follow up on outpatient basis, I have discussed differential diagnoses with her 06/27/2020, patient seen eval examined during the rounds labs reviewed medica tions reviewed care plan discussed with patient as well as the staff, bilateral pleural effusion more so on the left side compared to lites side, left-sided pleural effusion noted to be 59 cm however right side is 4 cm, options discussed with the patient she declined Thoracentesis on the left side however agreed for follow-up as outpatient, patient remains afebrile and white cell count is normal, patient will be monitor observed off of antibiotics, patient can be discharged home with follow-up in outpatient basis from pulmonary standpoint this is a pleasant 80-year-old female with prior medical history of multiple complex medical problem including chronic atrial fibrillation COPD and diabetes has been on hemodialysis presented into the emergency department with increasing shortness of breath and weakness, symptoms started for several days, no fever or chills present, patient gets dialysis Wednesday, patient noted to have a hypertensive urgency on arrival with blood pressure 120/90, BUN/creatinine is 30 and 3.8, mid chest x-ray is suggestive of CHF-like changes a small pleural effusionThomas latest echocardiogram during this hospitalization revealed ejection fraction of 55% with dilated left atria severe pulmonary hypertension along with moderate to severe aortic stenosis, computed tomography scan of the chest performed revealed a small to moderate bilateral pleural effusion, no pericardial effusion noted, some mild tracheal lymphadenopathy noted no hilar masses seen, lower lobe pneumonia cannot be excluded, consider starting antibiotics like Rocephin, patient also has history of snoring in the past Objective - Vital Signs Vital signs: Vital Signs Temp 97.6 F 07/01/20 06:50 Pulse 52 L 07/01/20 06:50 Resp 17 07/01/20 06:50 BP 179/82 07/01/20 06:50 Pulse Ox 96 07/01/20 06:50 Intake & Output 06/30/20 07/01/20 07/01/20 18:59 06:59 18:59 Intake Total 500 Balance 500 Weight 60.5 kg Intake: Oral 500 Other: Voiding Method Toilet Toilet Toilet # Voids 0 1 # Emeses 1 - Exam - Constitutional General appearance: average body habitus, cooperative, disheveled - EENT Eyes: PERRLA ENT: hard of hearing, other Ears: bilateral: normal - Neck Neck: normal ROM Carotids: bilateral: upstroke normal Thyroid: bilateral: normal size - Respiratory Respiratory: bilateral: diminished (at the bases), dullness (at the bases), rales (at the bases) - Cardiovascular Rhythm: irregularly irregular Heart sounds: normal: S1, S2 - Gastrointestinal General gastrointestinal: normal bowel sounds, soft - Integumentary Integumentary: normal turgor - Neurologic Neurologic: CNII-XII intact - Musculoskeletal Musculoskeletal: gait normal, generalized weakness, strength equal bilaterally - Psychiatric Psychiatric: A&O x's 3, appropriate affect, intact judgment & insight - Labs CBC & Chem 7: 06/30/20 06:44 06/30/20 06:44 Labs: Abnormal Lab Results - Last 24 Hours (Table) 06/30/20 06/30/20 06/30/20 Range/Units 06:44 06:44 12:09 RBC 3.08 L (4.10-5.20) X 10*6/uL Hgb 9.5 L (12.0-15.0) g/dL Hct 30.3 L (37.2-46.3) % MCV 98.4 H (80.0-97.0) fL MCHC 31.4 L (32.0-37.0) g/dL RDW 16.5 H (11.5-14.5) % Lymphocytes # 0.86 L (0.90-5.00) X 10*3/uL Sodium 133 L (135-145) mmol/L BUN 30.0 H (9.0-27.0) mg/dL Creatinine 3.1 H (0.6-1.5) mg/dL Est GFR (CKD-EPI)AfAm 15.7 L (60.0-200.0) Est GFR (CKD-EPI)NonAf 13.5 L (60.0-200.0) BUN/Creatinine Ratio 9.68 L (12.00-20.00) Ratio Glucose 137 H (70-110) mg/dL POC Glucose (mg/dL) 129 H (75-99) mg/dL AST 77 H (13-35) U/L ALT 88 H (8-44) U/L Total Protein 6.0 L (6.2-8.2) g/dL Albumin 3.70 L (3.80-4.90) g/dL 06/30/20 06/30/20 07/01/20 Range/Units 17:11 20:44 07:02 RBC (4.10-5.20) X 10*6/uL Hgb (12.0-15.0) g/dL Hct (37.2-46.3) % MCV (80.0-97.0) fL MCHC (32.0-37.0) g/dL RDW (11.5-14.5) % Lymphocytes # (0.90-5.00) X 10*3/uL Sodium (135-145) mmol/L BUN (9.0-27.0) mg/dL Creatinine (0.6-1.5) mg/dL Est GFR (CKD-EPI)AfAm (60.0-200.0) Est GFR (CKD-EPI)NonAf (60.0-200.0) BUN/Creatinine Ratio (12.00-20.00) Ratio Glucose (70-110) mg/dL POC Glucose (mg/dL) 164 H 149 H 162 H (75-99) mg/dL AST (13-35) U/L ALT (8-44) U/L Total Protein (6.2-8.2) g/dL Albumin (3.80-4.90) g/dL Assessment and Plan Assessment: Uncontrolled hypertension with hypertensive urgency bilateral small to moderate pleural effusion more so on the left side compared to right side left lower lobe pneumonia less likely Acute exacerbation of congestive heart failure likely diastolic heart failure Valvular heart disease with moderate to severe aortic stenosis End-stage renal disease on hemodialysis Chronic atrial fibrillation dyslipidemia Hypertensive urgency Hypothyroidism Type 2 diabetes mellitus Plan: Adjust I antihypertensive agent as planned continue hemodialysis as planned With intent to remove more fluid Ultrasound of the chest bilateral reviewed care plan discussed with the patient he she declined the thoracentesis we'll continue monitor her outpatient basis, I have discussed the differential diagnoses with her most likely effusion. To be related to multifactorial processes including hypertensive heart failure chronic renal failure but other etiologies like neoplasm cannot be excluded Need to optimize control of blood pressure monitor observe off of antibiotics Further recommendations pending plan of care as per clinical response of the patient Time with Patient: Greater than 30
[2020-07-01 11:21] LABS: Glucose,Whole Blood 145 mg/dL (75-99)
[2020-07-01] MEDS: ACETAMINOPHEN TAB 325 MG TAB PO PRN (11:58)
[2020-07-01] MEDS: ATORVASTATIN 40 MG TAB PO SCH (11:59)
[2020-07-01] MEDS: PANTOPRAZOLE 40 MG TABLET PO SCH (11:59)
[2020-07-01] MEDS: APIXABAN 2.5 MG TABLET PO SCH (11:59)
[2020-07-01] MEDS: POTASSIUM CHLORIDE ER 20 MEQ TAB.ER PO SCH (12:00)
[2020-07-01] MEDS ORDERED: VANCOMYCIN 1,000 MG in SODIUM CHLORIDE 0.9% 250 ML IVPB ONE ×2 (12:00→14:00)
[2020-07-01 12:05] VITALS: RESP 16
--- NOTE | 2020-07-01 12:18 | P.PN ---
Subjective Progress Note Date: 07/01/20 HISTORY OF PRESENT ILLNESS This is an 80-year-old female patient with past medical history significant for end-stage renal disease on hemodialysis Wednesday. Patient noted to have right periorbital swelling and redness which is improved from yesterday. She has multiple antibiotic ALLERGIES which limit her options for therapy. PHYSICAL EXAMINATION Gen: This is an 80-year-old female. Patient is resting in bed appears to be comfortable. Patient is receiving hemodialysis. HEENT: Head is atraumatic, normocephalic. Pupils equal, round. Sclerae is anicteric. Mild right periorbital swelling and redness. No fluctuation, induration or drainage. NECK: Supple. LUNGS: Decreased breath sounds at the bases. No wheezes or rhonchi. No intercostal retractions. HEART: Regular rate and rhythm. ABDOMEN: Soft. No masses. No tenderness. EXTREMITIES: No pedal edema. No calf tenderness. NEUROLOGICAL: Patient is awake, alert and oriented x3. ASSESSMENT Periorbital cellulitis possible streptococcal Multiple antibiotic ALLERGIES limiting options for treatment PLAN Give 1 dose of vancomycin after dialysis today, pharmacy to dose Plan for doxycycline 100 mg twice daily for 7 day course, prescription has been sent to pharmacy Patient is cleared for discharge from infectious disease. The above dictated assessment and findings were discussed with Dr. Reynoso. The impression and plan of care have been directed as dictated. Alpa Maier nurse practitioner acting as scribe for Dr. Reynoso. Objective - Vital Signs Vital signs: Vital Signs Temp 97.6 F 07/01/20 06:50 Pulse 52 L 07/01/20 06:50 Resp 17 07/01/20 06:50 BP 179/82 07/01/20 06:50 Pulse Ox 96 07/01/20 06:50 Intake & Output 06/30/20 07/01/20 07/01/20 18:59 06:59 18:59 Intake Total 500 Balance 500 Weight 60.5 kg Intake: Oral 500 Other: Voiding Method Toilet Toilet Toilet # Voids 0 1 # Emeses 1 - Labs CBC & Chem 7: 06/30/20 06:44 06/30/20 06:44 Labs: Abnormal Lab Results - Last 24 Hours (Table) 06/30/20 06/30/20 06/30/20 Range/Units 06:44 06:44 12:09 RBC 3.08 L (4.10-5.20) X 10*6/uL Hgb 9.5 L (12.0-15.0) g/dL Hct 30.3 L (37.2-46.3) % MCV 98.4 H (80.0-97.0) fL MCHC 31.4 L (32.0-37.0) g/dL RDW 16.5 H (11.5-14.5) % Lymphocytes # 0.86 L (0.90-5.00) X 10*3/uL Sodium 133 L (135-145) mmol/L BUN 30.0 H (9.0-27.0) mg/dL Creatinine 3.1 H (0.6-1.5) mg/dL Est GFR (CKD-EPI)AfAm 15.7 L (60.0-200.0) Est GFR (CKD-EPI)NonAf 13.5 L (60.0-200.0) BUN/Creatinine Ratio 9.68 L (12.00-20.00) Ratio Glucose 137 H (70-110) mg/dL POC Glucose (mg/dL) 129 H (75-99) mg/dL AST 77 H (13-35) U/L ALT 88 H (8-44) U/L Total Protein 6.0 L (6.2-8.2) g/dL Albumin 3.70 L (3.80-4.90) g/dL 06/30/20 06/30/20 07/01/20 Range/Units 17:11 20:44 07:02 RBC (4.10-5.20) X 10*6/uL Hgb (12.0-15.0) g/dL Hct (37.2-46.3) % MCV (80.0-97.0) fL MCHC (32.0-37.0) g/dL RDW (11.5-14.5) % Lymphocytes # (0.90-5.00) X 10*3/uL Sodium (135-145) mmol/L BUN (9.0-27.0) mg/dL Creatinine (0.6-1.5) mg/dL Est GFR (CKD-EPI)AfAm (60.0-200.0) Est GFR (CKD-EPI)NonAf (60.0-200.0) BUN/Creatinine Ratio (12.00-20.00) Ratio Glucose (70-110) mg/dL POC Glucose (mg/dL) 164 H 149 H 162 H (75-99) mg/dL AST (13-35) U/L ALT (8-44) U/L Total Protein (6.2-8.2) g/dL Albumin (3.80-4.90) g/dL
[2020-07-01 14:16] VITALS: BP 131/56; PULSE 60; TEMP 98.4
--- NOTE | 2020-07-01 14:19 | P.PN ---
Subjective This is a pleasant 80-year-old female past medical history significant for hypertension, diabetes mellitus, dyslipidemia, end-stage renal disease on hemodialysis, COPD, aortic stenosis and pulmonary hypertension. She follows in the office with Dr. Coronel. She is seen and examined sitting up in bed in no acute distress. She denies symptoms of chest pain, shortness of breath, dizziness or palpitations. She underwent hemodialysis this morning and is likely being discharged this afternoon. Blood pressure remains elevated but much improved at 157/64 with a heart rate of 61 afebrile maintaining oxygen saturation on room air. She is currently frustrated regarding her blood pressure medications. Currently maintained on amiodarone 200 mg twice a day, amlodipine 5 mg twice a day, Eliquis 2.5 mg twice a day, atorvastatin 40 mg daily, Lasix 40 mg daily, hydralazine 100 mg 3 times a day, Imdur 60 mg daily, propanolol 30 mg twice a day and losartan 12.5 mg daily. GENERAL: Well-appearing, well-nourished and in no acute distress. NECK: Supple without JVD or thyromegaly. LUNGS: Breath sounds clear to auscultation bilaterally. Respiration equal and unlabored. No wheezes, rales or rhonchi. HEART: Regular rate and rhythm with systolic ejection murmur at the base, no rubs or gallops. S1 and S2 heard. EXTREMITIES: Normal range of motion, no edema. No clubbing or cyanosis. Peripheral pulses intact. ASSESSMENT End-stage renal disease on hemodialysis Hypertensive urgency, improving Paroxysmal atrial fibrillation currently maintaining sinus mechanism Aortic stenosis, moderate COPD Pulmonary hypertension PLAN Decrease amiodarone to 200 mg daily. Clinically stable on current medical regimen from a cardiac perspective. Follow-up upon discharge with Dr. Coronel. Nurse Practitioner note has been reviewed, I agree with a documented findings and plan of care. Patient was seen and examined. Objective - Vital Signs Vital signs: Vital Signs Temp 97.6 F 07/01/20 06:50 Pulse 61 07/01/20 12:04 Resp 16 07/01/20 12:04 BP 157/64 07/01/20 12:04 Pulse Ox 96 07/01/20 06:50 Intake & Output 06/30/20 07/01/20 07/01/20 18:59 06:59 18:59 Intake Total 500 Output Total 2300 Balance 500 -2300 Weight 60.5 kg Intake: Oral 500 Output: Hemodialysis 2300 Other: Voiding Method Toilet Toilet Toilet # Voids 0 1 # Emeses 1 - Labs CBC & Chem 7: 06/30/20 06:44 06/30/20 06:44 Labs: Abnormal Lab Results - Last 24 Hours (Table) 06/30/20 06/30/20 07/01/20 Range/Units 17:11 20:44 07:02 POC Glucose (mg/dL) 164 H 149 H 162 H (75-99) mg/dL 07/01/20 Range/Units 11:17 POC Glucose (mg/dL) 145 H (75-99) mg/dL
[2020-07-01 16:59] LABS: Glucose,Whole Blood 202 mg/dL (75-99)
--- NOTE | 2020-07-01 18:16 | PN ---
PROGRESS NOTE Patient is seen for followup for end-stage renal disease. She is currently seen on hemodialysis, tolerating her treatment well. Patient denies any significant complaints. PHYSICAL EXAMINATION: Blood pressure is blood pressure was 157/64, heart rate 61 per minute, patient is afebrile. Examination shows patient is euvolemic. No evidence of edema noted in her lower extremities. Abdomen is soft, nontender. LAB: Show hemoglobin 9.5, sodium 133, potassium 5.0, serum creatinine 3.1 on 06/30/2020. ASSESSMENT: 1. End-stage renal disease, on hemodialysis on a Wednesday, Wednesday, Wednesday schedule. 2. Volume overload currently improved. 3. Periorbital cellulitis, status post vancomycin. 4. Chronic kidney disease mineral bone disorder. 5. Anemia of chronic disease. PLAN: Patient is stable for discharge post hemodialysis today. Follow up as outpatient. Increase UF as tolerated as outpatient. MMODL / IJN: [id number] /
--- NOTE | 2020-07-01 22:11 | DS ---
DISCHARGE SUMMARY 80-year-old white female who was admitted with bronchiectasis, CHF exacerbation, end- stage renal disease, hypertension acceleration, periorbital cellulitis. DISCHARGE MEDS: 1. Keflex 500 b.i.d. for 7 days. 2. Cordarone 200 daily. 3. Hydralazine 100 t.i.d. 4. Ciprofloxacin ophthalmologic solution 2 drops in bilateral eyes for 5 days. 5. Cozaar 12.5 daily. 6. Imdur 60 mg daily. 7. Inderal 30 b.i.d. 8. Potassium chloride 20 mEq daily. 9. Lasix 40 mg daily. 10.Norvasc 5 mg b.i.d. 11.Synthroid 100 mcg daily. 12.Lipitor 40 daily. 13.Protonix 40 daily. 14.Ozempic 0.25 mg subcutaneously every 14 days. 15.Aranesp 40 mcg Q 7 days. 16.Nephro-Rosario 0.8 mg daily. 17.Eliquis 2.5 mg b.i.d. CONDITION: Stable. PROGNOSIS: Guarded. Ambulate as tolerated. Patient was admitted with severe hypertension acceleration, hypertensive urgency, hypertensive encephalopathy, end-stage renal disease with fluid overload, acute on chronic diastolic heart failure, bronchiectasis, periorbital cellulitis. Multiple medications were needed to be increased on the multiple days due to hypertension acceleration urgency and near syncope, CHF, diuresis was treated with end- stage renal disease, fluid overload, increased dialysis. Antibiotics were started for periorbital cellulitis, bronchiectasis. Please see further orders. Follow up in my office. Condition stable. Prognosis guarded. MMODL / IJN: [id number] /
[2020-07-02] MEDS ORDERED: VANCOMYCIN 1,000 MG in SODIUM CHLORIDE 0.9% 250 ML IVPB ONE (08:00)
[2020-07-02] MEDS ORDERED: AMIODARONE 200 MG TAB PO SCH (09:00)
== END 2020-07-01 18:43 | disposition home or self-care (01) | DRG 304 ==
LOC: EC 16:22 → 4SSUR 19:35 → OBSVTOIN 06-26 13:52
PROVIDERS: ADMIT Family Medicine; ATTEND Family Medicine
PROC: 5A1D70Z Performance of Urinary Filtration, Intermittent, Less than 6 Hours Per Day (ICD-10-PCS; principal; 2020-06-24)
DX: I16.0 Hypertensive urgency (principal); N18.6 End stage renal disease; I50.33 Acute on chronic diastolic (congestive) heart failure; J18.9 Pneumonia, unspecified organism; I67.4 Hypertensive encephalopathy; J90 Pleural effusion, not elsewhere classified; J44.0 Chronic obstructive pulmonary disease with (acute) lower respiratory infection; L03.213 Periorbital cellulitis; J98.11 Atelectasis; I16.1 Hypertensive emergency; I27.22 Pulmonary hypertension due to left heart disease; D63.1 Anemia in chronic kidney disease; E83.9 Disorder of mineral metabolism, unspecified; E11.22 Type 2 diabetes mellitus with diabetic chronic kidney disease; Z99.2 Dependence on renal dialysis; I48.0 Paroxysmal atrial fibrillation; Z20.822 Contact with and (suspected) exposure to COVID-19; I13.2 Hypertensive heart and chronic kidney disease with heart failure and with stage 5 chronic kidney disease, or end stage renal disease; E87.6 Hypokalemia; M19.90 Unspecified osteoarthritis, unspecified site; E78.5 Hyperlipidemia, unspecified; E03.9 Hypothyroidism, unspecified; F41.9 Anxiety disorder, unspecified; I08.0 Rheumatic disorders of both mitral and aortic valves; T50.1X5A Adverse effect of loop [high-ceiling] diuretics, initial encounter; Z53.29 Procedure and treatment not carried out because of patient's decision for other reasons; Z79.899 Other long term (current) drug therapy; Z79.01 Long term (current) use of anticoagulants; Z79.890 Hormone replacement therapy; Z87.01 Personal history of pneumonia (recurrent); Z86.718 Personal history of other venous thrombosis and embolism; Z87.19 Personal history of other diseases of the digestive system; Z90.710 Acquired absence of both cervix and uterus; Z98.890 Other specified postprocedural states; Z98.42 Cataract extraction status, left eye; Z98.41 Cataract extraction status, right eye; Z88.5 Allergy status to narcotic agent; Z88.0 Allergy status to penicillin; Z88.2 Allergy status to sulfonamides; Z88.7 Allergy status to serum and vaccine; Z88.1 Allergy status to other antibiotic agents; Z91.041 Radiographic dye allergy status; Z91.040 Latex allergy status; Z83.3 Family history of diabetes mellitus; Z84.1 Family history of disorders of kidney and ureter
CPT/HCPCS: 36415; 71046; 71250; 76604; 80048; 80053; 80061; 82550; 82728; 83540; 83550; 83605; 83735; 83880; 84439; 84443; 84484; 85025; 85610; 85730; 87635; 90935; 93005; 93306; 94760; 99285

== ENCOUNTER 2020-07-02 11:33 | Inpatient (IN) | payer MEDICARE, OTHER ==
[2020-07-02] MEDS ORDERED: NON FORMULARY DRUG (Semaglutide [Ozempic] 0.25 MG/0.2 ML Pen.Injctr) SQ SCH (20:30)
[2020-07-02] MEDS ORDERED: SODIUM CHLORIDE 0.9% 1,000 ML IV SCH (20:45)
[2020-07-02] MEDS ORDERED: DEXTROSE 50% SYRINGE 50 ML IVP STA (20:50)
[2020-07-02 20:54] LABS: Anisocytosis Slight; HCT 27.4 % (34.0-46.0); HGB 9.1 gm/dL (11.4-16.0); MCHC 33.3 g/dL (31.0-37.0); Mean Platelet Volume 8.5; Platelet Count 283 k/uL (150-450); RBC 2.86 m/uL (3.80-5.40); RDW 16.2 % (11.5-15.5); WBC 4.4 k/uL (3.8-10.6)
[2020-07-02 20:59] LABS: MCV 96.1 fL (80.0-100.0)
[2020-07-02] MEDS ORDERED: amLODIPine 5 MG TAB PO SCH (21:00)
[2020-07-02 21:10] LABS: ALT 149 U/L (4-34); AST 116 U/L (14-36); African American GFR (CKD) 16 (>60 ml/min/1.73 sqM); Albumin 3.3 g/dL (3.5-5.0); Albumin/Globulin Ratio 1.2; Alkaline Phosphatase 86 U/L (38-126); Anion Gap 6 mmol/L; Blood Urea Nitrogen 28 mg/dL (7-17); Calcium 8.6 mg/dL (8.4-10.2); Carbon Dioxide 27 mmol/L (22-30); Chloride 98 mmol/L (98-107); Globulin 2.7 g/dL; Glucose 213 mg/dL (74-99); Non-African American GFR(CKD) 14 (>60 ml/min/1.73 sqM); Potassium 5.6 mmol/L (3.5-5.1); Sodium 131 mmol/L (137-145); Total Bilirubin 0.7 mg/dL (0.2-1.3)
[2020-07-02] MEDS ORDERED: hydrALAZINE HCL 20 MG/ML 1 ML VIAL IVP PRN (21:22)
[2020-07-02] MEDS: CEPHALEXIN 500 MG CAP PO SCH (21:41)
[2020-07-02] MEDS: PROPRANOLOL 10 MG TAB PO SCH (21:41)
[2020-07-02] MEDS: hydrALAZINE HCL 50 MG TAB PO SCH (21:41)
[2020-07-02] MEDS: APIXABAN 2.5 MG TABLET PO SCH (21:41)
[2020-07-02] MEDS: FUROSEMIDE 10 MG/ML 4 ML VIAL IV SCH (21:42)
[2020-07-03] MEDS: CIPROFLOXACIN 0.3% OPHTH SOLN 5 ML BTL RIGHT EYE SCH ×7 (01:53→23:32)
[2020-07-03] MEDS: LEVOTHYROXINE 100 MCG TAB PO SCH (05:55)
[2020-07-03 07:23] LABS: Glucose,Whole Blood 145 mg/dL (75-99)
[2020-07-03] MEDS ORDERED: POTASSIUM CHLORIDE ER 20 MEQ TAB.ER PO SCH (09:00)
[2020-07-03] MEDS ORDERED: amLODIPine 10 MG TAB PO SCH (09:00)
--- NOTE | 2020-07-03 09:32 | P.CRDCN ---
History of Present Illness History of present illness: HISTORY OF PRESENTING ILLNESS This is a pleasant 80-year-old female past medical history significant for COPD, diabetes mellitus, hypertension, chronic kidney disease on hemodialys is, chronic diastolic heart failure, pulmonary hypertension, paroxysmal atrial fibrillation on eliquis and aortic stenosis. She denies prior history of coronary artery disease. She follows in the office with Dr. Coronel. We have been asked to see in consultation for persistent hypertension. she is seen and examined resting comfortably lying flat in bed in no acute distress. She was sent to the hospital as a direct admit from her PCP secondary to persistent hypertension. She was discharged from the hospital 2 days ago.at the time of discharge she was on amiodarone 200 mg daily, amlodipine 5 mg twice a day, Lasix 40 mg daily, hydralazine 100 mg 3 times a day, propanolol 30 mg twice a day, Imd ur 60 mg daily and losartan 12.5 mg daily. On the day of discharge her blood pressure was 131/56. On admission to the ER her blood pressure was 207/95 repeat this morning 126/66. She states she had been taking all of her prescribed medications since being discharged. She is seen and examined resting comfortably laying flat in bed in no acute distress. She denies chest pain, shortness of breath, dizziness or palpitations. She states she is due for dialysis today. DIAGNOSTICS EKG reveals sinus bradycardia heart rate [address] or T-wave abnormalities. Laboratory reviewed, WBC 4.4, hgb 9.1, plt 283, sodium 131, potassium 5.6, creatinine 3.0 and troponin negative x1. Most recent echocardiogram obtained 06/25/2020 revealed preserved LV systolic function with ejection fraction 50-55%, moderate aortic stenosis with a mean gradient of 30 mmHg, moderate mitral regurgitation, mild tricuspid regurgitation and moderate pulmonary hypertension with an RVSP of 71 mmHg. REVIEW OF SYSTEMS At the time of my exam: CONSTITUTIONAL: Denies fever or chills. CARDIOVASCULAR: Denies chest pain, shortness of breath, orthopnea, PND or palpitations. RESPIRATORY: Denies cough. GASTROINTESTINAL: Denies abdominal pain, diarrhea, constipation, nausea or vomiting. MUSCULOSKELETAL: Denies myalgias. NEUROLOGIC: Denies numbness, tingling, headacbe or weakness. ENDOCRINE: Denies fatigue, weight change, polydipsia or polyurina. GENITOURINARY: Denies burning, hematuria or urgency with micturation. HEMATOLOGIC: Denies history of anemia or bleeding. PHYSICAL EXAMINATION CONSTITUTIONAL: No apparent distress. HEENT: Head is normocephalic. Pupils are equal, round. Sclerae anicteric. Mucous membranes of the mouth are moist. No JVD. No carotid bruit. CHEST EXAMINATION: Lungs are clear to auscultation. No chest wall tenderness is noted on palpation or with deep breathing. HEART EXAMINATION: Regular rate and rhythm. S1, S2 heard. Systolic ejection murmur at the base, no gallops or rub. ABDOMEN: Soft, nontender. Positive bowel sounds. EXTREMITIES: 2+ peripheral pulses, no lower extremity edema and no calf tenderness. NEUROLOGIC EXAMINATION: Patient is awake, alert and oriented x3. ASSESSMENT Hypertension Diabetes mellitus End stage renal disease on hemodialysis Chronic diastolic heart failure Aortic stenosis Paroxysmal atrial fibrillation on eliquis, currently in SR PLAN The patient and her family are concerned about the amount of pills she takes per day. The patient states she is not going to take all these pills because she didn't need them before so what has changed. She was educated at length regarding the need for anti-hypertensives to control her blood pressure and likely the worsening blood pressure is due to her end stage renal disease. We discussed adjusting the dosing of her amlodipine to 10 mg daily rather than BID to decrease the frequency. Overall review of her med list there are not many other options to decrease her pill intake. Recommend outpatient follow up with Dr. Coronel for further medication adjustments. Thank you kindly for this consultation. Nurse Practitioner note has been reviewed, I agree with a documented findings and plan of care. Patient was seen and examined. Past Medical History Past Medical History: Atrial Fibrillation, Heart Failure, COPD, Diabetes Mellitus, Dialysis, Deep Vein Thrombosis (DVT), Hyperlipidemia, Hypertension, Osteoarthritis (OA), Pneumonia, Renal Disease, Syncope Additional Past Medical History / Comment(s): Pt recently admitted to [facility] on 06/25/19 with Afib RVR, diastolic heart failure, ESRD with hemodialysis, blood clot candelario port area in her chest. Other hx: NIDDM type II, ESRD with hemodialysis on M/W/, chronic anemia, chronic CHF, moderate pulmonary HTN, diverticulitis, lower GI bleed, bowel obstructions with surgery twice. History of Any Multi-Drug Resistant Organisms: None Reported Past Surgical History: Cholecystectomy, Hysterectomy, Tonsillectomy, Tubal Ligation Additional Past Surgical History / Comment(s): R chest dialysis catheter, EGDs/colonoscopies, bowel resections due to obstruction x2, bilateral cataracts removed. Past Anesthesia/Blood Transfusion Reactions: No Reported Reaction Past Psychological History: No Psychological Hx Reported Additional Psychological History / Comment(s): Pt resides alone in a senior apartment. She is receiving home care. She uses no assistive device. She drives. Smoking Status: Never smoker Past Alcohol Use History: None Reported Past Drug Use History: None Reported - Past Family History Mother Family Medical History: No Reported History Additional Family Medical History / Comment(s): Mother was healthy and lived to be 79yrs old. Son(s) Family Medical History: Diabetes Mellitus, Dialysis, Renal Disease Additional Family Medical History / Comment(s): Son had renal failure/dialysis and at the age of 52 yrs. Brother(s) Family Medical History: Diabetes Mellitus Medications and Allergies Home Medications Medication Instructions Recorded Confirmed Type Atorvastatin [Lipitor] 40 mg PO DAILY 05/04/19 07/02/20 History Pantoprazole [Protonix] 40 mg PO AC-BRKFST #30 tablet.dr 05/11/19 07/02/20 Rx Semaglutide [Ozempic] 0.25 mg SQ Q14D 06/25/19 07/02/20 History Darbepoetin Tien [Aranesp] 40 mcg SQ Q7D syringe 07/01/19 07/02/20 Rx Nephro-Rosario 0.8mg 1 tab PO DAILY 07/18/19 07/02/20 History Apixaban [Eliquis] 2.5 mg PO BID 06/22/20 07/02/20 History Amiodarone [Cordarone] 200 mg PO DAILY tab 07/01/20 07/02/20 Rx Cephalexin [Keflex] 500 mg PO BID 7 Days #14 cap 07/01/20 07/02/20 Rx Ciprofloxacin Ophth Soln [Ciloxan 2 drops RIGHT EYE Q4HR 10 Days #5 07/01/20 07/02/20 Rx 0.3% Ophth Soln] ml Furosemide [Lasix] 40 mg PO DAILY 90 Days #90 tab 07/01/20 07/02/20 Rx Isosorbide Mononitrate ER [Imdur] 60 mg PO DAILY 90 Days #90 07/01/20 07/02/20 Rx tab.er.24h Levothyroxine Sodium [Synthroid] 100 mcg PO DAILY@0630 90 Days #90 07/01/20 07/02/20 Rx tab Losartan [Cozaar] 12.5 mg PO DAILY 90 Days #90 tab 07/01/20 07/02/20 Rx Potassium Chloride ER [K-Dur 20] 20 meq PO DAILY 90 Days #90 07/01/20 07/02/20 Rx tab.er.prt Propranolol [Inderal] 30 mg PO BID 30 Days #60 tab 07/01/20 07/02/20 Rx amLODIPine [Norvasc] 5 mg PO BID 30 Days #60 tab 07/01/20 07/02/20 Rx hydrALAZINE HCL [Apresoline] 100 mg PO TID 30 Days #90 tab 07/01/20 07/02/20 Rx Allergies Allergy/AdvReac Type Severity Reaction Status Date / Time Penicillins Allergy Severe Rash/Hives Verified 07/02/20 19:43 codeine Allergy Rash/Hives Verified 07/02/20 19:43 diphenhydramine HCl Allergy Swelling Verified 07/02/20 19:43 [From Benadryl] erythromycin base Allergy Rash/Hives Verified 07/02/20 19:43 Iodinated Contrast Media Allergy Rash/Hives Verified 07/02/20 19:43 [Iodinated Contrast Media - IV Dye] iodine Allergy Rash/Hives Verified 07/02/20 19:43 latex Allergy Rash/Hives Verified 07/02/20 19:43 Sulfa (Sulfonamide Allergy Rash/Hives Verified 07/02/20 19:43 Antibiotics) Tetanus Vaccines and Toxoid Allergy Unknown Verified 07/02/20 19:43 [Tetanus Vaccines & Toxoid] Tetracyclines Allergy Rash/Hives Verified 07/02/20 19:43 aspirin AdvReac GI Bleed Verified 07/02/20 19:43 Physical Exam Vitals: Vital Signs Temp Pulse Resp BP Pulse Ox 07/03/20 07:47 98.8 F 56 L 18 126/66 91 L 07/03/20 02:30 98.2 F 57 L 138/69 98 07/02/20 20:00 97.3 F L 63 18 207/95 97 07/02/20 19:34 97.3 F L 63 18 207/95 97 Intake and Output 07/02/20 07/03/20 07/03/20 22:59 06:59 14:59 Other: Weight 61.2 kg 61.2 kg Results 07/02/20 20:40 07/02/20 20:40 Cardiac Enzymes 07/02/20 07/02/20 Range/Units 20:40 20:40 AST 116 H (14-36) U/L Troponin I <0.012 (0.000-0.034) ng/mL CBC 07/02/20 Range/Units 20:40 WBC 4.4 (3.8-10.6) k/uL RBC 2.86 L (3.80-5.40) m/uL Hgb 9.1 L (11.4-16.0) gm/dL Hct 27.4 L (34.0-46.0) % Plt Count 283 (150-450) k/uL Comprehensive Metabolic Panel 07/02/20 Range/Units 20:40 Sodium 131 L (137-145) mmol/L Potassium 5.6 H (3.5-5.1) mmol/L Chloride 98 (98-107) mmol/L Carbon Dioxide 27 (22-30) mmol/L BUN 28 H (7-17) mg/dL Creatinine 3.00 H (0.52-1.04) mg/dL Glucose 213 H (74-99) mg/dL Calcium 8.6 (8.4-10.2) mg/dL AST 116 H (14-36) U/L ALT 149 H (4-34) U/L Alkaline Phosphatase 86 (38-126) U/L Total Protein 6.0 L (6.3-8.2) g/dL Albumin 3.3 L (3.5-5.0) g/dL Current Medications Generic Name Dose Route Start Last Admin Trade Name Freq PRN Reason Stop Dose Admin Albuterol/Ipratropium 3 ml 07/03/20 03:17 Ipratropium-Albuterol 3 Ml Neb INHALATION RT-TID PRN Shortness Of Breath Or Wheezing Amiodarone HCl 200 mg 07/03/20 09:00 Amiodarone 200 Mg Tab PO DAILY DORI Amlodipine Besylate 5 mg 07/02/20 21:00 07/02/20 21:41 Amlodipine 5 Mg Tab PO 5 mg BID DORI Administration Apixaban 2.5 mg 07/02/20 21:00 07/02/20 21:41 Apixaban 2.5 Mg Tablet PO 2.5 mg BID DORI Administration Atorvastatin Calcium 40 mg 07/03/20 09:00 Atorvastatin 40 Mg Tab PO DAILY ON LICENSE OF [facility] Cephalexin 500 mg 07/02/20 21:00 07/02/20 21:41 Cephalexin 500 Mg Cap PO 500 mg BID DORI Administration Ciprofloxacin 2 drops 07/03/20 00:00 07/03/20 05:55 Ciprofloxacin 0.3% Ophth Soln 5 Ml Btl RIGHT EYE 2 drops Q4HR DORI Administration Darbepoetin Tien 40 mcg 07/24/20 09:00 Darbepoetin Tien 40 Mcg/0.4 Ml Syringe SQ Q7D ON LICENSE OF [facility] Furosemide 40 mg 07/02/20 21:30 07/02/20 21:42 Furosemide 10 Mg/Ml 4 Ml Vial IV Not Given Q12HR DORI Hydralazine HCl 100 mg 07/02/20 22:00 07/02/20 21:41 Hydralazine Hcl 50 Mg Tab PO 100 mg TID DORI Administration Hydralazine HCl 10 mg 07/02/20 21:22 Hydralazine Hcl 20 Mg/Ml 1 Ml Vial IVP Q6HR PRN Blood Pressure - High Insulin Aspart 0 unit 07/03/20 07:30 Insulin Aspart (Novolog) 100 Unit/Ml Vial SQ ACHS ON LICENSE OF [facility] Protocol Isosorbide Mononitrate 60 mg 07/03/20 09:00 Isosorbide Mononitrate Er 60 Mg Tab.Er.24h PO DAILY ON LICENSE OF [facility] Levothyroxine Sodium 100 mcg 07/03/20 06:30 07/03/20 05:55 Levothyroxine 100 Mcg Tab PO 100 mcg DAILY@0630 ON LICENSE OF [facility] Administration Losartan Potassium 12.5 mg 07/03/20 09:00 Losartan 25 Mg Tab PO DAILY ON LICENSE OF [facility] Multivit/Ca Carb/B Cmplx/FA/Prenat 1 each 07/03/20 09:00 Folic Acid-Vit B Complex-Vit C 1 Cap PO DAILY ON LICENSE OF [facility] Non-Formulary Medication 0.25 mg 07/02/20 20:30 07/02/20 21:27 Semaglutide [Ozempic] SQ Not Given Q14D ON LICENSE OF [facility] Pantoprazole Sodium 40 mg 07/03/20 07:30 Pantoprazole 40 Mg Tablet PO AC-BRKFST DORI Potassium Chloride 20 meq 07/03/20 09:00 Potassium Chloride Er 20 Meq Tab.Er PO DAILY DORI Propranolol HCl 30 mg 07/02/20 21:00 07/02/20 21:41 Propranolol 10 Mg Tab PO 30 mg BID DORI Administration Intake and Output 07/02/20 07/03/20 07/03/20 22:59 06:59 14:59 Other: Weight 61.2 kg 61.2 kg 07/02/20 20:40 07/02/20 20:40
[2020-07-03] MEDS: INSULIN ASPART (NovoLOG) 100 UNIT/ML VIAL SQ SCH ×4 (10:19→20:12)
[2020-07-03] MEDS: PANTOPRAZOLE 40 MG TABLET PO SCH (10:22)
--- NOTE | 2020-07-03 10:40 | P.CNPUL ---
History of Present Illness Reason for consult: dyspnea, hypoxemia, pleural effusion Chief complaint: Uncontrolled blood pressure and shortness of breath History of present illness: patient is a 80-year-old female with prior medical history significant for COPD diabetes hypertension hypertensive cardiovascular disease and chronic kidney disease has been on hemodialysis patient has component of the proximal atrial fibrillation and has been on direct oral anticoagulation and also on aortic tara nosis came into the hospital with ongoing shortness of breath and also uncontrolled hypertension, in the ER she was noted to have blood pressure 210/95, patient is well-known to me from prior medical history, she has a large left-sided pleural effusion and a small to moderate right-sided pleural effusion she insists on getting dialysis done refused thoracentesis, further workup and evaluation revealed ejection fraction of the 50-55% and moderate aortic stenosis with the mean gradient of 30 along with MR and TR significant pulmonary hypertension with RVSP of 71, patient has intermittent snoring as well she needs to be evaluated for sleep disorder breathing and sleep apnea, however patient is pretty much worked up with her uncontrolled hypertension and refused to undergo thoracentesis and sleep study at this time but may consider down the road in the future these problems do not resolve Review of Systems All systems: negative Past Medical History Past Medical History: Atrial Fibrillation, Heart Failure, COPD, Diabetes Mellitus, Dialysis, Deep Vein Thrombosis (DVT), Hyperlipidemia, Hypertension, Osteoarthritis (OA), Pneumonia, Renal Disease, Syncope Additional Past Medical History / Comment(s): Pt recently admitted to [facility] on 06/25/19 with Afib RVR, diastolic heart failure, ESRD with hemodialysis, blood clot candelario port area in her chest. Other hx: NIDDM type II, ESRD with h emodialysis on //, chronic anemia, chronic CHF, moderate pulmonary HTN, diverticulitis, lower GI bleed, bowel obstructions with surgery twice. History of Any Multi-Drug Resistant Organisms: None Reported Past Surgical History: Cholecystectomy, Hysterectomy, Tonsillectomy, Tubal Ligation Additional Past Surgical History / Comment(s): R chest dialysis catheter, EGDs/colonoscopies, bowel resections due to obstruction x2, bilateral cataracts removed. Past Anesthesia/Blood Transfusion Reactions: No Reported Reaction Past Psychological History: No Psychological Hx Reported Additional Psychological History / Comment(s): Pt resides alone in a senior apartment. She is receiving home care. She uses no assistive device. She drives. Smoking Status: Never smoker Past Alcohol Use History: None Reported Past Drug Use History: None Reported - Past Family History Mother Family Medical History: No Reported History Additional Family Medical History / Comment(s): Mother was healthy and lived to be 79yrs old. Son(s) Family Medical History: Diabetes Mellitus, Dialysis, Renal Disease Additional Family Medical History / Comment(s): Son had renal failure/dialysis and at the age of 52 yrs. Brother(s) Family Medical History: Diabetes Mellitus Medications and Allergies Home Medications Medication Instructions Recorded Confirmed Type Atorvastatin [Lipitor] 40 mg PO DAILY 05/04/19 07/02/20 History Pantoprazole [Protonix] 40 mg PO ASTRID-BRKFST #30 tablet.dr 05/11/19 07/02/20 Rx Semaglutide [Ozempic] 0.25 mg SQ Q14D 06/25/19 07/02/20 History Darbepoetin Tien [Aranesp] 40 mcg SQ Q7D syringe 07/01/19 07/02/20 Rx Nephro-Rosario 0.8mg 1 tab PO DAILY 07/18/19 07/02/20 History Apixaban [Eliquis] 2.5 mg PO BID 06/22/20 07/02/20 History Amiodarone [Cordarone] 200 mg PO DAILY tab 07/01/20 07/02/20 Rx Cephalexin [Keflex] 500 mg PO BID 7 Days #14 cap 07/01/20 07/02/20 Rx Ciprofloxacin Ophth Soln [Ciloxan 2 drops RIGHT EYE Q4HR 10 Days #5 07/01/20 07/02/20 Rx 0.3% Ophth Soln] ml Furosemide [Lasix] 40 mg PO DAILY 90 Days #90 tab 07/01/20 07/02/20 Rx Isosorbide Mononitrate ER [Imdur] 60 mg PO DAILY 90 Days #90 07/01/20 07/02/20 Rx tab.er.24h Levothyroxine Sodium [Synthroid] 100 mcg PO DAILY@0630 90 Days #90 07/01/20 07/02/20 Rx tab Losartan [Cozaar] 12.5 mg PO DAILY 90 Days #90 tab 07/01/20 07/02/20 Rx Potassium Chloride ER [K-Dur 20] 20 meq PO DAILY 90 Days #90 03/08/21 03/09/21 Rx tab.er.prt Propranolol [Inderal] 30 mg PO BID 30 Days #60 tab 07/01/20 07/02/20 Rx amLODIPine [Norvasc] 5 mg PO BID 30 Days #60 tab 07/01/20 07/02/20 Rx hydrALAZINE HCL [Apresoline] 100 mg PO TID 30 Days #90 tab 07/01/20 07/02/20 Rx Allergies Allergy/AdvReac Type Severity Reaction Status Date / Time Penicillins Allergy Severe Rash/Hives Verified 07/02/20 19:43 codeine Allergy Rash/Hives Verified 07/02/20 19:43 diphenhydramine HCl Allergy Swelling Verified 07/02/20 19:43 [From Benadryl] erythromycin base Allergy Rash/Hives Verified 07/02/20 19:43 Iodinated Contrast Media Allergy Rash/Hives Verified 07/02/20 19:43 [Iodinated Contrast Media - IV Dye] iodine Allergy Rash/Hives Verified 07/02/20 19:43 latex Allergy Rash/Hives Verified 07/02/20 19:43 Sulfa (Sulfonamide Allergy Rash/Hives Verified 07/02/20 19:43 Antibiotics) Tetanus Vaccines and Toxoid Allergy Unknown Verified 07/02/20 19:43 [Tetanus Vaccines & Toxoid] Tetracyclines Allergy Rash/Hives Verified 07/02/20 19:43 aspirin AdvReac GI Bleed Verified 07/02/20 19:43 Physical Exam Vitals: Vital Signs Temp Pulse Resp BP Pulse Ox 07/03/20 07:47 98.8 F 56 L 18 126/66 91 L 07/03/20 02:30 98.2 F 57 L 138/69 98 07/02/20 20:00 97.3 F L 63 18 207/95 97 07/02/20 19:34 97.3 F L 63 18 207/95 97 Intake and Output 07/02/20 07/03/20 07/03/20 22:59 06:59 14:59 Other: Weight 61.2 kg 61.2 kg - Constitutional General appearance: average body habitus, cooperative, disheveled, mild distress - EENT Eyes: PERRLA Ears: bilateral: normal - Neck Neck: normal ROM Carotids: bilateral: upstroke normal Thyroid: bilateral: normal size - Respiratory Respiratory: bilateral: diminished - Cardiovascular Rhythm: regular Heart sounds: normal: S1, S2 - Gastrointestinal General gastrointestinal: normal bowel sounds, soft - Neurologic Neurologic: CNII-XII intact - Musculoskeletal Musculoskeletal: gait normal, generalized weakness - Psychiatric Psychiatric: A&O x's 3, appropriate affect, intact judgment & insight Results - Laboratory Findings CBC and BMP: 07/02/20 20:40 07/02/20 20:40 Abnormal lab findings: Abnormal Labs 07/02/20 07/02/20 07/03/20 20:40 20:40 07:22 RBC 2.86 L Hgb 9.1 L Hct 27.4 L RDW 16.2 H Sodium 131 L Potassium 5.6 H BUN 28 H Creatinine 3.00 H Glucose 213 H POC Glucose (mg/dL) 145 H AST 116 H ALT 149 H Total Protein 6.0 L Albumin 3.3 L - Diagnostic Findings Chest x-ray: pending Assessment and Plan Assessment: bilateral pleural effusion left more than the right likely related to diastolic heart failure primary etiologies cannot be excluded Paroxysmal atrial fibrillation on diet control anticoagulants Hypertensive urgency Chronic renal failure on hemodialysis stage V Pulmonary hypertension of moderate to severe category Sleep disorder breathing and sleep apnea Plan: continue current medications with better control of the blood pressure supplemental oxygen deep breathing exercises incentive spirometry Hemodialysis plan continue home medications patient continued to refuse thoracentesis Will order a follow-up chest x-ray Sleep study as outpatient Time with Patient: Greater than 30
[2020-07-03] MEDS: IPRATROPIUM-ALBUTEROL 3 ML NEB INHALATION PRN ×2 (10:58→20:28)
[2020-07-03 11:39] LABS: Glucose,Whole Blood 152 mg/dL (75-99)
--- NOTE | 2020-07-03 16:07 | CONS ---
CONSULTATION Patient is an 80-year-old female with end-stage renal disease, on hemodialysis on a Wednesday, Wednesday, Wednesday schedule. She was admitted to the hospital with complaints of chest pain, not feeling well, nausea and vomiting. The patient has been complaining that she is maintained on a large amount of medications and she states that she gets nauseated after she takes the medications. At this point it is not clear which medications cause the nausea, but patient wants the medications to be decreased. This morning she was quite upset with her nursing staff. However, I tried to calm her down and I showed her that she is in good hands. No complaints of fever, chills. No diarrhea. PAST MEDICAL HISTORY: End-stage renal disease, coronary artery disease, hypertension, CKD mineral bone disorder, COPD, history of atrial fibrillation, type 2 diabetes, history of pneumonia, diverticulitis, moderate pulmonary hypertension. PAST SURGICAL HISTORY: Cholecystectomy, hysterectomy, tonsillectomy, tubal ligation, PermCath placement, EGDs, colonoscopies, cataract surgery, bowel resection for obstruction. SOCIAL HISTORY: Negative for smoking, drug abuse or alcohol abuse. MEDICATIONS: Medications at home include Lipitor, Protonix, Ozempic, Aranesp, Eliquis, Cordarone, Keflex, Lasix, Imdur, Synthroid, Cozaar, potassium, Inderal, Norvasc, hydralazine. ALLERGIES: MULTIPLE. Please see list. REVIEW OF SYSTEMS: As per HPI. Other systems negative. PHYSICAL EXAMINATION: Patient is comfortable, awake, not in any acute distress. Alert, oriented x3. Blood pressure was 126/66, heart rate 56 per minute. She is afebrile. EXAMINATION OF THE HEART: S1 and S2. EXAMINATION OF LUNGS: Bilateral breath sounds are heard. ABDOMEN: Soft, non-tender. Examination of lower extremities shows no significant edema. SCHOOL AGE PROGRAM ASSOCIATE exam is grossly intact. LABS: Sodium 131, potassium 5.6, hemoglobin 9.1 g/dL yesterday. ASSESSMENT: 1. End-stage renal disease, on hemodialysis on a Wednesday, Wednesday, Wednesday schedule. 2. Mild hyperkalemia. Expect improvement with dialysis today. 3. Hypertension; blood pressure currently not elevated, although her pressure was high in the 200 range when she first came into the hospital. I believe she was quite stressed out at that time. 4. Admission for volume overload. PLAN: Hold antihypertensive medications for now, as patient will be dialyzed. We will try to remove about 1-2 liters as tolerated. I will decrease the Norvasc to 5 mg daily so that we have room to remove more fluid on dialysis. The hydralazine dose as well can be decreased, and if more blood pressure medications are needed we can increase her angiotensin receptor blockers. I will discontinue the potassium, as patient is hyperkalemic. Plan is to discontinue potassium, decrease Norvasc to 5 mg daily. Hemodialysis today. Hold IV Lasix and consider decreasing hydralazine further, and we can increase Cozaar if blood pressure is elevated. The patient should continue her beta blockers, as they have proven to be most effective in dialysis patients. Thank you for this consultation. Will continue to follow the patient with you during her hospitalization. YUMIKO / SHIRLEY: [id number] /
[2020-07-03 17:01] LABS: Glucose,Whole Blood 268 mg/dL (75-99)
--- NOTE | 2020-07-03 17:22 | HP ---
HISTORY AND PHYSICAL This is an 80-year-old white female with dyspnea, hypoxemia, pleural effusion, uncontrolled hypertension, shortness of breath. She came with blood pressure 220 systolic. Unclear whether she took her blood pressure pills at home, but her daughter states she did. She continues to have hypertension acceleration and near-syncope. Her oxygen level drops to 80, 88 with any ambulation. She is going to need oxygen at home set up. Also possible home oxygen at night. Uncontrolled hypertension and worsening breathing. She refused thoracentesis in the past. She may have to get the fluid removed from her lungs so she can breathe better. PAST MEDICAL HISTORY: Atrial fibrillation, heart failure, COPD, diabetes mellitus, end-stage renal disease, DVT, dyslipidemia, hypertension, osteoarthritis, renal disease, syncope, atrial fibrillation with RVR, type 2 diabetes mellitus, end-stage renal disease, lower GI bleed, bowel obstruction surgery surgeries, cholecystectomy, hysterectomy, tonsillectomy, tubal ligation. Mother 79 years old, son with diabetes mellitus, dialysis, renal disease. Brother with diabetes mellitus. HOME MEDICINES: 1. Lipitor 40 mg daily. 2. Protonix 40 mg daily. 3. Ozempic 0.25 every week. 4. Aranesp 40 mcg subcutaneously q.7. 5. Nephro tabs. 6. Eliquis 2.5 b.i.d. 7. Cordarone 200 daily. 8. Keflex 500 b.i.d. 9. Cipro ophthalmologic solution in both eyes for periorbital cellulitis which she was recently treated with. 10.Lasix 40 mg daily. 11.Imdur 60 mg daily. 12.Synthroid 100 mcg daily. 13.Cozaar 12.5 daily. 14.Potassium chloride 20 mEq daily. 15.Inderal 30 b.i.d. 16.Norvasc 5 mg b.i.d. 17.Hydralazine 100 t.i.d. ALLERGIES: PENICILLIN, CODEINE, BENADRYL, ERYTHROMYCIN, IODINE, LATEX, SULFA, TETANUS, TETRACYCLINE, ASPIRIN. PHYSICAL EXAMINATION: As mentioned, blood pressure on admission was 207/95, currently it is down to 120s over 60s, temperature 98.8, pulse 96, oxygenation 91%. CONSTITUTIONAL: Dishevelled. Mild acute distress. NECK: Supple. LUNGS: Bilaterally diminished. CARDIAC: S1, S2. GI: Normal bowel sounds. Soft. NEUROLOGIC: Cranial nerves are intact. MUSCULOSKELETAL: Gait normal. Generalized weakness. PSYCH: Alert and oriented x3. LABS: White count is 4.4, hemoglobin is 9.1, BUN 28, creatinine 3, sodium 131, potassium 5.6. ASSESSMENT: 1. Bilateral pleural effusion, left more than the right secondary to diastolic heart failure. Primary etiologies cannot be excluded. 2. Paroxysmal atrial fibrillation. 3. Hypertensive urgency. 4. Chronic renal failure, stage 5. 5. Pulmonary hypertension, moderate to severe. 6. Sleep disorder. Current need for home oxygen. Possible paracentesis, thoracentesis if she will allow us. Continue with dialysis. Hypertension; will have to be taking her medicines, which she may or may not have taken. Cardiology to address them. Please see further orders. MMODL / IJN: [id number] /
[2020-07-03] MEDS ORDERED: hydrALAZINE HCL 20 MG/ML 1 ML VIAL IVP STA (17:35)
[2020-07-03] MEDS: hydrALAZINE HCL 50 MG TAB PO SCH (18:20)
[2020-07-03] MEDS: AMIODARONE 200 MG TAB PO SCH (18:43)
[2020-07-03] MEDS: APIXABAN 2.5 MG TABLET PO SCH ×2 (18:43→20:10)
[2020-07-03] MEDS: ISOSORBIDE MONONITRATE ER 60 MG TAB.ER.24H PO SCH (19:31)
[2020-07-03] MEDS: CEPHALEXIN 500 MG CAP PO SCH ×2 (19:31→20:10)
[2020-07-03] MEDS: FOLIC ACID-VIT B COMPLEX-VIT C 1 CAP PO SCH (19:31)
[2020-07-03] MEDS: ATORVASTATIN 40 MG TAB PO SCH (19:31)
[2020-07-03] MEDS: LOSARTAN 25 MG TAB PO SCH (19:32)
[2020-07-03] MEDS: PROPRANOLOL 10 MG TAB PO SCH ×2 (19:32→19:33)
[2020-07-03 20:12] LABS: Glucose,Whole Blood 165 mg/dL (75-99)
[2020-07-04] MEDS: LEVOTHYROXINE 100 MCG TAB PO SCH (06:23)
[2020-07-04] MEDS: CIPROFLOXACIN 0.3% OPHTH SOLN 5 ML BTL RIGHT EYE SCH ×5 (06:23→21:28)
[2020-07-04 07:21] LABS: Glucose,Whole Blood 151 mg/dL (75-99)
[2020-07-04] MEDS: IPRATROPIUM-ALBUTEROL 3 ML NEB INHALATION PRN ×3 (07:53→20:15)
[2020-07-04] MEDS: APIXABAN 2.5 MG TABLET PO SCH ×2 (08:04→21:27)
[2020-07-04] MEDS: ATORVASTATIN 40 MG TAB PO SCH (08:04)
[2020-07-04] MEDS: AMIODARONE 200 MG TAB PO SCH (08:04)
[2020-07-04] MEDS: ISOSORBIDE MONONITRATE ER 60 MG TAB.ER.24H PO SCH ×2 (08:04→08:12)
[2020-07-04] MEDS: LOSARTAN 25 MG TAB PO SCH (08:04)
[2020-07-04] MEDS: INSULIN ASPART (NovoLOG) 100 UNIT/ML VIAL SQ SCH ×4 (08:05→21:27)
[2020-07-04] MEDS: CEPHALEXIN 500 MG CAP PO SCH ×2 (08:05→21:27)
[2020-07-04] MEDS: PANTOPRAZOLE 40 MG TABLET PO SCH (08:05)
[2020-07-04] MEDS: hydrALAZINE HCL 50 MG TAB PO SCH ×3 (08:05→21:28)
[2020-07-04] MEDS: amLODIPine 5 MG TAB PO SCH (08:05)
[2020-07-04] MEDS: PROPRANOLOL 10 MG TAB PO SCH ×2 (08:07→21:27)
[2020-07-04] MEDS: FOLIC ACID-VIT B COMPLEX-VIT C 1 CAP PO SCH (08:08)
--- NOTE | 2020-07-04 09:04 | XR ---
EXAMINATION TYPE: XR chest 1V portable DATE OF EXAM: 07/04/2020 COMPARISON: Chest x-ray 06/22/2020 HISTORY: Pleural effusion TECHNIQUE: Single frontal view of the chest is obtained. FINDINGS: Bibasilar increased density obscures the hemidiaphragms, blunting the costophrenic angles. Interstitium and central vascularity are increased. There is no evident pneumothorax. Central venous catheter is stable. The heart is enlarged. IMPRESSION: Correlate for congestive heart failure, volume overload, there are basilar effusions and probable associated atelectasis, pneumonia not excluded.
--- NOTE | 2020-07-04 10:10 | P.PN ---
Subjective HISTORY OF PRESENTING ILLNESS This is a pleasant 80-year-old female past medical history significant for COPD, diabetes mellitus, hypertension, chronic kidney disease on hemodialysis, chronic diastolic heart failure, pulmonary hypertension, paroxysmal atrial fibrillation on eliquis and aortic stenosis. She denies prior history of coronary artery disease. She follows in the office with Dr. Coronel. We have been asked to see in consultation for persistent hypertension. she is seen and examined resting comfortably lying flat in bed in no acute distress. She was sent to the hospital as a direct admit from her PCP secondary to persistent hypertension. She was discharged from the hospital 2 days ago.at the time of discharge she was on amiodarone 200 mg daily, amlodipine 5 mg twice a day, Lasix 40 mg daily, hydralazine 100 mg 3 times a day, propanolol 30 mg twice a day, Imdur 60 mg daily and losartan 12.5 mg daily. On the day of discharge her blood pressure was 131/56. On admission to the ER her blood pressure was 207/95 repeat this morning 126/66. She states she had been taking all of her prescribed medications since being discharged. She is seen and examined resting comfortably laying flat in bed in no acute distress. She denies chest pain, shortness of breath, dizziness or palpitations. She states she is due for dialysis today. 07/04/2020 Pt seen and examined sitting up in bed in no acute distress. She states she fe els weak and tired, which is typical on the day after dialysis for her. She denies chest pain or shortness of breath. She is frustrated regarding her blood pressure regimen and feels as though she is taking too many pills. Blood pressure last night 141/68 this morning was 187/85 heart rate 76 afebrile and maintaining oxygen saturation on nasal cannula. PHYSICAL EXAMINATION CONSTITUTIONAL: No apparent distress. HEENT: Head is normocephalic. Pupils are equal, round. Sclerae anicteric. Mucous membranes of the mouth are moist. No JVD. No carotid bruit. CHEST EXAMINATION: Lungs are clear to auscultation. No chest wall tenderness is noted on palpation or with deep breathing. HEART EXAMINATION: Regular rate and rhythm. S1, S2 heard. Systolic ejection murmur at the base, no gallops or rub. EXTREMITIES: 2+ peripheral pulses, no lower extremity edema and no calf tenderness. ASSESSMENT Hypertension Diabetes mellitus End stage renal disease on hemodialysis Chronic diastolic heart failure Aortic stenosis Paroxysmal atrial fibrillation on eliquis, currently in SR PLAN Recommend discontinuation of IV anti-hypertensives. This will give a false sense of how her blood pressure is controlled on oral regimen. Continue to follow blood pressure closely and make further recommendations as warranted. No changes today. Nurse Practitioner note has been reviewed, I agree with a documented findings and plan of care. Patient was seen and examined. Objective - Vital Signs Vital signs: Vital Signs Temp 98.5 F 07/04/20 07:35 Pulse 76 07/04/20 08:08 Resp 20 07/04/20 07:35 BP 187/85 07/04/20 07:35 Pulse Ox 95 07/04/20 07:35 Intake & Output 07/03/20 07/04/20 07/04/20 18:59 06:59 18:59 Output Total 1500 Balance -1500 Weight 63.5 kg Output: Hemodialysis 1500 Other: # Voids 2 - Labs CBC & Chem 7: 07/02/20 20:40 07/02/20 20:40 Labs: Abnormal Lab Results - Last 24 Hours (Table) 07/03/20 07/03/20 07/03/20 Range/Units 11:37 17:00 20:10 POC Glucose (mg/dL) 152 H 268 H 165 H (75-99) mg/dL 07/04/20 Range/Units 06:59 POC Glucose (mg/dL) 151 H (75-99) mg/dL
[2020-07-04 11:27] LABS: African American GFR (CKD) 22.5 (60.0-200.0); Albumin 3.5 g/dL (3.80-4.90); Albumin/Globulin Ratio 1.59 (1.60-3.17); Anion Gap 8.2 mmol/L (4.00-12.00); BUN/Creat Ratio 6.52 Ratio (12.00-20.00); Calcium 8.4 mg/dL (8.7-10.3); Carbon Dioxide 26.8 mmol/L (21.6-31.8); Globulin 2.2 g/dL (1.6-3.3); Non-African American GFR(CKD) 19.4 (60.0-200.0); Total Bilirubin 0.6 mg/dL (0.2-1.2); Total Protein 5.7 g/dL (6.2-8.2)
[2020-07-04 11:34] LABS: Basophils # (A) 0.06 X 10*3/uL (0.00-0.10); Basophils % (A) 1.1 %; Eosinophils # (A) 0.26 X 10*3/uL (0.04-0.35); Eosinophils % (A) 4.9 %; HCT 29.5 % (37.2-46.3); HGB 9.3 g/dL (12.0-15.0); Lymphocytes # (A) 0.71 X 10*3/uL (0.90-5.00); Lymphocytes % (A) 13.2 %; MCH 30.9 pg (27.0-32.0); MCHC 31.5 g/dL (32.0-37.0); Mean Platelet Volume 10.4 fL (9.5-12.2); Monocytes # (A) 0.51 X 10*3/uL (0.20-1.00); Monocytes % (A) 9.5 %; Neutrophils # (A) 3.78 X 10*3/uL (1.80-7.70); Neutrophils % (A) 70.6 %; Platelet Count 292 X 10*3/uL (140-440); RBC 3.01 X 10*6/uL (4.10-5.20); RDW 16.5 % (11.5-14.5); WBC 5.36 X 10*3/uL (4.50-10.00)
[2020-07-04 11:39] LABS: Glucose,Whole Blood 136 mg/dL (75-99)
[2020-07-04] MEDS ORDERED: LOSARTAN 25 MG TAB PO ONE (12:30)
--- NOTE | 2020-07-04 15:19 | PN ---
PROGRESS NOTE Patient is seen for followup for end-stage renal disease. Yesterday patient's blood pressure was down at about 110 mmHg and she stated that she was feeling sick and that she wanted her medications decreased. Patient tolerated her dialysis well and her blood pressure was down to 110 mmHg systolic, and therefore the hydralazine was decreased. However, it appears that last night patient's blood pressure increased to about 205 mmHg systolic. I was not informed about this and this morning she has been running about 170 to 180 mmHg. Patient remains upset. She states that she is still feeling sick from the hydralazine although may not be as sick as the higher dose of 100 mg. PHYSICAL EXAMINATION: Heart rate on examination today was 64 per minute. Patient is afebrile. EXAMINATION OF THE HEART: S1 and S2. EXAMINATION OF LUNGS: Bilateral breath sounds are heard. ABDOMEN: Soft, non-tender. Examination of lower extremities shows no evidence of edema. TREATMENT COORDINATOR exam is intact. LABS: Hemoglobin 9.3, sodium 136, potassium 5.0, BUN 15, creatinine 2.3. ASSESSMENT: 1. End-stage renal disease, on hemodialysis on a Wednesday, Wednesday, Wednesday schedule. 2. Hypertension, uncontrolled. Yesterday blood pressure was significantly lower and therefore medications were decreased. However, today her pressure is high again, and therefore the Cozaar will be increased to 25 mg. Since patient is not able to tolerate the higher dose of hydralazine, we can keep it at 50 but increase the frequency to 3 times a day as well. I had a long discussion with the patient as well as her daughter Priscilla regarding her medications. Hopefully the Protonix will help with her nausea. Continue with the beta blockers as well, as they help with the hypertension significantly in patients with end-stage renal disease. 3. Chronic kidney disease mineral bone disorder. 4. Hypothyroidism. 5. Dyslipidemia. PLAN: Maintain hydralazine at 50, as patient feels sick with with the higher dose, but keep it as t.i.d. and increase Cozaar to 25 mg and if needed 50 mg, depending on the blood pressure. Agree with continuing off of IV antihypertensive medications. We will also plan for hemodialysis tomorrow. MMODL / IJN: [id number] /
[2020-07-04 17:05] LABS: Glucose,Whole Blood 187 mg/dL (75-99)
[2020-07-04 20:49] LABS: Glucose,Whole Blood 150 mg/dL (75-99)
[2020-07-05] MEDS: CIPROFLOXACIN 0.3% OPHTH SOLN 5 ML BTL RIGHT EYE SCH ×6 (03:38→20:30)
[2020-07-05] MEDS: FUROSEMIDE 10 MG/ML 4 ML VIAL IV SCH (05:31)
[2020-07-05] MEDS: hydrALAZINE HCL 50 MG TAB PO SCH ×5 (05:32→20:32)
[2020-07-05] MEDS: LEVOTHYROXINE 100 MCG TAB PO SCH (06:10)
[2020-07-05 06:56] LABS: Glucose,Whole Blood 157 mg/dL (75-99)
[2020-07-05] MEDS: IPRATROPIUM-ALBUTEROL 3 ML NEB INHALATION PRN (07:53)
[2020-07-05] MEDS: INSULIN ASPART (NovoLOG) 100 UNIT/ML VIAL SQ SCH ×4 (08:09→20:31)
[2020-07-05] MEDS: PANTOPRAZOLE 40 MG TABLET PO SCH (08:19)
[2020-07-05] MEDS: ATORVASTATIN 40 MG TAB PO SCH (08:19)
[2020-07-05] MEDS: FOLIC ACID-VIT B COMPLEX-VIT C 1 CAP PO SCH (08:19)
[2020-07-05] MEDS: CEPHALEXIN 500 MG CAP PO SCH ×2 (08:19→20:31)
[2020-07-05 11:28] LABS: Glucose,Whole Blood 131 mg/dL (75-99)
[2020-07-05] MEDS: LOSARTAN 25 MG TAB PO SCH (12:27)
--- NOTE | 2020-07-05 12:42 | XR ---
EXAMINATION TYPE: XR chest 1V portable DATE OF EXAM: 07/05/2020 COMPARISON: Chest x-ray 07/04/2020 HISTORY: Fluid overload, abnormal chest x-ray TECHNIQUE: Single frontal view of the chest is obtained. FINDINGS: There is interval improvement in the interstitium. Bibasilar density persists, there is bl unting the costophrenic angles. The heart remains enlarged. Central venous catheter is present. There is no evident pneumothorax. IMPRESSION: There is improvement in patient's volume status. There are basilar effusions and associa arline atelectasis, correlate to exclude pneumonia. Cardiomegaly.
--- NOTE | 2020-07-05 13:55 | P.PN ---
Subjective "This is a pleasant 80-year-old female past medical history significant for COPD, diabetes mellitus, hypertension, chronic kidney disease on hemodialysis, chronic diastolic heart failure, pulmonary hypertension, paroxysmal atrial fibrillation on eliquis and aortic stenosis. She denies prior history of coronary artery disease. She follows in the office with Dr. Coronel. We have been asked to see in consultation for persistent hypertension. she is seen and examined resting comfortably lying flat in bed in no acute distress. She was sent to the hospital as a direct admit from her PCP secondary to persistent hypertension. She was discharged from the hospital 2 days ago.at the time of discharge she was on amiodarone 200 mg daily, amlodipine 5 mg twice a day, Lasix 40 mg daily, hydralazine 100 mg 3 times a day, propanolol 30 mg twice a day, Imdur 60 mg daily and losartan 12.5 mg daily. On the day of discharge her blood pressure was 131/56. On admission to the ER her blood pressure was 207/95 repeat this morning 126/66. She states she had been taking all of her prescribed medications since being discharged. 07/05/2020 Pt seen and examined sitting up in bed during dialysis in no acute distress. She denies chest pain or shortness of breath. Blood pressure last night 97/63, HR 94 this morning was 126/77 heart rate 72 afebrile and maintaining oxygen saturation on 4L nasal cannula. PHYSICAL EXAMINATION CONSTITUTIONAL: No apparent distress. HEENT: Head is normocephalic. Pupils are equal, round. Sclerae anicteric. Mucous membranes of the mouth are moist. No JVD. No carotid bruit. CHEST EXAMINATION: Lungs are clear to auscultation. No chest wall tenderness is noted on palpation or with deep breathing. HEART EXAMINATION: Regular rate and rhythm. S1, S2 heard. Systolic ejection murmur at the base, no gallops or rub. EXTREMITIES: 2+ peripheral pulses, no lower extremity edema and no calf tenderness. ASSESSMENT Hypertension Diabetes mellitus End stage renal disease on hemodialysis Chronic diastolic heart failure Aortic stenosis Paroxysmal atrial fibrillation on eliquis, currently in SR PLAN -No changes today. Continue current medication regimen. -We will sign off at this time. Please reach out for further questions or concerns. Patient will follow up with Dr. Coronel outpatient. Nurse Practitioner note has been reviewed, I agree with a documented findings and plan of care. Patient was seen and examined. Objective - Vital Signs Vital signs: Vital Signs Temp 97.5 F L 07/05/20 07:30 Pulse 64 07/05/20 08:04 Resp 18 07/05/20 07:30 BP 170/82 07/05/20 07:30 Pulse Ox 91 L 07/05/20 07:54 Intake & Output 07/04/20 07/05/20 07/05/20 18:59 06:59 18:59 Intake Total 300 Balance 300 Weight 64.5 kg Intake: Oral 300 Other: Voiding Method Toilet # Voids 3 - Labs CBC & Chem 7: 07/04/20 06:36 07/04/20 06:36 Labs: Abnormal Lab Results - Last 24 Hours (Table) 07/04/20 07/04/20 07/05/20 Range/Units 16:44 20:46 06:54 POC Glucose (mg/dL) 187 H 150 H 157 H (75-99) mg/dL 07/05/20 Range/Units 11:26 POC Glucose (mg/dL) 131 H (75-99) mg/dL
[2020-07-05] MEDS: amLODIPine 5 MG TAB PO SCH (14:11)
[2020-07-05] MEDS: AMIODARONE 200 MG TAB PO SCH (14:11)
[2020-07-05] MEDS: APIXABAN 2.5 MG TABLET PO SCH ×2 (14:11→20:31)
[2020-07-05] MEDS: PROPRANOLOL 10 MG TAB PO SCH ×2 (14:12→20:32)
--- NOTE | 2020-07-05 15:48 | P.PN ---
Subjective Progress Note Date: 07/05/20 Principal diagnosis: bilateral pleural effusion left more than the right likely related to diastolic heart failure primary etiologies cannot be excluded Paroxysmal atrial fibrillation on diet control anticoagulants Hypertensive urgency Chronic renal failure on hemodialysis stage V Pulmonary hypertension of moderate to severe category Sleep disorder breathing and sleep apnea 07/05/2020, patient seen eval examined during the rounds labs reviewed medications reviewed, specific complaints besides blood pressure are present, denies any chest pain or shortness of breath, last chest x-ray performed today shows improvement in interstitial Petrin with bilateral blunting of CP angle likely due to pleural effusion, some atelectasis present as well, patient remains afebrile, on 4 L oxygen saturating well patient is a 80-year-old female with prior medical history significant for COPD diabetes hypertension hypertensive cardiovascular disease and chronic kidney disease has been on hemodialysis patient has component of the proximal atrial fibrillation and has been on direct oral anticoagulation and also on aortic stenosis came into the hospital with ongoing shortness of breath and also uncontrolled hypertension, in the ER she was noted to have blood pressure 210/95, patient is well-known to me from prior medical history, she has a large left-sided pleural effusion and a small to moderate right-sided pleural effusion she insists on getting dialysis done refused thoracentesis, further workup and evaluation revealed ejection fraction of the 50-55% and moderate aortic stenosis with the mean gradient of 30 along with MR and TR significant pulmonary hypertension with RVSP of 71, patient has intermittent snoring as well she needs to be evaluated for sleep disorder breathing and sleep apnea, however patient is pretty much worked up with her uncontrolled hypertension and refused to undergo thoracentesis and sleep study at this time but may consider down the road in the future these problems do not resolve Objective - Vital Signs Vital signs: Vital Signs Temp 98.5 F 07/05/20 14:00 Pulse 63 07/05/20 14:00 Resp 18 07/05/20 14:00 BP 166/67 07/05/20 14:00 Pulse Ox 97 07/05/20 14:00 Intake & Output 07/04/20 07/05/20 07/05/20 18:59 06:59 18:59 Intake Total 300 Output Total 3200 Balance 300 -3200 Weight 64.5 kg Intake: Oral 300 Output: Hemodialysis 3200 Other: Voiding Method Toilet # Voids 3 - Exam - Constitutional General appearance: average body habitus, cooperative, disheveled, mild distress - EENT Eyes: PERRLA Ears: bilateral: normal - Neck Neck: normal ROM Carotids: bilateral: upstroke normal Thyroid: bilateral: normal size - Respiratory Respiratory: bilateral: diminished - Cardiovascular Rhythm: regular Heart sounds: normal: S1, S2 - Gastrointestinal General gastrointestinal: normal bowel sounds, soft - Neurologic Neurologic: CNII-XII intact - Musculoskeletal Musculoskeletal: gait normal, generalized weakness - Psychiatric Psychiatric: A&O x's 3, appropriate affect, intact judgment & insight - Labs CBC & Chem 7: 07/04/20 06:36 07/04/20 06:36 Labs: Abnormal Lab Results - Last 24 Hours (Table) 07/04/20 07/04/20 07/05/20 Range/Units 16:44 20:46 06:54 POC Glucose (mg/dL) 187 H 150 H 157 H (75-99) mg/dL 07/05/20 Range/Units 11:26 POC Glucose (mg/dL) 131 H (75-99) mg/dL Assessment and Plan Assessment: bilateral pleural effusion left more than the right likely related to diastolic heart failure primary etiologies cannot be excluded Paroxysmal atrial fibrillation on diet control anticoagulants Hypertensive urgency Chronic renal failure on hemodialysis stage V Pulmonary hypertension of moderate to severe category Sleep disorder breathing and sleep apnea Plan: continue current medications with better control of the blood pressure supplemental oxygen deep breathing exercises incentive spirometry Hemodialysis plan continue home medications patient continued to refuse thoracentesis, will observe closely today follow-up chest x-ray reviewed patient continued to do well in terms of volume status Sleep study as outpatient Time with Patient: Greater than 30
[2020-07-05 16:52] LABS: Glucose,Whole Blood 209 mg/dL (75-99)
--- NOTE | 2020-07-05 17:13 | PN ---
PROGRESS NOTE Patient is seen for followup for end-stage renal disease. She is seen on hemodialysis today. Patient was quite short of breath earlier with blood pressures about 170 to 160 mmHg. Oxygen saturations had dropped down to 91%. She was started on dialysis and she has been much more comfortable and now sleeping but arousable. Blood pressure had also improved to systolic of 150s during her treatment. Goal ultrafiltration for about 3 L as tolerated. PHYSICAL EXAMINATION: On examination today, patient is comfortable. No significant edema noted in the lower extremities. She is tolerating her dialysis as well. 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 She is moving all 4 extremities. LABS: Labs are not available from today. From yesterday, potassium was 5.0 and serum creatinine 2.3. ASSESSMENT: 1. End-stage renal disease, on hemodialysis on a Wednesday, Wednesday, Wednesday schedule. 2. Volume overload, currently improving. 3. Hypertension, partly volume-sensitive. Patient was not able to tolerate the higher dose of hydralazine and therefore it was decreased. In the meantime, Cozaar was increased. I expect further improvement in her blood pressure once her volume status has improved. We will plan to dialyze her again tomorrow, mostly for volume overload. 4. Anemia of chronic disease. 5. Chronic kidney disease mineral bone disorder. PLAN: Hemodialysis today. Goal UF of about 3 L as tolerated and repeat hemodialysis again tomorrow for about 2 hours with 1-2 L as tolerated. Continue current antihypertensive medications. Repeat chest x-ray post dialysis. MMODL / IJN: [id number] /
[2020-07-05 20:27] LABS: Glucose,Whole Blood 189 mg/dL (75-99)
--- NOTE | 2020-07-05 21:20 | US ---
EXAMINATION TYPE: US chest DATE OF EXAM: 07/05/2020 COMPARISON: NONE CLINICAL HISTORY: pre thoracentesis. TECHNIQUE: Targeted ultrasound of the posterior lower bilateral hemithoraces EXAM MEASUREMENTS: Right Pleural Effusion pocket size: 1.9 cm Right skin surface to fluid distance: 2.0 cm Left Pleural Effusion pocket size: 2.2 cm Left skin surface to fluid distance: 2.1 cm Right side not marked for possible thoracentesis outside the dept. Left side not marked for possible thoracentesis outside the dept. Pulmonologists are able to review the images in the patient?s EMR. IMPRESSIONS: Bilateral pleural effusions are demonstrated that measure up to 2 cm in thickness.
--- NOTE | 2020-07-05 21:54 | PN ---
PROGRESS NOTE This is an 80-year-old white female who has worsening breathing on 4 L of oxygen currently. States she cannot breathe with any exertion. She has a large amount of pleural effusion, for which she has agreed to undergo thoracentesis with Dr. Duenas. She is still getting dialysis per Dr. Fontana and Dr. Aguiar. Blood pressure acceleration is being better controlled. Blood pressure is still 170s to 160s over 60 to 70, temperature 97 to 98, respiratory rate is 18 to 20, pulse is 61 to 63. ASSESSMENT: 1. Fluid overload. 2. Pleural effusions. 3. Hypertension acceleration. Continue current treatment. Thoracentesis will be needed. Hypertension acceleration will be treated. Dialysis will be continued. Please see further orders. Will order an ultrasound of the chest for thoracentesis. MMODL / IJN: [id number] /
[2020-07-06] MEDS: CIPROFLOXACIN 0.3% OPHTH SOLN 5 ML BTL RIGHT EYE SCH ×6 (02:02→20:50)
[2020-07-06] MEDS: LEVOTHYROXINE 100 MCG TAB PO SCH (05:27)
[2020-07-06] MEDS: IPRATROPIUM-ALBUTEROL 3 ML NEB INHALATION PRN ×2 (05:49→11:48)
[2020-07-06 06:24] LABS: Anisocytosis Slight; Basophils % (A) 1 %; Eosinophils # (A) 0.2 k/uL (0-0.7); Eosinophils % (A) 5 %; HCT 30.3 % (34.0-46.0); Lymphocytes # (A) 0.7 k/uL (1.0-4.8); Lymphocytes % (A) 14 %; MCH 31.5 pg (25.0-35.0); MCHC 33.1 g/dL (31.0-37.0); MCV 95.1 fL (80.0-100.0); Mean Platelet Volume 7.5; Monocytes # (A) 0.4 k/uL (0-1.0); Monocytes % (A) 7 %; Neutrophils # (A) 3.8 k/uL (1.3-7.7); Neutrophils % (A) 72 %; Platelet Count 269 k/uL (150-450); RBC 3.18 m/uL (3.80-5.40); WBC 5.3 k/uL (3.8-10.6)
[2020-07-06 06:33] LABS: ALT 137 U/L (4-34); AST 75 U/L (14-36); African American GFR (CKD) 21 (>60 ml/min/1.73 sqM); Albumin 3.1 g/dL (3.5-5.0); Albumin/Globulin Ratio 1.1; Alkaline Phosphatase 88 U/L (38-126); Anion Gap 6 mmol/L; Blood Urea Nitrogen 20 mg/dL (7-17); Calcium 8.7 mg/dL (8.4-10.2); Carbon Dioxide 26 mmol/L (22-30); Chloride 100 mmol/L (98-107); Globulin 2.8 g/dL; Glucose 144 mg/dL (74-99); Non-African American GFR(CKD) 18 (>60 ml/min/1.73 sqM); Potassium 4.4 mmol/L (3.5-5.1); Sodium 132 mmol/L (137-145); Total Bilirubin 0.7 mg/dL (0.2-1.3); Total Protein 5.9 g/dL (6.3-8.2)
[2020-07-06 07:15] LABS: Glucose,Whole Blood 144 mg/dL (75-99)
--- NOTE | 2020-07-06 08:19 | P.PN ---
Subjective Progress Note Date: 07/06/20 Principal diagnosis: This is a 80-year-old female with ESRD on dialysis Wednesday, came in with shortness of breath and has been dialyzed yesterday. She remained short of breath Currently on nasal cannula oxygen She complains of insomnia. No chest pain no fever chills. She is scheduled to have dialysis today. She is known with COPD, diabetes hypertension pulmonary hypertension atrial fibrillation and aortic stenosis. Objective - Vital Signs Vital signs: Vital Signs Temp 98.1 F 07/06/20 07:47 Pulse 63 07/06/20 07:47 Resp 16 07/06/20 07:47 BP 169/72 07/06/20 07:47 Pulse Ox 93 L 07/06/20 07:47 Intake & Output 07/05/20 07/06/20 07/06/20 18:59 06:59 18:59 Output Total 3200 Balance -3200 Weight 62.1 kg Output: Urine 0 Hemodialysis 3200 Other: # Voids 1 On examination awake alert oriented comfortable On nasal cannula oxygen HEENT no JVP neck is supple no facial asymmetry Lungs are significant for an occasional coarse crackle at bases good air entry bilaterally Heart sounds are remarkable for grade 2 systolic ejection murmur at the aortic area with diminished carotid upstrokes suggestive of aortic stenosis She'll permacath on the right Abdomen soft nontender Extremity exam was trace edema Neurologically awake alert oriented. - Labs CBC & Chem 7: 07/06/20 05:29 07/06/20 05:29 Labs: Abnormal Lab Results - Last 24 Hours (Table) 07/05/20 07/05/20 07/05/20 Range/Units 11:26 16:49 20:23 RBC (3.80-5.40) m/uL Hgb (11.4-16.0) gm/dL Hct (34.0-46.0) % RDW (11.5-15.5) % Lymphocytes # (1.0-4.8) k/uL Sodium (137-145) mmol/L BUN (7-17) mg/dL Creatinine (0.52-1.04) mg/dL Glucose (74-99) mg/dL POC Glucose (mg/dL) 131 H 209 H 189 H (75-99) mg/dL AST (14-36) U/L ALT (4-34) U/L Total Protein (6.3-8.2) g/dL Albumin (3.5-5.0) g/dL 07/06/20 07/06/20 07/06/20 Range/Units 05:29 05:29 07:13 RBC 3.18 L (3.80-5.40) m/uL Hgb 10.0 L (11.4-16.0) gm/dL Hct 30.3 L (34.0-46.0) % RDW 16.0 H (11.5-15.5) % Lymphocytes # 0.7 L (1.0-4.8) k/uL Sodium 132 L (137-145) mmol/L BUN 20 H (7-17) mg/dL Creatinine 2.46 H (0.52-1.04) mg/dL Glucose 144 H (74-99) mg/dL POC Glucose (mg/dL) 144 H (75-99) mg/dL AST 75 H (14-36) U/L ALT 137 H (4-34) U/L Total Protein 5.9 L (6.3-8.2) g/dL Albumin 3.1 L (3.5-5.0) g/dL Assessment and Plan Assessment: Impression 1. ESRD on dialysis Wednesday with a permacath on the right side 2. Admitted with shortness of breath and bilateral pleural effusions. 3. History of atrial flutter ablation 4. Aortic stenosis 5. Diabetes 6. COPD. 7. Anemia of chronic kidney disease hemoglobin stable at target 8. Rule out iron deficiency Recommendation 1. Check iron and TIBC 2. Maintain darbepoetin 3. To be dialyzed today as per orders written yesterday. 4. For thoracentesis today supposedly We will continue to follow thank you
[2020-07-06] MEDS: INSULIN ASPART (NovoLOG) 100 UNIT/ML VIAL SQ SCH ×4 (08:33→20:51)
[2020-07-06] MEDS: PANTOPRAZOLE 40 MG TABLET PO SCH (08:33)
[2020-07-06] MEDS: APIXABAN 2.5 MG TABLET PO SCH ×2 (08:34→20:46)
[2020-07-06] MEDS: CEPHALEXIN 500 MG CAP PO SCH ×2 (08:34→20:50)
[2020-07-06] MEDS: ATORVASTATIN 40 MG TAB PO SCH (08:35)
[2020-07-06] MEDS: AMIODARONE 200 MG TAB PO SCH ×2 (08:37→10:31)
[2020-07-06] MEDS: hydrALAZINE HCL 50 MG TAB PO SCH ×4 (08:37→20:51)
[2020-07-06] MEDS: amLODIPine 5 MG TAB PO SCH ×2 (08:37→10:31)
[2020-07-06] MEDS: ISOSORBIDE MONONITRATE ER 60 MG TAB.ER.24H PO SCH ×2 (08:44→10:31)
[2020-07-06] MEDS: PROPRANOLOL 10 MG TAB PO SCH ×3 (08:45→20:51)
[2020-07-06] MEDS: FOLIC ACID-VIT B COMPLEX-VIT C 1 CAP PO SCH ×2 (08:45→10:31)
[2020-07-06] MEDS: LOSARTAN 25 MG TAB PO SCH ×2 (08:45→10:31)
[2020-07-06 11:41] LABS: Glucose,Whole Blood 218 mg/dL (75-99)
--- NOTE | 2020-07-06 11:54 | PN ---
PROGRESS NOTE 80-year-old white female with hypertension acceleration, cephalopathy, admitted. She had a large amount of edema, pleural effusion. She does not want to get it tapped. We had to start her on home oxygen. She will be up to 4 L. She does not agree to a thoracentesis. She will have to go home on current oxygen. Discussed this with the family. History of COPD, diabetes, hypertension, atrial fibrillation, CHF, short of breath. She was ambulating to the bathroom. Blood pressure 169/72, O2 saturation 93, respiratory 16-18, pulse 63, temp 98.1. She is alert, cooperative, on 4 L oxygen, 93 at rest. Shortness of breath up to the bathroom. Heart rate 2/6 systolic murmur. PermCath in the right side of the chest. Abdomen is soft. Hemoglobin is up to 10. BUN is 20, creatinine 2.46. ASSESSMENT: 1. End-stage renal disease. 2. Shortness of breath. 3. Bilateral pleural effusion. 4. History of atrial flutter. 5. Aortic stenosis. 6. Diabetes. 7. Chronic obstructive pulmonary disease. 8. Anemia, chronic disease. 9. Rule out iron deficiency. Maintain carboplatin, possibly for dialysis and thoracentesis. Otherwise, possibly will have to discharge her home to follow up as an outpatient. PROGNOSIS: Guarded. MMODL / IJN: [id number] /
[2020-07-06 16:55] LABS: Glucose,Whole Blood 152 mg/dL (75-99)
[2020-07-06 20:22] LABS: Glucose,Whole Blood 156 mg/dL (75-99)
[2020-07-07] MEDS: CIPROFLOXACIN 0.3% OPHTH SOLN 5 ML BTL RIGHT EYE SCH ×6 (00:50→20:36)
[2020-07-07] MEDS: ACETAMINOPHEN TAB 325 MG TAB PO PRN ×2 (01:00→20:38)
[2020-07-07] MEDS: LEVOTHYROXINE 100 MCG TAB PO SCH (05:36)
[2020-07-07 07:19] LABS: Glucose,Whole Blood 124 mg/dL (75-99)
[2020-07-07] MEDS: PANTOPRAZOLE 40 MG TABLET PO SCH (07:34)
[2020-07-07] MEDS: CEPHALEXIN 500 MG CAP PO SCH ×2 (07:35→20:36)
[2020-07-07] MEDS: LOSARTAN 25 MG TAB PO SCH (07:35)
[2020-07-07] MEDS: AMIODARONE 200 MG TAB PO SCH (07:35)
[2020-07-07] MEDS: hydrALAZINE HCL 50 MG TAB PO SCH ×3 (07:35→20:36)
[2020-07-07] MEDS: PROPRANOLOL 10 MG TAB PO SCH ×2 (07:35→20:36)
[2020-07-07] MEDS: APIXABAN 2.5 MG TABLET PO SCH (07:35)
[2020-07-07] MEDS: ISOSORBIDE MONONITRATE ER 60 MG TAB.ER.24H PO SCH (07:35)
[2020-07-07] MEDS: amLODIPine 5 MG TAB PO SCH (07:35)
[2020-07-07] MEDS: ATORVASTATIN 40 MG TAB PO SCH (07:36)
[2020-07-07] MEDS: FOLIC ACID-VIT B COMPLEX-VIT C 1 CAP PO SCH (07:36)
[2020-07-07] MEDS: INSULIN ASPART (NovoLOG) 100 UNIT/ML VIAL SQ SCH ×4 (07:45→20:36)
--- NOTE | 2020-07-07 09:10 | US ---
EXAMINATION TYPE: US chest DATE OF EXAM: 07/07/2020 COMPARISON: US 2020 CLINICAL HISTORY: bilateral pleural effusion Exam done portable. TECHNIQUE: Targeted ultrasound of the posterior lower bilateral hemithoraces EXAM MEASUREMENTS: Right Pleural Effusion pocket size: 11.9 cm Right skin surface to fluid distance: 2.4 cm Lung seen within anterior portion of fluid pocket at a depth of 2.5cm Left Pleural Effusion pocket size: 10.1 cm Left skin surface to fluid distance: 2.4 cm Lung seen within anterior portion of fluid pocket at a depth of 2.4cm Right side marked for possible thoracentesis outside the dept. Left side marked for possible thoracentesis outside the dept. Pulmonologists are able to review the images in the patient?s EMR. IMPRESSIONS: Bilateral pleural effusions as described above
[2020-07-07 11:43] LABS: Glucose,Whole Blood 231 mg/dL (75-99)
--- NOTE | 2020-07-07 12:13 | P.PN ---
Subjective Progress Note Date: 07/07/20 Principal diagnosis: This is a 80-year-old female with ESRD on dialysis Wednesday, came in with shortness of breath and has been dialyzed on her scheduled day on . She remained short of breath, has pleural effusion that needs to be tapped and is being scheduled. Currently on nasal cannula oxygen She complains of insomnia. No chest pain no fever chills. She does complain of shortness of breath. Also does not like the food here and appetite is somewhat less than normal. No nausea vomiting diarrhea She is known with COPD, diabetes hypertension pulmonary hypertension atrial fibrillation and aortic stenosis. Objective - Vital Signs Vital signs: Vital Signs Temp 98.2 F 07/07/20 08:00 Pulse 60 07/07/20 08:00 Resp 19 07/07/20 08:00 BP 161/71 07/07/20 08:00 Pulse Ox 94 L 07/07/20 08:00 Intake & Output 07/06/20 07/07/20 07/07/20 17:59 06:59 18:59 Intake Total Balance Weight Intake: Oral Other: Voiding Method Toilet # Voids 1 # Bowel Movements 1 Plan she is on nasal cannula oxygen comfortable. HEENT exam no JVP neck is supple no facial asymmetry Lungs are clear to auscultation fair air entry bilaterally Heart sounds unremarkable for any murmur rub gallop Abdomen soft nontender Extremity exam was no edema Neurologically awake alert oriented - Labs CBC & Chem 7: 07/06/20 05:29 07/06/20 05:29 Labs: Abnormal Lab Results - Last 24 Hours (Table) 07/06/20 07/06/20 07/06/20 Range/Units 11:40 16:51 20:20 POC Glucose (mg/dL) 218 H 152 H 156 H (75-99) mg/dL 07/07/20 07/07/20 Range/Units 07:19 11:41 POC Glucose (mg/dL) 124 H 231 H (75-99) mg/dL Assessment and Plan Assessment: Impression 1. ESRD on dialysis Wednesday with a permacath on the right side 2. Admitted with shortness of breath and bilateral pleural effusions. 3. History of atrial flutter ablation 4. Aortic stenosis 5. Diabetes 6. COPD. 7. Anemia of chronic kidney disease hemoglobin stable at target hemoglobin is 10 8. Rule out iron deficiency Recommendation 1. Check iron and TIBC 2. Maintain darbepoetin 3. To be dialyzed tomorrow at 2 L ultrafiltration oh 3-1/2 hours 4. For thoracentesis and never scheduled We will continue to follow thank you
--- NOTE | 2020-07-07 14:21 | PN ---
PROGRESS NOTE 80-year-old white female who is suppose to get some thoracentesis due to 15 cm of fluid on her bilateral chest, otherwise large perfusion for which it is making it difficult for her to breathe or walk and ambulate in the room. She is scheduled to get this done. We are going to stop her Eliquis, just put her on subcu heparin until the procedure is done. Psych: She is very anxious, nervous, very upset with everything that has been happening and the fact that she cannot breathe. She has been unhappy with nurse aides and nurses and the kidney doctor yelled at her today. She says she is very upset about that. Cardiovascular S1-S2. Lungs decreased breath sounds at the bases. Hematology negative Homans' ASSESSMENT: 1. End-stage renal disease. 2. Chronic obstructive pulmonary disease. 3. Diastolic heart failure. 4. Large perfusion, unclear etiology. Pleural taps with thoracentesis will be done in next couple days. Eliquis is on hold. Subcu heparin until procedure. Please see further orders and then she can be discharged home for dialysis as an outpatient and oxygen as an outpatient. MMODL / IJN: [id number] /
[2020-07-07 16:39] LABS: Glucose,Whole Blood 180 mg/dL (75-99)
[2020-07-07] MEDS: HEPARIN SODIUM,PORCINE 5,000 UNIT/ML 1 ML VIAL SQ SCH (16:51)
[2020-07-07 20:09] LABS: Glucose,Whole Blood 215 mg/dL (75-99)
[2020-07-08] MEDS: CIPROFLOXACIN 0.3% OPHTH SOLN 5 ML BTL RIGHT EYE SCH ×6 (00:01→20:59)
[2020-07-08] MEDS: HEPARIN SODIUM,PORCINE 5,000 UNIT/ML 1 ML VIAL SQ SCH ×3 (00:02→16:59)
[2020-07-08] MEDS: LEVOTHYROXINE 100 MCG TAB PO SCH (05:59)
[2020-07-08 07:10] LABS: Glucose,Whole Blood 163 mg/dL (75-99)
[2020-07-08] MEDS: CEPHALEXIN 500 MG CAP PO SCH ×2 (08:27→20:55)
[2020-07-08] MEDS: PANTOPRAZOLE 40 MG TABLET PO SCH (08:28)
[2020-07-08] MEDS: INSULIN ASPART (NovoLOG) 100 UNIT/ML VIAL SQ SCH ×4 (08:32→20:58)
[2020-07-08] MEDS: FOLIC ACID-VIT B COMPLEX-VIT C 1 CAP PO SCH (08:33)
[2020-07-08] MEDS: ATORVASTATIN 40 MG TAB PO SCH (08:33)
[2020-07-08] MEDS: AMIODARONE 200 MG TAB PO SCH (08:33)
[2020-07-08] MEDS: amLODIPine 5 MG TAB PO SCH ×2 (08:33→20:55)
[2020-07-08] MEDS: hydrALAZINE HCL 50 MG TAB PO SCH (08:33)
[2020-07-08] MEDS: PROPRANOLOL 10 MG TAB PO SCH ×2 (08:34→20:58)
[2020-07-08] MEDS: ISOSORBIDE MONONITRATE ER 60 MG TAB.ER.24H PO SCH (08:34)
[2020-07-08] MEDS: LOSARTAN 25 MG TAB PO SCH (08:34)
[2020-07-08 09:47] LABS: Basophils # (A) 0.05 X 10*3/uL (0.00-0.10); Basophils % (A) 0.9 %; Eosinophils # (A) 0.33 X 10*3/uL (0.04-0.35); Eosinophils % (A) 5.7 %; HCT 28.3 % (37.2-46.3); HGB 9.2 g/dL (12.0-15.0); Lymphocytes # (A) 0.72 X 10*3/uL (0.90-5.00); Lymphocytes % (A) 12.3 %; MCH 30.9 pg (27.0-32.0); MCHC 32.5 g/dL (32.0-37.0); Mean Platelet Volume 10.2 fL (9.5-12.2); Monocytes # (A) 0.49 X 10*3/uL (0.20-1.00); Monocytes % (A) 8.4 %; Platelet Count 276 X 10*3/uL (140-440); RBC 2.98 X 10*6/uL (4.10-5.20); RDW 15.5 % (11.5-14.5); WBC 5.83 X 10*3/uL (4.50-10.00)
--- NOTE | 2020-07-08 10:57 | P.PN ---
Subjective Progress Note Date: 07/08/20 Principal diagnosis: bilateral pleural effusion left more than the right likely related to diastolic heart failure primary etiologies cannot be excluded Paroxysmal atrial fibrillation on diet control anticoagulants Hypertensive urgency Chronic renal failure on hemodialysis stage V Pulmonary hypertension of moderate to severe category Sleep disorder breathing and sleep apnea 07/08/2020, patient seen eval examined during the rounds labs reviewed medications reviewed care plan discussed, continued to have severe shortness of breath unable to titrate oxygen down from 4 L, patient has been short of breath have difficulty in sleeping at nighttime supine have to be propped up with multiple pillows, now patient is agreeable for thoracentesis, I have reviewed ultrasound images about 11 cm of fluid is present in both side much larger pocket appears to be on right side, discussed with RN as well patient explained about the procedure complication and risk she is agreeable and wants to proceed with that, currently patient is undergoing hemodialysis will plan after the rut lysis 07/05/2020, patient seen eval examined during the rounds labs reviewed medications reviewed, specific complaints besides blood pressure are present, denies any chest pain or shortness of breath, last chest x-ray performed today shows improvement in interstitial Petrin with bilateral blunting of CP angle likely due to pleural effusion, some atelectasis present as well, patient remains afebrile, on 4 L oxygen saturating well patient is a 80-year-old female with prior medical history significant for COPD diabetes hypertension hypertensive cardiovascular disease and chronic kidney disease has been on hemodialysis patient has component of the proximal atrial fibrillation and has been on direct oral anticoagulation and also on aortic stenosis came into the hospital with ongoing shortness of breath and also uncontrolled hypertension, in the ER she was noted to have blood pressure 210/95 , patient is well-known to me from prior medical history, she has a large left- sided pleural effusion and a small to moderate right-sided pleural effusion she insists on getting dialysis done refused thoracentesis, further workup and evaluation revealed ejection fraction of the 50-55% and moderate aortic stenosis with the mean gradient of 30 along with MR and TR significant pulmonary hypertension with RVSP of 71, patient has intermittent snoring as well she needs to be evaluated for sleep disorder breathing and sleep apnea, however patient is pretty much worked up with her uncontrolled hypertension and refused to undergo thoracentesis and sleep study at this time but may consider down the road in the future these problems do not resolve Objective - Vital Signs Vital signs: Vital Signs Temp 97.6 F 07/08/20 07:33 Pulse 60 07/08/20 07:33 Resp 18 07/08/20 07:33 BP 189/81 07/08/20 07:33 Pulse Ox 92 L 07/08/20 07:33 Intake & Output 07/07/20 07/08/20 07/08/20 18:59 06:59 18:59 Weight 64.5 kg Other: Voiding Method Toilet # Voids 1 # Bowel Movements 1 - Exam - Constitutional General appearance: average body habitus, cooperative, disheveled, mild distress - EENT Eyes: PERRLA Ears: bilateral: normal - Neck Neck: normal ROM Carotids: bilateral: upstroke normal Thyroid: bilateral: normal size - Respiratory Respiratory: bilateral: diminished - Cardiovascular Rhythm: regular Heart sounds: normal: S1, S2 - Gastrointestinal General gastrointestinal: normal bowel sounds, soft - Neurologic Neurologic: CNII-XII intact - Musculoskeletal Musculoskeletal: gait normal, generalized weakness - Psychiatric Psychiatric: A&O x's 3, appropriate affect, intact judgment & insight - Labs CBC & Chem 7: 07/08/20 05:38 07/06/20 05:29 Labs: Abnormal Lab Results - Last 24 Hours (Table) 07/07/20 07/07/20 07/07/20 Range/Units 11:41 16:38 20:06 RBC (4.10-5.20) X 10*6/uL Hgb (12.0-15.0) g/dL Hct (37.2-46.3) % RDW (11.5-14.5) % Lymphocytes # (0.90-5.00) X 10*3/uL POC Glucose (mg/dL) 231 H 180 H 215 H (75-99) mg/dL 07/08/20 07/08/20 Range/Units 05:38 06:53 RBC 2.98 L (4.10-5.20) X 10*6/uL Hgb 9.2 L (12.0-15.0) g/dL Hct 28.3 L (37.2-46.3) % RDW 15.5 H (11.5-14.5) % Lymphocytes # 0.72 L (0.90-5.00) X 10*3/uL POC Glucose (mg/dL) 163 H (75-99) mg/dL Assessment and Plan Assessment: bilateral pleural effusion left more than the right likely related to diastolic heart failure , end-stage renal disease, other etiologies like neoplasm cannot be excluded Paroxysmal atrial fibrillation on diet control anticoagulants, currently on hold Hypertensive urgency Chronic renal failure on hemodialysis stage V Pulmonary hypertension of moderate to severe category Sleep disorder breathing and sleep apnea Plan: continue current medications with better control of the blood pressure supplemental oxygen deep breathing exercises incentive spirometry Hemodialysis plan continue home medications patient now agreeable for thoracentesis will do right side thoracentesis today Procedure risk complication and alternative have been explained to the patient she would like to proceed Sleep study as outpatient
[2020-07-08 11:18] LABS: Glucose,Whole Blood 120 mg/dL (75-99)
[2020-07-08 11:24] LABS: African American GFR (CKD) 19.4 (60.0-200.0); Albumin 3.4 g/dL (3.80-4.90); Albumin/Globulin Ratio 1.62 (1.60-3.17); Anion Gap 11.1 mmol/L (4.00-12.00); BUN/Creat Ratio 11.15 Ratio (12.00-20.00); Calcium 8.7 mg/dL (8.7-10.3); Carbon Dioxide 22.9 mmol/L (21.6-31.8); Globulin 2.1 g/dL (1.6-3.3); Non-African American GFR(CKD) 16.7 (60.0-200.0); Potassium 4.6 mmol/L (3.5-5.5); Total Bilirubin 0.6 mg/dL (0.3-1.2); Total Protein 5.5 g/dL (6.2-8.2)
[2020-07-08] MEDS ORDERED: LIDOCAINE 1% INJ 10MG/ML (20 ML MDV) ONE (12:48)
[2020-07-08 13:17] VITALS: BMI 25.9
--- NOTE | 2020-07-08 13:32 | P.PN ---
Subjective Patient is seen in follow-up for end-stage renal disease. She is maintained on hemodialysis on Wednesday schedule. Tolerated dialysis well this morning. Scheduled for thoracentesis today. Blood pressure on the higher side. Denies chest pain or shortness of breath at this time. Vital signs are stable. Blood pressure on the higher side. General: The patient appeared well nourished and normally developed. HEENT: Head exam is unremarkable. Neck is without jugular venous distension. LUNGS: Breath sounds decreased. HEART: Rate and Rhythm are regular. ABDOMEN: Soft, nontender. EXTREMITITES: Trace edema. Objective - Vital Signs Vital signs: Vital Signs Temp 97.6 F 07/08/20 07:33 Pulse 60 07/08/20 07:33 Resp 18 07/08/20 07:33 BP 189/81 07/08/20 07:33 Pulse Ox 92 L 07/08/20 07:33 Intake & Output 07/07/20 07/08/20 07/08/20 18:59 06:59 18:59 Weight 64.5 kg 64.5 kg Other: Voiding Method Toilet Toilet # Voids 1 # Bowel Movements 1 - Labs CBC & Chem 7: 07/08/20 05:38 07/08/20 05:38 Labs: Abnormal Lab Results - Last 24 Hours (Table) 07/07/20 07/07/20 07/08/20 Range/Units 16:38 20:06 05:38 RBC 2.98 L (4.10-5.20) X 10*6/uL Hgb 9.2 L (12.0-15.0) g/dL Hct 28.3 L (37.2-46.3) % RDW 15.5 H (11.5-14.5) % Lymphocytes # 0.72 L (0.90-5.00) X 10*3/uL BUN (9.0-27.0) mg/dL Creatinine (0.6-1.5) mg/dL Est GFR (CKD-EPI)AfAm (60.0-200.0) Est GFR (CKD-EPI)NonAf (60.0-200.0) BUN/Creatinine Ratio (12.00-20.00) Ratio Glucose (70-110) mg/dL POC Glucose (mg/dL) 180 H 215 H (75-99) mg/dL AST (13-35) U/L ALT (8-44) U/L Total Protein (6.2-8.2) g/dL Albumin (3.80-4.90) g/dL 07/08/20 07/08/20 07/08/20 Range/Units 05:38 06:53 11:12 RBC (4.10-5.20) X 10*6/uL Hgb (12.0-15.0) g/dL Hct (37.2-46.3) % RDW (11.5-14.5) % Lymphocytes # (0.90-5.00) X 10*3/uL BUN 29.0 H (9.0-27.0) mg/dL Creatinine 2.6 H (0.6-1.5) mg/dL Est GFR (CKD-EPI)AfAm 19.4 L (60.0-200.0) Est GFR (CKD-EPI)NonAf 16.7 L (60.0-200.0) BUN/Creatinine Ratio 11.15 L (12.00-20.00) Ratio Glucose 134 H (70-110) mg/dL POC Glucose (mg/dL) 163 H 120 H (75-99) mg/dL AST 38 H (13-35) U/L ALT 90 H (8-44) U/L Total Protein 5.5 L (6.2-8.2) g/dL Albumin 3.40 L (3.80-4.90) g/dL Assessment and Plan Plan: Assessment: 1. End-stage renal disease maintained on hemodialysis on Wednesday y schedule. 2. Pleural effusions. Scheduled for thoracentesis today. 3. Hypertension with chronic kidney disease. 4. Anemia of chronic kidney disease. Maintained on Aranesp. 5. Diabetes mellitus. Plan: Next hemodialysis on Wednesday. Thoracentesis today. Case discussed with the patient and her daughter. They both feel that she does not tolerate hydralazine well. I will decrease dose of hydralazine to 25 mg twice daily. Increase amlodipine to 5 mg twice daily. To be held for systolic blood pressure less than 1:30. Maintain losartan. Continue to monitor.
--- NOTE | 2020-07-08 16:02 | P.PCN ---
Date of Procedure: 07/08/20 Preoperative Diagnosis: bilateral pleural effusion, chronic renal failure, uncontrolled hypertension, acute on chronic hypoxic respiratory failure Postoperative Diagnosis: as above Anesthesia: local Surgeon: Jass Duenas Estimated Blood Loss (ml): 0 Condition: stable Disposition: floor Indications for Procedure: As above Operative Findings: as below Description of Procedure: patient prepared and draped in a usual fashion, ultrasound was utilized to locate the maximum depth of the fluid, 1% lidocaine were used at eighth intercostal space mid scapular line, narrow gauge 24 were used to get access the pleural space while giving anesthesia, pleural cavity was approached clear fluid was aspirated followed by giving her remainder of local anesthetic, a stab incision of 1/8 of an inch performed through the incision catheter in needle was placed needle was withdrawn catheter left in position about 950 mL of dark yellow fluid aspirated patient tolerated procedure well no complication noted fluid is being sent for Gram stain and culture cytology cell count and differential and biochemistry chest x-rays pending
--- NOTE | 2020-07-08 16:29 | XR ---
EXAMINATION TYPE: XR chest 1V DATE OF EXAM: 07/08/2020 CLINICAL HISTORY: Right-sided thoracentesis. TECHNIQUE: Single AP portable upright view of the chest is obtained. COMPARISON: Chest x-ray from 3 days earlier FINDINGS: Improved right basilar opacity after thoracentesis. No pneumothorax seen. Stable large bor e right internal jugular dialysis catheter. Persistent cardiomegaly and stable left basilar opacity. Osseous structures remain demineralized. IMPRESSION: No pneumothorax after right-sided thoracentesis. Improved right-sided effusion. Cardiomeg karen with small left greater than right pleural effusions currently present. Associated bibasilar atel ectasis improved on the right.
[2020-07-08 16:42] LABS: Glucose,Whole Blood 300 mg/dL (75-99)
[2020-07-08 18:12] LABS: Appearance,BF Hazy; Nucleated Cells, Body Fluid 125 /uL; RBC, Body Fluid 380 /uL
--- NOTE | 2020-07-08 18:16 | PN ---
PROGRESS NOTE This is an 80-year-old white female. She is status post thoracentesis on the right side of the lung. She had 950 mL of dark yellow fluid aspirated. Tolerated the procedure. Fluid went to the lab. She is breathing better. CARDIOVASCULAR: S1, S2. LUNGS: Clear. Decreased on the left GI: Soft. She is saturating 99% on 4 L, up from 92%. Blood pressure is 150s to 160s over 70 to 80, pulse 59-60, temperature 98.1. ASSESSMENT: 1. End-stage renal disease. 2. Status post thoracentesis for pleural effusion, Possibly do the other side tomorrow. 3. End-stage renal disease. She appears to be breathing better with higher oxygen levels with amount of oxygen. Prognosis guarded. Possible discharge after another thoracentesis on the other side is done tomorrow. MMODL / IJN: [id number] /
[2020-07-08 18:26] LABS: Mononuclear WBC,Body Fluid 79 %; Polynuclear WBC,Body Fluid 21 %; Total Cells Counted,Body Fluid 100
[2020-07-08 20:47] LABS: Glucose,Whole Blood 167 mg/dL (75-99)
[2020-07-08] MEDS: hydrALAZINE HCL 25 MG TAB PO SCH (20:55)
[2020-07-08] MEDS: ACETAMINOPHEN TAB 325 MG TAB PO PRN (20:55)
[2020-07-09] MEDS: CIPROFLOXACIN 0.3% OPHTH SOLN 5 ML BTL RIGHT EYE SCH ×6 (01:02→21:42)
[2020-07-09] MEDS: HEPARIN SODIUM,PORCINE 5,000 UNIT/ML 1 ML VIAL SQ SCH ×3 (01:02→16:09)
[2020-07-09 01:23] LABS: Glucose, BF Source Pleural Fluid; Glucose, Body Fluid 179 mg/dL; LDH, Body Fluid Source Pleural Fluid
[2020-07-09] MEDS: LEVOTHYROXINE 100 MCG TAB PO SCH (05:48)
[2020-07-09 07:06] LABS: Glucose,Whole Blood 159 mg/dL (75-99)
[2020-07-09] MEDS: PANTOPRAZOLE 40 MG TABLET PO SCH (07:30)
[2020-07-09] MEDS: AMIODARONE 200 MG TAB PO SCH (07:30)
[2020-07-09] MEDS: INSULIN ASPART (NovoLOG) 100 UNIT/ML VIAL SQ SCH ×4 (07:30→21:31)
[2020-07-09] MEDS: ISOSORBIDE MONONITRATE ER 60 MG TAB.ER.24H PO SCH (07:31)
[2020-07-09] MEDS: ATORVASTATIN 40 MG TAB PO SCH (07:31)
[2020-07-09] MEDS: amLODIPine 5 MG TAB PO SCH ×2 (07:31→21:41)
[2020-07-09] MEDS: ACETAMINOPHEN TAB 325 MG TAB PO PRN (07:31)
[2020-07-09] MEDS: LOSARTAN 25 MG TAB PO SCH (07:32)
[2020-07-09] MEDS: PROPRANOLOL 10 MG TAB PO SCH ×2 (07:32→21:42)
[2020-07-09] MEDS: hydrALAZINE HCL 25 MG TAB PO SCH ×3 (07:32→21:41)
[2020-07-09] MEDS: CEPHALEXIN 500 MG CAP PO SCH ×2 (07:32→21:49)
[2020-07-09] MEDS: FOLIC ACID-VIT B COMPLEX-VIT C 1 CAP PO SCH (07:32)
[2020-07-09 09:14] LABS: Basophils # (A) 0.05 X 10*3/uL (0.00-0.10); Eosinophils # (A) 0.25 X 10*3/uL (0.04-0.35); Eosinophils % (A) 4.9 %; HCT 27.4 % (37.2-46.3); Lymphocytes # (A) 1.17 X 10*3/uL (0.90-5.00); Lymphocytes % (A) 22.7 %; MCH 31.3 pg (27.0-32.0); MCHC 32.8 g/dL (32.0-37.0); MCV 95.1 fL (80.0-97.0); Mean Platelet Volume 10.5 fL (9.5-12.2); Monocytes % (A) 9.7 %; Neutrophils # (A) 3.16 X 10*3/uL (1.80-7.70); Neutrophils % (A) 61.3 %; Platelet Count 266 X 10*3/uL (140-440); RBC 2.88 X 10*6/uL (4.10-5.20); RDW 15.9 % (11.5-14.5); WBC 5.15 X 10*3/uL (4.50-10.00)
[2020-07-09 10:26] LABS: African American GFR (CKD) 20.4 (60.0-200.0); Albumin 3.2 g/dL (3.80-4.90); Albumin/Globulin Ratio 1.68 (1.60-3.17); Anion Gap 7.4 mmol/L (4.00-12.00); BUN/Creat Ratio 7.6 Ratio (12.00-20.00); Calcium 8.3 mg/dL (8.7-10.3); Carbon Dioxide 27.6 mmol/L (21.6-31.8); Globulin 1.9 g/dL (1.6-3.3); Non-African American GFR(CKD) 17.6 (60.0-200.0); Potassium 5.2 mmol/L (3.5-5.5); Total Bilirubin 0.6 mg/dL (0.2-1.2); Total Protein 5.1 g/dL (6.2-8.2)
--- NOTE | 2020-07-09 11:15 | P.PN ---
Subjective Patient is seen in follow-up for end-stage renal disease. She is maintained on hemodialysis on Wednesday schedule. Underwent thoracentesis yesterday. Feels better today. Dyspnea improved. Blood pressure remains on the higher side. Vital signs are stable. Blood pressure on the higher side. General: The patient appeared well nourished and normally developed. HEENT: Head exam is unremarkable. Neck is without jugular venous distension. LUNGS: Breath sounds decreased. HEART: Rate and Rhythm are regular. ABDOMEN: Soft, nontender. EXTREMITITES: Trace edema. Objective - Vital Signs Vital signs: Vital Signs Temp 97.8 F 07/09/20 07:50 Pulse 56 L 07/09/20 07:50 Resp 18 07/09/20 07:50 BP 175/84 07/09/20 07:50 Pulse Ox 100 07/09/20 08:33 Intake & Output 07/08/20 07/09/20 07/09/20 18:59 06:59 18:59 Output Total 2200 Balance -2200 Weight 64.5 kg 64.4 kg Output: Hemodialysis 2200 Other: Voiding Method Toilet Toilet Toilet # Voids 0 - Labs CBC & Chem 7: 07/09/20 05:36 07/09/20 05:36 Labs: Abnormal Lab Results - Last 24 Hours (Table) 07/08/20 07/08/20 07/08/20 Range/Units 05:38 11:12 16:40 RBC (4.10-5.20) X 10*6/uL Hgb (12.0-15.0) g/dL Hct (37.2-46.3) % RDW (11.5-14.5) % BUN 29.0 H (9.0-27.0) mg/dL Creatinine 2.6 H (0.6-1.5) mg/dL Est GFR (CKD-EPI)AfAm 19.4 L (60.0-200.0) Est GFR (CKD-EPI)NonAf 16.7 L (60.0-200.0) BUN/Creatinine Ratio 11.15 L (12.00-20.00) Ratio Glucose 134 H (70-110) mg/dL POC Glucose (mg/dL) 120 H 300 H (75-99) mg/dL Calcium (8.7-10.3) mg/dL AST 38 H (13-35) U/L ALT 90 H (8-44) U/L Total Protein 5.5 L (6.2-8.2) g/dL Albumin 3.40 L (3.80-4.90) g/dL 07/08/20 07/09/20 07/09/20 Range/Units 20:45 05:36 05:36 RBC 2.88 L (4.10-5.20) X 10*6/uL Hgb 9.0 L (12.0-15.0) g/dL Hct 27.4 L (37.2-46.3) % RDW 15.9 H (11.5-14.5) % BUN (9.0-27.0) mg/dL Creatinine 2.5 H (0.6-1.5) mg/dL Est GFR (CKD-EPI)AfAm 20.4 L (60.0-200.0) Est GFR (CKD-EPI)NonAf 17.6 L (60.0-200.0) BUN/Creatinine Ratio 7.60 L (12.00-20.00) Ratio Glucose 112 H (70-110) mg/dL POC Glucose (mg/dL) 167 H (75-99) mg/dL Calcium 8.3 L (8.7-10.3) mg/dL AST (13-35) U/L ALT 69 H (8-44) U/L Total Protein 5.1 L (6.2-8.2) g/dL Albumin 3.20 L (3.80-4.90) g/dL 07/09/20 Range/Units 06:54 RBC (4.10-5.20) X 10*6/uL Hgb (12.0-15.0) g/dL Hct (37.2-46.3) % RDW (11.5-14.5) % BUN (9.0-27.0) mg/dL Creatinine (0.6-1.5) mg/dL Est GFR (CKD-EPI)AfAm (60.0-200.0) Est GFR (CKD-EPI)NonAf (60.0-200.0) BUN/Creatinine Ratio (12.00-20.00) Ratio Glucose (70-110) mg/dL POC Glucose (mg/dL) 159 H (75-99) mg/dL Calcium (8.7-10.3) mg/dL AST (13-35) U/L ALT (8-44) U/L Total Protein (6.2-8.2) g/dL Albumin (3.80-4.90) g/dL Microbiology - Last 24 Hours (Table) 07/08/20 15:30 Gram Stain - Preliminary Pleural Fluid Body Fluid Culture - Preliminary 07/08/20 15:30 Fungal Culture - Preliminary Pleural Fluid 07/08/20 15:30 Acid Fast Bacilli Culture - Preliminary Pleural Fluid Assessment and Plan Plan: Assessment: 1. End-stage renal disease maintained on hemodialysis on Wednesday schedule. 2. Pleural effusions. Status post right-sided thoracentesis on July 08 with 950 mL drained. 3. Hypertension with chronic kidney disease. 4. Anemia of chronic kidney disease. Maintained on Aranesp. 5. Diabetes mellitus. Plan: Hemodialysis tomorrow - continue to challenge UF. Left-sided thoracentesis tomorrow. Increase hydralazine to 25 mg 3 times daily. Maintain Amlodipine 5 mg twice daily. To be held for systolic blood pressure less than 130. Maintain losartan - hold off on increasing dose as potassium is 5.2. Continue to monitor.
[2020-07-09 11:42] LABS: Glucose,Whole Blood 184 mg/dL (75-99)
--- NOTE | 2020-07-09 11:57 | P.PN ---
Subjective Progress Note Date: 07/09/20 Principal diagnosis: bilateral pleural effusion left more than the right likely related to diastolic heart failure primary etiologies cannot be excluded Paroxysmal atrial fibrillation on diet control anticoagulants Hypertensive urgency Chronic renal failure on hemodialysis stage V Pulmonary hypertension of moderate to severe category Sleep disorder breathing and sleep apnea 07/09/2020, patient seen eval examined during the rounds sitting upright on the chair breathing stably, able to get some sleep last night, respiratory status significantly improved after thoracentesis and removal of almost a liter yesterday, is currently on 2 L nasal cannula ultrasound of the last chest has been ordered for tomorrow will reassess for left-sided thoracentesis tomorrow 07/08/2020, patient seen eval examined during the rounds labs reviewed medications reviewed care plan discussed, continued to have severe shortness of breath unable to titrate oxygen down from 4 L, patient has been short of breath have difficulty in sleeping at nighttime supine have to be propped up with mult iple pillows, now patient is agreeable for thoracentesis, I have reviewed ultrasound images about 11 cm of fluid is present in both side much larger pocket appears to be on right side, discussed with RN as well patient explained about the procedure complication and risk she is agreeable and wants to proceed with that, currently patient is undergoing hemodialysis will plan after the dialysis 07/05/2020, patient seen eval examined during the rounds labs reviewed medications reviewed, specific complaints besides blood pressure are present, denies any chest pain or shortness of breath, last chest x-ray performed today shows improvement in interstitial Petrin with bilateral blunting of CP angle likely due to pleural effusion, some atelectasis present as well, patient remains afebrile, on 4 L oxygen saturating well patient is a 80-year-old female with prior medical history significant for COPD diabetes hypertension hypertensive cardiovascular disease and chronic kidney disease has been on hemodialysis patient has component of the proximal atrial fibrillation and has been on direct oral anticoagulation and also on aortic stenosis came into the hospital with ongoing shortness of breath and also uncontrolled hypertension, in the ER she was noted to have blood pressure 210/95, patient is well-known to me from prior medical history, she has a large left-sided pleural effusion and a small to moderate right-sided pleural effusion she insists on getting dialysis done refused thoracentesis, further workup and evaluation revealed ejection fraction of the 50-55% and moderate aortic stenosis with the mean gradient of 30 along with MR and TR significant pulmonary hypertension with RVSP of 71, patient has intermittent snoring as well she needs to be evaluated for sleep disorder breathing and sleep apnea, however patient is pretty much worked up with her uncontrolled hypertension and refused to undergo thoracentesis and sleep study at this time but may consider down the road in the future these problems do not resolve Objective - Vital Signs Vital signs: Vital Signs Temp 97.8 F 07/09/20 07:50 Pulse 56 L 07/09/20 07:50 Resp 18 07/09/20 07:50 BP 175/84 07/09/20 07:50 Pulse Ox 100 07/09/20 08:33 Intake & Output 07/08/20 07/09/20 07/09/20 18:59 06:59 18:59 Output Total 2200 Balance -2199 Weight 64.5 kg 64.4 kg Output: Hemodialysis 2199 Other: Voiding Method Toilet Toilet Toilet # Voids 0 - Exam - Constitutional General appearance: average body habitus, cooperative, disheveled, mild distress - EENT Eyes: PERRLA Ears: bilateral: normal - Neck Neck: normal ROM Carotids: bilateral: upstroke normal Thyroid: bilateral: normal size - Respiratory Respiratory: bilateral: diminished - Cardiovascular Rhythm: regular Heart sounds: normal: S1, S2 - Gastrointestinal General gastrointestinal: normal bowel sounds, soft - Neurologic Neurologic: CNII-XII intact - Musculoskeletal Musculoskeletal: gait normal, generalized weakness - Psychiatric Psychiatric: A&O x's 3, appropriate affect, intact judgment & insight - Labs CBC & Chem 7: 07/09/20 05:36 07/09/20 05:36 Labs: Abnormal Lab Results - Last 24 Hours (Table) 07/08/20 07/08/20 07/09/20 Range/Units 16:40 20:45 05:36 RBC 2.88 L (4.10-5.20) X 10*6/uL Hgb 9.0 L (12.0-15.0) g/dL Hct 27.4 L (37.2-46.3) % RDW 15.9 H (11.5-14.5) % Creatinine (0.6-1.5) mg/dL Est GFR (CKD-EPI)AfAm (60.0-200.0) Est GFR (CKD-EPI)NonAf (60.0-200.0) BUN/Creatinine Ratio (12.00-20.00) Ratio Glucose (70-110) mg/dL POC Glucose (mg/dL) 300 H 167 H (75-99) mg/dL Calcium (8.7-10.3) mg/dL ALT (8-44) U/L Total Protein (6.2-8.2) g/dL Albumin (3.80-4.90) g/dL 07/09/20 07/09/20 07/09/20 Range/Units 05:36 06:54 11:37 RBC (4.10-5.20) X 10*6/uL Hgb (12.0-15.0) g/dL Hct (37.2-46.3) % RDW (11.5-14.5) % Creatinine 2.5 H (0.6-1.5) mg/dL Est GFR (CKD-EPI)AfAm 20.4 L (60.0-200.0) Est GFR (CKD-EPI)NonAf 17.6 L (60.0-200.0) BUN/Creatinine Ratio 7.60 L (12.00-20.00) Ratio Glucose 112 H (70-110) mg/dL POC Glucose (mg/dL) 159 H 184 H (75-99) mg/dL Calcium 8.3 L (8.7-10.3) mg/dL ALT 69 H (8-44) U/L Total Protein 5.1 L (6.2-8.2) g/dL Albumin 3.20 L (3.80-4.90) g/dL Microbiology - Last 24 Hours (Table) 07/08/20 15:30 Gram Stain - Preliminary Pleural Fluid Body Fluid Culture - Preliminary 07/08/20 15:30 Fungal Culture - Preliminary Pleural Fluid 07/08/20 15:30 Acid Fast Bacilli Culture - Preliminary Pleural Fluid Assessment and Plan Assessment: bilateral pleural effusion left more than the right likely related to diastolic heart failure , end-stage renal disease, other etiologies like neoplasm cannot be excluded, status post a right-sided thoracentesis, likely transudative effusion Paroxysmal atrial fibrillation on diet control anticoagulants, currently on hold Hypertensive urgency Chronic renal failure on hemodialysis stage V Pulmonary hypertension of moderate to severe category Sleep disorder breathing and sleep apnea Plan: continue current medications with better control of the blood pressure supplemental oxygen deep breathing exercises incentive spirometry Hemodialysis plan continue home medications we will reassess with ultrasound of the left chest tomorrow with possible thoracentesis depending upon finding Procedure risk complication and alternative have been explained to the patient she would like to proceed Sleep study as outpatient Time with Patient: Greater than 30
[2020-07-09 16:43] LABS: Glucose,Whole Blood 200 mg/dL (75-99)
--- NOTE | 2020-07-09 19:35 | PN ---
PROGRESS NOTE This is an 80-year-old white female. Breathing better. We are waiting for one more set of thoracentesis on the other side of the lung tomorrow. She had a liter drained from the right side. She is going to get it drawn from the left side tomorrow. Saturating 96% to 100% on 4 L. Temperature 97.5, pulse 63, respiratory rate 16 to 18. CARDIOVASCULAR: S1, S2. HEMATOLOGY: Negative Homans. Hemoglobin is 9, white count is 5.1, creatinine is 2.5. LUNGS: Better aeration. PSYCH: She appears more happy. Cranial nerves are intact. ASSESSMENT: 1. End-stage renal disease. 2. Severe pleural effusion, status post one paracentesis. Another thoracentesis will be done tomorrow and possibly discharge home the next day after dialysis. Prognosis guarded. Await further thoracentesis results. MMODL / IJN: [id number] /
[2020-07-09 20:49] LABS: Glucose,Whole Blood 132 mg/dL (75-99)
[2020-07-10] MEDS: HEPARIN SODIUM,PORCINE 5,000 UNIT/ML 1 ML VIAL SQ SCH ×4 (00:21→23:02)
[2020-07-10] MEDS: CIPROFLOXACIN 0.3% OPHTH SOLN 5 ML BTL RIGHT EYE SCH ×7 (00:23→22:37)
[2020-07-10] MEDS: LEVOTHYROXINE 100 MCG TAB PO SCH (06:15)
[2020-07-10 06:52] LABS: Glucose,Whole Blood 130 mg/dL (75-99)
[2020-07-10] MEDS: INSULIN ASPART (NovoLOG) 100 UNIT/ML VIAL SQ SCH ×4 (07:33→20:45)
[2020-07-10] MEDS: PANTOPRAZOLE 40 MG TABLET PO SCH (07:37)
[2020-07-10 09:09] LABS: Basophils # (A) 0.04 X 10*3/uL (0.00-0.10); Basophils % (A) 0.9 %; Eosinophils # (A) 0.23 X 10*3/uL (0.04-0.35); Eosinophils % (A) 5.1 %; HCT 25.8 % (37.2-46.3); HGB 8.3 g/dL (12.0-15.0); Lymphocytes # (A) 0.92 X 10*3/uL (0.90-5.00); Lymphocytes % (A) 20.5 %; MCH 31.1 pg (27.0-32.0); MCHC 32.2 g/dL (32.0-37.0); MCV 96.6 fL (80.0-97.0); Mean Platelet Volume 10.3 fL (9.5-12.2); Monocytes % (A) 11.2 %; Neutrophils # (A) 2.76 X 10*3/uL (1.80-7.70); Neutrophils % (A) 61.6 %; Platelet Count 246 X 10*3/uL (140-440); RBC 2.67 X 10*6/uL (4.10-5.20); RDW 15.7 % (11.5-14.5); WBC 4.48 X 10*3/uL (4.50-10.00)
[2020-07-10 09:14] LABS: African American GFR (CKD) 14.5 (60.0-200.0); Albumin 3.1 g/dL (3.80-4.90); Albumin/Globulin Ratio 1.55 (1.60-3.17); Anion Gap 8.7 mmol/L (4.00-12.00); BUN/Creat Ratio 8.79 Ratio (12.00-20.00); Calcium 8.1 mg/dL (8.7-10.3); Carbon Dioxide 26.3 mmol/L (21.6-31.8); Non-African American GFR(CKD) 12.6 (60.0-200.0); Potassium 5.1 mmol/L (3.5-5.5); Total Bilirubin 0.4 mg/dL (0.2-1.2); Total Protein 5.1 g/dL (6.2-8.2)
--- NOTE | 2020-07-10 11:03 | P.PN ---
Subjective Patient is seen in follow-up for end-stage renal disease. She is maintained on hemodialysis on Wednesday schedule. Currently seen while undergoing hemodialysis. Feels well. No chest pain or shortness of breath. Vital signs are stable. Blood pressure on the higher side. General: The patient appeared well nourished and normally developed. HEENT: Head exam is unremarkable. Neck is without jugular venous distension. LUNGS: Breath sounds decreased. HEART: Rate and Rhythm are regular. ABDOMEN: Soft, nontender. EXTREMITITES: Trace edema. Objective - Vital Signs Vital signs: Vital Signs Temp 97.5 F L 07/10/20 06:45 Pulse 61 07/10/20 06:45 Resp 17 07/10/20 06:45 BP 165/70 07/10/20 06:45 Pulse Ox 100 07/10/20 08:52 Intake & Output 07/09/20 07/10/20 07/10/20 18:59 06:59 18:59 Output Total 0 200 Balance 0 -200 Output: Urine 0 200 Other: Voiding Method Toilet Toilet Toilet - Labs CBC & Chem 7: 07/10/20 05:42 07/10/20 05:42 Labs: Abnormal Lab Results - Last 24 Hours (Table) 07/09/20 07/09/20 07/09/20 Range/Units 11:37 16:41 20:47 WBC (4.50-10.00) X 10*3/uL RBC (4.10-5.20) X 10*6/uL Hgb (12.0-15.0) g/dL Hct (37.2-46.3) % RDW (11.5-14.5) % BUN (9.0-27.0) mg/dL Creatinine (0.6-1.5) mg/dL Est GFR (CKD-EPI)AfAm (60.0-200.0) Est GFR (CKD-EPI)NonAf (60.0-200.0) BUN/Creatinine Ratio (12.00-20.00) Ratio Glucose (70-110) mg/dL POC Glucose (mg/dL) 184 H 200 H 132 H (75-99) mg/dL Calcium (8.7-10.3) mg/dL ALT (8-44) U/L Total Protein (6.2-8.2) g/dL Albumin (3.80-4.90) g/dL Albumin/Globulin Ratio (1.60-3.17) g/dL 07/10/20 07/10/20 07/10/20 Range/Units 05:42 05:42 06:50 WBC 4.48 L (4.50-10.00) X 10*3/uL RBC 2.67 L (4.10-5.20) X 10*6/uL Hgb 8.3 L (12.0-15.0) g/dL Hct 25.8 L (37.2-46.3) % RDW 15.7 H (11.5-14.5) % BUN 29.0 H (9.0-27.0) mg/dL Creatinine 3.3 H (0.6-1.5) mg/dL Est GFR (CKD-EPI)AfAm 14.5 L (60.0-200.0) Est GFR (CKD-EPI)NonAf 12.6 L (60.0-200.0) BUN/Creatinine Ratio 8.79 L (12.00-20.00) Ratio Glucose 114 H (70-110) mg/dL POC Glucose (mg/dL) 130 H (75-99) mg/dL Calcium 8.1 L (8.7-10.3) mg/dL ALT 63 H (8-44) U/L Total Protein 5.1 L (6.2-8.2) g/dL Albumin 3.10 L (3.80-4.90) g/dL Albumin/Globulin Ratio 1.55 L (1.60-3.17) g/dL Microbiology - Last 24 Hours (Table) 07/08/20 15:30 Gram Stain - Preliminary Pleural Fluid Body Fluid Culture - Preliminary 07/08/20 15:30 Acid Fast Bacilli Smear - Final Pleural Fluid Acid Fast Bacilli Culture - Preliminary Assessment and Plan Plan: Assessment: 1. End-stage renal disease maintained on hemodialysis on Wednesday schedule. 2. Pleural effusions. Status post right-sided thoracentesis on July 08 with 9 50 mL drained. 3. Hypertension with chronic kidney disease. Better controlled. 4. Anemia of chronic kidney disease. Maintained on Aranesp. 5. Diabetes mellitus. 6. Anemia of chronic kidney disease. Rule out iron deficiency. Plan: Currently seen while undergoing hemodialysis. Continue to challenge ultrafiltration. Potential left-sided thoracentesis tomorrow. Maintain current antihypertensives. Check iron studies. Continue to monitor.
[2020-07-10 11:40] LABS: Glucose,Whole Blood 133 mg/dL (75-99)
--- NOTE | 2020-07-10 12:28 | PN ---
PROGRESS NOTE An 80-year-old white female who feels much better after having thoracentesis done. She is suppose to get a second side of the lungs thoracentesis today and then possibly be discharged home tonight or tomorrow. Hypertension urgency appears to be improved. Paroxysmal atrial fibrillation, stable. Chronic renal failure, stage 4, getting dialysis. Pulmonary hypertension. She is breathing better, sleeping better. She is on 2 L nasal cannula. Ultrasound of the left chest has been ordered and possible left- sided thoracentesis tomorrow or today. CARDIOVASCULAR: S1, S2. LUNGS: Decreased breath sounds on the left side. GI: Soft. HEMATOLOGY: Negative Homans. PSYCH: Fair mood and affect. Temperature 97.8, pulse 56, respiratory 16 to 18, blood pressure 170s over 80s, O2 of 100%. ASSESSMENT: 1. Bilateral pleural effusion, left more than the right secondary to diastolic heart failure. 2. End-stage renal disease. 3. Paroxysmal atrial fibrillation. 4. Hypertensive urgency. 5. Chronic renal failure. 6. Pulmonary hypertension. 7. Sleep apnea. Control blood pressure. Supplemental oxygen. Hemodialysis continue. Continue current treatment. Follow up next 24 to 48 hours. MMODL / IJN: [id number] /
[2020-07-10] MEDS: ATORVASTATIN 40 MG TAB PO SCH (13:07)
[2020-07-10] MEDS: FOLIC ACID-VIT B COMPLEX-VIT C 1 CAP PO SCH (13:07)
[2020-07-10] MEDS: hydrALAZINE HCL 25 MG TAB PO SCH ×3 (13:07→20:45)
[2020-07-10] MEDS: ISOSORBIDE MONONITRATE ER 60 MG TAB.ER.24H PO SCH (13:07)
[2020-07-10] MEDS: AMIODARONE 200 MG TAB PO SCH (13:07)
[2020-07-10] MEDS: PROPRANOLOL 10 MG TAB PO SCH ×2 (13:07→20:45)
[2020-07-10] MEDS: amLODIPine 5 MG TAB PO SCH ×2 (13:08→20:45)
[2020-07-10] MEDS: LOSARTAN 25 MG TAB PO SCH (13:08)
--- NOTE | 2020-07-10 13:49 | US ---
EXAMINATION TYPE: US chest DATE OF EXAM: 07/10/2020 COMPARISON: NONE CLINICAL HISTORY: left lung effusion; possible thoracentesis . left pleural effusion TECHNIQUE: Targeted ultrasound of the posterior lower EXAM MEASUREMENTS: Left Pleural Effusion pocket size: 9.3 cm Left skin surface to fluid distance: 2.2 cm Right side NOT marked for possible thoracentesis outside the dept. Left side marked for possible thoracentesis outside the dept. Pulmonologists are able to review the images in the patient?s EMR. IMPRESSIONS: Left pleural effusion
--- NOTE | 2020-07-10 15:48 | P.PN ---
Subjective Progress Note Date: 07/10/20 Principal diagnosis: bilateral pleural effusion left more than the right likely related to diastolic heart failure primary etiologies cannot be excluded Paroxysmal atrial fibrillation on diet control anticoagulants Hypertensive urgency Chronic renal failure on hemodialysis stage V Pulmonary hypertension of moderate to severe category Sleep disorder breathing and sleep apnea 07/10/2020, patient seen eval examined during the rounds labs reviewed medications reviewed, status post hemodialysis earlier this morning postdialysis patient is resting, patient just had the ultrasound which is reviewed of the left chest about 9.3 cm pocket of pleural fluid has been noted, patient currently exhausted with dialysis resting will do it tomorrow morning 07/09/2020, patient seen eval examined during the rounds sitting upright on the chair breathing stably, able to get some sleep last night, respiratory status significantly improved after thoracentesis and removal of almost a liter yesterday, is currently on 2 L nasal cannula ultrasound of the last chest has been ordered for tomorrow will reassess for left-sided thoracentesis tomorrow 07/08/2020, patient seen eval examined during the rounds labs reviewed medications reviewed care plan discussed, continued to have severe shortness of breath unable to titrate oxygen down from 4 L, patient has been short of breath have difficulty in sleeping at nighttime supine have to be propped up with multiple pillows, now patient is agreeable for thoracentesis, I have reviewed ultrasound images about 11 cm of fluid is present in both side much larger pocket appears to be on right side, discussed with RN as well patient explained about the procedure complication and risk she is agreeable and wants to proceed with that, currently patient is undergoing hemodialysis will plan after the dialysis 07/05/2020, patient seen eval examined during the rounds labs reviewed medications reviewed, specific complaints besides blood pressure are present, denies any chest pain or shortness of breath, last chest x-ray performed today shows improvement in interstitial Petrin with bilateral blunting of CP angle likely due to pleural effusion, some atelectasis present as well, patient remains afebrile, on 4 L oxygen saturating well patient is a 80-year-old female with prior medical history significant for COPD diabetes hypertension hypertensive cardiovascular disease and chronic kidney disease has been on hemodialysis patient has component of the proximal atrial fibrillation and has been on direct oral anticoagulation and also on aortic stenosis came into the hospital with ongoing shortness of breath and also uncontrolled hypertension, in the ER she was noted to have blood pressure 210/95, patient is well-known to me from prior medical history, she has a large left-sided pleural effusion and a small to moderate right-sided pleural effusion she insists on getting dialysis done refused thoracentesis, further workup and evaluation revealed ejection fraction of the 50-55% and moderate aortic stenosis with the mean gradient of 30 along with MR and TR significant pulmonary hypertension with RVSP of 71, patient has intermittent snoring as well she needs to be evaluated for sleep disorder breathing and sleep apnea, however patient is pretty much worked up with her uncontrolled hypertension and refused to undergo thoracentesis and sleep study at this time but may consider down the road in the future these problems do not resolve Objective - Vital Signs Vital signs: Vital Signs Temp 97.8 F 07/10/20 12:40 Pulse 56 L 07/10/20 12:40 Resp 14 07/10/20 12:40 BP 168/75 07/10/20 12:40 Pulse Ox 100 07/10/20 08:52 Intake & Output 07/09/20 07/10/20 07/10/20 18:59 06:59 18:59 Output Total 0 200 3000 Balance 0 -200 -3000 Output: Urine 0 200 Hemodialysis 3000 Other: Voiding Method Toilet Toilet Toilet - Exam - Constitutional General appearance: average body habitus, cooperative, disheveled, mild distress - EENT Eyes: PERRLA Ears: bilateral: normal - Neck Neck: normal ROM Carotids: bilateral: upstroke normal Thyroid: bilateral: normal size - Respiratory Respiratory: bilateral: diminished - Cardiovascular Rhythm: regular Heart sounds: normal: S1, S2 - Gastrointestinal General gastrointestinal: normal bowel sounds, soft - Neurologic Neurologic: CNII-XII intact - Musculoskeletal Musculoskeletal: gait normal, generalized weakness - Psychiatric Psychiatric: A&O x's 3, appropriate affect, intact judgment & insight - Labs CBC & Chem 7: 07/10/20 05:42 07/10/20 05:42 Labs: Abnormal Lab Results - Last 24 Hours (Table) 07/09/20 07/09/20 07/10/20 Range/Units 16:41 20:47 05:42 WBC 4.48 L (4.50-10.00) X 10*3/uL RBC 2.67 L (4.10-5.20) X 10*6/uL Hgb 8.3 L (12.0-15.0) g/dL Hct 25.8 L (37.2-46.3) % RDW 15.7 H (11.5-14.5) % BUN (9.0-27.0) mg/dL Creatinine (0.6-1.5) mg/dL Est GFR (CKD-EPI)AfAm (60.0-200.0) Est GFR (CKD-EPI)NonAf (60.0-200.0) BUN/Creatinine Ratio (12.00-20.00) Ratio Glucose (70-110) mg/dL POC Glucose (mg/dL) 200 H 132 H (75-99) mg/dL Calcium (8.7-10.3) mg/dL ALT (8-44) U/L Total Protein (6.2-8.2) g/dL Albumin (3.80-4.90) g/dL Albumin/Globulin Ratio (1.60-3.17) g/dL 07/10/20 07/10/20 07/10/20 Range/Units 05:42 06:50 11:39 WBC (4.50-10.00) X 10*3/uL RBC (4.10-5.20) X 10*6/uL Hgb (12.0-15.0) g/dL Hct (37.2-46.3) % RDW (11.5-14.5) % BUN 29.0 H (9.0-27.0) mg/dL Creatinine 3.3 H (0.6-1.5) mg/dL Est GFR (CKD-EPI)AfAm 14.5 L (60.0-200.0) Est GFR (CKD-EPI)NonAf 12.6 L (60.0-200.0) BUN/Creatinine Ratio 8.79 L (12.00-20.00) Ratio Glucose 114 H (70-110) mg/dL POC Glucose (mg/dL) 130 H 133 H (75-99) mg/dL Calcium 8.1 L (8.7-10.3) mg/dL ALT 63 H (8-44) U/L Total Protein 5.1 L (6.2-8.2) g/dL Albumin 3.10 L (3.80-4.90) g/dL Albumin/Globulin Ratio 1.55 L (1.60-3.17) g/dL Microbiology - Last 24 Hours (Table) 07/08/20 15:30 Gram Stain - Preliminary Pleural Fluid Body Fluid Culture - Preliminary 07/08/20 15:30 Acid Fast Bacilli Smear - Final Pleural Fluid Acid Fast Bacilli Culture - Preliminary Assessment and Plan Assessment: Moderate to large left-sided pleural effusion likely related to renal failure heart failure Paroxysmal atrial fibrillation on diet control anticoagulants, currently on hold Hypertensive urgency Chronic renal failure on hemodialysis stage V Pulmonary hypertension of moderate to severe category Sleep disorder breathing and sleep apnea Plan: Left-sided thoracentesis tomorrow continue current medications with better control of the blood pressure supplemental oxygen deep breathing exercises incentive spirometry Hemodialysis plan continue home medications Procedure risk complication and alternative have been explained to the patient she would like to proceed Sleep study as outpatient Time with Patient: Greater than 30
[2020-07-10 16:43] LABS: Glucose,Whole Blood 201 mg/dL (75-99)
[2020-07-10 17:22] LABS: % Iron Saturation 41.51 (12.00-45.00)
[2020-07-10 20:43] LABS: Glucose,Whole Blood 165 mg/dL (75-99)
[2020-07-11] MEDS: LEVOTHYROXINE 100 MCG TAB PO SCH (05:20)
[2020-07-11 06:56] LABS: Glucose,Whole Blood 128 mg/dL (75-99)
[2020-07-11] MEDS: INSULIN ASPART (NovoLOG) 100 UNIT/ML VIAL SQ SCH ×4 (07:00→20:39)
[2020-07-11] MEDS: HEPARIN SODIUM,PORCINE 5,000 UNIT/ML 1 ML VIAL SQ SCH ×3 (07:02→23:01)
[2020-07-11] MEDS: ATORVASTATIN 40 MG TAB PO SCH (08:38)
[2020-07-11] MEDS: hydrALAZINE HCL 25 MG TAB PO SCH ×3 (08:38→23:01)
[2020-07-11] MEDS: amLODIPine 5 MG TAB PO SCH ×2 (08:38→23:01)
[2020-07-11] MEDS: LOSARTAN 25 MG TAB PO SCH (08:38)
[2020-07-11] MEDS: AMIODARONE 200 MG TAB PO SCH (08:38)
[2020-07-11] MEDS: PROPRANOLOL 10 MG TAB PO SCH ×2 (08:38→23:01)
[2020-07-11] MEDS: PANTOPRAZOLE 40 MG TABLET PO SCH (08:38)
[2020-07-11] MEDS: ISOSORBIDE MONONITRATE ER 60 MG TAB.ER.24H PO SCH (08:38)
[2020-07-11] MEDS: FOLIC ACID-VIT B COMPLEX-VIT C 1 CAP PO SCH (08:38)
[2020-07-11] MEDS: CIPROFLOXACIN 0.3% OPHTH SOLN 5 ML BTL RIGHT EYE SCH ×5 (08:40→23:04)
[2020-07-11] MEDS ORDERED: LIDOCAINE 1% INJ 10MG/ML (20 ML MDV) ONE (09:29)
--- NOTE | 2020-07-11 10:36 | P.PN ---
Subjective Progress Note Date: 07/11/20 Principal diagnosis: bilateral pleural effusion left more than the right likely related to diastolic heart failure primary etiologies cannot be excluded Paroxysmal atrial fibrillation on diet control anticoagulants Hypertensive urgency Chronic renal failure on hemodialysis stage V Pulmonary hypertension of moderate to severe category Sleep disorder breathing and sleep apnea 07/11/2020, patient seen eval examined during the rounds labs reviewed medications reviewed care plan discussed, respiratory status marginal get short of breath on activity and exertion remains on supplemental oxygen, procedure of thoracentesis on the left side explained to the patient, patient wants to proceed also discusses discussed with the nephrology service 07/10/2020, patient seen eval examined during the rounds labs reviewed medications reviewed, status post hemodialysis earlier this morning postdialysis patient is resting, patient just had the ultrasound which is reviewed of the le ft chest about 9.3 cm pocket of pleural fluid has been noted, patient currently exhausted with dialysis resting will do it tomorrow morning 07/09/2020, patient seen eval examined during the rounds sitting upright on the chair breathing stably, able to get some sleep last night, respiratory status s ignificantly improved after thoracentesis and removal of almost a liter yesterday, is currently on 2 L nasal cannula ultrasound of the last chest has been ordered for tomorrow will reassess for left-sided thoracentesis tomorrow 07/08/2020, patient seen eval examined during the rounds labs reviewed medications reviewed care plan discussed, continued to have severe shortness of breath unable to titrate oxygen down from 4 L, patient has been short of breath have difficulty in sleeping at nighttime supine have to be propped up with multiple pillows, now patient is agreeable for thoracentesis, I have reviewed ultrasound images about 11 cm of fluid is present in both side much larger pocket appears to be on right side, discussed with RN as well patient explained about the procedure complication and risk she is agreeable and wants to proceed with that, currently patient is undergoing hemodialysis will plan after the dialysis 07/05/2020, patient seen eval examined during the rounds labs reviewed medications reviewed, specific complaints besides blood pressure are present, denies any chest pain or shortness of breath, last chest x-ray performed today shows improvement in interstitial Petrin with bilateral blunting of CP angle likely due to pleural effusion, some atelectasis present as well, patient remains afebrile, on 4 L oxygen saturating well patient is a 80-year-old female with prior medical history significant for COPD diabetes hypertension hypertensive cardiovascular disease and chronic kidney disease has been on hemodialysis patient has component of the proximal atrial fibrillation and has been on direct oral anticoagulation and also on aortic stenosis came into the hospital with ongoing shortness of breath and also uncontrolled hypertension, in the ER she was noted to have blood pressure 210/95, patient is well-known to me from prior medical history, she has a large left-sided pleural effusion and a small to moderate right-sided pleural effusion she insists on getting dialysis done refused thoracentesis, further workup and evaluation revealed ejection fraction of the 50-55% and moderate aortic stenosis with the mean gradient of 30 along with MR and TR significant pulmonary hypertension with RVSP of 71, patient has intermittent snoring as well she needs to be evaluated for sleep disorder breathing and sleep apnea, however patient is pretty much worked up with her uncontrolled hypertension and refused to undergo thoracentesis and sleep study at this time but may consider down the road in the future these problems do not resolve Objective - Vital Signs Vital signs: Vital Signs Temp 98 F 07/11/20 07:05 Pulse 59 L 07/11/20 07:05 Resp 18 07/11/20 07:05 BP 155/72 07/11/20 07:05 Pulse Ox 96 07/11/20 07:05 Intake & Output 07/10/20 07/11/20 07/11/20 18:59 06:59 18:59 Output Total 3000 Balance -3000 Weight 60.5 kg Output: Hemodialysis 3000 Other: Voiding Method Toilet # Voids 0 0 - Exam - Constitutional General appearance: average body habitus, cooperative, disheveled, mild distress - EENT Eyes: PERRLA Ears: bilateral: normal - Neck Neck: normal ROM Carotids: bilateral: upstroke normal Thyroid: bilateral: normal size - Respiratory Respiratory: bilateral: diminished - Cardiovascular Rhythm: regular Heart sounds: normal: S1, S2 - Gastrointestinal General gastrointestinal: normal bowel sounds, soft - Neurologic Neurologic: CNII-XII intact - Musculoskeletal Musculoskeletal: gait normal, generalized weakness - Psychiatric Psychiatric: A&O x's 3, appropriate affect, intact judgment & insight - Labs CBC & Chem 7: 07/10/20 05:42 07/10/20 05:42 Labs: Abnormal Lab Results - Last 24 Hours (Table) 07/10/20 07/10/20 07/10/20 Range/Units 05:32 11:39 16:41 POC Glucose (mg/dL) 133 H 201 H (75-99) mg/dL TIBC 212 L (228-460) ug/dL Ferritin 796.0 H (10.0-291.0) ng/mL 07/10/20 07/11/20 Range/Units 20:41 06:54 POC Glucose (mg/dL) 165 H 128 H (75-99) mg/dL TIBC (228-460) ug/dL Ferritin (10.0-291.0) ng/mL Microbiology - Last 24 Hours (Table) 07/08/20 15:30 Gram Stain - Preliminary Pleural Fluid Body Fluid Culture - Preliminary Assessment and Plan Assessment: Moderate to large left-sided pleural effusion likely related to renal failure heart failure Paroxysmal atrial fibrillation on diet control anticoagulants, currently on hold Hypertensive urgency Chronic renal failure on hemodialysis stage V Pulmonary hypertension of moderate to severe category Sleep disorder breathing and sleep apnea Plan: Left-sided thoracentesis continue current medications with better control of the blood pressure supplemental oxygen deep breathing exercises incentive spirometry Hemodialysis plan continue home medications Procedure risk complication and alternative have been explained to the patient she would like to proceed Sleep study as outpatient Time with Patient: Greater than 30
--- NOTE | 2020-07-11 10:39 | P.PCN ---
Date of Procedure: 07/11/20 Preoperative Diagnosis: Left pleural effusion, chronic renal failure, acute on chronic diastolic heart failure, shortness of breath, acute on chronic respiratory failure Postoperative Diagnosis: As above Anesthesia: local Surgeon: Jass Duenas Disposition: floor Indications for Procedure: As above Operative Findings: As below Description of Procedure: Patient prepared and draped in a usual fashion, procedure explained to the patient at length including side effect alternate event risk, 1% lidocaine was infiltrated and eighth intercostal space mid scapular line confirming fluid with ultrasound, axis was obtained into the pleural space over the upper margin of the rib pleural fluid aspirated followed by making a stab incision of 1/8 of a centimeter catheter in needle was placed needle was withdrawn catheter left in position about 450 of dark yellow pleural fluid aspirated patient tolerated procedure well no complication noted chest x-ray postprocedure is pending, fluid is being sent for Gram stain and culture cytology microbiology as well as biochemistry
--- NOTE | 2020-07-11 10:58 | XR ---
EXAMINATION TYPE: XR chest 1V portable DATE OF EXAM: 07/11/2020 Comparison: 07/08/2020 Clinical History: 80 year-old female post thoracentesis Findings: Right-sided double-lumen hemodialysis catheter with tips at the lower SVC. Heart remains enlarged. Mi ld interstitial prominence is similar to slightly increased. Small right pleural effusion with adjacent opacity appears increased. A trace left effusion appears d ecreased. No appreciable pneumothorax. Loss of the subacromial space on the right suggesting a chronic full-thickness rotator cuff tear. Impression: 1. Cardiomegaly and interstitial change, similar to minimally increased. Correlate to exclude mild pu lmonary vascular congestion. 2. Small right pleural effusion with adjacent atelectasis and/or consolidation, increased in the inte rval. A trace left pleural effusion has decreased.
--- NOTE | 2020-07-11 11:11 | P.PN ---
Subjective Patient is seen in follow-up for end-stage renal disease. She is maintained on hemodialysis on Wednesday schedule. Tolerated dialysis well yesterday with 3 L of defecation. Just completed thoracentesis with 450 mL drained. Feels better overall. No active complaints at this time. Vital signs are stable. General: The patient appeared well nourished and normally developed. HEENT: Head exam is unremarkable. Neck is without jugular venous distension. LUNGS: Breath sounds decreased. HEART: Rate and Rhythm are regular. ABDOMEN: Soft, nontender. EXTREMITITES: Trace edema. Objective - Vital Signs Vital signs: Vital Signs Temp 98 F 07/11/20 07:05 Pulse 59 L 07/11/20 07:05 Resp 18 07/11/20 07:05 BP 155/72 07/11/20 07:05 Pulse Ox 96 07/11/20 07:05 Intake & Output 07/10/20 07/11/20 07/11/20 18:59 06:59 18:59 Output Total 3000 Balance -3000 Weight 60.5 kg Output: Hemodialysis 3000 Other: Voiding Method Toilet # Voids 0 0 - Labs CBC & Chem 7: 07/10/20 05:42 07/10/20 05:42 Labs: Abnormal Lab Results - Last 24 Hours (Table) 07/10/20 07/10/20 07/10/20 Range/Units 05:32 11:39 16:41 POC Glucose (mg/dL) 133 H 201 H (75-99) mg/dL TIBC 212 L (228-460) ug/dL Ferritin 796.0 H (10.0-291.0) ng/mL 07/10/20 07/11/20 Range/Units 20:41 06:54 POC Glucose (mg/dL) 165 H 128 H (75-99) mg/dL TIBC (228-460) ug/dL Ferritin (10.0-291.0) ng/mL Microbiology - Last 24 Hours (Table) 07/08/20 15:30 Gram Stain - Preliminary Pleural Fluid Body Fluid Culture - Preliminary Assessment and Plan Plan: Assessment: 1. End-stage renal disease maintained on hemodialysis on Wednesday schedule. 2. Pleural effusions. Status post right-sided thoracentesis on July 08 with 950 mL drained. Left-sided thoracentesis done this morning at 450 mL drained. 3. Hypertension with chronic kidney disease. Better controlled. 4. Anemia of chronic kidney disease. Maintained on Aranesp. 5. Diabetes mellitus. 6. Anemia of chronic kidney disease. Iron replete. Maintained on Aranesp. Plan: Hemodialysis tomorrow. Maintain current antihypertensives.
[2020-07-11 11:46] LABS: Glucose,Whole Blood 164 mg/dL (75-99)
[2020-07-11 12:11] LABS: Color,BF Yellow
[2020-07-11 12:12] LABS: Appearance,BF Clear; Nucleated Cells, Body Fluid 250 /uL; RBC, Body Fluid 525 /uL
[2020-07-11 12:13] LABS: Mononuclear WBC,Body Fluid 90 %; Polynuclear WBC,Body Fluid 10 %; Total Cells Counted,Body Fluid 100
[2020-07-11] MEDS: ACETAMINOPHEN TAB 325 MG TAB PO PRN (15:26)
[2020-07-11] MEDS ORDERED: OZEMPIC 2 MG/1.5 ML SQ SCH (16:00)
[2020-07-11 16:46] LABS: Glucose,Whole Blood 158 mg/dL (75-99)
[2020-07-11 20:34] LABS: Glucose,Whole Blood 163 mg/dL (75-99)
--- NOTE | 2020-07-11 21:58 | PN ---
PROGRESS NOTE This is an 80-year-old white female who was admitted with end-stage renal disease, fluid overload, bilateral pleural effusions. She had thoracentesis done today. She states she is breathing better. She has 525 red cells, 250 nucleated cells, 10 polynucleated white cells. CARDIOVASCULAR: S1, S2. LUNGS: Decreased breath sounds at the bases. VITAL SIGNS: Blood pressure 140s to 150s over 50s to 60s. She is 97 on 2 L. Temperature 98, pulse is 55 to 60. ASSESSMENT: 1. End-stage renal disease. 2. Chronic obstructive pulmonary disease. 3. Bilateral pleural effusions, status post thoracentesis bilaterally. Continue current treatments. Possible discharge home tomorrow on oxygen. MMODL / IJN: [id number] /
[2020-07-12] MEDS: CIPROFLOXACIN 0.3% OPHTH SOLN 5 ML BTL RIGHT EYE SCH ×4 (04:13→08:40)
[2020-07-12 05:05] LABS: Glucose, BF Source Pleural Fluid; Glucose, Body Fluid 154 mg/dL; LDH, Body Fluid Source Pleural Fluid
[2020-07-12] MEDS: LEVOTHYROXINE 100 MCG TAB PO SCH (05:31)
[2020-07-12 07:03] LABS: Glucose,Whole Blood 123 mg/dL (75-99)
[2020-07-12] MEDS: INSULIN ASPART (NovoLOG) 100 UNIT/ML VIAL SQ SCH ×2 (08:25→11:54)
[2020-07-12] MEDS: hydrALAZINE HCL 25 MG TAB PO SCH ×2 (08:27→15:59)
[2020-07-12] MEDS: amLODIPine 5 MG TAB PO SCH (08:27)
[2020-07-12] MEDS: LOSARTAN 25 MG TAB PO SCH (08:28)
[2020-07-12] MEDS: ISOSORBIDE MONONITRATE ER 60 MG TAB.ER.24H PO SCH (08:28)
[2020-07-12] MEDS: PROPRANOLOL 10 MG TAB PO SCH (08:29)
[2020-07-12] MEDS: AMIODARONE 200 MG TAB PO SCH (08:31)
[2020-07-12] MEDS: PANTOPRAZOLE 40 MG TABLET PO SCH (08:37)
[2020-07-12] MEDS: HEPARIN SODIUM,PORCINE 5,000 UNIT/ML 1 ML VIAL SQ SCH ×2 (08:37→15:57)
[2020-07-12] MEDS: FOLIC ACID-VIT B COMPLEX-VIT C 1 CAP PO SCH (08:37)
[2020-07-12] MEDS: ATORVASTATIN 40 MG TAB PO SCH (08:37)
--- NOTE | 2020-07-12 09:19 | P.PN ---
Subjective Progress Note Date: 07/12/20 Principal diagnosis: bilateral pleural effusion left more than the right likely related to diastolic heart failure primary etiologies cannot be excluded Paroxysmal atrial fibrillation on diet control anticoagulants Hypertensive urgency Chronic renal failure on hemodialysis stage V Pulmonary hypertension of moderate to severe category Sleep disorder breathing and sleep apnea 07/12/2020, patient seen eval reexamined during the rounds labs reviewed medications reviewed care plan discussed respiratory status significantly improved patient able to sleep better also denies any pain, status post thoracentesis yesterday 450 mL of a yellow pleural fluid removed, cytology on the left side pleural effusion is pending however on the right side is negative for any malignant cells patient is stable for pulmonary standpoint for discharge with follow-up on outpatient setting 07/11/2020, patient seen eval examined during the rounds labs reviewed medications reviewed care plan discussed, respiratory status marginal get short of breath on activity and exertion remains on supplemental oxygen, procedure of thoracentesis on the left side explained to the patient, patient wants to proceed also discusses discussed with the nephrology service 07/10/2020, patient seen eval examined during the rounds labs reviewed medications reviewed, status post hemodialysis earlier this morning postdialysis patient is resting, patient just had the ultrasound which is reviewed of the left chest about 9.3 cm pocket of pleural fluid has been noted, patient currently exhausted with dialysis resting will do it tomorrow morning 07/09/2020, patient seen eval examined during the rounds sitting upright on the chair breathing stably, able to get some sleep last night, respiratory status significantly improved after thoracentesis and removal of almost a liter yesterday, is currently on 2 L nasal cannula ultrasound of the last chest has been ordered for tomorrow will reassess for left-sided thoracentesis tomorrow 07/08/2020, patient seen eval examined during the rounds labs reviewed med ications reviewed care plan discussed, continued to have severe shortness of breath unable to titrate oxygen down from 4 L, patient has been short of breath have difficulty in sleeping at nighttime supine have to be propped up with multiple pillows, now patient is agreeable for thoracentesis, I have reviewed ultrasound images about 11 cm of fluid is present in both side much larger pocket appears to be on right side, discussed with RN as well patient explained about the procedure complication and risk she is agreeable and wants to proceed with that, currently patient is undergoing hemodialysis will plan after the dialysis 07/05/2020, patient seen eval examined during the rounds labs reviewed medications reviewed, specific complaints besides blood pressure are present, denies any chest pain or shortness of breath, last chest x-ray performed today shows improvement in interstitial Petrin with bilateral blunting of CP angle likely due to pleural effusion, some atelectasis present as well, patient remains afebrile, on 4 L oxygen saturating well patient is a 80-year-old female with prior medical history significant for COPD diabetes hypertension hypertensive cardiovascular disease and chronic kidney disease has been on hemodialysis patient has component of the proximal atrial fibrillation and has been on direct oral anticoagulation and also on aortic stenosis came into the hospital with ongoing shortness of breath and also uncontrolled hypertension, in the ER she was noted to have blood pressure 210/95, patient is well-known to me from prior medical history, she has a large left-sided pleural effusion and a small to moderate right-sided pleural effusion she insists on getting dialysis done refused thoracentesis, further workup and evaluation revealed ejection fraction of the 50-55% and moderate aortic stenosis with the mean gradient of 30 along with MR and TR significant pulmonary hypertension with RVSP of 71, patient has intermittent snoring as well she needs to be evaluated for sleep disorder breathing and sleep apnea, however patient is pretty much worked up with her uncontrolled hypertension and refused to undergo thoracentesis and sleep study at this time but may consider down the road in the future these problems do not resolve Objective - Vital Signs Vital signs: Vital Signs Temp 98.9 F 07/12/20 06:57 Pulse 57 L 07/12/20 06:57 Resp 17 07/12/20 06:57 BP 180/80 07/12/20 08:05 Pulse Ox 98 07/12/20 06:57 Intake & Output 07/11/20 07/12/20 07/12/20 18:59 06:59 18:59 Weight 61.7 kg Other: Voiding Method Toilet # Voids 0 0 # Bowel Movements 0 - Exam - Constitutional General appearance: average body habitus, cooperative, disheveled, mild distress - EENT Eyes: PERRLA Ears: bilateral: normal - Neck Neck: normal ROM Carotids: bilateral: upstroke normal Thyroid: bilateral: normal size - Respiratory Respiratory: bilateral: diminished - Cardiovascular Rhythm: regular Heart sounds: normal: S1, S2 - Gastrointestinal General gastrointestinal: normal bowel sounds, soft - Neurologic Neurologic: CNII-XII intact - Musculoskeletal Musculoskeletal: gait normal, generalized weakness - Psychiatric Psychiatric: A&O x's 3, appropriate affect, intact judgment & insight - Labs CBC & Chem 7: 07/10/20 05:42 07/10/20 05:42 Labs: Abnormal Lab Results - Last 24 Hours (Table) 07/11/20 07/11/20 07/11/20 Range/Units 11:41 16:45 20:31 POC Glucose (mg/dL) 164 H 158 H 163 H (75-99) mg/dL 07/12/20 Range/Units 07:01 POC Glucose (mg/dL) 123 H (75-99) mg/dL Microbiology - Last 24 Hours (Table) 07/11/20 09:30 Gram Stain - Preliminary Pleural Fluid Body Fluid Culture - Preliminary 07/11/20 09:30 Acid Fast Bacilli Smear - Final Pleural Fluid Acid Fast Bacilli Culture - Preliminary 07/11/20 09:30 Fungal Culture - Preliminary Pleural Fluid 07/08/20 15:30 Gram Stain - Preliminary Pleural Fluid Body Fluid Culture - Preliminary Assessment and Plan Assessment: Moderate to large left-sided pleural effusion likely related to renal failure heart failure Paroxysmal atrial fibrillation on diet control anticoagulants, currently on hold Hypertensive urgency Chronic renal failure on hemodialysis stage V Pulmonary hypertension of moderate to severe category Sleep disorder breathing and sleep apnea Plan: Status post Left-sided thoracentesis , 450 mL of pleural fluid aspirated continue current medications with better control of the blood pressure supplemental oxygen deep breathing exercises incentive spirometry Hemodialysis as per plan continue home medications Agree with discharge planning follow-up on outpatient basis Sleep study as outpatient Time with Patient: Greater than 30
[2020-07-12 11:36] LABS: Glucose,Whole Blood 105 mg/dL (75-99)
[2020-07-12 12:15] VITALS: RESP 16; TEMP 98.2
--- NOTE | 2020-07-12 13:01 | P.PN ---
Subjective Patient is seen in follow-up for end-stage renal disease. She is maintained on hemodialysis on Wednesday schedule. Tolerating dialysis well. Feels better overall. No active complaints at this time. Vital signs are stable. General: The patient appeared well nourished and normally developed. HEENT: Head exam is unremarkable. Neck is without jugular venous distension. LUNGS: Breath sounds decreased. HEART: Rate and Rhythm are regular. ABDOMEN: Soft, nontender. EXTREMITITES: Trace edema. Objective - Vital Signs Vital signs: Vital Signs Temp 98.2 F 07/12/20 12:14 Pulse 98 07/12/20 12:14 Resp 16 07/12/20 12:14 BP 160/80 07/12/20 12:14 Pulse Ox 98 07/12/20 06:57 Intake & Output 07/11/20 07/12/20 07/12/20 18:59 06:59 18:59 Output Total 1999 Balance -1999 Weight 61.7 kg Output: Hemodialysis 1999 Other: Voiding Method Toilet # Voids 0 0 # Bowel Movements 0 - Labs CBC & Chem 7: 07/10/20 05:42 07/10/20 05:42 Labs: Abnormal Lab Results - Last 24 Hours (Table) 07/11/20 07/11/20 07/12/20 Range/Units 16:45 20:31 07:01 POC Glucose (mg/dL) 158 H 163 H 123 H (75-99) mg/dL 07/12/20 Range/Units 11:35 POC Glucose (mg/dL) 105 H (75-99) mg/dL Microbiology - Last 24 Hours (Table) 07/11/20 09:30 Gram Stain - Preliminary Pleural Fluid Body Fluid Culture - Preliminary 07/11/20 09:30 Acid Fast Bacilli Smear - Final Pleural Fluid Acid Fast Bacilli Culture - Preliminary 07/11/20 09:30 Fungal Culture - Preliminary Pleural Fluid 07/08/20 15:30 Gram Stain - Preliminary Pleural Fluid Body Fluid Culture - Preliminary Assessment and Plan Plan: Assessment: 1. End-stage renal disease maintained on hemodialysis on Wednesday schedule. 2. Pleural effusions. Status post right-sided thoracentesis on July 08 with 950 mL drained. Left-sided thoracentesis done this morning at 450 mL drained. 3. Hypertension with chronic kidney disease. Blood pressure high today but she has not received any of her meds due to dialysis so far. 4. Anemia of chronic kidney disease. Maintained on Aranesp. 5. Diabetes mellitus. 6. Anemia of chronic kidney disease. Iron replete. Maintained on Aranesp. Plan: Currently seen while undergoing hemodialysis. Tolerating about 2 L ultrafi ltration. Maintain current antihypertensives. Patient advised to monitor her blood pressure closely at home and to let us know if staying above 150/90.
--- NOTE | 2020-07-12 14:47 | DS ---
DISCHARGE SUMMARY An 80-year-old white female who was admitted with severe hypoxemic respiratory distress, hypertension acceleration, found to have large amount of pleural effusions bilaterally. She had both pleural effusions tapped while in the hospital. Her breathing which was worse on admission with any exertion was much improved after thoracentesis bilaterally. She will follow up with outpatient dialysis. Medicines were altered by Cardiology, Pulmonology, renal physicians. HOME MEDICINES: 1. Apresoline 25 t.i.d. 2. Cozaar 25 daily. 3. DuoNeb q.6 hours p.r.n. for wheezing. 4. Lipitor 40 daily. 5. Protonix 40 mg daily. 6. Ozempic 0.25 every 14 days. 7. Aranesp 40 mcg every 7 days. 8. Nephro-Rosario 0.8 mg daily. 9. Eliquis 2.5 b.i.d. 10.Cordarone 200 daily. 11.Ciloxan, ciprofloxacin eye drops 2 drops right eye q.4 hours. 12.Imdur 60 mg daily. 13.Inderal 30 mg b.i.d. 14.Norvasc 5 mg b.i.d. 15.Levothyroxine 100 mcg daily. CONDITION: Stable. PROGNOSIS: Guarded. Follow up in the office. MMODL / IJN: [id number] /
[2020-07-12 16:00] VITALS: BP 179/73; PULSE 56
[2020-07-24] MEDS ORDERED: DARBEPOETIN ALFA 40 MCG/0.4 ML SYRINGE SQ SCH (09:00)
== END 2020-07-12 16:29 | disposition home or self-care (01) | DRG 291 ==
LOC: 4SSUR 19:13
PROVIDERS: ADMIT Family Medicine; ATTEND Family Medicine
PROC: 5A1D70Z Performance of Urinary Filtration, Intermittent, Less than 6 Hours Per Day (ICD-10-PCS; 2020-07-02)
PROC: 0W993ZX Drainage of Right Pleural Cavity, Percutaneous Approach, Diagnostic (ICD-10-PCS; principal; 2020-07-08)
PROC: 0W9B3ZX Drainage of Left Pleural Cavity, Percutaneous Approach, Diagnostic (ICD-10-PCS; 2020-07-11)
DX: I13.2 Hypertensive heart and chronic kidney disease with heart failure and with stage 5 chronic kidney disease, or end stage renal disease (principal); N18.6 End stage renal disease; J96.21 Acute and chronic respiratory failure with hypoxia; I50.33 Acute on chronic diastolic (congestive) heart failure; J91.8 Pleural effusion in other conditions classified elsewhere; J98.11 Atelectasis; L03.213 Periorbital cellulitis; I16.0 Hypertensive urgency; I27.20 Pulmonary hypertension, unspecified; E83.9 Disorder of mineral metabolism, unspecified; D63.1 Anemia in chronic kidney disease; E11.22 Type 2 diabetes mellitus with diabetic chronic kidney disease; I48.0 Paroxysmal atrial fibrillation; J44.9 Chronic obstructive pulmonary disease, unspecified; Z99.2 Dependence on renal dialysis; E87.5 Hyperkalemia; I08.3 Combined rheumatic disorders of mitral, aortic and tricuspid valves; R00.1 Bradycardia, unspecified; I25.10 Atherosclerotic heart disease of native coronary artery without angina pectoris; E78.5 Hyperlipidemia, unspecified; E03.9 Hypothyroidism, unspecified; G47.30 Sleep apnea, unspecified; G47.00 Insomnia, unspecified; M19.90 Unspecified osteoarthritis, unspecified site; Z79.01 Long term (current) use of anticoagulants; Z79.890 Hormone replacement therapy; Z79.899 Other long term (current) drug therapy; Z90.49 Acquired absence of other specified parts of digestive tract; Z90.710 Acquired absence of both cervix and uterus; Z90.89 Acquired absence of other organs; Z98.51 Tubal ligation status; Z87.19 Personal history of other diseases of the digestive system; Z86.718 Personal history of other venous thrombosis and embolism; Z87.42 Personal history of other diseases of the female genital tract; Z87.01 Personal history of pneumonia (recurrent); Z98.42 Cataract extraction status, left eye; Z98.41 Cataract extraction status, right eye; Z86.79 Personal history of other diseases of the circulatory system; Z98.890 Other specified postprocedural states; Z88.5 Allergy status to narcotic agent; Z88.0 Allergy status to penicillin; Z88.2 Allergy status to sulfonamides; Z88.7 Allergy status to serum and vaccine; Z88.8 Allergy status to other drugs, medicaments and biological substances; Z88.6 Allergy status to analgesic agent; Z88.1 Allergy status to other antibiotic agents; Z91.041 Radiographic dye allergy status; Z91.040 Latex allergy status; Z83.3 Family history of diabetes mellitus; Z84.1 Family history of disorders of kidney and ureter
CPT/HCPCS: 71045; 76604; 80053; 82728; 82945; 83540; 83550; 83615; 84157; 84484; 85025; 85027; 87070; 87102; 87116; 87205; 87206; 88108; 88305; 89050; 90935; 93005; 94640; 94760

== ENCOUNTER 2020-07-27 21:07 | Inpatient (IN) | payer MEDICARE, OTHER ==
--- NOTE | 2020-07-27 21:38 | ED ---
Fall HPI - General Chief Complaint: Fall Stated Complaint: Altered Mental Status Time Seen by Provider: 07/27/20 21:32 Source: patient, EMS Mode of arrival: EMS Limitations: altered mental status (Appears there is probably some underlying delirium versus acute head injury) - History of Present Illness MD Complaint: fall -: hour(s) Fall From: standing When Fall Occurred: 4-6 hours MOLDED [employer] Fall Witnessed: yes, by living facility staff Place Fall Occurred: skilled nursing/SNF Loss of Consciousness: unsure Prolonged Down Time?: unclear Location: face Severity: mild Context: tripped/slipped - Related Data Home Medications Medication Instructions Recorded Confirmed Atorvastatin [Lipitor] 40 mg PO DAILY 05/04/19 07/27/20 Semaglutide [Ozempic] 0.25 mg SQ Q14D 06/25/19 07/27/20 Nephro-Rosario 0.8mg 1 tab PO DAILY 07/18/19 07/27/20 Apixaban [Eliquis] 2.5 mg PO BID 06/22/20 07/27/20 Amiodarone [Cordarone] 100 mg PO DAILY 07/29/20 07/29/20 Isosorbide Mononitrate ER [Imdur] 30 mg PO DAILY 07/29/20 07/29/20 Previous Rx's Medication Instructions Recorded Pantoprazole [Protonix] 40 mg PO YOLANDA #30 tablet. 05/11/19 Darbepoetin Tien [Aranesp] 40 mcg SQ Q7D syringe 07/01/19 Levothyroxine Sodium [Synthroid] 100 mcg PO DAILY@0630 90 Days #90 07/01/20 tab Propranolol [Inderal] 30 mg PO BID 30 Days #60 tab 07/01/20 amLODIPine [Norvasc] 5 mg PO BID 30 Days #60 tab 07/01/20 Ipratropium-Albuterol Nebulize 3 ml INHALATION RT-TID PRN ml 07/11/20 [Duoneb 0.5 mg-3 mg/3 ml Soln] Losartan [Cozaar] 25 mg PO DAILY 90 Days #90 tab 07/11/20 hydrALAZINE HCL [Apresoline] 25 mg PO TID 90 Days #270 tab 07/11/20 Allergies Allergy/AdvReac Type Severity Reaction Status Date / Time Penicillins Allergy Severe Rash/Hives Verified 07/27/20 22:55 codeine Allergy Rash/Hives Verified 07/27/20 22:55 diphenhydramine HCl Allergy Swelling Verified 07/27/20 22:55 [From Benadryl] erythromycin base Allergy Rash/Hives Verified 07/27/20 22:55 Iodinated Contrast Media Allergy Rash/Hives Verified 07/27/20 22:55 [Iodinated Contrast Media - IV Dye] iodine Allergy Rash/Hives Verified 07/27/20 22:55 latex Allergy Rash/Hives Verified 07/27/20 22:55 Sulfa (Sulfonamide Allergy Rash/Hives Verified 07/27/20 22:55 Antibiotics) Tetanus Vaccines and Toxoid Allergy Unknown Verified 07/27/20 22:55 [Tetanus Vaccines & Toxoid] Tetracyclines Allergy Rash/Hives Verified 07/27/20 22:55 aspirin AdvReac GI Bleed Verified 07/27/20 22:55 Review of Systems ROS Statement: Those systems with pertinent positive or pertinent negative responses have been documented in the HPI. ROS Other: All systems not noted in ROS Statement are negative. Limitations: ROS unobtainable due to patients medical condition Respiratory: Denies: dyspnea Cardiovascular: Denies: chest pain Gastrointestinal: Denies: abdominal pain Musculoskeletal: Denies: back pain Neurological: Denies: headache Past Medical History Past Medical History: Atrial Fibrillation, Heart Failure, COPD, Diabetes Mellitus, Dialysis, Deep Vein Thrombosis (DVT), Hyperlipidemia, Hypertension, Osteoarthritis (OA), Pneumonia, Renal Disease, Syncope Additional Past Medical History / Comment(s): Pt recently admitted to [facility] on 06/25/19 with Afib RVR, diastolic heart failure, ESRD with hemodialysis, blood clot candelario port area in her chest. Other hx: NIDDM type II, ESRD with hemodialysis on //, chronic anemia, chronic CHF, moderate pulmonary HTN, diverticulitis, lower GI bleed, bowel obstructions with surgery twice. History of Any Multi-Drug Resistant Organisms: None Reported Past Surgical History: Cholecystectomy, Hysterectomy, Tonsillectomy, Tubal Ligat ion Additional Past Surgical History / Comment(s): R chest dialysis catheter, EGDs/colonoscopies, bowel resections due to obstruction x2, bilateral cataracts removed. Past Anesthesia/Blood Transfusion Reactions: No Reported Reaction Past Psychological History: No Psychological Hx Reported Smoking Status: Never smoker Past Alcohol Use History: None Reported Past Drug Use History: None Reported - Past Family History Mother Family Medical History: No Reported History Additional Family Medical History / Comment(s): Mother was healthy and lived to be 79yrs old. Son(s) Family Medical History: Diabetes Mellitus, Dialysis, Renal Disease Additional Family Medical History / Comment(s): Son had renal failure/dialysis and at the age of 52 yrs. Brother(s) Family Medical History: Diabetes Mellitus General Exam Limitations: altered mental status General appearance: alert, in no apparent distress Head exam: Present: atraumatic, normocephalic Eye exam: Present: normal appearance, PERRL, EOMI. Absent: scleral icterus, conjunctival injection, periorbital swelling, periorbital tenderness ENT exam: Present: mucous membranes dry, other (Patient has a contusion to the nose and there is dried blood in naris) Neck exam: Present: normal inspection, full ROM. Absent: tenderness Respiratory exam: Present: normal lung sounds bilaterally. Absent: respiratory distress, wheezes, rales, rhonchi, stridor, chest wall tenderness, accessory muscle use, decreased breath sounds Cardiovascular Exam: Present: regular rate, normal rhythm, systolic murmur (. 3/6 systolic ejection murmur). Absent: diastolic murmur, rubs, gallop GI/Abdominal exam: Present: soft. Absent: distended, tenderness, guarding, rebound, rigid, mass Extremities exam: Present: normal inspection, normal capillary refill. Absent: pedal edema, calf tenderness Back exam: Present: normal inspection. Absent: CVA tenderness (R), CVA tenderness (L) Neurological exam: Present: alert, CN II-XII intact. Absent: oriented X3 (Patient is alert and oriented to person could not state the date, she did rec ognize being in a health care facility), motor sensory deficit Skin exam: Present: warm, dry, intact, pallor. Absent: rash Course Vital Signs 07/27/20 07/27/20 07/27/20 21:09 21:20 23:23 Temperature 98 F Pulse Rate 72 65 Respiratory 20 20 Rate Blood Pressure 134/79 125/68 Blood Pressure [Right Arm] O2 Sat by Pulse 88 L 100 93 L Oximetry 07/28/20 07/28/20 07/28/20 01:23 02:35 03:50 Temperature Pulse Rate 64 Respiratory 20 Rate Blood Pressure 132/85 Blood Pressure [Right Arm] O2 Sat by Pulse 93 L 84 L 89 L Oximetry 07/28/20 07/28/20 07/28/20 05:22 06:42 08:00 Temperature 97.8 F Pulse Rate 60 62 Respiratory 16 16 Rate Blood Pressure 148/75 Blood Pressure [Right Arm] O2 Sat by Pulse 91 L 96 96 Oximetry 07/28/20 07/28/20 07/28/20 09:00 10:00 12:00 Temperature Pulse Rate 62 65 70 Respiratory 18 16 18 Rate Blood Pressure Blood Pressure [Right Arm] O2 Sat by Pulse 96 96 96 Oximetry 07/28/20 07/28/20 07/28/20 13:00 14:00 15:00 Temperature Pulse Rate 61 58 L 66 Respiratory 18 18 18 Rate Blood Pressure 159/77 136/67 Blood Pressure [Right Arm] O2 Sat by Pulse 96 96 95 Oximetry 07/28/20 07/28/20 07/29/20 21:23 22:45 04:00 Temperature 99.4 F 99.4 F Pulse Rate 68 64 68 Respiratory 18 20 16 Rate Blood Pressure 157/68 157/78 157/78 Blood Pressure [Right Arm] O2 Sat by Pulse 96 95 96 Oximetry 07/29/20 07/29/20 07/29/20 06:32 12:50 14:52 Temperature 98.7 F Pulse Rate 86 60 56 L Respiratory 18 18 18 Rate Blood Pressure 160/76 165/75 138/72 Blood Pressure [Right Arm] O2 Sat by Pulse 94 L 97 99 Oximetry 07/29/20 07/29/20 07/29/20 18:00 19:00 19:08 Temperature Pulse Rate 72 60 Respiratory 16 18 16 Rate Blood Pressure 163/76 126/78 Blood Pressure 171/77 [Right Arm] O2 Sat by Pulse 99 Oximetry Medical Decision Making - Medical Decision Making Patient is an 80-year-old woman transferred here by EMS after she was found on the floor of her residence. Initially patient not able to state what had happened. Subsequent discussion with family reveals that they had tried to reach her by phone all day and finally had staff check in her room and she was found on the floor. It is uncertain how long she had been there but suspect for some time Patient is found to have a number of lab abnormalities including elevated AST ALT, and a pattern suggestive of hepatocellular injury (suspect due to Covid infection). There is broad differential diagnosis, right upper quadrant ultrasound is obtained and additional studies are ordered, GI consult. Patient with slight elevation of troponin I, there is probably some contribution related to patient's chronic renal disease as well as the component of CHF, but concerning for possible NSTEMI. Case discussed with Dr. Sarkar admitting physician. The patient's daughter (Rupali) had visited in the department and informed of the serious condition - Lab Data Result diagrams: 08/03/20 08:37 08/03/20 08:37 Lab Results 07/27/20 07/27/20 07/27/20 Range/Units 21:38 21:38 21:38 WBC 6.4 (3.8-10.6) k/uL RBC 2.99 L (3.80-5.40) m/uL Hgb 9.4 L (11.4-16.0) gm/dL Hct 27.5 L (34.0-46.0) % MCV 92.0 (80.0-100.0) fL MCH 31.3 (25.0-35.0) pg MCHC 34.0 (31.0-37.0) g/dL RDW 14.8 (11.5-15.5) % Plt Count 275 (150-450) k/uL MPV 7.6 Neutrophils % 87 % Lymphocytes % 7 % Monocytes % 4 % Eosinophils % 1 % Basophils % 0 % Neutrophils # 5.5 (1.3-7.7) k/uL Lymphocytes # 0.4 L (1.0-4.8) k/uL Monocytes # 0.3 (0-1.0) k/uL Eosinophils # 0.1 (0-0.7) k/uL Basophils # 0.0 (0-0.2) k/uL PT 16.7 H (9.0-12.0) sec INR 1.7 H (<1.2) APTT 29.4 (22.0-30.0) sec Sodium 128 L (137-145) mmol/L Potassium 4.1 (3.5-5.1) mmol/L Chloride 91 L (98-107) mmol/L Carbon Dioxide 26 (22-30) mmol/L Anion Gap 11 mmol/L BUN 29 H (7-17) mg/dL Creatinine 3.33 H (0.52-1.04) mg/dL Est GFR (CKD-EPI)AfAm 14 (>60 ml/min/1.73 sqM) Est GFR (CKD-EPI)NonAf 12 (>60 ml/min/1.73 sqM) Glucose 176 H (74-99) mg/dL Lactic Ac Sepsis Rflx Plasma Lactic Acid Brendan (0.7-2.0) mmol/L Calcium 8.2 L (8.4-10.2) mg/dL Magnesium 2.0 (1.6-2.3) mg/dL Total Bilirubin 2.7 H (0.2-1.3) mg/dL AST 6130 H (14-36) U/L ALT 3739 H (4-34) U/L Alkaline Phosphatase 150 H (38-126) U/L CK-MB (CK-2) (0.0-2.4) ng/mL Troponin I (0.000-0.034) ng/mL NT-Pro-B Natriuret Pep pg/mL Total Protein 6.1 L (6.3-8.2) g/dL Albumin 3.2 L (3.5-5.0) g/dL 07/27/20 07/27/20 07/27/20 Range/Units 21:38 21:38 21:38 WBC (3.8-10.6) k/uL RBC (3.80-5.40) m/uL Hgb (11.4-16.0) gm/dL Hct (34.0-46.0) % MCV (80.0-100.0) fL MCH (25.0-35.0) pg MCHC (31.0-37.0) g/dL RDW (11.5-15.5) % Plt Count (150-450) k/uL MPV Neutrophils % % Lymphocytes % % Monocytes % % Eosinophils % % Basophils % % Neutrophils # (1.3-7.7) k/uL Lymphocytes # (1.0-4.8) k/uL Monocytes # (0-1.0) k/uL Eosinophils # (0-0.7) k/uL Basophils # (0-0.2) k/uL PT (9.0-12.0) sec INR (<1.2) APTT (22.0-30.0) sec Sodium (137-145) mmol/L Potassium (3.5-5.1) mmol/L Chloride (98-107) mmol/L Carbon Dioxide (22-30) mmol/L Anion Gap mmol/L BUN (7-17) mg/dL Creatinine (0.52-1.04) mg/dL Est GFR (CKD-EPI)AfAm (>60 ml/min/1.73 sqM) Est GFR (CKD-EPI)NonAf (>60 ml/min/1.73 sqM) Glucose (74-99) mg/dL Lactic Ac Sepsis Rflx Plasma Lactic Acid Brendan 2.3 H* (0.7-2.0) mmol/L Calcium (8.4-10.2) mg/dL Magnesium (1.6-2.3) mg/dL Total Bilirubin (0.2-1.3) mg/dL AST (14-36) U/L ALT (4-34) U/L Alkaline Phosphatase (38-126) U/L CK-MB (CK-2) (0.0-2.4) ng/mL Troponin I 0.208 H* (0.000-0.034) ng/mL NT-Pro-B Natriuret Pep 12153 pg/mL Total Protein (6.3-8.2) g/dL Albumin (3.5-5.0) g/dL 07/27/20 07/27/20 07/28/20 Range/Units 21:38 22:49 01:01 WBC (3.8-10.6) k/uL RBC (3.80-5.40) m/uL Hgb (11.4-16.0) gm/dL Hct (34.0-46.0) % MCV (80.0-100.0) fL MCH (25.0-35.0) pg MCHC (31.0-37.0) g/dL RDW (11.5-15.5) % Plt Count (150-450) k/uL MPV Neutrophils % % Lymphocytes % % Monocytes % % Eosinophils % % Basophils % % Neutrophils # (1.3-7.7) k/uL Lymphocytes # (1.0-4.8) k/uL Monocytes # (0-1.0) k/uL Eosinophils # (0-0.7) k/uL Basophils # (0-0.2) k/uL PT (9.0-12.0) sec INR (<1.2) APTT (22.0-30.0) sec Sodium (137-145) mmol/L Potassium (3.5-5.1) mmol/L Chloride (98-107) mmol/L Carbon Dioxide (22-30) mmol/L Anion Gap mmol/L BUN (7-17) mg/dL Creatinine (0.52-1.04) mg/dL Est GFR (CKD-EPI)AfAm (>60 ml/min/1.73 sqM) Est GFR (CKD-EPI)NonAf (>60 ml/min/1.73 sqM) Glucose (74-99) mg/dL Lactic Ac Sepsis Rflx Y Plasma Lactic Acid Brendan 1.2 (0.7-2.0) mmol/L Calcium (8.4-10.2) mg/dL Magnesium (1.6-2.3) mg/dL Total Bilirubin (0.2-1.3) mg/dL AST (14-36) U/L ALT (4-34) U/L Alkaline Phosphatase (38-126) U/L CK-MB (CK-2) 2.6 H (0.0-2.4) ng/mL Troponin I (0.000-0.034) ng/mL NT-Pro-B Natriuret Pep pg/mL Total Protein (6.3-8.2) g/dL Albumin (3.5-5.0) g/dL - EKG Data -: EKG Interpreted by [place] EKG shows normal: sinus rhythm, axis (Normal), intervals (Normal), QRS complexes (Normal), ST-T waves (Inferior ST changes, possible ischemia, though they may be present on comparison ECG) Rate: normal (Rate 67 bpm) Critical Care Time Critical Care Time: Yes (30 minutes) Disposition Clinical Impression: COVID-19, Elevated liver enzymes, Pneumonia Disposition: ADMITTED IP TO THIS [facility] Condition: Critical Is patient prescribed a controlled substance at d/c from ED?: No
[2020-07-27 21:50] LABS: Basophils % (A) 0 %; Eosinophils # (A) 0.1 k/uL (0-0.7); Eosinophils % (A) 1 %; HCT 27.5 % (34.0-46.0); HGB 9.4 gm/dL (11.4-16.0); Lymphocytes # (A) 0.4 k/uL (1.0-4.8); Lymphocytes % (A) 7 %; MCH 31.3 pg (25.0-35.0); Mean Platelet Volume 7.6; Monocytes # (A) 0.3 k/uL (0-1.0); Monocytes % (A) 4 %; Neutrophils # (A) 5.5 k/uL (1.3-7.7); Neutrophils % (A) 87 %; Platelet Count 275 k/uL (150-450); RBC 2.99 m/uL (3.80-5.40); RDW 14.8 % (11.5-15.5); WBC 6.4 k/uL (3.8-10.6)
[2020-07-27 22:05] LABS: INR 1.7 (<1.2); Partial Thromboplastin Time 29.4 sec (22.0-30.0); Prothrombin Time 16.7 sec (9.0-12.0)
[2020-07-27 22:06] LABS: Albumin 3.2 g/dL (3.5-5.0); Calcium 8.2 mg/dL (8.4-10.2); Potassium 4.1 mmol/L (3.5-5.1); Total Bilirubin 2.7 mg/dL (0.2-1.3); Total Protein 6.1 g/dL (6.3-8.2)
--- NOTE | 2020-07-27 22:13 | CT ---
EXAMINATION TYPE: CT brain jolie parham con DATE OF EXAM: 07/27/2020 COMPARISON: CT brain 06/27/2012 HISTORY: Fall with head injury. CT DLP: 1258.3 mGycm Automated exposure control for dose reduction was used. There is cerebral atrophy. There is no mass effect nor midline shift. There is no sign of intracrania l hemorrhage. There is large right side Virchow-Momo space. The calvarium is intact. The skull base is intact. Cervical vertebra have normal alignment. There is disc space narrowing at C5-6 and C6-7 with spur for mation. There is no compression fracture. The facet joints are intact. There is normal aeration of th e mastoid sinuses. Skull base is intact. There is large right-sided central venous catheter noted. Mo derate pleural effusions are present with pulmonary interstitial edema. IMPRESSION: Cerebral atrophy. No acute intracranial abnormality. Spondylotic changes in the lower cervical spine. No fracture seen.
--- NOTE | 2020-07-27 22:29 | XR ---
EXAMINATION TYPE: XR chest 2V DATE OF EXAM: 07/27/2020 COMPARISON: 07/11/2020 HISTORY: Difficulty breathing TECHNIQUE: 2 views FINDINGS: There is blunting of the costophrenic angles. There is probably vascular congestion. Heart is enlarged. There is right central venous catheter with tip in the superior vena cava. There are [address] leads. IMPRESSION: Pleural effusions with basilar pulmonary infiltrates and atelectasis that is worse than l ast exam. There is probably some heart failure.
[2020-07-28] MEDS ORDERED: NALOXONE 0.4 MG/ML 1 ML VIAL IV PRN (01:16)
--- NOTE | 2020-07-28 01:47 | US ---
EXAM: US Abdomen Limited, Right Upper Quadrant CLINICAL HISTORY: attention RUQ TECHNIQUE: Real-time ultrasound of the right upper quadrant with image documentation. COMPARISON: 05/05/19 FINDINGS: Liver: Mildly coarsened hepatic echotexture. The portal vein is patent with normal direction of flow. No focal hepatic lesions. Gallbladder: Gallbladder is absent. Common bile duct: Unremarkable as visualized. No stones. No dilation. Pancreas: Unremarkable as visualized. Right kidney: Atrophic echogenic right kidney. Note hydronephrosis. No stones. Pleural space: Right pleural effusion. IMPRESSION: 1. Cholecystectomy. No biliary dilatation. 2. Chronic renal disease. No hydronephrosis. 3. Right pleural effusion.
[2020-07-28 02:21] LABS: Amylase 105 U/L (30-110); Lipase 275 U/L (23-300)
[2020-07-28] MEDS ORDERED: DEXAMETHASONE SOD PHOSPHATE 4 MG/ML 1 ML VIAL IV STA (02:52)
[2020-07-28] MEDS: SODIUM CHLORIDE 0.9% 1,000 ML IV SCH (03:42)
[2020-07-28] MEDS ORDERED: ONDANSETRON 4 MG/2 ML VIAL IVP PRN (04:05)
[2020-07-28] MEDS: ZINC SULFATE 220 MG CAP PO SCH (08:26)
[2020-07-28] MEDS: CHOLECALCIFEROL 25 MCG (1000 IU) TABLET PO SCH (08:27)
[2020-07-28] MEDS: ASCORBIC ACID 500 MG TAB PO SCH (08:27)
[2020-07-28] MEDS: DEXAMETHASONE SOD PHOSPHATE 10 MG/ML 1 ML VIAL IV SCH (08:27)
[2020-07-28] MEDS ORDERED: ENOXAPARIN 40 MG/0.4 ML SYRINGE SQ STA (10:08)
[2020-07-28] MEDS ORDERED: IPRATROPIUM-ALBUTEROL 3 ML NEB INHALATION PRN (10:28)
[2020-07-28] MEDS: ALBUTEROL HFA INHALER INHALATION PRN (11:09)
[2020-07-28 11:10] LABS: Glucose,Whole Blood 180 mg/dL (75-99)
[2020-07-28 13:33] LABS: Hepatitis A Antibody IgM Non-Reactive (Non-Reactive); Hepatitis B Core IgM Non-Reactive (Non-Reactive); Hepatitis B Surface Antigen Non-Reactive (Non-Reactive); Hepatitis C IgG Antibody Non-Reactive (Non-Reactive)
[2020-07-28 21:35] LABS: Glucose,Whole Blood 223 mg/dL (75-99)
[2020-07-28] MEDS: APIXABAN 2.5 MG TABLET PO SCH (22:49)
[2020-07-28] MEDS: PROPRANOLOL 10 MG TAB PO SCH (22:49)
[2020-07-28] MEDS ORDERED: INSULIN ASPART (NovoLOG) 100 UNIT/ML VIAL SQ ONE (23:01)
[2020-07-29] MEDS: ACETAMINOPHEN TAB 325 MG TAB PO PRN (01:42)
[2020-07-29 03:37] LABS: Basophils % (A) 0 %; Eosinophils % (A) 0 %; HCT 28.1 % (34.0-46.0); HGB 9.8 gm/dL (11.4-16.0); Lymphocytes # (A) 0.6 k/uL (1.0-4.8); Lymphocytes % (A) 10 %; MCHC 34.8 g/dL (31.0-37.0); MCV 91.9 fL (80.0-100.0); Mean Platelet Volume 8.2; Monocytes # (A) 0.3 k/uL (0-1.0); Monocytes % (A) 5 %; Neutrophils # (A) 4.8 k/uL (1.3-7.7); Neutrophils % (A) 83 %; Platelet Count 293 k/uL (150-450); RBC 3.05 m/uL (3.80-5.40); RDW 14.5 % (11.5-15.5); WBC 5.7 k/uL (3.8-10.6)
[2020-07-29 03:53] LABS: Potassium 4.3 mmol/L (3.5-5.1)
[2020-07-29 03:54] LABS: Calcium 7.9 mg/dL (8.4-10.2); Total Bilirubin 2.2 mg/dL (0.2-1.3); Total Protein 5.7 g/dL (6.3-8.2)
--- NOTE | 2020-07-29 06:51 | HP ---
HISTORY AND PHYSICAL An 80-year-old white female who is admitted in the emergency room. Saw her in the emergency room. She is on 12 L oxygen, saturating in the mid 90s. She has shortness of breath. Positive for COVID. Severely high LFTs, CRP, and LDH. She is being treated with IV remdesivir, vitamin C, vitamin D, vitamin B, IVs, dexamethasone, IV azithromycin. Home medicines for dialysis have been reordered. All blood pressure medications are on hold due to hypotension except for beta blockers. REVIEW OF SYMPTOMS: A 14-point review of systems weakness, fatigue, cough, congestion, chest pain, shortness of breath, lightheaded, dizziness, near syncope. MEDICATIONS: Please see list. PAST SURGICAL HISTORY: See list. She has a dialysis catheter in. PHYSICAL EXAMINATION: Vital signs 12 L oxygen she is saturating in the mid 90s. Cardiovascular S1-S2. Lungs scattered rhonchi and wheeze x4. HEMATOLOGY: Negative Homans. Psych fair mood and affect. Neurologic alert and oriented x3. Ophthalmological-pupils equal, round, reactive to light and accommodation. Psych fair mood and affect. Neurologic alert and oriented x3. ASSESSMENT: 1. COVID-19. 2. Chronic obstructive pulmonary disease. 3. COVID pneumonia. 4. End-stage renal disease. 5. Elevated inflammatory markers. 6. Severe hypoxemic respiratory failure secondary to COVID pneumonia. PLAN: Continue current treatment. Add remdesivir, dexamethasone. Please see further orders. MMODL / IJN: [id number] /
--- NOTE | 2020-07-29 07:27 | CONS ---
CONSULTATION DATE OF SERVICE: 07/28/2020 REASON FOR CONSULTATION: COVID-19 infection. HISTORY OF PRESENT ILLNESS: The patient is an 80-year-old female who apparently was brought into the ER by EMS after the patient was found on the floor of her residence. Per description of the family they were trying to reach her by phone earlier and finally had staff check in her room and she was found on the floor. It is not clear how long the patient had been on the floor. With these symptoms, the patient was brought into the ER. The patient is currently extremely lethargic and unable to provide any history. On arrival to the ER, the patient was afebrile. Subsequently a low-grade fever of 99.4. The patient was hypoxic with O2 sats of 88% on room air, currently 96% on 5 L nasal cannula. The patient did have a positive COVID test. Her white count was normal. Did have lymphopenia. Also noted to have elevated troponin and significantly elevated LDH, as well as ALT and AST elevation and creatinine of 3.3. The patient did have a chest x- ray, pleural effusion, bibasilar pulmonary infiltrate and atelectasis . The patient also had an abdominal ultrasound which shows cholecystectomy, no biliary dilatation, chronic renal disease, no hydronephrosis, right pleural effusion. The patient has been admitted to the hospital. Infectious Disease was consulted for further management of underlying COVID-19 infection. Most information has been obtained from review of the chart, talking to nursing staff. The patient was not able to provide any information. REVIEW OF SYSTEMS: Positive points have been mentioned in HPI. Complete review could not be obtained because of underlying mental status. PAST MEDICAL HISTORY: Atrial fibrillation, heart failure, COPD, diabetes mellitus, end-stage renal disease, on dialysis, DVT, hyperlipidemia, hypertension, osteoarthritis. PAST SURGICAL HISTORY: Cholecystectomy, hysterectomy, tonsillectomy, tubal ligation. SOCIAL HISTORY: No history of smoking, drinking or drug use. FAMILY HISTORY: No pertinent findings noticed. ALLERGIES: PENICILLIN, CODEINE, ERYTHROMYCIN, CONTRAST DYE. MEDICATIONS: The patient is currently on Ventolin, amiodarone, Eliquis, vitamin C, Lipitor, vitamin D3, Decadron, Imdur, Synthroid, Narcan, Zofran, Protonix, Inderal, zinc sulfate. PHYSICAL EXAMINATION: VITAL SIGNS: Blood pressure 157/68 with a pulse of 69, temperature 98.4, she is 93% on 5 L nasal cannula. GENERAL DESCRIPTION: Patient is an elderly female lying in bed in no distress. No tachypnea or accessory muscles of respiration use. HEENT: Examination shows pallor, no scleral icterus. Oral mucous membrane is dry. NECK: Trachea central, no thyromegaly. LUNGS: Unlabored breathing, decreased intensity of breath sounds, no wheeze. HEART: S1-S2, regular rate and rhythm. ABDOMEN: Soft, no tenderness. No guarding or rigidity. EXTREMITIES: No edema of the feet. SKIN: No rash or mass palpable. NEUROLOGICAL: Patient is awake, however, did not offer any and orientation could not be determined. LABS: BUN of 29, creatinine 3.33. Lactic acid 2.3. Bilirubin 2.7. AST 6130, ALT was 3739. Troponin is mildly elevated. Chest x-ray report as mentioned above. DIAGNOSTIC IMPRESSION: Patient admitted to the hospital after the patient was found to be on the floor with mental status changes in this patient who did have multiple abnormalities including a positive COVID test. However, not sure for how long the patient had any symptoms. The patient did have renal insufficiency and significant elevated ALT and AST that will contraindicate the use of remdesivir in this patient whose duration of symptoms is unknown. Clinically no evidence of any secondary bacterial pneumonia. PLAN: 1. Patient to continue with Eliquis. Decadron has been added. Will also add vitamin C and zinc. 2. Patient not a candidate for remdesivir on the basis of the elevated liver enzymes which is a relative contraindication. 3. Droplet isolation and respiratory support. 4. We will follow on clinical condition and further adjust medication if needed. Thank you for this consultation. Will follow this patient along with you. MMODL / IJN: [id number] /
[2020-07-29] MEDS ORDERED: ATORVASTATIN 40 MG TAB PO SCH (09:00)
[2020-07-29] MEDS ORDERED: AMIODARONE 200 MG TAB PO SCH (09:00)
[2020-07-29] MEDS ORDERED: ISOSORBIDE MONONITRATE ER 60 MG TAB.ER.24H PO SCH (09:00)
[2020-07-29] MEDS: PANTOPRAZOLE 40 MG TABLET PO SCH ×2 (09:34→09:35)
[2020-07-29] MEDS: LEVOTHYROXINE 100 MCG TAB PO SCH (09:34)
[2020-07-29] MEDS: CHOLECALCIFEROL 25 MCG (1000 IU) TABLET PO SCH (10:14)
[2020-07-29] MEDS: ASCORBIC ACID 500 MG TAB PO SCH ×2 (10:14→10:15)
[2020-07-29] MEDS: APIXABAN 2.5 MG TABLET PO SCH ×2 (10:15→21:37)
[2020-07-29] MEDS: PROPRANOLOL 10 MG TAB PO SCH ×2 (10:15→21:44)
[2020-07-29] MEDS: ZINC SULFATE 220 MG CAP PO SCH (10:15)
[2020-07-29] MEDS: DEXAMETHASONE SOD PHOSPHATE 10 MG/ML 1 ML VIAL IV SCH (10:15)
[2020-07-29 10:18] LABS: Glucose,Whole Blood 195 mg/dL (75-99)
[2020-07-29] MEDS: INSULIN ASPART (NovoLOG) 100 UNIT/ML VIAL SQ SCH ×4 (10:25→21:36)
--- NOTE | 2020-07-29 11:46 | P.CNPUL ---
History of Present Illness Consult date: 07/29/20 Reason for consult: dyspnea, cough, hypoxemia, pneumonia, pleural effusion Chief complaint: Shortness of breath cough History of present illness: This is a pleasant 80-year-old female with chronic renal failure patient is well-known to me for recurrent pleural effusion likely related to fluid overload renal failure and heart failure, patient came into the hospital due to fall and generalized weakness, patient was found to be on floor, on arrival she was noted to have oxygen saturation of just 88% however is 6 L came up to 96%, patient found to be covert positive, patient has been started on IV in remdesivir and s teroids, still short of breath sats are mid 90s on 6 L nasal cannula, most recent chest x-ray shows bilateral pleural effusion atelectasis and infiltrate Review of Systems All systems: negative Past Medical History Past Medical History: Atrial Fibrillation, Heart Failure, COPD, Diabetes Mellitus, Deep Vein Thrombosis (DVT), Hyperlipidemia, Hypertension, Osteoarthritis (OA), Pneumonia, Renal Disease, Syncope, Thyroid Disorder Additional Past Medical History / Comment(s): Pt recently admitted to [facility] on 07/02/20 with severe hypoxic respiratory distress/bilateral large pleural effusions with bilateral thoracentesis, accelerated HTN. Pt tested covid + 07/28/20 in [facility] ER. Other hx: Afib/RVR, blood clot candelario port in chest, NIDDM type II, ESRD with hemodialysis on //, chronic anemia, chronic CHF, moderate pulmonary HTN, murmur, diverticulitis, lower GI bleed, bowel obstructions with surgery twice, hypothyroid. History of Any Multi-Drug Resistant Organisms: None Reported Past Surgical History: Cholecystectomy, Hysterectomy, Tonsillectomy, Tubal Ligation Additional Past Surgical History / Comment(s): R chest dialysis catheter, EGDs/colonoscopies, bowel resections due to obstruction x2, bilateral cataracts removed. Past Anesthesia/Blood Transfusion Reactions: No Reported Reaction Smoking Status: Never smoker - Past Family History Mother Family Medical History: No Reported History Additional Family Medical History / Comment(s): Mother was healthy and lived to be 79yrs old. Son(s) Family Medical History: Diabetes Mellitus, Dialysis, Renal Disease Additional Family Medical History / Comment(s): Son had renal failure/dialysis and at the age of 52 yrs. Brother(s) Family Medical History: Diabetes Mellitus Medications and Allergies Home Medications Medication Instructions Recorded Confirmed Type Atorvastatin [Lipitor] 40 mg PO DAILY 05/04/19 07/27/20 History Pantoprazole [Protonix] 40 mg PO YOLANDA #30 tablet. 05/11/19 07/27/20 Rx Semaglutide [Ozempic] 0.25 mg SQ Q14D 06/25/19 07/27/20 History Darbepoetin Tien [Aranesp] 40 mcg SQ Q7D syringe 07/01/19 07/27/20 Rx Nephro-Rosario 0.8mg 1 tab PO DAILY 07/18/19 07/27/20 History Apixaban [Eliquis] 2.5 mg PO BID 06/22/20 07/27/20 History Amiodarone [Cordarone] 200 mg PO DAILY tab 07/01/20 07/27/20 Rx Isosorbide Mononitrate ER [Imdur] 60 mg PO DAILY 90 Days #90 07/01/20 07/27/20 Rx tab.er.24h Levothyroxine Sodium [Synthroid] 100 mcg PO DAILY@0630 90 Days #90 07/01/20 07/27/20 Rx tab Propranolol [Inderal] 30 mg PO BID 30 Days #60 tab 07/01/20 07/27/20 Rx amLODIPine [Norvasc] 5 mg PO BID 30 Days #60 tab 07/01/20 07/27/20 Rx Ipratropium-Albuterol Nebulize 3 ml INHALATION RT-TID PRN ml 07/11/20 07/27/20 Rx [Duoneb 0.5 mg-3 mg/3 ml Soln] Losartan [Cozaar] 25 mg PO DAILY 90 Days #90 tab 07/11/20 07/27/20 Rx hydrALAZINE HCL [Apresoline] 25 mg PO TID 90 Days #270 tab 07/11/20 07/27/20 Rx Allergies Allergy/AdvReac Type Severity Reaction Status Date / Time Penicillins Allergy Severe Rash/Hives Verified 07/27/20 22:55 codeine Allergy Rash/Hives Verified 07/27/20 22:55 diphenhydramine HCl Allergy Swelling Verified 07/27/20 22:55 [From Benadryl] erythromycin base Allergy Rash/Hives Verified 07/27/20 22:55 Iodinated Contrast Media Allergy Rash/Hives Verified 07/27/20 22:55 [Iodinated Contrast Media - IV Dye] iodine Allergy Rash/Hives Verified 07/27/20 22:55 latex Allergy Rash/Hives Verified 07/27/20 22:55 Sulfa (Sulfonamide Allergy Rash/Hives Verified 07/27/20 22:55 Antibiotics) Tetanus Vaccines and Toxoid Allergy Unknown Verified 07/27/20 22:55 [Tetanus Vaccines & Toxoid] Tetracyclines Allergy Rash/Hives Verified 07/27/20 22:55 aspirin AdvReac GI Bleed Verified 07/27/20 22:55 Physical Exam Vitals: Vital Signs Temp Pulse Resp BP Pulse Ox 07/29/20 06:32 98.7 F 86 18 160/76 94 L 07/29/20 04:00 99.4 F 68 16 157/78 96 07/28/20 22:45 64 20 157/78 95 07/28/20 21:23 99.4 F 68 18 157/68 96 07/28/20 15:00 66 18 95 07/28/20 14:00 58 L 18 136/67 96 07/28/20 13:00 61 18 159/77 96 07/28/20 12:00 70 18 96 Intake and Output 07/28/20 07/29/20 07/29/20 22:59 06:59 14:59 Other: Weight 58.967 kg - Constitutional General appearance: average body habitus, cooperative, disheveled - EENT Eyes: PERRLA Ears: bilateral: normal - Neck Neck: normal ROM Carotids: bilateral: upstroke normal Thyroid: bilateral: normal size - Respiratory Respiratory: bilateral: diminished - Cardiovascular Rhythm: regular Heart sounds: normal: S1, S2 - Gastrointestinal General gastrointestinal: soft - Integumentary Integumentary: normal turgor - Neurologic Neurologic: CNII-XII intact - Musculoskeletal Musculoskeletal: gait normal, generalized weakness, strength equal bilaterally - Psychiatric Psychiatric: A&O x's 3, appropriate affect, intact judgment & insight Results - Laboratory Findings CBC and BMP: 07/29/20 03:20 07/29/20 03:20 PT/INR, D-dimer PT 16.7 sec (9.0-12.0) H 07/27/20 21:38 INR 1.7 (<1.2) H 07/27/20 21:38 Abnormal lab findings: Abnormal Labs 07/27/20 07/27/20 07/27/20 21:38 21:38 21:38 RBC 2.99 L Hgb 9.4 L Hct 27.5 L Lymphocytes # 0.4 L PT 16.7 H INR 1.7 H Sodium 128 L Chloride 91 L BUN 29 H Creatinine 3.33 H Glucose 176 H POC Glucose (mg/dL) Plasma Lactic Acid Brendan Calcium 8.2 L Total Bilirubin 2.7 H AST 6130 H ALT 3739 H Alkaline Phosphatase 150 H Lactate Dehydrogenase CK-MB (CK-2) Troponin I Total Protein 6.1 L Albumin 3.2 L Procalcitonin Coronavirus (PCR) 07/27/20 07/27/20 07/27/20 21:38 21:38 21:38 RBC Hgb Hct Lymphocytes # PT INR Sodium Chloride BUN Creatinine Glucose POC Glucose (mg/dL) Plasma Lactic Acid Brendan 2.3 H* Calcium Total Bilirubin AST ALT Alkaline Phosphatase Lactate Dehydrogenase CK-MB (CK-2) 2.6 H Troponin I 0.208 H* Total Protein Albumin Procalcitonin Coronavirus (PCR) 07/28/20 07/28/20 07/28/20 01:23 01:23 01:23 RBC Hgb Hct Lymphocytes # PT INR Sodium Chloride BUN Creatinine Glucose POC Glucose (mg/dL) Plasma Lactic Acid Brendan Calcium Total Bilirubin AST ALT Alkaline Phosphatase Lactate Dehydrogenase 10273 H CK-MB (CK-2) Troponin I Total Protein Albumin Procalcitonin 1.35 H Coronavirus (PCR) Detected A 07/28/20 07/28/20 07/28/20 03:00 11:07 21:31 RBC Hgb Hct Lymphocytes # PT INR Sodium Chloride BUN Creatinine Glucose POC Glucose (mg/dL) 180 H 223 H Plasma Lactic Acid Brendan Calcium Total Bilirubin AST ALT Alkaline Phosphatase Lactate Dehydrogenase CK-MB (CK-2) Troponin I 0.359 H* Total Protein Albumin Procalcitonin Coronavirus (PCR) 07/29/20 07/29/20 07/29/20 03:20 03:20 10:07 RBC 3.05 L Hgb 9.8 L Hct 28.1 L Lymphocytes # 0.6 L PT INR Sodium 123 L Chloride 87 L BUN 60 H Creatinine 5.04 H Glucose 168 H POC Glucose (mg/dL) 195 H Plasma Lactic Acid Brendan Calcium 7.9 L Total Bilirubin 2.2 H AST 5698 H ALT 4753 H Alkaline Phosphatase 168 H Lactate Dehydrogenase CK-MB (CK-2) Troponin I Total Protein 5.7 L Albumin 3.0 L Procalcitonin Coronavirus (PCR) - Diagnostic Findings Chest x-ray: report reviewed, image reviewed (Finding as noted above) Assessment and Plan Assessment: Acute hypoxic respiratory failure Acute covid 19 pneumonia Bilateral pleural effusion Bilateral basal atelectasis Shortness of breath and cough likely multifactorial related to above Chronic renal failure on hemodialysis Fluid overload Plan: Deep breathing exercise Incentive spirometry Supplemental oxygen Continue steroids Continue IV REMdesivir for 5 days Obtain ultrasound of the chest bilateral Continue hemodialysis Fall precautions Further plan of care and management as per clinical response of the patient Time with Patient: Greater than 30
--- NOTE | 2020-07-29 12:36 | US ---
EXAMINATION TYPE: US chest DATE OF EXAM: 07/29/2020 COMPARISON: NONE CLINICAL HISTORY: pleural effusion. TECHNIQUE: Targeted ultrasound of the posterior lower bilateral hemithoraces EXAM MEASUREMENTS: Right Pleural Effusion pocket size: 10.7 cm Right skin surface to fluid distance: 1.5 cm Lung tissue noted floating at 1.9 cm Left Pleural Effusion pocket size: 7.6 cm Left skin surface to fluid distance: 1.3 cm lung tissue noted floating at 2.5 cm. Right side marked for possible thoracentesis outside the dept. Left side marked for possible thoracentesis outside the dept. Pulmonologists are able to review the images in the patient?s EMR. IMPRESSIONS: Bilateral pleural effusion
[2020-07-29 12:53] LABS: Glucose,Whole Blood 275 mg/dL (75-99)
--- NOTE | 2020-07-29 14:05 | P.CONS ---
History of Present Illness - Reason for Consult Consult date: 07/29/20 Elevated liver enzymes Requesting physician: Alexander Sarkar - Chief Complaint Altered mental status, fall - History of Present Illness 80-year-old female with multiple medical comorbidities including end-stage renal disease on hemodialysis, COPD, atrial fibrillation on Eliquis therapy, diabetes mellitus, hyperlipidemia, hypertension, prior bowel obstructions and prior DVT who presented to the hospital due to altered mental status and mechanical fall. The patient was found to be positive for the Covid 19 Billie on presentation. Currently patient has received supplemental oxygen. The patient had a mechanical fall and it is uncertain how long the patient was on the fluoroscopy, however it is felt that the patient was down 4 hours. The gastroenterology service was counseled to see the patient due to elevation in the patient's liver enzymes with total bilirubin 2.2, alkaline phosphatase 168, AST 5698 and ALT 4753. Other laboratory evaluation significant for INR 1.7, hemoglobin 9.8, WBC 5.7 and platelet count of 293,000. Ultrasound of the abdomen performed in evaluation significant for prior cholecystectomy and with no biliary ductal dilation and chronic renal disease. The patient denies any prior history of elevated liver enzymes and on review of the electronic medical records previously there are normal. No history of viral hepatitis in acute testing was negative. Review of Systems REVIEW OF SYSTEMS: CONSTITUTIONAL: Denies any fevers, chills, weight change or fatigue. CARDIOVASCULAR: Denies any chest pain, palpitations high or low blood pressures RESPIRATORY: Denies any hemoptysis, but does report cough and shortness of breath. GENITOURINARY: End-stage renal disease on hemodialysis. MUSCULOSKELETAL: No weakness reported. SKIN: Denies any new rashes or lesions, jaundice or pallor. PSYCHIATRIC: Denies any depression or anxiety. NEUROLOGY: Denies headache, denies any new focal deficits. EARS/NOSE/THROAT: No recent hearing change, congestion, nasal discharge or sore throat. EYES: No pain in eyes, discharge or change in vision. GASTROINTESTINAL: As per HPI. Past Medical History Past Medical History: Atrial Fibrillation, Heart Failure, COPD, Diabetes Mellitus, Deep Vein Thrombosis (DVT), Hyperlipidemia, Hypertension, Osteoarthr itis (OA), Pneumonia, Renal Disease, Syncope, Thyroid Disorder Additional Past Medical History / Comment(s): Pt recently admitted to [facility] on 07/02/20 with severe hypoxic respiratory distress/bilateral large pleural effusions with bilateral thoracentesis, accelerated HTN. Pt tested covid + 07/28/20 in [facility] ER. Other hx: Afib/RVR, blood clot candelario port in chest, NIDDM type II, ESRD with hemodialysis on M/W/, chronic anemia, chronic CHF, moderate pulmonary HTN, murmur, diverticulitis, lower GI bleed, bowel obstructions with surgery twice, hypothyroid. History of Any Multi-Drug Resistant Organisms: None Reported Past Surgical History: Cholecystectomy, Hysterectomy, Tonsillectomy, Tubal Ligation Additional Past Surgical History / Comment(s): R chest dialysis catheter, EGDs/colonoscopies, bowel resections due to obstruction x2, bilateral cataracts removed. Past Anesthesia/Blood Transfusion Reactions: No Reported Reaction Smoking Status: Never smoker - Past Family History Mother Family Medical History: No Reported History Additional Family Medical History / Comment(s): Mother was healthy and lived to be 79yrs old. Son(s) Family Medical History: Diabetes Mellitus, Dialysis, Renal Disease Additional Family Medical History / Comment(s): Son had renal failure/dialysis and at the age of 52 yrs. Brother(s) Family Medical History: Diabetes Mellitus Medications and Allergies Home Medications Medication Instructions Recorded Confirmed Type Atorvastatin [Lipitor] 40 mg PO DAILY 05/04/19 07/27/20 History Pantoprazole [Protonix] 40 mg PO -BRKFST #30 tablet. 05/11/19 07/27/20 Rx Semaglutide [Ozempic] 0.25 mg SQ Q14D 06/25/19 07/27/20 History Darbepoetin Tien [Aranesp] 40 mcg SQ Q7D syringe 07/01/19 07/27/20 Rx Nephro-Rosario 0.8mg 1 tab PO DAILY 07/18/19 07/27/20 History Apixaban [Eliquis] 2.5 mg PO BID 06/22/20 07/27/20 History Levothyroxine Sodium [Synthroid] 100 mcg PO DAILY@0630 90 Days #90 07/01/20 07/27/20 Rx tab Propranolol [Inderal] 30 mg PO BID 30 Days #60 tab 07/01/20 07/27/20 Rx amLODIPine [Norvasc] 5 mg PO BID 30 Days #60 tab 07/01/20 07/27/20 Rx Ipratropium-Albuterol Nebulize 3 ml INHALATION RT-TID PRN ml 07/11/20 07/27/20 Rx [Duoneb 0.5 mg-3 mg/3 ml Soln] Losartan [Cozaar] 25 mg PO DAILY 90 Days #90 tab 07/11/20 07/27/20 Rx hydrALAZINE HCL [Apresoline] 25 mg PO TID 90 Days #270 tab 07/11/20 07/27/20 Rx Amiodarone [Cordarone] 100 mg PO DAILY 07/29/20 07/29/20 History Isosorbide Mononitrate ER [Imdur] 30 mg PO DAILY 07/29/20 07/29/20 History Allergies Allergy/AdvReac Type Severity Reaction Status Date / Time Penicillins Allergy Severe Rash/Hives Verified 07/27/20 22:55 codeine Allergy Rash/Hives Verified 07/27/20 22:55 diphenhydramine HCl Allergy Swelling Verified 07/27/20 22:55 [From Benadryl] erythromycin base Allergy Rash/Hives Verified 07/27/20 22:55 Iodinated Contrast Media Allergy Rash/Hives Verified 07/27/20 22:55 [Iodinated Contrast Media - IV Dye] iodine Allergy Rash/Hives Verified 07/27/20 22:55 latex Allergy Rash/Hives Verified 07/27/20 22:55 Sulfa (Sulfonamide Allergy Rash/Hives Verified 07/27/20 22:55 Antibiotics) Tetanus Vaccines and Toxoid Allergy Unknown Verified 07/27/20 22:55 [Tetanus Vaccines & Toxoid] Tetracyclines Allergy Rash/Hives Verified 07/27/20 22:55 aspirin AdvReac GI Bleed Verified 07/27/20 22:55 Physical Exam Vitals: Vital Signs Temp Pulse Resp BP Pulse Ox 07/29/20 06:32 98.7 F 86 18 160/76 94 L 07/29/20 04:00 99.4 F 68 16 157/78 96 07/28/20 22:45 64 20 157/78 95 07/28/20 21:23 99.4 F 68 18 157/68 96 07/28/20 15:00 66 18 95 07/28/20 14:00 58 L 18 136/67 96 07/28/20 13:00 61 18 159/77 96 07/28/20 12:00 70 18 96 Intake and Output 07/28/20 07/29/20 07/29/20 22:59 06:59 14:59 Other: Weight 58.967 kg On physical examination, patient appears comfortable in no apparent distress. HEAD: Normocephalic, atraumatic. EYES: No scleral icterus. No conjunctival injection. MOUTH: No lesions, tongue midline. NECK: Trachea midline, no gross abnormalities. CHEST: Decreased air entry in all lung grimes. HEART: S1-S2 appreciated. ABDOMEN: Soft, thin and nontender to palpation. Bowel sounds are positive. No organomegaly. No guarding or rigidity. EXTREMITIES: No pedal edema. SKIN: No rashes, no jaundice. NEUROLOGIC: Alert and oriented to person and place. No focal deficits. Results CBC & Chem 7: 07/29/20 03:20 07/29/20 03:20 Labs: Abnormal Lab Results - Last 24 Hours (Table) 07/28/20 07/28/20 07/29/20 Range/Units 01:23 21:31 03:20 RBC 3.05 L (3.80-5.40) m/uL Hgb 9.8 L (11.4-16.0) gm/dL Hct 28.1 L (34.0-46.0) % Lymphocytes # 0.6 L (1.0-4.8) k/uL Sodium (137-145) mmol/L Chloride (98-107) mmol/L BUN (7-17) mg/dL Creatinine (0.52-1.04) mg/dL Glucose (74-99) mg/dL POC Glucose (mg/dL) 223 H (75-99) mg/dL Calcium (8.4-10.2) mg/dL Total Bilirubin (0.2-1.3) mg/dL AST (14-36) U/L ALT (4-34) U/L Alkaline Phosphatase (38-126) U/L Total Protein (6.3-8.2) g/dL Albumin (3.5-5.0) g/dL Procalcitonin 1.35 H (0.02-0.09) ng/mL 07/29/20 07/29/20 Range/Units 03:20 10:07 RBC (3.80-5.40) m/uL Hgb (11.4-16.0) gm/dL Hct (34.0-46.0) % Lymphocytes # (1.0-4.8) k/uL Sodium 123 L (137-145) mmol/L Chloride 87 L (98-107) mmol/L BUN 60 H (7-17) mg/dL Creatinine 5.04 H (0.52-1.04) mg/dL Glucose 168 H (74-99) mg/dL POC Glucose (mg/dL) 195 H (75-99) mg/dL Calcium 7.9 L (8.4-10.2) mg/dL Total Bilirubin 2.2 H (0.2-1.3) mg/dL AST 5698 H (14-36) U/L ALT 4753 H (4-34) U/L Alkaline Phosphatase 168 H (38-126) U/L Total Protein 5.7 L (6.3-8.2) g/dL Albumin 3.0 L (3.5-5.0) g/dL Procalcitonin (0.02-0.09) ng/mL US - abdomen: report reviewed (Ultrasound of the abdomen with evidence of prior cholecystectomy with no ductal dilation and renal disease noted.) Assessment and Plan (1) Elevated liver enzymes Narrative/Plan: 80-year-old female with multiple medical comorbidities who presented to the hospital for evaluation of altered mental status and mechanical fall. Patient but down for hours prior to presentation. Found to have marked elevation in her liver enzymes on presentation with total bilirubin 2.2, alkaline phosphatase 168, AST 5698 and ALT 4753. No history of liver disease and prior examinations were significant for normal liver enzymes. Ultrasound was abdomen with postcholecystectomy state, with no ductal dilation and medical renal disease noted. Liver enzymes likely multifactorial secondary to hypoperfusion as well as elevated in the setting of rhabdomyolysis. Current Visit: Yes Status: Acute Code(s): R74.8 - ABNORMAL LEVELS OF OTHER SERUM ENZYMES SNOMED Code(s): 529965175 Plan: Supportive care Okay for diet as tolerated Continue monitor CBC, BMP, LFTs Ultrasound of the abdomen reviewed No plans for endoscopic evaluation at this time Acute viral hepatitis panel was negative Continue monitor liver enzymes and if no improvement full liver serologies will be ordered Thank you for allowing us to participate in the care of the patient
[2020-07-29 19:12] LABS: Glucose,Whole Blood 127 mg/dL (75-99)
--- NOTE | 2020-07-29 20:02 | PN ---
PROGRESS NOTE [id number] white female with chronic renal failure, recurrent pleural effusion, fluid overload, came in with COVID pneumonia. She is at 5 liters, high 90s, temperature 98.7, pulse 60s to 80s, respiratory rate 18-20, blood pressure 150s to 160s over 70s. She looks weak, fatigued. CARDIOVASCULAR: S1, S2. ABDOMEN: Soft. INTEGUMENT: Normal turgor. Cranial nerves are intact. LUNGS: Scattered wheeze and rhonchi. White count 5.7, hemoglobin 9.8. Sodium 123, potassium 4.3, BUN 60, creatinine 5.04 and procalcitonin 1.35. Coronavirus positive. Liver enzymes 56, 98, 47, 53. ASSESSMENT: 1. Acute COVID-19 pneumonia. 2. Bilateral pleural effusion. 3. Bilateral basal atelectasis. 4. Shortness of breath, multifactorial. 5. Chronic renal failure. 6. Fluid overload. Continue steroids for dyspnea for 5 days. Ultrasound of the chest. Possible thoracentesis will be done. Try to wean down on her oxygen. Continue with infectious disease recommendations. She started at 10.7 cm on the right pleural effusion. Possibly thoracentesis will have to be done in the next 24 to 48 hours. Please see further orders. MMODL / IJN: [id number] /
[2020-07-29] MEDS: SODIUM CHLORIDE 0.9% 1,000 ML IV SCH (20:57)
[2020-07-29 21:03] LABS: Glucose,Whole Blood 177 mg/dL (75-99)
--- NOTE | 2020-07-29 23:27 | PN ---
PROGRESS NOTE DATE OF SERVICE: 07/29/2020 REASON FOR FOLLOWUP: COVID-19 infection. INTERVAL HISTORY: Patient is currently afebrile. The patient is feeling better and mentioned she is doing well. Denies having any chest pain, shortness of breath. Occasional cough. No abdominal pain or diarrhea. PHYSICAL EXAMINATION: Blood pressure 126/78, pulse of 73, temperature 98.7. She is 99% on 5 L nasal cannula. GENERAL description is an elderly female lying in bed in no distress. RESPIRATORY system: Unlabored breathing, decreased intensity of breath sounds. No wheeze. HEART: S1, S2. Regular rate and rhythm. ABDOMEN soft, no tenderness. LABS: Hemoglobin is 9.1, white count of 5.7. Liver enzymes did show slight improvement. DIAGNOSTIC IMPRESSION AND PLAN: Patient admitted to the hospital the patient did have a fall on the floor and possibly did have down time. Presented with mental status changes and this patient did have positive Covid test. He did have renal insufficiency as well as elevated liver enzymes and did not meet criteria for Remdesivir. Currently covered with Eliquis, Decadron, zinc, ascorbic acid to continue along with respiratory support and monitor clinical course closely. MMODL / IJN: [id number] /
[2020-07-30] MEDS: SODIUM CHLORIDE 0.9% 1,000 ML IV SCH (00:41)
[2020-07-30] MEDS ORDERED: QUEtiapine 25 MG TAB PO STA ×2 (02:29→03:21)
[2020-07-30] MEDS: LORazepam 2 MG/ML INJ IV PRN (05:31)
[2020-07-30] MEDS: LEVOTHYROXINE 100 MCG TAB PO SCH (05:32)
[2020-07-30 06:31] LABS: Glucose,Whole Blood 203 mg/dL (75-99)
[2020-07-30] MEDS: INSULIN ASPART (NovoLOG) 100 UNIT/ML VIAL SQ SCH ×4 (06:40→20:09)
[2020-07-30] MEDS: ALBUTEROL HFA INHALER INHALATION PRN (07:50)
[2020-07-30] MEDS: DEXAMETHASONE SOD PHOSPHATE 10 MG/ML 1 ML VIAL IV SCH (08:46)
[2020-07-30 09:28] LABS: Albumin 2.5 g/dL (3.5-5.0); Calcium 7.6 mg/dL (8.4-10.2); Potassium 3.3 mmol/L (3.5-5.1); Total Bilirubin 1.4 mg/dL (0.2-1.3); Total Protein 4.9 g/dL (6.3-8.2)
[2020-07-30 09:29] LABS: Basophils % (A) 0 %; Eosinophils % (A) 0 %; HCT 24.9 % (34.0-46.0); HGB 8.6 gm/dL (11.4-16.0); Lymphocytes # (A) 0.3 k/uL (1.0-4.8); Lymphocytes % (A) 6 %; MCH 32.1 pg (25.0-35.0); MCHC 34.6 g/dL (31.0-37.0); MCV 92.7 fL (80.0-100.0); Mean Platelet Volume 7.6; Monocytes # (A) 0.3 k/uL (0-1.0); Monocytes % (A) 7 %; Neutrophils # (A) 3.9 k/uL (1.3-7.7); Neutrophils % (A) 86 %; Platelet Count 251 k/uL (150-450); RBC 2.69 m/uL (3.80-5.40); RDW 14.9 % (11.5-15.5); WBC 4.5 k/uL (3.8-10.6)
[2020-07-30 09:32] LABS: INR 1.3 (<1.2); Prothrombin Time 13.6 sec (9.0-12.0)
[2020-07-30 11:47] LABS: Glucose,Whole Blood 175 mg/dL (75-99)
[2020-07-30] MEDS: APIXABAN 2.5 MG TABLET PO SCH ×2 (13:04→20:09)
[2020-07-30] MEDS: CHOLECALCIFEROL 25 MCG (1000 IU) TABLET PO SCH (13:05)
[2020-07-30] MEDS: ISOSORBIDE MONONITRATE ER 30 MG TAB.ER.24H PO SCH (13:06)
[2020-07-30] MEDS: ZINC SULFATE 220 MG CAP PO SCH (13:06)
[2020-07-30] MEDS: AMIODARONE 100 MG TAB PO SCH (13:19)
[2020-07-30] MEDS: PROPRANOLOL 10 MG TAB PO SCH ×2 (13:19→20:09)
--- NOTE | 2020-07-30 14:35 | P.PN ---
Subjective Progress Note Date: 07/30/20 Principal diagnosis: Transaminitis The patient is seen and examined lying in bed. She is very drowsy, but easily arousable. She denies any abdominal pain, nausea, or vomiting. LFTs are trending down, likely all related to Covid-19 infection and recent fall. Objective - Vital Signs Vital signs: Vital Signs Temp 97.6 F 07/30/20 03:47 Pulse 59 L 07/30/20 03:47 Resp 18 07/30/20 03:47 BP 143/66 07/30/20 03:47 Pulse Ox 96 07/30/20 03:47 Intake & Output 07/29/20 07/30/20 07/30/20 18:59 06:59 18:59 Intake Total 10 Output Total 1999 -1989 Weight 58.967 kg 41.5 kg Intake: IV 10 0.9 10 Output: Urine 0 Hemodialysis 1999 Other: Voiding Method Bedpan Diaper # Voids 1 - Exam General appearance: The patient is drowsey, easily arousable, alert, appears in no acute distress. HET: Head is normocephalic and atraumatic. Conjunctiva pink. Sclera anicteric. Neck: Supple without lymphadenopathy. Abdomen: Soft, nontender, nondistended with bowel sounds. No guarding or rigidity. Extremities: Normal skin color and turgor. No pedal edema Skin: No rashes, no jaundice Neurological: No focal deficits. Alert and oriented 1-2. - Labs CBC & Chem 7: 07/30/20 07:44 07/30/20 07:44 Labs: Abnormal Lab Results - Last 24 Hours (Table) 07/29/20 07/29/20 07/29/20 Range/Units 10:07 12:51 19:09 POC Glucose (mg/dL) 195 H 275 H 127 H (75-99) mg/dL 07/29/20 07/30/20 Range/Units 21:02 06:29 POC Glucose (mg/dL) 177 H 203 H (75-99) mg/dL Assessment and Plan (1) Elevated liver enzymes Narrative/Plan: Narrative/Plan: This is an 80-year-old female with multiple medical comorbidities who presented to the hospital for evaluation of altered mental status and mechanical fall. Patient but down for hours prior to presentation. Found to have marked elevation in her liver enzymes on presentation with total bilirubin 2.2, alkaline phosphatase 168, AST 5698 and ALT 4753. No history of liver disease and prior examinations were significant for normal liver enzymes. Ultrasound was abdomen with postcholecystectomy state, with no ductal dilation and medical renal disease noted. Liver enzymes likely multifactorial secondary to hypoperfusion as well as elevated in the setting of rhabdomyolysis. Current Visit: Yes Status: Acute Code(s): R74.8 - ABNORMAL LEVELS OF OTHER SERUM ENZYMES SNOMED Code(s): 157751962 (2) COVID-19 Current Visit: Yes Status: Acute Code(s): U07.1 - COVID-19 SNOMED Code(s): 901519382 Plan: 1. Supportive care 2. Okay for diet as tolerated 3. Continue monitor CBC, BMP, LFTs 4. Ultrasound of the abdomen reviewed 5. No plans for endoscopic evaluation at this time 6. Acute viral hepatitis panel was negative Liver enzymes consistently improving, no further serological workup indicated Thank you for allowing us to participate in the care of the patient Dr. Adriana Baptiste I agree with the dictator's note, documented as a scribe by Elizabeth Leonard.
--- NOTE | 2020-07-30 14:40 | PN ---
PROGRESS NOTE An 80-year-old white female who became very confused during the middle of the night, crying now, yelling out. Seroquel was given, did not work. So we gave her the Ativan, which helped calm her down. She fell asleep. She has COVID-19 infection, severe shortness of breath which is persisting. She is on 5 L of oxygen saturation 99, temperature 97, pulse 73, blood pressure 126/78. CARDIAC: S1, S2. LUNGS: Are fairly clear. GI: Soft. Labs are reviewed. Slight improvement in the liver enzymes. ASSESSMENT: 1. COVID-19. 2. Renal insufficiency. 3. Elevated liver enzymes. Apparently did not meet remdesivir criteria. Going to continue treatment with Eliquis, Decadron, zinc, ascorbic acid and respiratory support. Prognosis extremely guarded. She has delirium secondary to dementia and end-stage renal disease for which she is getting dialysis. Prognosis is extremely guarded. MMODL / IJN: [id number] /
[2020-07-30 16:37] LABS: Glucose,Whole Blood 210 mg/dL (75-99)
--- NOTE | 2020-07-30 17:35 | CDI ---
Documentation Clarification Form Date: 07/30/2020 05:33:36 PM From: Gavi Chacon RN, CCDS Admit Date: 07/28/2020 01:16:00 AM Patient Name: Page Travis Visit Number: [id number] ATTENTION: The Clinical Documentation Specialists (CDI) and [facility] Coding Staff appreciate your assistance in clarifying documentation. Please respond to the clarification below the line at the bottom and electronically sign. The CDI & [facility] Coding staff will review the response and follow-up if needed. Please note: Queries are made part of the Legal Health Record. If you have any questions, please contact the author of this message via ITS. Dr. Alexander Sarkar Patient has a documented BMI of 16.7]. Additional clarification of clinical significance is requested. History/Risk Factors: ESRD on HD, chronic diastolic CHF, Covid 19 pneumonia, HTN, HLD, COPD Clinical Indicators: Patients weight is 41.5 Kg Patients height is 62 in. Calculated BMI is 16.7kg/m2 07/29 Pulmonary Consult: "patient came into the hospital due to fall and generalized weakness." Treatments: Dietary Consult completed 07/30 Supplements: Glucerna TID Please clarify, is there is an additional diagnosis that is clinically appropriate for this patient? Cachexia Moderate Protein calorie Malnutrition Severe Protein Calorie Malnutrition Other, please specify Unable to determine (Template Last Revised: May 2020) MTDD
--- NOTE | 2020-07-30 20:06 | P.PN ---
Subjective Progress Note Date: 07/30/20 Principal diagnosis: Acute hypoxic respiratory failure Acute covid 19 pneumonia Bilateral pleural effusion Bilateral basal atelectasis Shortness of breath and cough likely multifactorial related to above Chronic renal failure on hemodialysis Fluid overload 07/30/2020, patient seen audrey examined has been restless overnight yesterday evening had a long dialysis 2 L of fluid has been removed patient resting now did have a single dose of Ativan IV, oxygen is down to 4 L, ultrasound of the chest performed shows moderate right-sided effusion is small to moderate left-sided effusion This is a pleasant 80-year-old female with chronic renal failure patient is well-known to me for recurrent pleural effusion likely related to fluid overload renal failure and heart failure, patient came into the hospital due to fall and generalized weakness, patient was found to be on floor, on arrival she was noted to have oxygen saturation of just 88% however is 6 L came up to 96%, patient found to be covert positive, patient has been started on IV in remdesivir and steroids, still short of breath sats are mid 90s on 6 L nasal cannula, most recent chest x-ray shows bilateral pleural effusion atelectasis and infiltrate Objective - Vital Signs Vital signs: Vital Signs Temp 98.5 F 07/30/20 12:00 Pulse 61 07/30/20 16:00 Resp 16 07/30/20 16:00 BP 150/71 07/30/20 16:00 Pulse Ox 91 L 07/30/20 16:00 Intake & Output 07/30/20 07/30/20 07/31/20 06:59 18:59 06:59 Intake Total 10 360 Output Total 1999 -1989 360 Weight 41.5 kg 41.5 kg Intake: IV 10 0.9 10 Oral 360 Output: Urine 0 Hemodialysis 1999 Other: Voiding Method Bedpan Bedpan Diaper Diaper # Voids 1 1 - Exam - Constitutional General appearance: average body habitus, cooperative, disheveled - EENT Eyes: PERRLA Ears: bilateral: normal - Neck Neck: normal ROM Carotids: bilateral: upstroke normal Thyroid: bilateral: normal size - Respiratory Respiratory: bilateral: diminished - Cardiovascular Rhythm: regular Heart sounds: normal: S1, S2 - Gastrointestinal General gastrointestinal: soft - Integumentary Integumentary: normal turgor - Neurologic Neurologic: CNII-XII intact - Musculoskeletal Musculoskeletal: gait normal, generalized weakness, strength equal bilaterally - Psychiatric Psychiatric: A&O x's 3, appropriate affect, intact judgment & insight - Labs CBC & Chem 7: 07/30/20 07:44 07/30/20 07:44 Labs: Abnormal Lab Results - Last 24 Hours (Table) 07/29/20 07/30/20 07/30/20 Range/Units 21:02 06:29 07:44 RBC 2.69 L (3.80-5.40) m/uL Hgb 8.6 L (11.4-16.0) gm/dL Hct 24.9 L (34.0-46.0) % Lymphocytes # 0.3 L (1.0-4.8) k/uL PT (9.0-12.0) sec INR (<1.2) Sodium (137-145) mmol/L Potassium (3.5-5.1) mmol/L Chloride (98-107) mmol/L BUN (7-17) mg/dL Creatinine (0.52-1.04) mg/dL Glucose (74-99) mg/dL POC Glucose (mg/dL) 177 H 203 H (75-99) mg/dL Calcium (8.4-10.2) mg/dL Total Bilirubin (0.2-1.3) mg/dL AST (14-36) U/L ALT (4-34) U/L Alkaline Phosphatase (38-126) U/L Lactate Dehydrogenase (313-618) U/L C-Reactive Protein (<10.0) mg/L Total Protein (6.3-8.2) g/dL Albumin (3.5-5.0) g/dL 07/30/20 07/30/20 07/30/20 Range/Units 07:44 07:44 07:44 RBC (3.80-5.40) m/uL Hgb (11.4-16.0) gm/dL Hct (34.0-46.0) % Lymphocytes # (1.0-4.8) k/uL PT 13.6 H (9.0-12.0) sec INR 1.3 H (<1.2) Sodium 130 L (137-145) mmol/L Potassium 3.3 L (3.5-5.1) mmol/L Chloride 96 L (98-107) mmol/L BUN 37 H (7-17) mg/dL Creatinine 3.31 H (0.52-1.04) mg/dL Glucose 182 H (74-99) mg/dL POC Glucose (mg/dL) (75-99) mg/dL Calcium 7.6 L (8.4-10.2) mg/dL Total Bilirubin 1.4 H (0.2-1.3) mg/dL AST 1460 H (14-36) U/L ALT 2553 H (4-34) U/L Alkaline Phosphatase 128 H (38-126) U/L Lactate Dehydrogenase 1130 H (313-618) U/L C-Reactive Protein 21.0 H (<10.0) mg/L Total Protein 4.9 L (6.3-8.2) g/dL Albumin 2.5 L (3.5-5.0) g/dL 07/30/20 07/30/20 Range/Units 11:44 16:36 RBC (3.80-5.40) m/uL Hgb (11.4-16.0) gm/dL Hct (34.0-46.0) % Lymphocytes # (1.0-4.8) k/uL PT (9.0-12.0) sec INR (<1.2) Sodium (137-145) mmol/L Potassium (3.5-5.1) mmol/L Chloride (98-107) mmol/L BUN (7-17) mg/dL Creatinine (0.52-1.04) mg/dL Glucose (74-99) mg/dL POC Glucose (mg/dL) 175 H 210 H (75-99) mg/dL Calcium (8.4-10.2) mg/dL Total Bilirubin (0.2-1.3) mg/dL AST (14-36) U/L ALT (4-34) U/L Alkaline Phosphatase (38-126) U/L Lactate Dehydrogenase (313-618) U/L C-Reactive Protein (<10.0) mg/L Total Protein (6.3-8.2) g/dL Albumin (3.5-5.0) g/dL Assessment and Plan Assessment: Acute hypoxic respiratory failure Acute covid 19 pneumonia Bilateral pleural effusion Bilateral basal atelectasis Shortness of breath and cough likely multifactorial related to above Chronic renal failure on hemodialysis Fluid overload Plan: Deep breathing exercise Incentive spirometry Supplemental oxygen Continue steroids Continue IV REMdesivir for 5 days Reviewed ultrasound of the chest bilateral, continue hemodialysis we'll repeat ultrasound in 24-48 hours if there is no significant improvement and pleural effusion is seen than consider doing thoracentesis Continue hemodialysis Fall precautions Further plan of care and management as per clinical response of the patient Time with Patient: Greater than 30
[2020-07-30 20:09] LABS: Glucose,Whole Blood 181 mg/dL (75-99)
[2020-07-31] MEDS: SODIUM CHLORIDE 0.9% 1,000 ML IV SCH (05:17)
[2020-07-31] MEDS: PANTOPRAZOLE 40 MG TABLET PO SCH (05:18)
[2020-07-31] MEDS: LEVOTHYROXINE 100 MCG TAB PO SCH (05:18)
--- NOTE | 2020-07-31 05:44 | PN ---
PROGRESS NOTE DATE OF SERVICE: 07/30/2020 REASON FOR FOLLOWUP: COVID-19 infection. INTERVAL HISTORY: The patient is currently afebrile. The patient was slightly sleepy, lethargic today and did not provide any history. She is requiring high-flow oxygen, currently 4 L. No vomiting or diarrhea per the nursing staff. PHYSICAL EXAMINATION: Blood pressure 150/71 with a pulse of 61, temperature 98.5, she is 91% on 4 L nasal cannula. General description is an elderly female lying in bed in no distress. RESPIRATORY SYSTEM: Unlabored breathing with decreased intensity of breath sounds. No wheeze. HEART: S1, S2. Regular rate and rhythm. ABDOMEN: Soft, no tenderness. LAB: Hemoglobin 8.4, white count 4.5, BUN of 27, creatinine 3.31, elevated liver enzymes. DIAGNOSTIC IMPRESSION AND PLAN: Patient with acute COVID-19 infection in this patient with end-stage renal disease, also with significantly elevated liver enzymes. Does not qualify for remdesivir. The patient is currently on Eliquis, dexamethasone, zinc and ascorbic acid, to continue. Monitor clinical course closely. Prognosis remains to be guarded. MMODL / IJN: [id number] /
[2020-07-31 06:02] LABS: Glucose,Whole Blood 200 mg/dL (75-99)
[2020-07-31] MEDS: INSULIN ASPART (NovoLOG) 100 UNIT/ML VIAL SQ SCH ×4 (06:37→20:21)
--- NOTE | 2020-07-31 11:51 | P.PN ---
Subjective Progress Note Date: 07/31/20 Principal diagnosis: Transaminitis She was seen and examined sitting up in bed. She just underwent hemodialysis. She is denying any abdominal pain, nausea, or vomiting. Today's labs are currently pending. Objective - Vital Signs Vital signs: Vital Signs Temp 98.5 F 07/31/20 04:00 Pulse 60 07/31/20 08:00 Resp 20 07/31/20 08:00 BP 166/79 07/31/20 08:00 Pulse Ox 92 L 07/31/20 08:00 Intake & Output 07/30/20 07/31/20 07/31/20 18:59 06:59 18:59 Intake Total 360 520 118 Output Total 203 Balance 360 317 118 Weight 41.5 kg 42.2 kg Intake: Intake, IV Titration 40 Amount Sodium Chloride 0.9% 1, 40 000 ml @ 20 mls/hr IV . Q24H DORI Rx#:[id number] Oral 360 480 118 Output: Urine 200 Stool 3 Other: Voiding Method Bedpan Bedpan Bedpan Diaper Diaper Diaper # Voids 1 1 - Exam General appearance: The patient is awake and alert, appears in no acute distress. HET: Head is normocephalic and atraumatic. Conjunctiva pink. Sclera anicteric. Neck: Supple without lymphadenopathy. Abdomen: Soft, nontender, nondistended with bowel sounds. No guarding or rigidity. Extremities: Normal skin color and turgor. No pedal edema Skin: No rashes, no jaundice Neurological: No focal deficits. Alert and oriented. - Labs CBC & Chem 7: 07/30/20 07:44 07/30/20 07:44 Labs: Abnormal Lab Results - Last 24 Hours (Table) 07/30/20 07/30/20 07/30/20 Range/Units 07:44 11:44 16:36 POC Glucose (mg/dL) 175 H 210 H (75-99) mg/dL Lactate Dehydrogenase 1130 H (313-618) U/L C-Reactive Protein 21.0 H (<10.0) mg/L 07/30/20 07/31/20 Range/Units 20:08 06:01 POC Glucose (mg/dL) 181 H 200 H (75-99) mg/dL Lactate Dehydrogenase (313-618) U/L C-Reactive Protein (<10.0) mg/L Assessment and Plan (1) Elevated liver enzymes Narrative/Plan: Narrative/Plan: This is an 80-year-old female with multiple medical comorbidities who presented to the hospital for evaluation of altered mental status and mechanical fall. Patient but down for hours prior to presentation. Found to have marked elevation in her liver enzymes on presentation with total bilirubin 2.2, alkaline phosphatase 168, AST 5698 and ALT 4753. No history of liver disease and prior examinations were significant for normal liver enzymes. Ultrasound was abdomen with postcholecystectomy state, with no ductal dilation and medical renal disease noted. Liver enzymes likely multifactorial secondary to hypoperfu glen as well as elevated in the setting of rhabdomyolysis. LFTs have been trending down, today labs are pending. Current Visit: Yes Status: Acute Code(s): R74.8 - ABNORMAL LEVELS OF OTHER SERUM ENZYMES SNOMED Code(s): 858373381 (2) COVID-19 Current Visit: Yes Status: Acute Code(s): U07.1 - COVID-19 SNOMED Code(s): 089140175 Plan: 1. Supportive care 2. Okay for diet as tolerated 3. Continue monitor CBC, BMP, LFTs 4. Ultrasound of the abdomen reviewed 5. No plans for endoscopic evaluation at this time 6. Acute viral hepatitis panel was negative Liver enzymes consistently improving, no further serological workup indicated Thank you for allowing us to participate in the care of the patient Dr. Vzaquez I agree with the dictator's note, documented as a scribe by Elizabeth Leonard.
[2020-07-31 12:03] LABS: Glucose,Whole Blood 192 mg/dL (75-99)
[2020-07-31] MEDS: DEXAMETHASONE SOD PHOSPHATE 10 MG/ML 1 ML VIAL IV SCH (12:22)
[2020-07-31] MEDS: CHOLECALCIFEROL 25 MCG (1000 IU) TABLET PO SCH (12:22)
[2020-07-31] MEDS: ASCORBIC ACID 500 MG TAB PO SCH (12:23)
[2020-07-31] MEDS: APIXABAN 2.5 MG TABLET PO SCH (12:23)
[2020-07-31] MEDS: ISOSORBIDE MONONITRATE ER 30 MG TAB.ER.24H PO SCH (12:23)
[2020-07-31] MEDS: ZINC SULFATE 220 MG CAP PO SCH (12:24)
[2020-07-31] MEDS: PROPRANOLOL 10 MG TAB PO SCH ×2 (12:24→20:21)
[2020-07-31] MEDS: AMIODARONE 100 MG TAB PO SCH (12:25)
[2020-07-31] MEDS ORDERED: IPRATROPIUM-ALBUTEROL 3 ML NEB INHALATION PRN (15:22)
[2020-07-31] MEDS: SYMBICORT 160-4.5 MCG INHALER INHALATION SCH ×2 (16:11→20:08)
[2020-07-31] MEDS: BUDESONIDE 0.5 MG/2 ML NEBU INHALATION SCH ×2 (16:11→20:03)
[2020-07-31 16:39] LABS: HCT 29.9 % (34.0-46.0); HGB 10.3 gm/dL (11.4-16.0); MCH 32.3 pg (25.0-35.0); MCHC 34.3 g/dL (31.0-37.0); MCV 94.2 fL (80.0-100.0); Mean Platelet Volume 7.7; Platelet Count 279 k/uL (150-450); RBC 3.17 m/uL (3.80-5.40); RDW 15.3 % (11.5-15.5); WBC 7.6 k/uL (3.8-10.6)
[2020-07-31 16:51] LABS: Albumin 2.9 g/dL (3.5-5.0); C Reactive Protein 37.2 mg/L (<10.0); Potassium 4.4 mmol/L (3.5-5.1); Total Bilirubin 1.3 mg/dL (0.2-1.3); Total Protein 5.5 g/dL (6.3-8.2)
[2020-07-31 17:07] LABS: Glucose,Whole Blood 300 mg/dL (75-99)
--- NOTE | 2020-07-31 17:11 | P.PN ---
Subjective Progress Note Date: 07/31/20 Principal diagnosis: Acute hypoxic respiratory failure Acute covid 19 pneumonia Bilateral pleural effusion Bilateral basal atelectasis Shortness of breath and cough likely multifactorial related to above Chronic renal failure on hemodialysis Fluid overload 07/31/2020, patient seen nurysrich examined during the rounds labs reviewed medications reviewed slightly more short of breath, remains on 6 L oxygen, status post hemodialysis, prior ultrasound reviewed a repeat another ultrasound if significant fluid is still present consider doing thoracentesis 07/30/2020, patient seen audrey examined has been restless overnight yesterday evening had a long dialysis 2 L of fluid has been removed patient resting now did have a single dose of Ativan IV, oxygen is down to 4 L, ultrasound of the chest performed shows moderate right-sided effusion is small to moderate left- sided effusion This is a pleasant 80-year-old female with chronic renal failure patient is well-known to me for recurrent pleural effusion likely related to fluid overload renal failure and heart failure, patient came into the hospital due to fall and generalized weakness, patient was found to be on floor, on arrival she was noted to have oxygen saturation of just 88% however is 6 L came up to 96%, patient f ound to be covert positive, patient has been started on IV in remdesivir and steroids, still short of breath sats are mid 90s on 6 L nasal cannula, most recent chest x-ray shows bilateral pleural effusion atelectasis and infiltrate Objective - Vital Signs Vital signs: Vital Signs Temp 98.5 F 07/31/20 04:00 Pulse 67 07/31/20 12:00 Resp 14 07/31/20 12:00 BP 178/87 07/31/20 12:00 Pulse Ox 90 L 07/31/20 12:00 Intake & Output 07/30/20 07/31/20 07/31/20 18:59 06:59 18:59 Intake Total 360 520 598 Output Total 203 Balance 360 317 598 Weight 41.5 kg 42.2 kg Intake: Intake, IV Titration 40 Amount Sodium Chloride 0.9% 1, 40 000 ml @ 20 mls/hr IV . Q24H DORI Rx#:[id number] Oral 360 480 598 Output: Urine 200 Stool 3 Other: Voiding Method Bedpan Bedpan Bedpan Diaper Diaper Diaper # Voids 1 1 # Bowel Movements 1 - Exam - Constitutional General appearance: average body habitus, cooperative, disheveled - EENT Eyes: PERRLA Ears: bilateral: normal - Neck Neck: normal ROM Carotids: bilateral: upstroke normal Thyroid: bilateral: normal size - Respiratory Respiratory: bilateral: diminished - Cardiovascular Rhythm: regular Heart sounds: normal: S1, S2 - Gastrointestinal General gastrointestinal: soft - Integumentary Integumentary: normal turgor - Neurologic Neurologic: CNII-XII intact - Musculoskeletal Musculoskeletal: gait normal, generalized weakness, strength equal bilaterally - Psychiatric Psychiatric: A&O x's 3, appropriate affect, intact judgment & insight - Labs CBC & Chem 7: 07/31/20 16:01 07/30/20 07:44 Labs: Abnormal Lab Results - Last 24 Hours (Table) 07/30/20 07/31/20 07/31/20 Range/Units 20:08 06:01 11:50 RBC (3.80-5.40) m/uL Hgb (11.4-16.0) gm/dL Hct (34.0-46.0) % POC Glucose (mg/dL) 181 H 200 H 192 H (75-99) mg/dL 07/31/20 Range/Units 16:01 RBC 3.17 L (3.80-5.40) m/uL Hgb 10.3 L (11.4-16.0) gm/dL Hct 29.9 L (34.0-46.0) % POC Glucose (mg/dL) (75-99) mg/dL Assessment and Plan Assessment: Acute hypoxic respiratory failure Acute covid 19 pneumonia Bilateral pleural effusion Bilateral basal atelectasis Shortness of breath and cough likely multifactorial related to above Chronic renal failure on hemodialysis Fluid overload Plan: Deep breathing exercise Incentive spirometry Supplemental oxygen Continue steroids Continue IV REMdesivir for 5 days Reviewed ultrasound of the chest bilateral, continue hemodialysis we'll repeat ultrasound if there is no significant improvement and pleural effusion is seen than consider doing thoracentesis Continue hemodialysis Fall precautions Further plan of care and management as per clinical response of the patient Time with Patient: Greater than 30
--- NOTE | 2020-07-31 17:58 | PN ---
PROGRESS NOTE An 80-year-old white female with COVID pneumonia. She is saturating 90% on 6 L. Blood pressure is 170/80, respiratory rate 14 to 16, pulse 67, temperature 98.5. She is sleeping a lot of the time. She is obtunded. CARDIOVASCULAR: S1, S2. LUNGS: Scattered rhonchi and wheeze. GI: Soft. HEMATOLOGY: Negative Homans. ASSESSMENT: 1. End-stage dialysis, end-stage renal disease. 2. COVID-19 bilateral pneumonia. 3. Acute hypoxemic respiratory failure secondary to COVID pneumonia. 4. Sepsis secondary to COVID pneumonia. Prognosis extremely guarded. Continue on current treatments including dexamethasone, vitamin C, vitamin D, Eliquis, zinc, possibly add an inhaler of some kind, I will see if I can take an inhaler over there, maybe one of the new steroid inhalers. Prognosis guarded. MMODL / IJN: [id number] /
[2020-07-31 19:46] LABS: Glucose,Whole Blood 246 mg/dL (75-99)
[2020-07-31] MEDS: ALBUTEROL HFA INHALER INHALATION PRN (20:08)
--- NOTE | 2020-07-31 21:41 | CONS ---
CONSULTATION REASON FOR CONSULTATION: End-stage renal disease. HISTORY OF PRESENT ILLNESS: Patient is an 80-year-old female with end-stage renal disease, on hemodialysis on a Wednesday, Wednesday, Wednesday schedule. She was admitted to the hospital as she was found unresponsive at her rehab facility. The patient tested positive for Covid PCR. She had been complaining of nausea and vomiting for 3-4 days prior to admission. She is currently feeling better. The patient states that she does not have much of an appetite, but has not had any diarrhea or abdominal pain. No significant shortness of breath. PAST MEDICAL HISTORY: End-stage renal disease, CKD mineral bone disorder, hypertension, COPD, type 2 diabetes, history of DVT, atrial fibrillation, history of pleural effusions, chronic CHF, history of GI bleed previously. PAST SURGICAL HISTORY: Cholecystectomy, hysterectomy, tonsillectomy, tubal ligation, PermCath placement, EGD, colonoscopy, bowel surgery for obstruction, cataract surgeries. MEDICATIONS: Medications prior to admission include: Lipitor, Protonix, Ozempic, Aranesp, Nephro- Rosario, Eliquis, Cordarone, Imdur, Synthroid, Inderal, Norvasc, Cozaar, and hydralazine. ALLERGIES: INCLUDE PENICILLIN, CODEINE BOTH CAUSE RASH AND HIVES, ERYTHROMYCIN, IV CONTRAST, LODINE, LATEX, SULFA, AND TETRACYCLINES CAUSE RASH AND HIVES. ALSO ALLERGIC TO ASPIRIN. TETANUS SHOT AND BENADRYL. REVIEW OF SYSTEMS: As per HPI. Other systems negative. PHYSICAL EXAMINATION: The patient is currently comfortable, awake. She is seen on dialysis, tolerating her treatment well. Blood pressure was 154/86, heart rate 60 per minute. She is afebrile. Examination shows no evidence of edema lower extremities. ABDOMEN: Soft, nontender. CUT OFF SAW GRADER exam grossly intact. LAB: From yesterday show sodium 130, potassium 3.3, BUN 37, creatinine 3.3, hemoglobin 8.6 g/dL. ASSESSMENT: 1. End-stage renal disease, on hemodialysis on a Wednesday, Wednesday, Wednesday schedule. 2. COVID-19 pneumonia with bilateral pulmonary infiltrates, being followed by ID. The patient did not receive Remdesivir secondary to elevated liver enzymes. 3. Congestive heart failure/volume overload currently improved as compared to 1 week ago. 4. Severely dilated left atrium on recent echocardiogram with moderate to severe aortic stenosis and moderate to severe pulmonary hypertension with EF 50-55 percent. PLAN: Continue current antihypertensive medications. Continue Decadron and add phosphate binders. Encourage increased oral intake. Continue Aranesp for anemia as well. Thank you for this consultation. We will continue to follow the patient with you during her hospitalization. MMODL / IJN: [id number] /
--- NOTE | 2020-07-31 22:23 | PN ---
PROGRESS NOTE DATE OF SERVICE: 07/31/2020 REASON FOR FOLLOWUP: Covid 19 pneumonia. INTERVAL HISTORY: The patient is currently afebrile. Patient is breathing comfortably. The patient is sleepy, lethargic, unable to provide any history. Requiring high-flow oxygen. No vomiting, diarrhea or any other changes reported by nursing staff. PHYSICAL EXAMINATION: Blood pressure 125/64, pulse of 82, temperature 97.4. She is 90% on 10 L nasal cannula. General description is an elderly female lying in bed in no distress. Respiratory system: Unlabored breathing, decreased intensity of breath sounds. No wheeze. HEART: S1, S2. Regular rate and rhythm. ABDOMEN soft, no tenderness. LABS: Hemoglobin is 10.7, white count 7.6, BUN of 25, creatinine is 2.78. Liver enzymes have improved. DIAGNOSTIC IMPRESSION AND PLAN: Patient with acute COVID-19 infection in this patient with evidence of significant elevated liver enzymes, not a candidate for Remdesivir. The patient is currently on dexamethasone, zinc, Eliquis, ascorbic acid, to continue and monitor clinical course closely. MMODL / IJN: [id number] /
--- NOTE | 2020-07-31 23:29 | US ---
EXAMINATION TYPE: US chest DATE OF EXAM: 07/31/2020 COMPARISON: NONE CLINICAL HISTORY: for markings of fluid. Pleural effusion TECHNIQUE: Targeted ultrasound of the posterior lower bilateral hemithoraces EXAM MEASUREMENTS: Right Pleural Effusion pocket size: 1.5 cm Right skin surface to fluid distance: 1.6 cm Left Pleural Effusion pocket size: 6.5 cm Left skin surface to fluid distance: 1.4 cm Lung tissue visualized 1.2 cm in fluid pocket. Left side was still marked from previous exam. Left side marked for possible thoracentesis outside the dept. Pulmonologists are able to review the images in the patient?s EMR. IMPRESSIONS: Bilateral pleural effusions are demonstrated and larger on the left side.
[2020-08-01] MEDS: LORazepam 2 MG/ML INJ IV PRN ×2 (00:57→10:32)
[2020-08-01] MEDS: PANTOPRAZOLE 40 MG TABLET PO SCH (05:01)
[2020-08-01] MEDS: SODIUM CHLORIDE 0.9% 1,000 ML IV SCH (05:01)
[2020-08-01] MEDS: LEVOTHYROXINE 100 MCG TAB PO SCH (05:01)
[2020-08-01 06:05] LABS: Glucose,Whole Blood 111 mg/dL (75-99)
[2020-08-01] MEDS: INSULIN ASPART (NovoLOG) 100 UNIT/ML VIAL SQ SCH ×4 (06:11→20:09)
[2020-08-01 06:50] LABS: Basophils % (A) 0 %; Eosinophils % (A) 0 %; HCT 32.2 % (34.0-46.0); HGB 10.8 gm/dL (11.4-16.0); Lymphocytes # (A) 0.3 k/uL (1.0-4.8); Lymphocytes % (A) 3 %; MCH 31.4 pg (25.0-35.0); MCHC 33.6 g/dL (31.0-37.0); MCV 93.4 fL (80.0-100.0); Mean Platelet Volume 8.1; Monocytes # (A) 0.4 k/uL (0-1.0); Monocytes % (A) 5 %; Neutrophils # (A) 7.7 k/uL (1.3-7.7); Neutrophils % (A) 90 %; Platelet Count 201 k/uL (150-450); RBC 3.45 m/uL (3.80-5.40); RDW 15.2 % (11.5-15.5); WBC 8.5 k/uL (3.8-10.6)
[2020-08-01 07:05] LABS: Albumin 2.8 g/dL (3.5-5.0); Calcium 8.3 mg/dL (8.4-10.2); Potassium 4.3 mmol/L (3.5-5.1); Total Bilirubin 1.3 mg/dL (0.2-1.3); Total Protein 5.5 g/dL (6.3-8.2)
[2020-08-01] MEDS: SYMBICORT 160-4.5 MCG INHALER INHALATION SCH ×2 (08:59→20:40)
[2020-08-01] MEDS: ALBUTEROL HFA INHALER INHALATION PRN ×2 (08:59→20:45)
[2020-08-01] MEDS: BUDESONIDE 0.5 MG/2 ML NEBU INHALATION SCH ×2 (09:00→20:40)
[2020-08-01] MEDS: DEXAMETHASONE SOD PHOSPHATE 10 MG/ML 1 ML VIAL IV SCH (09:15)
[2020-08-01] MEDS: CHOLECALCIFEROL 25 MCG (1000 IU) TABLET PO SCH ×2 (09:47→09:54)
[2020-08-01] MEDS: ASCORBIC ACID 500 MG TAB PO SCH ×2 (09:47→09:54)
[2020-08-01] MEDS: ISOSORBIDE MONONITRATE ER 30 MG TAB.ER.24H PO SCH (09:48)
[2020-08-01] MEDS: ZINC SULFATE 220 MG CAP PO SCH ×2 (09:48→09:55)
[2020-08-01] MEDS: PROPRANOLOL 10 MG TAB PO SCH ×3 (09:48→20:00)
[2020-08-01] MEDS: AMIODARONE 100 MG TAB PO SCH ×2 (09:48→09:54)
[2020-08-01 12:06] LABS: Glucose,Whole Blood 135 mg/dL (75-99)
--- NOTE | 2020-08-01 13:24 | CDI ---
Documentation Clarification Form 2nd Request Date: 07/30/2020 05:33:00 PM From: Gavi Chacon RN, CCDS Admit Date: 07/28/2020 01:16:00 AM Patient Name: Page Travis Visit Number: [id number] ATTENTION: The Clinical Documentation Specialists (CDI) and [facility] Coding Staff appreciate your assistance in clarifying documentation. Please respond to the clarification below the line at the bottom and electronically sign. The CDI & [facility] Coding staff will review the response and follow-up if needed. Please note: Queries are made part of the Legal Health Record. If you have any questions, please contact the author of this message via ITS. Dr. Alexander Sarkar Patient has a documented BMI of 16.7]. Additional clarification of clinical significance is requested. History/Risk Factors: ESRD on HD, chronic diastolic CHF, Covid 19 pneumonia, HTN, HLD, COPD Clinical Indicators: Patients weight is 41.5 Kg Patients height is 62 in. Calculated BMI is 16.7kg/m2 07/29 Pulmonary Consult: "patient came into the hospital due to fall and generalized weakness." Treatments: Dietary Consult completed 07/30 Supplements: Glucerna TID Please clarify, is there is an additional diagnosis that is clinically appropriate for this patient? Cachexia Moderate Protein calorie Malnutrition Severe Protein Calorie Malnutrition Other, please specify Unable to determine (Template Last Revised: May 2020) MTDD
--- NOTE | 2020-08-01 14:18 | P.PN ---
Subjective Progress Note Date: 08/01/20 Principal diagnosis: Transaminitis Patient was seen and examined lying in bed. She is now on BiPAP. She denies any abdominal pain, nausea, or vomiting. LFTs continued to trend down. Objective - Vital Signs Vital signs: Vital Signs Temp 98.8 F 08/01/20 03:39 Pulse 70 08/01/20 03:39 Resp 24 08/01/20 03:39 BP 159/92 08/01/20 03:39 Pulse Ox 95 08/01/20 03:39 Intake & Output 07/31/20 08/01/20 08/01/20 18:59 06:59 18:59 Intake Total 716 240 0 Output Total 1999 05 Balance -1284 238 0 Weight 59.5 kg Intake: Oral 716 240 0 Output: Stool 2 Hemodialysis 1999 Other: Voiding Method Bedpan Bedpan Diaper Diaper # Voids 1 # Bowel Movements 1 0 - Exam General appearance: The patient is awake and alert, appears in no acute distress. On bipap HET: Head is normocephalic and atraumatic. Conjunctiva pink. Sclera anicteric. Neck: Supple without lymphadenopathy. Abdomen: Soft, nontender, nondistended with bowel sounds. No guarding or rigidity. Extremities: Normal skin color and turgor. No pedal edema Skin: No rashes, no jaundice Neurological: No focal deficits. Alert and oriented. - Labs CBC & Chem 7: 08/01/20 05:29 08/01/20 05:29 Labs: Abnormal Lab Results - Last 24 Hours (Table) 07/31/20 07/31/20 07/31/20 Range/Units 11:50 16:01 16:01 RBC 3.17 L (3.80-5.40) m/uL Hgb 10.3 L (11.4-16.0) gm/dL Hct 29.9 L (34.0-46.0) % Lymphocytes # (1.0-4.8) k/uL Sodium 128 L (137-145) mmol/L Chloride 94 L (98-107) mmol/L BUN 25 H (7-17) mg/dL Creatinine 2.78 H (0.52-1.04) mg/dL Glucose 301 H (74-99) mg/dL POC Glucose (mg/dL) 192 H (75-99) mg/dL Calcium 8.0 L (8.4-10.2) mg/dL AST 536 H (14-36) U/L ALT 1707 H (4-34) U/L Alkaline Phosphatase 181 H (38-126) U/L Lactate Dehydrogenase 1084 H (313-618) U/L C-Reactive Protein 37.2 H (<10.0) mg/L Total Protein 5.5 L (6.3-8.2) g/dL Albumin 2.9 L (3.5-5.0) g/dL 07/31/20 07/31/20 08/01/20 Range/Units 16:40 19:39 05:29 RBC 3.45 L (3.80-5.40) m/uL Hgb 10.8 L (11.4-16.0) gm/dL Hct 32.2 L (34.0-46.0) % Lymphocytes # 0.3 L (1.0-4.8) k/uL Sodium (137-145) mmol/L Chloride (98-107) mmol/L BUN (7-17) mg/dL Creatinine (0.52-1.04) mg/dL Glucose (74-99) mg/dL POC Glucose (mg/dL) 300 H 246 H (75-99) mg/dL Calcium (8.4-10.2) mg/dL AST (14-36) U/L ALT (4-34) U/L Alkaline Phosphatase (38-126) U/L Lactate Dehydrogenase (313-618) U/L C-Reactive Protein (<10.0) mg/L Total Protein (6.3-8.2) g/dL Albumin (3.5-5.0) g/dL 08/01/20 08/01/20 Range/Units 05:29 06:03 RBC (3.80-5.40) m/uL Hgb (11.4-16.0) gm/dL Hct (34.0-46.0) % Lymphocytes # (1.0-4.8) k/uL Sodium 128 L (137-145) mmol/L Chloride 93 L (98-107) mmol/L BUN 37 H (7-17) mg/dL Creatinine 3.49 H (0.52-1.04) mg/dL Glucose (74-99) mg/dL POC Glucose (mg/dL) 111 H (75-99) mg/dL Calcium 8.3 L (8.4-10.2) mg/dL AST 357 H (14-36) U/L ALT 1431 H (4-34) U/L Alkaline Phosphatase 139 H (38-126) U/L Lactate Dehydrogenase (313-618) U/L C-Reactive Protein (<10.0) mg/L Total Protein 5.5 L (6.3-8.2) g/dL Albumin 2.8 L (3.5-5.0) g/dL Assessment and Plan (1) Elevated liver enzymes Narrative/Plan: Narrative/Plan: This is an 80-year-old female with multiple medical comorbidities who presented to the hospital for evaluation of altered mental status and mechanical fall. Patient but down for hours prior to presentation. Found to have marked elevation in her liver enzymes on presentation with total bilirubin 2.2, alkaline phosphatase 168, AST 5698 and ALT 4753. No history of liver disease and prior examinations were significant for normal liver enzymes. Ultrasound was abdomen with postcholecystectomy state, with no ductal dilation and medical renal disease noted. Liver enzymes likely multifactorial secondary to hypoperfusion as well as elevated in the setting of rhabdomyolysis. LFTs have been trending down, today's labs total bilirubin 1.3, alkaline phosphatase 139, AST 357, ALT 1431 Current Visit: Yes Status: Acute Code(s): R74.8 - ABNORMAL LEVELS OF OTHER SERUM ENZYMES SNOMED Code(s): 135070888 (2) COVID-19 Current Visit: Yes Status: Acute Code(s): U07.1 - COVID-19 SNOMED Code(s): 708130833 Plan: 1. Supportive care 2. Okay for diet as tolerated 3. Continue monitor CBC, BMP, LFTs 4. Ultrasound of the abdomen reviewed 5. No plans for endoscopic evaluation at this time 6. Acute viral hepatitis panel was negative 7. Liver enzymes consistently improving, no further serological workup indicated Recommend outpatient labs for continued monitoring of trending of LFTs PICU for this consultation, we will remain on standby Dr. Vazquez I agree with the dictator's note, documented as a scribe by Elizabeth Leonard.
--- NOTE | 2020-08-01 14:29 | P.PN ---
Subjective Progress Note Date: 08/01/20 Principal diagnosis: Acute hypoxic respiratory failure Acute covid 19 pneumonia Bilateral pleural effusion Bilateral basal atelectasis Shortness of breath and cough likely multifactorial related to above Chronic renal failure on hemodialysis Fluid overload 08/01/2020, patient seen eval examined remains short of breath, just has been placed on BiPAP due to consistent hypoxia, ultrasound of the chest has been reviewed on the right side there is minimal effusion, left side is small effusion of 6.5 cm seen, would recommend continuation on dialysis with negative fluid balance as thoracentesis will carry are more complication, T-max is 99, respiratory rate slightly 5 today on 70% BiPAP saturation is 93% 07/31/2020, patient seen eval examined during the rounds labs reviewed medications reviewed slightly more short of breath, remains on 6 L oxygen, status post hemodialysis, prior ultrasound reviewed a repeat another ultrasound if significant fluid is still present consider doing thoracentesis 07/30/2020, patient seen eval examined has been restless overnight yesterday evening had a long dialysis 2 L of fluid has been removed patient resting now did have a single dose of Ativan IV, oxygen is down to 4 L, ultrasound of the chest performed shows moderate right-sided effusion is small to moderate left- sided effusion This is a pleasant 80-year-old female with chronic renal failure patient is well-known to me for recurrent pleural effusion likely related to fluid overload renal failure and heart failure, patient came into the hospital due to fall and generalized weakness, patient was found to be on floor, on arrival she was noted to have oxygen saturation of just 88% however is 6 L came up to 96%, patient found to be covert positive, patient has been started on IV in remdesivir and steroids, still short of breath sats are mid 90s on 6 L nasal cannula, most recent chest x-ray shows bilateral pleural effusion atelectasis and infiltrate Objective - Vital Signs Vital signs: Vital Signs Temp 99.8 F H 08/01/20 11:45 Pulse 76 08/01/20 11:45 Resp 28 H 08/01/20 11:45 BP 173/85 08/01/20 11:45 Pulse Ox 93 L 08/01/20 11:45 Intake & Output 07/31/20 08/01/20 08/01/20 18:59 06:59 18:59 Intake Total 716 240 0 Output Total 1999 2 Balance -1284 238 0 Weight 59.5 kg Intake: Oral 716 240 0 Output: Stool 2 Hemodialysis 1999 Other: Voiding Method Bedpan Bedpan Diaper Diaper # Voids 1 # Bowel Movements 1 0 - Exam - Constitutional General appearance: average body habitus, cooperative, disheveled - EENT Eyes: PERRLA Ears: bilateral: normal - Neck Neck: normal ROM Carotids: bilateral: upstroke normal Thyroid: bilateral: normal size - Respiratory Respiratory: bilateral: diminished - Cardiovascular Rhythm: regular Heart sounds: normal: S1, S2 - Gastrointestinal General gastrointestinal: soft - Integumentary Integumentary: normal turgor - Neurologic Neurologic: CNII-XII intact - Musculoskeletal Musculoskeletal: gait normal, generalized weakness, strength equal bilaterally - Psychiatric Psychiatric: A&O x's 3, appropriate affect, intact judgment & insight - Labs CBC & Chem 7: 08/01/20 05:29 08/01/20 05:29 Labs: Abnormal Lab Results - Last 24 Hours (Table) 07/31/20 07/31/20 07/31/20 Range/Units 16:01 16:01 16:40 RBC 3.17 L (3.80-5.40) m/uL Hgb 10.3 L (11.4-16.0) gm/dL Hct 29.9 L (34.0-46.0) % Lymphocytes # (1.0-4.8) k/uL Sodium 128 L (137-145) mmol/L Chloride 94 L (98-107) mmol/L BUN 25 H (7-17) mg/dL Creatinine 2.78 H (0.52-1.04) mg/dL Glucose 301 H (74-99) mg/dL POC Glucose (mg/dL) 300 H (75-99) mg/dL Calcium 8.0 L (8.4-10.2) mg/dL AST 536 H (14-36) U/L ALT 1707 H (4-34) U/L Alkaline Phosphatase 181 H (38-126) U/L Lactate Dehydrogenase 1084 H (313-618) U/L C-Reactive Protein 37.2 H (<10.0) mg/L Total Protein 5.5 L (6.3-8.2) g/dL Albumin 2.9 L (3.5-5.0) g/dL 04/07/21 04/08/21 04/08/21 Range/Units 19:39 05:29 05:29 RBC 3.45 L (3.80-5.40) m/uL Hgb 10.8 L (11.4-16.0) gm/dL Hct 32.2 L (34.0-46.0) % Lymphocytes # 0.3 L (1.0-4.8) k/uL Sodium 128 L (137-145) mmol/L Chloride 93 L (98-107) mmol/L BUN 37 H (7-17) mg/dL Creatinine 3.49 H (0.52-1.04) mg/dL Glucose (74-99) mg/dL POC Glucose (mg/dL) 246 H (75-99) mg/dL Calcium 8.3 L (8.4-10.2) mg/dL AST 357 H (14-36) U/L ALT 1431 H (4-34) U/L Alkaline Phosphatase 139 H (38-126) U/L Lactate Dehydrogenase (313-618) U/L C-Reactive Protein (<10.0) mg/L Total Protein 5.5 L (6.3-8.2) g/dL Albumin 2.8 L (3.5-5.0) g/dL 08/01/20 08/01/20 Range/Units 06:03 11:56 RBC (3.80-5.40) m/uL Hgb (11.4-16.0) gm/dL Hct (34.0-46.0) % Lymphocytes # (1.0-4.8) k/uL Sodium (137-145) mmol/L Chloride (98-107) mmol/L BUN (7-17) mg/dL Creatinine (0.52-1.04) mg/dL Glucose (74-99) mg/dL POC Glucose (mg/dL) 111 H 135 H (75-99) mg/dL Calcium (8.4-10.2) mg/dL AST (14-36) U/L ALT (4-34) U/L Alkaline Phosphatase (38-126) U/L Lactate Dehydrogenase (313-618) U/L C-Reactive Protein (<10.0) mg/L Total Protein (6.3-8.2) g/dL Albumin (3.5-5.0) g/dL Assessment and Plan Assessment: Acute hypoxic respiratory failure with worsening respiratory status due to acute Covid 19 pneumonia Acute covid 19 pneumonia Bilateral pleural effusion Bilateral basal atelectasis Shortness of breath and cough likely multifactorial related to above Chronic renal failure on hemodialysis Fluid overload Plan: We'll resume Eliquis Chest x-ray Deep breathing exercise Incentive spirometry Supplemental oxygen Continue steroids No plans for thoracentesis on the left side as effusion small hiatal likelihood of complication Continue hemodialysis Fall precautions Further plan of care and management as per clinical response of the patient Time with Patient: Greater than 30
[2020-08-01 16:33] LABS: Glucose,Whole Blood 136 mg/dL (75-99)
--- NOTE | 2020-08-01 17:15 | PN ---
PROGRESS NOTE Patient is seen for followup for end-stage renal disease. She is currently maintained on BiPAP. The patient is confused. She has had a temperature of 100.1 degrees Fahrenheit. On examination today, blood pressure was 173/85, heart rate 76 per minute. Heart and lungs are not examined. Examination of lower extremities shows no significant edema. FAMILY THERAPIST exam shows patient moving all 4 extremities, but she is confused. Labs show sodium 128, potassium 4.3, chloride 93, BUN 37, creatinine 3.49, hemoglobin 10.8 g/dL. ASSESSMENT: 1. End-stage renal disease, on hemodialysis on a Wednesday, Wednesday, Wednesday schedule. 2. COVID-19 pneumonia. 3. Acute hypoxic respiratory failure secondary to COVID pneumonia. 4. Mild fluid overload initially, currently significantly improved. 5. Anemia of chronic disease. 6. Chronic kidney disease mineral bone disorder. PLAN: Hemodialysis in a.m. We will use a higher sodium bath due to mild hyponatremia. Continue management of COVID pneumonia as per Pulmonology. MMODL / IJN: [id number] /
--- NOTE | 2020-08-01 18:07 | PN ---
PROGRESS NOTE DATE OF SERVICE: 08/01/2020 REASON FOR FOLLOWUP: COVID-19 infection. INTERVAL HISTORY: The patient did spike a fever of 100.1 this morning. The patient was slightly sleepy, lethargic on the BiPAP. Undergoing dialysis at time of evaluation. She was unable to provide any history. No vomiting or diarrhea or other changes reported by the nursing staff. PHYSICAL EXAMINATION: Blood pressure 151/78 with a pulse of 54, temperature 98.9. She is 92% on BiPAP. General description is an elderly female lying in bed in no distress. RESPIRATORY SYSTEM: Unlabored breathing with decreased intensity of breath sounds. No wheeze. HEART: S1, S2. Regular rate and rhythm. ABDOMEN: Soft. No tenderness. LABS: Hemoglobin is 10.3, white count 8.5. ALT today is 1431. DIAGNOSTIC IMPRESSION AND PLAN: Patient with acute COVID-19 infection her kidney function, elevated liver enzymes. She was not a candidate for any remdesivir. She has been treated with dexamethasone, Eliquis, zinc and ascorbic acid; to continue while monitoring her clinical course closely. Will repeat her x-ray and inflammatory markers tomorrow. Continue with supportive care. MMODL / IJN: [id number] /
[2020-08-01] MEDS: ACETAMINOPHEN TAB 325 MG TAB PO PRN (19:59)
[2020-08-01] MEDS: APIXABAN 2.5 MG TABLET PO SCH (20:00)
[2020-08-01 20:21] LABS: Glucose,Whole Blood 171 mg/dL (75-99)
[2020-08-02 05:47] LABS: Glucose,Whole Blood 141 mg/dL (75-99)
[2020-08-02] MEDS: PANTOPRAZOLE 40 MG TABLET PO SCH (05:59)
[2020-08-02] MEDS: SODIUM CHLORIDE 0.9% 1,000 ML IV SCH (05:59)
[2020-08-02] MEDS: LEVOTHYROXINE 100 MCG TAB PO SCH (05:59)
[2020-08-02] MEDS: INSULIN ASPART (NovoLOG) 100 UNIT/ML VIAL SQ SCH ×4 (06:00→20:52)
[2020-08-02] MEDS: SYMBICORT 160-4.5 MCG INHALER INHALATION SCH ×2 (08:01→20:18)
[2020-08-02] MEDS: BUDESONIDE 0.5 MG/2 ML NEBU INHALATION SCH ×2 (08:02→20:18)
[2020-08-02] MEDS: DEXAMETHASONE SOD PHOSPHATE 10 MG/ML 1 ML VIAL IV SCH (08:33)
[2020-08-02] MEDS: LORazepam 2 MG/ML INJ IV PRN (08:34)
--- NOTE | 2020-08-02 08:49 | XR ---
EXAMINATION TYPE: XR chest 1V DATE OF EXAM: 08/02/2020 COMPARISON: 07/27/2020 HISTORY: Shortness of breath TECHNIQUE: Single frontal view of the chest is obtained. FINDINGS: Dialysis catheter noted. Bilateral areas of infiltrate with consolidation and pleural effu glen. No pneumothorax. Heart size stable. Diffuse osteopenia and arthropathy of the shoulders IMPRESSION: Progressive diffuse bilateral infiltrate with pleural effusion
--- NOTE | 2020-08-02 10:30 | P.PN ---
Subjective Progress Note Date: 08/02/20 Principal diagnosis: Transaminitis Seen and examined lying in bed on BiPAP. She is currently getting hemodialysis. Liver enzymes have been trending down. Today's labs are pending. She denies any nausea, vomiting or abdominal pain. Objective - Vital Signs Vital signs: Vital Signs Temp 100.5 F H 08/02/20 09:23 Pulse 74 08/02/20 09:23 Resp 23 08/02/20 09:23 BP 134/66 08/02/20 09:23 Pulse Ox 96 08/02/20 09:23 Intake & Output 08/01/20 08/02/20 08/02/20 18:59 06:59 18:59 Intake Total 0 Output Total 2 Balance 0 -2 Weight 60.5 kg Intake: IV 0 0.9 0 Oral 0 Output: Stool 2 Other: Voiding Method Bedpan Diaper # Bowel Movements 0 - Exam General appearance: The patient is awake and alert, appears in no acute distress. On bipap HET: Head is normocephalic and atraumatic. Conjunctiva pink. Sclera anicteric. Neck: Supple without lymphadenopathy. Abdomen: Soft, nontender, nondistended with bowel sounds. No guarding or rigidity. Extremities: Normal skin color and turgor. No pedal edema Skin: No rashes, no jaundice Neurological: No focal deficits. Alert and oriented. - Labs CBC & Chem 7: 08/01/20 05:29 08/01/20 05:29 Labs: Abnormal Lab Results - Last 24 Hours (Table) 08/01/20 08/01/20 08/01/20 Range/Units 11:56 16:31 20:01 POC Glucose (mg/dL) 135 H 136 H 171 H (75-99) mg/dL 08/02/20 Range/Units 05:46 POC Glucose (mg/dL) 141 H (75-99) mg/dL Assessment and Plan (1) Elevated liver enzymes Narrative/Plan: Narrative/Plan: This is an 80-year-old female with multiple medical comorbidities who presented to the hospital for evaluation of altered mental status and mechanical fall. Patient but down for hours prior to presentation. Found to have marked elevation in her liver enzymes on presentation with total bilirubin 2.2, alkaline phosphatase 168, AST 5698 and ALT 4753. No history of liver disease and prior examinations were significant for normal liver enzymes. Ultrasound was abdomen with postcholecystectomy state, with no ductal dilation and medical renal disease noted. Liver enzymes likely multifactorial secondary to hypoperfusion as well as elevated in the setting of rhabdomyolysis. LFTs continue to trend down Current Visit: Yes Status: Acute Code(s): R74.8 - ABNORMAL LEVELS OF OTHER SERUM ENZYMES SNOMED Code(s): 139469938 (2) COVID-19 Current Visit: Yes Status: Acute Code(s): U07.1 - COVID-19 SNOMED Code(s): 252621381 Plan: 1. Supportive care 2. Okay for diet as tolerated 3. Continue monitor CBC, BMP, LFTs 4. Ultrasound of the abdomen reviewed 5. No plans for endoscopic evaluation at this time 6. Acute viral hepatitis panel was negative 7. Liver enzymes consistently improving, no further serological workup indicated Recommend outpatient labs for continued monitoring of trending of LFTs Thank you for this consultation, we will remain on standby Dr. Vazquez I agree with the dictator's note, documented as a scribe by Elizabeth Leonard.
[2020-08-02 11:37] LABS: Glucose,Whole Blood 110 mg/dL (75-99)
[2020-08-02] MEDS: APIXABAN 2.5 MG TABLET PO SCH ×2 (12:57→21:57)
[2020-08-02] MEDS: ISOSORBIDE MONONITRATE ER 30 MG TAB.ER.24H PO SCH (12:57)
[2020-08-02] MEDS: PROPRANOLOL 10 MG TAB PO SCH ×2 (12:57→21:57)
[2020-08-02] MEDS: ASCORBIC ACID 500 MG TAB PO SCH (12:57)
[2020-08-02] MEDS: ZINC SULFATE 220 MG CAP PO SCH (12:57)
[2020-08-02] MEDS: CHOLECALCIFEROL 25 MCG (1000 IU) TABLET PO SCH (12:57)
[2020-08-02] MEDS: AMIODARONE 100 MG TAB PO SCH (12:59)
[2020-08-02 13:47] VITALS: BMI 24.3
[2020-08-02] MEDS: ALBUTEROL HFA INHALER INHALATION PRN (15:17)
[2020-08-02 16:42] LABS: Glucose,Whole Blood 162 mg/dL (75-99)
--- NOTE | 2020-08-02 17:47 | PN ---
PROGRESS NOTE Patient remains severely hypoxic, on BiPAP 60% to 75%. She does answer questions. Liver enzymes have been trending down. She remains on BiPAP. She has had no oral nutrition. CARDIOVASCULAR: S1, S2. LUNGS: Scattered rhonchi and wheeze. Decreased skin turgor. BUN is 37, creatinine 3.49. Glucose in mid 100s. ASSESSMENT: 1. Elevated liver enzymes. 2. COVID pneumonia. 3. Acute hypoxemic respiratory failure. 4. End-stage renal disease. Continue current treatment. She is not a candidate for remdesivir. Possible Actemra treatment. Continue monitoring her on the mask BiPAP Dr. Reynoso's recommendation to help with her COVID-19. Prognosis extremely guarded. Dialysis p.r.n. from renal physician. MMODL / IJN: [id number] /
--- NOTE | 2020-08-02 18:01 | P.PN ---
Subjective Progress Note Date: 08/02/20 Principal diagnosis: Acute hypoxic respiratory failure Acute covid 19 pneumonia Bilateral pleural effusion Bilateral basal atelectasis Shortness of breath and cough likely multifactorial related to above Chronic renal failure on hemodialysis Fluid overload 08/02/2020, patient seen eval reexamined during the rounds somnolent but arousable denies any chest pain, remains on high flow oxygen alternating with BiPAP 15/10 and 50% oxygen throughout the day, patient has a dialysis more than 2 L have been removed, chest x-ray continued to show bilateral infiltrate along with effusion 08/01/2020, patient seen eval examined remains short of breath, just has been placed on BiPAP due to consistent hypoxia, ultrasound of the chest has been reviewed on the right side there is minimal effusion, left side is small effusion of 6.5 cm seen, would recommend continuation on dialysis with negative fluid balance as thoracentesis will carry are more complication, T-max is 99, respiratory rate slightly 5 today on 70% BiPAP saturation is 93% 07/31/2020, patient seen eval examined during the rounds labs reviewed medications reviewed slightly more short of breath, remains on 6 L oxygen, status post hemodialysis, prior ultrasound reviewed a repeat another ultrasound if significant fluid is still present consider doing thoracentesis 07/30/2020, patient seen eval examined has been restless overnight yesterday evening had a long dialysis 2 L of fluid has been removed patient resting now did have a single dose of Ativan IV, oxygen is down to 4 L, ultrasound of the chest performed shows moderate right-sided effusion is small to moderate left- sided effusion This is a pleasant 80-year-old female with chronic renal failure patient is well-known to me for recurrent pleural effusion likely related to fluid overload renal failure and heart failure, patient came into the hospital due to fall and generalized weakness, patient was found to be on floor, on arrival she was noted to have oxygen saturation of just 88% however is 6 L came up to 96%, patient found to be covert positive, patient has been started on IV in remdesivir and steroids, still short of breath sats are mid 90s on 6 L nasal cannula, most recent chest x-ray shows bilateral pleural effusion atelectasis and infiltrate Objective - Vital Signs Vital signs: Vital Signs Temp 99.0 F 08/02/20 13:03 Pulse 74 08/02/20 13:03 Resp 22 08/02/20 13:03 BP 136/65 08/02/20 13:03 Pulse Ox 88 L 08/02/20 12:14 Intake & Output 08/01/20 08/02/20 08/02/20 18:59 06:59 18:59 Intake Total 0 Output Total 2 1999 Balance 0 -2 -1999 Weight 60.5 kg 60.5 kg Intake: IV 0 0.9 0 Oral 0 Output: Stool 2 Hemodialysis 1999 Other: Voiding Method Bedpan Diaper # Voids 1 # Bowel Movements 0 - Exam - Constitutional General appearance: average body habitus, cooperative, disheveled - EENT Eyes: PERRLA Ears: bilateral: normal - Neck Neck: normal ROM Carotids: bilateral: upstroke normal Thyroid: bilateral: normal size - Respiratory Respiratory: bilateral: diminished - Cardiovascular Rhythm: regular Heart sounds: normal: S1, S2 - Gastrointestinal General gastrointestinal: soft - Integumentary Integumentary: normal turgor - Neurologic Neurologic: CNII-XII intact - Musculoskeletal Musculoskeletal: gait normal, generalized weakness, strength equal bilaterally - Psychiatric Psychiatric: A&O x's 3, appropriate affect, intact judgment & insight - Labs CBC & Chem 7: 08/01/20 05:29 08/01/20 05:29 Labs: Abnormal Lab Results - Last 24 Hours (Table) 08/01/20 08/02/20 08/02/20 Range/Units 20:01 05:46 11:35 POC Glucose (mg/dL) 171 H 141 H 110 H (75-99) mg/dL 08/02/20 Range/Units 16:40 POC Glucose (mg/dL) 162 H (75-99) mg/dL Assessment and Plan Assessment: Acute hypoxic respiratory failure with worsening respiratory status due to acute Covid 19 pneumonia Acute covid 19 pneumonia Bilateral pleural effusion Bilateral basal atelectasis Shortness of breath and cough likely multifactorial related to above Chronic renal failure on hemodialysis Fluid overload Plan: BiPAP support Continue Eliquis Chest x-ray Deep breathing exercise Incentive spirometry Supplemental oxygen Continue steroids No plans for thoracentesis on the left side as effusion small hiatal likelihood of complication Continue hemodialysis Fall precautions Further plan of care and management as per clinical response of the patient Overall prognosis very guarded Time with Patient: Greater than 30
[2020-08-02] MEDS ORDERED: ACETAMINOPHEN IV (For NPO) 1,000 MG in EMPTY BAG 1 BAG IVPB ONE (20:00)
[2020-08-02 20:04] LABS: Glucose,Whole Blood 231 mg/dL (75-99)
--- NOTE | 2020-08-02 20:10 | PN ---
PROGRESS NOTE Patient is seen for followup for end-stage renal disease. She currently has COVID pneumonia and acute hypoxic respiratory failure. Patient has been confused and currently is maintained on BiPAP. Patient is currently seen on dialysis. She is tolerating her treatment well. We are trying for about 2 L of ultrafiltration. PHYSICAL EXAMINATION: On examination today, patient has had a temperature 100.5 degrees, blood pressure 134/66, heart rate 74 per minute. She is afebrile. Examination of shows no significant edema of lower extremities. Abdomen is soft, nontender. Patient is confused, currently on BiPAP. She is moving all 4 extremities. LABS: Labs from yesterday show sodium 128, potassium 4.3. ALT and AST elevated but decreasing. ASSESSMENT: 1. End-stage renal disease, on hemodialysis on a Wednesday, Wednesday, Wednesday schedule. 2. COVID pneumonia. 3. Acute hypoxic respiratory failure secondary to COVID pneumonia. 4. Volume overload, currently improved. 5. Mental status changes and confusion, currently stable. 6. Hypertension, fairly stable, improved with ultrafiltration. PLAN: UF of about 2 L today. We will plan for an additional treatment tomorrow for a couple of hours for additional UF to help with the respiratory status. However, patient does not appear to be significantly volume-overloaded. If her blood pressure tolerates, we will try to remove another 2 L tomorrow. Continue the steroids for management of the COVID pneumonia. MMODL / IJN: [id number] /
--- NOTE | 2020-08-02 23:31 | PN ---
PROGRESS NOTE DATE OF SERVICE: 08/02/2020 REASON FOR FOLLOWUP: COVID-19 pneumonia. INTERVAL HISTORY: The patient started spiking fever last night and running a fever of 100.9 to 101 degrees Fahrenheit. The patient is lethargic, on a BiPAP. The patient is hemodynamically stable, not on pressor support. No vomiting, diarrhea or any other changes reported by the nursing staff. PHYSICAL EXAMINATION: Blood pressure 113/56, pulse of 74, temperature 100.8. She is 93% on BiPAP. General description is an elderly female lying in bed in no distress. RESPIRATORY SYSTEM: Unlabored breathing with decreased intensity of breath sounds. No wheeze. HEART: S1, S2. Regular rate and rhythm. ABDOMEN: Soft. No tenderness. LABS: No new labs have been obtained today. DIAGNOSTIC IMPRESSION AND PLAN: Patient with acute COVID-19 infection, now with evidence of a new fever, concern for possible secondary bacterial component. We will add antibiotic therapy. Choices are limited because of her PENICILLIN ALLERGY. Will repeat the cultures and monitor her clinical course closely. MMODL / IJN: [id number] /
[2020-08-03] MEDS: LORazepam 2 MG/ML INJ IV PRN (05:03)
[2020-08-03 06:10] LABS: Glucose,Whole Blood 205 mg/dL (75-99)
[2020-08-03] MEDS: LEVOTHYROXINE 100 MCG TAB PO SCH (06:21)
[2020-08-03] MEDS: SODIUM CHLORIDE 0.9% 1,000 ML IV SCH (06:21)
[2020-08-03] MEDS: PANTOPRAZOLE 40 MG TABLET PO SCH (06:21)
[2020-08-03] MEDS: INSULIN ASPART (NovoLOG) 100 UNIT/ML VIAL SQ SCH ×3 (06:35→17:22)
[2020-08-03] MEDS: BUDESONIDE 0.5 MG/2 ML NEBU INHALATION SCH ×2 (08:34→21:05)
[2020-08-03] MEDS ORDERED: ACETAMINOPHEN IV (For NPO) 1,000 MG in EMPTY BAG 1 BAG IVPB PRN (08:42)
[2020-08-03 08:55] LABS: ABG Base Excess 1.1 mmol/L; ABG HCO3 26 mmol/L (21-25); ABG Oxygen Saturation 89.7 % (94-97); ABG PCO2 39 mmHg (35-45); ABG PH 7.43 (7.35-7.45); ABG TCO2 27 mmol/L (19-24); Allen Test Performed? Yes
[2020-08-03 08:56] LABS: ABG PO2 57 mmHg (83-108)
[2020-08-03] MEDS ORDERED: CEFEPIME 2 GM in SODIUM CHLORIDE 0.9% 100 ML IVPB SCH (09:00)
[2020-08-03] MEDS: SYMBICORT 160-4.5 MCG INHALER INHALATION SCH ×2 (09:00→21:05)
[2020-08-03 09:24] LABS: HCT 30.3 % (34.0-46.0); HGB 10.1 gm/dL (11.4-16.0); Hypochromasia Slight; MCH 31.3 pg (25.0-35.0); MCHC 33.3 g/dL (31.0-37.0); MCV 93.9 fL (80.0-100.0); Mean Platelet Volume 9.5; Platelet Count 157 k/uL (150-450); RBC 3.23 m/uL (3.80-5.40); RDW 15.4 % (11.5-15.5); WBC 5.9 k/uL (3.8-10.6)
[2020-08-03] MEDS: DEXAMETHASONE SOD PHOSPHATE 10 MG/ML 1 ML VIAL IV SCH (09:29)
[2020-08-03 09:31] LABS: Albumin 2.1 g/dL (3.5-5.0); Calcium 7.9 mg/dL (8.4-10.2); Potassium 3.8 mmol/L (3.5-5.1); Total Bilirubin 1.9 mg/dL (0.2-1.3); Total Protein 4.5 g/dL (6.3-8.2)
[2020-08-03] MEDS: AMIODARONE 100 MG TAB PO SCH (09:56)
[2020-08-03] MEDS: APIXABAN 2.5 MG TABLET PO SCH (09:56)
[2020-08-03] MEDS: ASCORBIC ACID 500 MG TAB PO SCH (09:56)
[2020-08-03] MEDS: ISOSORBIDE MONONITRATE ER 30 MG TAB.ER.24H PO SCH (09:57)
[2020-08-03] MEDS: PROPRANOLOL 10 MG TAB PO SCH (09:57)
[2020-08-03] MEDS: CHOLECALCIFEROL 25 MCG (1000 IU) TABLET PO SCH (09:57)
[2020-08-03] MEDS: ZINC SULFATE 220 MG CAP PO SCH (09:57)
--- NOTE | 2020-08-03 11:06 | P.PN ---
Subjective Patient is seen in follow-up for end-stage renal disease. She is maintained on hemodialysis on Wednesday schedule. Currently on BiPAP. Patient is unable to answer any questions. Daughter present at bedside. Vital signs are stable. General: The patient appeared well nourished and normally developed. HEENT: On BiPAP. LUNGS: Breath sounds decreased. HEART: Rate and Rhythm are regular. ABDOMEN: Soft, nondistended. EXTREMITITES: No edema. Objective - Vital Signs Vital signs: Vital Signs Temp 100.7 F H 08/03/20 08:00 Pulse 73 08/03/20 08:00 Resp 35 H 08/03/20 08:00 BP 99/54 08/03/20 08:00 Pulse Ox 92 L 08/03/20 08:00 Intake & Output 08/02/20 08/03/20 08/03/20 18:59 06:59 18:59 Intake Total 0 Output Total 1999 2 Balance -1999 -2 0 Weight 60.5 kg 58.5 kg Intake: Oral 0 Output: Stool 2 1999 Other: Voiding Method Diaper Diaper Diaper # Voids 1 1 # Bowel Movements 1 - Labs CBC & Chem 7: 08/03/20 08:37 08/03/20 08:37 Labs: Abnormal Lab Results - Last 24 Hours (Table) 08/02/20 08/02/20 08/02/20 Range/Units 11:35 16:40 20:03 RBC (3.80-5.40) m/uL Hgb (11.4-16.0) gm/dL Hct (34.0-46.0) % ABG pO2 (83-108) mmHg ABG HCO3 (21-25) mmol/L ABG Total CO2 (19-24) mmol/L ABG O2 Saturation (94-97) % Sodium (137-145) mmol/L Chloride (98-107) mmol/L BUN (7-17) mg/dL Creatinine (0.52-1.04) mg/dL Glucose (74-99) mg/dL POC Glucose (mg/dL) 110 H 162 H 231 H (75-99) mg/dL Calcium (8.4-10.2) mg/dL Total Bilirubin (0.2-1.3) mg/dL AST (14-36) U/L ALT (4-34) U/L C-Reactive Protein (<10.0) mg/L Total Protein (6.3-8.2) g/dL Albumin (3.5-5.0) g/dL Procalcitonin (0.02-0.09) ng/mL 08/02/20 08/02/20 08/03/20 Range/Units 23:20 23:20 06:08 RBC (3.80-5.40) m/uL Hgb (11.4-16.0) gm/dL Hct (34.0-46.0) % ABG pO2 (83-108) mmHg ABG HCO3 (21-25) mmol/L ABG Total CO2 (19-24) mmol/L ABG O2 Saturation (94-97) % Sodium (137-145) mmol/L Chloride (98-107) mmol/L BUN (7-17) mg/dL Creatinine (0.52-1.04) mg/dL Glucose (74-99) mg/dL POC Glucose (mg/dL) 205 H (75-99) mg/dL Calcium (8.4-10.2) mg/dL Total Bilirubin (0.2-1.3) mg/dL AST (14-36) U/L ALT (4-34) U/L C-Reactive Protein 249.3 H (<10.0) mg/L Total Protein (6.3-8.2) g/dL Albumin (3.5-5.0) g/dL Procalcitonin 13.34 H (0.02-0.09) ng/mL 08/03/20 08/03/20 08/03/20 Range/Units 08:37 08:37 08:52 RBC 3.23 L (3.80-5.40) m/uL Hgb 10.1 L (11.4-16.0) gm/dL Hct 30.3 L (34.0-46.0) % ABG pO2 57 L* (83-108) mmHg ABG HCO3 26 H (21-25) mmol/L ABG Total CO2 27 H (19-24) mmol/L ABG O2 Saturation 89.7 L (94-97) % Sodium 131 L (137-145) mmol/L Chloride 96 L (98-107) mmol/L BUN 56 H (7-17) mg/dL Creatinine 4.00 H (0.52-1.04) mg/dL Glucose 117 H (74-99) mg/dL POC Glucose (mg/dL) (75-99) mg/dL Calcium 7.9 L (8.4-10.2) mg/dL Total Bilirubin 1.9 H (0.2-1.3) mg/dL AST 237 H (14-36) U/L ALT 601 H (4-34) U/L C-Reactive Protein (<10.0) mg/L Total Protein 4.5 L (6.3-8.2) g/dL Albumin 2.1 L (3.5-5.0) g/dL Procalcitonin (0.02-0.09) ng/mL Assessment and Plan Plan: Assessment: 1. End-stage renal disease maintained on hemodialysis on Wednesday schedule. 2. Acute hypoxic respiratory failure secondary to covid-19 pneumonia currently on BiPAP. 3. Hyponatremia secondary to chronic kidney disease. 4. Anemia of chronic kidney disease maintained on Aranesp. Plan: Short hemodialysis treatment today with goal 1-1-1/2 L UF. Case discussed with the daughter. She is unsure about intubation. Also considering transfer to another facility.
[2020-08-03] MEDS: ALBUTEROL HFA INHALER INHALATION PRN (11:15)
[2020-08-03] MEDS ORDERED: SODIUM CHLORIDE 0.9% 500 ML 500 ML IV ONE (11:33)
[2020-08-03 13:35] LABS: Band Neutrophils % 18 %; Lymphocytes # (M) 0.24 k/uL (1.0-4.8); Metamyelocytes # (M) 0.12 k/uL (0); Metamyelocytes % 2 %; Monocytes # (M) 0.41 k/uL (0-1.0); Neutrophils % (M) 71 %; Nucleated Red Blood Cells 0 /100 WBC (0-0); Total Cells Counted 200
[2020-08-03 13:36] LABS: Poikilocytosis (M) Present; RBC Fragments Present
--- NOTE | 2020-08-03 15:20 | P.PN ---
Subjective Progress Note Date: 08/03/20 (Critical care time 45 minutes) Principal diagnosis: Acute hypoxic respiratory failure Altered mental status due to Covid 19 pneumonia as well as hypertension Hypotension Acute covid 19 pneumonia Bilateral pleural effusion Bilateral basal atelectasis Shortness of breath and cough likely multifactorial related to above Chronic renal failure on hemodialysis Fluid overload 08/03/2020, patient seen eval examined during the rounds labs reviewed medications reviewed respiratory status remains marginal, FiO2 is increased 100%, patient is on continuous BiPAP support, current BiPAP setting include 15/10, sats are mid 70s to 80s, however nailbeds are painted with nail [facility] with cold hands is very lethargic barely arousable, patient is to go to ICU unfortunately not much bed and staff available in the ICU, I have discussed with ICU in charge nurse as well as nursing tapper supervisor they aren't process of moving patient's and creating a bed, daughter initially expressed patient desire not to be placed on life support however changed her mind patient remains on full code, labs done today white cell count is 5900 and stat arterial blood gas was done pH is 7.4 pCO2 of 39 and pO2 57, BUN/creatinine is 56 and 4, AST and ALT up to 37 and 601 total bilirubin is 1.9, pro calcitonin is 13.34, C-reactive proteins 243 08/02/2020, patient seen eval reexamined during the rounds somnolent but arousable denies any chest pain, remains on high flow oxygen alternating with BiPAP 15/10 and 50% oxygen throughout the day, patient has a dialysis more than 2 L have been removed, chest x-ray continued to show bilateral infiltrate along with effusion 08/01/2020, patient seen eval examined remains short of breath, just has been placed on BiPAP due to consistent hypoxia, ultrasound of the chest has been reviewed on the right side there is minimal effusion, left side is small effusion of 6.5 cm seen, would recommend continuation on dialysis with negative fluid balance as thoracentesis will carry are more complication, T-max is 99, respiratory rate slightly 5 today on 70% BiPAP saturation is 93% 07/31/2020, patient seen eval examined during the rounds labs reviewed med ications reviewed slightly more short of breath, remains on 6 L oxygen, status post hemodialysis, prior ultrasound reviewed a repeat another ultrasound if significant fluid is still present consider doing thoracentesis 07/30/2020, patient seen audrey malcolm has been restless overnight yesterday day smith had a long dialysis 2 L of fluid has been removed patient resting now did have a single dose of Ativan IV, oxygen is down to 4 L, ultrasound of the chest performed shows moderate right-sided effusion is small to moderate left-sided effusion This is a pleasant 80-year-old female with chronic renal failure patient is well-known to me for recurrent pleural effusion likely related to fluid overload renal failure and heart failure, patient came into the hospital due to fall and generalized weakness, patient was found to be on floor, on arrival she was noted to have oxygen saturation of just 88% however is 6 L came up to 96%, patient found to be covert positive, patient has been started on IV in remdesivir and steroids, still short of breath sats are mid 90s on 6 L nasal cannula, most rece nt chest x-ray shows bilateral pleural effusion atelectasis and infiltrate Objective - Vital Signs Vital signs: Vital Signs Temp 100.0 F H 08/03/20 11:09 Pulse 69 08/03/20 11:09 Resp 16 08/03/20 12:45 BP 88/50 08/03/20 12:15 Pulse Ox 81 L 08/03/20 12:45 Intake & Output 08/02/20 08/03/20 08/03/20 18:59 06:59 18:59 Intake Total 500 Output Total 1999 2 Balance -1999 - 500 Weight 60.5 kg 58.5 kg Intake: Intake, IV Titration 500 Amount Sodium Chloride 0.9% 500 500 ml 500 ml @ 999 mls/hr IV .Q31M ONE Rx#:[id number] Oral 0 Output: Stool 2 Hemodialysis 1999 Other: Voiding Method Diaper Diaper Diaper # Voids 1 1 # Bowel Movements 1 - Exam - Constitutional General appearance: average body habitus, somnolent respond to painful stimuli Ears: bilateral: normal - Neck Neck: normal ROM Carotids: bilateral: upstroke normal Thyroid: bilateral: normal size - Respiratory Respiratory: bilateral: diminished - Cardiovascular Rhythm: regular Heart sounds: normal: S1, S2 - Gastrointestinal General gastrointestinal: soft - Integumentary Integumentary: normal turgor - Neurologic Neurologic: CNII-XII intact - Musculoskeletal Musculoskeletal: gait normal, generalized weakness, strength equal bilaterally - Labs CBC & Chem 7: 08/03/20 08:37 08/03/20 08:37 Labs: Abnormal Lab Results - Last 24 Hours (Table) 08/02/20 08/02/20 08/02/20 Range/Units 16:40 20:03 23:20 RBC (3.80-5.40) m/uL Hgb (11.4-16.0) gm/dL Hct (34.0-46.0) % Lymphocytes # (Manual) (1.0-4.8) k/uL Metamyelocytes # (Man) (0) k/uL ABG pO2 (83-108) mmHg ABG HCO3 (21-25) mmol/L ABG Total CO2 (19-24) mmol/L ABG O2 Saturation (94-97) % Sodium (137-145) mmol/L Chloride (98-107) mmol/L BUN (7-17) mg/dL Creatinine (0.52-1.04) mg/dL Glucose (74-99) mg/dL POC Glucose (mg/dL) 162 H 231 H (75-99) mg/dL Calcium (8.4-10.2) mg/dL Total Bilirubin (0.2-1.3) mg/dL AST (14-36) U/L ALT (4-34) U/L C-Reactive Protein 249.3 H (<10.0) mg/L Total Protein (6.3-8.2) g/dL Albumin (3.5-5.0) g/dL Procalcitonin (0.02-0.09) ng/mL 08/02/20 08/03/20 08/03/20 Range/Units 23:20 06:08 08:37 RBC 3.23 L (3.80-5.40) m/uL Hgb 10.1 L (11.4-16.0) gm/dL Hct 30.3 L (34.0-46.0) % Lymphocytes # (Manual) 0.24 L (1.0-4.8) k/uL Metamyelocytes # (Man) 0.12 H (0) k/uL ABG pO2 (83-108) mmHg ABG HCO3 (21-25) mmol/L ABG Total CO2 (19-24) mmol/L ABG O2 Saturation (94-97) % Sodium (137-145) mmol/L Chloride (98-107) mmol/L BUN (7-17) mg/dL Creatinine (0.52-1.04) mg/dL Glucose (74-99) mg/dL POC Glucose (mg/dL) 205 H (75-99) mg/dL Calcium (8.4-10.2) mg/dL Total Bilirubin (0.2-1.3) mg/dL AST (14-36) U/L ALT (4-34) U/L C-Reactive Protein (<10.0) mg/L Total Protein (6.3-8.2) g/dL Albumin (3.5-5.0) g/dL Procalcitonin 13.34 H (0.02-0.09) ng/mL 08/03/20 08/03/20 Range/Units 08:37 08:52 RBC (3.80-5.40) m/uL Hgb (11.4-16.0) gm/dL Hct (34.0-46.0) % Lymphocytes # (Manual) (1.0-4.8) k/uL Metamyelocytes # (Man) (0) k/uL ABG pO2 57 L* (83-108) mmHg ABG HCO3 26 H (21-25) mmol/L ABG Total CO2 27 H (19-24) mmol/L ABG O2 Saturation 89.7 L (94-97) % Sodium 131 L (137-145) mmol/L Chloride 96 L (98-107) mmol/L BUN 56 H (7-17) mg/dL Creatinine 4.00 H (0.52-1.04) mg/dL Glucose 117 H (74-99) mg/dL POC Glucose (mg/dL) (75-99) mg/dL Calcium 7.9 L (8.4-10.2) mg/dL Total Bilirubin 1.9 H (0.2-1.3) mg/dL AST 237 H (14-36) U/L ALT 601 H (4-34) U/L C-Reactive Protein (<10.0) mg/L Total Protein 4.5 L (6.3-8.2) g/dL Albumin 2.1 L (3.5-5.0) g/dL Procalcitonin (0.02-0.09) ng/mL Assessment and Plan Assessment: Progressive encephalopathy likely multifactorial related to Covid 19 pneumonia, end-stage renal disease developing sepsis and possibly pneumonia Acute hypoxic respiratory failure with worsening respiratory status due to acute Covid 19 pneumonia and multiple factors Acute covid 19 pneumonia Bilateral pleural effusion Bilateral basal atelectasis Shortness of breath and cough likely multifactorial related to above Chronic renal failure on hemodialysis Fluid overload Plan: BiPAP support Continue Cefepime Continue Eliquis, as patient cannot take oral will put patient on Lovenox Chest x-ray Deep breathing exercise Incentive spirometry Supplemental oxygen Continue steroids No plans for thoracentesis on the left side as effusion small hiatal likelihood of complication Continue hemodialysis Fall precautions Further plan of care and management as per clinical response of the patient Overall prognosis very guarded with poor likelihood of recovery Time with Patient: Greater than 30
[2020-08-03] MEDS ORDERED: ENOXAPARIN 30 MG/0.3 ML SYRINGE SQ SCH (15:30)
[2020-08-03 16:19] VITALS: BP 108/59; PULSE 76; RESP 33
[2020-08-03 17:12] LABS: Glucose,Whole Blood 99 mg/dL (75-99)
[2020-08-03 17:15] VITALS: TEMP 98
--- NOTE | 2020-08-03 19:47 | PN ---
PROGRESS NOTE DATE OF SERVICE: 08/03/2020 REASON FOR FOLLOWUP: 1. COVID-19 pneumonia. 2. Bacteremia. INTERVAL HISTORY: Patient has been running a fever. The patient also noticed to have worsening upper respiratory status on BiPAP currently sating only 76%. The patient is hemodynamically stable though. No nausea, vomiting, diarrhea or any other changes reported by the nursing staff. PHYSICAL EXAMINATION: Blood pressure 108/51 with pulse 76, temperature is 101, T-max is 101.8. She is 76% on BiPAP. General description is an elderly female lying in bed in no distress. Respiratory system: Unlabored breathing, coarse breath sounds bilaterally. No wheeze. Heart S1, S2. Regular rate and rhythm. ABDOMEN: Soft, no tenderness. LABS: Hemoglobin is 10.1, white count of 5.9, creatinine 4.0. AST/ALT has improved, still elevated, procalcitonin 13.34. DIAGNOSTIC IMPRESSION AND PLAN: Patient with acute respiratory failure which is multifactorial in this patient who did have Covid 19 pneumonia with possible component of bacterial with gram negative bacteremia. Patient is covered with cefepime. Overall worsening of her respiratory status. May end up getting intubated. Detailed discussion with the daughter as the patient may be better for . However, she has been refusing. All questions were answered in layman's terms. MMODL / IJN: [id number] /
--- NOTE | 2020-08-04 07:25 | DS ---
DISCHARGE SUMMARY An 80-year-old white female with COVID pneumonia, worsening respiratory distress, going on 100% non-rebreather. She was hypotensive and had hypoxemia into the 80s. She coded. She as she was DNR per family. COVID took her. She of COVID pneumonia, acute respiratory failure secondary to COVID, end-stage renal disease, hypertension, diabetes. Discussed case with her nurse and the family multiple times today for long periods of time, over an hour. Patient after she finally was made DNR and for worsening respiratory failure. Transfers to [facility] and [facility] were denied due to renal disease, etc. And her age. All attempts by Midwife Practitioner, Infectious Disease were given, renal disease doctor. She still despite maximum care. Discussed the case with the family, etc. MMCINDYL / ENEN: [id number] /
[2020-08-04] MEDS ORDERED: DARBEPOETIN ALFA 40 MCG/0.4 ML SYRINGE SQ SCH (09:00)
--- NOTE | 2020-08-04 10:21 | PN ---
PROGRESS NOTE ADDENDUM: Severe protein calorie malnutrition. MMODL / IJN: [id number] /
--- NOTE | 2020-08-05 09:34 | CDI ---
Documentation Clarification Form Mortality Review Date: 08/05/2020 09:08:33 AM From: Gavi Chacon RN, CCDS Admit Date: 07/28/2020 01:16:00 AM Patient Name: Page Travis Visit Number: [id number] Discharge Date: 08/03/2020 10:48:00 PM ATTENTION: The Clinical Documentation Specialists (CDI) and [facility] Coding Staff appreciate your assistance in clarifying documentation. Please respond to the clarification below the line at the bottom and electronically sign. The CDI & [facility] Coding staff will review the response and follow-up if needed. Please note: Queries are made part of the Legal Health Record. If you have any questions, please contact the author of this message via ITS. Dr. Alexander Sarkar Your patient has the documented diagnosis of unspecified CHF in the ED Notes, ID/Pulmonary/Nephrology Consults and Progress Notes, and requires further specificity regarding the type & acuity of CHF is requested to accurately reflect SOI/ROM of this patient. History/Risk Factors: Afib RVR, Chronic CHF, moderate pulmonary HTN, ESRD on HD, NIDDM II, CHF, COPD, HX of pleural effusions Clinical Indicators: 07/27 ED Note: Pt recently admitted to [facility] on 06/25/19 with Afib RVR, diastolic heart failure, ESRD with hemodialysis." 07/29-08/03 Pulmonary consult and progress notes: "This is a pleasant 80-year-old female with chronic renal failure patient is well-known to me for recurrent pleural effusion likely related to fluid overload renal failure and heart failure, patient came into the hospital due to fall." 07/27 2108 VS/Pulse OX: temp 98, HR 72, RR 20, B/P 134/79, Spo2 88% room air 07/27 BNP: 25467 06/25 Echocardiogram Results: EF 50-55%, LA is severely dilated, moderate to severe aortic stenosis, moderate to severe pulmonary HTN 07/27 Chest X Ray: Pleural effusions with basilar pulmonary infiltrates and atelectasis that is worse than last exam. There is probably some heart failure." Treatment: 08/03 0.9% NS IVF bolus 500 CC 07/28-08/03 Inderal 30 mg PO BID 07/30-08/03 Imdur 30 mg PO Daily, decreased on 07/29 from 60 mg PO Daily 07/31 Nephrology Consulted- 08/02 U/F for 2L off, plan for additional U/F 2L to help with respiratory status 08/03, 08/03 HD held d/t Hypotension. In your professional opinion, can you please clarify the [acuity and type] of CHF if known? [ ] Acute Diastolic Heart Failure (preserved EF) [ ] Chronic Diastolic Heart Failure (preserved EF) [ ] Acute on Chronic Diastolic Heart Failure (preserved EF) [ ] Acute Systolic & Diastolic Heart Failure [ ] Chronic Systolic & Diastolic Heart Failure [ ] Acute on Chronic Heart Failure Systolic & Diastolic Heart Failure [ ] Other, please specify [ ] Unable to determine (Template Last Revised: May 2020) MTDD
--- NOTE | 2020-08-05 09:43 | CDI ---
Documentation Clarification Form Mortality Review Date: 08/05/2020 09:41:20 AM From: Gavi Chacon RN, CCDS Admit Date: 07/28/2020 01:16:00 AM Patient Name: Page Travis Visit Number: [id number] Discharge Date: 08/03/2020 10:48:00 PM ATTENTION: The Clinical Documentation Specialists (CDI) and [facility] Coding Staff appreciate your assistance in clarifying documentation. Please respond to the clarification below the line at the bottom and electronically sign. The CDI & [facility] Coding staff will review the response and follow-up if needed. Please note: Queries are made part of the Legal Health Record. If you have any questions, please contact the author of this message via ITS. Dr. Alexander Sarkar Atrial Fibrillation is documented in all of the Consult Notes and requires additional clarification regarding the type of atrial fibrillation. History/Risk Factors: Atrial Fib, pleural effusions, chronic CHF, ESRD on HD, NIDDM II, COPD, HTN, Pulmonary HTN, DVT, syncope Clinical Indicators: 07/27 EKG: NSR 07/29 GI consult: atrial fibrillation on Eliquis therapy." Treatment: 07/29 Amiodarone 200 mg PO Daily 07/30 Amiodarone 100 mg PO Daily 08/01-08/03 Eliquis 2.5 mg Po BID 07/28-08/03 Inderal 30 mg PO BID Please clarify the type of atrial fibrillation, if known: [ ] Chronic/Permanent [ ] Paroxysmal [ ] Other, please specify [ ] Unable to determine (Template Last Revised: June 2020) MTDD
--- NOTE | 2020-08-07 06:30 | CDI ---
Documentation Clarification Form Mortality Review 2nd Request Date: 08/05/2020 09:08:00 AM From: Gavi Chacon RN, CCDs Admit Date: 07/28/2020 01:16:00 AM Patient Name: Page Travis Visit Number: [id number] Discharge Date: 08/03/2020 10:48:00 PM ATTENTION: The Clinical Documentation Specialists (CDI) and [facility] Coding Staff appreciate your assistance in clarifying documentation. Please respond to the clarification below the line at the bottom and electronically sign. The CDI & [facility] Coding staff will review the response and follow-up if needed. Please note: Queries are made part of the Legal Health Record. If you have any questions, please contact the author of this message via ITS. . Dr. Alexander Sarkar Your patient has the documented diagnosis of unspecified CHF in the ED Notes, ID/Pulmonary/Nephrology Consults and Progress Notes, and requires further specificity regarding the type & acuity of CHF is requested to accurately reflect SOI/ROM of this patient. History/Risk Factors: Afib RVR, Chronic CHF, moderate pulmonary HTN, ESRD on HD, NIDDM II, CHF, COPD, HX of pleural effusions Clinical Indicators: 07/27 ED Note: Pt recently admitted to [facility] on 06/25/19 with Afib RVR, diastolic heart failure, ESRD with hemodialysis." 07/29-08/03 Pulmonary consult and progress notes: "This is a pleasant 80-year-old female with chronic renal failure patient is well-known to me for recurrent pleural effusion likely related to fluid overload renal failure and heart failure, patient came into the hospital due to fall." 07/27 2108 VS/Pulse OX: temp 98, HR 72, RR 20, B/P 134/79, Spo2 88% room air 07/27 BNP: 73131 06/25 Echocardiogram Results: EF 50-55%, LA is severely dilated, moderate to severe aortic stenosis, moderate to severe pulmonary HTN 07/27 Chest X Ray: Pleural effusions with basilar pulmonary infiltrates and atelectasis that is worse than last exam. There is probably some heart failure." Treatment: 08/03 0.9% NS IVF bolus 500 CC 07/28-08/03 Inderal 30 mg PO BID 07/30-08/03 Imdur 30 mg PO Daily, decreased on 07/29 from 60 mg PO Daily 07/31 Nephrology Consulted- 08/02 U/F for 2L off, plan for additional U/F 2L to help with respiratory status 08/03, 08/03 HD held d/t Hypotension. In your professional opinion, can you please clarify the [acuity and type] of CHF if known? [ ] Acute Diastolic Heart Failure (preserved EF) [ ] Chronic Diastolic Heart Failure (preserved EF) [ ] Acute on Chronic Diastolic Heart Failure (preserved EF) [ ] Acute Systolic & Diastolic Heart Failure [ ] Chronic Systolic & Diastolic Heart Failure [ ] Acute on Chronic Heart Failure Systolic & Diastolic Heart Failure [ ] Other, please specify [ ] Unable to determine (Template Last Revised: May 2020) MTDD
--- NOTE | 2020-08-07 06:40 | CDI ---
Documentation Clarification Form Mortality Review 2nd request Date: 08/05/2020 09:41:00 AM From: Gavi Chacon Admit Date: 07/28/2020 01:16:00 AM Patient Name: Page Travis Visit Number: [id number] Discharge Date: 08/03/2020 10:48:00 PM ATTENTION: The Clinical Documentation Specialists (CDI) and [facility] Coding Staff appreciate your assistance in clarifying documentation. Please respond to the clarification below the line at the bottom and electronically sign. The CDI & [facility] Coding staff will review the response and follow-up if needed. Please note: Queries are made part of the Legal Health Record. If you have any questions, please contact the author of this message via ITS. Dr. Alexander Sarkar Atrial Fibrillation is documented in all of the Consult Notes and requires additional clarification regarding the type of atrial fibrillation. History/Risk Factors: Atrial Fib, pleural effusions, chronic CHF, ESRD on HD, NIDDM II, COPD, HTN, Pulmonary HTN, DVT, syncope Clinical Indicators: 07/27 EKG: NSR 07/29 GI consult: atrial fibrillation on Eliquis therapy." Treatment: 07/29 Amiodarone 200 mg PO Daily 07/30 Amiodarone 100 mg PO Daily 08/01-08/03 Eliquis 2.5 mg Po BID 07/28-08/03 Inderal 30 mg PO BID Please clarify the type of atrial fibrillation, if known: [ ] Chronic/Permanent [ ] Paroxysmal [ ] Other, please specify [ ] Unable to determine (Template Last Revised: June 2020) MTDD
== END 2020-08-03 22:48 | disposition expired | DRG 177 ==
LOC: EC 21:07 → 3SCARD 07-28 01:16
PROVIDERS: ADMIT Family Medicine; ATTEND Family Medicine
PROC: 5A0945A Assistance with Respiratory Ventilation, 24-96 Consecutive Hours, High Flow/Velocity Cannula (ICD-10-PCS; 2020-07-27)
PROC: 5A09457 Assistance with Respiratory Ventilation, 24-96 Consecutive Hours, Continuous Positive Airway Pressure (ICD-10-PCS; principal; 2020-07-28)
PROC: 5A1D70Z Performance of Urinary Filtration, Intermittent, Less than 6 Hours Per Day (ICD-10-PCS; 2020-07-30)
DX: U07.1 COVID-19 (principal); N18.6 End stage renal disease; J12.82 Pneumonia due to coronavirus disease 2019; J96.01 Acute respiratory failure with hypoxia; E43 Unspecified severe protein-calorie malnutrition; A41.89 Other specified sepsis; G93.41 Metabolic encephalopathy; I13.2 Hypertensive heart and chronic kidney disease with heart failure and with stage 5 chronic kidney disease, or end stage renal disease; J44.0 Chronic obstructive pulmonary disease with (acute) lower respiratory infection; F05 Delirium due to known physiological condition; J98.11 Atelectasis; M62.82 Rhabdomyolysis; E87.1 Hypo-osmolality and hyponatremia; J90 Pleural effusion, not elsewhere classified; Z79.01 Long term (current) use of anticoagulants; Z79.890 Hormone replacement therapy; I48.91 Unspecified atrial fibrillation; E78.5 Hyperlipidemia, unspecified; E11.22 Type 2 diabetes mellitus with diabetic chronic kidney disease; I27.20 Pulmonary hypertension, unspecified; Z83.3 Family history of diabetes mellitus; R74.01 Elevation of levels of liver transaminase levels; Z99.2 Dependence on renal dialysis; Z66 Do not resuscitate; F03.90 Unspecified dementia, unspecified severity, without behavioral disturbance, psychotic disturbance, mood disturbance, and anxiety; D63.1 Anemia in chronic kidney disease; M89.9 Disorder of bone, unspecified; Z88.0 Allergy status to penicillin; I95.9 Hypotension, unspecified; B96.89 Other specified bacterial agents as the cause of diseases classified elsewhere; Z68.23 Body mass index [BMI] 23.0-23.9, adult; Z79.899 Other long term (current) drug therapy; Z86.718 Personal history of other venous thrombosis and embolism; E03.9 Hypothyroidism, unspecified; Z90.49 Acquired absence of other specified parts of digestive tract; I50.9 Heart failure, unspecified
CPT/HCPCS: 36415; 36600; 70450; 71045; 71046; 72125; 76604; 76705; 80053; 80074; 82140; 82150; 82553; 82805; 83605; 83615; 83690; 83735; 83880; 84145; 84484; 85025; 85027; 85610; 85730; 86140; 87040; 87077; 87186; 87635; 90935; 93005; 94640; 94660; 94760; 99291